=== PATIENT | male | born 1955 | race Caucasian/White ===

== ENCOUNTER → 2023-04-11 23:44 | Outpatient (CLI) | payer MEDICARE, SELFPAY ==
[2023-04-11 19:16] LABS: Basophils % 0.2 % (0.1-2.0); Eosinophils # 0.1 K/mm3 (0.0-0.4); Eosinophils % 1.1 % (0.1-12.0); Hematocrit 51.6 % (42.0-52.0); Hemoglobin 16.2 g/dL (14.1-18.0); Lymphocytes # 1.6 K/mm3 (0.7-4.5); Lymphocytes % 20.3 % (10-50); Mean Corpuscular HGB Conc 31.3 g/dL (31.8-35.4); Mean Corpuscular Hemoglobin 30.7 pg (27.0-31.2); Mean Corpuscular Volume 98.2 fl (80-94); Mean Platelet Volume 9.6 fl (7.4-10.4); Monocytes # 0.7 K/mm3 (0.1-1.0); Monocytes % 8.3 % (1.7-9.3); Neutrophils # 5.6 K/mm3 (1.8-7.8); Neutrophils % 70.1 % (37.0-80.0); Platelet Count 212 K/mm3 (142-424); Red Blood Count 5.26 M/mm3 (4.60-6.20); Red Cell Distribution Width 13.6 % (11.5-17.5)
[2023-04-11 19:34] LABS: Chloride 99 mmol/L (98-107); Potassium 3.9 mmoL/L (3.5-5.1); Sodium 139 mmol/L (136-145)
[2023-04-11 19:37] LABS: Alanine Aminotransferase 27 U/L (12-78); Albumin/Globulin Ratio 1.4 (1.1-1.8); Alkaline Phosphatase 104 U/L (38-126); Anion Gap 12.9 mEq/L (5-15); Aspartate Amino Transferase 35 U/L (17-59); Bilirubin,Total 0.8 mg/dl (0.2-1.3); Blood Urea Nitrogen 19 mg/dl (9-20); Calcium 8.6 mg/dl (8.4-10.2); Carbon Dioxide 31 mmol/L (22.0-30.0); Estimated Glomerular Filt Rate 75 ml/min (>60); GFR (African American) 90 ML/MIN (>60); Globulin 2.8 g/dL (1.3-3.2); Glucose 104 mg/dl (74-100); Total Protein,Serum 6.8 g/dl (6.3-8.2)
[2023-04-11 20:53] LABS: Hemoglobin A1C 5.7 % (4.0-6.0)
== END ==
PROVIDERS: PCP Nurse Practitioner; Visit Provider Nurse Practitioner
DX: L97.919 Non-pressure chronic ulcer of unspecified part of right lower leg with unspecified severity (principal); Z13.1 Encounter for screening for diabetes mellitus; Z79.899 Other long term (current) drug therapy
CPT/HCPCS: 80053; 83036; 85025; 87070; 87205

== ENCOUNTER 2023-09-05 19:24 | Outpatient (CLI) | payer MEDICARE, SELFPAY ==
[2023-09-05 18:59] LABS: Basophils % 0.2 % (0.1-2.0); Eosinophils # 0.1 K/mm3 (0.0-0.4); Eosinophils % 1.6 % (0.1-12.0); Hematocrit 46.5 % (42.0-52.0); Hemoglobin 14.9 g/dL (14.1-18.0); Lymphocytes # 1.6 K/mm3 (0.7-4.5); Lymphocytes % 20.3 % (10-50); Mean Corpuscular HGB Conc 32.1 g/dL (31.8-35.4); Mean Corpuscular Hemoglobin 32.6 pg (27.0-31.2); Mean Corpuscular Volume 101.6 fl (80-94); Mean Platelet Volume 9.2 fl (7.4-10.4); Monocytes # 0.6 K/mm3 (0.1-1.0); Monocytes % 7.3 % (1.7-9.3); Neutrophils # 5.4 K/mm3 (1.8-7.8); Neutrophils % 70.5 % (37.0-80.0); Platelet Count 182 K/mm3 (142-424); Red Blood Count 4.57 M/mm3 (4.60-6.20); Red Cell Distribution Width 13.5 % (11.5-17.5); White Blood Count 7.7 K/mm3 (4.8-10.8)
[2023-09-05 19:31] LABS: Alanine Aminotransferase 22 U/L (12-78); Albumin Level 3.6 g/dl (3.5-5.0); Albumin/Globulin Ratio 1.3 (1.1-1.8); Alkaline Phosphatase 111 U/L (38-126); Anion Gap 9.9 mEq/L (5-15); Aspartate Amino Transferase 31 U/L (17-59); Bilirubin,Total 0.9 mg/dl (0.2-1.3); Blood Urea Nitrogen 11 mg/dl (9-20); Calcium 8.8 mg/dl (8.4-10.2); Carbon Dioxide 30 mmol/L (22.0-30.0); Chloride 101 mmol/L (98-107); Estimated Glomerular Filt Rate 113 ml/min (>60); GFR (African American) 137 ML/MIN (>60); Globulin 2.7 g/dL (1.3-3.2); Glucose 106 mg/dl (74-100); Potassium 3.9 mmoL/L (3.5-5.1); Sodium 137 mmol/L (136-145); Total Protein,Serum 6.3 g/dl (6.3-8.2)
== END 2023-09-05 23:59 ==
LOC: LAB.DROPOF 19:24
PROVIDERS: PCP Family Medicine; Visit Provider Family Medicine
DX: R60.0 Localized edema (principal); L03.115 Cellulitis of right lower limb; Z79.899 Other long term (current) drug therapy
CPT/HCPCS: 80053; 85025

== ENCOUNTER 2024-09-12 13:00 | Outpatient (POV) | payer MEDICARE, SELFPAY ==
--- NOTE | 2024-09-12 13:13 | EXP.PAIN.OV ---
HPI Data of Consult Patient: new to practice Consult date: 09/12/24 Requesting Physician: Sharifa Wagoner APRN Primary Care Provider: Lorne Caruso MD Consult Narrative Reason for consult: Low back pain, bilateral leg pain History of present illness: Mr. Graham is a 68 year old male who presents today as a new patient. He is a referral from [facility]. Today he rates his pain a 7 out of 10. He denies any initial injury or trauma that started his pain. He states that he has had chronic low back pain for years that has progressively worsened over time. He states it goes into both of his bilateral lower extremities. He states it is a constant sensation that is stabbing and then does have numbness and tingling into his legs. Patient does also state that he has peripheral neuropathy on top of it. Patient states that in the past he has had previous cervical fusion and that did injections for years with pain management and that these really did help. He states he has not had any injections since February. Patient states at that time they had even discussed possible stimulator trial and that he never proceeded forward with this. He states that he has been back to begin orthopedics there in [place] who did his previous neck surgery and they were not recommending lumbar surgery that they wanted him to try more conservative treatment such as the [employer] stimulator. Patient states that he has tried oral medications, heat and ice, topicals, physical therapy in the past and continued at home stretching exercise for longer than 12 weeks. Patient does state he has had a right hip replaced and left knee replaced in the past. He states that the pain is interfering with every activity of life. He states he only gets 2 to 3 hours of sleep due to the pain. He states when he gets up and walks that he feels like his legs are getting give out. He states that he still tries to walk is much as possible and exercise but it is gotten very limited. Patient states that he has to rely on ambulatory devices such as a walking stick now continuously. Patient does also make mention that he has his legs wrapped due to a history of blisters on his legs and that they are doing artery surgery in about 2 weeks. He states that they were adding some balloon to his legs.Patient is currently managed with gabapentin 300 mg twice a day from an outside provider. Patient has been tried on pregabalin, oxycodone and Percocet in the past. Patient does have history of heart issues including A-fib and is on blood thinner. He does have a pacemaker in place. He states that the Percocet was discontinued after he went to [facility] from his pain management because they stated he violated this contract with going to a different provider for injections. His Chris has been reviewed. CC: Sharifa Wagoner, [facility] Disclaimer: The information contained in this section may have been updated after the patient was seen, as this information can be updated by other users. Medical History Situational depression Peripheral vascular disease Paroxysmal atrial fibrillation Cellulitis of leg, right Bilateral lower extremity edema Diabetes mellitus screening Nonhealing ulcer of right lower leg Afib Hypertension Arthritis Surgical History Status post total hip replacement, right Hx of eye surgery Hx of carpal tunnel repair Hx of shoulder surgery Hx of left knee surgery Hx of mitral valve repair Hx of heart bypass surgery Family History Father Cancer multiple myeloma Sister Cancer Social History (Updated 09/12/24 @ 13:35 by Sushma aZvala RN) Smoking Status: Current every day smoker alcohol intake: current alcohol intake frequency: holidays/special occasions only current occupational status: retired and disabled Travel in the last 8 weeks: None Review of Systems Review of Systems Review of systems:: pertinent systems reviewed and negative unless documented below Review of systems (narrative): Review of Systems: General: No recent weight changes, no fever, no sleep disturbances Respiratory: No cough, no shortness of air, no recurring pulmonary infections Cardiovascular/peripheral vascular: No chest pain, no palpitations, no edema, no shortness of breath Gastrointestinal: No new onset incontinence, normal bowel movements reported Genitourinary: No new onset incontinence Musculoskeletal: Low back pain, bilateral leg pain Psychiatric: [Normal mood/affect] Neurological: [Denies weakness in extremities], [denies balance issues] Meds Home Medications and Allergies Home Medications ?Medication ?Instructions ?Recorded ?Confirmed ?Type apixaban 5 mg tablet (Eliquis) 5 mg PO DIRECTED Blood Thinner 04/11/23 09/12/24 History atorvastatin 40 mg tablet 40 mg PO DAILY Cholesterol 04/11/23 09/12/24 History losartan 25 mg tablet 25 mg PO DIRECTED BLOOD PRESSURE 04/11/23 09/12/24 History metoprolol succinate 100 mg 100 mg PO DAILY BLOOD PRESSURE 04/11/23 09/12/24 History tablet,extended release 24 hr torsemide 20 mg tablet 20 mg PO BID edema #60 tabs 09/05/23 09/12/24 Rx silver sulfadiazine 1 % topical 1 applic topical DAILY cellulitis 10/20/23 09/12/24 Rx cream (Silvadene) #50 grams aspirin 81 mg tablet,delayed 81 mg PO DAILY 08/08/24 09/12/24 History release cephalexin 500 mg capsule 500 mg PO BID 10 days #20 caps 08/08/24 09/12/24 Rx gabapentin 300 mg capsule 300 mg PO DAILY 08/08/24 09/12/24 History mupirocin 2 % topical ointment 1 applic topical TID #15 grams 08/08/24 09/12/24 Rx New Prescriptions to Start Prescriptions: Allergies Allergy/AdvReac Type Severity Reaction Status Date / Time morphine AdvReac Mild Verified 08/20/24 12:05 Objective Narrative: Physical Exam: General: Alert and oriented x3, no acute distress, pleasant and cooperative Lungs: Respirations even and unlabored, symmetrical chest expansion Eyes: PERRL Musculoskeletal: Flexion and extension of lumbar [spine] somewhat guarded secondary to pain, [antalgic gait noted] Neurological: Speech clear, no gross sensory deficit Additional findings Additional findings: [facility] MRI lumbar with and without contrast 01/09/2023 findings: Progressive intervertebral space narrowing at the L2-L3 level. Severe decubitus space narrowing at L3-L4 and L4-L5 similar to prior examination. Vertebral body heights are maintained. There are Modic type I endplate signal alteration at the L2-L3 level, slightly increased from prior examination. Degenerative retrolisthesis of L1 on L2 measuring 2 mm and retrolisthesis of L2 on L3 measuring 4 mm. Anterolisthesis of L3 on L4 measuring 3 mm. Marrow signal: Modic type I and/or type II marrow signal change involves 1 or more levels between L3 and S1. See details above. Level by level analysis: L1-L2: Unchanged disc bulge with superimposed left sided radicular/foraminal disc protrusion contributing to mild left lateral recess crowding and mild inferior left foraminal narrowing. L2-L3: Progressive right subarticular disc extrusion with caudal migration of 5 mm superimposed upon disc bulge contributing to increased moderate to severe right-sided foraminal narrowing. Mild canal and mild foraminal left-sided narrowing prior to exam. L3-L4: Postoperative level with previous laminectomy. Unchanged disc bulge and osteophytic ridging contributing to mild inferior foraminal narrowing bilaterally. Mild right lateral recess crowding. Canal and right lateral recess are patent. There is bilateral facet arthropathy with superimposed enhancement of synovium in this distribution and indicative of synovitis. L4-L5: Asymmetric left disc bulge and osteophytic ridging with mild bilateral facet arthropathy, similar to prior exam contributing to the severe left and moderate right foraminal narrowing. L5-S1 unchanged disc bulge with advanced bilateral facet arthropathy contributing to moderate to severe bilateral foraminal narrowing Assessment and Plan *Assessment and plan (1) Chronic back pain: Status: Acute Category: Medical Code(s): M54.9 - Dorsalgia, unspecified; G89.29 - Other chronic pain (2) Degenerative disc disease: Status: Acute Category: Medical (3) Lumbar spinal stenosis: Status: Acute Category: Medical Code(s): M48.061 - Spinal stenosis, lumbar region without neurogenic claudication (4) Chronic pain syndrome: Status: Acute Category: Medical Code(s): G89.4 - Chronic pain syndrome (5) Lumbar radiculopathy: Status: Acute Category: Medical Code(s): M54.16 - Radiculopathy, lumbar region Plan Patient has been dealing with chronic to severe pain throughout his low back and bilateral lower extremities for years that is progressively worsened. I did review over the risk and benefits of the spinal cord stimulator trial and he would like to proceed forward with this plan of care. Patient has been seen by neurosurgery and was not being recommended for surgical intervention at this time. It was recommended for possible spinal cord stimulator trial. Patient has tried and failed conservative therapy including oral medication, heat and ice, topicals, physical therapy, at home stretching exercise for longer than 12 weeks including multiple injections including RFA's and prior back surgery. Patient will be submitted for psychological evaluation and if he is deemed an appropriate candidate we will proceed forward with a spinal cord stimulator trial in future. Patient will return to clinic in 1 month. Patient has been instructed to contact the clinic with any concerns before the next appointment. Dr. Mosqueda has reviewed this note and agrees with this plan of care. This note was dictated using voice recognition software and make contain errors or omissions. All injections are used with Lidocaine, Bupivacaine and Depo Medrol. Occasionally urine drug screen is needed to verify patient's compliance with our office pain contract. This is ordered based off specific treatments related to chronic pain with the potential to abuse certain medications.
[2024-09-12 13:34] VITALS: BP 130/64; PULSE 60; RESP 18; O2SAT 94; BMI 35.3
== END 2024-09-12 23:59 | disposition home or self-care (01) ==
PROVIDERS: PCP Family Medicine; Visit Provider Nurse Practitioner Family
DX: M54.9 Dorsalgia, unspecified (principal); M48.061 Spinal stenosis, lumbar region without neurogenic claudication; G89.4 Chronic pain syndrome; M51.16 Intervertebral disc disorders with radiculopathy, lumbar region; Z73.89 Other problems related to life management difficulty; Z96.641 Presence of right artificial hip joint; Z96.652 Presence of left artificial knee joint; F17.210 Nicotine dependence, cigarettes, uncomplicated
CPT/HCPCS: 99202; G0463

== ENCOUNTER 2024-10-18 14:08 | Outpatient (POV) | payer MEDICARE, SELFPAY ==
[2024-10-18 15:10] VITALS: BP 134/75; PULSE 61; RESP 14; O2SAT 95; BMI 35.9
--- NOTE | 2024-10-18 16:14 | A.OFFVIS_ITS ---
[facility] Disclaimer: The information contained in this section may have been updated after the patient was seen, as this information can be updated by other users. Medical History Situational depression Peripheral vascular disease Paroxysmal atrial fibrillation Cellulitis of leg, right Bilateral lower extremity edema Diabetes mellitus screening Nonhealing ulcer of right lower leg Afib Hypertension Arthritis Surgical History Status post total hip replacement, right Hx of eye surgery Hx of carpal tunnel repair Hx of shoulder surgery Hx of left knee surgery Hx of mitral valve repair Hx of heart bypass surgery Family History Father Cancer multiple myeloma Sister Cancer Social History Smoking Status: Current every day smoker alcohol intake: current alcohol intake frequency: holidays/special occasions only current occupational status: other Travel in the last 8 weeks: None PM Subjective & Objective Subjective Subjective:: Patient is a pleasant 68-year-old male who presents today for 1 month follow-up. Today he rates his pain a 7 out of 10. He states he still continues to have the chronic low back pain that does radiate into his bilateral lower extremities with numbness and tingling. Patient states it is interfering with his ability perform activities of daily living such as cooking and cleaning. He states he cannot do anything due to the worsening pain symptoms. He has tried multiple therapies in the past and ongoing including oral medications, heat and ice, topicals, physical therapy, continued at home stretching exercise for longer than 12 weeks that was physician guided. Patient does state that he has had a lot going on related to his legs. Patient states that they were checking his veins and everything for possible blockages and have done multiple interventions. Patient does have a longstanding history of heart related pr oblems including A-fib and is on blood thinners. Patient does see a natural resources technician there at [facility] and does state Dr. Chau and Dr. Monge Who covers his pace maker. Patient has also completed his psychological evaluation about 2 weeks ago and does state that he still would like to proceed forward with the spinal cord stimulator trial. His Chris has been reviewed and is appropriate. Review of Systems: General: No recent weight changes, no fever, no sleep disturbances Respiratory: No cough, no shortness of air, no recurring pulmonary infections Cardiovascular/peripheral vascular: No chest pain, no palpitations, no edema, no shortness of breath Gastrointestinal: No new onset incontinence, normal bowel movements reported Genitourinary: No new onset incontinence Musculoskeletal: Low back pain, bilateral leg pain Psychiatric: [Normal mood/affect] Neurological: [Denies weakness in extremities], [denies balance issues] Pain at rest (0-10 scale): 7 Objective Objective:: Physical Exam: General: Alert and oriented x3, no acute distress, pleasant and cooperative Lungs: Respirations even and unlabored, symmetrical chest expansion Eyes: PERRL Musculoskeletal: Flexion and extension of lumbar [spine] somewhat guarded secondary to pain, [antalgic gait noted] positive leg raise Neurological: Speech clear, no gross sensory deficit Has patient had previous pain injection?: No Conservative treatment options previously tried: Home exercise plan Length of treatment: Longer than 12 weeks Meds Home Medications and Allergies Home Medications ?Medication ?Instructions ?Recorded ?Confirmed ?Type apixaban 5 mg tablet (Eliquis) 5 mg PO DIRECTED Blood Thinner 04/11/23 10/18/24 History atorvastatin 40 mg tablet 40 mg PO DAILY Cholesterol 04/11/23 10/18/24 History losartan 25 mg tablet 25 mg PO DIRECTED BLOOD PRESSURE 04/11/23 10/18/24 History metoprolol succinate 100 mg 100 mg PO DAILY BLOOD PRESSURE 04/11/23 10/18/24 History tablet,extended release 24 hr torsemide 20 mg tablet 20 mg PO BID edema #60 tabs 09/05/23 10/18/24 Rx silver sulfadiazine 1 % topical 1 applic topical DAILY cellulitis 10/20/23 10/18/24 Rx cream (Silvadene) #50 grams aspirin 81 mg tablet,delayed 81 mg PO DAILY 08/08/24 10/18/24 History release cephalexin 500 mg capsule 500 mg PO BID 10 days #20 caps 08/08/24 10/18/24 Rx gabapentin 300 mg capsule 300 mg PO DAILY 08/08/24 10/18/24 History mupirocin 2 % topical ointment 1 applic topical TID #15 grams 08/08/24 10/18/24 Rx New Prescriptions to Start Prescriptions: Allergies Allergy/AdvReac Type Severity Reaction Status Date / Time codeine Allergy Other Verified 10/09/24 13:37 morphine AdvReac Mild Verified 10/09/24 13:37 Assessment and Plan *Assessment and plan (1) Lumbar radiculopathy: Status: Acute Category: Medical Code(s): M54.16 - Radiculopathy, lumbar region (2) Chronic pain syndrome: Status: Acute Category: Medical Code(s): G89.4 - Chronic pain syndrome (3) Lumbar spinal stenosis: Status: Acute Category: Medical Code(s): M48.061 - Spinal stenosis, lumbar region without neurogenic claudication (4) Degenerative disc disease: Status: Acute Category: Medical (5) Chronic back pain: Status: Acute Category: Medical Code(s): M54.9 - Dorsalgia, unspecified; G89.29 - Other chronic pain (6) Peripheral vascular disease: Status: Acute Category: Medical Code(s): I73.9 - Peripheral vascular disease, unspecified Plan I did review over with the patient that although he has completed his psychological evaluation it is not officially in the computer at this point. I did discuss with the patient that we can tentatively get him scheduled for the spinal cord stimulator trial as long as he is deemed an appropriate candidate. We will reach out to that office to confirm that the report is in place and appropriate. Patient agrees with this plan of care. We did review over the risk and benefits of this procedure. I did also discuss with the patient that I do believe he would benefit from a lumbar epidural steroid injection. Patient is experiencing worsening pain in his low back with numbness and tingling into her lower extremities. Patient did have limited range of motion of her lumbar spine with a positive leg raise. I did discuss with patient that I do believe they would benefit from a lumbar epidural steroid injection. Risk and benefits were discussed with patient and the patient would like to proceed forward with this plan of care. Patient is on blood thinners written by natural resources technician there at [facility]. We will reach out to that provider and confirm that he can stop this medication prior to proceeding forward. Patient has tried and failed conservative therapy including continued at home stretching exercise for longer than 12 weeks. He has had chronic back pain for years that is progressively worsened. Patient has had multiple epidurals in the past that state have given significant improvement of more than 50%. He does state it has been well over a year since he has had 1. Patient has not had any epidurals with our office.We will schedule the patient for an LESI L4-L5 under fluoroscopy. Patient has been instructed to contact the clinic with any concerns before the next appointment. Dr. Mosqueda has reviewed this note and agrees with this plan of care. This note was dictated using voice recognition software and make contain errors or omissions. All injections are used with Lidocaine, Bupivacaine and Depo Medrol. Occasionally urine drug screen is needed to verify patient's compliance with our office pain contract. This is ordered based off specific treatments related to chronic pain with the potential to abuse certain medications.
== END 2024-10-18 23:59 | disposition home or self-care (01) ==
PROVIDERS: PCP Family Medicine; Visit Provider Nurse Practitioner Family
DX: M54.16 Radiculopathy, lumbar region (principal); G89.4 Chronic pain syndrome; M48.061 Spinal stenosis, lumbar region without neurogenic claudication; M54.9 Dorsalgia, unspecified; I73.9 Peripheral vascular disease, unspecified; Z96.641 Presence of right artificial hip joint; F17.200 Nicotine dependence, unspecified, uncomplicated; Z73.89 Other problems related to life management difficulty; Z79.01 Long term (current) use of anticoagulants
CPT/HCPCS: 99212; G0463

== ENCOUNTER 2024-11-19 13:20 | Day surgery (SDC) | payer MEDICARE, SELFPAY ==
[2024-11-19 13:27] VITALS: BP 128/67; PULSE 66; RESP 16; TEMP 36.8; O2SAT 95; BMI 35.9
[2024-11-19] MEDS: DEXAMETHASONE 10MG/ML 1ML VIAL 10 MG (13:36)
[2024-11-19 13:38] VITALS: BP 128/67; PULSE 66; RESP 18; O2SAT 95
--- NOTE | 2024-11-19 13:38 | EXP.PAIN.PRO ---
Procedure Date: 11/19/24 Time: 13:20 Anesthesiologist:: Josep Baugh CRNA Complications:: None Pre-procedure Diagnosis:: Degenerative disc lumbar spine multilevels. Lumbar radiculopathy. Lumbar spondylosis. Multilevel lumbar facet arthropathy. Lumbar spine postlaminectomy syndrome. Post-procedure Diagnosis:: Same. Indications for Procedure:: Patient is a very pleasant 68-year-old male who is new to our clinic. He he is here for lumbar epidural steroid injection at the L4-5 level. Patient has lumbar back surgery in the past without hardware. He has had multiple lumbar injections of different variations. He reports low back pain as well as bilateral hip and leg radicular symptoms. He rates his pain 7/10. Procedure Details:: Procedure: Lumbar epidural steroid injection under fluoroscopy Informed consent was obtained and the risks and benefits of the procedure were explained to the patient. The patient was taken to the procedure room and noninvasive monitors placed, including noninvasive blood pressure cuff and pulse oximeter. The back was viewed using C-arm Fluoroscopy and prepped using Chloraprep as a cleansing solution and the L4-L5 interspace was palpated. Skin and subcutaneous tissues were anesthetized using lidocaine 1.5% and a 25-gauge needle. After this, an 18-gauge Touhy epidural needle was placed into the L4-L5 interspace and advanced using fluoroscopic guidance and loss of resistance to air until the epidural space was encountered. After confirmation of needle placement in the epidural space, with dye, a solution containing normal saline, 3 mL and Depo-Medrol 80 mg were incrementally injected into the lumbar epidural space. The patient tolerated the procedure well with no complications. The patient was observed in the Pain Clinic and then discharged home neurologically intact. Plan and Disposition:: Patient was discharged without incident.
[2024-11-19 13:39] VITALS: BP 128/67; PULSE 66; RESP 18; O2SAT 95
[2024-11-19 13:44] VITALS: BP 127/68; PULSE 71; RESP 16; O2SAT 92
== END 2024-11-19 13:44 | disposition home or self-care (01) ==
PROVIDERS: PCP Family Medicine; Visit Provider Nurse Anesthetist, Certified Registered
DX: M51.16 Intervertebral disc disorders with radiculopathy, lumbar region (principal); M47.26 Other spondylosis with radiculopathy, lumbar region; M96.1 Postlaminectomy syndrome, not elsewhere classified
CPT/HCPCS: 62323; J1100

== ENCOUNTER 2024-12-16 14:40 | Outpatient (POV) | payer MEDICARE, SELFPAY ==
--- OUTSIDE RECORDS SUMMARY | 2023-05-11 07:10 | XMS_ITS | Continuity of Care Document ---
Author Organization [facility] Address [address] [place] [address] Phone Care Team Providers Care Digital Sales Director Name Role Phone René Ram MD Unavailable Unavailable Allergies, Adverse Reactions, Alerts Substance Reaction Status Criticality No Known Allergies Active No Inform ation Medications Medication Instructions Dosage Effective Dates (start - stop) Status Comments acetaminophen 500 mg tablet take 1 tablet by oral route every 6 hours as needed - Active ibuprofen 400 mg tablet take 1-2 tablets by oral route every 6 hours as needed for pain - Active oxycodone 5 mg tablet take 1 - 2 tablets by ORAL route every 4 - 6 hours as needed for moderate to severe post op pain - Active cyclobenzaprine 5 mg tablet take 1 - 2 tablets by oral route every 8 hours as needed for muscle spasms and/or pain - Active Medrol (Lorenzo) 4 mg tablets in a dose pack take by Oral route take as directed Not Available - Active oxycodone 5 mg capsule take 1 - 2 capsule by oral route every 6 hours as needed for pain as needed for Pain,Severe 7-10 On Pain Scale 5 MG - Active M54.16 Percocet 5 mg-325 mg tablet take 1 - 2 Tablet by ORAL route every 4 - 6 hours as needed 1-2 Tablet - Active MAX 9 A DAY promethazine 25 mg tablet take 1 tablet by oral route every 4 - 6 hours as needed 25 MG - Active Procedures Procedure Date Office/outpatient visit,est, mod 2022 DRAIN/INJ JOINT/BURSA W/US Methylprednisolone 80 MG inj Office/outpatient visit,est, mod 2022 Office/outpatient visit,est, mod 2022 Office/outpatient visit,est, mod 2022 Wrist endoscopy/rel trans carp lig Office/outpatient visit,new, mod 2022 Office/outpatient visit,est, mod 2022 Postop followup visit Postop followup visit Postop followup visit Remove lumbar spine lamina, 1 seg Remove added spine lamina, 1 seg 2021 PA Remove Lumbar Spine Lamina, 1 Seg May PA Remove Added Spine Lamina, 1 Seg Office/outpatient visit,est, mod 2021 Inject foramin, lumb/sacral, single Dexamethasone sodium phos Office/outpatient visit,est, mod 2021 DESTROY LUMB/SAC FACET JNT DESTROY L/S FACET JNT ADDL Dexamethasone sodium phos INJ PARAVERT F JNT L/S 1 LEV INJ PARAVERT F JNT L/S 2 LEV INJ PARAVERT F JNT L/S 1 LEV INJ PARAVERT F JNT L/S 2 LEV Office/outpatient visit,est, mod 2021 Inject foramin, lumb/sacral, single Dexamethasone sodium phos Naropin Office/outpatient visit,est, mod 2021 Naropin Methylprednisolone 80 MG inj Njx interlaminar lmbr/sac Office/outpatient visit,est, mod 2021 Office/outpatient visit,est, mod 2017 X-ray exam of neck spine2-3 views X-ray exam lwr spine, min 4 views Postop followup visit Revision of ulnar nerve at elbow 2016 Office/outpatient visit,new, mod 2016 Postop followup visit Revision of ulnar nerve at elbow 2013 Wrist endoscopy/rel trans carp lig Office/outpatient visit,new, mod 2013 Office/outpatient visit,est, mod 2013 MUSC TEST DONE W/N TEST COMP NRV CNDJ TST 5-6 STUDIES Office/outpatient visit,est, mod 2013 Office consultation, moderate 4 X-ray exam of neck spine2-3 views Advance Directives Directive Yes / No Effective Date File Name No Information Encounters Encounter Description Practice Location Reason(s) For Visit Diagnoses Date Provider Providers Copied on Encounter Office/outpa tient visit,est, mod [facility], [facility] [place], [place], [facility], tel:[phone] [facility] Unilateral primary osteoarthriti s, right hip 3 Yo Merritt. [address] [place], [id number], [place]. tel:[phone] Referring Provider: Alvarez Story, [address] [place], [place], [facility]. tel:[phone] [facility], [address] [place], [place], [facility], [place] tel:[phone] [facility] Unilateral primary osteoarthriti s, right hip 3 Travis Pino. [address] [place], [place], [facility], [place]. tel:[phone] Referring Provider: Alvarez Story, [address] [place], [place], [facility]. tel:[phone] Office/outpa tient visit,est, mod [facility], [address] [facility], [place], [facility], [place] tel:[phone] [facility] Unilateral primary osteoarthriti s, right hip 3 Yo Merritt. [address], [place], [place], [id number], [place]. tel:[phone] Referring Provider: Alvarez Story, [address] [facility], [place], [place], [facility]. tel:[phone] Office/outpa tient visit,est, mod [facility], [address], [facility], [place] tel:[phone] [facility] Spinal stenosis, lumbar region without neurogenic moo 3 Theodore Pino. [address] [facility] [place], [place], [place], [facility], [place]. tel:[phone] Referring Provider: Alvarez Story, [address] [facility], [place], [facility]. tel:[phone] Office/outpa tient visit,est, mod [facility], [facility] [place], [facility], [place] tel:[phone] [facility] Radiculopathy , lumbar region 3 Vicenta Rodriguez. [address] [place] [address], [address], . tel:[phone] Referring Provider: Michael Yadav, [address] [place] [address], [address]. tel:[phone] [facility], [address] [place], [place], [facility], [place] tel:[phone] [facility] Other low back pain 3 Vicenta Rodriguez. [address] [place] [address], [address], . tel:[phone] Referring Provider: Alvarez Story, [address] [facility], [place], [facility]. tel:[phone] [facility], [facility] [place], [facility], [place] tel:[phone] [facility] No Information Oct- 3 Janak Higigns. [address] [facility], [place], [place], [id number], [place]. tel:[phone] Referring Provider: Ronaldo Briceno, [address] [place] [address], [place], [address]. tel:[phone] [facility], [facility] [place], [facility], [place] tel:[phone] [facility] No Information 3 Janak Higgins. [address] [facility], [place] [address], [place], [place], [id number], [place]. tel:[phone] Referring Provider: Alvarez Story, [address] [place] [address], [facility]. tel:[phone] Office/outpa tient visit,new, mod [facility], [address] [place] [address], [facility], [place] tel:[phone] [facility] Carpal tunnel syndrome, left upper limb Apr-0 3 Janak Ronaldo. [address] [facility], [place] [address], [place], [place], [id number], [place]. tel:[phone] Specialist: Alvarez Alejo MD, [facility] [place], [address]. tel:[phone] ring Provider: Alvarez Story, [facility] [address] [place], [facility]. tel:[phone] Office/outpa tient visit,est, mod [facility], [facility] [place], [facility], [place] tel:[phone] [facility] Spinal stenosis, lumbar region without neurogenic moo Mar-2 3 Theodore Pino. [facility] [address] [place], [facility], . tel:[phone] Specialist: Alvarez Alejo MD, [facility] [place], [address]. tel:[phone] [place] [address] Provider: Michael Yadav, [address] [place] [address], [address]. tel:[phone] [facility], [facility] [place], [facility], tel:[phone] [facility] Spinal stenosis, lumbar region without neurogenic moo Suhail-3 0- 3 Theodore Pino. [address] [place] [address], [facility], . tel:[phone] Specialist: Alvarez Alejo MD, [facility] [place], [address]. tel:[phone] ring Provider: Michael Yadav, [address] [place] [address], [address]. tel:[phone] [facility], [facility] [place], [facility], [place] tel:[phone] [facility] Spinal stenosis, lumbar region without neurogenic claudRadiculo magen, lumbar regionSpondyl osis w/o myelopathy or radiculopathy , lumbar region Dec- 2 Coffaro Phu. [facility] [place], [facility], . tel:[phone] Specialist: Scottie Reid, [facility] [place] [facility] [address], [address]. tel:[phone] ring Provider: Michael Yadav, [address] [place], [address]. tel:[phone] [facility], [facility] [place], [facility], [place] tel:[phone] [facility] Spinal stenosis, lumbar region without neurogenic claudRadiculo magen, lumbar region Nov- 2 Coffaro Phu. [address] [place], [place], [facility], . tel:[phone] Referring Provider: Michael Yadav, [address] [place] [address], [address]. tel:[phone] [facility], [facility] [place], [facility], tel:[phone] [facility] No Information 2 Theodore Pino. [address] [place], [facility], . tel:[phone] Referring Provider: Michael Yadav, [address] [place] [address], [address]. tel:[phone] [facility], [facility] [place], [facility], tel:[phone] [facility] No Information 2 Arabella Bay. [address] [place], [place], [facility], . tel:[phone] Referring Provider: Michael Yadav, [address] [place] [address], [address]. tel:[phone] [facility], [facility] [place], [facility], tel:[phone] [facility] No Information 2 Theodore Pino. [address] [place], [facility], . tel:[phone] Referring Provider: Michael Yadav, [address] [place] [address], [address]. tel:[phone] Office/outpa tient visit,est, mod [facility], [facility] [place], [facility], tel:[phone] [facility] Spinal stenosis, lumbar region without neurogenic moo Sep- 2 Theodore Pino. [address] [place], [facility], . tel:[phone] Specialist: Scottie Reid, [address] [facility] [address], [address]. tel:[phone] ring Provider: Michael Yadav, [address] [place] [address], Count includes the [facility]. tel:[phone] [facility], [facility] [place], [facility], tel:[phone] [facility] Radiculopathy , lumbar region 2 Vicenta Rodriguez. [address] [place] [address], Count includes the [facility], . tel:[phone] Referring Provider: Michael Yadav, [address] [place] [address], Count includes the [facility]. tel:[phone] Office/outpa tient visit,est, mod [facility] [address], [facility], tel:[phone] [facility] Spondylosis w/o myelopathy or radiculopathy , lumbar regionRadicul opathy, lumbar regionSpinal stenosis, lumbar region with neurogenic claudication 2 Prasanna Jacque. [address] [place] [address], Count includes the [facility], . tel:[phone] Referring Provider: Michael Yadav, [address] [place] [address], Count includes the [facility]. tel:[phone] [facility] [address], [facility], [place] tel:[phone] [facility] Spondylosis w/o myelopathy or radiculopathy , lumbar region 2 Dheeraj Dejon. [address] [place] [address], [id number], [place]. tel:[phone] Referring Provider: Michael Yadav, [address] [place] [address], Count includes the [facility]. tel:[phone] [facility] [address], [facility], [place] tel:[phone] [facility] Spondylosis w/o myelopathy or radiculopathy , lumbar region 2 Dheeraj Dejon. [address] [place] [address], [id number], . tel:[phone] Referring Provider: Michael Yadav, [address] [place] [address], [address]. tel:[phone] [facility] [address], [facility], [place] tel:[phone] [facility] Spondylosis w/o myelopathy or radiculopathy , lumbar region 2 Dheeraj Dejon. [address] [place], [place], [id number], [place]. tel:[phone] Referring Provider: Michael Yadav, [address] [place] [address], Count includes the [facility]. tel:[phone] Office/outpa tient visit,est, mod [facility], [address] [place] [address], [facility], [place] tel:[phone] [facility] Radiculopathy , lumbar regionInterve rtebral disc disorders w radiculopathy , lumbar regionSpinal stenosis, lumbar region with neurogenic claudicationS pondylosis w/o myelopathy or radiculopathy , lumbar region 2 Prasanna Jacque. [address] [place] [address], [address], [place]. tel:[phone] Referring Provider: Michael Yadav, [address] [place] [address], [address]. tel:[phone] [facility] [address], [facility], tel:[phone] [facility] Spinal stenosis, lumbar region with neurogenic claudication 2 Vicenta Rodriguez. [address] [place] [address], [address], [place]. tel:[phone] Referring Provider: Michael Yadav, [address] [place] [address], Count includes the [facility]. tel:[phone] [facility], [address] [place] [address], [address], tel:[phone] [facility] Radiculopathy , lumbar region May- 0202 2 Vicenta Rodriguez. [address] [place] [address], . tel:[phone] Referring Provider: Michael Yadav, [address] [place] [address]. tel:[phone] Office/outpa tient visit,est, mod [facility], [address] [place] [address], [facility], tel:[phone] [facility] Radiculopathy , lumbar region 2 2 Vicenta Rodriguez. [address] [place] [address], Count includes the [facility], . tel:[phone] Referring Provider: Michael Yadav, [address] [place] [address]. tel:[phone] [facility], [address] [place] [address], [address], [place] tel:[phone] [facility] Intervertebra l disc disorders w radiculopathy , lumbar region Apr-2 8 2 Vicenta Rodriguez. [address] [place] [address], Count includes the [facility], . tel:[phone] Referring Provider: Michael Yadav, [address] [place] [address]. tel:[phone] Office/outpa tient visit,est, mod [facility] [address], [address], tel:[phone] [facility] Spinal stenosis, lumbar region with neurogenic claudication Apr-2 1202 2 Vicenta Rodriguez. [address] [place] [address], Count includes the [facility], [place]. tel:[phone] Referring Provider: Michael Yadav, [address] [place] [address], [address]. tel:[phone] [facility], [address] [place] [address], [facility], tel:[phone] [facility] Radiculopathy , lumbar region Sep- 2 Vicenta Rodriguez. [address] [place] [address], [address], [place]. tel:[phone] Referring Provider: Michael Yadav, [address] [place] [address], [address]. tel:[phone] Office/outpa tient visit,est, mod [facility], [address] [place] [address], [facility], [place] tel:[phone] [facility] No Information 0 8 Theodore Pino. [address] [place] [address], [facility], [place]. tel:[phone] [facility], [address] [place] [address], [facility], [place] tel:[phone] [facility] No Information Jun-2 7 Janak Ronaldo. [address] [facility], [place] [address], [place], [place], [id number], [place]. tel:[phone] [facility] [address], [facility], [place] tel:[phone] [facility] No Information Jun- 7 Janak Ronaldo. [address] [facility], [address], [place], [place], [id number], [place]. tel:[phone] [facility] [address], [facility], [place] tel:[phone] [facility] No Information Dec- 7 Janak Ronaldo. [address] [facility], [address], [place], [place], [id number], [place]. tel:[phone] Office/outpa tient visit,new, mod [facility], [facility] [place], [facility], tel:[phone] [facility] Lesion of ulnar nerve, right upper limb Jun- 7 Janak Ronaldo. [address] [facility], [address], [address] [place] [address], . tel:[phone] [facility], [facility] [place], [facility], tel:[phone] [facility] No Information Mar-0 3 4 Janak Ronaldo. [address] [facility], [place] [address], [place], [address] [place] [address], [place]. tel:[phone] [facility], [address] [place] [address], [facility], tel:[phone] [facility] No Information 2 4 Janak Ronaldo. [address] [facility], [address], [address] [place] [address], [place]. tel:[phone] Office/outpa tient visit,new, mod [facility], [address] [place] [address], [facility], tel:[phone] [facility] hand (chief complaint) No Information 4 Janak Ronaldo. [address], [address] [place] [address], [place]. tel:[phone] Referring Provider: Alvarez Story, [address] [place], [place], [facility]. tel:[phone] Office/outpa tient visit,est, mod [facility], [address] [place] [address], [facility], tel:[phone] [facility] No Information Feb-0 4 Theodore Pino. [facility] [place], [facility], [place]. tel:[phone] [facility], [address] [place], [place], [facility], tel:[phone] [facility] No Information 4 Mel López. [address], [address], [place], [place], [id number], [place]. tel:[phone] Referring Provider: Alvarez Story, [address] [place], [facility]. tel:[phone] Office/outpa tient visit,est, mod [facility], [facility] [place], [facility], tel:[phone] [facility] No Information 4 Theodore Pino. [address] [place], [facility], [place]. tel:[phone] Office consultation , moderate [facility], [facility] [place], [facility], tel:[phone] [facility] No Information 4 Theodore Pino. [address] [place], [facility], . tel:[phone] Referring Provider: Scottie Barton, [address] [place] [address] [facility] [address], [address]. tel:[phone] Family History Family Member Type Diagnosis Age At Onset Mother Problem (finding) Family history of Osteo arthritis Father Problem (finding) Hypertension Payers Payer name Insurance type Covered constitution party ID Authorbrijesha soila(s) Dawna Medicare - [id number] Social History Type Description Quantity Date Captured Comments Sex Male Smoking Status No Information Chief Complaint And Reason For Visit No Information Reason For Referral Reason For Referral No Information Plan Of Treatment Date Type Action Status Future Order: Radiology Order MR I Lumbar Spine W/WO Contrast ([id number]), Ordered on: Ordered Future Order: Radiology Order MR I Lumbar Spine WO Contrast ([id number]), Ordered on: Ordered History Of Present Illness Encounter Date Complaint History Of Prese nt Illness hip hand Location: right hand. Functional Status Date Functional Assessmen t No Information Instructions Date Instruction Additional Infor mation No Information Assessments Type Assessment Date No Information Patient Care Teams Name Effective Dates (start - stop) Status Members No Information
--- OUTSIDE RECORDS SUMMARY | 2024-11-07 14:00 | XMS_ITS | Encounter Summary ---
Author Organization [place] [address] Care Team Providers Care Egg Breaker Name Role Phone Rene Caruso MD Primary Care Provider [phone] Reason for Visit * Reason Comments ICD Check Amos Graham is here for LUMBER MARKER visit. MDT S ICD 10/21/19 TC Encounter Details Date Type Department Care Team (Latest Contact Info) Description 11/07/2024 2:00 PM EDT Office Visit [facility] [address] [facility] [address] [place] [address] Dejon Mcqueen MA Ischemic cardiomyopathy (Primary Dx); Implantable defibrillator reprogramming/check; ICD (implantable cardioverter-defibrilla tor), single, in situ Social History Tobacco Use Types Packs/Day Years Used Date Smoking Tobacco: Former Cigarettes 1.5 15 0 07/10/1984 - 07/10/1999 Smokeless Tobacco: Never Alcohol Use Standard Drinks/Week Comments Yes 12 (1 standard drink = 0.6 oz pu re alcohol) couple beers daily [facility] Utilities Answer Date Recorded In the past 12 months has [employer], gas, oil, or water [employer] threatened to shut off services in your home? No 10/01/2023 Overall Financial Resource Strain (CARDIA) Answe r Date Recorded How hard is it for you to pa y for the very basics like food, housing, medical care, and heating? Not hard at all 10/01/2023 PHQ-2 Answer Date Recorded PHQ-2 Total Score 0 10/01/2023 [facility] Occupat [facility] - Occupational Stress Questionnaire Answer Date Recorded Do you feel stress - tense, restless, nervous, or anxious, or unable to sleep at night because your mind is troubled all the time - these days? Not at all 10/01/2023 Exercise Vital Sign Answer Date Recorde d On average, how many days pe r week do you engage in moderate to strenuous exercise (like a brisk walk)? 0 days 10/01/2023 On average, how many minutes do you engage in exercise at this level? 0 min 10/01/2023 Hunger Vital Sign Answer Date Recorded Within the past 12 months, y ou worried that your food would run out before you got the money to buy more. Never true 10/01/19 24 Within the past 12 months, t he food you bought just didn't last and you didn't have money to get more. Never true 10/01/2023 PRAPARE - Transportation Answer Date Re corded Lack of Transportation (Medical) No 10/31/2019 Lack of Transportation (Non-Medical) No 10/31/2019 [facility] IP Transportation Answer D ate Recorded In the past 12 months, has l ack of reliable transportation kept you from medical appointments, meetings, work or from getting things needed for daily living? No 10/01/2023 Sexually Active Control Partners Comments Never Sex and Gender Information Value Date Recorded Sex Assigned at Not on file Legal Sex Male 11:59 AM EDT Gender Identity Not on file Sexual Orientation Not on file documented as of this encounter Functional Status * Is the person deaf or does he/she have serious difficulty hearing? Answer Date of Assessment Author No 08/11/2020 1:05 PM Penny Youngblood MA * Is the person blind or does he/she have serious difficulty seeing even when wearing glasses? Answer Date of Assessment Author No 08/11/2020 1:05 PM Penny Youngblood MA * Does this person have serious difficulty walking or climbing stairs? Answer Date of Assessment Author No 08/11/2020 1:05 PM Penny Youngblood MA * Does this person have difficulty dressing or bathing? Answer Date of Assessment Author No 08/11/2020 1:05 PM Penny Youngblood MA * Because of a physical, mental or emotional condition, does this person have difficulty doing errands alone such as visiting a doctor's office or shopping? Answer Date of Assessment Author No 08/11/2020 1:05 PM Penny Youngblood MA documented as of this encounter Mental Status * Because of a physical, mental or emotional condition, does this person have serious difficulty concentrating, remembering or making decisions? Answer Entry Date Author No 08/11/2020 1:05 PM Penny Youngblood MA documented in this encounter Progress Notes * Dejon Mcqueen MA - 11/07/2024 2:00 PM EDT Amos Porsha Graham is here for LUMBER MARKER visit. MDT S ICD 10/21/19 TC. See MD note and PDF for device report and parameters. documented in this encounter Plan of Treatment Upcoming Encounters Date Type Department Care Team (Late st Contact Info) Description 06/19/2025 1:45 PM EST Office Visit [facility] [address] [address] Jona Chau MD [address] [place] [address] 11/07/2025 1:30 PM EDT Office Visit [facility] [address] [place] [phone] 11/07/2025 2:00 PM EDT Office Visit [facility] [address] [place] [phone] Funmi Aldrich, LUMBER MARKER [address] [place] [address] Scheduled Orders Name Type Priority Associated Diagnoses Orde r Schedule MT PRGRMNG DEV EVAL IMPLANTABLE IN PERSN 1 LD DFB MT Charge Routine Ischemic cardiomyopathy Implantable defibrillator reprogramming/check ICD (implantable cardioverter-defibrillat or), single, in situ Ordered: 11/07/2024 MT INTERROG DEV EVAL ICPMS PHYS/QHP IN PERSON MT Charge Routine Ischemic cardiomyopathy Implantable defibrillator reprogramming/check ICD (implantable cardioverter-defibrillat or), single, in situ Ordered: 11/07/2024 documented as of this encounter Goals Goal Patient Goal Type Associated Problems Recent Progress Patient-Stated? Author Blood Pressure < 140/90 Blood Pressure 130/68(11/07 2:25 PM EDT) Temi Cardenas APRN Maintain a healthy diet, exercise regularly and maintain an ideal body weight General No Temi Isabel APRN Wound Healing General Not on track(2023 4:43 PM EDT) No Clari Quinn, RN Note: Wound Care Goals RIGHT LOWER LEG Patient is an active participant in their wound care plan. Patient is attending wound care visits regularly as recommended by physician. Patient is following instructions on treatment plan including follow up appointments, dressing change recommendations, pressure relief if applicable, smoking cessation if applicable, wearing compression therapy (wraps, stockings, etc.) as directed by physician. Patient notifies wound care staff of any problems. Patient will maintain optimal edema control. Wound volume reduction goals 30% by week 4 50% by week 8 80% by week 12 100% by week 14 Nursing Diagnosis: Impairment of skin integrity as evidence by open wound. Risk for infection related to open wound. Nursing Interventions to assist with healing venous wounds: Assess pain status. Assess wound size, tahira wound, drainage and odor. Educate patient and caregivers on signs and symptoms of infection, wound care, compression therapy and importance of prompt treatment. Assess for peripheral edema. If present , measure ankle, calf and foot circumference on initial visit and as indicated. Palpate pedal pulses. Use doppler if unable to palpate dorsalis pedal or posterior tibial pulses. Assess pedal pulses on each visit. Use doppler if unable to palpate dorsalis pedal or posterior tibial pulses. Obtain initial physician orders for Venous Wounds to include prealbumin, venous studies, ankle-brachial index and appropriate dressing to maintain microenvironment conducive to healing. Refer to PCP and/or Vascular Specialist as indicated. Monitor patient compliance with wound care and edema management. Monitor for complications associated with compression therapy. Stay Tobacco Free Lifestyle No Temi Isabel APRN documented as of this encounter Procedures Procedure Name Priority Date/Time Associated Diagnosis Comments PACEART REPORT Routine 11/07/2024 5:12 PM EDT documented in this encounter Results * PACEART REPORT (11/07/2024 5:12 PM EDT) 11/07/2024 5:12 PM EDT Narrative [facility] - 11/07/2024 2:21 PM EDT Amos Graham is here for LUMBER MARKER visit. MDT S ICD 10/21/19 TC. See MD note and PDF for device report and parameters. us Jorden Cotton MD [facility] CARDIAC CATH ORDERAB LES Final Result [facility] [address] [place] [address] documented in this encounter Visit Diagnoses Diagnosis Ischemic cardiomyopathy- Primary Other specified forms of chronic ischemic heart disease Implantable defibrillator reprogramming/check Fitting and adjustment of automatic implantable cardiac defibrillator ICD (implantable cardioverter-defibrillator), single, in situ documented in this encounter Additional Health Concerns Assessment Noted Time A fall risk assessment has been complete d for the patient 11/30/2023 2:14 PM EDT documented as of this encounter Care Teams Egg Breaker Relationship Specialty Start Date End Date Rene Caruso MD [facility] [address] [place] [address] PCP - General Family Medicine 10/05/23 documented as of this encounter
--- OUTSIDE RECORDS SUMMARY | 2024-11-07 14:30 | XMS_ITS | Encounter Summary ---
Author Organization [place] [address] Care Team Providers Care Wire Rigger Name Role Phone Rene Caruso MD Primary Care Provider [phone] Reason for Referral * Echo (Routine) - Closed Specialty Diagnoses / Procedures Referred By Sharri landrum Referred To Contact Radiology Diagnoses VT (ventricular tachycardia) (HCC) Healthcare maintenance Shortness of breath Procedures EC ECHOCARDIOGRAM COMPLETE W DOPPLER AND COLOR FLOW MAPPING Funmi Aldrich APRN [address] [place] [address] Phone: tel: fax: Referral ID Status Reason Start Date Expiration Date Visits Re quested Visits Authorized [id number] Closed 11/07/2024 11/07/2026 1 1 Reason for Visit * Reason Comments Follow-up 6 month f/u MDT S IC D.meds per pt report Encounter Details Date Type Department Care Team (Late st Contact Info) Description 11/07/2024 2:30 PM EDT Office Visit [facility] [address] [facility] [address] [place] [address] Funmi Aldrich APRN [address] [place] [address] Healthcare maintenance (Primary Dx); VT (ventricular tachycardia) (HCC); Shortness of breath Social History Tobacco Use Types Packs/Day Years Used Date Smoking Tobacco: Former Cigarettes 1.5 15 0 07/10/1984 - 07/10/1999 Smokeless Tobacco: Never Alcohol Use Standard Drinks/Week Comments Yes 12 (1 standard drink = 0.6 oz pu re alcohol) couple beers daily [facility] Utilities Answer Date Recorded In the past 12 months has th e electric, gas, oil, or water company threatened to shut off services in your home? No 10/01/2023 Overall Financial Resource Strain (CARDIA) Answe r Date Recorded How hard is it for you to pa y for the very basics like food, housing, medical care, and heating? Not hard at all 10/01/2023 PHQ-2 Answer Date Recorded PHQ-2 Total Score 0 10/01/2023 [facility] - Occupational Stress [...] 10/31/2019 Lack of Transportation (Non-Medical) No 10/31/2019 [facility] IP Transportation Answer D ate Recorded [...] on file documented as of this encounter Last Filed Vital Signs Vital Sign Reading Time Taken Comments Blood Pressure 130/68 11/07/2024 2:25 PM EDT Pulse 80 11/07/2024 2:25 PM EDT Temperature - - Respiratory Rate - - Oxygen Saturation 92% 11/07/2024 2:25 PM EDT Inhaled Oxygen Concentration - - Weight 119.7 kg (264 lb) 11/07/2024 2:25 PM EDT Height - - Body Mass Index 35.8 06/27/2024 8:55 AM EST documented in this encounter Functional Status * Is the person deaf or does he/she have serious difficulty hearing? Answer Date of Assessment Author No 08/11/2020 1:05 PM EST Penny Stearns MA * Is the person blind or [...] of Assessment Author No 08/11/2020 1:05 PM EST Penny Stearns MA * Because of a physical, mental [...] Penny Youngblood MA documented in this encounter Ordered Prescriptions Prescription Sig Dispense Quantity Refills Last Filled Start Date End Date amiodarone (PACERONE) 200 mg Oral TabletIndications:V T (ventricular tachycardia) (HCC),Healthcare maintenance,Shortne ss of breath Take 1 Tablet by mouth daily. 11/07/2024 documented in this encounter Progress Notes * Funmi Aldrich APRN - 11/07/2024 2:30 PM EDT Cardiac Electrophysiology Progress Note Device Clinic Follow-Up Subjective: Patient ID: Amos Graham is a 68 y.o. male. Chief Complaint Patient presents with Follow-up 6 month f/u MDT S ICD .meds per pt report Amos Graham 68 y.o. male who presents today for a follow-up and device interrogation. No CP, pressure No palpitations, fluttering No dizziness, presyncope, syncope No orthopnea, PND (+) peripheral edema - saw Dr. Capone, spider veins also - Sees wound care Shortness of breath. - Patient had adjustment to his device so that his device is now rate responsive (VVIR). Device repwalked him around office and patient already feels better. No signs of bleeding Discussed potential watchman. Patient is paying $300 for his [employer] Matrix. Will forward to [place] to reach out and discuss further with patient. Chief Complaint Patient presents with Follow-up 6 month f/u MDT S ICD .meds per pt report Doing well. No pain at implant location. Since last visit no issues with pacemaker. No presyncope or syncope. Follow-up Chronicity: PAF,ICM,chf,s/p icd. Pertinent negatives include no arthralgias, coughing, diaphoresis,fatigue, headaches, myalgias, rash, urinary symptoms, vertigo or weakness. Their chronic cardiac conditions are: Problem List Cardiology Problems HTN (hypertension) Mitral valve disease Paroxysmal atrial fibrillation (HCC) Cardiac arrest with ventricular fibrillation (HCC) NSTEMI (non-ST elevated myocardial infarction) (HCC) Coronary artery disease involving [place] coronary artery of [place] heart with angina pectoris Cardiogenic shock (HCC) ICD (implantable cardioverter-defibrillator), single, in situ Hx of mitral valve replacement S/P CABG x 2 Chronic systolic heart failure (HCC) PAD (peripheral artery disease) Acute on chronic HFrEF (heart failure with reduced ejection fraction) ([facility]) Varicose veins of leg with edema, right Edema of both lower legs due to peripheral venous insufficiency Ischemic cardiomyopathy Social History Tobacco Use Smoking Status Former Current packs/day: 0.00 Average packs/day: 1.5 packs/day for 15.0 years (22.5 ttl pk-yrs) Types: Cigarettes Start date: 07/10/1984 Quit date: 07/10/1999 Years since quittin.3 Smokeless Tobacco Never Current Outpatient Medications Medication Sig Dispense Refill amiodarone (PACERONE) 200 mg Oral Tablet Take 1 Tablet by mouth daily. aspirin 81 mg Oral Tablet, Chewable Take 1 Tablet by mouth daily. 30 Tablet 11 atorvastatin (LIPITOR) 40 mg Oral Tablet TAKE 1 TABLET BY MOUTH EVERY DAY AT NIGHT 100 Tablet 2 ELIQUIS 5 mg Oral Tablet TAKE 1 TABLET ORALLY TWICE DAILY 180 Tablet 1 gabapentin (NEURONTIN) 300 mg Oral Capsule Take 1 Capsule by mouth 2 times daily. 60 Capsule 4 glucosamine-chondroitin 500-400 mg Oral Tablet Take 1 Tablet by mouth 2 times daily. losartan (COZAAR) 50 mg Oral Tablet TAKE 1 AND 1/2 TABLETS DAILY BY MOUTH 150 Tablet 2 metoprolol succinate ER (TOPROL-XL) 100 mg Oral Tablet Sustained Release 24 hr Take 1.5 Tablets by mouth 2 times daily. 270 Tablet 3 torsemide (DEMADEX) 20 mg Oral Tablet TAKE 1 TABLET BY MOUTH EVERY DAY 100 Tablet 2 No current facility-administered medications for this visit. Patients past medical, family and social histories were reviewed and updated. There were no changesexcept as noted Review of Systems Constitutional: Negative for diaphoresis, fatigue, malaise/fatigue, weight gain and weight loss. HENT: Negative for nosebleeds. Cardiovascular: Positive for dyspnea on exertion and leg swelling. Negative for palpitations and syncope. Respiratory: Negative for cough and shortness of breath. Skin: Negative for flushing and rash. Musculoskeletal: Positive for back pain (suppose to get a stimulator - having ins issues). Negativefor arthralgias, falls and myalgias. Uses a cane Gastrointestinal: Negative for heartburn and melena. Neurological: Negative for dizziness, headaches, vertigo and weakness. Psychiatric/Behavioral: Negative for depression. The patient does not have insomnia. Allergic/Immunologic: Negative for hives and persistent infections. Objective: Patient Vitals for the past 24 hrs: Pulse BP 11/07/24 1425 80 130/68 Body mass index is 35.8 kg/m??. General: No apparent distress. Alert and oriented. Neck:Trachea is midline. Neck veins are flat. Respiratory: Clear to auscultation bilaterally Cardiovascular: Rhythm is regular. S1 and S2 normal. Incision is well healed Abdomen: Abdomen is soft and non tender. Extremeties: 2+ Edema. PVD changes BLE. Clubbing is absent. Cyanosis is absent. Wraps on BLE. Skin: Warm and dry. Neurological: Cranial nerves are grossly intact. Speech is normal. S Chamber ICD Box Spring Frame Builder: CORA RV: 11.9mV, 1.0@0.4ms, 456ohms INSTRUMENT MECHANIC: 86.1% Atrial Arrhythmia [place]: 2.2% - decreased from 23% 04/17/24 Pacing Mode/LRL/URL: VVIR 60/120 Arrhythmias: 2 NSVT 06/05/24 longest 3 sec VR 194-273, 304 AF, last 10/26/24, longest 48 min, VR 77-115 [id number] Stroke Risk Points: 4 Values used to calculate this score: Points Metrics 1 Has Congestive Heart Failure: Yes 1 Has Hypertension: Yes 1 Age: 68 0 Has Diabetes: No 0 Had Stroke: No Had TIA: No Had Thromboembolism: No 1 Has Vascular Disease: Yes 0 Clinically Relevant Sex: Male Assessment and Plan: MDT S Chamber ICD Normal device function NOT dependent Stable battery and lead parameters 4.2 years left on battery until MIKI OptiVol WNL, histograms flat, trends stable, rate response turned on SCD VF - MDT S ICD 10/21/2019 - BB - Amio 200 mg PO QD > started 04/12/24 - ALT/AST (12/25/23) - TSH 0.864 (02/09/24) - CXR 09/30/23 - No ILD - CXR, CMP and TSH ordered 11/07/24 Atrial fibrillation - Persistent - Rate controlled Toprol 150 mg BID - Continue eliquis 5 mg bid HFrEF - LVEF 45% (06/12/24) - Mixed etiology; ischemic and non ischemic - Euvolemic on exam - Optivol within normal limits - Keep f/u with Dr. Chau - GDMT, per Cards - Echo ordered - INSTRUMENT MECHANIC 86.1%, increasing CAD/NSTEMI - S/p CABG x 2 10/17/2019- VG LAD, VG ramus - C 10/03/23 - patent VG to LAD and ramus, stable coronary arteries. Prox LAD > Mid LAD 60% stenosis Mitral Valve Disease - Hx of bioprosthetic mitral valve 10/17/2019 Patient doing well. Will get repeat echo to assess EF as he is INSTRUMENT MECHANIC 86.1%. He will get TSH, CMP and CXR as he is on Amio. Patient will continue his medication regimen. He will follow-up in 1 yr or sooner if any changes or abnormalities with testing. Funmi Aldrich APRN Cardiac Electrophysiology documented in this encounter Miscellaneous Notes * Patient Instructions - Dolores Trinh RMA - 11/07/2024 2:30 PM EDT You may be contacted by mail or e-mail to participate in a patient satisfaction survey regarding your office visit today. We value your opinion and depend on your feedback to make improvements and provide you with the best possible experience while receiving high quality medical treatment. Your time in completing this survey is greatly appreciated. documented in this encounter Plan of Treatment Upcoming Encounters Date Type Department Care Team (Late st Contact Info) Description 06/19/2025 1:45 PM EST Office Visit [facility] [address] [address] Jona Chau MD [address] [place] [address] 11/07/2025 1:30 PM EDT Office Visit [facility] [address] [place] [phone] 11/07/2025 2:00 PM EDT Office Visit [facility] [address] [place] [phone] Funmi Aldrich APRN [address] [place] [address] Scheduled Orders Name Type Priority Associated Diagnoses Orde r Schedule TSH REFLEX TO FT4 Lab Routine VT (ventricular tachycardia) ([facility]) Healthcare maintenance Shortness of breath 1 Occurrences starting 11/07/2024 until 11/07/2025 COMPREHENSIVE METABOLIC PANEL Lab Routine VT (ventricular tachycardia) ([facility]) Healthcare maintenance Shortness of breath 1 Occurrences starting 11/07/2024 until 11/07/2025 XR CHEST PA AND LATERAL Imaging Routine VT (ventricular tachycardia) ([facility]) Healthcare maintenance Shortness of breath 1 Occurrences starting 11/07/2024 until 11/07/2025 documented as of this encounter Goals Goal Patient Goal Type Associated Problems Recent Progress Patient-Stated? Author Blood Pressure < 140/90 Blood Pressure 130/68(11/07 2:25 PM EDT) No Temi Isabel APRN Maintain a healthy diet, exercise regularly [...] Isabel APRN documented as of this encounter Results * EC ECHOCARDIOGRAM COMPLETE W DOPPLER AND COLOR FLOW MAPPING (12/03/2024 2:12 PM EDT) AORTIC STENOSIS no PYRAMIS Ejection Fraction 45-50% PYRAMIS LV DIASTOLIC PLAX 5.53 cm PYRAMIS Anatomical Region Laterality Modality Electrocardiogra phy 12/03/2024 1:16 PM EDT Impressions 12/04/2024 3:06 PM EDT Conclusions * Left ventricular chamber dimension is normal. * Left ventricular segmental wall motion is abnormal. * The left ventricular diastolic function is indeterminate. * Left ventricular function is mildly reduced with an estimated ejection fraction of 45-50%. * Global hypokinesis of the left ventricle with marked hypokinesis of the lateral wall. * Right ventricular chamber dimension is enlarged. * Right ventricular systolic function is reduced. * Estimated pulmonary artery systolic pressure is 34 mmHg. * There is a 29mm bioprosthetic valve present in the mitral position. * The mean gradient across the prosthetic mitral valve is 6 mmHg, which is within normal limits. * There is trace transvalvular regurgitation of the prosthetic mitral valve. Narrative Procedure Note Jona Chau MD - 12/04/2024 IMPRESSION Conclusions * Left ventricular chamber dimension is normal. * Left ventricular segmental wall motion is abnormal. * The left ventricular diastolic function is indeterminate. * Left ventricular function is mildly reduced with an estimatedejection fraction of 45-50%. * Global hypokinesis of the left ventricle with marked hypokinesis ofthe lateral wall. * Right ventricular chamber dimension is enlarged. * Right ventricular systolic function is reduced. * Estimated pulmonary artery systolic pressure is 34 mmHg. * There is a 29mm bioprosthetic valve present in the mitral position. * The mean gradient across the prosthetic mitral valve is 6 mmHg, whichis within normal limits. * There is trace transvalvular regurgitation of the prosthetic mitralvalve. us Funmi Aldrich APRN IMG ECHO ORDERABLES Final Res ult documented in this encounter Visit Diagnoses Diagnosis Healthcare maintenance- Primary Routine general medical examination at a health care facility VT (ventricular tachycardia) (HCC) Paroxysmal ventricular tachycardia Shortness of breath VT (ventricular tachycardia) (HCC) Paroxysmal ventricular tachycardia Healthcare maintenance Routine general medical examination at a health care facility Shortness of breath documented in this encounter Discontinued Medications Medication Sig Discontinue Reason Start Date End Da te amiodarone (PACERONE) 200 mg Oral TabletIndications:VT (ventricular tachycardia) (HCC) Take 400 mg by mouth twice a day for 7 days, then 200 mg by mouth twice a day for 7 days and then 200 mg by mouth daily Reorder 04/12/2024 11/07/2024 documented as of this encounter Additional Health Concerns Assessment Noted Time A fall risk assessment has been complete d for the patient 11/30/2023 2:14 PM EDT documented as of this encounter Care Teams Wire Rigger Relationship Specialty Start Date End Date Rene Caruso MD [address] [place] [address] [address] [place] [address] PCP - General Family Medicine 10/05/23 documented as of this encounter
--- OUTSIDE RECORDS SUMMARY | 2024-11-14 13:15 | XMS_ITS | Encounter Summary ---
Author Organization [facility] Address [address] [place] [address] Care Team Providers Care Webmethods Consultant Name Role Phone Rene Caruso MD Primary Care Provider [phone] [phone] Reason for Referral * Nuclear Medicine (Routine) - Authorized Specialty Diagnoses / Procedures Referred By Sharri ladnrum Referred To Contact Orthopedic Surgery Diagnoses Status post total hip replacement, right Procedures NM BONE SCAN WHOLE BODY René Nicholas PA-C [address] [place] [phone] Phone: tel: fax: [place] [address] Phone: tel: fax: Referral ID Status Reason Start Date Expiration Date V isits Requested Visits Authorized [id number] Authorized 11/14/2024 11/14/2026 5 5 Reason for Visit * Reason Comments Follow-up Encounter Details Date Type Department Care Team (Late st Contact Info) Description 11/14/2024 1:15 [place] [address] René Nicholas PA-C [address] [place] [phone] Status post total hip replacement, right (Primary Dx) Social History Tobacco Use Types Packs/Day Years Used Date Smoking Tobacco: Former Cigarettes 1.5 15 0 07/10/1984 - 07/10/1999 Smokeless Tobacco: Never Alcohol Use Standard Drinks/Week Comments Yes 12 (1 standard drink = 0.6 oz pu re alcohol) couple beers daily [facility] Utilities Answer Date Recorded In the [...] Date Recorded PHQ-2 Total Score 0 10/01/2023 [facility] [place] of Occupat ional Health - Occupational Stress [...] 10/31/2019 Lack of Transportation (Non-Medical) No 10/31/2019 [facility] IP Transportation Answer D ate Recorded [...] documented in this encounter Progress Notes * René Nicholas PA-C - 11/14/2024 1:15 PM EDT Images from the original note were not included. Name: Amos Graham Age: 68 y.o. Sex : male : 1955 René Nicholas PA-C Date of Visit: 11/14/24 CHIEF COMPLAINT: Chief Complaint Patient presents with ??? Right Hip - Follow-up Amos Graham is a 68 y.o. male who comes in today for lateral right hip pain. He had a SHRADDHA done 10 months ago. He states that he began with the pain after surgery once his oxycodone prescription ran out and he was kicked out of his chronic pain program. He states that he has been using Asprin and motrin with no relief. He is unable to walk long distances or sleep without pain. He describes the pain as an ache located near the end of where his implant is in the femur. He notes he has bilateral sciatic pain that appeared after surgery. He notes he is seeing a doctor in [place] for a possible nerve stimulator. PHYSICAL EXAMINATION: General: Well-appearing, pleasant, appropriate affect, no distress, alert and oriented x3. Neuro: Normal neurosensory response to touch. Cardiovascular: No signs of edema. Lymphatic: No signs of lymphangitis. Skin: Intact, warm and dry. Gait: Walks with a nonantalgic gait. Musculoskeletal: Right Hip Examination: Inspection: There is a well-healed surgical incision without signs of infection. Leg length is appropriate. Palpation: Nontender to palpation Range of Motion: Full active and passive range of motion of the hip without reproducible pain in the groin or lateral hip. Strength:Strength with flexion and abduction is 5/5. Special Tests: Negative straight leg raise against resistance. Skin: There are no rashes, ulcerations or lesions. Gait: Normal gait pattern with the use of a cane. Impression: Encounter Diagnosis Name Primary? Status post total hip replacement, right Yes Plan: Will order a bone scan to evaluate loosening of the prosthetic. Radiology: X-rays obtained and reviewed in office: Views 2 views including AP pelvis and lateral Location Right hip Impression there is excellent alignment of the prosthesis with no evidence of any periprosthetic fractures or loosening. No polyethylene wear. documented in this encounter Plan of Treatment Upcoming Encounters Date Type Department Care Team (Late st Contact Info) Description 06/19/2025 1:45 PM EST Office Visit [facility] [address] Jona Chau MD [address] [place] [address] 11/07/2025 1:30 PM EDT Office Visit [facility] [address] [place] [phone] 11/07/2025 2:00 PM EDT Office Visit [facility] [address] [place] [phone] Funmi Aldrich APRN [address] [place] [address] documented as of this encounter Goals Goal [...] documented as of this encounter Results * NM BONE SCAN WHOLE BODY (12/03/2024 12:45 PM EDT) Anatomical Region Laterality Modality Nuclear Medicine 12/03/2024 12:4 5 PM EDT Impressions 12/03/2024 1:58 PM EDT No scintigraphic findings characteristic of right hip prosthetic loosening or stress reaction. Please see above detailed report. - Note: Radiology results need to be interpreted within a comprehensive clinical context. If you have questions about the radiology report, please contact the office of the ordering clinician. Narrative 12/03/2024 1:58 PM EDT WHOLE BODY BONE SCAN, 12/03/2024 12:45 PM CLINICAL HISTORY: Z96.641-Presence of right artificial hip [id number]-[id number]-31-CM. COMPARISON: No comparison bone scan imaging studies. PROCEDURE COMMENTS: 28.3 mCi of [id number]. Whole body bone scanning per protocol. FINDINGS: Prior right shoulder arthroplasty. Degenerative degenerative uptake visualized involving both shoulders, sternoclavicular joints and wrists. Prior left knee arthroplasty. No scintigraphic evidence of prosthetic loosening or stress reaction. Prior total right hip arthroplasty. No scintigraphic evidence of prosthetic loosening or stress reaction. Degenerative uptake of the right knee, left midfoot and right great toe. Multilevel degenerative discogenic activity of the entire thoracic and lumbar spine region. Moderate left mid lumbar vertebral activity. If the patient has intractable lumbar pain or radicular symptoms, consider follow-up MR imaging. Procedure Note Vinnie Gandhi DO - 12/03/2024 WHOLE BODY BONE SCAN, 12/03/2024 12:45 PM CLINICAL HISTORY: Z96.641-Presence of right artificial [id number]-40-CM. COMPARISON: No comparison bone scan imaging studies. PROCEDURE COMMENTS: 28.3 mCi of [id number]. Whole body bone scanningper protocol. FINDINGS: Prior right shoulder arthroplasty. Degenerative degenerative uptakevisualized involving both shoulders, sternoclavicular joints and wrists. Prior leftknee arthroplasty. No scintigraphic evidence of prosthetic loosening orstress reaction. Prior total right hip arthroplasty. No scintigraphic evidenceof prosthetic loosening or stress reaction. Degenerative uptake of the rightknee, left midfoot and right great toe. Multilevel degenerative discogenic activity of the entire thoracic andlumbar spine region. Moderate left mid lumbar vertebral activity. If the patienthas intractable lumbar pain or radicular symptoms, consider follow-up MRimaging. IMPRESSION: No scintigraphic findings characteristic of right hip prosthetic loosening or stress reaction. Please see above detailed report. - Note: Radiology results need to be interpreted within a comprehensiveclinical context. If you have questions about the radiology report, please contactthe office of the ordering clinician. us René KUHN NM ORDERABLES Final Res ult * XR HIP RIGHT AP LATERAL W AP PELVIS (11/14/2024 1:11 PM EDT) Narrative Vik Palomares - 11/14/2024 1:11 PM EDT Please see physician's note from office encounter for x-ray imaging result us René KUHN [facility]NO[facility] ORDE RABLES Final Result documented in this encounter Visit Diagnoses Diagnosis Status post total hip replacement, right- Primary Status post total hip replacement, right Status post total hip replacement, right documented in this encounter Additional Health Concerns Assessment Noted Time A fall risk assessment has been complete d for the patient 11/30/2023 2:14 PM EDT documented as of this encounter Care Teams Webmethods Consultant Relationship Specialty Start Date End Date Rene Caruso MD [facility] [address] [place] [phone] PCP - General Family Medicine 10/05/23 documented as of this encounter
--- OUTSIDE RECORDS SUMMARY | 2024-11-14 13:30 | XMS_ITS | Encounter Summary ---
Author Organization [facility] Address [address] [place] [address] Care Team Providers Care Advertising Writer Name Role Phone Rene Caruso MD Primary Care Provider [phone] [phone] Encounter Details Date Type Department Care Team (Latest Contact Info) Description 11/14/2024 1:30 PM [place] [address] René Nicholas PA-C [address] [place], [place] [phone] Status post total hip replacement, right Social History Tobacco Use Types Packs/Day Years Used Date Smoking Tobacco: Former Cigarettes 1.5 15 0 07/10/1984 - 07/10/1999 Smokeless Tobacco: Never Alcohol Use Standard Drinks/Week Comments Yes 12 (1 standard drink = 0.6 oz pu re alcohol) couple beers daily [facility] Utilities Answer Date Recorded In the past 12 months has [employer], gas, oil, or water [employer] threatened to shut off services in your home? No 10/01/2023 Overall Financial Resource Strain (CARDIA) Answe r Date Recorded How hard is it for you to pa y for the very basics like food, housing, medical care, and heating? Not hard at all 10/01/2023 PHQ-2 Answer Date Recorded PHQ-2 Total Score 0 10/01/2023 [facility] [place] of Occupat ional Health - Occupational Stress [...] 10/31/2019 Lack of Transportation (Non-Medical) No 10/31/2019 [facility] IP Transportation Answer D ate Recorded In [...] Entry Date Author No 08/11/2020 1:05 PM EST Jinny Penny LINDEN farnsworth documented in this encounter Plan of Treatment Upcoming Encounters Date Type Department Care Team (Late st Contact Info) Description 06/19/2025 1:45 PM EST Office Visit [facility] [address] [address] Jona Chau MD [address] [place] [address] 11/07/2025 1:30 PM EDT Office Visit [facility] [address] [place] [phone] 11/07/2025 2:00 PM EDT Office Visit [facility] [address] [place] [phone] Funmi Aldrich APRN [address] [place] [address] [phone] documented as of this encounter Goals Goal [...] Procedure Name Priority Date/Time Associated Diagnosis Comments XR HIP RIGHT AP LATERAL W AP PELVIS Routine 11/14/2024 1:11 PM EDT Status post total hip replacement, right documented in this encounter Results * XR HIP RIGHT AP LATERAL W AP PELVIS (11/14/2024 1:11 PM EDT) Narrative [facility] - 11/14/2024 1:11 PM EDT Please see physician's note from office encounter for x-ray imaging result us René Nicholas PA-C [facility] YEYO ENNIS Final Result documented in this encounter Visit Diagnoses Diagnosis Status post total hip replacement, right documented in this encounter Additional Health Concerns Assessment Noted Time A fall risk assessment has been complete d for the patient 11/30/2023 2:14 PM EDT documented as of this encounter Care Teams Advertising Writer Relationship Specialty Start Date End Date Rene Caruso MD [facility] [address] [place] [phone] PCP - General Family Medicine 10/05/23 documented as of this encounter
--- OUTSIDE RECORDS SUMMARY | 2024-12-03 09:15 | XMS_ITS | Encounter Summary ---
Author Organization [place] [address] Care Team Providers Care Real Estate Director Name Role Phone Rene Caruso MD Primary Care Provider +1 [phone] Reason for Referral * Nuclear Medicine (Routine) - Authorized Specialty Diagnoses / Procedures Referred By Contac t Referred To Contact Orthopedic Surgery Diagnoses Status post total hip replacement, right Procedures NM BONE SCAN WHOLE BODY René Nicholas PA-C [address] [place] [phone] Phone: tel: fax: [place] [address] Phone: tel: fax: Referral ID Status Reason Start Date Expiration Date V isits Requested Visits Authorized [id number] Authorized 11/14/2024 11/14/2026 5 5 Reason for Visit * Nuclear Medicine (Routine) - Authorized Specialty Diagnoses / Procedures Referred By Contac t Referred To Contact Orthopedic Surgery Diagnoses Status post total hip replacement, right Procedures NM BONE SCAN WHOLE BODY René Nicholas PA-C [address] [place] [phone] Phone: tel: fax: [address] [address] Phone: tel: fax: Referral ID Status Reason Start Date Expiration Date V isits Requested Visits Authorized [id number] Authorized 11/14/2024 11/14/2026 5 5 Encounter Details Date Type Department Care Team (Latest Contact Info) Description 12/03/2024 9:15 AM EDT - 12/03/2024 11:59 PM EDT Hospital Encounter [facility] NUC MED [address] [place] [address] René Nicholas PA-C [address] [place] [phone] Status post total hip replacement, right Discharge Disposition: Home or Self Care Social History Tobacco Use Types Packs/Day Years Used Date Smoking Tobacco: Former Cigarettes 1.5 15 0 07/10/1984 - 07/10/1999 Smokeless Tobacco: Never Alcohol Use Standard Drinks/Week Comments Yes 12 (1 standard drink = 0.6 oz pu re alcohol) couple beers daily [facility] Utilities Answer Date Recorded In the past 12 months has e [employer], gas, oil, or water [employer] threatened to shut off services in your home? No 10/01/2023 Overall Financial Resource Strain (CARDIA) Answe r Date Recorded How hard is it for you to pa y for the very basics like food, housing, medical care, and heating? Not hard at all 10/01/2023 PHQ-2 Answer Date Recorded PHQ-2 Total Score 0 10/01/2023 [facility] of Occupat ional Health - Occupational Stress [...] 10/31/2019 Lack of Transportation (Non-Medical) No 10/31/[address] [facility] IP Transportation Answer D ate Recorded In [...] PM EST Office Visit [facility] [address] [place] [address] Jona Chau MD [address] [place] [address] [place] [address] 11/07/2025 1:30 PM EDT Office Visit [facility] [address] [place] [phone] 11/07/2025 2:00 PM EDT Office Visit [facility] [address] [place] [phone] Funmi Aldrich APRN [address] [place] [address] documented as of this encounter [...] CLINICAL HISTORY: Z96.641-Presence of right artificial hip ermnr-BDS-74-CM. COMPARISON: No comparison bone scan imaging studies. PROCEDURE COMMENTS: 28.3 mCi of [id number]. Whole body bone scanning per protocol. FINDINGS: [...] PM CLINICAL HISTORY: Z96.641-Presence of right artificial qvknpiiu-YIC-60-CM. COMPARISON: No comparison bone scan imaging studies. PROCEDURE COMMENTS: 28.3 mCi of [id number]. Whole body bone scanningper protocol. FINDINGS: Prior [...] documented as of this encounter Care Teams Real Estate Director Relationship Specialty Start Date End Date Rene Caruso MD [facility] [address] [place] [address] PCP - General Family Medicine 10/05/23 documented as of this encounter
--- OUTSIDE RECORDS SUMMARY | 2024-12-03 09:15 | XMS_ITS | Encounter Summary ---
Author Organization [place] [address] Care Team Providers Care Job Cost Estimator Name Role Phone Rene Caruso MD Primary Care Provider [phone] Reason for Visit * Nuclear Medicine (Routine) - Authorized Specialty Diagnoses / Procedures Referred By Sharri landrum Referred To Contact Orthopedic Surgery Diagnoses Status post total hip replacement, right Procedures NM BONE SCAN WHOLE BODY René Nicholas PA-C [address] [place] [phone] Phone: tel: fax: [address] [address] Phone: tel: fax: Referral ID Status Reason Start Date Expiration Date V isits Requested Visits Authorized [id number] Authorized 11/14/2024 11/14/2026 5 5 Encounter Details Date Type Department Care Team (Latest Contact Info) Description 12/03/2024 9:15 AM EDT - 12/03/2024 11:59 PM EDT Hospital Encounter [facility] [address] [facility] [facility] [place] [address] René Nicholas PA-C [address] [place] [phone] Discharge Disposition: Home or Self Care Social History Tobacco Use Types Packs/Day Years Used Date Smoking Tobacco: Former Cigarettes 1.5 15 0 07/10/1984 - 07/10/1999 Smokeless Tobacco: Never Alcohol Use Standard Drinks/Week Comments Yes 12 (1 standard drink = 0.6 oz pu re alcohol) couple beers daily [facility] Utilities Answer Date Recorded In the past [...] Date Recorded PHQ-2 Total Score 0 10/01/2023 [facility] [place] of Occupat ional Health - Occupational Stress [...] of Transportation (Non-Medical) No [facility]/31/2019 [facility] IP Transportation Answer D ate Recorded [...] 1:45 PM EST Office Visit [facility] [address] [address] Jona Chau MD [address] [place] [address] 11/07/2025 1:30 PM EDT Office Visit [facility] [address] [place] [phone] 11/07/2025 2:00 PM EDT Office Visit [facility] [address] [place] [phone] Funmi Aldrich APRN [address] [place] [address] [phone] documented as of this encounter Goals Goal [...] documented as of this encounter Care Teams Job Cost Estimator Relationship Specialty Start Date End Date Rene Caruso MD [address] [place] [address] [address] [facility] [place] [address] PCP - General Family Medicine 10/05/23 documented as of this encounter
--- OUTSIDE RECORDS SUMMARY | 2024-12-03 09:15 | XMS_ITS | Encounter Summary ---
Author Organization [place] [address] Care Team Providers Care Assistant Housekeeping Manager Name Role Phone Rene Caruso MD Primary Care Provider [phone] Reason for Referral * Echo (Routine) - Closed Specialty Diagnoses / Procedures Referred By Sharri landrum Referred To Contact Radiology Diagnoses [place] (ventricular tachycardia) (HCC) Healthcare maintenance Shortness of breath Procedures EC ECHOCARDIOGRAM COMPLETE W DOPPLER AND COLOR FLOW MAPPING Funmi Aldrich APRN [address] [place] [address] Phone: tel: fax: Referral ID Status Reason Start Date Expiration Date Visits Re quested Visits Authorized [id number] Closed 11/07/2024 11/07/2026 1 1 Reason for Visit * Echo (Routine) - Closed Specialty Diagnoses / Procedures Referred By Sharri landrum Referred To Contact Radiology Diagnoses [place] (ventricular tachycardia) (HCC) Healthcare maintenance Shortness of breath Procedures EC ECHOCARDIOGRAM COMPLETE W DOPPLER AND COLOR FLOW MAPPING Funmi Aldrich APRN [address] [place] [address] Phone: tel: fax: Referral ID Status Reason Start Date Expiration Date Visits Re quested Visits Authorized [id number] Closed 11/07/2024 11/07/2026 1 1 Encounter Details Date Type Department Care Team (Latest Contact Info) Description 12/03/2024 9:15 AM EDT - 12/03/2024 11:59 PM EDT Hospital Encounter [facility] ECHO [address] [place] [address] Funmi Aldrich, MARCELO [address] [place] [address] [place] (ventricular tachycardia) (HCC); Healthcare maintenance; Shortness of breath Discharge Disposition: Home or Self Care Social History Tobacco Use Types Packs/Day Years Used Date Smoking Tobacco: Former Cigarettes 1.5 15 0 07/10/1984 - 07/10/1999 Smokeless Tobacco: Never Alcohol Use Standard Drinks/Week Comments Yes 12 (1 standard drink = 0.6 oz pu re alcohol) couple beers daily [facility] Utilities Answer Date Recorded In the past 12 months has [employer], gas, oil, or water [employer] threatened to shut off services in your home? No 10/01/2023 Overall Financial Resource Strain (CARDIA) Answe r Date Recorded How hard is it for you to pa y for the very basics like food, housing, medical care, and heating? Not hard at all 10/01/2023 PHQ-2 Answer Date Recorded PHQ-2 Total Score 0 10/01/2023 [facility] [place] of Occupat ional Health - Occupational Stress [...] Lack of Transportation (Non-Medical) No 10/31/2019 [facility] IP Transportation Answer D ate Recorded [...] 1:45 PM EST Office Visit [facility] [address] [address] Jona Chau MD [address] [place] [address] 11/07/2025 1:30 PM EDT Office Visit [facility] [address] [place] [phone] 11/07/2025 2:00 PM EDT Office Visit [facility] [address] [place] [phone] Funmi Aldrich APRN [address] [place] [address] [phone] documented as of this encounter Goals Goal [...] documented as of this encounter Care Teams Assistant Housekeeping Manager Relationship Specialty Start Date End Date Rene Caruso MD [address] [facility] [address] [place] [phone] PCP - General Family Medicine 10/05/23 documented as of this encounter
--- OUTSIDE RECORDS SUMMARY | 2024-12-05 14:00 | XMS_ITS | Encounter Summary ---
Author Organization [facility] Address [address] [place] [address] Care Team Providers Care Gang Tailer Name Role Phone Rene Caruso MD Primary Care Provider [phone] Reason for Visit * Reason Comments Follow-up Encounter Details Date Type Department Care Team (Late st Contact Info) Description 12/05/2024 2:00 PM EDT Office Visit [place] [phone] René Brown MD [address] [place] [phone] Status post total hip replacement, right (Primary Dx) Social History Tobacco Use Types Packs/Day Years Used Date Smoking Tobacco: Former Cigarettes 1.5 15 0 07/10/1984 - 07/10/1999 Smokeless Tobacco: Never Alcohol Use Standard Drinks/Week Comments Yes 12 (1 standard drink = 0.6 oz pu re alcohol) couple beers daily [facility] Utilities Answer Date Recorded In the past 12 months has [employer], gas, oil, or water [employer] threatened to shut off services in your home? No 10/01/2023 Overall Financial Resource Strain (CARDIA) Answe r Date Recorded How hard is it for you to pa y for the very basics like food, housing, medical care, and heating? Not hard at all 10/01/2023 PHQ-2 Answer Date Recorded PHQ-2 Total Score 0 10/01/2023 [facility] [place] of Occupat ional Health - Occupational Stress [...] Transportation (Non-Medical) No 10/31/2019 [facility] IP Transportation Answer D ate [...] 1:45 PM EST Office Visit [facility] [address] Jona Chau MD [address] [place] [address] 11/07/2025 1:30 PM EDT Office Visit [facility] [address] [place] [address] [place] [phone] 11/07/2025 2:00 PM EDT Office Visit [facility] [address] [place] [phone] Funmi Aldrich APRN [address] [place] [address] documented as of this encounter Goals Goal [...] documented as of this encounter Care Teams Gang Tailer Relationship Specialty Start Date End Date Rene Caruso MD [address] [place] [address] [address] [place] [phone] PCP - General Family Medicine 10/05/23 documented as of this encounter
--- OUTSIDE RECORDS SUMMARY | 2024-12-16 14:52 | XMS_ITS | Encounter Summary ---
Author Organization [facility] [place] [address] Care Team Providers Care Treating Plant Pumper Name Role Phone Rene Caruso MD Primary Care Provider [phone] Encounter Details Date Type Department Care Team (Latest Contact Info) Description 12/05/2024 Results Follow-Up [facility] [address] [facility] [address] [place] [address] Funmi Aldrich APRN [address] [place], [place] [phone] EC ECHOCARDIOGRAM COMPLETE W DOPPLER AND COLOR FLOW MAPPING Social History Tobacco Use Types Packs/Day Years Used Date Smoking Tobacco: Former Cigarettes 1.5 15 0 07/10/1984 - 07/10/1999 Smokeless Tobacco: Never Alcohol Use Standard Drinks/Week Comments Yes 12 (1 standard drink = 0.6 oz pu re alcohol) couple beers daily [facility] Utilities Answer Date Recorded In the past 12 months has [employer], gas, oil, or water [employer] threatened to shut off services in your home? No 10/01/2023 Overall Financial Resource Strain (CARDIA) Answe r Date Recorded How hard is it for you to pa y for the very basics like food, housing, medical care, and heating? Not hard at all 10/01/2023 PHQ-2 Answer Date Recorded PHQ-2 Total Score 0 10/01/2023 [facility] [place] of Occupat ional Health - Occupational Stress [...] 10/31/2019 Lack of Transportation (Non-Medical) No 10/31/2019 [facility] IP Transportation Answer D ate Recorded In [...] Penny Youngblood MA documented in this encounter Plan of Treatment Upcoming Encounters Date Type Department Care Team (Late st Contact Info) Description 06/19/2025 1:45 PM EST Office Visit [facility] [address] [address] Jona Chau MD [address] [place] [address] 11/07/2025 1:30 PM EDT Office Visit [facility] [address] [place] [phone] 11/07/2025 2:00 PM EDT Office Visit [facility] [address] [place] [phone] Funmi Aldrich APRN [address] [place] [phone] documented as of this encounter Goals Goal [...] documented as of this encounter Visit Diagnoses Not on filedocumented in this encounter Additional Health Concerns Assessment Noted Time A fall risk assessment has been complete d for the patient 11/30/2023 2:14 PM EDT documented as of this encounter Care Teams Treating Plant Pumper Relationship Specialty Start Date End Date Rene Caruso MD [facility] [address] [place] [address] PCP - General Family Medicine 10/05/23 documented as of this encounter
--- OUTSIDE RECORDS SUMMARY | 2024-12-16 14:52 | XMS_ITS | Clinical Summary ---
Author Organization [facility] Address [facility] [place] [address] Care Team Providers Care Machinery Engineer Name Role Phone Pcp, Leeann Primary Care Provider [phone] Source Comments This information has been disclosed to you from confidential records protectedfrom disclosure by state law. You shall make no further disclosure of thisinformation without the specific, written, and informed release of theindividual to whom it pertains, or as otherwise permitted by law. A generalauthorization for the release of medical or other information is not sufficientfor the purposes of therelease of HIV test results or diagnoses. [id number] Allergies Active Allergy Reactions Criticality Noted Date Comments Codeine Other (See Comments) Low 06/15/2015 Other reaction(s): Other (See Comments) Patient states that the medication causes him to become constipated Patient states that the medication causes him to become constipated Milk Nausea Only Low 10/15/2019 Medications glucosamine-cho ndroitin 500-400 mg tablet Take 1 tablet by mouth 3 times a day. Active multivitamin tablet Take 1 tablet by mouth daily. Active oxyCODONE-aceta minophen (PERCOCET) 7.5-325 mg per tablet Take 1 tablet by mouth every 6 hours as needed for Pain. Active pregabalin (LYRICA) 50 MG capsule Take 1 capsule (50 mg total) by mouth 2 times a day. Active torsemide (DEMADEX) 20 MG tablet Take 1 tablet (20 mg total) by mouth daily. Active atorvastatin (LIPITOR) 40 MG tablet Take 1 tablet (40 mg total) by mouth daily. Active aspirin 81 MG EC tablet Take 1 tablet (81 mg total) by mouth daily. Active metoprolol tartrate (LOPRESSOR) 100 MG tablet Take 1 tablet (100 mg total) by mouth 2 times a day. Active apixaban (ELIQUIS) 5 mg Tab Take 1 tablet (5 mg total) by mouth 2 times a day. Active losartan (COZAAR) 25 MG tablet Take 1 tablet (25 mg total) by mouth daily. Active Active Problems Problem Noted Date Diagnosed Date PVD (peripheral vascular disease) 06/20/2023 Social History Tobacco Use Types Packs/Day Years Used Date Smoking Tobacco: Former Cigarettes Smokeless Tobacco: Never Alcohol Use Standard Drinks/Week Comments Yes 0 (1 standard drink = 0.6 oz pur e alcohol) Sex and Gender Information Value Date Recorded Sex Assigned at Not on file Legal Sex Male 7:10 PM EST Gender Identity Not on file Sexual Orientation Not on file Last Filed Vital Signs Vital Sign Reading Time Taken Comments Blood Pressure 140/84 06/20/2023 1:18 PM EST Pulse - - Temperature - - Respiratory Rate - - Oxygen Saturation - - Inhaled Oxygen Concentration - - Weight 120 kg (264 lb 8 oz) 06/20/2023 1:[address] Height 185.4 cm (6' 1 ) 06/20/2023 1:18 PM EST Body Mass Index 34.9 06/20/2023 1:18 PM EST Plan of Treatment Health Maintenance Due Date Last Done Comments Abnormal Colonoscopy Follow Up 1955 Diabetes Screening 1955 Hepatitis C Screening (MyChart) 1955 Alcohol Misuse Screening 1974 Depression Screening 1974 Immunization: DTaP/Tdap/Td (1 - Tdap) 12/08/1975 Cologuard (FIT-DNA) 2001 Colonoscopy 2001 Colorectal Cancer Screening (MyChart) 2001 Stool Testing (gFOBT) 2001 Immunization: Pneumococcal ( 1 of 1 - PCV) 2006 Lung Cancer Screening 2006 Abdominal Aortic Aneurysm (A AA) Screening 2021 Immunization: COVID-19 ( season) 2024 06/15/2021, 11/04/2020, 10/14/2020 Immunization: Influenza (MyC mckeon) (Season Ended) 2025 10/15/2019, 07/07/2015 Immunization: RSV (Adult) (1 - 1-dose 75+ series) 12/08/2031 Immunization: Zoster Completed 09/24/2020, 07/24/19 21 Insurance [employer] MED[employer]ARE ADVANTAGE Care Teams Machinery Engineer Relationship Specialty Start Date End Date Pcp, [address] [place], [place] [phone] PCP - General 12/25/23
--- OUTSIDE RECORDS SUMMARY | 2024-12-16 14:52 | XMS_ITS | Encounter Summary ---
Author Organization [place] [address] Care Team Providers Care Oenologist Name Role Phone Jeanette Sushil Mick Primary Care Provider [phone] Temi Isabel APRN Primary Care Provider [phone] Reena Benson RN Unavailable Unavailable Helder Yung MD Primary Care Provider [phone] Temi Isabel APRN Primary Care Provider [phone] Gaye Stern MD Primary Care Provi sonal Unavailable Rene Caruso MD Primary Care Provider [phone] Encounter Details Date Type Department Care Team (Late st Contact Info) Description 11/06/2008 Orders Only [facility] [place] [address] [place] [address] Perico Sequeira MD [address] [place] [phone] Social History Tobacco Use Types Packs/Day Years Used Date Smoking Tobacco: Never Assessed Sex and Gender Information Value Date Recorded Sex Assigned at Not on file Legal Sex Male 11:59 AM EDT Gender Identity Not on file Sexual Orientation Not on file documented as of this encounter Plan of Treatment Upcoming Encounters Date Type Department Care Team (Late st Contact Info) Description 06/19/2025 1:45 PM EST Office Visit [facility] [place] [address] [place] [address] Jona Chau MD [address] [facility] [place] [address] 11/07/2025 1:30 PM EDT Office Visit [facility] [address] [facility] [address] [place] [address] 11/07/2025 2:00 PM EDT Office Visit [facility] [address] [facility] [address] [place] [address] Funmi Aldrich, MARCELO [address] [place], [place] [phone] documented as of this encounter Procedures Procedure Name Priority Date/Time Associated Diagnosis Comments ECHO - HISTORICAL Routine 11/06/2008 12: 00 AM EDT documented in this encounter Results * ECHO - HISTORICAL (11/06/2008 12:00 AM EDT) Anatomical Region Laterality Modality Other 11/06/2008 Narrative 07/12/2011 3:42 AM EST NOTICE: This report was electronically copied on 08/24/2011 from historical data generated by a practice prior to that practice using [facility] for Medical Records. Performing Provider: Perico Sequeira M.D., F.A.C.C. Perico Sequeira MD IMG ECHO ORDERABLES Final Re sult documented in this encounter Visit Diagnoses Not on filedocumented in this encounter Additional Health Concerns Infection Onset Date Last Indicated Resolved Time R/O COVID-19 10/12/2019 10/12/2019 10/14/2019 10:0 1 PM EDT R/O Influenza 10/12/2019 10/12/2019 10/12/2019 3:5 2 PM EDT documented as of this encounter Care Teams Oenologist Relationship Specialty Start Date End Date Sushil Reid [address] [facility] [address] [place] [address] PCP - General 05/05/10 02/26/17 Temi Isabel APRN [address] [facility] [place] [phone] PCP - General Nurse Practitioner-Family 02/27/1707/10 Helder Yung MD [address] [place] [address] [place] [address] PCP - General Family Medicine 07/23/20 08/10/20 Temi Isabel APRN [address] [place] [address] [place] [phone] PCP - General Nurse Practitioner-[facility] 08/11/2002/07 aGye Stern MD [address] [place] [address] [place] [address] PCP - General Family Medicine 04/26/22 10/03/23 Rene Caruso MD [facility] [address] [place] [phone] PCP - General Family Medicine 10/05/23 Reena Benson, RN Portfolio Specialist Registered Nurse 10/31/19 12/31/19 documented as of this encounter
--- OUTSIDE RECORDS SUMMARY | 2024-12-16 14:52 | XMS_ITS | Clinical Summary ---
Author Organization [facility] Address [address] [place] [address] Care Team Providers Care Loft Worker Head Name Role Phone Scottie Reid MD Primary Care Provider [phone] Immunizations Immunization Administration Dates Next Due Influenza, injectable, quadrivalent, preservativ e free 07/07/2015 Family History Medical History Relation Name Comments Arthritis Mother Cardiac disorder Mother Relation Name Status Comments Mother Social History Tobacco Use Types Packs/Day Years Used Date Smoking Tobacco: Never Sex and Gender Information Value Date Recorded Sex Assigned at Not on file Legal Sex Male 7:09 PM EDT Gender Identity Not on file Sexual Orientation Not on file Last Filed Vital Signs Vital Sign Reading Time Taken Comments Blood Pressure 131/73 02/05/2019 1:48 PM EDT Pulse 82 02/05/2019 1:48 PM EDT Temperature 36.8 C (98.2 F) 02/05/2019 1:48 PM EDT Respiratory Rate 20 02/05/2019 1:48 PM EDT Oxygen Saturation - - Inhaled Oxygen Concentration - - Weight 126 kg (278 lb) 02/05/2019 1:48 PM EDT Height 182.9 cm (6') 02/05/2019 1:48 PM EDT Body Mass Index 37.7 02/05/2019 1:48 PM EDT Plan of Treatment Health Maintenance Due Date Last Done Comments [facility]-Depression Screening 1955 [facility]-Infant/Child/Adol SDOH Screenings 1955 [facility]- SDOH Screenings 1974 [facility]-Adult SDOH Screenings 1974 [facility]-DTaP,Tdap,and Td Vaccine s (1 - Tdap) 12/08/1975 CT Colonography 2001 Colonoscopy 2001 FIT-DNA 2001 FIT 2001 FOBT 2001 Sigmoidoscopy 2001 [facility]-Colorectal Cancer Screening 2001 [facility]-Pneumococcal Vaccine: 50 + Years (1 of 1 - PCV) 2006 [facility]-Zoster Vaccines (1 of 2) 2006 [id number] Vaccine (1 - 20 24-25 season) 2024 [facility]-Influenza Vaccine (Seaso n Ended) 2025 07/07/2015 [facility]-RSV Vaccine: 60+ Years o r (1 - 1-dose 75+ series) 12/08/2031 HPV Vaccines Aged Out No longer eligi ble based on patient's age to complete this topic [facility]-HIB Vaccines Aged Out No longer e ligible based on patient's age to complete this topic [facility]-Hepatitis A Vaccines Aged Out No longer eligible based on patient's age to complete this topic [facility]-IPV Vaccines Aged Out No longer e ligible based on patient's age to complete this topic [facility]-Rotavirus Vaccines Aged Out No lo nger eligible based on patient's age to complete this topic Care Teams Loft Worker Head Relationship Specialty Start Date End Date Scottie Reid MD [address] [place] [address] PCP - General 11/20/20
--- OUTSIDE RECORDS SUMMARY | 2024-12-16 14:52 | XMS_ITS | Encounter Summary ---
Author Organization [place] [address] Care Team Providers Care Monument Installer Name Role Phone Rene Caruso MD Primary Care Provider [phone] Reason for Visit * Reason Onset Date Comments Other 11/11/2024 Encounter Details Date Type Department Care Team (Late st Contact Info) Description 11/11/2024 Telephone Structural Hrt/Valve [address] [facility] [address] [place] [id number] Jacque Ahn RN Other Social History Tobacco Use Types Packs/Day Years Used Date Smoking Tobacco: Former Cigarettes 1.5 15 0 07/10/1984 - 07/10/1999 Smokeless Tobacco: Never Alcohol Use Standard Drinks/Week Comments Yes 12 (1 standard drink = 0.6 oz pu re alcohol) couple beers daily [facility] Utilities Answer Date Recorded In the past 12 months has [employer], gas, oil, or water company threatened to shut off services in your home? No 10/01/2023 Overall Financial Resource Strain (CARDIA) Answe r Date Recorded How hard is it for you to pa y for the very basics like food, housing, medical care, and heating? Not hard at all 10/01/2023 PHQ-2 Answer Date Recorded PHQ-2 Total Score 0 10/01/2023 [facility] [place] of Occupat ional Health - Occupational Stress [...] 10/31/2019 Lack of Transportation (Non-Medical) No 10/31/2019 [facility] IP Transportation Answer D ate Recorded In [...] Date Author No 08/11/2020 1:05 PM EST Penny Stearns MA documented in this encounter Miscellaneous Notes * Telephone Encounter - Jacque Ahn RN - 11/11/2024 10:11 AM EDT Summary: Bob Pt saw Funmi MARIN. He has an upcoming appt for a back nerve stimulator. He wants to have that worked up prior to proceeding with Watchman consult. Will need to see Dr. Cotton. Pt said he will call when ready. [id number] Stroke Risk Points: 4 Values used to calculate this score: Points Metrics 1 Has Congestive Heart Failure: Yes 1 Has Hypertension: Yes 1 Age: 68 0 Has Diabetes: No 0 Had Stroke: No Had TIA: No Had Thromboembolism: No 1 Has Vascular Disease: Yes 0 Clinically Relevant Sex: Male HAS-BLED Bleed Risk Score: 3 Hypertension: No Abnormal renal function: No Abnormal liver function: No Stroke history: No Prior major bleeding or predisposition to bleeding: No Labile INR: No Age >65: Yes Medication usage predisposing to bleeding: Yes Alcohol Use: Yes Feeding 10-independent 10 Bathing 5-independent 5 Grooming 5-independent 5 Dressing 10-independent 10 Bowels 10-continent 10 Bladder 10-continent 10 Toilet Use 10-independent 10 Transfer 15-independent 15 Mobility 15-independent 15 Stairs 10-independent 10 CAROLINA INDEX 100 Modified Calhoun Score Modified Calhoun Score : 0 - No symptoms. documented in this encounter Plan of Treatment Upcoming Encounters Date Type Department Care Team (Late st Contact Info) Description 06/19/2025 1:45 PM EST Office Visit [facility] [address] [place] [address] Jona Chau MD [address] [place] [address] [place] [id number] 11/07/2025 1:30 PM EDT Office Visit [facility] [address] [place] [address] [address] [place] [id number] 11/07/2025 2:00 PM EDT Office Visit [facility] [address] [facility] [address] [place] [address] Funmi Aldrich APRN [address] [place], [place] [id number] documented as of this encounter Goals Goal [...] documented as of this encounter Care Teams Monument Installer Relationship Specialty Start Date End Date Rene Caruso MD [facility] [address] [place] [address] PCP - General Family Medicine 10/05/23 documented as of this encounter
--- OUTSIDE RECORDS SUMMARY | 2024-12-16 14:52 | XMS_ITS | Encounter Summary ---
Author Organization [place] [address] Care Team Providers Care Instructor Private Name Role Phone Rene Caruso MD Primary Care Provider [phone] Encounter Details Date Type Department Care Team (Late st Contact Info) Description 11/07/2024 Orders Only [facility] [address] [facility] [address] [place] [address] Jorden Cotton MD [address] [place], [place] [phone] Vector Remote Device Social History Tobacco Use Types Packs/Day Years Used Date Smoking Tobacco: Former Cigarettes 1.5 15 0 07/10/1984 - 07/10/1999 Smokeless Tobacco: Never Alcohol Use Standard Drinks/Week Comments Yes 12 (1 standard drink = 0.6 oz pu re alcohol) couple beers daily [facility] Utilities Answer Date Recorded In the past 12 months has [employer], gas, oil, or water [employer] threatened to shut off services in your home? No 10/01/2023 Overall Financial Resource Strain (CARDIA) Answe r Date Recorded How hard is it for you to pa y for the very basics like food, housing, medical care, and heating? Not hard at all 10/01/2023 PHQ-2 Answer Date Recorded PHQ-2 Total Score 0 10/01/2023 [facility] of Occupat ional Health - Occupational Stress [...] 10/31/2019 Lack of Transportation (Non-Medical) No 10/31/2019 [facility] IP Transportation Answer D ate Recorded In [...] Penny Stearns MA documented in this encounter Plan of Treatment Upcoming Encounters Date Type Department Care Team (Late st Contact Info) Description 06/19/2025 1:45 PM EST Office Visit [facility] [address] [address] Jona Chau MD [address] [place] [address] 11/07/2025 1:30 PM EDT Office Visit [facility] [address] [place] [address] 11/07/2025 2:00 PM EDT Office Visit [facility] [address] [place] [address] Funmi Aldrich APRN [address] [place] [id number] documented as of this encounter Goals Goal [...] Procedure Name Priority Date/Time Associated Diagnosis Comments NC REM INTERROG ICPMS <30 D PHYS/QHP Routine 11/07/2024 12:00 AM EDT Vector Remote Device documented in this encounter Results * VECTOR REMOTE HEART FAILURE DEVICE (11/07/2024 12:00 AM EDT) 11/07/2024 Narrative [facility] - 11/07/2024 12:00 AM EDT Stable trend. us Jorden Cotton MD [facility] CARDIAC CATH ORDERAB LES Final Result Performing Organization Address City/State/[facility] Co de Phone Number [facility] [address] [place] [address] documented in this encounter Visit Diagnoses Diagnosis Vector Remote Device documented in this encounter Additional Health Concerns Assessment Noted Time A fall risk assessment has been complete d for the patient 11/30/2023 2:14 PM EDT documented as of this encounter Care Teams Instructor Private Relationship Specialty Start Date End Date Rene Caruso MD [address] [place] [address] [address] [place] [address] PCP - General Family Medicine 10/05/23 documented as of this encounter
--- OUTSIDE RECORDS SUMMARY | 2024-12-16 14:52 | XMS_ITS | Encounter Summary ---
Author Organization [place] [address] Care Team Providers Care Industrial Sales Engineer Name Role Phone Rene Caruso MD Primary Care Provider [phone] Encounter Details Date Type Department Care Team (Late st Contact Info) Description 12/10/2024 Orders Only [facility] [address] [facility] [address] [place] [address] Jorden Cotton MD [address] [place], [place] [phone] Vector Remote Device Social History Tobacco Use Types Packs/Day Years Used Date Smoking Tobacco: Former Cigarettes 1.5 15 0 07/10/1984 - 07/10/1999 Smokeless Tobacco: Never Alcohol Use Standard Drinks/Week Comments Yes 12 (1 standard drink = 0.6 oz pu re alcohol) couple beers daily [facility] Utilities Answer Date Recorded In the past 12 months has [employer], gas, oil, or water [employer] threatened to shut off services in your home? No 10/01/2023 Overall Financial Resource Strain (CARDIA) Answe r Date Recorded How hard is it for you to pa y for the very basics like food, housing, medical care, and heating? Not hard at all 10/01/2023 PHQ-2 Answer Date Recorded PHQ-2 Total Score 0 10/01/2023 [facility] of Occupat ional Health - Occupational Stress [...] 10/31/2019 Lack of Transportation (Non-Medical) No 10/31/2019 [facility] IP Transportation Answer D ate Recorded In [...] 1:45 PM EST Office Visit [facility] [address] [address] Jona Chau MD [address] [place] [address] 11/07/2025 1:30 PM EDT Office Visit [facility] [address] [place] [address] 11/07/2025 2:00 PM EDT Office Visit [facility] [address] [place] [address] Funmi Aldrich APRN [address] [place] [id number] documented as of this encounter Goals Goal [...] Procedure Name Priority Date/Time Associated Diagnosis Comments ND REM INTERROG ICPMS <30 D PHYS/QHP Routine 12/10/2024 12:00 AM EDT Vector Remote Device documented in this encounter Results * VECTOR REMOTE HEART FAILURE DEVICE (12/10/2024 12:00 AM EDT) 12/10/[address] [facility] - 12/10/2024 12:00 AM EDT Stable trend. us Jorden Cotton MD [facility] CARDIAC CATH ORDERAB LES Final Result Performing Organization Address City/State/[facility] Co de Phone Number [facility] [address] [place] [address] documented in this encounter Visit Diagnoses Diagnosis Vector Remote Device documented in this encounter Additional Health Concerns Assessment Noted Time A fall risk assessment has been complete d for the patient 11/30/2023 2:14 PM EDT documented as of this encounter Care Teams Industrial Sales Engineer Relationship Specialty Start Date End Date Rene Caruso MD [address] [place] [address] [address] [facility] [place] [address] PCP - General Family Medicine 10/05/23 documented as of this encounter
--- OUTSIDE RECORDS SUMMARY | 2024-12-16 14:52 | XMS_ITS | Encounter Summary ---
Author Organization [place] [address] Care Team Providers Care Straightedge Machine Operator Helper Name Role Phone Sushil Reid Mick Primary Care Provider [phone] Temi Isabel APRN Primary Care Provider [phone] Reena Benson RN Unavailable Unavailable Helder Yung MD Primary Care Provider [phone] Temi Isabel APRN Primary Care Provider [phone] Gaye Stern MD Primary Care Provi sonal Unavailable Rene Caruso MD Primary Care Provider [phone] Encounter Details Date Type Department Care Team (Late st Contact Info) Description 10/27/2009 Orders Only [facility] [address] [place] [address] Scottie Elkins MD Social History Tobacco Use Types Packs/Day Years [...] 1:45 PM EST Office [place] [address] Jona Chau MD [address] [place] [address] 11/07/2025 1:30 PM EDT Office Visit [facility] [address] [facility] [address] [place] [address] 11/07/2025 2:00 PM EDT Office Visit [facility] [address] [facility] [address] [place] [address] Funmi Aldrich APRN [address] [place] [address] documented as of this encounter Procedures Procedure Name Priority Date/Time Associated Diagnosis Comments ECHO - HISTORICAL Routine 10/27/2009 12: 00 AM EDT documented in this encounter Results * ECHO - HISTORICAL (10/27/2009 12:00 AM EDT) Anatomical Region Laterality Modality Other 10/27/2009 Narrative 07/12/2011 3:44 AM EST NOTICE: This report was electronically copied on 08/24/2011 from historical data generated by a practice prior to that practice using [facility] Home[employer] for Medical Records. Performing Provider: Scottie Elkins M.D. Scottie Elkins MD IMG ECHO ORDERABLES Final Re sult documented in this encounter Visit Diagnoses Not on filedocumented in this encounter Additional Health Concerns Infection Onset Date Last Indicated Resolved Time R/O COVID-19 10/12/2019 10/12/2019 10/14/2019 10:0 1 PM EDT R/O Influenza 10/12/2019 10/12/2019 10/12/2019 3:5 2 PM EDT documented as of this encounter Care Teams Straightedge Machine Operator Helper Relationship Specialty Start Date End Date Sushil Reid [address] [facility] [address] [place] [address] PCP - General 05/05/10 02/26/17 Temi Isabel APRN [employer] [place] [address] PCP - General Nurse Practitioner-Family 02/27/1707/10 Helder Yung MD [address] [place] [address] [place] [address] PCP - General Family Medicine 07/23/20 08/10/20 Temi Isabel APRN [address] [place] [address] [place] [address] PCP - General Nurse Practitioner-Family 08/11/2002/07 Gaye Stern MD [address] [place] [address] [place] [address] PCP - General Family Medicine 04/26/22 10/03/23 Rene Caruso MD [facility] [address] [place] [address] [place] [address] PCP - General Family Medicine 10/05/23 Reena Benson, SHA Residence Leasing Agent Registered Nurse 10/31/19 12/31/19 documented as of this encounter
--- OUTSIDE RECORDS SUMMARY | 2024-12-16 14:53 | XMS_ITS | Encounter Summary ---
Author Organization [place] [address] Care Team Providers Care Braille Typist Name Role Phone Rene Caruso MD Primary Care Provider [phone] Reason for Visit * Reason Onset Date Comments Medication Refill 11/25/2024 metoprolol suc cinate ER (TOPROL-XL) 100 mg Oral Tablet Sustained Release 24 hr Encounter Details Date Type Department Care Team (Late st Contact Info) Description 11/25/2024 Telephone [facility] [address] [facility] [address] [place] [address] Jorden Cotton MD [address] [place], [place] [phone] Medication Refill (metoprolol succinate ER (TOPROL-XL) 100 mg Oral Tablet Sustained Release 24 hr) Social History Tobacco Use Types Packs/Day Years Used Date Smoking Tobacco: Former Cigarettes 1.5 15 0 07/10/1984 - 07/10/1999 Smokeless Tobacco: Never Alcohol Use Standard Drinks/Week Comments Yes 12 (1 standard drink = 0.6 oz pu re alcohol) couple beers daily [facility] Utilities Answer Date Recorded In the past 12 months has [employer], gas, oil, or water company threatened to shut off services in your home? No 10/01/2023 Overall Financial Resource Strain (CARDIA) Answe r Date Recorded How hard is it for you to pa y for the very basics like food, housing, medical care, and heating? Not hard at all 10/01/2023 PHQ-2 Answer Date Recorded PHQ-2 Total Score 0 10/01/2023 [facility] [place] of Occupat ional Health - Occupational Stress [...] 10/31/2019 Lack of Transportation (Non-Medical) No 10/31/2019 [facility] IP Transportation Answer D ate Recorded [...] Assessment Author No 08/11/2020 1:05 PM EST Jinny, A javad, MA * Because of a physical, mental [...] Refills Last Filled Start Date End Date metoprolol succinate ER (TOPROL-XL) 100 mg Oral Tablet Sustained Release 24 hrIndications:NSVT (nonsustained ventricular tachycardia) (HCC) Take 1.5 Tablets by mouth 2 times daily. 270 Tablet 3 11/25/2024 documented in this encounter Miscellaneous Notes * Telephone Encounter - Jazmine Manjarrez RMA - 11/25/2024 1:11 PM EDT Rx sent. * Telephone Encounter - Theodora Stewart, Clerical Staff - 11/25/2024 12:05 PM EDT Received a refill request via fax from [facility] pharmacy for: metoprolol succinate ER (TOPROL-XL) 100 mg Oral Tablet Sustained Release 24 hr 3 ordered Take 1.5 Tablets by mouth 2 times daily. Qty 270 Thank you documented in this encounter Plan of Treatment Upcoming Encounters Date Type Department Care Team (Late st Contact Info) Description 06/19/2025 1:45 PM EST [place] [address] Jona Chau MD [address] [place] [address] 11/07/2025 1:30 PM EDT Office Visit [facility] [address] [place] [address] [address] [place] [address] 11/07/2025 2:00 PM EDT Office Visit [facility] [address] [facility] [address] [place] [address] Funmi Aldrich APRN [address] [place] [address] documented as of this encounter [...] as of this encounter Visit Diagnoses Diagnosis NSVT (nonsustained ventricular tachycardia) (HCC) Paroxysmal ventricular tachycardia documented in this encounter Discontinued Medications Medication Sig Discontinue Reason Start Date End Da te metoprolol succinate ER (TOPROL-XL) 100 mg Oral Tablet Sustained Release 24 hrIndications:NSVT (nonsustained ventricular tachycardia) (HCC) Take 1.5 Tablets by mouth 2 times daily. Reorder 11/30/2023 11/25/2024 documented as of this encounter Additional Health Concerns Assessment Noted Time A fall risk assessment has been complete d for the patient 11/30/2023 2:14 PM EDT documented as of this encounter Care Teams Braille Typist Relationship Specialty Start Date End Date Rene Caruso MD [address] [place] [address] [address] [place] [address] PCP - General Family Medicine 10/05/23 documented as of this encounter
--- OUTSIDE RECORDS SUMMARY | 2024-12-16 14:53 | XMS_ITS | Clinical Summary ---
Author Organization [facility] Address [address] [place] [address] Care Team Providers Care Hook And Eye Machine Operator Name Role Phone Alvarez Jaimes MD Unavailable [phone] Scottie Reid MD Primary Care Provider [phone] Allergies Active Allergy Reactions Criticality Noted Date Comments Brenda Reaves 06/15/2015 Other reaction(s): Other (See Comments) Patient states that the medication causes him to become constipated Medications aspirin 325 mg PO tablet Take 325 mg by mouth daily. Active M-VIT PO Take 1 Tablet by mouth daily. Active atorvastatin (LIPITOR) 40 mg Tablet Take 40 mg by mouth every evening. Active torsemide (DEMADEX) 20 mg tablet Take 20 mg by mouth daily. Active losartan (COZAAR) 25 mg Tablet Take 25 mg by mouth 2 times daily. Active metoprolol (TOPROL) 100 mg XL tablet Take 100 mg by mouth 2 times daily. Active apixaban (ELIQUIS) 5 mg Tablet Take 5 mg by mouth 2 times daily. Active naproxen sodium 220 mg Capsule Take 220 mg by mouth daily. Active cyclobenzaprine (FLEXERIL) 5 mg tabletIndications :Spinal stenosis, lumbar region, with neurogenic claudication,Radi culopathy, lumbar region,Lumbar radiculopathy,Spi nal stenosis of lumbar region with neurogenic claudication Take 1-2 Tablets (5-10 mg) by mouth every 8 hours as needed for muscle spasm (Muscle pain). 120 Tablet 1 2 Active Active Problems Problem Noted Date Diagnosed Date Lumbar radiculopathy 05/20/2022 Lumbar stenosis 05/20/2022 Family History Medical History Relation Name Comments Heart Problems Maternal Grandmother Anesthesia Complications Mother carmenza sea/vomiting Heart Problems Mother cabg Relation Name Status Comments Maternal Grandmother Mother Social History Tobacco Use Types Packs/Day Years Used Date Smoking Tobacco: Former Cigarettes Q uit: 1991 Smokeless Tobacco: Never Alcohol Use Standard Drinks/Week Comments Yes 0 (1 standard drink = 0.6 oz pur e alcohol) on occasion Sex and Gender Information Value Date Recorded Sex Assigned at Not on file Legal Sex Male 5:13 PM EST Gender Identity Not on file Sexual Orientation Not on file Last Filed Vital Signs Vital Sign Reading Time Taken Comments Blood Pressure 119/89 05/21/2022 3:59 PM EST Pulse 78 05/21/2022 3:59 PM EST Temperature 36.7 C (98 F) 05/21/2022 3:59 PM EST Respiratory Rate 16 05/21/2022 3:59 PM EST Oxygen Saturation 96% 05/21/2022 3:59 PM EST Inhaled Oxygen Concentration - - Weight 116 kg (255 lb 11.7 oz) 05/20/2022 8:57 A M EST Height 182.9 cm (6') 05/20/2022 8:57 AM EST Body Mass Index 34.68 05/20/2022 8:57 AM EST Plan of Treatment Health Maintenance Due Date Last Done Comments Cologuard 1956 Colonoscopy 1956 Colorectal Cancer Screening 1956 FIT 1956 Lipid Monitoring 1973 Tetanus Vaccination (Every 10 Years) 1974 Hepatitis C Virus (HCV) Screening 1977 Pneumococcal Vaccine: 50+ Years (1 of 1 - PCV) 007 Zoster-RZV(Shingrix) (1 of 2) 2006 Fall Risk Assessment 2021 COVID-19 Vaccine ( - 2023- season) 2024 Advance Care Planning 07/10/2024 Depression Screening 07/10/2024 Influenza Vaccination (Season Ended) 03/10/202506/10 RSV Vaccines (1 - 1-dose 75+ series) 12/08/2031 Medical Devices Implanted Type Area Electronic Semiconductor Processor Device Identifier Shelf Expiration Date Model / Serial / Lot Cervical Tissue 4.75 X 6.22mm Implanted:Qty : 1 on 01/24/2008 at [facility] Spine Cervical * [id number] [id number] / [id number] Cervical Tissue 4.75 X 6.22mm Implanted:Qty : 1 on 01/24/2008 at [facility] Spine Cervical * [facility] [id number] / [id number] Cervical Tissue 4.75 X 6.22mm Implanted:Qty : 1 on 01/24/2008 at [facility] Spine Cervical * [id number] [id number] / -[id number] Plate 48mm Implanted:Qty : 1 on 01/24/2008 at [facility] Spine Cervical * [employer] [id number] / / Screw 14mm Implanted:Qty : 8 on 01/24/2008 at [facility] Spine Lumbar * [employer] [id number] / / Bluff+ Acp, 3 Level, 48mm - S1 Implanted:Qty : 1 on 08/06/2009 at [facility] N/A: Spine Cervical * USE JJ DEPU [id number] / / Screw Oversize 14mm - S1 Implanted:Qty : 8 on 08/06/2009 at [facility] N/A: Spine Cervical * USE JJ DEPU [id number] / / Insurance [employer] MEDICARE Advance Directives For more information, please contact: [phone] * Full Code (Latest Code Status on File) Date Activated Date Inactivated Comments 05/20/2022 2:32 PM Care Teams Hook And Eye Machine Operator Relationship Specialty Start Date End Date Scottie Reid MD [address] [place] [id number] PCP - General Family Medicine 05/13/22 Alvarez Jaimes MD [address] [place] [address] Orthopedic Surgery 05/10/22
--- OUTSIDE RECORDS SUMMARY | 2024-12-16 14:53 | XMS_ITS | Encounter Summary ---
Author Organization [place] [address] Care Team Providers Care Auto Job Estimator Name Role Phone Rene Caruso MD Primary Care Provider [phone] [phone] Reason for Visit * Reason Onset Date Comments Cardiology Clearance 10/23/2024 Encounter Details Date Type Department Care Team (Late st Contact Info) Description 10/23/2024 Telephone [facility] [place] [address] [place], [place] [id number] Jona Chau MD [address] [place] [address] Cardiology Clearance Social History Tobacco Use Types Packs/Day Years Used Date Smoking Tobacco: Former Cigarettes 1.5 15 0 07/10/1984 - 07/10/1999 Smokeless Tobacco: Never Alcohol Use Standard Drinks/Week Comments Yes 12 (1 standard drink = 0.6 oz pu re alcohol) couple beers daily [facility] Utilities Answer Date Recorded In the past 12 months has [employer], gas, oil, or water [employer] threatened to shut off services in your home? No 10/01/2023 Overall Financial Resource Strain (CARDIA) Answe r Date Recorded How hard is it for you to pa y for the very basics like food, housing, medical care, and heating? Not hard at all 10/01/2023 PHQ-2 Answer Date Recorded PHQ-2 Total Score 0 10/01/2023 [facility] [place] of Occupat ional Health - Occupational Stress [...] 10/31/2019 Lack of Transportation (Non-Medical) No 10/31/2019 [facility] IP Transportation Answer D ate Recorded [...] Penny Youngblood MA documented in this encounter Miscellaneous Notes * Telephone Encounter - Madhu Leonardo LPN - 10/23/2024 2:56 PM EDT The assessment below is only valid for 30 days from signature and is subject to change based upon the patient's clinical condition. Cardiac Clearance Patient: Amos Graham : 1955 Procedure: Epidural injections Surgery date: Surgeon: [facility] outpatient services pain managment Anesthesia: Not specified Patient takes: [] ASA [] Plavix [] Brilinta [] Effient [x] Eliquis [] Xarelto [] Pradaxa [] Warfarin [] Pletal Surgery office requesting to hold a/c for 4 days prior to surgery. Please advise. documented in this encounter Plan of Treatment Upcoming Encounters Date Type Department Care Team (Late st Contact Info) Description 06/19/2025 1:45 PM EST Office Visit [facility] [address] [address] Jona Chau MD [address] [place] [address] 11/07/2025 1:30 PM EDT Office Visit [facility] [address] [place] [address] [place] [address] 11/07/2025 2:00 PM EDT Office Visit [facility] [address] [place] [address] Funmi Aldrich APRN [address] [place] [address] documented as of this encounter Goals Goal Patient Goal Type Associated Problems Recent Progress Patient-Stated? Author Blood Pressure < 140/90 Blood Pressure 130/68(11/07 2:25 PM EDT) Temi Cardenas APRN Maintain a healthy diet, exercise regularly and maintain an ideal body weight General No Temi Isabel APRN Wound Healing General Not on track(2023 4:43 PM EDT) Clari Brumfield RN Note: Wound Care Goals RIGHT LOWER [...] Cardenas APRN documented as of this encounter Visit Diagnoses Not on filedocumented in this encounter Additional Health Concerns Assessment Noted Time A fall risk assessment has been complete d for the patient 11/30/2023 2:14 PM EDT documented as of this encounter Care Teams Auto Job Estimator Relationship Specialty Start Date End Date Rene Caruso MD [address] [facility] [address] [place] [address] PCP - General Family Medicine 10/05/23 documented as of this encounter
--- OUTSIDE RECORDS SUMMARY | 2024-12-16 14:53 | XMS_ITS | Encounter Summary ---
Author Organization [place] [address] Care Team Providers Care Chief Engineering Division Name Role Phone Temi Isabel MARCELO Primary Care Provider [phone] [phone] Gaye Stern MD Primary Care Provi Rene Sage MD Primary Care Provider [phone] [phone] Encounter Details Date Type Department Care Team (Late st Contact Info) Description 02/08/2021 Orders Only [facility] [address] [facility] [address] [place] [address] Jorden Cotton MD [address] [place], [place] [id number] Social History Tobacco Use Types Packs/Day Years Used Date Smoking Tobacco: Former Cigarettes 1.5 15 0 07/10/1984 - 07/10/1999 Smokeless Tobacco: Never Alcohol Use Standard Drinks/Week Comments Yes 25 (1 standard drink = 0.6 oz pu re alcohol) couple beers daily Overall Financial Resource Strain (CARDIA) Answe r Date Recorded Difficulty of Paying Living Expenses Not hard at all 10/31/2019 PHQ-2 Answer Date Recorded PHQ-2 Total Score 0 08/11/2020 Hunger Vital Sign Answer Date Recorded Worried About Running Out of Food in the Last Ye ar Never true 10/31/2019 Ran Out of Food in the Last Year Never true 10/31/2019 PRAPARE - Transportation Answer Date Re corded Lack of Transportation (Medical) No 10/31/2019 Lack of Transportation (Non-Medical) No 10/31/2019 Sex and Gender Information Value Date Recorded Sex Assigned at Not on file Legal Sex Male 11:59 AM EDT Gender Identity Not on file Sexual Orientation Not on file COVID-19 Exposure Response Date Recorded In the last month, have you been in contact with someone who was confirmed or suspected to have Coronavirus / COVID-19? No / Unsure 02/05/2021 1:53 PM EDT documented as of this encounter Functional Status [...] Assessment Author No 08/11/2020 1:05 PM Penny Yonugblood MA documented as of this encounter Mental [...] 1:45 PM EST Office Visit [facility] [address] [place] [address] Jona Chau MD [address] [place] [address] 11/07/2025 1:30 PM EDT Office Visit [facility] [address] [facility] [address] [place] [address] 11/07/2025 2:00 PM EDT Office Visit [facility] [address] [facility] [address] [place] [address] Funmi Aldrich APRN [address] [place] [address] documented as of this encounter Goals Goal Patient Goal Type Associated Problems Recent Progress Patient-Stated? Author Blood Pressure < 140/90 Blood Pressure 130/68(2024 2:25 PM EDT) No Temi Isabel APRN Maintain a healthy diet, exercise regularly and maintain an ideal body weight General No Temi Isabel APRN Stay Tobacco Free Lifestyle No Temi Isabel APRN documented as of this encounter Procedures Procedure Name Priority Date/Time Associated Diagnosis Comments PACEART REPORT Routine 02/08/2021 4:00 AM EDT documented in this encounter Results * PACEART REPORT (02/08/2021 4:00 AM EDT) 02/08/2021 4:00 AM EDT Narrative [facility] - 02/08/2021 12:30 PM EDT - Medtronic SR ICD remote for Avg. Ventricular Rate >= 100 bpm during AF (>= 6 hr) for 1 days CareAlert. - Pt was seen on 02/05/[address] Cotton. Order for Coreg to be increased to 12.5mg at that time. - (4) NS-VT episodes since 02/05/21. All on 02/06/21 between 18:07 - 21:58. All 1 sec duration. None since. - (3) AT/AF events. Known h/o AF and on ELIQUIS. AF burden = 97.3%. - Battery, charge time and lead/shock measurements = stable/WNL. Sensing integrity counters = (0). - Presenting rhythm EGM = Irregular and rapid Vs'ing rhythm and rate in 130- 160's. - Discussed events and heart rate from midnight. Pt denies any symptoms and was getting up to go to his bed @ midnight d/t falling asleep in his recliner. He denies taking COREG @ 12.5mg BID as directed on Monday02/05/[address] Cotton OV. He will start taking (2) tabs of 6.25mg COREG BID and will get his refill this week as he will run out. Informed him the fast HR's likely d/t not taking med as directed and I will send in the new prescription for COREG 12.5mg BID and he will only need to take (1) tab when he gets the new refill. He v/uMark Mobley RN/CDS. us Jorden Cotton MD [facility] CARDIAC CATH ORDERAB LES Final Result [facility] [address] [place] [address] documented in this encounter Visit Diagnoses Not on filedocumented in this encounter Care Teams Chief Engineering Division Relationship Specialty Start Date End Date Temi Isabel APRN [address] [facility] [place] [phone] PCP - General Nurse Practitioner-Family 08/11/2002/07 Gaye Stern MD [address] [place] [address] PCP - General Family Medicine 04/26/22 10/03/23 Rene Caruso MD [facility] [address] [place] [phone] PCP - General Family Medicine 10/05/23 documented as of this encounter
--- OUTSIDE RECORDS SUMMARY | 2024-12-16 14:53 | XMS_ITS | Encounter Summary ---
Author Organization [place] [address] Care Team Providers Care Medical Education Manager Name Role Phone Gaye Stern MD Primary Care Provi Rene Sage MD Primary Care Provider [phone] [phone] Encounter Details Date Type Department Care Team (Late st Contact Info) Description 07/20/2021 Orders Only [facility] [address] [facility] [address] [place] [address] Jorden Cotton MD [address] [place] [address] Social History Tobacco Use Types Packs/Day Years [...] have Coronavirus / COVID-19? No / Unsure 07/12/2021 2:44 PM EST documented as of this encounter Functional Status * Is the person deaf or does he/she have serious difficulty hearing? Answer Date of Assessment Author No 08/11/2020 1:05 PM EST Penny Stearns MA * Is the person blind or does he/she have serious difficulty seeing even when wearing glasses? Answer Date of Assessment Author No 08/11/2020 1:05 PM EST Penny Stearns MA * Does this person have serious difficulty walking or climbing stairs? Answer Date of Assessment Author No 08/11/2020 1:05 PM EST Penny Stearns MA * Does this person have difficulty dressing or bathing? Answer Date of Assessment Author No 08/11/2020 1:05 PM EST Penny Stearns MA * Because of a physical, mental or emotional condition, does this person have difficulty doing errands alone such as visiting a doctor's office or shopping? Answer Date of Assessment Author No 08/11/2020 1:05 PM EST Penny Stearns MA documented as of this encounter Mental [...] 1:45 PM EST Office Visit [facility] [address] [address] Jona Chau MD [address] [place] [address] 11/07/2025 1:30 PM EDT Office Visit [facility] [address] [place] [address] [address] [place] [address] 11/07/2025 2:00 PM EDT Office Visit [facility] [address] [place] [address] [address] [place] [address] Funmi Aldrich APRN [address] [place] [address] documented as of this encounter Goals Goal [...] Date/Time Associated Diagnosis Comments PACEART REPORT Routine 07/20/2021 9:26 PM EST documented in this encounter Results * PACEART REPORT (07/20/2021 9:26 PM EST) 07/20/2021 9:26 PM EST Narrative [facility] - 07/23/2021 3:49 PM EST Per Vector: CLINIC REQUESTED: No significant episodes. NSVT: 4.AT/AF [place]: 68.9%. Known AF, patient on AC. NUT PACKER: 16.4%. Normal device function. 10.2 battery.- No sure who requested- no notes in Epic/paceart/ER or scheduled appointments. Alexandra Xiong RN us Jorden Cotton MD [facility] CARDIAC CATH ORDERAB LES Final Result [facility] 1 [place], [place] [id number] documented in this encounter Visit Diagnoses Not on filedocumented in this encounter Care Teams Medical Education Manager Relationship Specialty Start Date End Date Gaye Stern MD PCP - General Family Medicine 04/26/22 10/03/23 Rene Caruso MD [address] [facility] [address] [facility] [place] [address] PCP - General Family Medicine 10/05/23 documented as of this encounter
--- OUTSIDE RECORDS SUMMARY | 2024-12-16 14:53 | XMS_ITS | Encounter Summary ---
Author Organization [facility] Address [address] [place] [address] Care Team Providers Care Shredding Floor Equipment Operator Name Role Phone Rene Caruso MD Primary Care Provider [phone] [phone] Reason for Visit * Reason Onset Date Comments Other 11/25/2024 RF Gabapentin Encounter Details Date Type Department Care Team (Late st Contact Info) Description 11/25/2024 [place] [address] Jose Solorio MD [address] [place] [address] Other (RF Gabapentin) Social History Tobacco Use Types Packs/Day Years Used Date Smoking Tobacco: Former Cigarettes 1.5 15 0 07/10/1984 - 07/10/1999 Smokeless Tobacco: Never Alcohol Use Standard Drinks/Week Comments Yes 12 (1 standard drink = 0.6 oz pu re alcohol) couple beers daily [facility] Utilities Answer Date Recorded In the past 12 months has [employer], gas, oil, or water [employer] threatened to shut off services in your home? No 10/01/2023 Overall Financial Resource Strain (CARDIA) Answe r Date Recorded How hard is it for you to pa y for the very basics like food, housing, medical care, and heating? Not hard at all 10/01/2023 PHQ-2 Answer Date Recorded PHQ-2 Total Score 0 10/01/2023 [facility] [place] of Occupat ional Health - Occupational Stress [...] 10/31/2019 Lack of Transportation (Non-Medical) No 10/31/2019 [facility] IP Transportation Answer D ate Recorded In [...] encounter Miscellaneous Notes * Telephone Encounter - Ceci Simms MA - 11/25/2024 1:04 PM EDT Returned patient's call about the Gabapentin. Advised that since we are not currently seeing him that unfortunately we will not be refilling his mediation. If he would like he can call his primary care provider to see if they will send a prescription in for him. He stated he figured we would tell him that and that we can cut him off all we want because he's going to cut us off and hung up the phone. * Telephone Encounter - Etta Govea, Clerical Staff - 11/25/2024 12:52 PM EDTSummary: RF Request I called patient to schedule a f/p with Dr. Brown today. Upon talking with him, he asked me to send a message to the [employer] to request a refill of his Gabapentin. Please send to [facility] in [place]. If you need to contact patient to discuss, call him at his mobile number. documented in this encounter Plan of Treatment Upcoming Encounters Date Type Department Care Team (Late st Contact Info) Description 06/19/2025 1:45 PM EST Office Visit [facility] [address] [address] Jona Chau MD [address] [place] [address] [place] [address] 11/07/2025 1:30 PM EDT Office Visit [facility] [address] [place] [address] [address] [place] [address] 11/07/2025 2:00 PM EDT Office Visit [facility] [address] [facility] [address] [place] [address] Funmi Aldrich APRN [address] [place], [place] [phone] documented as of this encounter Goals Goal [...] documented as of this encounter Care Teams Shredding Floor Equipment Operator Relationship Specialty Start Date End Date Rene Caruso MD [facility] [address] [place] [address] PCP - General Family Medicine 10/05/23 documented as of this encounter
--- OUTSIDE RECORDS SUMMARY | 2024-12-16 14:53 | XMS_ITS | Encounter Summary ---
Author Organization [place] [address] Care Team Providers Care Wall To Wall Carpet Installer Name Role Phone Rene Caruso MD Primary Care Provider [phone] [phone] Reason for Visit * Reason Onset Date Comments Reschedule 10/18/2024 Encounter Details Date Type Department Care Team (Late st Contact Info) Description 10/18/2024 Telephone [facility] [address] [facility] [place] [facility] [address] [place] [address] Funmi Aldrich, MARCELO [address] [place], [place] [phone] Reschedule Social History Tobacco Use Types Packs/Day Years Used Date Smoking Tobacco: Former Cigarettes 1.5 15 0 07/10/1984 - 07/10/1999 Smokeless Tobacco: Never Alcohol Use Standard Drinks/Week Comments Yes 12 (1 standard drink = 0.6 oz pu re alcohol) couple beers daily [facility] Utilities Answer Date Recorded In the past 12 months has [employer], gas, oil, or water [employer] threatened to shut off services in your home? No 10/01/2023 Overall Financial Resource Strain (CARDIA) Answe r Date Recorded How hard is it for you to pa y for the very basics like food, housing, medical care, and heating? Not hard at all 10/01/2023 PHQ-2 Answer Date Recorded PHQ-2 Total Score 0 10/01/2023 [facility] [place] of Occupat ional Health - Occupational Stress [...] 10/31/2019 Lack of Transportation (Non-Medical) No 10/31/2019 [facility] Transportation Answer [...] of Assessment Author No 08/11/2020 1:05 PM Penyn Youngblood MA * Is the person blind [...] encounter Miscellaneous Notes * Telephone Encounter - Indra Soto MA - 10/18/2024 10:25 AM EDT Spoke with patient to reschedule their appointment scheduled on 10/24 to 11/07. documented in this encounter Plan of Treatment Upcoming Encounters Date Type Department Care Team (Late st Contact Info) Description 06/19/2025 1:45 PM EST Office Visit [facility] [address] [address] Jona Chau MD [address] [place] [address] 11/07/2025 1:30 PM EDT Office Visit [facility] [address] [place] [address] 11/07/2025 2:00 PM EDT Office Visit [facility] [address] [place] [address] Funmi Aldrich APRN [address] [place] [phone] documented as of this encounter Goals Goal [...] documented as of this encounter Care Teams Wall To Wall Carpet Installer Relationship Specialty Start Date End Date Rene Caruso MD [facility] [place] [address] [place] [address] PCP - General Family Medicine 10/05/23 documented as of this encounter
--- OUTSIDE RECORDS SUMMARY | 2024-12-16 14:53 | XMS_ITS | Encounter Summary ---
Author Organization [place] [address] Care Team Providers Care High [employer] Library Media Specialist Name Role Phone Rene Caruso MD Primary Care Provider [phone] [phone] Encounter Details Date Type Department Care Team (Late st Contact Info) Description 11/21/2024 Orders Only [facility] [address] [facility] [address] [place] [address] Jorden Cotton MD [address] [place], [place] [phone] Vector Remote Device Social History Tobacco Use Types Packs/Day Years Used Date Smoking Tobacco: Former Cigarettes 1.5 15 0 07/10/1984 - 07/10/1999 Smokeless Tobacco: Never Alcohol Use Standard Drinks/Week Comments Yes 12 (1 standard drink = 0.6 oz pu re alcohol) couple beers daily [facility] Utilities Answer Date Recorded In the past 12 months has [employer], gas, oil, or water [employer] threatened to shut off services in your home? No 10/01/2023 Overall Financial Resource Strain (CARDIA) Answe r Date Recorded How hard is it for you to pa y for the very basics like food, housing, medical care, and heating? Not hard at all 10/01/2023 PHQ-2 Answer Date Recorded PHQ-2 Total Score 0 10/01/2023 [facility] of Occupat ional Health - Occupational Stress [...] Lack of Transportation (Non-Medical) No 10/31/2019 [facility] IP Transportation Answer D ate Recorded [...] 1:45 PM EST Office Visit [facility] [address] [address] Jona Chau MD [address] [place] [address] 11/07/2025 1:30 PM EDT Office Visit [facility] [address] [place] [address] 11/07/2025 2:00 PM EDT Office Visit [facility] [address] [place] [address] Funmi Aldrich APRN [address] [place] [phone] documented as of this encounter Goals Goal [...] Procedure Name Priority Date/Time Associated Diagnosis Comments VECTOR REMOTE DEVICE Routine 11/21/2024 12:00 AM EDT Vector Remote Device documented in this encounter Results * VECTOR REMOTE DEVICE (11/21/2024 12:00 AM EDT) 11/21/2024 Narrative [facility] - 11/21/2024 12:00 AM EDT Clinic Requested to assess histograms. No episodes. Patient on AC. Mode: VVIR. FREEZER OPERATOR: 99.3%. Normal device function. Device Advisory. Addendum: Histogram has improved greatly since programming changes /BE us Jorden Cotton MD [facility] CARDIAC CATH ORDERAB LES Final Result [facility] [address] [place] [address] documented in this encounter Visit Diagnoses Diagnosis Vector Remote Device documented in this encounter Additional Health Concerns Assessment Noted Time A fall risk assessment has been complete d for the patient 11/30/2023 2:14 PM EDT documented as of this encounter Care Teams [employer] Library Media Specialist Relationship Specialty Start Date End Date Rene Caruso MD [address] [place] [phone] PCP - General Family Medicine 10/05/23 documented as of this encounter
--- OUTSIDE RECORDS SUMMARY | 2024-12-16 14:53 | XMS_ITS | Encounter Summary ---
Author Organization [place] [address] Care Team Providers Care Ip Paralegal Name Role Phone Temi Isabel APRN Primary Care Provider [phone] Reena Benson RN Unavailable Unavailable Helder Yung MD Primary Care Provider [phone] Temi Isabel APRN Primary Care Provider + [phone] Gaye Stern MD Primary Care Provi sonal Unavailable Rene Caruso MD Primary Care Provider [phone] [phone] Encounter Details Date Type Department Care Team (Late st Contact Info) Description 10/22/2019 Orders Only [facility] [address] [facility] [address] [place] [address] Jorden Cotton MD [address] [place], [place] [id number] Social History Tobacco Use Types Packs/Day Years Used Date Smoking Tobacco: Former Cigarettes 1.5 15 0 07/10/1984 - 07/10/1999 Smokeless Tobacco: Never Alcohol Use Standard Drinks/Week Comments Yes 25 (1 standard drink = 0.6 oz pu re alcohol) couple beers daily PHQ-2 Answer Date Recorded PHQ-2 Score 0 04/09/2019 Sex and Gender Information Value Date Recorded Sex Assigned at Not on file Legal Sex Male 11:59 AM EDT Gender Identity Not on file Sexual Orientation Not on file COVID-19 Exposure Response Date Recorded In the last month, have you been in contact with someone who was confirmed or suspected to have Coronavirus / COVID-19? No / Unsure 10/22/2019 1:37 PM EDT documented as of this encounter Functional Status * Is the person deaf or does he/she have serious difficulty hearing? Answer Date of Assessment Author No 04/09/2019 1:19 PM EDT Madyson Seema Rust STEPH * Is the person blind or does he/she have serious difficulty seeing even when wearing glasses? Answer Date of Assessment Author No 04/09/2019 1:19 PM EDT Seema Coughlin STEPH * Does this person have serious difficulty walking or climbing stairs? Answer Date of Assessment Author No 04/09/2019 1:19 PM EDT Seema Coughlin RMPenny * Does this person have difficulty dressing or bathing? Answer Date of Assessment Author No 04/09/2019 1:19 PM EDT Seema Coughlin STEPH * Because of a physical, mental or emotional condition, does this person have difficulty doing errands alone such as visiting a doctor's office or shopping? Answer Date of Assessment Author No 04/09/2019 1:19 PM EDT Madyson Seema Rust STEPH documented as of this encounter Mental Status * Because of a physical, mental or emotional condition, does this person have serious difficulty concentrating, remembering or making decisions? Answer Entry Date Author No 04/09/2019 1:19 PM EDT Seema Coughlin STEPH documented in this encounter Plan of Treatment Upcoming Encounters Date Type Department Care Team (Late st Contact Info) Description 06/19/2025 1:45 PM EST Office Visit [facility] [address] Jona Chau MD [address] [place] [address] 11/07/2025 1:30 PM EDT Office Visit [facility] [address] [place] [address] 11/07/2025 2:00 PM EDT Office Visit [facility] [address] [place] [phone] Funmi Aldrich APRN [address] [place], [place] [id number] documented as of this encounter Goals Goal [...] Date/Time Associated Diagnosis Comments PACEART REPORT Routine 10/22/2019 12:15 PM EDT documented in this encounter Results * PACEART REPORT (10/22/2019 12:15 PM EDT) 10/22/2019 12:[address] [facility] - 10/22/2019 9:54 AM EDT [facility] transmission for POD #1 check. Karly Barrera, RN, BSN us Jorden Cotton MD [facility] CARDIAC CATH ORDERAB LES Final Result [facility] [address] [place] [address] documented in this encounter Visit Diagnoses Not on filedocumented in this encounter Care Teams Ip Paralegal Relationship Specialty Start Date End Date Temi Isabel APRN [address] [place] [address] [place] [phone] PCP - General Nurse Practitioner-Family 02/27/1707/10 Helder Yung MD [address] [place] [address] [place] [address] PCP - General Family Medicine 07/23/20 08/10/20 Temi Isabel APRN [address] [place] [address] [place] [address] PCP - General Nurse Practitioner-Family 08/11/2002/07 Gaye Stern MD [address] [place] [address] [place] [address] PCP - General Family Medicine 04/26/22 10/03/23 Rene Caruso MD [address] [place] [phone] PCP - General Family Medicine 10/05/23 Reena Benson, RN [employer] Shop Supervisor Registered Nurse 10/31/19 12/31/19 documented as of this encounter
--- OUTSIDE RECORDS SUMMARY | 2024-12-16 14:53 | XMS_ITS | Encounter Summary ---
Author Organization [place] [address] Care Team Providers Care Online Content Developer Name Role Phone Temi sIabel APRN Primary Care Provider [phone] Reena Benson RN Unavailable Unavailable Helder Yung MD Primary Care Provider [phone] Temi Isabel APRN Primary Care Provider [phone] Gaye Stern MD Primary Care Provi sonal Unavailable Rene Caruso MD Primary Care Provider [phone] [phone] Encounter Details Date Type Department Care Team (Late st Contact Info) Description 10/27/2019 Orders Only [facility] [address] [facility] [address] [place] [address] Jorden Cotton MD [address] [place] [address] Social History Tobacco Use Types Packs/Day Years [...] all 10/31/2019 PHQ-2 Answer Date Recorded PHQ-2 Score 0 04/09/2019 Hunger Vital Sign Answer Date Recorded Worried [...] No 04/09/2019 1:19 PM EDT Seema Coughlin RMA * Is the person blind or does he/she have serious difficulty seeing even when wearing glasses? Answer Date of Assessment Author No 04/09/2019 1:19 PM EDT Seema Coughlin RMA * Does this person have serious difficulty walking or climbing stairs? Answer Date of Assessment Author No 04/09/2019 1:19 PM EDT Seema Coughlin RMA * Does this person have difficulty dressing or bathing? Answer Date of Assessment Author No 04/09/2019 1:19 PM EDT Seema Coughlin RMA * Because of a physical, mental or emotional condition, does this person have difficulty doing errands alone such as visiting a doctor's office or shopping? Answer Date of Assessment Author No 04/09/2019 1:19 PM EDT Seema Coughlin RMA documented as of this encounter Mental Status * Because of a physical, mental or emotional condition, does this person have serious difficulty concentrating, remembering or making decisions? Answer Entry Date Author No 04/09/2019 1:19 PM EDSeema Kendall RMA documented in this encounter Plan of Treatment Upcoming Encounters Date Type Department Care Team (Late st Contact Info) Description 06/19/2025 1:45 PM EST Office [place] [address] Jona Chau MD [address] [place] [address] 11/07/2025 1:30 PM EDT Office Visit [facility] [address] [facility] [address] [place] [address] 11/07/2025 2:00 PM EDT Office Visit [facility] [address] [facility] [address] [place] [address] Funmi Aldrich APRN [address] [place] [address] documented as of this encounter [...] Date/Time Associated Diagnosis Comments PACEART REPORT Routine 10/27/2019 1:33 PM EDT documented in this encounter Results * PACEART REPORT (10/27/2019 1:33 PM EDT) 10/27/2019 1:33 PM EDT Narrative [facility] - 10/28/2019 8:46 AM EDT [facility] notes Normal Device function, battery , leads function WNL, 1 AT/AF events 6 min. Alexandra Xiong RN us Jorden Cotton MD [facility] CARDIAC CATH ORDERAB LES Final Result [facility] [address] [place] [address] documented in this encounter Visit Diagnoses Not on filedocumented in this encounter Care Teams Online Content Developer Relationship Specialty Start Date End Date Temi Isabel APRN [address] [place] [phone] PCP - General Nurse Practitioner-Family 02/27/1707/10 Helder Yung MD [address] [place] [address] [place] [address] PCP - General Family Medicine 07/23/20 08/10/20 Temi Isabel APRN [address] [place] [address] [place] [address] PCP - General Nurse Practitioner-Family 08/11/2002/07 Gaye Stern MD [address] [place] [address] [place] [address] PCP - General Family Medicine 04/26/22 10/03/23 Rene Caruso MD [facility] [address] [place] [address] PCP - General Family Medicine 10/05/23 Reena Benson, SHA [employer] Operator Registered Nurse 10/31/19 12/31/19 documented as of this encounter
--- OUTSIDE RECORDS SUMMARY | 2024-12-16 14:53 | XMS_ITS | Encounter Summary ---
Author Organization [facility] Address [address] [place] [address] Care Team Providers Care Operations Manager Assistant Name Role Phone Rene Caruso MD Primary Care Provider [phone] Reason for Visit * Reason Onset Date Comments Other 11/25/2024 schedule f/p Encounter Details Date Type Department Care Team (Late st Contact Info) Description 11/25/2024 Telephone [facility] [place] [phone] [place] [phone] René Brown MD [address] [place] [address] Other (schedule f/p) Social History Tobacco Use Types Packs/Day Years Used Date Smoking Tobacco: Former Cigarettes 1.5 15 0 07/10/1984 - 07/10/1999 Smokeless Tobacco: Never Alcohol Use Standard Drinks/Week Comments Yes 12 (1 standard drink = 0.6 oz pu re alcohol) couple beers daily [facility] Utilities Answer Date Recorded In the past 12 months has [employer], gas, oil, or water [employer] threatened to shut off services in your home? No 10/01/2023 Overall Financial Resource Strain (CARDIA) Answe r Date Recorded How hard is it for you to pa y for the very basics like food, housing, medical care, and heating? Not hard at all 10/01/2023 PHQ-2 Answer Date Recorded PHQ-2 Total Score 0 10/01/2023 [facility] [place] of Occupat ional Health - Occupational Stress [...] 10/31/2019 Lack of Transportation (Non-Medical) No 10/31/2019 [facility] IP Transportation Answer D ate Recorded [...] encounter Miscellaneous Notes * Telephone Encounter - Etta Govea, Clerical Staff - 11/26/2024 3:18 PM EDT patient called me back on 11/25 and is scheduled on 12/05 for test result appt with Dr. Brown * Telephone Encounter - Etta Govea, Clerical Staff - 11/25/2024 12:34 PM EDTSummary: Message I called patient today at 12:33 pm and for return call. I would like to get him scheduled for his f/p appt after his [place] bonescan on 12/03/24. documented in this encounter Plan of Treatment Upcoming Encounters Date Type Department Care Team (Late st Contact Info) Description 06/19/2025 1:45 PM EST Office Visit [facility] [address] [address] Jona Chau MD [address] [place] [address] 11/07/2025 1:30 PM EDT Office Visit [facility] [address] [place] [address] 11/07/2025 2:00 PM EDT Office Visit [facility] [address] [place] [address] Funmi Aldrich APRN [address] [place] [phone] documented as of this encounter Goals Goal [...] documented as of this encounter Care Teams Operations Manager Assistant Relationship Specialty Start Date End Date Rene Caruso MD [address] [facility] [address] [place] [address] PCP - General Family Medicine 10/05/23 documented as of this encounter
--- OUTSIDE RECORDS SUMMARY | 2024-12-16 14:53 | XMS_ITS | Encounter Summary ---
Author Organization [place] [address] Care Team Providers Care Armor Reconnaissance Specialist Name Role Phone Rene Caruso MD Primary Care Provider [phone] Reason for Visit * Reason Onset Date Comments Cardiology Clearance 10/23/2024 ([facility] Pain M anagment) Encounter Details Date Type Department Care Team (Late Contact Info) Description 10/23/2024 Telephone [facility] [place] [address] [place] [address] Jona Chau MD [address] [place] [address] Cardiology Clearance (([facility])) Social History Tobacco Use Types Packs/Day Years Used Date Smoking Tobacco: Former Cigarettes 1.5 15 0 07/10/1984 - 07/10/1999 Smokeless Tobacco: Never Alcohol Use Standard Drinks/Week Comments Yes 12 (1 standard drink = 0.6 oz pu re alcohol) couple beers daily [facility] Utilities Answer Date Recorded In the past 12 months has [employer], gas, oil, or water [employer] threatened to shut off services in your home? No 10/01/2023 Overall Financial Resource Strain (CARDIA) Answe r Date Recorded How hard is it for you to pa y for the very basics like food, housing, medical care, and heating? Not hard at all 10/01/2023 PHQ-2 Answer Date Recorded PHQ-2 Total Score 0 10/01/2023 [facility] [place] of Occupat ional Health - Occupational Stress [...] Transportation (Non-Medical) No 10/31/2019 [facility] IP Transportation Answer D ate Recorded In [...] encounter Miscellaneous Notes * Telephone Encounter - Navjot Doll MA - 10/24/2024 4:42 PM EDT Faxed * Telephone Encounter - Jona Chau MD - 10/24/2024 4:21 PM EDT Will recommend only hold Eliquis for 72hrs and then restart Can proceed * Telephone Encounter - Navjot Doll MA - 10/23/2024 3:09 PM EDT The assessment below is only valid for 30 days from signature and is subject to change based upon the patient's clinical condition. Cardiac Clearance Patient: Amos Graham : 1955 Procedure: Epidural injections Surgery date: 11/19/24 Surgeon: Dr. Ritesh Mosqueda Fax: [phone] Anesthesia: No Patient takes: [x] ASA [] Plavix [] Brilinta [] Effient [x] Eliquis [] Xarelto [] Pradaxa [] Warfarin [] Pletal Surgery office did not specify how long to hold anticoagulant(s). Please advise. * Telephone Encounter - Nancy Hdz - 10/23/2024 2:44 PM EDT Please see attached documentation, Originals placed in MAs Bin. Cberry Injection is scheduled for 11/19/24 documented in this encounter Plan of Treatment Upcoming Encounters Date Type Department Care Team (Late st Contact Info) Description 06/19/2025 1:45 PM EST Office Visit [facility] [place] [address] [place] [address] Jona Chau MD [address] [place] [phone] 11/07/2025 1:30 PM EDT Office Visit [facility] [address] [place] [address] [place] [phone] 11/07/2025 2:00 PM EDT Office Visit [facility] [address] [place] [phone] Funmi Aldrich APRN [address] [place] [address] documented as of this encounter Goals [...] documented as of this encounter Care Teams Armor Reconnaissance Specialist Relationship Specialty Start Date End Date Rene Caruso MD [facility] [place] [address] [place] [address] PCP - General Family Medicine 10/05/23 documented as of this encounter
--- OUTSIDE RECORDS SUMMARY | 2024-12-16 14:54 | XMS_ITS | Continuity of Care Document ---
Author Organization [facility] BUSINESS OFFICE Address [facility] [address] [place] [address] Care Team Providers Care Security Risk Analyst Name Role Phone Yuli Caruso MD Primary Care Provider [phone] Encounters Date Type Department Care Team Description 12/10/2024 Orders Only [facility] [address] [facility] [address] [place] [address] Radha Cotton MD Vector Remote Device 12/05/2024 Results Follow-Up [facility] [address] [facility] [address] [place] [address] Funmi Aldrich APRN EC ECHOCARDIOGRAM COMPLETE W DOPPLER AND COLOR FLOW MAPPING 12/05/2024 2:00 PM EDT Office Visit [address] [phone] René Brown MD Status post total hip replacement, right (Primary Dx) 12/03/2024 9:15 AM EDT - 12/03/2024 11:59 PM EDT Hospital Encounter [facility] [address] [place] [address] René Nicholas PA-C Status post total hip replacement, right Discharge Disposition: Home or Self Care 12/03/2024 9:15 AM EDT - 12/03/2024 11:59 PM EDT Hospital Encounter [facility] [address] [place] [address] René Nicholas PA-C Discharge Disposition: Home or Self Care 12/03/2024 9:15 AM EDT - 12/03/2024 11:59 PM EDT Hospital Encounter [facility] ECHO [address] [place] [place] [address] Funmi Aldrich APRN [place] (ventricular tachycardia) (HCC); Healthcare maintenance; Shortness of breath Discharge Disposition: Home or Self Care 11/25/2024 [facility]phone [facility] [address] [place] [address] Jose Solorio MD Other (RF Gabapentin) 11/25/2024 Telephone [facility] [address] [address] René Brown MD Other (schedule f/p) 11/25/2024 Telephone [facility] [address] [place] [phone] Radha Cotton MD Medication Refill (metoprolol succinate ER (TOPROL-XL) 100 mg Oral Tablet Sustained Release 24 hr) 11/21/2024 Orders Only [facility] [address] [place] [address] [place] [phone] Radha Cotton MD Vector Remote Device 11/14/2024 1:30 PM EDT Ancillary Procedure [place] [id number] René Nicholas PA-C Status post total hip replacement, right 11/14/2024 1:15 PM EDT Office Visit [place] [phone] René Nicholas PAFelixC Status post total hip replacement, right (Primary Dx) 11/11/2024 Telephone Structural Hrt/Valve [address] [place] [address] [place] [address] Jacque Ahn, SHA Other 11/07/2024 Orders Only [facility] [address] [place] [phone] Radha Cotton MD Vector Remote Device 11/07/2024 2:30 PM EDT Office Visit [facility] [address] [facility] [address] [place] [address] Funmi Aldrich APRN Healthcare maintenance (Primary Dx); VT (ventricular tachycardia) (HCC); Shortness of breath 11/07/2024 2:00 PM EDT Office Visit [facility] [address] [place] [address] [place] [phone] Dejon Mcqueen MA Ischemic cardiomyopathy (Primary Dx); Implantable defibrillator reprogramming/check; ICD (implantable cardioverter-defibril lator), single, in situ 10/23/2024 Telephone [facility] [address] [address] Jona Chau MD Cardiology Clearance 10/23/2024 Telephone [facility] [address] [phone] Jona Chau MD Cardiology Clearance (([facility] Pain Managment)) 10/18/2024 Telephone [facility] [address] [place] [phone] Funmi Aldrich APRN Reschedule 10/07/2024 Orders Only [facility] [address] [place] [phone] Radha Cotton MD Vector Remote Device 10/06/2024 Orders Only [facility] [address] [place] [phone] Radha Cotton MD Vector Remote Device 10/02/2024 Refill [facility] [address] [phone] Jona Chau MD Medication Refill 09/24/2024 Telephone [facility] [address] [place] [address] Michela Castañeda, Follow-up 09/23/2024 Travel 09/23/2024 12:00 PM EDT Anesthesia Event [facility] [address] [place] [address] Jose Amador, Howard Nichole DO 09/23/2024 11:30 AM EDT - 09/23/2024 11:59 PM EDT Hospital Encounter [facility]TT IR [address] [place] [address] Dejon Capone MD Costantini, Oren M, Margarita Hyatt, DAMIAN Non-pressure chronic ulcer of right lower leg, unspecified ulcer stage (HCC); Coronary artery disease due to calcified coronary lesion Discharge Disposition: Home or Self Care 09/19/2024 12:20 PM EDT - 09/19/2024 11:59 PM EDT Hospital Encounter [facility] LAB[facility]AT[facility] [place] [address] PAD (peripheral artery disease); Coronary artery disease due to calcified coronary lesion Discharge Disposition: Home or Self Care 09/19/2024 11:15 AM EDT Office Visit [facility] [place] [address] [place] [address] Jyothi Decker PA-C PAD (peripheral artery disease) (Primary Dx) 09/11/2024 Orders Only [facility] [place] [address] [place] [address] Michela Castañeda RT PAD (peripheral artery disease) (Primary Dx); Coronary artery disease due to calcified coronary lesion 09/10/2024 Telephone [place] [address] Jona Chau MD Cardiology Clearance 09/05/2024 Orders Only [facility] [address] [facility] [address] [place] [address] Radha Cotton MD Vector Remote Device 08/23/2024 Telephone [facility] [place] [address] [place] [address] Michela Castañeda, RT Confirmation 08/18/2024 Refill [facility] [address] [phone] Jona Chau MD Medication Refill 08/07/2024 Telephone [facility] [place] [address] [place] [address] Michela Castañeda, RT Schedule Appointment 08/05/2024 Orders Only [facility] [address] [facility] [address] [place] [address] Radha Cotton MD Vector Remote Device 08/01/2024 2:15 PM EST [facility] [address] [place] [address] Alvarez Alejo MD Lumbar spondylosis (Primary Dx) 07/22/2024 Telephone [facility] [place] [address] [place] [address] Michela Castañeda, RT Schedule Appointment 07/19/2024 10:30 AM EST - 07/19/2024 11:59 PM EST Hospital Encounter [facility] [place] [address] Jose Solorio MD Lumbar foraminal stenosis; Lumbar spondylosis; Degeneration of intervertebral disc of lumbar region with discogenic back pain; Lumbar pain; Myofascial pain; SI (sacroiliac) joint dysfunction Discharge Disposition: Home or Self Care 07/18/2024 Orders [facility] [place] [address] [place] [phone] Na Mathis, [facility] 07/17/2024 11:00 AM EST Office Visit [facility] [address] [facility] [address] [place] [address] Alvarez Alejo MD Lumbar spondylosis (Primary Dx) 07/16/2024 Orders Only [facility] [place] [address] [place] [address] Michela Castañeda, RT Non-pressure chronic ulcer of right lower leg, unspecified ulcer stage (HCC) (Primary Dx) 07/09/2024 2:30 PM EST Ancillary Procedure [facility] [address] [place] [address] René Nicholas, PA-C Status post total hip replacement, right 07/09/2024 2:15 PM EST Office Visit [facility] [address] [place] [address] René Nicholas PA-C Status post total hip replacement, right (Primary Dx) 07/06/2024 Refill [facility] [place] [address] [place] [address] Vernell Bejarano APRN Medication Refill 07/05/2024 Orders Only [facility] [address] [place] [address] [place] [phone] Radha Cotton MD Vector Remote Device 07/05/2024 Telephone [facility] [address] [place] [address] [place] [phone] Temi Timmons MA Results 07/04/2024 Orders Only [facility] [address] [place] [address] [place] [phone] Radha Cotton MD Vector Remote Device 07/02/2024 Refill [facility] [place] [address] [place] [address] [phone] Jona Chau MD Medication Refill 06/27/2024 8:45 AM EST Office Visit [facility] [address] [place], [place] [phone] Alavrez Alejo MD Lumbar spondylosis (Primary Dx); Lumbar foraminal stenosis; Degeneration of intervertebral disc of lumbar region with discogenic back pain 06/26/2024 Orders Only [facility] [address] [address] Ceci Simms MA Lumbar foraminal stenosis (Primary Dx); Lumbar spondylosis; Degeneration of intervertebral disc of lumbar region with discogenic back pain; Lumbar pain; Myofascial pain; SI (sacroiliac) joint dysfunction 06/26/2024 6:44 PM EST - 06/26/2024 11:59 PM EST Hospital Encounter [facility] [address] [place] [address] Dejon Capone MD Non-pressure chronic ulcer of right lower leg, unspecified ulcer stage (HCC) Discharge Disposition: Home or Self Care 06/25/2024 Telephone [facility] [place] [facility] [place] [phone] [facility] [address] [place] [address] Theresa Goff Load Builder New Patient 06/25/2024 Orders Only [facility] [address] [facility] [address] [place] [address] Ceci Simms MA Lumbar foraminal stenosis (Primary Dx); Lumbar spondylosis; Degeneration of intervertebral disc of lumbar region with discogenic back pain; Lumbar pain; Myofascial pain 06/25/2024 Telephone [facility] [address] [place] [address] Jose Solorio MD 06/13/2024 Travel 06/13/2024 2:15 PM EST Office Visit [facility] [address] [address] Jona Chau MD ASHD (arteriosclerotic heart disease) (Primary Dx) 06/12/2024 Telephone [facility] [place] [address] [place] [address] Michela Castañeda, RT Follow-up 06/12/2024 10:48 AM EST - 06/12/2024 11:59 PM EST Hospital Encounter [facility] ECHO [address] [place] [address] Vernell Bejarano APRN Paroxysmal atrial fibrillation (HCC); Chronic systolic heart failure (HCC); 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; Primary hypertension; Mitral valve disease; Hx of mitral valve replacement; PAD (peripheral artery disease); S/P CABG x 2; single chamber ICD Discharge Disposition: Home or Self Care 06/11/2024 Orders Only [facility] [place] [address] [place] [address] Michela Castañeda, RT Non-pressure chronic ulcer of right lower leg, unspecified ulcer stage (HCC) (Primary Dx) 06/11/2024 3:00 PM EST Office Visit [facility] [place] [address] [place] [address] Dejon Capone MD Leg swelling (Primary Dx) 06/11/2024 2:00 PM EST Clinical Support [facility] [place] [address] [place] [address] Varicose veins of leg with edema, right (Primary Dx) 06/03/2024 Orders Only [facility] [address] [place] [phone] Radha Cotton MD Vector Remote Device 05/24/2024 Refill [facility] [address] [address] Ceci Simms MA Medication Refill 05/24/2024 10:30 AM EST Office Visit [facility] [address] [address] Jose Solorio MD Lumbar foraminal stenosis (Primary Dx); Lumbar spondylosis; Degeneration of intervertebral disc of lumbar region with discogenic back pain; Lumbar pain; Myofascial pain; SI (sacroiliac) joint dysfunction; Pain in other specified joint; Low back pain, unspecified back pain laterality, unspecified chronicity, unspecified whether sciatica present; Postlaminectomy syndrome 05/03/2024 Orders Only [facility] [address] [place] [phone] Radha Cotton MD Vector Remote Device 04/26/2024 Telephone [facility] [place] [address] [facility] [place] [address] Arsen Kerr MD Missed Appointment (pt thought this appt was cancelled, he declined a r/s appt) 04/25/2024 Telephone [facility] [address] [place] [address] [place] [phone] Nicole Jacobsen (T ICD. Carelink monitor. ) 04/25/2024 9:30 AM EDT Office Visit [facility] [address] [place] [address] René Perea MD SI (sacroiliac) joint dysfunction (Primary Dx) 04/22/2024 Telephone [facility] [place] [address] [place] [address] Sofia Maciel MA Follow-up 04/19/2024 Telephone [facility] [address] [phone] Jona Chau MD Medication Refill 04/17/2024 1:30 PM EDT Office Visit [facility] [address] [place] [address] [place] [phone] Theodora Barrera RN Ischemic cardiomyopathy (Primary Dx); Chronic systolic heart failure (HCC); Cardiac arrest with ventricular fibrillation (HCC); ICD (implantable cardioverter-defibril lator), single, in situ; Paroxysmal atrial fibrillation (HCC); Implantable defibrillator reprogramming/check 04/17/2024 2:00 PM EDT Office Visit [facility] [address] [place] [address] [place] [phone] Radha Cotton MD Paroxysmal atrial fibrillation (HCC) (Primary Dx); ICD (implantable cardioverter-defibril lator), single, in situ 04/16/2024 1:30 PM EDT Office Visit [facility] [place] [address] [place] [address] Dejon Capone MD Varicose veins of leg with edema, right (Primary Dx); Non-pressure chronic ulcer of right lower leg, unspecified ulcer stage (HCC); Varicose veins of leg with pain, right 04/12/2024 Telephone [facility] [address] [place] [phone] Evangelina Xiong RN Results (Carelink alert for shock delivered for VF @ 300 bpm) 04/11/2024 Orders Only [facility] [address] [place] [address] [place] [phone] Radha Cotton MD Vector Remote Device 04/05/2024 1:00 PM EDT Office Visit [facility] [address] [facility] [address] [place] [address] Theresa Corona PA SI (sacroiliac) joint dysfunction (Primary Dx); Sacroiliac joint pain; Sacroiliitis, not elsewhere classified; Chronic low back pain, unspecified back pain laterality, unspecified whether sciatica present 04/04/2024 Refill [facility] H&[facility] [place] [phone] Jona Chau MD Medication Refill 04/02/2024 2:50 PM EDT Ancillary Procedure [facility] [address] [place] [address] René Brown MD Status post hip replacement, right 04/02/2024 2:30 [place] [address] René Brown MD Status post hip replacement, right (Primary Dx); Chronic low back pain, unspecified back pain laterality, unspecified whether sciatica present 03/29/2024 1:54 PM EDT - 03/29/2024 11:59 PM EDT Hospital Encounter [facility] [place] [address] 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 [address] Devaughn Paris MD Missed Appointment (Got caught in traffic. Rescheduled for 03/29) 03/21/2024 10:15 AM EDT Office Visit [facility] [address] [place] [address] René Perea MD DDD (degenerative disc disease), lumbar (Primary Dx); Sacroiliitis, not elsewhere classified 03/14/2024 2:15 [place] [address] Theresa Corona PA DDD (degenerative disc disease), lumbar 03/14/2024 2:00 PM EDT Office Visit [address] [address] Theresa Corona PA DDD (degenerative disc disease), lumbar (Primary Dx); Sacroiliac joint pain; SI (sacroiliac) joint dysfunction; Chronic low back pain, unspecified back pain laterality, unspecified whether sciatica present; Lumbar degenerative disc disease; Lumbar foraminal stenosis; Lumbar spondylosis; Lumbar radiculopathy; Lumbar pain; Myofascial pain 03/08/2024 3:13 PM EDT - 03/08/2024 11:59 PM EDT Hospital Encounter [facility] [address] [place] [address] Devaughn Paris MD Edema of both lower legs due to peripheral venous insufficiency (Primary Dx); Venous stasis ulcer of left lower leg with edema of left lower leg (HCC); Non-pressure chronic ulcer of right lower leg with fat layer exposed (HCC); Non-pressure chronic ulcer of left lower leg, with fat layer exposed (HCC) Discharge Disposition: Home or Self Care 03/01/2024 Telephone [facility] [address] [place] [address] Devaughn Paris MD Follow-up (Left VM asked pt to schedule apt with WC) 02/29/[address] [address] René Nicholas PA-C 02/23/2024 2:45 [place] [address] René Nicholas PA-C DDD (degenerative disc disease), lumbar (Primary Dx); Status post hip replacement, right; Chronic left SI joint pain 02/16/2024 3:35 PM EDT - 02/16/2024 11:59 PM EDT Hospital Encounter [facility] [place] [address] 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 [facility] [address] Dejon Capone MD Bilateral leg edema Discharge Disposition: Home or Self Care 02/09/2024 3:25 PM EDT - 02/09/2024 3:28 PM EDT Hospital Encounter [facility]TT [place] [address] [address] [facility] [place] [address] Paroxysmal atrial fibrillation (HCC); Chronic systolic heart failure (HCC); 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; Primary hypertension; Mitral valve disease; Hx of mitral valve replacement; PAD (peripheral artery disease); S/P CABG x 2; single chamber ICD; Bilateral leg edema Discharge Disposition: Home or Self Care 02/09/2024 3:29 PM EDT - 02/09/2024 11:59 PM EDT Hospital Encounter [facility] [place] [address] [place] [address] Dejon Capone MD Non-pressure chronic ulcer of right lower leg with fat layer exposed (HCC) (Primary Dx); Non-pressure chronic ulcer of other part of left lower leg with fat layer exposed (HCC); Edema of both lower legs due to peripheral venous insufficiency; Venous insufficiency Discharge Disposition: Home or Self Care 02/08/2024 3:20 PM EDT Ancillary Procedure [address] [address] René Nicholas PA-C Status post hip replacement, right 02/08/2024 4:00 PM EDT Office Visit [facility] [address] [place] [address] René Nicholas PA-C Status post hip replacement, right (Primary Dx) 02/02/2024 2:00 PM EDT - 02/02/2024 11:59 PM EDT Hospital Encounter [facility] [place] [address] [place] [address] Devaughn Paris MD Non-pressure chronic ulcer of right lower leg with fat layer exposed (HCC) (Primary Dx); Non-pressure chronic ulcer of other part of left lower leg with fat layer exposed (HCC); Edema of both lower legs due to peripheral venous insufficiency Discharge Disposition: Home or Self Care 01/30/2024 Orders Only [facility] [place] [address] [place] [address] Michela Castañeda, RT Bilateral leg edema (Primary Dx) 01/30/2024 Telephone [facility] [place] [address] [place] [address] Michela Castañeda, RT Confirmation; Follow-up 01/29/2024 2:00 PM EDT Office Visit [facility] [address] Vernell Bejarano APRN Paroxysmal atrial fibrillation (HCC) (Primary Dx); Chronic systolic heart failure (HCC); 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; Primary hypertension; Mitral valve disease; Hx of mitral valve replacement; PAD (peripheral artery disease); S/P CABG x 2; single chamber ICD 01/28/2024 Travel 01/26/2024 3:30 PM EDT - 01/26/2024 11:59 PM EDT Hospital Encounter [facility] [address] [place] [address] Devaughn Paris MD Non-pressure chronic ulcer of right lower leg with fat layer exposed (HCC) (Primary Dx); Non-pressure chronic ulcer of other part of left lower leg with fat layer exposed (HCC) Discharge Disposition: Home or Self Care 01/23/2024 Telephone [facility] [place] [address] [place] [address] Michela Castañeda, RT Schedule Appointment 01/23/2024 11:00 AM EDT Office Visit [facility] [place] [address] [place] [address] Dejon Capone MD Symptom of leg swelling (Primary Dx) 01/23/2024 9:00 AM EDT Office Visit [facility] [place] [address] [place], [place] [phone] Edema of both lower legs due to peripheral venous insufficiency (Primary Dx) 01/19/2024 2:00 PM EDT - 01/19/2024 11:59 PM EDT Hospital Encounter [facility] [place] [address] [address] [facility] [place] [address] Devaughn Paris MD Non-pressure chronic ulcer of right lower leg with fat layer exposed (HCC) (Primary Dx); Edema of both lower legs due to peripheral venous insufficiency; Non-pressure chronic ulcer of other part of left lower leg with fat layer exposed (HCC) Discharge Disposition: Home or Self Care 01/16/2024 Orders Only [facility] [place] [address] [place] [address] Michela Castañeda, RT Bilateral leg edema (Primary Dx) 01/09/2024 Refill [facility] [place] [address] [address] René [place] MD Medication Refill 01/09/2024 2:15 PM EDT Ancillary Procedure [facility] [place] [address] [place] [address] René Nicholas, PA-C Status post hip replacement, right 01/09/2024 2:00 PM EDT Office Visit [facility] [place] [address] [place] [phone] René Nicholas PA-C Status post hip replacement, right (Primary Dx) 01/07/2024 Travel 12/29/2023 Telephone [facility] [place] [address] [place] [address] Ame Chirinos RN Cancelled Appointment 12/27/2023 Orders Only [facility] [address] [facility] [address] [place] [address] Radha Cotton MD Vector Remote Device 12/27/2023 Travel 12/27/2023 12:30 PM EDT - 12/27/2023 2:50 PM EDT Surgery [facility] [address] [place] [address] René [place] MD TOTAL HIP ARTHROPLASTY/REPLACEM ENT-ANTERIOR OR REVISION ANTERIOR (CHELLY/KAUSHIK) 12/27/2023 12:16 PM EDT Anesthesia Event [facility] [address] [place] [address] Howard Acuña R, DO Record, Lanie [place]uga, SKY LINE YARDER 12/27/2023 10:44 AM EDT - 12/27/2023 7:04 PM EDT Hospital Encounter [facility] [address] [place] [phone] René Brown MD Discharge Disposition: Home or Self Care 12/26/2023 Orders Only [facility] [address] [facility] [address] [place] [address] Radha Cotton MD Vector Remote Device 12/25/2023 Travel 12/25/2023 2:45 PM EDT - 12/25/2023 11:59 PM EDT Hospital Encounter [facility] PRE-ADMIT TESTING [facility] [place] [address] 3, Edg Pat Nurse Preop testing (Primary Dx); Anticoagulation adequate Discharge Disposition: Home or Self Care 12/22/2023 Orders Only [facility] [place] [address] [place] [address] René [place] MD Osteoarthritis of one hip, right (Primary Dx) 12/22/2023 Telephone [facility] [address] [place] [address] René [place] MD Surgery Scheduling 12/22/2023 2:57 PM EDT - 12/22/2023 11:59 PM EDT Hospital Encounter [facility] [place] [address] [place] [address] Devaughn Paris MD Edema of both lower legs due to peripheral venous insufficiency (Primary Dx) Discharge Disposition: Home or Self Care 12/21/2023 Telephone [facility] [address] [place] [address] René Brown MD Other 12/20/2023 2:00 PM EDT Office Visit [facility] [address] [place] [address] Gabrielle Alexander, DPM Ingrowing nail (Primary Dx); Pyogenic granuloma of skin; Pain in toe of right foot 12/19/2023 Telephone [facility] [address] [place] [address] René Brown MD Other 12/15/2023 3:00 PM EDT - 12/15/2023 11:59 PM EDT Hospital Encounter [facility] W[facility] [place] [address] [place] [address] Dejon Capone MD Venous insufficiency (Primary Dx) Discharge Disposition: Home or Self Care 12/08/2023 2:30 PM EDT - 12/08/2023 11:59 PM EDT Hospital Encounter [facility] [place] [address] 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 [phone] Kayleen Turcios Follow-up 12/03/2023 [place] [address] Jona Chau MD Medication Refill 12/01/2023 Orders Only [facility] [address] [place], [place] [phone] Radha Cotton MD Vector Remote Device 12/01/2023 Telephone [facility] [address] [place] [address] René Brown MD Other 11/30/2023 [place] [address] Jona Chau MD Medication Refill 11/30/2023 2:30 PM EDT Office Visit [facility] [address] [place], [place] [phone] Funmi Aldrich APRN Paroxysmal atrial fibrillation (HCC) (Primary Dx); NSTEMI (non-ST elevated myocardial infarction) (HCC); 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; Ventricular fibrillation (HCC); single chamber ICD; Acute on chronic HFrEF (heart failure with reduced ejection fraction) (HCC); Hx of mitral valve replacement; NSVT (nonsustained ventricular tachycardia) (HCC) 11/30/2023 2:00 PM EDT Office Visit [facility] [address] [place] [phone] Evangelina Xiong, RN Presence of automatic cardioverter/defibril lator (AICD) (Primary Dx); Implantable defibrillator reprogramming/check; Paroxysmal atrial fibrillation (HCC); Cardiogenic shock (HCC); Ventricular fibrillation (HCC); Chronic systolic heart failure (HCC) 11/28/2023 11:59 PM EDT Anesthesia Event [facility] SURG[facility] [place] [phone] Mackenzie Irwin APRN 11/28/2023 1:00 PM EDT Office Visit [facility] [address] [place] [address] [place] [phone] Dejon Capone MD Bilateral leg edema (Primary Dx) 11/27/2023 Travel 11/24/2023 Orders Only [facility] [address] [place] [phone] René Brown MD Osteoarthritis of one hip, right (Primary Dx) 11/23/2023 Telephone [place] [address] Jona Chau MD Cardiology Clearance 11/23/2023 2:25 [place] [address] René Brown MD Osteoarthritis of one hip, right 11/23/2023 2:00 [place] [address] René Brown MD Osteoarthritis of one hip, right (Primary Dx) 11/21/2023 10:01 AM EDT - 11/21/2023 11:59 PM EDT Hospital Encounter [facility] [address] [place] [address] Alireza Clifton PA-C Venous stasis ulcer of right lower leg with edema of right lower leg (HCC) (Primary Dx); Venous insufficiency Discharge Disposition: Home or Self Care 11/14/2023 10:04 AM EDT - 11/14/2023 11:59 PM EDT Hospital Encounter [facility] [address] [place] [address] Alireza Clifton PA-C Venous stasis ulcer of right lower leg with edema of right lower leg (HCC) (Primary Dx); Venous insufficiency; Venous ulcer with fat layer exposed (HCC); Venous stasis ulcer of other part of right lower leg limited to breakdown of skin, unspecified whether varicose veins present (HCC); Contusion of lesser toe of left foot without damage to nail, initial encounter Discharge Disposition: Home or Self Care 11/07/2023 Telephone [facility] [place] [address] [place] [address] [place] [address] Harsha Hayward, Follow-up 11/07/2023 10:10 AM EDT - 11/07/2023 11:59 PM EDT Hospital Encounter [facility] [address] [place] [address] Alireza Clifton PA-C Venous stasis ulcer of other part of right lower leg limited to breakdown of skin, unspecified whether varicose veins present (HCC) (Primary Dx); Venous stasis ulcer of right lower leg with edema of right lower leg (HCC); Venous insufficiency; Venous ulcer with fat layer exposed (HCC) Discharge Disposition: Home or Self Care 11/01/2023 [place] [address] René Brown MD Other 10/31/2023 10:00 AM EDT - 10/31/2023 11:59 PM EDT Hospital Encounter [facility] [place] [address] [place] [address] Alireza Clifton PA-C Venous stasis ulcer of right lower leg with edema of right lower leg (HCC) (Primary Dx); Chronic venous hypertension (idiopathic) with ulcer and inflammation of right lower extremity (HCC); Venous insufficiency Discharge Disposition: Home or Self Care 10/23/2023 12:17 PM EDT - 10/23/2023 11:59 PM EDT Hospital Encounter [facility] [place] [address] [place] [address] Alireza Clifton PA-C Chronic venous hypertension (idiopathic) with ulcer and inflammation of right lower extremity (HCC) (Primary Dx); Venous stasis ulcer of right lower leg with edema of right lower leg (HCC); Venous ulcer with fat layer exposed (HCC); Chronic systolic heart failure (HCC); Paroxysmal atrial fibrillation (HCC) Discharge Disposition: Home or Self Care 10/19/2023 Refill [facility] [place] [phone] Jona Chau MD Medication Refill 10/17/2023 Telephone [facility] [address] [phone] Jona Chau MD Medication Question 10/17/2023 [place] [address] René Brown MD Other (cancel surgery) 10/17/2023 11:15 [place] [address] René Brown MD Open wound of right lower leg, initial encounter (Primary Dx); Osteoarthritis of one hip, right 10/12/2023 Telephone [facility] PRE-ADMIT TESTING [facility] [place] [address] Chanell Kothari, watch case polisher Clearance 10/11/2023 [place] [address] René Brown MD Other 10/11/2023 Travel 10/11/2023 Tele[place] [address] Jona Chau MD Cardiology Clearance 10/11/2023 12:45 PM EDT - 10/11/2023 11:59 PM EDT Hospital Encounter [facility] PRE-ADMIT TESTING [facility] 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 [address] Margarita Díaz, SHA Follow-up (HF) 10/04/2023 Tele[place] [address] Michelle De La O, RN Hospital Follow Up 10/04/2023 Patient Outreach [facility] [address] [place] [address] Latesha Friedman RN Hospital Follow Up; Care Transition 10/04/2023 11:59 PM EDT Anesthesia Event [facility] SURGERY [facility] [place] [address] Mackenzie Irwin, SKY LINE YARDER 10/03/2023 12:00 PM EDT - 10/03/2023 1:00 PM EDT Surgery [facility] PU[employer]ING 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 [address] Vinnie Crowell MD CORONARY ANGIOGRAM WITH GRAFTS / CARDIAC CATHETERIZATION 09/30/2023 2:09 PM EDT - 10/03/2023 6:27 PM EDT Hospital Encounter [place] [address] Amber Fuller MD Elliott, MD Juanita Degroot Deepthi, MD Chest pain, unspecified type (Primary Dx); Shortness of breath; Lower extremity edema Discharge Disposition: Home or Self Care 09/30/2023 Travel 09/25/2023 Orders Only [facility] [address] [place] [address] [address] [place] [phone] Radha Cotton MD Vector Remote Device 08/10/2023 Orders Only [facility] [address] [place] [phone] René Brown MD Osteoarthritis of one hip, right (Primary Dx) 08/10/2023 1:45 PM EST Office Visit [facility] [address] [place] [phone] René Brown MD Osteoarthritis of one hip, right (Primary Dx) 08/08/2023 Tele[place] [address] Jona Chau MD Medication Refill 07/31/2023 Orders Only [facility] [address] [address] Clara Barrett CMA 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 (Primary Dx); ASHD (arteriosclerotic heart disease); SOB (shortness of breath) 07/27/2023 1:02 PM EST - 07/27/2023 11:59 PM EST Hospital Encounter [facility] [address] [place] [address] [address] [place] [address] Jona Chau MD ASHD (arteriosclerotic heart disease); SOB (shortness of breath) Discharge Disposition: Home or Self Care 07/18/2023 Patient Outreach [facility] [address] [place] [phone] Gaye Stern MD Central Order Completion Outreach (Colon) 07/06/2023 2:15 PM EST Office Visit [facility] [place] [phone] Jona Chau MD ASHD (arteriosclerotic heart disease) (Primary Dx); SOB (shortness of breath) 06/26/2023 Orders Only [facility] [address] [place] [address] [address] [place] [address] Radha Cotton MD Vector Remote Device 06/26/2023 Telephone [facility] [address] [place] [address] [address] [place] [address] Evangelina Xiong, RN Results (Carelink results) 06/07/2023 Telephone [facility] [address] [address] Jona Chau MD Medication Refill (Transfer to [facility] patient Losartan) 05/31/2023 3:00 PM EST - 05/31/2023 11:59 PM EST Hospital Encounter [facility] [address] [address] Andreina Stephens APRN PAD (peripheral artery disease); Ulcer of right lower leg, with unspecified severity (HCC) Discharge Disposition: Home or Self Care 05/31/2023 2:00 PM EST - 05/31/2023 2:59 PM EST Hospital Encounter [facility] [address] [place] [address] Angelo Andreinapenny Meléndez APRN Non-pressure chronic ulcer of right lower leg, unspecified ulcer stage (HCC); Edema, unspecified type Discharge Disposition: Home or Self Care 05/18/2023 Orders Only [facility] [address] [place], [place] [phone] Gaye Stern MD Screening for cancer of the rectum; Screen for colon cancer 03/31/2023 Telephone [facility] [address] [place] [address] Gaye Stern MD Paperwork/forms (copies of xray and MRI ) 03/27/2023 Telephone [facility] [address] [facility] [address] [place] [phone] Chu Sr RN ICD Check (Remote results) 03/26/2023 Orders Only [facility] [address] [place] [address] [address] [place] [address] Radha Cotton MD Vector Remote Device 03/18/2023 Refill [facility] [place] [address] [place] [address] Jona Chau MD Medication Refill 02/20/2023 Orders Only [facility] [address] [place] [address] [place] [phone] Radha Cotton MD Vector Remote Device 02/20/2023 Telephone [facility] [address] [place] [address] [address] [place] [address] Chu Sr RN ICD Check (Remote results) 02/14/2023 Travel 02/14/2023 3:00 PM EDT - 02/14/2023 11:59 PM EDT Hospital Encounter [facility] [address] [place], [place] [phone] Right hip pain Discharge Disposition: Home or Self Care 01/19/2023 Orders Only [facility] [address] [facility] [address] [place] [phone] Radha Cotton MD Vector Remote Device 01/19/2023 Telephone [facility] [address] [place] [address] [place] [phone] Evangelina Xiong, RN Results 01/09/2023 1:45 PM EDT - 01/09/2023 11:59 PM EDT Hospital Encounter [facility] [address] [facility] [place] [phone] Louis Yadav MD Radiculopathy, unspecified spinal region (Primary Dx) Discharge Disposition: Home or Self Care 01/09/2023 Travel 01/09/2023 12:29 PM EDT - 01/09/2023 1:44 PM EDT Hospital Encounter [facility] [address] [place] [address] Louis Yadav MD Radiculopathy, lumbar region Discharge Disposition: Home or Self Care 12/26/2022 Telephone [facility] [address] [place] [phone] Evangelina Xiong, RN Results (Carelink results-) 12/25/2022 Orders Only [facility] [address] [place] [phone] Radha Cotton MD Vector Remote Device 12/19/2022 Telephone [facility] [address] [place] [phone] Radha Cotton MD Other (Medication refill- Metoprolol ER 100 mg ) 11/23/2022 3:00 PM EDT Office Visit [facility] [address] [place] [phone] Michela Abarca APRN Chronic systolic heart failure (HCC) (Primary Dx); Class 1 obesity due to excess calories without serious comorbidity with body mass index (BMI) of 33.0 to 33.9 in adult; Mitral valve disease; Paroxysmal atrial fibrillation (HCC); ICD (implantable cardioverter-defibril lator), single, in situ 11/23/2022 2:30 PM EDT Office Visit [facility] [phone] Chu Sr RN Implantable defibrillator reprogramming/check (Primary Dx); Ventricular fibrillation (HCC); Paroxysmal atrial fibrillation (HCC); Chronic systolic heart failure (HCC); ICD (implantable cardioverter-defibril lator), single, in situ 11/18/2022 Orders Only [facility] [address] [phone] Radha Cotton MD Vector Remote Device 11/18/2022 Telephone [facility] [address] [phone] Radha Cotton MD Other (MDT ICD beeping); Results (Device alert is not set to go off at 4 AM- only at 8 AM) 11/17/2022 Refill [facility] [address] [address] Jona Chau MD Medication Refill 11/15/2022 Orders Only [facility] [address] [phone] Radha Cotton MD Vector Remote Device 11/14/2022 Telephone [facility] [address] [phone] Nicole Jacobsen Other (Carelink monitor reset) 11/01/2022 Refill [facility] [address] [address] Jona Chau MD Medication Refill 10/27/2022 1:45 PM EDT Office Visit [facility] [address] [address] Jona Chau MD ASHD (arteriosclerotic heart disease) (Primary Dx) 10/25/2022 Orders Only [facility] [address] [facility] [address] [place] [address] Radha Cotton MD Vector Remote Device 10/25/2022 Telephone [facility] [address] [facility] [address] [place] [address] Radha Cotton MD Other 10/24/2022 Refill [facility] [place] [address] [place] [address] Jona Chau MD Medication Refill 09/26/2022 Telephone [facility] [address] [place] [address] [address] [place] [address] Nicole Jacobsen Other (Carelink report) 09/25/2022 Orders Only [facility] [address] [facility] [address] [place] [address] Radha Cotton MD Vector Remote Device 09/08/2022 Travel 09/08/2022 2:56 PM EST - 09/08/2022 11:59 PM EST Hospital Encounter [facility] [address] [place], [place] [phone] Dale Perry [facility] Carpal tunnel syndrome of left wrist (Primary Dx); Cervical radiculopathy Discharge Disposition: Home or Self Care 09/07/2022 Orders Only [facility] [address] [facility] [address] [place] [address] Alvarez Jaimes MD Cervical radiculopathy (Primary Dx) 07/20/2022 Patient Outreach [facility] [address] [place] [address] Gaye Stern MD Central Order Completion Outreach (Colon) 06/26/2022 Orders Only [facility] [address] [facility] [address] [place] [address] Radha Cotton MD Vector Remote Device 06/17/2022 Refill [facility] [place] [address] [place] [address] Jona Chau MD Medication Refill 05/18/2022 Telephone [facility] [address] [address] Jona Chau MD Follow-up 05/16/2022 Orders Only [facility] [address] [place] [address] Gaye Stern MD Screening for cancer of the rectum; Screen for colon cancer 05/13/2022 Refill [facility] [address] [place] [address] [address] [place] [address] Michela Abarca APRN Medication Refill 04/28/2022 1:45 PM EDT Office Visit [facility] [address] [address] Jona Chau MD ASHD (arteriosclerotic heart disease) (Primary Dx) 04/26/2022 Telephone [facility] [address] [place] [address] Gaye Stern MD Medication Management (pt requesting meds removed from med list) 04/26/2022 1:20 PM EDT Office Visit [place] [address] [place] [address] Helder Yung MD Pre-op examination (Primary Dx); Chronic systolic heart failure (HCC); PAD (peripheral artery disease); 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; Atypical nevus; Paroxysmal atrial fibrillation (HCC) 04/22/2022 Refill [facility] [address] [address] Jona Chau MD Medication Refill 04/20/2022 Telephone [facility] [address] [address] Jona Chau MD Cardiology Clearance (error) 03/25/2022 Orders Only [facility] [address] [place] [address] [address] [place] [address] Radha Cotton MD Vector Remote Device 03/04/2022 Travel 03/04/2022 2:50 PM EDT - 03/04/2022 11:59 PM EDT Hospital Encounter [facility] [address] [place] [address] Lumbar radiculopathy; Spinal stenosis, unspecified spinal region Discharge Disposition: Home or Self Care 02/08/2022 1:00 PM EDT Office Visit [facility] [address] [place] [address] [place] [phone] Chu Sr RN Encounter for implantable defibrillator reprogramming or check (Primary Dx); Cardiogenic shock (HCC); Ventricular fibrillation (HCC); Permanent atrial fibrillation (HCC); ICD (implantable cardioverter-defibril lator), single, in situ 02/08/2022 1:30 PM EDT Office Visit [facility] [address] [place] [address] [place] [phone] Radha Cotton MD ICD (implantable cardioverter-defibril lator), single, in situ (Primary Dx) 01/20/2022 Refill [facility] [address] [address] Jona Chau MD Medication Refill 12/23/2021 Orders Only [facility] [address] [place] [address] [place] [address] Radha Cotton MD Vector Remote Device 12/10/[address] [facility] [place] [address] [place] [address] Jona Chau MD Medication Refill 11/09/2021 Refill [facility] [address] [place] [address] [place] [phone] Michela Abarca APRN Medication Refill 10/27/2021 2:30 PM EDT Office Visit [facility] [address] [address] Jona Chau MD ASHD (arteriosclerotic heart disease) (Primary Dx) 10/26/2021 Travel 10/26/2021 12:03 PM EDT - 10/26/2021 11:59 PM EDT Hospital Encounter [facility] [address] [facility] [address] [place] [phone] Jona Chau MD S/P CABG x 2; SOB (shortness of breath) Discharge Disposition: Home or Self Care 10/15/2021 Travel 10/15/2021 12:23 PM EDT - 10/15/2021 11:59 PM EDT Hospital Encounter [facility] [address] [facility] [place] [address] Louis Yadav MD Radiculopathy, lumbar region Discharge Disposition: Home or Self Care 09/23/2021 9:00 AM EDT Clinical Support [facility] [address] [place] [address] [address] [place] [address] Nicole Jacobsen ICD (implantable cardioverter-defibril lator), single, in situ (Primary Dx); Ventricular fibrillation (HCC); NSVT (nonsustained ventricular tachycardia) (HCC) 08/20/2021 Travel 08/20/2021 10:15 AM EST Office Visit [facility] [place] [address] [place], [place] [phone] Jona Chau MD S/P CABG x 2 (Primary Dx); SOB (shortness of breath) 08/14/2021 Refill [facility] [address] [place] [address] [address] [place] [address] Michela Abarca APRN Medication Refill 07/20/2021 Orders Only [facility] [address] [place] [address] [address] [place] [address] Radha Cotton MD 07/14/2021 Orders Only [facility] [address] [place] [phone] Yasmeen Acosta, Penny Chronic pain of left knee (Primary Dx) 07/12/2021 Travel 07/12/2021 2:45 PM EST - 07/12/2021 11:59 PM EST Hospital Encounter [facility] [address], [place] [address] Gaye Stern MD Chronic pain of left knee; History of knee joint replacement Discharge Disposition: Home or Self Care 07/09/2021 Travel 07/09/2021 11:10 AM EST Office Visit [facility] [place] [address] [place] [phone] Gaye Stern MD Chronic pain of left knee (Primary Dx); History of knee joint replacement 07/06/2021 Refill [facility] [place] [address] Jona Chau MD Medication Refill 06/24/2021 Refill [facility] [address] [address] Luciano Chou MD Medication Refill 06/14/2021 Telephone [facility] [address] [place] [address] [place] [phone] Chu Sr RN ICD Check (remote results) 06/14/2021 Travel 06/14/2021 4:00 PM EST Clinical Support [facility] [address] [place] [address] [place] [phone] Chu Sr RN NSTEMI (non-ST elevated myocardial infarction) (HCC) (Primary Dx); Ventricular fibrillation (HCC); ICD (implantable cardioverter-defibril lator), single, in situ 06/10/2021 Travel 06/10/2021 2:20 PM EST Office Visit [facility] [address] [address] Luciano Chou MD Permanent atrial fibrillation (HCC) (Primary Dx); S/P CABG x 2; Dyslipidemia 05/14/2021 Refill [facility] [address] [place] [address] [place] [phone] Radha Cotton MD Medication Refill 05/14/2021 Refill [facility] [place] [address] [place] [address] Anders New MD Medication Refill; Medication Refill 02/24/2021 Travel 02/24/2021 1:30 PM EDT Office Visit [facility] [address] [place] [address] Althea Cole APRN Essential hypertension (Primary Dx); Chronic atrial fibrillation (HCC); Ischemic cardiomyopathy; S/P CABG x 2; Hx of mitral valve replacement 02/08/2021 Orders Only [facility] [address] [facility] [address] [place] [phone] Radha Cotton MD 02/08/2021 Telephone [facility] [address] [facility] [address] [place] [address] Chu Sr RN Other (remote alert) 02/05/2021 Travel 02/05/2021 2:00 PM EDT Office Visit [facility] [address] [facility] [address] [place] [phone] Radha Cotton MD ICD (implantable cardioverter-defibril lator) in place (Primary Dx); Encounter for implantable defibrillator reprogramming or check 01/28/2021 Telephone [facility] [address] [place] [address] Anders New MD Results 01/19/2021 Travel 01/19/2021 1:00 PM EDT - 01/19/2021 11:59 PM EDT Hospital Encounter [facility] [address] [place] [address] Anders New MD Hx of mitral valve replacement; Ischemic cardiomyopathy Discharge Disposition: Home or Self Care 12/11/2020 Refill [facility] [address] [place] [address] Anders New MD Medication Refill 11/27/2020 11:30 AM EDT Office Visit [place] [facility] Pod[facility]ry [place] [address] [facility] [address] [place] [address] Odilia Dumont, DPM Pain in toes of both feet (Primary Dx); Ingrown left big toenail; Abrasion of lesser toe of left foot, subsequent encounter 11/26/2020 Travel 11/26/2020 2:00 PM EDT Office Visit [facility] H&V [facility] [place] [address] [place] [address] Anders New MD Chronic atrial fibrillation (HCC) (Primary Dx); Hx of mitral valve replacement; Ischemic cardiomyopathy 11/09/2020 Telephone [facility] [address] [place] [phone] Evangelina Xiong RN Other (carelink results) 11/09/2020 9:00 AM EDT Clinical Support [facility] [address] [place] [phone] Evangelina Xiong, RN Ventricular fibrillation (HCC) (Primary Dx); ICD (implantable cardioverter-defibril lator) in place; Cardiogenic shock (HCC) 11/09/2020 Travel 11/06/2020 Travel 11/06/2020 2:30 PM EDT Office Visit [facility] Podiatry [address] [place] [address] Odilia Dumont, DPM Abrasion of lesser toe of left foot, initial encounter (Primary Dx); Pain in toes of both feet; Ingrown left big toenail 10/16/[address] [facility] [place] [address] [place] [address] Anders New MD Medication Refill 10/09/2020 Travel 10/09/2020 2:30 PM EDT Office Visit [facility] Podiatry [place] [address] [facility] [address] [place] [address] Odilia Dumont, DPM Abscess of second toenail of left foot (Primary Dx); Ingrowing toenail with infection; Pain in toes of both feet; Onychauxis; Abscess of second toenail of right foot; Ingrown left big toenail 09/25/2020 Travel 09/25/2020 Abstract [facility] H&V [facility] [place] [address] [place] [address] Anders New MD 09/25/2020 11:30 AM EDT Office Visit [facility] Podiatry [place] [address] [address] Odilia Dumont, DPM Pain in toes of both feet (Primary Dx); Ingrown left big toenail; Ingrowing toenail with infection; Abscess of second toenail of right foot; Abscess of second toenail of left foot; Onychauxis 09/18/2020 Travel 09/18/2020 3:00 PM EST Office Visit [facility] Podiatry [place] [address] [address] Odilia Dumont, DPM Pain in toes of both feet (Primary Dx); Ingrown left big toenail; Ingrowing toenail with infection; Abscess of second toenail of right foot; Abscess of second toenail of left foot; Onychauxis 09/11/2020 Travel 09/11/2020 2:00 PM EST Office Visit [facility] Podiatry [place] [address] [address] Odilia Dumont, DPM Ingrown left big toenail (Primary Dx); Ingrowing toenail with infection; Pain in toes of both feet; Abscess of second toenail of left foot; Abscess of second toenail of right foot 09/04/2020 Travel 09/04/2020 8:57 AM EST - 09/04/2020 11:59 PM EST Hospital Encounter [facility] [place] [address] Helder Yung MD PAD (peripheral artery disease); Open wound of left great toe, initial encounter Discharge Disposition: Home or Self Care 09/01/2020 Travel 09/01/2020 1:40 PM EST Office Visit [facility] [place] [address] [place] [address] Helder Yung MD PAD (peripheral artery disease) (Primary Dx); Open wound of left great toe, initial encounter; Ingrown toenail of left foot 08/31/2020 Travel 08/12/2020 Orders Only [facility] [place] [address] [place] [address] Helder Yung MD Hyperkalemia (Primary Dx) 08/11/2020 Travel 08/11/2020 1:20 PM EST Office Visit [facility] [place] [address] [place] [address] Helder Yung MD Encounter for Medicare annual wellness exam (Primary Dx); 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; Essential hypertension; Permanent atrial fibrillation (HCC); Screening for thyroid disorder; Encounter for screening for lipid disorder; Screening for metabolic disorder; Screening for iron deficiency anemia 08/10/2020 Telephone [facility] [address] [facility] [address] [place] [address] Evangelina Xiong RN Other (carelink results) 08/10/2020 Travel 08/08/2020 9:00 AM EST Clinical Support [facility] [address] [facility] [address] [place] [address] Evangelina Xiong RN Ventricular fibrillation (HCC) (Primary Dx); ICD (implantable cardioverter-defibril lator) in place 07/30/2020 Telephone [facility] [place] [address] [place] [address] Anders New MD Other 07/23/2020 Orders Only [place] [place] [address] [place] [address] Temi Isabel APRN Need for vaccination (Primary Dx) 07/23/2020 1:20 PM EST Clinical Support [facility] [place] [facility] [address] [place], [place] [address] Theodora Elizalde Essential hypertension; Ischemic cardiomyopathy 07/20/2020 Travel 07/20/2020 Telephone [facility] [place] [facility] [address] [place], [place] [address] Temi Isabel APRN Appointment Needed (Lab & Shingles Vaccine) 06/26/2020 Refill SEP H&V [facility] [address] [place] [address] Anders New MD Medication Refill 05/28/2020 Travel 05/28/2020 2:20 PM EST Office Visit [facility] H&V [facility] [address] [place] [address] Anders New MD Chronic atrial fibrillation (HCC) (Primary Dx); Essential hypertension; Ischemic cardiomyopathy 05/11/2020 Orders Only [facility]P H&V [facility] [address] [place] [address] Anders New MD PAF (paroxysmal atrial fibrillation) (HCC) (Primary Dx) 05/08/2020 Telephone [facility] [address] [facility] [address] [place] [address] Evangelina Xiong RN Other (carelink results) 05/08/2020 9:00 AM EDT Clinical Support [facility] [address] [facility] [address] [place] [address] Evangelina Xiong RN Ventricular fibrillation (HCC) (Primary Dx); ICD (implantable cardioverter-defibril lator) in place; Cardiogenic shock (HCC) 05/08/2020 Travel 04/22/2020 Travel 04/22/2020 1:20 PM EDT Clinical Support [place] [address] [place] [address] Theodora Elizalde Essential hypertension; Chronic atrial fibrillation (HCC); Hx of mitral valve replacement 04/20/2020 Travel 04/20/2020 Telephone [facility] [place] [address] Temi Isabel APRN Appointment Needed (lab) 03/09/2020 Refill SEP &V [address] [address] Andres New MD Medication Refill 02/07/2020 Travel 02/07/2020 1:00 PM EDT Office Visit [facility] [address] [place] [address] [address] [place] [address] Radha Cotton MD ICD (implantable cardioverter-defibril lator) in place (Primary Dx); Encounter for implantable defibrillator reprogramming or check 01/30/2020 Travel 01/30/2020 11:00 AM EDT Office [facility] [address] [address] Anders New MD Chronic atrial fibrillation (HCC) (Primary Dx); Hx of mitral valve replacement; Essential hypertension; S/P CABG x 2 01/07/2020 Telephone [facility] [place] [address] [place] [address] Temi Isabel APRN Medicare Annual Wellness 01/01/2020 Patient Outreach [facility] [address] [place] [address] Reena Benson RN Care Management - Chart Review 12/12/2019 Travel 12/12/2019 Telephone [facility] H&V [address] [address] Anders New MD Appointment Needed 12/05/2019 Travel 12/05/2019 9:40 AM EDT Office Visit [facility] [place] [address] [place] [address] [address] [place] [address] Helder Ariza MD S/P CABG x 2 (Primary Dx); Hx of mitral valve replacement 12/03/2019 Telephone [facility] [address] [place] [address] [address] [place] [address] Evangelina Xiong, RN Other (carelink results 6 wk check post op) 12/03/2019 2:30 PM EDT Clinical Support [facility] [address] [facility] [address] [place] [address] Evangelina Xiong RN Ventricular fibrillation (HCC) (Primary Dx); Cardiogenic shock (HCC) 12/03/2019 Travel 11/29/2019 Telephone [facility] [place] [facility] [address] [place] [address] [address] [place] [address] Alethea Garcia, Clerical Staff Cardiac Rehab (Referral) 11/29/2019 Travel 11/29/2019 10:00 AM EDT - 11/29/2019 11:59 PM EDT Hospital Encounter [facility] E[facility] [place], [place] [id number] Helder Ariza MD SOB (shortness of breath) Discharge Disposition: Home or Self Care 11/27/2019 Travel 11/23/2019 Refill [facility] H[facility] [place] [address] [place] [address] Aga Stanley APRN Medication Refill 11/14/2019 Travel 11/14/2019 Orders Only [facility] Cardiac Surgeons [address] [place] [address] Helder Ariza MD SOB (shortness of breath) (Primary Dx) 11/14/2019 10:40 AM EDT Office Visit [facility] Card[facility] Surgeons [address] [place] [address] Helder Ariza MD S/P CABG x 2 (Primary Dx); Hx of mitral valve replacement 11/13/2019 Patient Outreach [facility] [address] [place] [address] Reena Benson RN Cm- Transitional Care Continued 11/13/2019 Telephone [facility] Card[facility] Surgeons [address] [place] [address] Helder Ariza MD Other (pre registeration ) 11/08/2019 Travel 11/07/2019 Travel 11/07/2019 8:40 AM EDT Telemedicine [facility] Surgeons [address] [place] [address] Helder Ariza MD Hx of mitral valve replacement; S/P CABG x 2 11/06/2019 Lab Requisition [facility] [place], [place] [phone] Dejon Yung MD Atherosclerotic heart disease of [place] coronary artery with unspecified angina pectoris 11/05/2019 Telephone [facility] [place] [facility] [address] [place] [address] [address] [place], [place] [phone] Alethea Garcia, Clerical Staff Cardiac Rehab (Referral) 11/05/2019 Orders Only [facility] [place] [facility] [address] [place] [address] [address] [place], [place] [id number] Alethea Garcia, Clerical Staff S/P CABG (coronary artery bypass graft) (Primary Dx) 11/01/2019 Telephone [facility] [address] [place] [address] Temi Isabel APRN Orders 10/31/2019 Telephone [facility] [address] [place] [address] [address] [place] [address] Chu Sr, RN Other (post op incision check) 10/31/2019 Travel 10/31/2019 Patient Outreach [facility] [address] [place] [address] Reena Benson, SHA Hospital Follow Up; Cm- Transitional Care Initiation; CM- Telephonic Outreach; CM-Medication Assistance; CM-Resource Coordination 10/30/2019 Orders Only [facility] Surgeons [address] [place] [address] Helder Ariza MD S/P CABG (coronary artery bypass graft) (Primary Dx) 10/15/2019 2:55 PM EDT - 10/30/2019 12:50 PM EDT Hospital Encounter [facility] [place] [address] Anders New MD Kmety, Jamie, MD Locher, James P, MD Chest pain; Chest pain, unspecified type; ST elevation myocardial infarction (STEMI), unspecified artery (HCC); Coronary artery disease involving [place] heart with angina pectoris, unspecified vessel or lesion type; Cardiac arrhythmia; Cardiac arrhythmia, unspecified cardiac arrhythmia type Discharge Disposition: Home or Self Care 10/27/2019 Orders Only [facility] [address] [facility] [address] [place] [address] Radha Cotton MD 10/22/2019 Travel 10/22/2019 Orders Only [facility] [address] [facility] [address] [place] [address] Radha Cotton MD 10/21/2019 Travel 10/21/2019 11:54 AM EDT Anesthesia Event [facility] [employer] [place] [address] Garfield [place] MD Powell, Jeanne, APRN 10/21/2019 11:45 AM EDT - 10/21/2019 1:15 PM EDT Surgery [facility] [facility] [facility] [place] [address] Radha Cotton MD INTERNAL CARDIOVERTER DEFIBRILLATOR (ICD) IMPLANT 10/17/2019 10:31 AM EDT Anesthesia Event [facility] PERIOP [facility] [place] [address] Nandini Amador MD Zimmermann, Anthony G, MD 10/17/2019 11:15 AM EDT - 10/17/2019 6:05 PM EDT Surgery [facility] [place] [address] Helder Ariza MD CORONARY ARTERY BYPASS GRAFT 10/17/2019 7:46 AM EDT - 10/17/2019 8:46 AM EDT Surgery [facility] 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 [address] Anders New MD EMERGENT CORONARY ANGIOGRAM 10/15/2019 Travel 10/15/2019 3:00 PM EDT - 10/15/2019 4:00 PM EDT Surgery [facility] 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 [address] Anders eNw MD LEFT HEART CATHETERIZATION 10/12/2019 2:19 PM EDT - 10/15/2019 2:24 PM EDT Hospital Encounter [facility] [address] [place] [address] Louis Cassidy MD Renard, Cruff, MD Right-sided chest pain (Primary Dx); Elevated troponin; Shortness of breath; Suspected COVID-19 virus infection; Atrial fibrillation, unspecified type (HCC) Discharge Disposition: Discharge/Readmit 10/14/2019 Travel 10/12/2019 Travel 10/12/2019 Telephone [facility] H&V [place] [address] [facility] [address] [place] [address] Vee Cervantes APRN Shortness of Breath 09/09/2019 Travel 09/09/2019 9:20 AM EST Office Visit [facility] H&V [address] [address] Anders New MD Chronic atrial fibrillation (HCC) (Primary Dx); Essential hypertension 08/12/2019 Refill SEP &V [address] [address] Anders New MD Medication Refill 07/19/2019 Telephone [facility] H&V [address] [address] Anders New MD Reschedule 04/09/2019 1:20 PM EDT Office Visit [facility] [address] [place] [address] Temi Isabel APRN Annual physical exam (Primary Dx); Paroxysmal atrial fibrillation (HCC); Class 1 obesity due to excess calories without serious comorbidity with body mass index (BMI) of 33.0 to 33.9 in adult; DDD (degenerative disc disease), cervical; Essential hypertension; Low testosterone; Mitral valve disease; Screening for thyroid disorder; Screening for deficiency anemia; Screening for hyperlipidemia; Positive colorectal cancer screening using Cologuard test; Chronic pain of left knee; History of left knee replacement 04/01/2019 Telephone [facility] [address] [place] [address] Dior Ceron RN Results (Cologuard Results. ) 03/28/2019 Patient Outreach PSYCHIATRIC [address] [place] [address] Temi Isabel APRN Medicare Annual Wellness (Annual Wellness Questionnaire) 02/20/[address] [place] [address] Temi Isabel APRN Visit Follow Up 02/11/2019 Telephone [facility] H&[facility] [address] [place] [address] Anders New MD Appointment Needed 02/06/2019 Refill [facility]&[address] [address] Aga Stanley APRN Medication Refill 11/08/[address] [facility] [address] [facility] [place] [place] [address] Temi Isabel APRN Screening for colon cancer; Screening for cancer of the rectum 05/21/2018 8:00 AM EST Clinical Support [facility] [address] [place] [address] Theodora Elizalde Hyperglycemia (Primary Dx); Annual physical exam; Screening for prostate cancer; Screening for deficiency anemia; Screening for diabetes mellitus; Screening for thyroid disorder; Low testosterone 05/08/2018 2:20 PM EDT Clinical Support [facility] [place] [address] [place] [address] Theodora Elizalde Low testosterone (Primary Dx) 05/07/[address] [place] [address] Temi Isabel APRN Medication Refill 04/06/2018 1:20 PM EDT Clinical Support [facility] [address] [place] [address] Theodora Elizalde Low testosterone 04/02/[address] [place] [address] Temi Isabel APRN Medication Refill 03/08/2018 1:20 PM EDT Clinical Support [address] [place] [address] Theodora Elizalde Low testosterone (Primary Dx) 02/27/2018 10:00 AM EDT Office Visit [address] [place] [address] Temi Isabel APRN Annual physical exam (Primary Dx); Ulnar neuropathy at elbow, right; Essential hypertension; DDD (degenerative disc disease), cervical; Paroxysmal atrial fibrillation (HCC); Screening for colon cancer; Screening for thyroid disorder; Screening for diabetes mellitus; Screening for hyperlipidemia; Chronic bilateral low back pain without sciatica; Screening for deficiency anemia; Screening for prostate cancer; Low testosterone 02/07/2018 9:30 AM EDT Office Visit [address] [address] Aga Stanley APRN Essential hypertension (Primary Dx); Chronic atrial fibrillation (HCC); Class 1 obesity due to excess calories without serious comorbidity with body mass index (BMI) of 33.0 to 33.9 in adult 02/05/2018 1:20 PM EDT Clinical Support [address] [place] [address] Theodora Elizalde Low testosterone (Primary Dx) 02/02/[address] [place] [address] Temi Isabel APRN Medication Management 02/02/[address] [place] [address] Temi Isabel APRN Medication Refill 01/22/[address] [address] Anders New MD Appointment Needed 01/18/2018 Refill [facility] H&V [address] [address] Anders New MD Medication Refill 01/18/2018 Refill [facility]&[address] [place] [address] Anders New MD Medication Refill 01/05/2018 1:40 PM EDT Clinical Support [address] [place] [address] Theodora Elizalde Low testosterone (Primary Dx) 01/02/[address] [place] [address] Temi Isabel APRN Medication Management 12/19/2017 Refill [facility]&[address] [address] Anders New MD Medication Refill 2017 2:40 PM EDT Clinical Support [address] [place] [address] Theodora Elizalde Low testosterone (Primary Dx) 11/28/2017 11:00 AM EDT Office Visit [address] [place] [address] Temi Isabel APRN Low testosterone (Primary Dx); Chronic atrial fibrillation (HCC); DDD (degenerative disc disease), lumbar; DDD (degenerative disc disease), cervical; Essential hypertension 11/20/2017 Patient Outreach [address] [place] [address] Lela Torres, GENERAL OFFICE DISPATCHER Follow-Up Call; Care Transition; Care Management - Chart Review 11/17/2017 8:28 PM EDT - 11/17/2017 11:05 PM EDT Emergency [address] [facility] [place] [address] Radha Fitzpatrick MD Laceration of left lower extremity, initial encounter (Primary Dx) Discharge Disposition: Home or Self Care 09/25/2017 2:15 PM EDT - 09/25/2017 11:59 PM EDT Hospital Encounter [facility] [address] [place] [address] Phu Schroeder MD Lumbago-sciatica due to displacement of lumbar intervertebral disc Discharge Disposition: Home or Self Care 08/02/2017 8:30 AM EST Clinical Support [facility] [address] [place] [address] Trinity Irwin CCMA Male hypogonadism (Primary Dx) 06/23/2017 Refill [facility] H&V [facility] [place] [address] [facility] [place] [address] Anders New MD Medication Refill 06/22/2017 Telephone [facility] H[facility] [place] [address] [facility] [place] [address] Anders New MD Cardiology Clearance 06/22/2017 Telephone [facility] [address] [place], [place] [address] Temi Isabel APRN Other 06/21/2017 Orders Only [facility] [address] [place], [place] [address] Temi Isabel APRN Chronic atrial fibrillation (HCC) (Primary Dx) 06/21/2017 11:00 AM EST - 06/21/2017 11:59 PM EST Hospital Encounter [facility] E[facility] [address] [place] [phone] Chronic atrial fibrillation (HCC); Mitral valve disease; Pre-op examination Discharge Disposition: Home or Self Care 06/21/2017 8:00 AM EST Office Visit [facility] [address] [place] [address] Temi Isabel APRN Pre-op examination (Primary Dx); Essential hypertension; Chronic atrial fibrillation (HCC); Mitral valve disease; Ulnar neuropathy at elbow, right 05/11/2017 2:30 PM EDT Office Visit [facility] Urgent [facility] [address] [place] [phone] Shannan Guevara APRN Wrist sprain, left, initial encounter (Primary Dx); Injury of left hand, initial encounter; Fall, initial encounter 04/25/2017 11:13 AM EDT - 04/25/2017 11:59 PM EDT Hospital Encounter [facility] LAB[facility] [place] [address] Essential hypertension; Screening for deficiency anemia Discharge Disposition: Home or Self Care 04/25/2017 10:15 AM EDT - 04/25/2017 11:12 AM EDT [facility] 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); Carpal tunnel syndrome of left wrist; Cervical radiculopathy Discharge Disposition: Home or Self Care 04/24/2017 Telephone SEP H&V [facility] Vw [address] [place] [address] Anders New MD Medication Refill 03/24/2017 Refill SEP &V [facility] Vw [address] [place] [address] Anders New MD Medication Refill 02/27/2017 1:00 PM EDT Office Visit [facility] [place] [address] [place] [phone] Temi Isabel APRN Well adult exam (Primary Dx); DDD (degenerative disc disease), cervical; DDD (degenerative disc disease), lumbar; Mitral valve disease; Essential hypertension; Paroxysmal atrial fibrillation (HCC); Screening for hyperlipidemia; Screening for deficiency anemia; Encounter for screening for nutritional disorder; Screening for colon cancer 01/23/2017 Refill [facility] [address] [place] [phone] Anders New MD Medication Refill 01/16/2017 11:21 AM EDT - 01/16/2017 11:59 PM EDT Hospital Encounter [facility] ECHO [address] [place] [address] Anders New MD Chronic atrial fibrillation (HCC); Mitral valve disease Discharge Disposition: Home or Self Care 11/30/2016 1:30 PM EDT Office Visit [facility] H&V [facility] [address] [place] [address] Anders New MD Chronic atrial fibrillation (HCC) (Primary Dx); Essential hypertension; Mitral valve disease 11/28/2016 Refill [facility] H&V [facility] [address] [place] [address] Anders New MD Medication Refill 08/25/2016 Refill [facility] H&V [facility] [address] [place] [phone] Anders New MD Medication Refill 01/25/2016 Refill [facility] H&[facility] [address] [place] [address] Anders New MD Medication Refill 12/18/2015 Telephone [facility] H&V [facility] [address] [place] [address] Anders New MD Cardiology Clearance (Left Total Knee Replacement) 11/12/2015 2:20 PM EDT Office Visit SEP H&V NPTFTT [address] [place] [address] Anders New MD Chronic atrial fibrillation (HCC) (Primary Dx); Essential hypertension 11/03/2015 Telephone [facility] H&V [facility] [address] [place] [address] Anders New MD Note 10/28/2015 Refill [facility] H&V [facility] [address] [place] [address] Anders New MD Medication Refill 06/19/2015 Refill [facility] [place] [address] [place] [address] Anders New MD Medication Refill 06/15/2015 2:00 PM EST Office Visit [facility] [address] [place] [address] Halley Mitchell APRN Chronic atrial fibrillation (HCC) (Primary Dx); Essential hypertension 06/10/2015 Telephone [facility] [place] [address] [place] [address] Anders New MD Other 05/19/2015 Refill [facility] [phone] Anders New MD Medication Refill 12/29/2014 Telephone [facility] [phone] Anders New MD Visit Follow Up 12/22/2014 1:30 PM EDT Office Visit [facility] [address] [phone] Anders New MD Chronic atrial fibrillation (HCC) (Primary Dx); Essential hypertension; Mitral valve disease 12/11/2014 Refill [facility] [phone] Anders New MD Medication Refill 11/14/2014 Refill [facility] [phone] Anders New MD Medication Refill 11/14/2014 Refill [facility] [phone] Anders New MD Medication Refill 07/08/2014 Refill [facility] [phone] Anders New MD Medication Refill 06/18/2014 Telephone [facility] [place] [address] [facility] [place] [address] Anders New MD Appointment Needed 06/04/2014 Refill [facility] [address] [facility] [place] [address] Anders New MD Medication Refill 05/30/2014 Telephone [facility] [place] [address] [facility] [place] [address] Anders New MD Cardiology Clearance 04/15/[address] [facility] [address] [facility] [place] [address] Anders New MD Medication Refill 02/26/2014 Telephone [facility] [address] [facility] [place] [address] Anders New MD Cardiology Clearance 02/26/2014 2:15 PM EDT - 02/26/2014 3:30 PM EDT Surgery [facility] PERIOP [address] [place] [address] Ronaldo Briceno MD CARPAL TUNNEL RELEASE ENDOSCOPIC 02/26/2014 12:32 PM EDT - 02/26/2014 4:13 PM EDT Hospital Encounter [facility] SAME DAY SURGERY [address] [place] [address] Ronaldo Briceno MD Discharge Disposition: Home or Self Care 02/25/2014 10:30 AM EDT - 02/25/2014 11:59 PM EDT Hospital Encounter [facility] PRE-ADMIT TESTING [address] [place] [address] Pat, Ftt Preoperative examination, unspecified (Primary Dx); Cubital tunnel syndrome on right Discharge Disposition: Home or Self Care 02/03/2014 12:57 PM EDT - 02/03/2014 11:59 PM EDT Hospital Encounter [facility] [address] [place] [address] Alvarez Jaimes MD Shoulder pain Discharge Disposition: Home or Self Care 01/27/2014 Refill [facility] [address] [place] [address] Anders New MD Medication Refill 01/13/2014 3:19 PM EDT - 01/13/2014 11:59 PM EDT Hospital Encounter [facility] MRI [address] [place] [address] Alvarez Jaimes MD Brachial neuritis or radiculitis NOS Discharge Disposition: Home or Self Care 12/10/2013 2:41 PM EDT - 12/10/2013 11:59 PM EDT Hospital Encounter [facility] [address] [place] [address] Anders New MD Atrial fibrillation (HCC) Discharge Disposition: Home or Self Care 11/21/2013 4:00 PM EDT [facility] [address] [place] [address] Anders New MD Atrial fibrillation (HCC) (Primary Dx); HTN (hypertension); Mitral valve disease 11/15/2013 Refill [facility] [address] [place] [address] Anders New MD Medication Refill 09/16/2013 Refill [facility] [address] [place] [address] Anders New MD Medication Refill 05/14/2013 Refill [facility] [address] [place] [address] Anders New MD Medication Refill 04/22/2013 Telephone [facility] [address] [place] [address] Anders New MD Appointment Needed 04/11/[address] [place] [address] Anders New MD Medication Refill 08/30/[address] [place] [address] Anders New MD Medication Refill 08/17/[address] [phone] Anders New MD Medication Refill 07/04/2012 12:03 PM EST - 07/04/2012 11:59 PM EST Hospital [place] [address] Anders New MD A-fib ([facility]); HTN (hypertension) Discharge Disposition: Home or Self Care 07/04/2012 1:00 PM [place] [address] Anders New MD Atrial fibrillation ([facility]) (Primary Dx); HTN (hypertension); Mitral valve disease 06/28/[address] [place] [address] Anders New MD 05/21/2012 Orders Only [address] [phone] Anders New MD A-fib ([facility]); HTN (hypertension) 04/16/2012 Orders Only [address] [address] Estrella Fernandes RMA A-fib ([facility]); HTN (hypertension) 04/16/[address] [phone] Anders New MD Medication Refill 09/02/2011 12:00 PM EST - 09/02/2011 12:42 PM EST Surgery [facility] [address] [place] [address] Yuli Fermin MD KNEE ARTHROSCOPY MENISCECTOMY/REPAIR (ALSO COVERS ARTHROSCOPIC INCISION AND DRAINAGE/DEBRIDEMENT) 09/02/2011 10:59 AM EST - 09/02/2011 4:07 PM EST Hospital Encounter [facility] [address] [place] [address] Yuli Fermin MD Discharge Disposition: Home or Self Care 08/31/2011 3:30 PM EST - 08/31/2011 11:59 PM EST Hospital Encounter [facility] LABORATORY [address] [place] [place] [address] Pre-operative cardiovascular examination, high risk surgery Discharge Disposition: Home or Self Care 08/31/2011 3:15 PM EST - 08/31/2011 3:29 PM EST Hospital Encounter [facility] EKG [address] [place] [address] IUD check up Discharge Disposition: Home or Self Care 08/15/2011 Refill [facility] [place] [facility] [address] [place] [address] Anders New MD Medication Refill 08/10/2011 4:35 PM EST - 08/10/2011 11:59 PM EST Hospital Encounter ED[facility] LAB BALA PROCESSING [facility] [place] [address] Joint pain Discharge Disposition: Home or Self Care 04/18/2011 3:00 PM EDT - 04/18/2011 11:59 PM EDT Hospital Encounter [facility] MRI [address] [place] [address] Yuli Vogel MD Lumbago Discharge Disposition: Home or Self Care 11/06/2010 11:04 PM EDT - 11/10/2010 4:30 PM EDT Hospital Encounter [facility] 7D ORTHO [facility] [place] [address] Veronique Rehman MD Larkin, John J, MD Closed fracture of olecranon process of ulna; Closed fracture of multiple ribs, unspecified; Open wound of elbow, complicated Discharge Disposition: Home Health Care [facility] 11/07/2010 1:00 PM EDT - 11/07/2010 3:00 PM EDT Surgery EDG PERIOP [facility] [place] [address] Yuli Fermin MD ELBOW ARTHROTOMY 07/19/2010 1:02 PM EST - 07/19/2010 11:59 PM EST Hospital Encounter [facility] VASCULAR LAB [facility] [place] [address] Sushil Reid Leg pain Discharge Disposition: Home or Self Care 05/05/2010 3:30 PM EDT - 05/05/2010 11:59 PM EDT Hospital Encounter ED[facility] D-WING XRAY [facility] [place] [address] Fall Discharge Disposition: Home or Self Care 10/27/2009 Orders Only [facility] [facility] [address] [place] [address] Scottie Elkins MD 10/19/2009 3:12 PM EDT - 10/19/2009 3:58 PM EDT Emergency HST EPIC CON UNK COV [facility], [facility] Emergency Josep Krueger MD 05/22/2009 12:01 AM EST - 05/22/2009 11:59 PM EST Hospital Encounter HST EPIC CON UNK EDG Alvarez Jaimes MD 01/19/2009 11:21 AM EDT - 01/19/2009 11:59 PM EDT Hospital Encounter HST IMAGING DREW EDG Alvarez Jaimes MD 11/06/2008 Orders Only [facility] [address] [place] [address] Arnulfo Sequeira MD 12/23/2007 12:46 AM EDT - 12/23/2007 3:44 AM EDT Emergency HST ER THANIA Generic, Historical Provider 12/12/2007 12:01 AM EDT - 12/12/2007 11:59 PM EDT Hospital Encounter HST EMG EDG Cezar Silva MD 01/31/2007 12:04 PM EDT - 01/31/2007 1:15 PM EDT Hospital Encounter HST CCR Anders New MD 06/09/2006 12:01 AM EST - 07/09/2006 11:59 PM EST Hospital Encounter HST LAB EDG Anders New MD 05/23/2006 4:28 PM EST - 06/08/2006 11:59 PM EST Hospital Encounter HST LAB EDG Anders New MD 05/19/2006 Hospital Encounter HST MEDICINE [facility] Generic, Historical Provider 05/11/2006 4:01 PM EST - 05/11/2006 11:59 PM EST Hospital Encounter HST LAB EDG Tim Mitchell MD 03/30/2006 Hospital Encounter HST PHYS MED & SAV[facility]NA[facility] FTT Generic, Historical Provider 01/16/2003 6:45 AM EDT - 01/16/2003 11:59 PM EDT Hospital Encounter HST EMG EDG Yuli Vogel MD 08/22/2002 Hospital Encounter HST MEDICINE [facility]TT Generic, Historical Provider 05/31/2002 11:37 AM EST - 05/31/2002 2:00 PM EST Emergency HST EPIC CON UNK COV Yevtte Piña MD 11/21/2000 3:32 AM EDT - 11/21/2000 2:55 PM EDT Hospital Encounter HST ESDS FTT Generic, Historical Provider 11/02/1999 11:06 AM EDT - 11/03/1999 5:47 PM EDT Hospital Encounter HST TCU Spring Varma MD Service, 01/10/1999 6:37 PM EDT - 01/10/1999 7:48 PM EDT Emergency HST MINOR ER EDG Odilia Allred DO 04/21/1997 10:14 PM EDT - 04/21/1997 11:59 PM EDT Emergency HST EPIC CON UNK COV Lavon Anaya MD 11/03/1995 9:59 AM EDT - 11/03/1995 11:59 PM EDT Hospital Encounter HST EPIC CON UNK EDG Yuli Quiroz MD 12/11/1993 1:31 AM EDT - 12/11/1993 11:59 PM EDT Emergency HST EPIC CON UNK COV Louie Abad MD 09/01/1993 1:25 AM EST - 09/02/1993 7:38 PM EST Hospital Encounter HST 2C Maxwell Cisneros MD 08/27/1993 8:24 AM EST - 08/27/1993 11:59 PM EST Hospital Encounter HST EPIC CON UNK EDG Maxwell Cisneros MD 04/05/1993 6:23 AM EDT - 04/05/1993 11:59 PM EDT Hospital Encounter HST EPIC CON UNK EDG Ralph Reyna 03/29/1993 6:04 AM EDT - 03/29/1993 11:59 PM EDT Hospital Encounter HST EPIC CON UNK EDG Ralph Reyna 03/26/1993 9:30 AM EDT - 03/26/1993 10:10 AM EDT Hospital Encounter HST 4CS Ralph Reyna 03/14/1992 9:44 AM EDT - 03/14/1992 11:59 PM EDT Emergency HST EPIC CON UNK COV Fredy Ceron MD Allergies Active Allergy Reactions Criticality Noted Date Comments Codeine Other (See Comments) Low 06/15/2015 Patient states that the medication causes him to become constipated Milk Nausea Only Low 10/15/2019 Medications aspirin 81 mg Oral Tablet, Chewable Take 1 Tablet by mouth daily. 30 Tablet 11 4 Active glucosamine-chondro itin 500-400 mg Oral Tablet Take 1 Tablet by mouth 2 times daily. Active ELIQUIS 5 mg Oral Tablet TAKE 1 TABLET ORALLY TWICE DAILY 180 Tablet 1 4 Active gabapentin (NEURONTIN) 300 mg Oral CapsuleIndications: Lumbar foraminal stenosis,Lumbar spondylosis,Degener ation of intervertebral disc of lumbar region with discogenic back pain,Lumbar pain,Myofascial pain Take 1 Capsule by mouth 2 times daily. 60 Capsule 4 4 Active torsemide (DEMADEX) 20 mg Oral TabletIndications:A SHD (arteriosclerotic heart disease),SOB (shortness of breath) TAKE 1 TABLET BY MOUTH EVERY DAY 100 Tablet 2 4 Active losartan (COZAAR) 50 mg Oral Tablet TAKE 1 AND 1/2 TABLETS DAILY BY MOUTH 150 Tablet 2 4 Active atorvastatin (LIPITOR) 40 mg Oral TabletIndications:A SHD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 5:37 AM EDT ECG AND WAVEFORMS - TELEMETRY Routine 10/13/2019 7:29 PM EDT HEPARIN ANTI-XA, UNF Timed 10/13/2019 4:31 PM EDT IP CONSULT TO CARDIOLOGY STAT 10/13/2019 9:56 AM EDT Procedure Note - Delicia Ramesh MD - 10/13/2019 10:29 AM EDTThis note is in progress. 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 New Reason for consult: elevated troponin's History provided by: RN, chart review History limited by: pt currently r/o for COVID-19 HPI: 63 yo male, former smoker, w hx of: Afib HTN Chronic pain syndrome Pt presented to the ED with complaints of chest pain. Per chart review ptreported chest pain that began yesterday he described as right sidedtightness radiating into his right arm. Spoke w nursing this am shereports pt continuing to have chest pain worse with breathing andreproducible on exam. Heparin gtt started. Pain is not relieved w nitro.Pt was febrile on arrival to the ED. Currently on 2L NC. Past Medical History Past Medical History: Diagnosis Date Arthritis all over, hands, neck, spine, knee Atrial fibrillation (HCC) Echo 12/10/2013: LVEF 55-60%. Mild CLVH. Mod right ventricular dilatation.Right ventricular hypokinesis. Mod right and left atrial dilatation. Traceto mild MR. Mod TR. RVSP estimated at 30 mmHg. Aortic root is dilated at4.4 cm Cardiac dysrhythmia, unspecified A fib comes and goes Cervical neck pain with evidence of disc disease DDD (degenerative disc disease), lumbar Hypertension Neuromuscular disorder (HCC) nerve damage form back injury Other and unspecified angina pectoris 08/27/11 takes cardizem for angina Spinal headache 07/10/1993 ct scan with dye and had bad headache Medication aspirin 325 mg Oral Daily bisoprolol 10 mg Oral Daily dilTIAZem 120 mg Oral Daily flu vac qv 2018(18yr up)rc(PF) 0.5 mL Intramuscular ONCE nitroGLYCERIN 1 Inch Topical 4 times per day heparin (porcine) 1,500 Units/hr (10/13/19 1021) acetaminophen OR acetaminophen, cyclobenzaprine, oxyCODONE, sodiumchloride 0.9%, sodium chloride 0.9% Past Surgical History Past Surgical History: Procedure Laterality Date CARPAL TUNNEL RELEASE Right 2014 CERVICAL SPINE SURGERY 1993, 2007, 2009 fused c3,4,5, ELBOW SURGERY 11/07/2010 reattached ligaments and removed gravel from left elbow [place]BOW SURGERY [place] EYE SURGERY 1980's right eye socket surgery KNEE ARTHROSCOPY 09/02/2011 LEFT KNEE ARTHROSCOPY DEBRIDEMENT MEDIAL MENISCUS MENISCECTOMYCHONDROPLASTY OSTEOCHONDRAL AUTOGRAFT TRANSPORT SYSTEM PROCEDURE.;Surgeon: Yuli Fermin MD; Location: [facility]; Service:Orthopedics KNEE ARTHROSCOPY Left 12/28/2015 ORTHOPEDIC SURGERY Allergy Allergies Allergen Reactions Codeine Constipation Milk Nausea Only Family History Family History Problem Relation Age of Onset Alcohol Abuse Sister Social History Social History Tobacco Use Smoking status: Former Smoker Packs/day: 1.50 Years: 15.00 Pack years: 22.50 Types: Cigarettes Last attempt to quit: 07/10/1999 Years since quittin.2 Smokeless tobacco: Never Used Substance Use Topics Alcohol use: Yes Alcohol/week: 15.0 oz Types: 25 Cans of beer per week Comment: couple beers daily Review of Systems LETTY Objective: Telemetry: Afib 10/13/2019 Last BP: BP: 129/78 Last pulse: Pulse: 95 Last resp: Resp: 18 Last temp: Temp: 98.6 F (37 C) Last SpO2: SpO2: 95 % Exam: Did not physically see pt w current COVID-19 precautions/rule out Diagnostic tests Pertinent laboratory test have been reviewed The most recent cardiovascular imaging studies availabe in [employer] EMR werereviewed at time of consultation Assessment & Plan There are no active hospital problems to display for this patient. Elevated troponin/Chest pain -per nursing reproducible on exam, pleuritic components -hs trop 1667, 1645, 1959 -EKG appears stable from prior-Afib -heparin gtt Afib -permanent -bisoprolol, diltiazem -pt refuses OAC per outpt cardiology note -325mg asa HTN -controlled -BB, CCB, lisinopril Chronic pain syndrome/DDD Plan: Elevated troponin's w associated chest pain-possibly pleuritic? Will r/oacute PE. Can consider further ischemic testing if negative. Cont current cardiac home meds Case discussed w Dr. Ramesh Thank you for the consult. We will follow with you. Amber Valverde APRN I have reviewed all the pertinent history, laboratory and radiologystudies. I have reviewed the history, and plan as outlined above. Patient was not personally examined given critical shortage of PPE andlimiting providers in the room Mr ceron presenting with 2 days hx of chest pain, SOB, cough, fever From notes has some pleuritic pain Has been out but no known exposure to covid positive people Test pending On heparin drip Hx of chronic Afib refuses AC before ECG chronic afib no acute changes PE not done being ruled out for COVID 19, to preserve PPE A/p - NSTEMI vs type II [place] /myocarditis Covid 19 pending Heparin drip Beta blockers Statins once covid ruled out Hemodynamically stable No need for urgent cath If covid 19 negative, then will transfer to EDG for cath I will check a CT PE protocol given pleuritic nature of pain Delicia Ramesh MD Interventional cardiology [facility] ECG AND WAVEFORMS - TELEMETRY Routine 10/13/2019 7:32 AM EDT HEPARIN ANTI-XA, UNF Timed 10/13/2019 7:07 AM EDT EK EKG 12 LEAD Routine 10/13/2019 12:05 AM EDT TROPONIN-T HIGH SENSITIVITY BASELINE W/ REFLEX STAT 10/12/2019 10:43 PM EDT HEPARIN ANTI-XA, UNF Timed 10/12/2019 9:51 PM EDT IP CONSULT TO PULMONOLOGY Routine 10/12/2019 9:40 PM EDT Procedure Note - Asher Clark MD - 10/13/2019 9:59 AM EDTThis note is in progress. Images from the original note were not included. INITIAL CONSULT 10/13/2019 Asher Burton MD HISTORY OF PRESENT ILLNESS REASON FOR CONSULT COVID-19 PUI HPI 63 yo M with h/o HTN, CAD, Afib that presented to the ED complaining of 2day h/o chest pain, reported as different as previous [place] and more likepleurisy. 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 Currently feeling better, chest pain has improved. Former smoker, 1.5 ppd since age 16, quit 20 years ago. Past Medical History: Diagnosis Date Arthritis all over, hands, neck, spine, knee Atrial fibrillation (HCC) Echo 12/10/2013: LVEF 55-60%. Mild CLVH. Mod right ventricular dilatation.Right ventricular hypokinesis. Mod right and left atrial dilatation. Traceto mild MR. Mod TR. RVSP estimated at 30 mmHg. Aortic root is dilated at4.4 cm Cardiac dysrhythmia, unspecified A fib comes and goes Cervical neck pain with evidence of disc disease DDD (degenerative disc disease), lumbar Hypertension Neuromuscular disorder (HCC) nerve damage form back injury Other and unspecified angina pectoris 08/27/11 takes cardizem for angina Spinal headache 07/10/1993 ct scan with dye and had bad headache Past Surgical History: Procedure Laterality Date CARPAL TUNNEL RELEASE Right 2014 CERVICAL SPINE SURGERY 1993, 2007, 2009 fused c3,4,5, ELBOW SURGERY 11/07/2010 reattached ligaments and removed gravel from left elbow [place]BOW SURGERY [place] EYE SURGERY right eye socket surgery KNEE ARTHROSCOPY 09/02/2011 LEFT KNEE ARTHROSCOPY DEBRIDEMENT MEDIAL MENISCUS MENISCECTOMYCHONDROPLASTY OSTEOCHONDRAL AUTOGRAFT TRANSPORT SYSTEM PROCEDURE.;Surgeon: Yuli Fermin MD; Location: [facility]; Service:Orthopedics KNEE ARTHROSCOPY Left 12/28/2015 ORTHOPEDIC SURGERY Allergies Allergen Reactions Codeine Constipation Milk Nausea Only CURRENT MEDS aspirin 325 mg Oral Daily bisoprolol 10 mg Oral Daily dilTIAZem 120 mg Oral Daily flu vac qv 2018(18yr up)rc(PF) 0.5 mL Intramuscular ONCE heparin (porcine) 3,500 Units Intravenous Once nitroGLYCERIN 1 Inch Topical 4 times per day FAMILY HISTORY Family History Problem Relation Age of Onset Alcohol Abuse Sister SOCIAL HISTORY Odilia reports that he quit smoking about 20 years ago. His smoking useincluded cigarettes. He has a 22.50 pack-year smoking history. He hasnever used smokeless tobacco. He reports current alcohol use of about 15.0oz of alcohol per week. He reports previous drug use. Drug: Marijuana. REVIEW OF SYSTEMS Review of systems including general/constitutional, visual, auditory,cardiovascular, respiratory, endocrine, hematologic, GI, , neurological,musculoskeletal and psychiatric was negative with the exception of thepositives mentioned in the HPI EXAMINATION VS BP: 132/86 Temp: 98.6 F (37 C) SpO2: 95 % HR: 92 Resp: 18 O2 Device: Nasal cannula O2 Flow Rate (L/min): 2 lpm Weight at Admission: 10/12/2019 261 lb (118.4 kg) Wt Readings from Last 2 Encounters: 10/12/19 261 lb (118.4 kg) 09/09/19 263 lb (119.3 kg) I/Os Intake/Output Summary (Last 24 hours) at 10/13/2019 1000 Last data filed at 10/13/2019 0615 Gross per 24 hour Intake 660 ml Output 0 ml Net 660 ml General appearance: Obese in no acute distress, while on [id number]. Head: normocephalic and atraumatic Eyes: pupils equal round and reactive to light and sclera anicteric ENT: mucous membranes moist, oral hygiene is good Neck/Lymphatic: supple, no adenopathy and no thyromegaly Respiratory System: Auscultation was not performed due to use of full PPEwith PAPR, No visible accessory muscle use noted Cardiovascular: Auscultation was not performed due to use of full PPE withPAPR, palpable peripheral pulses. Gastrointestinal: soft, nontender, nondistended, no mass and no rigidityor gross organomegaly Musculoskeletal: no cyanosis or edema Neurological: no focal neurologic deficits following commands. Dermatological: Normal DATA REVIEWED I have personally reviewed the following data: Lab Results Component Value Date/Time GLU 126 (H) 10/12/2019 02:56 PM BUN 7 (L) 10/12/2019 02:56 PM CREATININE 0.61 (L) 10/12/2019 02:56 PM NA 128 (L) 10/12/2019 02:56 PM K 4.1 10/12/2019 02:56 PM CL 90 (L) 10/12/2019 02:56 PM CO2 26 10/12/2019 02:56 PM CALCIUM 9.7 10/12/2019 02:56 PM GFRAFRAM 124 10/12/2019 02:56 PM Results for orders placed or performed during the hospital encounter of10/12/19 (from the past 336 hour(s)) BLOOD CULTURE (NO STAIN) Collection Time: 10/12/19 2:56 PM Specimen: Blood, Venous Result Value Ref Range Culture Result Blood culture received for processing in the laboratory. Positives willbe reported immediately. BLOOD CULTURE (NO STAIN) Collection Time: 10/12/19 2:56 PM Specimen: Blood, Venous Result Value Ref Range Culture Result Blood culture received for processing in the laboratory. Positives willbe reported immediately. INFLUENZA A/B ANTIGENS Collection Time: 10/12/19 3:22 PM Specimen: Nasopharynx; Swab Result Value Ref Range Influ A Ag Not Detected Not Detected Influ B Ag Not Detected Not Detected No results found for: RIOS Recent Labs 10/12/19 1456 10/12/19 1456 WBC -- 14.8* PROCLCTNIN 0.06 -- Recent Labs 10/12/19 1456 ALT 71* AST 240* Imaging/EKG in the past 24h: Ct Chest W Contrast Result Date: 10/12/2019 CT CHEST WITH CONTRAST, 10/12/2019 4:33 PM CLINICAL HISTORY: -CP, SOB,abnormal x-ray COMPARISON: Chest x-ray from today PROCEDURE COMMENTS:Multi detector volumetric CT scanning of the chest. Multiplanarreconstructions per protocol. 75 mL Isovue 370 given. Automated exposurecontrol for dose reduction was used. CTDIvol: 13.7 mGy. DLP: 475 mGy-cm.FINDINGS: There is elevation of the right hemidiaphragm which results insome atelectasis of the right lower lung which likely explains the chestx-ray finding. There are no groundglass opacities or other characteristicfindings of viral pneumonia. No pleural or pericardial fluid. Noadenopathy. Tracheobronchial tree is patent. Note made of fatty liver. No CT features to suggest pneumonia. (Note: CT may be negative in theearly stages of COVID-19.) Right hemidiaphragm elevation and resultingright basal atelectasis likely explains chest x-ray findings. - Xr Chest Ap Portable Result Date: 10/12/2019 XR CHEST AP PORTABLE, 10/12/2019 2:51 PM CLINICAL HISTORY: -CHEST PAINCOMPARISON: 11/06/2010 PROCEDURE COMMENTS: AP portable technique.FINDINGS: The cardiac silhouette is enlarged, but stable from previousexamination. There is a focal consolidation in the medial right lung base.This has a nodular/masslike appearance. No pleural effusion orpneumothorax. Focal consolidation in the medial right lung base has a nodularconfiguration. Recommend chest CT for further evaluation. Contrastenhanced examination would be preferred. - Ek Ekg 12 Lead Result Date: 10/12/2019 NOTICE: Preliminary tracing available for review; Final Interpretation byphysician to follow. [facility] Date:2019-10-12 Pat Name: ODILIA CERON Department: DEPIDPatient ID: [id number] Room: [facility] Gender:Male Superintendent Stevedoring: : [id number] By: LOUIS Lopez Order Number: [id number] MD: Amrit Rust, [facility] CENTEReasurements Intervals [place] Rate:78 P: [place]: 0QRS: 114 QRSD: 98 T:45 QT: 396 QTc:453Interpretive Statements ATRIAL FIBRILLATION POSSIBLE RIGHT VENTRICULARHYPERTROPHY NONSPECIFIC ST & T-WAVE ABNORMALITY no change Follow uptracing suggested Electronically Signed On 10-12-2019 19:13:30 EDT by MD Alicia MEDICAL DECISION MAKING ASSESSMENT: Acute hypoxic respiratory failure; O2 requirements stable at 2LPM COVID-19 PUI , sent on 10/11 Bilateral pneumonia Former smoker, estimated 30 py, quit 20 years ago. PLAN: Provide O2 supplementation to keep SpO2 88-92% Closely monitor O2 requirements, please let pulmonary know ifrequirements increase abruptly to higher than 6-8LPM Monitor LFTs, CK, Ferritin, Fibrinogen, Qtc Keep negative balance Continue airborne and contact isolation Avoid NSAIDs and systemic steroids unless otherwise indicated forprevious conditions Continue Heparin gtt, trend troponins, cardiology consult. Follow COVID-19 tests Thank you for the opportunity to participate in the care of yourpatient. Asher Burton MD Pulmonary and Critical Care Medicine Disclaimer- This note was completed using voice recognition software.Despite my review, it may still contain unintended errors, typos etc.Please do not hesitate to contact me through hospital paging service withquestions. ECG AND WAVEFORMS - TELEMETRY Routine 10/12/2019 9:27 PM EDT ADMIT STAT 10/12/2019 5:04 PM EDT REPEAT LACTIC ACID STAT 10/12/2019 4:34 PM EDT TROPONIN-T HIGH SENSITIVITY 2HR Timed 10/12/2019 4:[address] CHEST W CONTRAST STAT 10/12/2019 4:33 PM EDT IP CONSULT TO PHARMACY Routine 10/12/2019 3:42 PM EDT CORONAVIRUS 2019 (COVID-19) - REF LAB Timed 10/12/2019 3:22 PM EDT INFLUENZA A/B ANTIGENS STAT 10/12/2019 3:22 PM EDT LACTIC ACID STAT 10/12/2019 2:56 PM EDT CBC WITH DIFF STAT 10/12/2019 2:56 PM EDT TROPONIN-T HIGH SENSITIVITY BASELINE W/ REFLEX STAT 10/12/2019 2:56 PM EDT PROCALCITONIN STAT 10/12/2019 2:56 PM EDT COMPREHENSIVE METABOLIC PANEL STAT 10/12/2019 2:56 PM EDT BLOOD CULTURE (NO STAIN) STAT 10/12/2019 2:56 PM EDT BLOOD CULTURE (NO STAIN) STAT 10/12/2019 2:56 PM EDT DIFFERENTIAL Routine 10/12/2019 2:56 PM EDT XR CHEST AP PORTABLE WOJCIECH 10/12/2019 2:51 PM EDT EK EKG 12 LEAD STAT 10/12/2019 2:21 PM EDT COLOGUARD Routine 03/27/2019 10:00 AM EDT TESTOSTERONE LEVEL TOTAL Routine 05/21/2018 8:10 AM EST Low testosterone THYROID STIMULATING HORMONE Routine 05/21/2018 8:10 AM EST Annual physical exam Screening for thyroid disorder COMPREHENSIVE METABOLIC PANEL Routine 05/21/2018 8:10 AM EST Annual physical exam Screening for diabetes mellitus CBC Routine 05/21/2018 8:10 AM EST Annual physical exam Screening for deficiency anemia PROSTATE SPECIFIC ANTIGEN (SCREENING) Routine 05/21/2018 8:10 AM EST Annual physical exam Screening for prostate cancer CBC WITH DIFF STAT 11/17/2017 9:28 PM EDT XR TIBIA FIBULA LEFT AP AND LATERAL WOJCIECH 11/17/2017 9:14 PM EDT MRI LUMBAR SPINE WO CONTRAST Routine 09/25/2017 3:14 PM EDT Lumbago-sciatica due to displacement of lumbar intervertebral disc TESTOSTERONE LEVEL TOTAL Routine 08/02/2017 8:33 AM EST Male hypogonadism EK EKG 12 LEAD Routine 06/21/2017 11:23 AM EST Chronic atrial fibrillation (HCC) Mitral valve disease Pre-op examination BASIC METABOLIC PANEL Routine 06/21/2017 9:50 AM EST Essential hypertension Chronic atrial fibrillation (HCC) Pre-op examination CBC WITH DIFF Routine 06/21/2017 9:50 AM EST Essential hypertension Chronic atrial fibrillation (HCC) Pre-op examination XR HAND LEFT PA LATERAL AND OBLIQUE STAT 05/11/2017 2:56 PM EDT Injury of left hand, initial encounter XR WRIST LEFT PA LATERAL AND OBLIQUE STAT 05/11/2017 2:56 PM EDT Injury of left hand, initial encounter COMPREHENSIVE METABOLIC PANEL Routine 04/25/2017 11:16 AM EDT Essential hypertension THYROID STIMULATING HORMONE Routine 04/25/2017 11:16 AM EDT Essential hypertension CBC WITH DIFF Routine 04/25/2017 11:16 AM EDT Screening for deficiency anemia MRI CERVICAL SPINE WO CONTRAST Routine 04/25/2017 11:07 AM EDT Cervical stenosis of spine Hardware failure of anterior column of spine EC ECHOCARDIOGRAM COMPLETE W DOPPLER AND COLOR FLOW MAPPING Routine 01/16/2017 4:04 PM EDT Chronic atrial fibrillation (HCC) Mitral valve disease SCANNED PRE/POST PROCEDURES 02/28/2014 1:47 PM EDT SCANNED ANESTHESIA FORMS 02/28/2014 1:47 PM EDT SCANNED EKG 02/28/2014 1:47 PM EDT SCANNED RHYTHM STRIPS 02/28/2014 1:47 PM EDT CUBITAL TUNNEL RELEASE / NERVE TRANSPOSITION / DECOMPRESSION 02/26/2014 1:35 PM EDT Lesion of ulnar nerve, right Carpal tunnel syndrome, right Special Needs FAX REQUEST CPT [id number] CARPAL TUNNEL RELEASE ENDOSCOPIC 02/26/2014 1:35 PM EDT Lesion of ulnar nerve, right Carpal tunnel syndrome, right Special Needs FAX REQUEST CPT [id number] DIFFERENTIAL Routine 02/25/2014 11:45 AM EDT BASIC METABOLIC PANEL Routine 02/25/2014 11:45 AM EDT Preoperative examination, unspecified Cubital tunnel syndrome on right CBC WITH DIFF Routine 02/25/2014 11:45 AM EDT Preoperative examination, unspecified Cubital tunnel syndrome on right EK EKG 12 LEAD Routine 02/25/2014 11:18 AM EDT Preoperative examination, unspecified Cubital tunnel syndrome on right MRI SHOULDER RIGHT WO CONTRAST Routine 02/03/2014 1:38 PM EDT Shoulder pain MRI CERVICAL SPINE WO CONTRAST Routine 01/13/2014 4:17 PM EDT Brachial neuritis or radiculitis NOS EC ECHOCARDIOGRAM COMPLETE W DOPPLER AND COLOR FLOW MAPPING Routine 12/10/2013 4:02 PM EDT Atrial fibrillation (HCC) EC ECHOCARDIOGRAM COMPLETE W DOPPLER AND COLOR FLOW MAPPING Routine 07/04/2012 1:34 PM EST A-fib (HCC) HTN (hypertension) SCANNED EKG 07/04/2012 12:00 AM EST SCANNED RADIOLOGY REPORT 07/04/2012 12:00 AM EST SCANNED ANESTHESIA FORMS 09/06/2011 10:17 AM EST SCANNED OR REPORT 09/02/2011 6:04 PM EST KNEE ARTHROSCOPY MENISCECTOMY/REPAIR (ALSO COVERS ARTHROSCOPIC INCISION AND DRAINAGE/DEBRIDEMEN T) 09/02/2011 1:48 PM EST same as preop Special Needs CARMINE CPT 77019 [id number] BASIC METABOLIC PANEL Routine 08/31/2011 3:44 PM EST Pre-operative cardiovascular examination, high risk surgery EK EKG 12 LEAD Routine 08/31/2011 3:42 PM EST IUD check up JOINT FLUID CRYSTALS Routine 08/10/2011 3:45 PM EST Joint pain JOINT FLUID CELL COUNT Routine 08/10/2011 3:45 PM EST Joint pain BODY FLUID CULTURE (STAIN INCLUDED) Routine 08/10/2011 3:45 PM EST Joint pain ANAEROBIC CULTURE (NO STAIN) Routine 08/10/2011 3:45 PM EST Joint pain MRI LUMBAR SPINE WO CONTRAST Routine 04/18/2011 4:07 PM EDT Lumbago SCANNED PRE/POST PROCEDURES 11/12/2010 12:00 AM EDT SCANNED ANESTHESIA FORMS 11/12/2010 12:00 AM EDT XR WRIST LEFT PA AND LATERAL Today 11/10/2010 8:29 AM EDT BASIC METABOLIC PANEL Routine 11/10/2010 4:53 AM EDT CBC Routine 11/10/2010 4:53 AM EDT IP CONSULT TO SOCIAL WORK Routine 11/09/2010 9:18 PM EDT EC ECHOCARDIOGRAM COMPLETE W DOPPLER AND COLOR FLOW MAPPING Routine 11/08/2010 4:15 PM EDT HEPATIC FUNCTION PANEL Routine 11/08/2010 12:15 PM EDT ACUTE HEPATITIS PANEL Routine 11/08/2010 12:15 PM EDT HIV AG/AB Routine 11/08/2010 12:15 PM EDT TROPONIN-I STAT 11/08/2010 12:15 PM EDT EK EKG 12 LEAD STAT 11/08/2010 10:17 AM EDT DIFFERENTIAL Routine 11/08/2010 5:44 AM EDT BASIC METABOLIC PANEL Routine 11/08/2010 5:44 AM EDT CBC WITH DIFF Routine 11/08/2010 5:44 AM EDT SCANNED OR REPORT 11/08/2010 12:00 AM EDT DIFFERENTIAL STAT 11/07/2010 8:05 PM EDT BASIC METABOLIC PANEL STAT 11/07/2010 8:05 PM EDT CBC WITH DIFF STAT 11/07/2010 8:05 PM EDT XR CERVICAL SPINE AP AND LATERAL WOJCIECH 11/07/2010 6:33 PM EDT XR PELVIS WOJCIECH 11/07/2010 6:33 PM EDT XR THORACIC SPINE AP LATERAL AND SWIMMERS WOJCIECH 11/07/2010 6:33 PM EDT XR LUMBAR SPINE AP AND LATERAL WOJCIECH 11/07/2010 6:33 PM EDT ELBOW ARTHROTOMY 11/07/2010 1:04 PM EDT elbow laceration left elbow EK EKG 12 LEAD STAT 11/07/2010 11:[address] ABDOMEN PELVIS W CONTRAST STAT 11/07/2010 12:41 AM EDT XR CHEST PA AND LATERAL WOJCIECH 11/06/2010 11:29 PM EDT XR ELBOW LEFT AP LATERAL AND OBLIQUES WOJCIECH 11/06/2010 11:29 PM EDT VA US LOWER EXTREMITY VENOUS RIGHT Routine 07/19/2010 1:35 PM EST Leg pain SCANNED RADIOLOGY REPORT 05/11/2010 12:00 AM EDT SCANNED RADIOLOGY REPORT 05/11/2010 12:00 AM EDT SCANNED EKG 05/10/2010 12:00 AM EDT XR RIBS RIGHT 2 VW Routine 05/05/2010 3:41 PM EDT Fall ECHO - HISTORICAL Routine 10/27/2009 12:00 AM EDT XX CHEST PA & LATERAL Routine 10/19/2009 3:34 PM EDT EK EKG REG Routine 10/19/2009 3:[address] CERVICAL SPINE W/O CONT Routine 05/22/2009 1:59 PM EST KA MRI CERVICAL W/O Routine 01/19/2009 11:23 AM EDT ECHO - HISTORICAL Routine 11/06/2008 12:00 AM EDT DIAG CHEST PA OR AP Routine 12/23/2007 12:00 AM EDT EK EKG REG Routine 01/31/2007 12:34 PM EDT DIAG CHEST PA & LAT Routine 05/19/2006 12:00 AM EST Results * VECTOR REMOTE HEART FAILURE DEVICE (12/10/2024 12:00 AM EDT) Only the most recent of8 resultswithin the time period is included. 12/10/2024 Narrative [facility] - 12/10/2024 12:00 AM EDT Stable trend. us Radha Cotton MD [facility] CARDIAC CATH ORDERAB LES Final Result [facility] [address] [place] [id number] * EC ECHOCARDIOGRAM COMPLETE W DOPPLER AND COLOR FLOW MAPPING (12/03/2024 2:12 PM EDT) Only the most recent of12 resultswithin the time period is included. AORTIC STENOSIS no PYRAMIS Ejection Fraction 45-50% [...] APRN IMG ECHO ORDERABLES Final Res ult * NM BONE SCAN WHOLE BODY (12/03/2024 [...] CLINICAL HISTORY: Z96.641-Presence of right artificial hip [id number]-CM. COMPARISON: No comparison bone scan imaging studies. PROCEDURE COMMENTS: 28.3 mCi of [id number]. Whole body bone scanning per protocol. FINDINGS: [...] PM CLINICAL HISTORY: Z96.641-Presence of right artificial [id number]-97-CM. COMPARISON: No comparison bone scan imaging studies. PROCEDURE COMMENTS: 28.3 mCi of [id number]. Whole body bone scanningper protocol. FINDINGS: Prior [...] please contactthe office of the ordering clinician. René KUHN NM ORDERABLES Final Res ult * VECTOR REMOTE DEVICE (11/21/2024 12:00 AM EDT) Only the most recent of21 resultswithin the time period is included. 11/21/2024 Narrative [facility] - 11/21/2024 12:00 AM EDT Clinic Requested to assess histograms. No episodes. Patient on AC. Mode: VVIR. OBJECTS CONSERVATOR: 99.3%. Normal device function. Device Advisory. Addendum: Histogram has improved greatly since programming changes /BE Radha Cotton MD [facility] CATH ORDERAB LES Final Result [facility] [address] [place] [address] * XR HIP RIGHT AP LATERAL W AP PELVIS (11/14/2024 1:11 PM EDT) Only the most recent of6 resultswithin the time period is included. Narrative [facility] Paloma[facility] - 11/14/2024 1:11 PM EDT Please see physician's note from office encounter for x-ray imaging result us René Nicholas PA-C [facility] ORDE RABLES Final Result * [facility] REPORT (11/07/2024 5:12 PM EDT) Only the most recent of17 resultswithin the time period is included. 11/07/2024 5:12 PM EDT Narrative [facility] - 11/07/2024 2:21 PM EDT Odilia Ceron is here for [employer] visit. MDT S ICD 10/21/19 TC. See MD note and PDF for device report and parameters. us Radha Cotton MD [facility] CATH ORDERAB LES Final Result [facility] [address] [place] [address] * IR ULTRASOUND GUIDED VASCULAR ACCESS (09/23/2024 1:08 PM EDT) Only the most recent of2 resultswithin the time period is included. Anatomical Region Laterality Modality Interventional R adiology 09/23/2024 1:08 PM EDT Impressions 09/23/2024 4:31 PM EDT 1. 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 2. No significant aortoiliac inflow or femoropopliteal outflow stenosis. 3. No significant tibioperoneal runoff stenosis. Narrative 09/23/2024 4:31 PM EDT IR ABDOMINAL AORTOGRAM SERIALOGRAM, IR ULTRASOUND GUIDED VASCULAR ACCESS, IR ANGIOGRAM EXTREMITY BILATERAL 09/23/2024 1:08 PM HISTORY: L97.915-[id number] chronic ulcer of unspecified part of right lower leg with unspecified severity (HCC)-ICD-10-CM. Recurring right pretibial ulcerating blisters. 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 PROCEDURE: Informed consent obtained. Procedure performed by Dr. Dejon Capone. MAC anesthesia per department of anesthesiology. Fluoroscopy time 7.0 minutes, 263 mGy. 40 mm Isovue-370 tractor contrast used. Estimated blood loss less than 10 mL. Left groin prepped and draped usual to manner. Local anesthesia 1% lidocaine. Left common femoral artery demonstrated patent with permanent image obtained by ultrasound. Left common femoral artery accessed 4 [place] micropuncture set with ultrasound guidance. 5 [place] sheath placed over wire. Omni Flush catheter placed to the upper abdominal aorta. Abdominal aortogram performed with power injection and DSA. Flush catheter pulldown above bifurcation for continuation bilateral lower extremity runoff arteriography with power injection and DSA. Glidewire introduced up and over bifurcation. NTA catheter then advanced to the right above-knee popliteal artery for selective hand-injection right lower extremity arteriography of the tibial peroneal runoff. FINDINGS: 1. Mild tortuosity multifocal calcified atherosclerotic plaque abdominal aorta with no evidence of significant stenosis, aneurysm or dissection. Single renal artery bilaterally smooth and widely patent. Visualized celiac and the SMA patent without stenoses. 2. Multifocal mild atherosclerotic calcified plaque bilateral common iliac, external iliac and internal iliac arteries without significant inflow stenosis. 3. Asymmetric early right femoral arterial and venous filling compared to left consistent with AV fistula. Diffuse mild calcified atherosclerotic plaque bilateral common femoral, profunda femoral, superficial femoral and popliteal arteries without significant outflow stenosis noted. 4. Three-vessel infrageniculate trifurcation appears preserved. Multifocal mild atherosclerotic irregularity right tibial peroneal runoff without significant stenosis. Three-vessel runoff across the ankle preserved with anterior tibial continuing as dorsalis pedis and posterior tibial continuing as plantar arch. 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 Limited left iliofemoral arteriogram ipsilateral projection confirmed left common femoral arteriotomy suitable for closure device use. Hemostasis achieved left common femoral arteriotomy with Mynx deployment. Procedure Note Dejon Capone MD - 09/23/2024 IR ABDOMINAL AORTOGRAM SERIALOGRAM, IR ULTRASOUND GUIDED VASCULAR ACCESS,IR ANGIOGRAM EXTREMITY BILATERAL 09/23/2024 1:08 PM HISTORY: L97.777-[id number] chronic ulcer of unspecified part of rightlower leg with unspecified severity (HCC)-ICD-10-CM. Recurring right pretibial ulcerating blisters. Abnormal duplex and CTA suggesting righttibioperoneal occlusive disease. PROCEDURE: Informed consent obtained. Procedure performed by Dr. Dejon Capone. MAC anesthesia per department of anesthesiology. Fluoroscopy time 7.0 minutes,263 mGy. 40 mm Isovue-370 tractor contrast used. Estimated blood loss lessthan 10 mL. Left groin prepped and draped usual to manner. Local anesthesia 1%lidocaine. Left common femoral artery demonstrated patent with permanent imageobtained by ultrasound. Left common femoral artery accessed 4 [place] micropuncture setwith ultrasound guidance. 5 [place] sheath placed over wire. Omni Flushcatheter placed to the upper abdominal aorta. Abdominal aortogram performed withpower injection and DSA. Flush catheter pulldown above bifurcation forcontinuation bilateral lower extremity runoff arteriography with power injection andDSA. Glidewire introduced up and over bifurcation. NTA catheter then advancedto the right above-knee popliteal artery for selective hand-injection rightlower extremity arteriography of the tibial peroneal runoff. FINDINGS: 1. Mild tortuosity multifocal calcified atherosclerotic plaque abdominalaorta with no evidence of significant stenosis, aneurysm or dissection. Singlerenal artery bilaterally smooth and widely patent. Visualized celiac and theSMA patent without stenoses. 2. Multifocal mild atherosclerotic calcified plaque bilateral commoniliac, external iliac and internal iliac arteries without significant inflowstenosis. 3. Asymmetric early right femoral arterial and venous filling compared toleft consistent with AV fistula. Diffuse mild calcified atheroscleroticplaque bilateral common femoral, profunda femoral, superficial femoral andpopliteal arteries without significant outflow stenosis noted. 4. Three-vessel infrageniculate trifurcation appears preserved. Multifocalmild atherosclerotic irregularity right tibial peroneal runoff withoutsignificant stenosis. Three-vessel runoff across the ankle preserved with anteriortibial continuing as dorsalis pedis and posterior tibial continuing as plantararch. Complex AV malformation in the proximal to mid calf region notedinvolving multiple tortuous and tiny vessels off the tibial peroneal trunk,proximal posterior tibial and proximal peroneal artery mostly with rapid filling ofthe right below-knee popliteal vein. Limited left iliofemoral arteriogram ipsilateral projection confirmedleft common femoral arteriotomy suitable for closure device use. Hemostasisachieved left common femoral arteriotomy with Mynx deployment. IMPRESSION: 1. 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 2. No significant aortoiliac inflow or femoropopliteal outflowstenosis. 3. No significant tibioperoneal runoff stenosis. Dejon Capone MD IMG IR ORDERABLES Final Result * IR ANGIOGRAM EXTREMITY BILATERAL (09/23/2024 1:08 PM EDT) Anatomical Region Laterality Modality Interventional R adiology 09/23/2024 1:08 PM EDT Impressions 09/23/2024 4:31 PM EDT 1. 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 2. No significant aortoiliac inflow or femoropopliteal outflow stenosis. 3. No significant tibioperoneal runoff stenosis. Narrative 09/23/2024 4:31 PM EDT IR ABDOMINAL AORTOGRAM SERIALOGRAM, IR ULTRASOUND GUIDED VASCULAR ACCESS, IR ANGIOGRAM EXTREMITY BILATERAL 09/23/2024 1:08 PM HISTORY: L97.143-[id number] chronic ulcer of unspecified part of right lower leg with unspecified severity (HCC)-ICD-10-CM. Recurring right pretibial ulcerating blisters. 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 PROCEDURE: Informed consent obtained. Procedure performed by Dr. Dejon Capone. MAC anesthesia per department of anesthesiology. Fluoroscopy time 7.0 minutes, 263 mGy. 40 mm Isovue-370 tractor contrast used. Estimated blood loss less than 10 mL. Left groin prepped and draped usual to manner. Local anesthesia 1% lidocaine. Left common femoral artery demonstrated patent with permanent image obtained by ultrasound. Left common femoral artery accessed 4 [place] micropuncture set with ultrasound guidance. 5 [place] sheath placed over wire. Omni Flush catheter placed to the upper abdominal aorta. Abdominal aortogram performed with power injection and DSA. Flush catheter pulldown above bifurcation for continuation bilateral lower extremity runoff arteriography with power injection and DSA. Glidewire introduced up and over bifurcation. NTA catheter then advanced to the right above-knee popliteal artery for selective hand-injection right lower extremity arteriography of the tibial peroneal runoff. FINDINGS: 1. Mild tortuosity multifocal calcified atherosclerotic plaque abdominal aorta with no evidence of significant stenosis, aneurysm or dissection. Single renal artery bilaterally smooth and widely patent. Visualized celiac and the SMA patent without stenoses. 2. Multifocal mild atherosclerotic calcified plaque bilateral common iliac, external iliac and internal iliac arteries without significant inflow stenosis. 3. Asymmetric early right femoral arterial and venous filling compared to left consistent with AV fistula. Diffuse mild calcified atherosclerotic plaque bilateral common femoral, profunda femoral, superficial femoral and popliteal arteries without significant outflow stenosis noted. 4. Three-vessel infrageniculate trifurcation appears preserved. Multifocal mild atherosclerotic irregularity right tibial peroneal runoff without significant stenosis. Three-vessel runoff across the ankle preserved with anterior tibial continuing as dorsalis pedis and posterior tibial continuing as plantar arch. 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 Limited left iliofemoral arteriogram ipsilateral projection confirmed left common femoral arteriotomy suitable for closure device use. Hemostasis achieved left common femoral arteriotomy with Mynx deployment. Procedure Note Dejon Capone MD - 09/23/2024 IR ABDOMINAL AORTOGRAM SERIALOGRAM, IR ULTRASOUND GUIDED VASCULAR ACCESS,IR ANGIOGRAM EXTREMITY BILATERAL 09/23/2024 1:08 PM HISTORY: L97.249-[id number] chronic ulcer of unspecified part of rightlower leg with unspecified severity (HCC)-ICD-10-CM. Recurring right pretibial ulcerating blisters. Abnormal duplex and CTA suggesting righttibioperoneal occlusive disease. PROCEDURE: Informed consent obtained. Procedure performed by Dr. Dejon Capone. MAC anesthesia per department of anesthesiology. Fluoroscopy time 7.0 minutes,263 mGy. 40 mm Isovue-370 tractor contrast used. Estimated blood loss lessthan 10 mL. Left groin prepped and draped usual to manner. Local anesthesia 1%lidocaine. Left common femoral artery demonstrated patent with permanent imageobtained by ultrasound. Left common femoral artery accessed 4 [place] micropuncture setwith ultrasound guidance. 5 [place] sheath placed over wire. Omni Flushcatheter placed to the upper abdominal aorta. Abdominal aortogram performed withpower injection and DSA. Flush catheter pulldown above bifurcation forcontinuation bilateral lower extremity runoff arteriography with power injection andDSA. Glidewire introduced up and over bifurcation. NTA catheter then advancedto the right above-knee popliteal artery for selective hand-injection rightlower extremity arteriography of the tibial peroneal runoff. FINDINGS: 1. Mild tortuosity multifocal calcified atherosclerotic plaque abdominalaorta with no evidence of significant stenosis, aneurysm or dissection. Singlerenal artery bilaterally smooth and widely patent. Visualized celiac and theSMA patent without stenoses. 2. Multifocal mild atherosclerotic calcified plaque bilateral commoniliac, external iliac and internal iliac arteries without significant inflowstenosis. 3. Asymmetric early right femoral arterial and venous filling compared toleft consistent with AV fistula. Diffuse mild calcified atheroscleroticplaque bilateral common femoral, profunda femoral, superficial femoral andpopliteal arteries without significant outflow stenosis noted. 4. Three-vessel infrageniculate trifurcation appears preserved. Multifocalmild atherosclerotic irregularity right tibial peroneal runoff withoutsignificant stenosis. Three-vessel runoff across the ankle preserved with anteriortibial continuing as dorsalis pedis and posterior tibial continuing as plantararch. Complex AV malformation in the proximal to mid calf region notedinvolving multiple tortuous and tiny vessels off the tibial peroneal trunk,proximal posterior tibial and proximal peroneal artery mostly with rapid filling ofthe right below-knee popliteal vein. Limited left iliofemoral arteriogram ipsilateral projection confirmedleft common femoral arteriotomy suitable for closure device use. Hemostasisachieved left common femoral arteriotomy with Mynx deployment. IMPRESSION: 1. 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 2. No significant aortoiliac inflow or femoropopliteal outflowstenosis. 3. No significant tibioperoneal runoff stenosis. us Dejon Capone MD IMG IR ORDERABLES Final Result * IR ABDOMINAL AORTOGRAM SERIALOGRAM (09/23/2024 1:08 PM EDT) Anatomical Region Laterality Modality Interventional R adiology 09/23/2024 1:08 PM EDT Impressions 09/23/2024 4:31 PM EDT 1. 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 2. No significant aortoiliac inflow or femoropopliteal outflow stenosis. 3. No significant tibioperoneal runoff stenosis. Narrative 09/23/2024 4:31 PM EDT IR ABDOMINAL AORTOGRAM SERIALOGRAM, IR ULTRASOUND GUIDED VASCULAR ACCESS, IR ANGIOGRAM EXTREMITY BILATERAL 09/23/2024 1:08 PM HISTORY: L97.373-Seg-qukpevtp chronic ulcer of unspecified part of right lower leg with unspecified severity (HCC)-ICD-10-CM. Recurring right pretibial ulcerating blisters. 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 PROCEDURE: Informed consent obtained. Procedure performed by Dr. Dejon Capone. MAC anesthesia per department of anesthesiology. Fluoroscopy time 7.0 minutes, 263 mGy. 40 mm Isovue-370 tractor contrast used. Estimated blood loss less than 10 mL. Left groin prepped and draped usual to manner. Local anesthesia 1% lidocaine. Left common femoral artery demonstrated patent with permanent image obtained by ultrasound. Left common femoral artery accessed 4 [place] micropuncture set with ultrasound guidance. 5 [place] sheath placed over wire. Omni Flush catheter placed to the upper abdominal aorta. Abdominal aortogram performed with power injection and DSA. Flush catheter pulldown above bifurcation for continuation bilateral lower extremity runoff arteriography with power injection and DSA. Glidewire introduced up and over bifurcation. NTA catheter then advanced to the right above-knee popliteal artery for selective hand-injection right lower extremity arteriography of the tibial peroneal runoff. FINDINGS: 1. Mild tortuosity multifocal calcified atherosclerotic plaque abdominal aorta with no evidence of significant stenosis, aneurysm or dissection. Single renal artery bilaterally smooth and widely patent. Visualized celiac and the SMA patent without stenoses. 2. Multifocal mild atherosclerotic calcified plaque bilateral common iliac, external iliac and internal iliac arteries without significant inflow stenosis. 3. Asymmetric early right femoral arterial and venous filling compared to left consistent with AV fistula. Diffuse mild calcified atherosclerotic plaque bilateral common femoral, profunda femoral, superficial femoral and popliteal arteries without significant outflow stenosis noted. 4. Three-vessel infrageniculate trifurcation appears preserved. Multifocal mild atherosclerotic irregularity right tibial peroneal runoff without significant stenosis. Three-vessel runoff across the ankle preserved with anterior tibial continuing as dorsalis pedis and posterior tibial continuing as plantar arch. 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 Limited left iliofemoral arteriogram ipsilateral projection confirmed left common femoral arteriotomy suitable for closure device use. Hemostasis achieved left common femoral arteriotomy with Mynx deployment. Procedure Note Dejon Capone MD - 09/23/2024 IR ABDOMINAL AORTOGRAM SERIALOGRAM, IR ULTRASOUND GUIDED VASCULAR ACCESS,IR ANGIOGRAM EXTREMITY BILATERAL 09/23/2024 1:08 PM HISTORY: L97.133-Bew-dskqbife chronic ulcer of unspecified part of rightlower leg with unspecified severity (HCC)-ICD-10-CM. Recurring right pretibial ulcerating blisters. Abnormal duplex and CTA suggesting righttibioperoneal occlusive disease. PROCEDURE: Informed consent obtained. Procedure performed by Dr. Dejon Capone. MAC anesthesia per department of anesthesiology. Fluoroscopy time 7.0 minutes,263 mGy. 40 mm Isovue-370 tractor contrast used. Estimated blood loss lessthan 10 mL. Left groin prepped and draped usual to manner. Local anesthesia 1%lidocaine. Left common femoral artery demonstrated patent with permanent imageobtained by ultrasound. Left common femoral artery accessed 4 [place] micropuncture setwith ultrasound guidance. 5 [place] sheath placed over wire. Omni Flushcatheter placed to the upper abdominal aorta. Abdominal aortogram performed withpower injection and DSA. Flush catheter pulldown above bifurcation forcontinuation bilateral lower extremity runoff arteriography with power injection andDSA. Glidewire introduced up and over bifurcation. NTA catheter then advancedto the right above-knee popliteal artery for selective hand-injection rightlower extremity arteriography of the tibial peroneal runoff. FINDINGS: 1. Mild tortuosity multifocal calcified atherosclerotic plaque abdominalaorta with no evidence of significant stenosis, aneurysm or dissection. Singlerenal artery bilaterally smooth and widely patent. Visualized celiac and theSMA patent without stenoses. 2. Multifocal mild atherosclerotic calcified plaque bilateral commoniliac, external iliac and internal iliac arteries without significant inflowstenosis. 3. Asymmetric early right femoral arterial and venous filling compared toleft consistent with AV fistula. Diffuse mild calcified atheroscleroticplaque bilateral common femoral, profunda femoral, superficial femoral andpopliteal arteries without significant outflow stenosis noted. 4. Three-vessel infrageniculate trifurcation appears preserved. Multifocalmild atherosclerotic irregularity right tibial peroneal runoff withoutsignificant stenosis. Three-vessel runoff across the ankle preserved with anteriortibial continuing as dorsalis pedis and posterior tibial continuing as plantararch. Complex AV malformation in the proximal to mid calf region notedinvolving multiple tortuous and tiny vessels off the tibial peroneal trunk,proximal posterior tibial and proximal peroneal artery mostly with rapid filling ofthe right below-knee popliteal vein. Limited left iliofemoral arteriogram ipsilateral projection confirmedleft common femoral arteriotomy suitable for closure device use. Hemostasisachieved left common femoral arteriotomy with Mynx deployment. IMPRESSION: 1. 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 2. No significant aortoiliac inflow or femoropopliteal outflowstenosis. 3. No significant tibioperoneal runoff stenosis. Dejon Capone MD IMG IR ORDERABLES Final Result * INTRAOP AIRWAY PLACEMENT (09/23/2024 12:05 PM EDT) Narrative [facility] - 09/23/2024 12:05 PM EDT Margarita Hector CRNA 09/23/2024 12:24 PM Intraop Airway Placement: Date/Time: 09/23/2024 12:05 PM Airway type: Non-rebreather Jose Amador DO [place] ANESTHESIA Final Resul t [facility] [address] [place] [address] * (ABNORMAL) CBC WITH DIFF (09/23/2024 10:11 AM EDT) Only the most recent of21 resultswithin the time period is included. WBC 9.3 3.7 - 10.3 x10(3)/mcL 09/23/2024 10:20 AM EDT [facility] RBC 4.40(L) 4.60 - 6.10 x10(6)/mcL 09/23/2024 10:20 AM EDT [facility] Hgb 14.0 13.7 - 17.5 g/dL 09/23/2024 10:20 AM EDT [facility] Hct 42.6 40.0 - 51.0 % 09/23/2024 10:20 AM EDT [facility] MCV 96.8 80.0 - 100.0 fL 09/23/2024 10:20 AM EDT [facility] MCH 31.8 26.0 - 34.0 pg 09/23/2024 10:20 AM EDT [facility] MCHC 32.9 30.7 - 35.5 g/dL 09/23/2024 10:20 AM EDT [facility] RDW 13.2 <=14.9 % 09/23/2024 10:20 AM EDT [facility] Platelet 205 155 - 369 x10(3)/mcL 09/23/2024 10:20 AM EDT [facility] MPV 9.8 8.8 - 12.5 fL 09/23/2024 10:20 AM EDT [facility] Neut Percent 76.2 % 09/23/2024 10:20 AM EDT [facility] Comment:Neutrophils equals s egs plus bands Imm Gran% 0.4 % 09/23/2024 10:20 AM EDT [facility] Comment:Automated count of m etamyelocytes, myelocytes and promyelocytes. Lymph Percent 11.9 % 09/23/2024 10:20 AM EDT [facility] [place] Percent 9.3 % 09/23/2024 10:20 AM EDT [facility] Eos Percent 2.0 % 09/23/2024 10:20 AM EDT [facility] Baso Percent 0.2 % 09/23/2024 10:20 AM EDT [facility] Neut # 7.1(H) 1.6 - 6.1 x10(3)/[facility] 09/23/2024 10:20 AM EDT [facility] Comment:Neutrophils equals s egs plus bands IMMGRAN# 0.0 0.0 - 0.1 x10(3)/[facility] 09/23/2024 10:20 AM EDT [facility] Comment:Automated count of m etamyelocytes, myelocytes and promyelocytes. An absolute IG <0.1 is reported as 0.0. Lymph # 1.1(L) 1.2 - 3.9 x10(3)/[facility] 09/23/2024 10:20 AM EDT [facility] [place] # 0.9 0.3 - 0.9 x10(3)/[facility] 09/23/2024 10:20 AM EDT [facility] Eos# 0.2 0.0 - 0.5 x10(3)/[facility] 09/23/2024 10:20 AM EDT [facility] Baso # 0.0 0.0 - 0.1 x10(3)/[facility] 09/23/2024 10:20 AM EDT [facility] Blood VENOUS BLOOD / Unknown Venipuncture / Unknown 09/23/2024 10:11 AM EDT 09/23/2024 10:14 AM EDT us Dejon Capone MD HEMATOLOGY ORDERABLES Final Re sult [facility] [address] [facility] [place] [address] * PT / INR (09/23/2024 10:10 AM EDT) Only the most recent of6 resultswithin the time period is included. PT 12.7 10.5 - 13.6 second(s) 09/23/2024 10:27 AM EDT [facility] INR 1.08 0.89 - 1.16 (ratio) 09/23/2024 10:27 AM EDT [facility] Comment: Level of Therapy Indications Target INR Range Standard Dose Treatment and prophylaxis of venous 2.0 - 3.0 thrombosis, pulmonary embolism High Dose High risk patients with mechanical 2.5 - 3.5 heart valves Blood VENOUS BLOOD / Unknown Venipuncture / Unknown 09/23/2024 10:10 AM EDT 09/23/2024 10:15 AM EDT us Dejon Capone MD HEMATOLOGY ORDERABLES Final Re sult [facility] [address] [facility] [place] [address] * (ABNORMAL) BASIC METABOLIC PANEL (09/19/2024 12:40 PM EDT) Only the most recent of31 resultswithin the time period is included. Sodium 137 136 - 145 mmol/L 09/19/2024 1:14 PM EDT [facility] Potassium 4.5 3.5 - 5.0 mmol/L 09/19/2024 1:14 PM EDT [facility] Chloride 97(L) 98 - 107 mmol/L 09/19/2024 1:14 PM EDT [facility] Total CO2 29 22 - 29 mmol/L 09/19/2024 1:14 PM EDT [facility] Anion Gap 11 7 - 16 mmol/L 09/19/2024 1:14 PM EDT [facility] Calcium 8.8 8.8 - 10.4 mg/dL 09/19/2024 1:14 PM EDT [facility] Glucose Lvl 97 70 - 99 mg/dL 09/19/2024 1:14 PM EDT [facility] BUN 12 8 - 23 mg/dL 09/19/2024 1:14 PM EDT [facility] Creatinine 1.03 0.67 - 1.30 mg/dL 09/19/2024 1:14 PM EDT [facility] eGFR (CKD-EPIcr 2020) 80 >=60 mL/min/1.7 3 m2 09/19/2024 1:14 PM EDT [facility] Comment:Estimated GFR was ca lculated using the CKD-EPIcr (2020) equation refit without race. The equation is recommended by the [employer] - [place] [employer] Task Force. Blood VENOUS BLOOD / Unknown Venipuncture / Unknown 09/19/2024 12:40 PM EDT 09/19/2024 12:42 PM EDT us Dejon Cpaone MD CHEMISTRY ORDERABLES Final Res ult [facility] [address] [facility] , [address] [place] [id number] * MRI THORACIC SPINE WO CONTRAST (07/19/2024 11:28 AM EST) Anatomical Region Laterality Modality T-spine Magnetic Resonan ce 07/19/2024 11:2 8 AM EST Impressions 07/19/2024 1:24 PM EST Junctional degenerative changes at C7-T1 with questionable spinal cord edema/myelomalacia at this level. Consider MRI of the cervical spine. Thoracic spine degenerative changes with high-grade neuroforaminal narrowing on the right at T1-T2. - Note: Radiology results need to be interpreted within a comprehensive clinical context. If you have questions about the radiology report, please contact the office of the ordering clinician. 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 COMPARISON: CT chest 10/12/2019. PROCEDURE COMMENTS: Multiplanar multiecho MR imaging of the thoracic spine. Sagittal imaging of the entire thoracic spine with selected axial imaging. FINDINGS: Counting reference: The first rib bearing vertebra is labeled as T1. Questionable cord T2 hyperintensity at the cervicothoracic junction at C7-T1. Vertebroplasty. Fluid around the right greater than left hip joints. Partially visualized hydrocele. Partially visualized anterior cervical spine fusion with mild anterolisthesis at C7-T1. Exaggerated thoracic kyphosis with mild stepwise anterolisthesis at T3-T6. Maintained vertebral body heights. T6 intraosseous hemangioma. Multilevel disc space narrowing throughout the thoracic spine which is most apparent and moderate at T8-T10. Multilevel endplate Schmorl's nodes as well as disc bulges and disc protrusions. Multilevel facet arthropathy. Neuroforaminal narrowing is severe on the right at T1 and T2. No high-grade canal narrowing. Procedure Note Alexandr Reyes MD - 07/19/2024 MRI THORACIC SPINE WITHOUT CONTRAST, 07/19/2024 11:28 AM CLINICAL HISTORY: M48.061-Spinal stenosis, lumbar region withoutneurogenic pglivxfucxvs-RET-93-CM M47.816-Spondylosis without myelopathy or radiculopathy, xxgtbafdcmod-QZX-16-CM M51.360-Other intervertebral disc degeneration, lumbar region withdiscogenic back pain mjof-CLG-82-CM M54.50-Low back pain, ppcbaawondc-MWP-11-CM M79.18-Myalgia, other vvnj-ZMP-18-CM M53.3-Sacrococcygeal disorders, not elsewhere classified. COMPARISON: CT chest 10/12/2019. PROCEDURE COMMENTS: Multiplanar multiecho MR imaging of the thoracicspine. Sagittal imaging of the entire thoracic spine with selected axial imaging. FINDINGS: Counting reference: The first rib bearing vertebra is labeled as T1. Questionable cord T2 hyperintensity at the cervicothoracic junction atC7-T1. Vertebroplasty. Fluid around the right greater than left hip joints.Partially visualized hydrocele. Partially visualized anterior cervical spine fusion with mildanterolisthesis at C7-T1. Exaggerated thoracic kyphosis with mild stepwise anterolisthesisat T3-T6. Maintained vertebral body heights. T6 intraosseous hemangioma. Multilevel disc space narrowing throughout the thoracic spine which ismost apparent and moderate at T8-T10. Multilevel endplate Schmorl's nodes aswell as disc bulges and disc protrusions. Multilevel facet arthropathy.Neuroforaminal narrowing is severe on the right at T1 and T2. No high-grade canalnarrowing. IMPRESSION: Junctional degenerative changes at C7-T1 with questionable spinal cord edema/myelomalacia at this level. Consider MRI of the cervical spine. Thoracic spine degenerative changes with high-grade neuroforaminalnarrowing on the right at T1-T2. - Note: Radiology results need to be interpreted within a comprehensiveclinical context. If you have questions about the radiology report, please contactthe office of the ordering clinician. us Jose Solorio MD IMG MRI ORDERABLES Final Result * CT ANGIOGRAM LOWER EXTREMITY RIGHT W CONTRAST (06/26/2024 7:21 PM EST) Anatomical Region Laterality Modality Leg Computed Tomogra phy 06/26/2024 7:21 PM EST Impressions 06/27/2024 10:23 AM EST 1. Severe RIGHT lower extremity below knee peripheral vascular disease with three-vessel occlusion. Narrative 06/27/2024 10:[address] ANGIOGRAM LOWER EXTREMITY RIGHT W CONTRAST 06/26/2024 7:21 PM HISTORY: L97.015-Poi-twgtwsut chronic ulcer of unspecified part of right lower leg with unspecified severity (HCC)-ICD-10-CM PROCEDURE: CT angiography of the RIGHT lower extremity with 3-D reconstructions. 3-D and MPR images seen and reviewed. FINDINGS: Imaging was obtained from the level just above the knee to the foot. Above-knee popliteal artery is widely patent. 95 % stenosis of the popliteal artery is present just proximal to the origin of the anterior tibial artery. Diffuse atherosclerotic calcification of the distal popliteal artery, tibial peroneal trunk, and origins of the anterior tibial artery and posterior tibial artery are present. Anterior tibial artery is occluded just beyond the origin. There is reconstitution of the dorsalis pedis at the foot. Posterior tibial artery is diffusely diseased and occluded in the distal third without evidence of significant reconstitution. Peroneal artery is diffusely diseased with multiple tandem 75-95% focal stenoses. No definite arterial venous fistula was present. Procedure Note Devaughn Paris MD - 06/27/2024 CT ANGIOGRAM LOWER EXTREMITY RIGHT W CONTRAST 06/26/2024 7:21 PM HISTORY: L97.334-Ngh-ttykholj chronic ulcer of unspecified part of rightlower leg with unspecified severity (HCC)-ICD-10-CM PROCEDURE: CT angiography of the RIGHT lower extremity with 3-D reconstructions. 3-Dand MPR images seen and reviewed. FINDINGS: Imaging was obtained from the level just above the knee to the foot. Above-knee popliteal artery is widely patent. 95 % stenosis of thepopliteal artery is present just proximal to the origin of the anterior tibialartery. Diffuse atherosclerotic calcification of the distal popliteal artery,tibial peroneal trunk, and origins of the anterior tibial artery and posteriortibial artery are present. Anterior tibial artery is occluded just beyond theorigin. There is reconstitution of the dorsalis pedis at the foot. Posteriortibial artery is diffusely diseased and occluded in the distal third withoutevidence of significant reconstitution. Peroneal artery is diffusely diseasedwith multiple tandem 75-95% focal stenoses. No definite arterial venousfistula was present. IMPRESSION: 1. Severe RIGHT lower extremity below knee peripheral vascular diseasewith three-vessel occlusion. Dejon Capone MD IMG CT ORDERABLES Final Result * CREATININE ISTAT (06/26/2024 7:00 PM EST) Creatinine-iST AT 1.2 0.6 - 1.3 mg/dL 06/26/2024 7:20 PM EST [facility] Blood BLOOD SPECIMEN / Unknown 06/26/2024 7:00 PM EST 06/26/2024 7:20 PM EST Dejon Capone MD POINT OF CARE TEST ORDERABLES Final Result [facility] [address] [place] [id number] * XR LUMBAR SPINE AP LATERAL FLEXION AND EXTENSION (03/14/2024 2:33 PM EDT) Only the most recent of2 resultswithin the time period is included. Narrative Genericuser, Audit - 03/14/2024 2:33 PM EDT Please see physician's note from office encounter for x-ray imaging result Theresa KNUTSON IMG DIAGNOSTIC IMAGING ORDERABL ES Final Result * IR VENOGRAM BILATERAL WITH IVUS (02/12/2024 10:32 AM EDT) Anatomical Region Laterality Modality Interventional R adiology 02/12/2024 10:3 2 AM EDT Impressions 02/12/2024 3:32 PM EDT Mild narrowing left iliofemoral venous junction. No significant venous stenosis or occlusion demonstrated. Narrative 02/12/2024 3:32 PM EDT IR VENOGRAM BILATERAL WITH IVUS, IR VENOGRAM INFERIOR VENA CAVA, IR ULTRASOUND GUIDED VASCULAR ACCESS 02/12/2024 10:32 AM HISTORY: R60.0-Localized ftomu-OTA-97-CM left worse than right lower extremity chronic edema with history of weeping blisters and venous ulceration right lower limb. PROCEDURE: Informed consent obtained. Procedure performed by Dr. Dejon Capone.. Moderate sedation with Versed and fentanyl administered by the interventional radiology nurse. Both pre- and postprocedure patient evaluation and cardiorespiratory monitoring performed. Physician intra-service time 40 minutes. Fluoroscopy time 2.9 minutes, 2 exposures acquired. 14 mm Isovue 370 intravenous contrast utilized. Estimated blood loss less than 10 mL. Right neck prepped and draped usual sterile manner. Local anesthesia 1% lidocaine. Right internal jugular vein demonstrated patent with permanent image obtained by ultrasound. Internal jugular vein accessed 4 [place] micropuncture set with ultrasound guidance. 10 [place] sheath placed over wire to right atrium fluoroscopically. Direct transduced right atrial pressure elevated at 24/12 (18) mmHg. Sheath advanced to the IVC. Coaxial REGGIE 1 catheter advanced to the left common femoral vein fluoroscopically. Power injection left ilio caval pelvic arteriogram performed with DSA. Left pelvic arteriogram: 1. Left common femoral vein, left external iliac vein, left common iliac vein patent without obvious stenosis or filling defects. 2. IVC patent with unopacified inflow from the right noted. Over the wire IVUS performed with cinegraphic capture from IVC to left common femoral vein: 1. IVC patent with cross-sectional area 289 sq mm. 2. Left common iliac vein widely patent with minimum cross-sectional area 171 sq mm. 3. Left external iliac vein patent with cross-sectional area 144 sq mm. Mild narrowing of the left iliofemoral venous junction noted with cross-sectional area 105 sq mm. 4. Left common femoral vein patent with cross-sectional area 164 mm prior. REGGIE 1 catheter then utilized to select the right common femoral vein. Power injection right ilio caval pelvic arteriogram performed DSA. Right pulmonary arteriogram: 1. Right common femoral vein, right external iliac vein, right common iliac vein patent without obvious stenosis or filling defects. 2. IVC patent with unopacified inflow from the left noted. Over the wire IVUS performed with cinegraphic capture from IVC to right common femoral vein: 1. Right common iliac vein patent with cross-sectional area 169 sq mm. 2. Right external iliac vein patent with minimum cross-sectional area 120 sq mm. 3. Right common femoral vein patent with cross-sectional area 187 mm. Hemostasis achieved right internal jugular venotomy with manual compression. Procedure Note Dejon Capone MD - 02/12/2024 IR VENOGRAM BILATERAL WITH IVUS, IR VENOGRAM INFERIOR VENA CAVA, IRULTRASOUND GUIDED VASCULAR ACCESS 02/12/2024 10:32 AM HISTORY: R60.0-Localized [id number]-CM left worse than right lowerextremity chronic edema with history of weeping blisters and venous ulceration rightlower limb. PROCEDURE: Informed consent obtained. Procedure performed by Dr. Dejon Capone..Moderate sedation with Versed and fentanyl administered by the interventionalradiology nurse. Both pre- and postprocedure patient evaluation andcardiorespiratory monitoring performed. Physician intra-service time 40 minutes. Fluoroscopytime 2.9 minutes, 2 exposures acquired. 14 mm Isovue 370 intravenous contrast utilized. Estimated blood loss less than 10 mL. Right neck prepped and draped usual sterile manner. Local anesthesia 1% lidocaine. Right internal jugular vein demonstrated patent with permanentimage obtained by ultrasound. Internal jugular vein accessed 4 Frenchmicropuncture set with ultrasound guidance. 10 [place] sheath placed over wire to rightatrium fluoroscopically. Direct transduced right atrial pressure elevated at24/12 (18) mmHg. Sheath advanced to the IVC. Coaxial REGGIE 1 catheter advanced to the leftcommon femoral vein fluoroscopically. Power injection left ilio caval pelvic arteriogram performed with DSA. Left pelvic arteriogram: 1. Left common femoral vein, left external iliac vein, left common iliacvein patent without obvious stenosis or filling defects. 2. IVC patent with unopacified inflow from the right noted. Over the wire IVUS performed with cinegraphic capture from IVC to leftcommon femoral vein: 1. IVC patent with cross-sectional area 289 sq mm. 2. Left common iliac vein widely patent with minimum cross-sectional [id number] sq mm. 3. Left external iliac vein patent with cross-sectional area 144 sq mm.Mild narrowing of the left iliofemoral venous junction noted withcross-sectional area 105 sq mm. 4. Left common femoral vein patent with cross-sectional area 164 mmprior. REGGIE 1 catheter then utilized to select the right common femoral vein.Power injection right ilio caval pelvic arteriogram performed DSA. Right pulmonary arteriogram: 1. Right common femoral vein, right external iliac vein, right commoniliac vein patent without obvious stenosis or filling defects. 2. IVC patent with unopacified inflow from the left noted. Over the wire IVUS performed with cinegraphic capture from IVC to rightcommon femoral vein: 1. Right common iliac vein patent with cross-sectional area 169 sq mm. 2. Right external iliac vein patent with minimum cross-sectional area 120sq mm. 3. Right common femoral vein patent with cross-sectional area 187 mm. Hemostasis achieved right internal jugular venotomy with manualcompression. IMPRESSION: Mild narrowing left iliofemoral venous junction. No significant venousstenosis or occlusion demonstrated. Dejon Capone MD IMG IR ORDERABLES Final Result * IR VENOGRAM INFERIOR VENA CAVA (02/12/2024 10:32 AM EDT) Anatomical Region Laterality Modality Interventional R adiology 02/12/2024 10:3 2 AM EDT Impressions 02/12/2024 3:32 PM EDT Mild narrowing left iliofemoral venous junction. No significant venous stenosis or occlusion demonstrated. Narrative 02/12/2024 3:32 PM EDT IR VENOGRAM BILATERAL WITH IVUS, IR VENOGRAM INFERIOR VENA CAVA, IR ULTRASOUND GUIDED VASCULAR ACCESS 02/12/2024 10:32 AM HISTORY: R60.0-Localized [id number]-CM left worse than right lower extremity chronic edema with history of weeping blisters and venous ulceration right lower limb. PROCEDURE: Informed consent obtained. Procedure performed by Dr. Dejon Capone.. Moderate sedation with Versed and fentanyl administered by the interventional radiology nurse. Both pre- and postprocedure patient evaluation and cardiorespiratory monitoring performed. Physician intra-service time 40 minutes. Fluoroscopy time 2.9 minutes, 2 exposures acquired. 14 mm Isovue 370 intravenous contrast utilized. Estimated blood loss less than 10 mL. Right neck prepped and draped usual sterile manner. Local anesthesia 1% lidocaine. Right internal jugular vein demonstrated patent with permanent image obtained by ultrasound. Internal jugular vein accessed 4 [place] micropuncture set with ultrasound guidance. 10 [place] sheath placed over wire to right atrium fluoroscopically. Direct transduced right atrial pressure elevated at 24/12 (18) mmHg. Sheath advanced to the IVC. Coaxial REGGIE 1 catheter advanced to the left common femoral vein fluoroscopically. Power injection left ilio caval pelvic arteriogram performed with DSA. Left pelvic arteriogram: 1. Left common femoral vein, left external iliac vein, left common iliac vein patent without obvious stenosis or filling defects. 2. IVC patent with unopacified inflow from the right noted. Over the wire IVUS performed with cinegraphic capture from IVC to left common femoral vein: 1. IVC patent with cross-sectional area 289 sq mm. 2. Left common iliac vein widely patent with minimum cross-sectional area 171 sq mm. 3. Left external iliac vein patent with cross-sectional area 144 sq mm. Mild narrowing of the left iliofemoral venous junction noted with cross-sectional area 105 sq mm. 4. Left common femoral vein patent with cross-sectional area 164 mm prior. REGGIE 1 catheter then utilized to select the right common femoral vein. Power injection right ilio caval pelvic arteriogram performed DSA. Right pulmonary arteriogram: 1. Right common femoral vein, right external iliac vein, right common iliac vein patent without obvious stenosis or filling defects. 2. IVC patent with unopacified inflow from the left noted. Over the wire IVUS performed with cinegraphic capture from IVC to right common femoral vein: 1. Right common iliac vein patent with cross-sectional area 169 sq mm. 2. Right external iliac vein patent with minimum cross-sectional area 120 sq mm. 3. Right common femoral vein patent with cross-sectional area 187 mm. Hemostasis achieved right internal jugular venotomy with manual compression. Procedure Note Dejon Capone MD - 02/12/2024 IR VENOGRAM BILATERAL WITH IVUS, IR VENOGRAM INFERIOR VENA CAVA, IRULTRASOUND GUIDED VASCULAR ACCESS 02/12/2024 10:32 AM HISTORY: R60.0-Localized [id number]-CM left worse than right lowerextremity chronic edema with history of weeping blisters and venous ulceration rightlower limb. PROCEDURE: Informed consent obtained. Procedure performed by Dr. Dejon Capone..Moderate sedation with Versed and fentanyl administered by the interventionalradiology nurse. Both pre- and postprocedure patient evaluation andcardiorespiratory monitoring performed. Physician intra-service time 40 minutes. Fluoroscopytime 2.9 minutes, 2 exposures acquired. 14 mm Isovue 370 intravenous contrast utilized. Estimated blood loss less than 10 mL. Right neck prepped and draped usual sterile manner. Local anesthesia 1% lidocaine. Right internal jugular vein demonstrated patent with permanentimage obtained by ultrasound. Internal jugular vein accessed 4 Frenchmicropuncture set with ultrasound guidance. 10 [place] sheath placed over wire to rightatrium fluoroscopically. Direct transduced right atrial pressure elevated at24/12 (18) mmHg. Sheath advanced to the IVC. Coaxial REGGIE 1 catheter advanced to the leftcommon femoral vein fluoroscopically. Power injection left ilio caval pelvic arteriogram performed with DSA. Left pelvic arteriogram: 1. Left common femoral vein, left external iliac vein, left common iliacvein patent without obvious stenosis or filling defects. 2. IVC patent with unopacified inflow from the right noted. Over the wire IVUS performed with cinegraphic capture from IVC to leftcommon femoral vein: 1. IVC patent with cross-sectional area 289 sq mm. 2. Left common iliac vein widely patent with minimum cross-sectional [id number] sq mm. 3. Left external iliac vein patent with cross-sectional area 144 sq mm.Mild narrowing of the left iliofemoral venous junction noted withcross-sectional area 105 sq mm. 4. Left common femoral vein patent with cross-sectional area 164 mmprior. REGGIE 1 catheter then utilized to select the right common femoral vein.Power injection right ilio caval pelvic arteriogram performed DSA. Right pulmonary arteriogram: 1. Right common femoral vein, right external iliac vein, right commoniliac vein patent without obvious stenosis or filling defects. 2. IVC patent with unopacified inflow from the left noted. Over the wire IVUS performed with cinegraphic capture from IVC to rightcommon femoral vein: 1. Right common iliac vein patent with cross-sectional area 169 sq mm. 2. Right external iliac vein patent with minimum cross-sectional area 120sq mm. 3. Right common femoral vein patent with cross-sectional area 187 mm. Hemostasis achieved right internal jugular venotomy with manualcompression. IMPRESSION: Mild narrowing left iliofemoral venous junction. No significant venousstenosis or occlusion demonstrated. Dejon Capone MD IMG IR ORDERABLES Final Result * TSH REFLEX (02/09/2024 4:23 PM EDT) Only the most recent of3 resultswithin the time period is included. Pathologist [facility] [place] TSH Reflex 0.864 0.270 - 4.200 mcIU/mL 02/10/2024 1:41 AM EDT [employer] Blood VENOUS BLOOD / Unknown Venipuncture / Unknown 02/09/2024 4:23 PM EDT 02/09/2024 4:24 PM EDT Narrative [facility] - 02/10/2024 1:41 AM EDT Ingestion of daljit doses of biotin (>5 mg/day) taken within 8 hours of drawing blood sample can interfere with this immunoassay test. Vernell Bejarano APRN CHEMISTRY ORDERABLES Final Result [employer] [address] [facility] [address] [place] [id number] * LIPID SCREEN (02/09/2024 4:23 PM EDT) Only the most recent of3 resultswithin the time period is included. Pathologist [facility] [place] Cholesterol 109 <200 mg/dL 02/10/2024 1:41 AM EDT [employer] Comment: < 200 Desirable 200 - 239 Borderline High >= 240 High Triglyceride 82 <150 mg/dL 02/10/2024 1:41 AM EDT [employer] Comment: < 150 Normal 150 - 199 Borderline High 200 - 499 High >= 500 Very High HDL 42 >=40 mg/dL 02/10/2024 1:41 AM EDT [employer] Comment: > 60 Optimal 40 - 60 Acceptable < 40 Low LDL Calculated 51 <100 mg/dL 02/10/2024 1:41 AM EDT [employer] Comment: < 100 Optimal 100 - 129 Near or above optimal 130 - 159 Borderline High 160 - 189 High >= 190 Very High Non-HDL-C Calculated 67 <=129 mg/dL 02/10/2024 1:41 AM EDT [employer] Comment: <130 Desirable 130-159 Above Desirable 160-189 Borderline High 190-219 High >= 220 Very High Fasting Specimen? No None 024 1:41 AM EDT [facility] Blood VENOUS BLOOD / Unknown Venipuncture / Unknown 02/09/2024 4:23 PM EDT 02/09/2024 4:24 PM EDT Vernell Bejarano APRN CHEMISTRY ORDERABLES Final Result Performing Organization Address City/[facility]/ZIP Co de Phone Number [facility] [address] [facility], [place] [address] [facility] [address] [place] [phone] * (ABNORMAL) POCT EKG (01/29/2024 2:14 PM EDT) Only the most recent of2 resultswithin the time period is included. 01/29/2024 2:14 PM EDT Impressions [facility] - 01/29/2024 2:14 PM EDT Suspect underlying AF, demand V pacing, similar to previous ECGs Vernell Bejarano APRN POINT OF CARE CARDIOLOGY Fi nal Result Performing Organization Address City/[facility]/ZIP Co de Phone Number [facility] * SCANNED RHYTHM STRIPS (12/28/2023 9:02 PM EDT) Only the most recent of8 resultswithin the time period is included. Anatomical Region Laterality Modality Other 12/28/2023 9:02 PM EDT us Unknown Provider IMG ECG ORDERABLES Final Result * CARDIAC INTERROGATION DEVICE (12/27/2023 5:21 PM EDT) Only the most recent of5 resultswithin the time period is included. Anatomical Region Laterality Modality Other 12/27/2023 5:21 PM EDT us Unknown Provider IMG ECG ORDERABLES Final Result * FL < 1 HOUR (12/27/2023 2:06 PM EDT) Narrative PACS - 12/27/2023 2:07 PM EDT Fluoroscopy was performed. The radiologist was not in attendance. Images might be present or might not for this order. This dictation is being made for record keeping purposes. us René Brwon MD IMG FLUOROSCOPY ORDERAB LES Final Result PACS * XR HIP INTRAOPERATIVE RIGHT 2 VIEW (12/27/2023 2:06 PM EDT) Anatomical Region Laterality Modality Hip Radio Fluoroscop y 12/27/2023 2:06 PM EDT Impressions 12/27/2023 2:11 PM EDT Satisfactory intraoperative imaging. - Note: Radiology results need to be interpreted within a comprehensive clinical context. If you have questions about the radiology report, please contact the office of the ordering clinician. Narrative 12/27/2023 2:11 PM EDT XR HIP INTRAOPERATIVE RIGHT 2 VIEW, 12/27/2023 2:06 PM CLINICAL HISTORY: -hip replacement COMPARISON: 02/14/2023 PROCEDURE COMMENTS: 3 views of the hip obtained intraoperatively with portable equipment. FINDINGS: Intraoperative imaging shows satisfactory hardware positioning. No unexpected finding. Procedure Note Gayle Powers MD - 12/27/2023 XR HIP INTRAOPERATIVE RIGHT 2 VIEW, 12/27/2023 2:06 PM CLINICAL HISTORY: -hip replacement COMPARISON: 02/14/2023 PROCEDURE COMMENTS: 3 views of the hip obtained intraoperatively withportable equipment. FINDINGS: Intraoperative imaging shows satisfactory hardware positioning.No unexpected finding. IMPRESSION: Satisfactory intraoperative imaging. - Note: Radiology results need to be interpreted within a comprehensiveclinical context. If you have questions about the radiology report, please contactthe office of the ordering clinician. us René Brown MD IMG DIAGNOSTIC IMAGING ORDERABLES Final Result * INTRAOP AIRWAY PLACEMENT (12/27/2023 12:22 PM EDT) Narrative [facility] - 12/27/2023 12:22 PM EDT Evens Moe POLICE SPECIALIST 12/27/2023 12:38 PM Intraop Airway Placement: Date/Time: 12/27/2023 12:22 PM Induction type: IV Mask size: Standard adult Pre-Oxygenation: Standard Mask ventilation: Not attempted Technique: Video laryngoscope Laryngoscope blade: Smart Blade size: 4 Grade view: I Airway type: ETT- cuffed Intubation assist devices: Stylet 14fr Airway location: Oral Device size: 7.5mm Secured at: 24 cm Secured by: Tape Measured from: Lips Placement verified: Auscultation and End tidal CO2 Condition: Atraumatic and Unchanged Insertion attempts: 1 : Waits. Title: POLICE SPECIALIST Ventilation: BMV lidocaine 4 % ([id number]) laryngotracheal solution - Laryngotracheal 4 mL - 12/27/2023 12:22:00 PM: Howard MORALES ANESTHESIA Final Result [facility] [address] [place] [phone] * (ABNORMAL) COMPREHENSIVE METABOLIC PANEL (12/25/2023 3:57 PM EDT) Only the most recent of8 resultswithin the time period is included. Sodium 140 136 - 145 mmol/L 12/25/2023 5:07 PM EDT [facility] Potassium 3.9 3.5 - 5.0 mmol/L 12/25/2023 5:07 PM EDT [facility] Chloride 98 98 - 107 mmol/L 12/25/2023 5:07 PM EDT [facility] Total CO2 28 22 - 29 mmol/L 12/25/2023 5:07 PM EDT [facility] Anion Gap 14 7 - 16 mmol/L 12/25/2023 5:07 PM EDT [facility] Calcium 9.6 8.8 - 10.4 mg/dL 12/25/2023 5:07 PM EDT [facility] Glucose Lvl 113(H) 70 - 99 mg/dL 12/25/2023 5:07 PM EDT [facility] BUN 11 8 - 23 mg/dL 12/25/2023 5:07 PM EDT [facility] Creatinine 0.91 0.67 - 1.30 mg/dL 12/25/2023 5:07 PM EDT [facility] Albumin 4.3 3.2 - 4.6 gm/dL 12/25/2023 5:07 PM EDT [facility] Total Protein 7.5 6.4 - 8.3 gm/dL 12/25/2023 5:07 PM EDT [facility] Bili Total 1.2 0.2 - 1.4 mg/dL 12/25/2023 5:07 PM EDT [facility] ALT 17 <=41 U/L 12/25/2023 5:07 PM EDT [facility] AST 23 <=40 U/L 12/25/2023 5:07 PM EDT [facility] Alk Phos 114 40 - 129 U/L 12/25/2023 5:07 PM EDT [facility] eGFR (CKD-EPIcr 2020) 92 >=60 mL/min/1.7 3 m2 12/25/2023 5:07 PM EDT [facility] Comment:Estimated GFR was ca lculated using the CKD-EPIcr (2020) equation refit without race. The equation is recommended by the [employer] - [place] [employer]ph[employer] Task Force. Blood VENOUS BLOOD / Unknown Venipuncture / Unknown 12/25/2023 3:57 PM EDT 12/25/2023 4:01 PM EDT us René Brown MD CHEMISTRY ORDERABLES Fi nal Result [facility] [address] [facility], [place] [address] [facility] [address] [place] [address] * XR HIP RIGHT 4 VIEW (11/23/2023 2:31 PM EDT) Narrative [facility], [facility] - 11/23/2023 2:34 PM EDT Please see physician's note from office encounter for x-ray imaging result us René Brown MD IMG DIAGNOSTIC IMAGING ORDERABLES Final Result * SCANNED EKG (10/04/2023 12:29 PM EDT) Only the most recent of6 resultswithin the time period is included. Anatomical Region Laterality Modality Other 10/04/2023 12:2 9 PM EDT us Unknown Provider IMG ECG ORDERABLES Final Result * CORONARY ANGIOGRAM WITH GRAFTS, LEFT HEART CATH (10/03/2023 12:47 PM EDT) Only the most recent of3 resultswithin the time period is included. Addenda Addendum by Vinnie Crowell MD on 10/03/2023 3:00 PM EDT Ramus lesion is 100% stenosed. Prox LAD to Mid LAD lesion is 60% stenosed. 1. Stable coronary artery disease. - Patent vein graft to LAD - Patent vein graft to ramus 2. LVEDP was normal at 11 mmHg. - False positive stress test - Medical management of chronic coronary artery disease - Patient is okay to proceed with hip surgery without any additional testing -Patient is okay to be discharged today Socrates Procedure Details Procedural indication: abnormal nuke Procedural consent: Risks and benefits reviewed directly with patient prior to the procedure Procedural details: Patient was prepped and draped in normal sterile fashion the right radial site was anesthetized using lidocaine. The right radial artery was accessed using Seldinger technique and a 6 [place]se glide sheath was advanced into the radial artery without any complications. The JR catheter was advanced over the wire and placed into the LV cavity. Initial pressure measurements were obtained. A hand-injection LV gram was performed. The catheter was then withdrawn across the aortic valve. The right coronary artery was selectively engaged. Multiple angiographic views obtained. We then engaged the vein graft to the ramus. Multiple angiographic views obtained. We then engage the vein graft to the LAD with multiple angiographic views obtained. This catheter was then exchanged for a JL 3.5 catheter. The left main was selectively engaged. Multiple angiographic views obtained. Catheter was disengaged and withdrawn from the body. A TR band was placed and appropriate hemostasis was achieved after sheath removal. Complications: None Blood loss: 10 mL Coronary Findings Diagnostic Dominance: Right Left Main: The vessel exhibits minimal luminal irregularities. Left Anterior Descending: Prox LAD to Mid LAD lesion is 60% stenosed. Ramus Intermedius: Ramus lesion is 100% stenosed. Left Circumflex: The vessel exhibits minimal luminal irregularities. Right Coronary Artery: The vessel exhibits minimal luminal irregularities. Right Posterior Descending Artery: The vessel exhibits minimal luminal irregularities. WILD Graft To Mid LAD Graft To Ramus Intervention No interventions have been documented. Left Heart Pressures LVDP / pre a : 11 mmHg Amy Martinez APRN CARDIAC CATH ORDERABLES Edited Result - Final Performing Organization Address [facility] Co de Phone Number [facility] CARDIOLOGY * PUMPING STATION SUPERVISOR HEMODYNAMIC WAVEFORMS (10/03/2023 12:09 PM EDT) Only the most recent of3 resultswithin the time period is included. 10/03/2023 12:0 9 PM EDT us Vinnie Crowell MD CARDIAC CATH ORDERABLES E dited Result - Final Performing Organization Address City/[facility] Co de Phone Number [facility] [address] [place] [phone] * ECG AND WAVEFORMS - TELEMETRY (10/03/2023 7:05 AM EDT) Only the most recent of36 resultswithin the time period is included. ECG INTERPRET Ventricular Paced [facility] 10/03/2023 7:05 AM EDT Narrative [facility] - 10/03/2023 8:15 AM EDT /AB/HICUITY/ROUTINE QRS 0.20 QT 0.48 See Clinical Report link for waveform capture us Unknown Provider POINT OF CARE CARDIOLOGY Final Result [facility] [address] [place] [phone] * NM MYOCARDIAL PERFUSION SPECT STRESS AND REST (10/02/2023 11:24 AM EDT) Anatomical Region Laterality Modality Nuclear Medicine 10/02/2023 9:46 AM EDT Impressions 10/02/2023 4:59 PM EDT Conclusions * Left ventricular perfusion is abnormal. * Large size, intermediate to severe intensity perfusion defect at stress and rest in the lateral and inferior myocardium. There is partial reversibility in the basal to mid inferolateral consistent with mixed ischemia and infarct. There is no reversibility in the basal to mid anterolateral, apical lateral, mid to apical inferior and apical myocardium consistent with infarct. * Overall left ventricular systolic function was mildly reduced at 43% with hypokinesis of the inferior and anterolateral myocardium. * Scan indicates high risk for cardiac events. Narrative Procedure Note Colton Varner MD - 10/02/2023 IMPRESSION Conclusions * Left ventricular perfusion is abnormal. * Large size, intermediate to severe intensity perfusion defect atstress and rest in the lateral and inferior myocardium. There is partial reversibility in the basal to mid inferolateral consistent with mixedischemia and infarct. There is no reversibility in the basal to midanterolateral, apical lateral, mid to apical inferior and apical myocardium consistentwith infarct. * Overall left ventricular systolic function was mildly reduced at 43%with hypokinesis of the inferior and anterolateral myocardium. * Scan indicates high risk for cardiac events. us Amy Martinez APRN IMG NM CARDIAC ORDERABLES Coco l Result * ST STRESS TEST LEXISCAN (10/02/2023 10:51 AM EDT) Anatomical Region Laterality Modality Cardiac Stress T esting 10/02/2023 10:2 6 AM EDT Impressions 10/02/2023 3:[address] 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 Lexiscan 0.4 mg was given IV push at 30 seconds into protocol. 2. Lexiscan injection was done without low level exercise. (PHYSICALLY UNABLE TO WALK ON TREADMILL). 3. Was the test changed from Exercise to Lexiscan? no 4. Termination of test due to protocol completion. 5. Symptoms: STATED HE HAS FEET NUMBNESS INTERMITTENTLY ALL THE TIME : RESOLVED IN RECOVERY. SOB & SWEATY : RESOLVED IN RECOVERY. 6. NO Aminophylline given. 7. Nuclear Imaging reported separately. SEE WORKSHEET FOR CORRECTED BLOOD PRESSURES, WORKSHEET IS SCANNED IN The Online 401 UNDER THE CARDIOLOGY TAB AND MEDIA TAB AND IS LABELED GXT. Physician Interpretation Resting ECG: Atrial fibrillation with PVCs Possible anteroseptal infarct Inferior STT-wave abnormality Arrhythmias: Baseline atrial fibrillation with PVCs Conclusion: Non-diagnostic for ischemia due to baseline STT abnormalities and Lexiscan stress Electronically Signed On 10-02-2023 15:12:59 EDT by Colton Varner Narrative Procedure Note Colton Varner MD - 10/02/[address] 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 Lexiscan 0.4 mg was given IV push at 30 seconds into protocol. 2. Lexiscan injection was done without low level exercise. (PHYSICALLY UNABLE TO WALK ON TREADMILL). 3. Was the test changed from Exercise to Lexiscan? no 4. Termination of test due to protocol completion. 5. Symptoms: STATED HE HAS FEET NUMBNESS INTERMITTENTLY ALL THE TIME : RESOLVED IN RECOVERY. SOB & SWEATY : RESOLVED IN RECOVERY. 6. NO Aminophylline given. 7. Nuclear Imaging reported separately. SEE WORKSHEET FOR CORRECTED BLOOD PRESSURES, WORKSHEET IS SCANNED INEPIC UNDER THE CARDIOLOGY TAB AND MEDIA TAB AND IS LABELED GXT. PhysicianInterpretation Resting ECG: Atrial fibrillation with PVCs Possible anteroseptal infarct Inferior STT-wave abnormality Arrhythmias: Baseline atrial fibrillation with PVCs Conclusion: Non-diagnostic for ischemia due to baseline STT abnormalities andLexiscan stress Electronically Signed On 10-02-2023 15:12:59 EDT by Colton Varner Amy Martinez APRN IMG STRESS ORDERABLES Final Re sult * [facility] LOWER EXTREMITY ARTERIAL DUPLEX COMPLETE (10/01/2023 4:27 PM EDT) Only the most recent of2 resultswithin the time period is included. Anatomical Region Laterality Modality Vascular, Leg Vascular Imaging 10/01/2023 3:43 PM EDT Impressions 10/02/2023 8:12 AM EDT Conclusions * Triphasic Doppler flow pattern is noted in the bilateral common femoral arteries. * The bilateral great digit PPG waveforms are severely dampened, and the pressures are above the healing index. * Right: * There is a right mid superficial femoral artery lesion with 20-49% stenosis. * There is a right distal popliteal artery lesion with 50-99% stenosis. * Right ISABEL (0.90) is in the mild claudication range. * Left: * There is a left mid posterior tibial artery lesion with 50-99% stenosis. * Left ISABEL (0.92) is in the mild claudication range. Narrative Procedure Note Dejon Capone MD - 10/02/2023 IMPRESSION Conclusions * Triphasic Doppler flow pattern is noted in the bilateral commonfemoral arteries. * The bilateral great digit PPG waveforms are severely dampened, andthe pressures are above the healing index. * Right: * There is a right mid superficial femoral artery lesion with 20-49% stenosis. * There is a right distal popliteal artery lesion with 50-99%stenosis. * Right ISABEL (0.90) is in the mild claudication range. * Left: * There is a left mid posterior tibial artery lesion with 50-99%stenosis. * Left ISABEL (0.92) is in the mild claudication range. Evangelina Yanes Ren ROBERTSON IM VASCULAR ORDERABLES Fi nal Result * (ABNORMAL) CBC (10/01/2023 7:26 AM EDT) Only the most recent of12 resultswithin the time period is included. WBC 8.9 3.7 - 10.3 x10(3)/mcL 10/01/2023 7:51 AM EDT [facility] RBC 4.56(L) 4.60 - 6.10 x10(6)/mcL 10/01/2023 7:51 AM EDT [facility] Hgb 14.6 13.7 - 17.5 g/dL 10/01/2023 7:51 AM EDT [facility] Hct 43.4 40.0 - 51.0 % 10/01/2023 7:51 AM EDT [facility] MCV 95.2 80.0 - 100.0 fL 10/01/2023 7:51 AM EDT [facility] MCH 32.0 26.0 - 34.0 pg 10/01/2023 7:51 AM EDT [facility] MCHC 33.6 30.7 - 35.5 g/dL 10/01/2023 7:51 AM EDT [facility] RDW 13.3 <=14.9 % 10/01/2023 7:51 AM EDT [facility] [employer], Dovo Platelet 203 155 - 369 x10(3)/mcL 10/01/2023 7:51 AM EDT [facility] [employer], [facility] MPV 10.0 8.8 - 12.5 fL 10/01/2023 7:51 AM EDT [facility] [employer] [facility] Blood VENOUS BLOOD / Unknown Venipuncture / Unknown 10/01/2023 7:26 AM EDT 10/01/2023 7:42 AM EDT Mayank Romero MD HEMATOLOGY ORDERABLES Final R esult Performing Organization Address City/[facility]/ZIP Co de Phone Number [facility] [employer] [address] , [place] [address] * MAGNESIUM LEVEL (10/01/2023 7:26 AM EDT) Only the most recent of4 resultswithin the time period is included. Pathologist [facility] [place] Magnesium 2.2 1.6 - 2.4 mg/dL 10/01/2023 8:17 AM EDT [facility] [employer], [facility] Blood VENOUS BLOOD / Unknown Venipuncture / Unknown 10/01/2023 7:26 AM EDT 10/01/2023 7:42 AM EDT Mayank Romero MD CHEMISTRY ORDERABLES Final Re sult Performing Organization Address City/[facility]/ZIP Co de Phone Number [facility] , [place] [address] * TROPONIN-T HIGH SENSITIVITY 2HR (09/30/2023 5:08 PM EDT) Only the most recent of2 resultswithin the time period is included. yb-yTrhzmhcs-R 2HR 12 <22 ng/L 09/30/2023 5:28 PM EDT [facility] Comment:See the website sandyo w for rule out [place] care pathway, conditions other than AMI that can cause elevated hs cTnT, and comparison of values from the 4th and 5th generation David tests. https://[email or web address]/topic/clinical-answers/gnt-54961536/cpm-203 39689 hs-cTnT 2Hr Delta from Baseline 0 <4 ng/L 09/30/2023 5:28 PM EDT [facility] Blood VENOUS BLOOD / Unknown Venipuncture / Unknown 09/30/2023 5:08 PM EDT 09/30/2023 5:10 PM EDT Narrative [facility] - 09/30/2023 5:28 PM EDT Ingestion of daljit doses of biotin (>5 mg/day) taken within 8 hours of drawing blood sample can interfere with this immunoassay test. [employer] CHEMISTRY ORDERABLES Final Result Performing Organization Address [facility] Co de Phone Number [facility] [address] [place] [address] * TROPONIN-T HIGH SENSITIVITY BASELINE W/ REFLEX (09/30/2023 3:28 PM EDT) Only the most recent of5 resultswithin the time period is included. ym-yTfnlilum-G 12 <22 ng/L 09/30/2023 3:48 PM EDT [facility] Comment:See the website tequila torres for rule out [place] care pathway, conditions other than AMI that can cause elevated hs cTnT, and comparison of values from the 4th and 5th generation David tests. https://[email or web address]/topic/clinical-answers/gnt-90189877/cpm-203 04998 Blood VENOUS BLOOD / Unknown Venipuncture / Unknown 09/30/2023 3:28 PM EDT 09/30/2023 3:30 PM EDT Narrative [facility] - 09/30/2023 3:48 PM EDT Ingestion of daljit doses of biotin (>5 mg/day) taken within 8 hours of drawing blood sample can interfere with this immunoassay test. [employer] CHEMISTRY ORDERABLES Final Result Performing Organization Address City/[facility]/ZIP Co de Phone Number [facility] [address] [place] [address] * POTASSIUM REPEAT (09/30/2023 3:28 PM EDT) Potassium 4.9 3.5 - 5.0 mmol/L 09/30/2023 3:43 PM EDT [facility] Blood VENOUS BLOOD / Unknown Venipuncture / Unknown 09/30/2023 3:28 PM EDT 09/30/2023 3:30 PM EDT us Andrae Hennessyradha [employer] CHEMISTRY ORDERABLES Final Result [facility] [address] [place] [address] * XR CHEST AP PORTABLE (09/30/2023 3:24 PM EDT) Only the most recent of14 resultswithin the time period is included. Anatomical Region Laterality Modality Chest Radiographic Crystal ging 09/30/2023 3:24 PM EDT Impressions 09/30/2023 3:32 PM EDT There is bibasilar subsegmental atelectasis. - Note: Radiology results need to be interpreted within a comprehensive clinical context. If you have questions about the radiology report, please contact the office of the ordering clinician. Narrative 09/30/2023 3:32 PM EDT XR CHEST AP PORTABLE, 09/30/2023 3:24 PM CLINICAL HISTORY: -Chest Pain COMPARISON: 10/28/2019. PROCEDURE COMMENTS: AP portable technique. FINDINGS: Support devices: The left pacemaker/AICD and leads are unchanged in position. There is stable elevation of the right hemidiaphragm. There is mild subsegmental atelectasis at both lung bases. There is no pneumothorax. The heart and mediastinal contours are unchanged. There has been a prior sternotomy and valve replacement. Procedure Note Debra Rodriguez MD - 09/30/2023 XR CHEST AP PORTABLE, 09/30/2023 3:24 PM CLINICAL HISTORY: -Chest Pain COMPARISON: 10/28/2019. PROCEDURE COMMENTS: AP portable technique. FINDINGS: Support devices: The left pacemaker/AICD and leads are unchanged inposition. There is stable elevation of the right hemidiaphragm. There is mildsubsegmental atelectasis at both lung bases. There is no pneumothorax. The heart and mediastinal contours are unchanged. There has been a prior sternotomy andvalve replacement. IMPRESSION: There is bibasilar subsegmental atelectasis. - Note: Radiology results need to be interpreted within a comprehensiveclinical context. If you have questions about the radiology report, please contactthe office of the ordering clinician. Andrae Tejada APRN IMG DIAGNOSTIC IMAGING ORDE RABLES Final Result * (ABNORMAL) BLOOD GAS, VENOUS (09/30/2023 2:53 PM EDT) pH Venous 7.41 7.32 - 7.42 pH 09/30/2023 3:02 PM EDT [facility] pCO2 Venous 47 41 - 51 mmHg 09/30/2023 3:02 PM EDT [facility] pO2 Venous 57(H) 25 - 40 mmHg 09/30/2023 3:02 PM EDT [facility] Comment:Interpret with cauti on. Not recommended to evaluate patient's oxygenation status. Base Excess Wil 3.9 mmol/L 3:02 PM EDT [facility] Hco3 Venous 28.9(H) 24.0 - 28.0 mmol/L 09/30/2023 3:02 PM EDT [facility] CO2 Total Wil 25 25 - 29 mmol/L 09/30/2023 3:02 PM EDT [facility] O2 Sat. Venous 87.7(H) 40.0 - 70.0 % 09/30/2023 3:02 PM EDT [facility] Inspired O2 RA 09/30/2023 3:02 PM EDT [facility] Blood VENOUS BLOOD / Unknown Venipuncture / Unknown 09/30/2023 2:53 PM EDT 09/30/2023 2:58 PM EDT Andrae Tejada [employer] CHEMISTRY ORDERABLES Final Result [facility] [address] [facility], [address] [place], [place] [id number] * (ABNORMAL) NT PROBNP (09/30/2023 2:53 PM EDT) Only the most recent of3 resultswithin the time period is included. NT Pro-BNP 701(H) <=229 pg/mL 09/30/2023 3:14 PM EDT [facility] Blood VENOUS BLOOD / Unknown Venipuncture / Unknown 09/30/2023 2:53 PM EDT 09/30/2023 2:54 PM EDT Narrative [facility] - 09/30/2023 3:14 PM EDT An NT pro-BNP level less than 300 pg/mL in any patient, regardless of age, effectively rules out acute CHF with a 99% negative predictive value. Ingestion of daljit doses of biotin (>5 mg/day) taken within 8 hours of drawing blood sample can interfere with this immunoassay test. Andrae Tejada APRN CHEMISTRY ORDERABLES Final Result [facility] [address] [place] [address] * EK EKG 12 LEAD (09/30/2023 1:57 PM EDT) Only the most recent of12 resultswithin the time period is included. Anatomical Region Laterality Modality Electrocardiogra phy 09/30/2023 2:04 PM EDT Impressions 09/30/2023 5:[address] [facility] Test Date: 2023-09-30 Pat Name: ODILIA CERON Department: DEPID Room: Gender: Male Superintendent Stevedoring: Rt : 1955 Requested By: [facility] Order Number: [id number] Reading MD: Mike Mullen MD Measurements Intervals [place] Rate: 72 P: TX: QRS: 51 QRSD: 100 T: 29 QT: 360 QTc: 394 Interpretive Statements Probable underlying atrial fibrillatrion Demand [employer]LECTRONIC VENTRICULAR PACEMAKER Nonspecific ST abnormalites. Electronically Signed On 09-30-2023 17:48:29 EDT by Mike Mullen MD Narrative Procedure Note Blake Mullen MD - 09/30/[address] 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 Electronically Signed On 09-30-2023 17:48:29 EDT by Mike Mullen MD Amber Fuller MD IMG ECG ORDERABLES Final Re sult * ND US LOWER EXTREMITY ARTERIAL PHYSIOLOGICAL (05/31/2023 3:00 PM EST) Only the most recent of2 resultswithin the time period is included. Anatomical Region Laterality Modality Vascular, Leg Vascular Imaging 05/31/2023 2:13 PM EST Impressions 05/31/2023 5:56 PM EST Conclusions * Pressure gradients at the ankles indicate bilateral dpvg-dq-vwdzgiyf tibial disease. Mildly dampened PVRs at calf level indicate mild popliteal and/or tibioperoneal trunk disease, bilaterally. * Rt ISABEL's: 1.08 PT (normal range), 0.65 DP (low end of moderate claudication range). * Lt ISABEL's: 0.84 PT (mild claudication range), 0.65 DP (low end of moderate claudication range). * The right first digit pressure is above the healing index. The left first digit pressure is just below the healing index. PPG waveforms are severely dampened in the bilateral first digits. Narrative Procedure Note Cuca Jones MD - 05/31/2023 IMPRESSION Conclusions * Pressure gradients at the ankles indicate bilateral kazo-xh-spmtpbuu tibial disease. Mildly dampened PVRs at calf level indicate mildpopliteal and/or tibioperoneal trunk disease, bilaterally. * Rt ISABEL's: 1.08 PT (normal range), 0.65 DP (low end of moderate claudication range). * Lt ISABEL's: 0.84 PT (mild claudication range), 0.65 DP (low end ofmoderate claudication range). * The right first digit pressure is above the healing index. The leftfirst digit pressure is just below the healing index. PPG waveforms areseverely dampened in the bilateral first digits. Andreina Stephens [employer] IMG VASCULAR ORDERABLES Final Result * CREATININE (01/09/2023 1:55 PM EDT) Creatinine 0.81 0.67 - 1.30 mg/dL 01/09/2023 2:22 PM EDT [facility] eGFR (CKD-EPIcr 2020) 97 >=60 mL/min/1.7 3 m2 01/09/2023 2:22 PM EDT [facility] Comment:Estimated GFR was ca lculated using the CKD-EPIcr (2020) equation refit without race. The equation is recommended by the [employer] - [place] [employer]ph[employer] Task Force. Blood VENOUS BLOOD / Unknown Venipuncture / Unknown 01/09/2023 1:55 PM EDT 01/09/2023 1:55 PM EDT Louis Yadav MD CHEMISTRY ORDERABLES Final Resu lt [facility] [address] [place] [address] * MRI LUMBAR SPINE W WO CONTRAST (01/09/2023 12:59 PM EDT) Anatomical Region Laterality Modality Spine, L-spine Magnetic Resonan ce 01/09/2023 12:5 9 PM EDT Impressions 01/09/2023 3:39 PM EDT 1. Progressive degenerative disc disease at the L2-L3 level with increased moderate to severe right-sided foraminal narrowing encroaching upon the exiting right L2 nerve root. 2. Bilateral facet joint synovial enhancement at the L2-L3 level indicative of degenerative synovitis. 3. Remaining findings are otherwise similar to the previous examination as detailed above. - Note: Radiology results need to be interpreted within a comprehensive clinical context. If you have questions about the radiology report, please contact the office of the ordering clinician. Narrative 01/09/2023 3:39 PM EDT MRI LUMBAR SPINE WITH AND WITHOUT CONTRAST, 01/09/2023 12:59 PM CLINICAL HISTORY: M54.16-Radiculopathy, lumbar [id number]. COMPARISON: 09/25/2017, 10/15/2021 PROCEDURE COMMENTS: Multiplanar multiecho MR imaging of the lumbar spine with and without gadolinium. Gadolinium contrast given as recorded in Epic. FINDINGS: Progressive intervertebral space narrowing at the L2-L3 level. Severe decubitus space narrowing at L3-L4 and L4-L5 similar to prior examination. Vertebral body heights are maintained. There is Modic type I endplate signal alteration at the L2-L3 level, slightly increased from prior examination. Degenerative retrolisthesis of L1 on L2 measuring 2 mm and retrolisthesis of L2 on L3 measuring 4 mm. Anterolisthesis of L3 on L4 measuring 3 mm. Marrow signal: Modic type-1 and/or type-2 marrow signal change involves one or more levels between L3 and S1. See details above. Level by level analysis: L1-L2: Unchanged disc bulge with superimposed left-sided radicular/foraminal disc protrusion contributing to mild left lateral recess crowding and mild inferior left foraminal narrowing. L2-L3: Progressive right subarticular disc extrusion with caudal migration of 5 mm superimposed upon a disc bulge contributing to increased moderate to severe right-sided foraminal narrowing. Mild canal and mild left foraminal narrowing similar to prior examination. L3-L4: Postoperative level with previous laminectomy. Unchanged disc bulge and osteophytic ridging contributing to mild inferior foraminal narrowing bilaterally. Mild right lateral recess crowding. Canal and right lateral recess are patent. There is bilateral facet arthropathy with superimposed enhancement of the synovium in this distribution indicative of synovitis. L4-L5: Asymmetric left disc bulge and osteophytic ridging with mild bilateral facet arthropathy, similar to prior examination contributing to severe left and moderate right foraminal narrowing. L5-S1: Unchanged disc bulge with advanced bilateral facet arthropathy contributing to moderate to severe bilateral foraminal narrowing. Procedure Note Julienne Land MD - 01/09/2023 MRI LUMBAR SPINE WITH AND WITHOUT CONTRAST, 01/09/2023 12:59 PM CLINICAL HISTORY: M54.16-Radiculopathy, lumbar [id number]. COMPARISON: 09/25/2017, 10/15/2021 PROCEDURE COMMENTS: Multiplanar multiecho MR imaging of the lumbar spinewith and without gadolinium. Gadolinium contrast given as recorded in Epic. FINDINGS: Progressive intervertebral space narrowing at the L2-L3 level. Severedecubitus space narrowing at L3-L4 and L4-L5 similar to prior examination. Vertebralbody heights are maintained. There is Modic type I endplate signal alterationat the L2-L3 level, slightly increased from prior examination. Degenerative retrolisthesis of L1 on L2 measuring 2 mm and retrolisthesis of L2 on L3 measuring 4 mm. Anterolisthesis of L3 on L4 measuring 3 mm. Marrow signal: Modic type-1 and/or type-2 marrow signal change involvesone or more levels between L3 and S1. See details above. Level by level analysis: L1-L2: Unchanged disc bulge with superimposed left-sidedradicular/foraminal disc protrusion contributing to mild left lateral recess crowding andmild inferior left foraminal narrowing. L2-L3: Progressive right subarticular disc extrusion with caudal migrationof 5 mm superimposed upon a disc bulge contributing to increased moderate tosevere right-sided foraminal narrowing. Mild canal and mild left foraminalnarrowing similar to prior examination. L3-L4: Postoperative level with previous laminectomy. Unchanged disc bulgeand osteophytic ridging contributing to mild inferior foraminal narrowing bilaterally. Mild right lateral recess crowding. Canal and right lateralrecess are patent. There is bilateral facet arthropathy with superimposedenhancement of the synovium in this distribution indicative of synovitis. L4-L5: Asymmetric left disc bulge and osteophytic ridging with mildbilateral facet arthropathy, similar to prior examination contributing to severeleft and moderate right foraminal narrowing. L5-S1: Unchanged disc bulge with advanced bilateral facet arthropathy contributing to moderate to severe bilateral foraminal narrowing. IMPRESSION: 1. Progressive degenerative disc disease at the L2-L3 level withincreased moderate to severe right-sided foraminal narrowing encroaching upon theexiting right L2 nerve root. 2. Bilateral facet joint synovial enhancement at the L2-L3 levelindicative of degenerative synovitis. 3. Remaining findings are otherwise similar to the previous examinationas detailed above. - Note: Radiology results need to be interpreted within a comprehensiveclinical context. If you have questions about the radiology report, please contactthe office of the ordering clinician. us Louis Yadav MD IMG MRI ORDERABLES Final Result * SCANNED RADIOLOGY REPORT (01/04/2023 10:56 AM EDT) Only the most recent of5 resultswithin the time period is included. Anatomical Region Laterality Modality Magnetic Resonan ce 01/04/2023 10:5 6 AM EDT us Unknown Provider IMG DIAGNOSTIC IMAGING ORDERABL ES Final Result * (ABNORMAL) EMG (09/08/2022) Impressions SEP OFFICE - 09/08/2022 This is an abnormal study. 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 There is no evidence of a left cervical radiculopathy on this study. Yung Hunter M.D. Diplomate, [place] [employer] Narrative SEP OFFICE - 09/08/2022 NCS Summary: Absent left median and median palmar sensory responses. Normal left dorsal ulnar cutaneous, ulnar, radial, and ulnar palmar sensory responses. Prolonged and reduced left median motor response. Normal left ulnar motor response EMG Summary: Normal needle electrode examination of the left upper extremity and cervical paraspinal muscles (patient states he has not taken Eliquis in 2 weeks so paraspinal muscles performed). us Alvarez Jaimes MD NEUROLOGY ORDERABLES Edit ed Result - Final SEP OFFICE * MRI LUMBAR SPINE WO CONTRAST (10/15/2021 3:01 PM EDT) Only the most recent of3 resultswithin the time period is included. Anatomical Region Laterality Modality Spine, L-spine Magnetic Resonan ce 10/15/2021 3:01 PM EDT Impressions 10/15/2021 3:56 PM EDT Multilevel discogenic disease with foraminal narrowing as described. L4-L5 level combination of factors producing moderate to severe central stenosis. L2-L3 level mild central stenosis. Renal narrowing at multiple levels representing potential mechanisms of nerve root impingement. Please note above discussion. - Note: Radiology results need to be interpreted within a comprehensive clinical context. If you have questions about the radiology report, please contact the office of the ordering clinician. Narrative 10/15/2021 3:56 PM EDT MRI LUMBAR SPINE WITHOUT CONTRAST, 10/15/2021 3:01 PM CLINICAL HISTORY: M54.16-Radiculopathy, lumbar [id number]. COMPARISON: 09/25/2017 MR lumbar spine PROCEDURE COMMENTS: Multiplanar multiecho MR imaging of the lumbar spine without contrast. FINDINGS: No acute spine fracture. Normal conus position and signal. No concerning marrow replacement. Large hemangioma involving much of the L3 vertebral body again noted. Signal alteration seen in the discs at all levels visualized, consistent with degenerative disc disease. There is narrowing of the disc interspaces from L3 1 through L5. Slight retrolisthesis of L1 on L2 and L2 on L3 felt to be degenerative. Level by level analysis: L1-L2: Broad-based discogenic disease/pseudodisc bulging with mild ventral flattening the thecal sac. Moderate narrowing of left L1 neural foramen representing potential mechanism of nerve root impingement. L2-L3: Broad-based discogenic disease/pseudodisc bulging with ventral flattening of the thecal sac. Mild facet arthropathy and ligamentum flavum hypertrophy. Mild to moderate narrowing of both L2 neural foramina. Mild to moderate narrowing of the nerve root recesses. Epidural fat noted. Combination of these factors producing mild central stenosis. L3-L4: Broad-based discogenic disease with associated spurring and ventral flattening of the thecal sac. Epidural fat appears generous. Mild to moderate facet arthropathy and ligamentum flavum hypertrophy. Combination these factors producing moderate to marked central stenosis, best seen on sagittal views. Moderate narrowing of right L3 neural foramen representing potential mechanism of nerve root impingement. Mild to moderate narrowing of left L3 neural foramen. L4-L5: Broad-based discogenic disease with associated this margin spurring and ventral flattening of the thecal sac. Mild to moderate facet arthropathy and ligamentum flavum hypertrophy. Moderate to severe narrowing of left L4 neural foramen and moderate narrowing of right L4 neural foramen representing potential mechanisms of nerve root impingement. Mild to moderate narrowing of nerve root recesses. L5-S1: Broad-based discogenic disease with mild indentation of the thecal sac. Mild to moderate facet arthropathy. Moderate right and moderate to marked left L5 foraminal narrowing representing potential mechanisms of nerve root impingement. Procedure Note Alireza Valencia MD - 10/15/2021 MRI LUMBAR SPINE WITHOUT CONTRAST, 10/15/2021 3:01 PM CLINICAL HISTORY: M54.16-Radiculopathy, lumbar [id number]-CM. COMPARISON: 09/25/2017 MR lumbar spine PROCEDURE COMMENTS: Multiplanar multiecho MR imaging of the lumbar spinewithout contrast. FINDINGS: No acute spine fracture. Normal conus position and signal. No concerningmarrow replacement. Large hemangioma involving much of the L3 vertebral body again noted. Signal alteration seen in the discs at all levels visualized, consistentwith degenerative disc disease. There is narrowing of the disc interspaces from L3 1 through L5. Slight retrolisthesis of L1 on L2 and L2 on L3 felt to be degenerative. Level by level analysis: L1-L2: Broad-based discogenic disease/pseudodisc bulging with mildventral flattening the thecal sac. Moderate narrowing of left L1 neural foramen representing potential mechanism of nerve root impingement. L2-L3: Broad-based discogenic disease/pseudodisc bulging with ventralflattening of the thecal sac. Mild facet arthropathy and ligamentum flavumhypertrophy. Mild to moderate narrowing of both L2 neural foramina. Mild to moderate narrowing of the nerve root recesses. Epidural fat noted. Combination ofthese factors producing mild central stenosis. L3-L4: Broad-based discogenic disease with associated spurring andventral flattening of the thecal sac. Epidural fat appears generous. Mild tomoderate facet arthropathy and ligamentum flavum hypertrophy. Combination thesefactors producing moderate to marked central stenosis, best seen on sagittalviews. Moderate narrowing of right L3 neural foramen representing potentialmechanism of nerve root impingement. Mild to moderate narrowing of left L3 neuralforamen. L4-L5: Broad-based discogenic disease with associated this margin spurringand ventral flattening of the thecal sac. Mild to moderate facet arthropathyand ligamentum flavum hypertrophy. Moderate to severe narrowing of left Z6zjihch foramen and moderate narrowing of right L4 neural foramen representingpotential mechanisms of nerve root impingement. Mild to moderate narrowing of nerveroot recesses. L5-S1: Broad-based discogenic disease with mild indentation of the thecalsac. Mild to moderate facet arthropathy. Moderate right and moderate to markedleft L5 foraminal narrowing representing potential mechanisms of nerve root impingement. IMPRESSION: Multilevel discogenic disease with foraminal narrowing as described. L4-L5 level combination of factors producing moderate to severe central stenosis. L2-L3 level mild central stenosis. Renal narrowing at multiple levels representing potential mechanisms ofnerve root impingement. Please note above discussion. - Note: Radiology results need to be interpreted within a comprehensiveclinical context. If you have questions about the radiology report, please contactthe office of the ordering clinician. us Louis Yadav MD IMG MRI ORDERABLES Final Result * XR KNEE LEFT AP LATERAL AND AXIAL (07/12/2021 2:56 PM EST) Anatomical Region Laterality Modality Knee Radiographic Crystal ging 07/12/2021 2:56 PM EST Impressions 07/12/2021 3:45 PM EST No acute abnormality of the knee. - Note: Radiology results need to be interpreted within a comprehensive clinical context. If you have questions about the radiology report, please contact the office of the ordering clinician. Narrative 07/12/2021 3:45 PM EST XR KNEE LEFT AP LATERAL AND AXIAL, 07/12/2021 2:56 PM CLINICAL HISTORY: M25.562-Pain in left [id number]-EWA-18-CM G89.29-Other chronic nbbj-DEJ-36-CM Z96.659-Presence of unspecified artificial knee [id number]-CUG-24-CM COMPARISON: None. PROCEDURE COMMENTS: XR KNEE LEFT AP LATERAL AND AXIAL FINDINGS: No evidence of knee fracture or malalignment. No significant effusion. Status post knee replacement with intact prosthesis. Procedure Note Chilo Evans MD - 07/12/2021 XR KNEE LEFT AP LATERAL AND AXIAL, 07/12/2021 2:56 PM CLINICAL HISTORY: M25.562-Pain in left fvvz-GZR-44-CM G89.29-Other chronic bmhj-XWG-61-CM Z96.659-Presence of unspecified artificial knee kwsse-JPK-60-CM COMPARISON: None. PROCEDURE COMMENTS: XR KNEE LEFT AP LATERAL AND AXIAL FINDINGS: No evidence of knee fracture or malalignment. No significanteffusion. Status post knee replacement with intact prosthesis. IMPRESSION: No acute abnormality of the knee. - Note: Radiology results need to be interpreted within a comprehensiveclinical context. If you have questions about the radiology report, please contactthe office of the ordering clinician. us Gaye Marie MD IMG DIAGNOSTIC IMAG ING ORDERABLES Final Result * (ABNORMAL) HEMOGLOBIN A1C (08/11/2020 1:43 PM EST) Hgb A1C 5.7(H) 4.2 - 5.6 % 08/11/2020 10:46 PM EST [employer] [employer] Est. Avg Glucose 117 mg/dL 08/11/2020 10:46 PM EST [employer] Blood VENOUS BLOOD / Unknown Venipuncture / Unknown 08/11/2020 1:43 PM EST 08/11/2020 1:46 PM EST Narrative [facility] - 08/11/2020 10:46 PM EST REFERENCE RANGE: Normal: 4.0-5.6% Pre-diabetes: 5.7-6.4% Provisional diagnosis of diabetes: >6.4% Hgb F>10% and anything which shortens red cell survival, such as hemolytic anemia, or unstable hemoglobin variants such as HbSS, HbSC, or HbCC, will lower the HbA1c value associated with a given level of glycemic control. us Helder Yung MD CHEMISTRY ORDERABLES Final Res ult [facility] [address] [facility] , [place] [id number] * XR CHEST PA AND LATERAL (10/28/2019 7:24 AM EDT) Only the most recent of2 resultswithin the time period is included. Anatomical Region Laterality Modality Chest Radio Fluoroscop y 10/28/2019 7:24 AM EDT Impressions 10/28/2019 7:29 AM EDT Uncomplicated postoperative chest. Suggestion of small bilateral pleural effusions. Narrative 10/28/2019 7:29 AM EDT PA AND LATERAL CHEST X-RAY, 10/28/2019 7:24 AM CLINICAL HISTORY: -s/p cabg COMPARISON: Multiple priors, most recent 10/26/2019. Chronic elevation right hemidiaphragm with patchy atelectasis at the right lung base and tiny right pleural effusion. Questionable small left pleural effusion is additional patchy atelectasis in the left lung base. Lung apices are clear. Cardiomegaly is stable. Transvenous pacemaker, unchanged. Prior CABG as well as valve surgery. Procedure Note Louis José MD - 10/28/2019 PA AND LATERAL CHEST X-RAY, 10/28/2019 7:24 AM CLINICAL HISTORY: -s/p cabg COMPARISON: Multiple priors, most recent 10/26/2019. Chronic elevation right hemidiaphragm with patchy atelectasis at the rightlung base and tiny right pleural effusion. Questionable small left pleuraleffusion is additional patchy atelectasis in the left lung base. Lung apices areclear. Cardiomegaly is stable. Transvenous pacemaker, unchanged. Prior CABG aswell as valve surgery. IMPRESSION: Uncomplicated postoperative chest. Suggestion of small bilateral pleural effusions. Alexandre Artis DO IMG DIAGNOSTIC IMAGING O RDERABLES Final Result * (ABNORMAL) URINALYSIS (10/23/2019 8:36 AM EDT) Only the most recent of3 resultswithin the time period is included. UA Color Sharifa 10/23/2019 9:01 AM EDT [facility] Appear Turbid(A) Clear 10/23/2019 9:01 AM EDT [facility] [employer] UA Glucose Negative Negative mg/dL 10/23/2019 9:01 AM EDT [facility] UA Ketones Trace (5 mg/dL)(A) Negative mg/dL 10/23/2019 9:01 AM EDT [facility] UA Blood Large(A) Negative 10/23/2019 9:01 AM EDT [facility] UA pH 6.0 5.0 - 8.0 pH 10/23/2019 9:01 AM EDT [facility] UA Protein 100(A) Negative mg/dL 10/23/2019 9:01 AM EDT [facility] UA Urobilinogen 2.0(A) <=1 mg/dL 0 9:01 AM EDT [facility] Bili Negative Negative 10/23/2019 9:01 AM EDT [facility]A Nitrite Negative Negative 10/23/2019 9:01 AM EDT [facility] Leuk Est Negative Negative 10/23/2019 9:01 AM EDT [facility] Spec Grav 1.025 1.001 - 1.035 no units 10/23/2019 9:01 AM EDT [facility] Comment:Reference range elvin d for random specimens only. UA WBC 3 0 - 4 /HPF 10/23/2019 9:01 AM EDT [facility]A RBC >182(H) 0 - 3 /HPF 10/23/2019 9:01 AM EDT [facility] UA Squam Epi 1+ /LPF 10/23/2019 9:01 AM EDT [facility]A Mucus Trace /LPF 10/23/2019 9:01 AM EDT [facility]A Amorph Trace /LPF 10/23/2019 9:01 AM EDT [facility] UA Bacteria 3+(A) Negative /HPF 10/23/2019 9:01 AM EDT [facility] UA Gran Cast 3(H) <=0 /LPF 10/23/2019 9:01 AM EDT [facility] UA Trans Epi <1(H) <=0 /HPF 10/23/2019 9:01 AM EDT [facility] Urine URINE SPECIMEN OBTAINED VIA INDWELLING URINARY CATHETER / Unknown 10/23/2019 8:36 AM EDT 10/23/2019 8:44 AM EDT Helder Ariza MD URINE ORDERABLES Final Result Performing Organization Address City/[facility]/ZIP Co de Phone Number [facility] [address] [facility] , [place] [address] * POTASSIUM WHOLE BLOOD (10/22/2019 11:57 PM EDT) Only the most recent of16 resultswithin the time period is included. Pathologist [facility] [place] K-WB 3.9 3.5 - 5.0 mEq/L 10/23/2019 12:10 AM EDT [employer] Blood BLOOD SAMPLE TAKEN FROM CENTRAL LINE / Unknown Venipuncture / Unknown 10/22/2019 11:57 PM EDT 10/23/2019 12:08 AM EDT Helder Ariza MD CHEMISTRY ORDERABLES Final Res ult Performing Organization Address [facility] Co de Phone Number [facility] [address] [facility] [facility] , [place] [phone] * (ABNORMAL) POC OPEN HEART PROFILE (10/21/2019 1:36 PM EDT) Only the most recent of20 resultswithin the time period is included. Pathologist [facility] pH 7.37 7.37 - 7.44 pH 10/21/2019 1:38 PM EDT [facility] pCO2 45 32 - 45 mmHg 10/21/2019 1:38 PM EDT [facility] pO2 78(L) 80 - 100 mmHg 10/21/2019 1:38 PM EDT [facility] HCO3 25.0 20.0 - 29.0 mmol/L 10/21/2019 1:38 PM EDT [facility] TCO2 27 21 - 30 mmol/L 10/21/2019 1:38 PM EDT [facility] Base Excess -0.3 -2.8 - 2.3 mmol/L 10/21/2019 1:38 PM EDT [facility] O2 Sat 94.0(L) 95.0 - 97.0 % 10/21/2019 1:38 PM EDT [facility] Sodium 138 135 - 148 mmol/L 10/21/2019 1:38 PM EDT [facility] K-WB 4.1 3.5 - 5.3 mEq/L 10/21/2019 1:38 PM EDT [facility] Calcium Ionized 1.11(L) 1.12 - 1.32 mmol/L 10/21/2019 1:38 PM EDT [facility] Chloride 103 98 - 108 mmol/L 10/21/2019 1:38 PM EDT [facility] Glucose WB 187(H) 72 - 112 mg/dL 10/21/2019 1:38 PM EDT [facility] Lactic Acid 1.9(H) 1.0 - 1.7 mmol/L 10/21/2019 1:38 PM EDT [facility] Hgb 10.5(L) 13.5 - 17.1 g/dL 10/21/2019 1:38 PM EDT [facility] Hct 31.0(L) 39.0 - 52.0 % 10/21/2019 1:38 PM EDT [facility] Blood ARTERIAL BLOOD / Unknown 10/21/2019 1:36 PM EDT 10/21/2019 1:38 PM EDT us Helder Ariza MD POINT OF CARE TEST ORDERABLES Final Result Performing Organization Address City/[facility]/ZIP Co de Phone Number [facility] [address] [place] [address] * INTERNAL CARDIOVERTER DEFIBRILLATOR (ICD) IMPLANT (10/21/2019 1:18 PM EDT) Narrative [facility] - 10/28/2019 9:16 AM EDT Successful single chamber ICD DFT testing at 15 J us Radha Cotton MD ELECTROPHYSIOLOGY ORDERA BLES Final Result [facility] * INTRAOP AIRWAY PLACEMENT (10/21/2019 12:21 PM EDT) Narrative [facility] - 10/21/2019 12:21 PM EDT Valeria Beltrán CRNA 10/21/2019 12:21 PM Intraop Airway Placement: Airway type: Non-rebreather us Garfield Wilhelm MD [place] ANESTHESIA Final Re sult Performing Organization Address City/[facility]/ZIP Co de Phone Number [facility] [address] [place] [phone] * (ABNORMAL) GLUCOSE METER POC (10/21/2019 8:06 AM EDT) Only the most recent of24 resultswithin the time period is included. [facility] Glucose Meter POC 125(H) 70 - 100 mg/dL 10/21/2019 8:06 AM EDT [facility] Sample Type Capillary 10/21/2019 8:06 AM EDT [facility] Patient Status Non-Critical Patient 10/21/2019 8:06 AM EDT [facility] Blood BLOOD SPECIMEN / Unknown 10/21/2019 8:06 AM EDT 10/21/2019 8:06 AM EDT us Helder Ariza MD POINT OF CARE TEST ORDERABLES Final Result Performing Organization Address [facility] Co de Phone Number [facility] [address] [place] [phone] * XR ABDOMEN AP (10/21/2019 8:01 AM EDT) Anatomical Region Laterality Modality Abdomen Radiographic Crystal ging 10/21/2019 8:01 AM EDT Impressions 10/21/2019 8:25 AM EDT Nonspecific bowel gas pattern demonstrating generalized mild small and large bowel gaseous distention. The findings may reflect ileus in the correct clinical setting. - Narrative 10/21/2019 8:25 AM EDT CR, ABDOMEN AP, 10/21/2019 8:01 AM CLINICAL HISTORY: -post code; abdominal pain COMPARISON: CT from 11/07/2010; referral also made to portable chest from today PROCEDURE COMMENTS: Supine AP view(s) of the abdomen per protocol. FINDINGS: There is artifact from multiple overlying lines and tubes. Line overlying the lower pelvis most likely represents a Leblanc catheter. Multiple mildly distended gas-filled loops of small bowel and colon are identified. Evaluation for free air or air-fluid levels is limited given supine positioning. No suspicious soft tissue calcifications are appreciated. Procedure Note Matthew Garcia MD - 10/21/2019 CR, ABDOMEN AP, 10/21/2019 8:01 AM CLINICAL HISTORY: -post code; abdominal pain COMPARISON: CT from 11/07/2010; referral also made to portable chest fromtoday PROCEDURE COMMENTS: Supine AP view(s) of the abdomen per protocol. FINDINGS: There is artifact from multiple overlying lines and tubes. Line overlyingthe lower pelvis most likely represents a Leblanc catheter. Multiple mildlydistended gas-filled loops of small bowel and colon are identified. Evaluation forfree air or air-fluid levels is limited given supine positioning. No suspicioussoft tissue calcifications are appreciated. IMPRESSION: Nonspecific bowel gas pattern demonstrating generalized mild small and large bowel gaseous distention. The findings may reflect ileus inthe correct clinical setting. - us Helder Ariza MD IMG DIAGNOSTIC IMAGING ORDERAB LES Final Result * (ABNORMAL) LACTIC ACID (10/21/2019 6:18 AM EDT) Only the most recent of2 resultswithin the time period is included. Pathologist [facility] [place] Lactic Acid 4.1(H) 0.5 - 1.9 mmol/L 10/21/2019 6:48 AM EDT [employer] Blood VENOUS BLOOD / Unknown Venipuncture / Unknown 10/21/2019 6:18 AM EDT 10/21/2019 6:31 AM EDT us Michael Malloy MD (Ronny) CHEMISTRY ORDER PARISH Final Result [facility] [address] [place] [address] , [address] [place] [phone] * (ABNORMAL) PARTIAL THROMBOPLASTIN TIME (10/21/2019 6:18 AM EDT) Only the most recent of2 resultswithin the time period is included. Pathologist [facility] PTT 23.5(L) 26.0 - 36.4 second(s) 10/21/2019 6:47 AM EDT [employer] Comment: Therapeutic range for unfractionated heparin: 53.0 - 94.4 seconds Therapeutic range for direct thrombin inhibitors: Argatroban is 1.5 to 3 times the aPTT baseline. Lepirudin is 1.5 to 2 times the aPTT baseline. The aPTT should not exceed 100 seconds. The dosage of Argatroban should be decreased in patients with hepatic impairment. The dosage of Lepirudin should be decreased in renal insufficiency. Blood VENOUS BLOOD / Unknown Venipuncture / Unknown 10/21/2019 6:18 AM EDT 10/21/2019 6:31 AM EDT Michael Malloy MD (Ronny) HEMATOLOGY ORDE RABLES Final Result Performing Organization Address [facility] Co de Phone Number [employer] [address] , [place] [address] * PHOSPHORUS LEVEL (10/21/2019 6:18 AM EDT) Phosphorus 4.0 2.5 - 4.5 mg/dL 10/21/2019 7:03 AM EDT [facility] Blood VENOUS BLOOD / Unknown Venipuncture / Unknown 10/21/2019 6:18 AM EDT 10/21/2019 6:31 AM EDT Michael Malloy MD (Ronny) CHEMISTRY ORDER PARISH Final Result Performing Organization Address [facility] Co de Phone Number [employer] [address] , [address] [place] [phone] * (ABNORMAL) DIFFERENTIAL (10/20/2019 4:08 AM EDT) Only the most recent of5 resultswithin the time period is included. Segs Percent 80 % 10/20/2019 5:06 AM EDT [facility] [employer] [employer] Lymph Percent 9 % 10/20/2019 5:06 AM EDT [facility] [employer] [employer] [place] Percent 11 % 10/20/2019 5:06 AM EDT [facility] [employer] Neut # 13.6(H) 1.8 - 7.7 x10(3)/mcL 10/20/2019 5:06 AM EDT [facility] [employer] [employer] Lymph # 1.5 0.6 - 4.8 x10(3)/mcL 10/20/2019 5:06 AM EDT [facility] [place] # 1.9(H) 0.0 - 1.3 x10(3)/mcL 10/20/2019 5:06 AM EDT [facility] Blood VENOUS BLOOD / Unknown Venipuncture / Unknown 10/20/2019 4:08 AM EDT 10/20/2019 4:15 AM EDT Helder Ariza MD HEMATOLOGY ORDERABLES Final Re sult Performing Organization Address City/[facility] de Phone Number [facility] [employer] [address] , [place] [address] * O2 SAT - MIXED VENOUS (10/19/2019 11:54 PM EDT) Only the most recent of4 resultswithin the time period is included. O2 Sat Mixed Venous 48.3 40.0 - 70.0 % 10/20/2019 12:07 AM EDT [facility] Blood VENOUS BLOOD / Unknown Venipuncture / Unknown 10/19/2019 11:54 PM EDT 10/20/2019 12:03 AM EDT us Helder Ariza MD CHEMISTRY ORDERABLES Final Res ult Performing Organization Address [facility] de Phone Number [facility] [employer] [address] , [place] [address] * (ABNORMAL) POC OPEN HEART WHOLE BLOOD GLUCOSE (10/19/2019 12:48 PM EDT) Only the most recent of2 resultswithin the time period is included. Glucose WB 132(H) 72 - 112 mg/dL 10/19/2019 12:50 PM EDT [facility] Blood BLOOD SPECIMEN / Unknown 10/19/2019 12:48 PM EDT 10/19/2019 12:50 PM EDT us Helder Ariza MD POINT OF CARE TEST ORDERABLES Final Result Performing Organization Address City/[facility] de Phone Number [facility] [address] [place] [address] * CORTISOL (10/19/2019 5:18 AM EDT) Cortisol 8.56 mcg/dL 10/19/2019 6:2 2 AM EDT [facility] Blood ARTERIAL BLOOD / Unknown Venipuncture / Unknown 10/19/2019 5:18 AM EDT 10/19/2019 5:36 AM EDT Narrative [employer] [facility] - 10/19/2019 6:22 AM EDT AM: 4.82 - 19.5 mcg/dL This reference interval was verified on healthy individuals between the hours of 6:00 am -10:00 am. This interval may not be appropriate outside of that time range. PM: 2.47 - 11.9 mcg/dL This reference interval was verified on healthy individuals between the hours of 4:00 pm -8:00 pm. This interval may not be appropriate outside of that time range. Ingestion of daljit doses of biotin (>5 mg/day) taken within 8 hours of drawing blood sample can interfere with this immunoassay test. Dejon Osorio [employer] CHEMISTRY ORDERABL ES Final Result [employer] [address], [place] [address] * PLATELETS REQUEST (10/18/2019 2:35 AM EDT) Product Code [id number] [facility] Unit Number [id number] [facility] Dispense Status TRANSFUSED [facility] Blood Expiration Date [facility] ISBT 128 Type [address] [facility] BA CODING SYSTEM [id number] [facility] Blood Type (Unit) A POS [facility] Product Code [id number] [facility] Unit Number [id number] [facility] Dispense Status TRANSFUSED [facility] Blood Expiration Date [facility] ISBT 128 Type [address] [facility] BA CODING SYSTEM [id number] [facility] Blood Type (Unit) A POS [facility] Blood 10/18/2019 2:35 AM EDT Helder Ariza MD BLOOD PRODUCT ORDERS Final Res ult Performing Organization Address City/[facility] Co de Phone Number [facility] [place] [address] * FFP/PLASMA REQUEST (10/18/2019 2:35 AM EDT) Only the most recent of2 resultswithin the time period is included. Product Code [id number] [facility] Unit Number [id number] [facility] Dispense Status TRANSFUSED [facility] BLOOD [facility] Blood Expiration Date [facility] ISBT 128 Type [address] [facility] BA CODING SYSTEM [id number] [facility] Blood Type (Unit) A POS [facility] Product Code [id number] [facility] Unit Number [id number] [facility] Dispense Status TRANSFUSED [facility] Blood Expiration Date [facility] ISBT 128 Type [address] [facility] BA CODING SYSTEM [id number] [facility] Blood Type (Unit) A POS [facility] Blood 10/18/2019 2:35 AM EDT us Helder Ariza MD BLOOD PRODUCT ORDERS Final Res ult Performing Organization Address City/[facility]/ZIP Co de Phone Number [facility] [place] [place] [address] * CRYOPRECIPITATE REQUEST (10/18/2019 2:35 AM EDT) Only the most recent of3 resultswithin the time period is included. Product Code [id number] [facility] BANK Unit Number [id number] [facility] BLOOD BANK Dispense Status TRANSFUSED [facility] BLOOD BANK Blood Expiration Date [facility] BLOOD BANK ISBT 128 Type [address] [facility] BLOOD BANK BA CODING SYSTEM [id number] [facility] BLOOD BANK Blood Type (Unit) A POS [facility] BLOOD BANK Product Code [id number] [facility] BLOOD BANK Unit Number [id number] [facility] BLOOD BANK Dispense Status TRANSFUSED [facility] BLOOD BANK Blood Expiration Date [facility] BLOOD BANK ISBT 128 Type [address] [facility] BLOOD BANK BA CODING SYSTEM [id number] [facility] BLOOD BANK Blood Type (Unit) A POS [facility] BLOOD BANK 10/18/2019 2:35 AM EDT us Helder Ariza MD BLOOD PRODUCT ORDERS Final Res ult Performing Organization Address [facility] Co de Phone Number [facility] BLOOD [place] [phone] * (ABNORMAL) HEMOGLOBIN AND HEMATOCRIT (10/17/2019 8:04 PM EDT) Hgb 10.1(L) 13.7 - 17.5 g/dL 10/17/2019 8:24 PM EDT [facility]REF[facility]ED [facility] Hct 29.1(L) 40.0 - 51.0 % 10/17/2019 8:24 PM EDT [facility] Blood ARTERIAL BLOOD / Unknown Venipuncture / Unknown 10/17/2019 8:04 PM EDT 10/17/2019 8:19 PM EDT Helder Ariza MD HEMATOLOGY ORDERABLES Final Re sult Performing Organization Address City/[facility]/ZIP Co de Phone Number [employer] [address] [place] [address], [place] [address] * PLATELET COUNT (10/17/2019 8:04 PM EDT) Only the most recent of2 resultswithin the time period is included. Platelet 182 155 - 369 x10(3)/mcL 10/17/2019 8:24 PM EDT [facility] MPV 10.3 8.8 - 12.5 fL 10/17/2019 8:24 PM EDT [facility] [employer], [facility] Blood ARTERIAL BLOOD / Unknown Venipuncture / Unknown 10/17/2019 8:04 PM EDT 10/17/2019 8:19 PM EDT Helder Ariza MD HEMATOLOGY ORDERABLES Final Re sult Performing Organization Address [facility] de Phone Number [address] , [place] [address] * (ABNORMAL) FIBRINOGEN (10/17/2019 5:07 PM EDT) [facility] Fibrinogen 595(H) 196 - 447 mg/dL 10/17/2019 5:24 PM EDT [facility] Blood VENOUS BLOOD / Unknown Venipuncture / Unknown 10/17/2019 5:07 PM EDT 10/17/2019 5:10 PM EDT Helder Ariza MD HEMATOLOGY ORDERABLES Final Re sult Performing Organization Address [facility] Phone Number [address] , [place] [address] * STAPHYLOCOCCUS AUREUS SCREEN (10/17/2019 4:15 PM EDT) [facility] Staph aureus PCR Not Detected Not Detected 10/17/2019 7:04 PM EDT [facility] [employer], [facility] MRSA PCR Not Detected Not Detected 10/17/2019 7:04 PM EDT [facility] [employer], [facility] Swab BOTH ANTERIOR NARES / Unknown 10/17/2019 4:15 PM EDT 10/17/2019 5:14 PM EDT Narrative [facility] [employer], [facility] - 10/17/2019 7:04 PM EDT Staphylococcus aureus target DNA sequence is not detected. This qualitative assay is intended for the detection of Staphylococcus aureus proprietary sequences for the staphylococcal protein A (spa) gene, the gene for methicillin resistance (mecA), and the staphylococcal cassette chromosome mec (SCCmec) inserted into the SA chromosomal attB site. This assay utilizes real time PCR on the Stripe GeneXpert Infinity, and its performance has been verified by the [facility]. A negative result does not rule out the presence of the Staphylococcus aureus or Methicillin resistant Staphylococcus aureus in concentrations below the limit of detection for the assay. This assay is FDA cleared to test on nares swabs collected on patients >21 years of age. Testing on patients < 21 years of age and on umbilicus sources is not FDA approved by this methodology, but has been developed and validated by the [facility] laboratory. Detailed methodology is available upon request. Helder Ariza MD MICROBIOLOGY - GENERAL ORDERAB LES Final Result [facility] [address] [place] [address], [address] [place] [id number] * TRANSFUSE CRYOPRECIPITATE (10/17/2019 3:59 PM EDT) Only the most recent of4 resultswithin the time period is included. Helder Ariza MD NURSING TREATMENT ORDERABLES - BLOOD ADMIN Final Result * TRANSFUSE PLATELETS (10/17/2019 3:58 PM EDT) Only the most recent of2 resultswithin the time period is included. Helder Ariza MD NURSING TREATMENT ORDERABLES - BLOOD ADMIN Final Result * TRANSFUSE FRESH FROZEN PLASMA (10/17/2019 3:49 PM EDT) Only the most recent of4 resultswithin the time period is included. Helder Ariza MD NURSING TREATMENT ORDERABLES - BLOOD ADMIN Final Result * ACTIVATED CLOTTING TIME + POC (10/17/2019 3:41 PM EDT) Only the most recent of10 resultswithin the time period is included. [facility] Signature ACT+ 132 89 - 169 second(s) 10/17/2019 3:58 PM EDT [facility] Blood BLOOD SPECIMEN / Unknown 10/17/2019 3:41 PM EDT 10/17/2019 3:58 PM EDT Christ Soto MD POINT OF CARE TEST ORDERABLES Fi nal Result Performing Organization Address 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 10/21/2019 10:36 AM EDT [facility] at 1036 EDT GROSS DESCRIPTION Received in formalin, in a container labeled with the patient's name as Odilia Ceron, hospital number, and mitral valve papillary muscle are two govea-white to govea-purple valvular tissue fragments, 2.0 x 0.6 x 0.3 cm and 2.8 x 1.2 x 0.8 cm. The larger fragment is sectioned to show govea to govea-purple and hemorrhagic cut surfaces. No distinct calcifications are identified. [employer] sections are submitted in A1. /MK 10/21/2019 10:36 AM EDT [facility] MICROSCOPIC DESCRIPTION Microscopic examination is performed and the findings corroborate the diagnosis. 10/21/2019 10:36 AM EDT [facility] EMBEDDED IMAGES 10/21/2019 10:36 AM EDT [facility] Tissue MITRAL VALVE STRUCTURE / Unknown 10/17/2019 2:37 PM EDT 10/18/2019 10:14 AM EDT us Helder Ariza MD PATHOLOGY ORDERABLES Final Res ult [facility] [address] [place] [address] [facility] [address] [place], [place] [id number] * DOMINICK (10/17/2019 12:01 PM EDT) Narrative [facility] - 10/17/2019 12:01 PM EDT Maggie Watt MD 10/17/2019 12:12 PM DOMINICK by Anesthesia Procedure Date/Time: 10/17/2019 12:02 PM Location: OR Physician Requesting Echo: Helder Ariza MD Examiner: Maggie Watt MD Indication: Shock Intubated: YES Sedated: YES Insertion: Easy Probe type: Multiplane Modalities: CFM, CWD, PWD, 2D and 3D Echocardiographic and Doppler Measurements Aorta Size Diam (cm) Dissection Plaque thick (mm) Plaque mobile Ascending AO AO Arch Descending AR Valves Annulus Stenosis Area/ Gradient Regurg Leaflet Morphology Leaflet Motion Aortic Valve normal no 0 nl nl Mitral Valve Prolapsed posterior leaflet. Ruptured chordae. 4+ flail Tricuspid normal no 1+ nl nl Atria Size SEC (smoke) Thrombus Tumor Device Right Atrium dilated No No No Left Atrium dilated No No No Ventricles Cavity Size Cavity Dimension Hypertrophy Thrombus Global FXN EF RV dilated No No severely decreased LV dilated No No severely decreased 20% Pericardium: Moderate Effusion Post Intervention Follow-up Study Complications: None us Maggie Watt MD ANESTHESIA ORDERABLES Final Resu lt Performing Organization Address [facility] Co de Phone Number [facility] [address] [place] [address] * ANE SWAN JOSÉ MIGUEL PLACEMENT (10/17/2019 11:59 AM EDT) Narrative [facility] - 10/17/2019 11:59 AM EDT Maggie Watt MD 10/17/2019 12:12 PM PA Catheter Placement Procedure Date/Time: 10/17/2019 10:43 AM Anesthesiologist: Maggie Watt MD Other staff: Shania Castañeda RNLocation: OR Patient sedated: Yes Immediate pre anesthetic assessment completed:Yes PA catheter type: Oximetric Catheter size: 7.5 Fr Laterality: Right Site: Internal jugular Placement verification: Pressure tracing changes PA catheter depth: 58 Events: Patient tolerated welll with no complications us Maggie Watt MD ANESTHESIA ORDERABLES Final Resu lt Performing Organization Address [facility] Co de Phone Number [facility] [address] [place] [address] * ANE INTRODUCER PLACEMENT (10/17/2019 11:55 AM EDT) Narrative [facility] - 10/17/2019 11:55 AM EDT Maggie Watt MD 10/17/2019 12:12 PM Central Line / Introducer Placement Procedure Date/Time: 10/17/2019 10:39 AM Patient Location: OR Indication: Central Venous Access Ultrasound-Guided: Ultrasound guided Anesthesiologist: Maggie Watt MD Other Staff: Shania Castañeda RN Placed By: Anesthesiologist Sterility prep: Provider hand hygiene prior to procedure, Provider used sterile gloves, gown, hat, mask and Sterile full body drape was used Prep: Chloraprep Patient position: Trendelenburg Local Anesthetic: Injectable Laterality: Right Site: Internal jugular Catheter size: 8.5 Catheter Length: 10 cm Catheter Type: Introducer Seldinger Technique: Yes Intravenous Verification: Ultrasound Insertion attempts: 1 Post Insertion: All ports aspirated, Guidewire was removed intact, Line was sutured in place, All ports flushed easily, Biopatch was applied and Sterile dressing applied Events: Patient tolerated well with no complications us Maggie Watt MD ANESTHESIA ORDERABLES Final Resu lt Performing Organization Address [facility] de Phone Number [facility] [address] [place] [address] * INTRAOP AIRWAY PLACEMENT (10/17/2019 11:50 AM EDT) Narrative [facility] - 10/17/2019 11:50 AM EDT Maggie Watt MD 10/17/2019 12:12 PM Intraop Airway Placement: Date/Time: 10/17/2019 11:00 AM Induction type: Rapid sequence Mask size: Standard adult Pre-Oxygenation: Reverse trendelenberg and BMI guided pre-O2 Mask ventilation: Not attempted Technique: Direct laryngoscope Laryngoscope blade: Smart Blade size: 4 Grade view: I Airway type: ETT- cuffed Topical Anesthetic/Lubricant: Lubricant jelly Airway location: Oral Device size: 8mm Secured at: 24 cm Secured by: Tape Measured from: Lips Placement verified: Auscultation and End tidal CO2 Condition: Atraumatic Insertion attempts: 1 Title: Anesthesiologist Maggie Watt MD [place] ANESTHESIA Final Result Performing Organization Address [facility]/ZIP Co de Phone Number [facility] [address] [place] [address] * BB HISTORY CHECK (10/17/2019 10:15 AM EDT) Pathologist [facility] BB HISTORY CHECK (1) No Previous History 10/17/2019 10:32 AM EDT [facility] BLOOD BANK Blood ARTERIAL BLOOD / Unknown 10/17/2019 10:15 AM EDT Anders New MD BLOOD BANK ORDERABLES Final Result Performing Organization Address [facility] Co de Phone Number [facility] BLOOD BANK [address] [place] [address] * ABORH (10/17/2019 10:15 AM EDT) Pathologist [facility] ABORH Int A POS 10/17/2019 10:57 AM EDT [facility] BLOOD [facility] Blood ARTERIAL BLOOD / Unknown 10/17/2019 10:15 AM EDT Anders New MD BLOOD BANK ORDERABLES Final Result Performing Organization Address [facility] de Phone Number [facility] BLOOD [facility] [address] [place] [address] * RED BLOOD CELLS REQUEST (10/17/2019 10:15 AM EDT) Only the most recent of2 resultswithin the time period is included. Product Code [id number] [facility] BLOOD BANK Unit Number [id number] [facility] BLOOD [facility] Crossmatch Interp Compatible [facility] BLOOD BANK Dispense Status RETURNED [facility] BLOOD [facility] Blood Expiration Date [facility] BLOOD BANK ISBT 128 Type [address] [facility] BLOOD [facility] BA CODING SYSTEM [id number] [facility] BLOOD [facility] Blood Type (Unit) A POS [facility] BLOOD BANK Product Code [id number] [facility] BLOOD BANK Unit Number [id number] [facility] BLOOD BANK Crossmatch Interp Compatible [facility] BLOOD BANK Dispense Status RETURNED [facility] BLOOD [facility] Blood Expiration Date [id number] [facility] BLOOD BANK ISBT 128 Type [address] [facility] BLOOD BANK BA CODING SYSTEM [id number] [facility] BLOOD BANK Blood Type (Unit) A POS [facility] BLOOD BANK Blood 10/17/2019 10:1 5 AM EDT 10/17/2019 10:19 AM EDT us Helder Ariza MD BLOOD PRODUCT ORDERS Final Res ult Performing Organization Address City/[facility]/ZIP Co de Phone Number [facility] BLOOD BANK [address] [place] [address] * ANTIBODY SCREEN IGG (10/17/2019 10:15 AM EDT) ABSC IgG Int Negative 10/17/2019 11:07 AM EDT [facility] BLOOD [facility] Blood ARTERIAL BLOOD / Unknown 10/17/2019 10:15 AM EDT us Anders New MD BLOOD BANK ORDERABLES Final Result Performing Organization Address [facility] de Phone Number [facility] [place] [place] [address] * (ABNORMAL) ACTIVATED CLOTTING TIME LR POC (10/17/2019 10:10 AM EDT) Only the most recent of4 resultswithin the time period is included. ACT-LR 354(H) 89 - 169 second(s) 10/17/2019 10:20 AM EDT [facility] Blood BLOOD SPECIMEN / Unknown 10/17/2019 10:10 AM EDT 10/17/2019 10:20 AM EDT us Christ Soto MD POINT OF CARE TEST ORDERABLES Fi nal Result Performing Organization Address [facility] Co de Phone Number [facility] [address] [place] [address] * HEPARIN ANTI-XA, UNF (10/15/2019 9:39 AM EDT) Only the most recent of8 resultswithin the time period is included. Heparin Level UNF 0.36 0.30 - 0.70 IU/mL 10/15/2019 9:55 AM EDT [facility] Comment:The therapeutic rang e for heparinized patients monitored by the Heparin Lvl UF is 0.30-0.70 IU/mL. Blood VENOUS BLOOD / Unknown Venipuncture / Unknown 10/15/2019 9:39 AM EDT 10/15/2019 9:43 AM EDT Delicia Ramesh MD HEMATOLOGY ORDERABLES Coco l Result Performing Organization Address [facility] de Phone Number [address] [address] * EXTRA LAVENDER (10/14/2019 6:09 PM EDT) Blood VENOUS BLOOD / Unknown Venipuncture / Unknown 10/14/2019 6:09 PM EDT 10/14/2019 6:27 PM EDT Helene Covington MD HEMATOLOGY ORDERABLES Final Resu lt Performing Organization Address [facility] de Phone Number [address] [address] * EXTRA TAFOYA URINE CX (10/14/2019 5:47 AM EDT) Urine URINE SPECIMEN COLLECTION, CLEAN CATCH / Unknown 10/14/2019 5:47 AM EDT 10/14/2019 6:02 AM EDT Louis Cassidy MD MICROBIOLOGY - GENERAL ORDERABL ES Final Result Performing Organization Address [facility] de Phone Number [address] [address] * REPEAT LACTIC ACID (10/12/2019 4:34 PM EDT) Lactic Acid 1.6 0.5 - 1.9 mmol/L 10/12/2019 5:02 PM EDT [facility] Blood VENOUS BLOOD / Unknown Venipuncture / Unknown 10/12/2019 4:34 PM EDT 10/12/2019 4:47 PM EDT us Louis Cassidy MD CHEMISTRY ORDERABLES Final Resu lt [facility] [address] [facility] [place] [address] * CT CHEST W CONTRAST (10/12/2019 4:33 PM EDT) Anatomical Region Laterality Modality Chest Computed Tomogra phy 10/12/2019 4:33 PM EDT Impressions 10/12/2019 4:[address] features to suggest pneumonia. (Note: CT may be negative in the early stages of COVID-19.) Right hemidiaphragm elevation and resulting right basal atelectasis likely explains chest x-ray findings. - Narrative 10/12/2019 4:[address] CHEST WITH CONTRAST, 10/12/2019 4:33 PM CLINICAL HISTORY: -CP, SOB, abnormal x-ray COMPARISON: Chest x-ray from today PROCEDURE COMMENTS: Multi detector volumetric CT scanning of the chest. Multiplanar reconstructions per protocol. 75 mL Isovue 370 given. Automated exposure control for dose reduction was used. CTDIvol: 13.7 mGy. DLP: 475 mGy-cm. FINDINGS: There is elevation of the right hemidiaphragm which results in some atelectasis of the right lower lung which likely explains the chest x-ray finding. There are no groundglass opacities or other characteristic findings of viral pneumonia. No pleural or pericardial fluid. No adenopathy. Tracheobronchial tree is patent. Note made of fatty liver. Procedure Note Chilo Evans MD - 10/12/2019 CT CHEST WITH CONTRAST, 10/12/2019 4:33 PM CLINICAL HISTORY: -CP, SOB, abnormal x-ray COMPARISON: Chest x-ray from today PROCEDURE COMMENTS: Multi detector volumetric CT scanning of the chest. Multiplanar reconstructions per protocol. 75 mL Isovue 370 given.Automated exposure control for dose reduction was used. CTDIvol: 13.7 mGy. DLP:475 mGy-cm. FINDINGS: There is elevation of the right hemidiaphragm which results insome atelectasis of the right lower lung which likely explains the chestx-ray finding. There are no groundglass opacities or other characteristicfindings of viral pneumonia. No pleural or pericardial fluid. No adenopathy. Tracheobronchial tree is patent. Note made of fatty liver. IMPRESSION: No CT features to suggest pneumonia. (Note: CT may be negative in the early stages of COVID-19.) Right hemidiaphragm elevation and resultingright basal atelectasis likely explains chest x-ray findings. - Louis Cassidy MD IMG CT ORDERABLES Final Result * CORONAVIRUS 2019 (COVID-19) - REF LAB (10/12/2019 3:22 PM EDT) [facility] CORONAVIRUS [id number] Negative Not Detected 10/14/2019 10:01 PM EDT EXTERNAL LAB Swab NASOPHARYNGEAL STRUCTURE / Unknown 10/12/2019 3:22 PM EDT 10/12/2019 3:31 PM EDT Narrative EXTERNAL LAB - 10/14/2019 10:01 PM EDT Test performed by reference lab: [place]. See scanned report. Caution should be exercised when interpreting negative results. A negative result does not rule out COVID-19 and cannot be used as sole basis for treatment or patient management decisions. If COVID-19 is still suspected following a negative result, re-testing should be considered. Louis Cassidy MD LAB SEND OUT ORDERABLES Final R esult EXTERNAL LAB See Scanned Report * INFLUENZA A/B ANTIGENS (10/12/2019 3:22 PM EDT) [facility] Influ A Ag Not Detected Not Detected 10/12/2019 3:52 PM EDT [facility] Influ B Ag Not Detected Not Detected 10/12/2019 3:52 PM EDT [facility] Swab NASOPHARYNGEAL STRUCTURE / Unknown 10/12/2019 3:22 PM EDT 10/12/2019 3:39 PM EDT Narrative [facility] - 10/12/2019 3:52 PM EDT Negative or Invalid results in patients with high clinical suspicion should be verified with RT-PCR, available as Respiratory Viral Mini Panel ([id number]) in [facility]. The WHO recommends molecular testing (Respiratory Viral DNA Test) during periods of low influenza activity instead of rapid tests. Should rapid tests be used, then both positive and negative test results should be confirmed by a molecular method. The WHO also recommends confirmatory testing by a molecular method (Respiratory Viral DNA Test) for all negative rapid test results during seasonal occurrence of influenza. us Louis Cassidy MD MICROBIOLOGY - GENERAL ORDERABL ES Final Result [facility] [address] [facility] [address] * PROCALCITONIN (10/12/2019 2:56 PM EDT) Procalcitonin 0.06 <=0.49 ng/mL 10/12/2019 3:38 PM EDT [facility] Blood VENOUS BLOOD / Unknown Venipuncture / Unknown 10/12/2019 2:56 PM EDT 10/12/2019 3:04 PM EDT Narrative [facility] - 10/12/2019 3:38 PM EDT Procalcitonin <0.50 ng/mL: Procalcitonin levels below 0.50 ng/mL on the first day of ICU admission represent a low risk for progression to severe sepsis and/or septic shock Procalcitonin >=0.50 ng/mL and <=2.00 ng/mL: If the procalcitonin measurement is performed shortly after the systemic infection process has started (usually less than 6 hours), this value may still be low. As various non-infectious conditions are known to induce procalcitonin as well, procalcitonin levels between 0.50 ng/mL and 2.00 ng/mL should be reviewed carefully to take into account the specific clinical background and condition(s) of the patient. Procalcitonin >2.00 ng/mL: Procalcitonin levels above 2.00 ng/mL on the first day of ICU admission represent a high risk for progression to severe sepsis and/or septic shock. Louis Cassidy MD CHEMISTRY ORDERABLES Final Resu lt Performing Organization Address City/[facility]/ZIP Co de Phone Number [facility] [address] [place] [address] * BLOOD CULTURE (NO STAIN) (10/12/2019 2:56 PM EDT) Only the most recent of2 resultswithin the time period is included. Culture Result No Growth at 120 hours. BLOOD CULTURE (NO STAIN) 10/18/2019 6:01 AM EDT [employer] Blood VENOUS BLOOD / Unknown Venipuncture / Unknown 10/12/2019 2:56 PM EDT 10/12/2019 3:04 PM EDT Louis Cassidy MD MICROBIOLOGY - GENERAL ORDERABL ES Final Result Performing Organization Address City/[facility] Co de Phone Number [employer] [address] [facility], [place] [address] * (ABNORMAL) COLOGUARD (03/27/2019 10:00 AM EDT) COLOGUARD CLINICAL REPORT Positive (A) Not Applicable [facility] Comment: It is recommended that a positive Cologuard screen be clinically correlated and followed-up with a structural examination of the colon such as diagnostic colonoscopy. Colonoscopies performed for a positive Cologuard may find as the most clinically significant lesion: colorectal cancer [4.0%], advanced adenoma (including sessile serrated polyps greater than or equal to 1cm diameter) [20%] or non- advanced adenoma [31%]; or no colorectal neoplasia [45%]. These estimates are derived from a prospective cross-sectional screening study of 10,000 individuals at average risk for colorectal cancer who were screened with both Cologuard and colonoscopy. (Table 3, Maren Story. asad al, N Engl J Med 2014;370(14):9832-4100.) Test Type: Composite algorithmic analysis of stool DNA-biomarkers with hemoglobin immunoassay. Quantitative values of individual biomarkers are not reportable and are not associated with individual biomarker result reference ranges. Precautions and Limitations: Cologuard is intended for colorectal cancer screening of adults of either sex, 50 years or older, who are at typical average-risk for colorectal cancer. A negative Cologuard test result does not guarantee the absence of colorectal cancer or advanced adenoma (pre-cancer). Patients with a negative Cologuard test result should be advised to continue participating in a colorectal cancer screening program. Cologuard may produce a positive result, even though a colonoscopy may not find colorectal cancer or precancerous polyps. The performance of Cologuard has been established in a cross sectional study (i.e., single point in time). Performance has not been evaluated in adults who have been previously tested with Cologuard or in patients less than 50 years of age. Cologuard has been approved for use by the [place] FDA. Cologuard performance data in a 10,000 patient pivotal study using colonoscopy as the reference method can be accessed at the following location: www.[employer]/results. Additional description of the Cologuard test process, warnings and precautions can be found at www.cologuardtest.com. Rx Only. Stool specimen (specimen) 03/27/2019 10:00 AM EDT 03/28/2019 7:12 PM EDT Temi Isabel APRN [employer] - ORDERABLE S Final Result Data [facility] [place] [address], [facility] [place] [address] * PROSTATE SPECIFIC ANTIGEN (SCREENING) (05/21/2018 8:10 AM EST) Total Psa 2.82 <=4.00 ng/mL 05/21/2018 4:20 PM EST [facility] Blood Venipuncture / Unknown 05/21/2018 8:10 AM EST 05/21/2018 8:10 AM EST Narrative [facility] - 05/21/2018 4:20 PM EST Prostate cancer screening with the PSA test is controversial and varying recommendation exists among several Urologic, Governmental, and Oncologic organizations. The decision to test the prostate for cancer should be based on a discussion between the patient and the physician. Given that the PSA value varies with age, prostate size, prostate activity, and between blood tests, consideration should be given to prostatic hypertrophy, prostate inflammation, perineal activity (including bicycle riding and digital rectal exam), and prior PSA levels. Lastly, higher risk prostate cancers can occur in certain ethnic groups and low PSA states, consideration of history and physical findings should guide screening decision making. Ingestion of daljit doses of biotin (>5 mg/day) taken within 8 hours of drawing blood sample can interfere with this immunoassay test. Temi Isabel [employer]ER CHEMISTRY ORDERABLES Coco l Result Performing Organization Address [facility] Co de Phone Number [employer] [address] [place] [address] , [place] [address] * THYROID STIMULATING HORMONE (05/21/2018 8:10 AM EST) Only the most recent of2 resultswithin the time period is included. TSH 2.300 0.270 - 4.200 mcIU/mL 05/21/2018 4:49 PM EST [employer] Blood Venipuncture / Unknown 05/21/2018 8:10 AM EST 05/21/2018 8:10 AM EST [employer] - 05/21/2018 4:49 PM EST Ingestion of daljit doses of biotin (>5 mg/day) taken within 8 hours of drawing blood sample can interfere with this immunoassay test. Temiyaneli Isabel SK[employer]ARDER CHEMISTRY ORDERABLES Coco l Result Performing Organization Address [facility] Co de Phone Number [employer] [address] [place] [address] , [place] [address] * TESTOSTERONE LEVEL TOTAL (05/21/2018 8:10 AM EST) Only the most recent of2 resultswithin the time period is included. Testosterone Lvl 630 300 - 720 ng/dL 05/21/2018 4:49 PM EST [employer] Blood VENOUS BLOOD / Unknown Venipuncture / Unknown 05/21/2018 8:10 AM EST 05/21/2018 8:10 AM EST Narrative [facility] - 05/21/2018 4:49 PM EST Values less than 12 ng/dL are not reliable as the intermediate precision coefficient of variation is > 20%. Ingestion of daljit doses of biotin (>5 mg/day) taken within 8 hours of drawing blood sample can interfere with this immunoassay test. Temi Isabel SK[employer] YARDER CHEMISTRY ORDERABLES Coco l Result [facility] [address] , [place] [id number] * XR TIBIA FIBULA LEFT AP AND LATERAL (11/17/2017 9:14 PM EDT) Anatomical Region Laterality Modality Leg Radiographic Crystal ging 11/17/2017 9:14 PM EDT Impressions 11/17/2017 9:35 PM EDT No osseous or joint abnormality in this patient with LEFT knee arthroplasty. Narrative 11/17/2017 9:35 PM EDT XR TIBIA FIBULA LEFT AP AND LATERAL, 11/17/2017 9:14 PM Clinical History: 61 years Male -LEG INJURY Procedure Comments: Orthogonal views of the tibia and fibula, 2 Views Procedure Note Yuli Hansen MD - 11/17/2017 XR TIBIA FIBULA LEFT AP AND LATERAL, 11/17/2017 9:14 PM Clinical History: 61 years Male -LEG INJURY Procedure Comments: Orthogonal views of the tibia and fibula, 2 Views IMPRESSION: No osseous or joint abnormality in this patient with LEFT knee arthroplasty. Radha Fitzpatrick MD IMG DIAGNOSTIC IMAGING OR DERABLES Final Result * XR HAND LEFT PA LATERAL AND OBLIQUE (05/11/2017 2:56 PM EDT) Anatomical Region Laterality Modality Hand Radiographic Crystal ging 05/11/2017 2:56 PM EDT Impressions 05/11/2017 3:32 PM EDT No acute bony findings left hand or fingers. Severe degenerative change in the carpus. Tiny metallic foreign bodies in the thumb and little finger. Narrative 05/11/2017 3:32 PM EDT LEFT HAND AND FINGERS THREE VIEWS, 05/11/2017 2:56 PM INDICATIONS: Trauma, pain. Three views left hand and fingers show no fracture, dislocation, or osseous abnormality. There is severe degenerative change in the carpus. Small metallic foreign bodies are seen in the thumb and little finger area Procedure Note Gayle Powers MD - 05/11/2017 LEFT HAND AND FINGERS THREE VIEWS, 05/11/2017 2:56 PM INDICATIONS: Trauma, pain. Three views left hand and fingers show no fracture, dislocation, orosseous abnormality. There is severe degenerative change in the carpus. Smallmetallic foreign bodies are seen in the thumb and little finger area IMPRESSION: No acute bony findings left hand or fingers. Severe degenerative change in the carpus. Tiny metallic foreign bodies in the thumb andlittle finger. Shannan Guevara [facility] DIAGNOSTIC IMAGING ORD ERABLES Final Result * XR WRIST LEFT PA LATERAL AND OBLIQUE (05/11/2017 2:56 PM EDT) Anatomical Region Laterality Modality Wrist Radiographic Crystal ging 05/11/2017 2:56 PM EDT Impressions 05/11/2017 3:33 PM EDT No acute bony findings. Severe degenerative change. Narrative 05/11/2017 3:33 PM EDT LEFT WRIST, 4 VIEWS, 05/11/2017 2:56 PM INDICATIONS: Trauma, pain FINDINGS: 4 views of the left wrist show no fracture, dislocation, or osseous abnormality. There is severe degenerative change in the carpus. Procedure Note Gayle Powers MD - 05/11/2017 LEFT WRIST, 4 VIEWS, 05/11/2017 2:56 PM INDICATIONS: Trauma, pain FINDINGS: 4 views of the left wrist show no fracture, dislocation, orosseous abnormality. There is severe degenerative change in the carpus. IMPRESSION: No acute bony findings. Severe degenerative change. Shannan Guevara APRN [facility] DIAGNOSTIC IMAGING ORD ERABLES Final Result * MRI CERVICAL SPINE WO CONTRAST (04/25/2017 11:07 AM EDT) Only the most recent of2 resultswithin the time period is included. Anatomical Region Laterality Modality C-spine Magnetic Resonan ce 04/25/2017 11:0 7 AM EDT Impressions 04/25/2017 4:06 PM EDT 1. ACDF C4-C7 with new 4 to 5 mm anterolisthesis of C7 with respect to T1. Associated moderate pseudo-disc bulge and moderate ligamentum flavum hypertrophy contribute to mild to moderate central canal stenosis. Mild diffuse disc bulge at C3-C4. 2. Significant left C5-C6 neural foraminal stenosis. Moderate to advanced bilateral C3-C4, right C6-C7 and right C7-T1 neural foraminal stenosis. At least moderate stenosis right C4-C5, left C6-C7 and left C7-T1. Narrative 04/25/2017 4:06 PM EDT MRI CERVICAL SPINE WITHOUT CONTRAST: 04/25/2017 COMPARISON: 01/13/2014. INDICATION: 61-year-old with history of cervical stenosis and spine surgery. Right arm and hand numbness and tingling since November 26, 2016. M48.02-Spinal stenosis, cervical [id number] T84.216A-Breakdown (mechanical) of internal fixation device of vertebrae, initial [id number]. TECHNICAL FACTORS: Sagittal and axial T1 and T2 weighted sequences obtained on 3.0 Winifred magnet. Sagittal STIR sequence also obtained. Sagittal STIR sequence performed twice. FINDINGS: There is anterior C4-C7 fusion with hardware similar to prior exam. Spine is straight. There is 2 mm stable anterolisthesis of L2 with respect to L3. Posterior margin of inferior posterior C7 is partially obscured from postsurgical change and susceptibility artifact. There does appear to be at least 4 mm anterolisthesis C7 with respect to T1 posteriorly and potentially up to 5 mm subluxation anteriorly. This subluxation and interval poorly defined margins of superior C7-T1 disc space are new changes from 2013. Also new is greater ligamentum flavum hypertrophy at C7-T1. Mild inferior C3 sub endplate degenerative marrow change at mild to moderate C3-C4 disc space narrowing is similar to prior exam. Craniocervical junction is normal. No gross cord signal alteration. C2-C3 has mild pseudo-disc bulge from spondylolisthesis. There is mild ligamentum flavum hypertrophy but no significant central canal compromise. Neural foramen are patent. Mild bilateral facet hypertrophy with left side dominance. C3-C4 has mild hypertrophic discogenic change. Slight central canal narrowing. There is bilateral right greater than left uncovertebral hypertrophy with moderate to advanced bilateral neural foraminal stenosis. There is asymmetric left facet hypertrophy. Posterior disc margins at C4-C5 and C5-C6 are unremarkable. Right C4-C5 neural foramen is moderately narrowed. Left C5-C6 neural foramen appears significantly narrowed. No facet hypertrophy at either level. At C6-C7 posterior disc margin is normal. Neural foramen assessment is somewhat limited due to motion misregistration. Moderate to advanced right and at least moderate left neural foraminal stenosis. At C7-T1 there is moderate pseudo-disc bulge. Ligamentum flavum hypertrophy contributes to mild to moderate central canal stenosis. Cord is not compressed. Neural foramen diameter is are somewhat difficult to assess in this area. Moderate to advanced right and at least moderate left neural foraminal stenosis suggested. Both facet joints are hypertrophic. T1-T2 has minimal diffuse disc bulge. T2-T3 has mild diffuse disc bulge. Procedure Note Spring Márquez MD - 04/25/2017 MRI CERVICAL SPINE WITHOUT CONTRAST: 04/25/2017 COMPARISON: 01/13/2014. INDICATION: 61-year-old with history of cervical stenosis and spinesurgery. Right arm and hand numbness and tingling since November 26, 2016.M48.02-Spinal stenosis, cervical [id number] T84.216A-Breakdown (mechanical) of internal fixation device ofvertebrae, initial [id number]. TECHNICAL FACTORS: Sagittal and axial T1 and T2 weighted sequencesobtained on 3.0 Winifred magnet. Sagittal STIR sequence also obtained. Sagittal STIRsequence performed twice. FINDINGS: There is anterior C4-C7 fusion with hardware similar to prior exam. Spineis straight. There is 2 mm stable anterolisthesis of L2 with respect to L3. Posterior margin of inferior posterior C7 is partially obscured from postsurgical change and susceptibility artifact. There does appear to beat least 4 mm anterolisthesis C7 with respect to T1 posteriorly andpotentially up to 5 mm subluxation anteriorly. This subluxation and interval poorlydefined margins of superior C7-T1 disc space are new changes from 2014. Also newis greater ligamentum flavum hypertrophy at C7-T1. Mild inferior C3 sub endplate degenerative marrow change at mild tomoderate C3-C4 disc space narrowing is similar to prior exam. Craniocervicaljunction is normal. No gross cord signal alteration. C2-C3 has mild pseudo-disc bulge from spondylolisthesis. There is mild ligamentum flavum hypertrophy but no significant central canalcompromise. Neural foramen are patent. Mild bilateral facet hypertrophy with leftside dominance. C3-C4 has mild hypertrophic discogenic change. Slight central canalnarrowing. There is bilateral right greater than left uncovertebral hypertrophywith moderate to advanced bilateral neural foraminal stenosis. There isasymmetric left facet hypertrophy. Posterior disc margins at C4-C5 and C5-C6 are unremarkable. Right C4-U8yqyshn foramen is moderately narrowed. Left C5-C6 neural foramen appearssignificantly narrowed. No facet hypertrophy at either level. At C6-C7 posterior disc margin is normal. Neural foramen assessment issomewhat limited due to motion misregistration. Moderate to advanced right and atleast moderate left neural foraminal stenosis. At C7-T1 there is moderate pseudo-disc bulge. Ligamentum flavumhypertrophy contributes to mild to moderate central canal stenosis. Cord is notcompressed. Neural foramen diameter is are somewhat difficult to assess in thisarea. Moderate to advanced right and at least moderate left neural foraminalstenosis suggested. Both facet joints are hypertrophic. T1-T2 has minimal diffuse disc bulge. T2-T3 has mild diffuse disc bulge. IMPRESSION: 1. ACDF C4-C7 with new 4 to 5 mm anterolisthesis of C7 with respect toT1. Associated moderate pseudo-disc bulge and moderate ligamentum flavumhypertrophy contribute to mild to moderate central canal stenosis. Mild diffuse discbulge at C3-C4. 2. Significant left C5-C6 neural foraminal stenosis. Moderate toadvanced bilateral C3-C4, right C6-C7 and right C7-T1 neural foraminal stenosis. Atleast moderate stenosis right C4-C5, left C6-C7 and left C7-T1. us Itz Mai MD IMG MRI ORDERABLES Final Resul t * SCANNED PRE/POST PROCEDURES (02/28/2014 1:47 PM EDT) Narrative Procedure Note Unknown, Unknown - 02/28/2014 1:47 PM EDT us Unknown Unknown PROCEDURE/MINOR SURGICAL ORDERAB LES Final Result * SCANNED ANESTHESIA FORMS (02/28/2014 1:47 PM EDT) Narrative Procedure Note Unknown, Unknown - 02/28/2014 1:47 PM EDT us Unknown Unknown PROCEDURE/MINOR SURGICAL ORDERAB LES Final Result * MRI SHOULDER RIGHT WO CONTRAST (02/03/2014 1:38 PM EDT) Anatomical Region Laterality Modality Shoulder Magnetic Resonan ce 02/03/2014 12:5 7 PM EDT Impressions 02/03/2014 3:13 PM EDT IMPRESSION: AC joint arthropathy. Severe glenohumeral joint osteoarthritis. High-grade partial-thickness undersurface tears supraspinatus and infraspinatus tendons. Narrative 02/03/2014 3:13 PM EDT MRI SHOULDER RIGHT WO CONTRAST Feb 03, 2014 01:38:14 PM Clinical: Neck and right shoulder pain. Routine imaging was done with a 1.5 Winifred magnet. Moderate tendinosis changes involve the supraspinatus and infraspinatus tendons. There are are fairly large partial width partial-thickness undersurface tears of the infraspinatus and supraspinatus tendons involving 50% or more the thickness of those tendons. No displaced or full-thickness supraspinatus room for spinatus tendon tear. Tendinosis changes present in the subscapularis without evidence of tear. The teres minor is intact. Muscle bulk of the rotator cuff is intact. There is severe loss of cartilage of the humeral head and glenoid. Spotty marrow edema is present in the humeral head and greater tuberosity without a discrete fracture. The biceps tendon is normally seated. Severe tendinosis changes are present in its intra-articular portion. There is continuity to the biceps labral anchor. The labrum is diffusely thinned and increased in signal with multiple para labral cysts. Severe hypertrophic AC joint changes are present with fluid in the AC joint. Procedure Note Amrit Gonzalez MD - 02/03/2014 MRI SHOULDER RIGHT WO CONTRAST Feb 03, 2014 01:38:14 PM Clinical: Neck and right shoulder pain. Routine imaging was done with a 1.5 Winifred magnet. Moderate tendinosis changes involve the supraspinatus and infraspinatustendons. There are are fairly large partial width partial-thickness undersurface tears of theinfraspinatus and supraspinatus tendons involving 50% or more the thickness of thosetendons. No displaced or full-thickness supraspinatus room for spinatus tendon tear. Tendinosischanges present in the subscapularis without evidence of tear. The teres minor is intact. Musclebulk of the rotator cuff is intact. There is severe loss of cartilage of the humeral head and glenoid. Spottymarrow edema is present in the humeral head and greater tuberosity without a discretefracture. The biceps tendon is normally seated. Severe tendinosis changes are present in itsintra-articular portion. There is continuity to the biceps labral anchor. The labrum isdiffusely thinned and increased in signal with multiple para labral cysts. Severe hypertrophicAC joint changes are present with fluid in the AC joint. IMPRESSION: AC joint arthropathy. Severe glenohumeral jointosteoarthritis. High- grade partial-thickness undersurface tears supraspinatus and infraspinatustendons. us Alvarez Jaimes MD IM MRI ORDERABLES Final Result * SCANNED ANESTHESIA FORMS (09/06/2011 10:17 AM EST) Narrative Transcriptions Unknown, Unknown - 09/06/2011 10:16 AM EST us Unknown Unknown PROCEDURE/MINOR SURGICAL ORDERAB LES Final Result * SCANNED OR REPORT (09/02/2011 6:04 PM EST) Narrative Transcriptions Unknown, Unknown - 09/02/2011 6:04 PM EST us Unknown Unknown PROCEDURE/MINOR SURGICAL ORDERAB LES Final Result * BODY FLUID CULTURE (08/10/2011 3:45 PM EST) Final No growth at 3 days. [facility] GS Few WBC's Moderate RBC's No organisms seen [facility] Joint fluid specimen (specimen) STRUCTURE OF LEFT KNEE REGION / Unknown 08/10/2011 3:45 PM EST 08/10/2011 4:50 PM EST Narrative [facility] - 08/14/2011 7:55 AM EST Left knee us Yuli Fermin MD MICROBIOLOGY - GENERAL ORDERABL ES Final Result Performing Organization Address [facility] Co de Phone Number [facility] [address] [place] [address] * ANAEROBIC CULTURE (08/10/2011 3:45 PM EST) Final No anaerobic growth at 5 days [facility] Joint fluid specimen (specimen) STRUCTURE OF LEFT KNEE REGION / Unknown 08/10/2011 3:45 PM EST 08/10/2011 4:50 PM EST Narrative [facility] - 08/16/2011 5:01 PM EST Left knee us Yuli Fermin MD MICROBIOLOGY - GENERAL ORDERABL ES Final Result Performing Organization Address [facility] de Phone Number [facility] [address] [place] [address] * JOINT FLUID CRYSTALS (08/10/2011 3:45 PM EST) Crystal JF None Seen [facility] Joint fluid specimen (specimen) 08/10/2011 3:45 PM EST 08/10/2011 4:44 PM EST Narrative [facility] - 08/10/2011 8:32 PM EST Left knee Yuli Fermin MD BODY FLUIDS AND STOOLS ORDERABL ES Final Result Performing Organization Address [facility] Co de Phone Number [facility] [address] [place] [address] * JOINT FLUID CELL COUNT (08/10/2011 3:45 PM EST) Source JF Left Knee [facility] Color JF Red [facility] Appear JF Turbid [facility] RBC JF 667 /mcL [facility] WBC JF 6389 /mcL [facility] Segs JF 31 % [facility] Lymphs JF 28 % [facility] Macrophages JF 39 % [facility] Other JF 2 % [facility] Comment:eosinophl Joint fluid specimen (specimen) 08/10/2011 3:45 PM EST 08/10/2011 4:44 PM EST Narrative [facility] - 08/10/2011 6:10 PM EST Left knee us Ylui Fermin MD BODY FLUIDS AND STOOLS ORDERABL ES Final Result [facility] [address] [place] [address] * SCANNED PRE/POST PROCEDURES (11/12/2010 12:00 AM EDT) Narrative 11/12/2010 1:34 PM EDT Ordered by an unspecified provider. Transcriptions Unknown, Unknown - 11/12/2010 1:26 PM EDT us Unknown Unknown PROCEDURE/MINOR SURGICAL ORDERAB LES Final Result * SCANNED ANESTHESIA FORMS (11/12/2010 12:00 AM EDT) Narrative 11/12/2010 1:34 PM EDT Ordered by an unspecified provider. Transcriptions Unknown, Unknown - 11/12/2010 1:26 PM EDT us Unknown Unknown PROCEDURE/MINOR SURGICAL ORDERAB LES Final Result * XR WRIST LEFT PA AND LATERAL (11/10/2010 8:29 AM EDT) Anatomical Region Laterality Modality Wrist Radiographic Crystal ging 11/10/2010 8:07 AM EDT Impressions 11/10/2010 9:57 AM EDT IMPRESSION: 1. 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 This could be confirmed with CT if clinically indicated. There appears to be osteonecrosis of the proximal pole and secondary degenerative disease between the radiocarpal joint space. 2. Concern for triquetral fracture, also chronic. 3. CMC (carpometacarpal) disease. Narrative 11/10/2010 9:57 AM EDT LEFT WRIST INDICATION: Pain status post trauma. HISTORY: Pain status post trauma. Two views of the left wrist demonstrate evidence of old, chronic, scaphoid fracture with collapse and osteonecrosis proximally. Secondary degenerative changes are seen at the radiocarpal joint space. There is joint space narrowing, osteophyte formation and sclerosis. There is evidence of a triquetral fracture as well. This too may be chronic. Given this patient's baseline disease, CT evaluation is recommended for acuity. In addition to the degenerative disease at the radiocarpal joint space, there is degenerative disease along the first CMC. Procedure Note Raffy Hernandez MD - 11/10/2010 LEFT WRIST INDICATION: Pain status post trauma. HISTORY: Pain status post trauma. Two views of the left wrist demonstrate evidence of old, chronic, scaphoidfracture with collapse and osteonecrosis proximally. Secondary degenerative changes areseen at the radiocarpal joint space. There is joint space narrowing, osteophyteformation and sclerosis. There is evidence of a triquetral fracture as well. This too may bechronic. Given this patient's baseline disease, CT evaluation is recommended for acuity. Inaddition to the degenerative disease at the radiocarpal joint space, there is degenerativedisease along the first CMC. IMPRESSION: 1. 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 Thiscould be confirmed with CT if clinically indicated. There appears to be osteonecrosis of theproximal pole and secondary degenerative disease between the radiocarpal joint space. 2. Concern for triquetral fracture, also chronic. 3. CMC (carpometacarpal) disease. us Yuli Fermin MD IMG DIAGNOSTIC IMAGING ORDERABL ES Final Result * HIV AG/AB (11/08/2010 12:15 PM EDT) HIV Ag/AB Non-Reactiv e [facility] Blood specimen (specimen) 11/08/2010 12:15 PM EDT 11/08/2010 12:26 PM EDT us Spring Varma MD IMMUNOLOGY ORDERABLES Final R esult [facility] [address] [place] [address] * TROPONIN-I (11/08/2010 12:15 PM EDT) [facility] Troponin-I 0.02 <=0.06 ng/mL [facility] Comment: Troponin Level Significance < 0.01 ng/mL Negative 0.01 - 0.06 ng/mL Detectable troponin of unknown significance >= 0.07 Possible myocardial injury Note: A variety of mechanisms may cause myocardial injury. The diagnosis of myocardial infarction depends both on elevated levels of troponin and on clinical data that support ischemia as a cause. It is not possible to reliably discriminate ischemic from nonischemic causes by a single cutoff level. However, a rising or falling pattern of troponin values is helpful in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 screening for nutritional disorder Screening for other and unspecified endocrine, nutritional, metabolic, and immunity disorders 02/27/2017 Screening for colon cancer Special screening for malignant neoplasms, colon 02/27/2017 Well adult exam Routine general medical examination at a health care facility 02/27/2017 Essential hypertension Unspecified essential hypertension 04/25/2017 Screening for deficiency anemia Screening for other and unspecified deficiency anemia 04/25/2017 Cervical stenosis of spine Spinal stenosis in cervical region 04/25/2017 Hardware failure of anterior column of spine 04/25/2017 Ulnar neuropathy of both upper extremities Lesion of ulnar nerve 04/25/2017 Carpal tunnel syndrome of left wrist Carpal tunnel syndrome 04/25/2017 Cervical radiculopathy Brachial neuritis or radiculitis nos 04/25/2017 Wrist sprain, left, initial encounter 05/11/2017 Injury of left hand, initial encounter 05/11/2017 Fall, initial encounter 05/11/2017 Chronic atrial fibrillation (HCC) Atrial fibrillation 06/21/2017 Chronic atrial fibrillation (HCC) Atrial fibrillation 06/21/2017 Mitral valve disease Other and unspecified mitral valve diseases 06/21/2017 Pre-op examination Preoperative examination, unspecified 06/21/2017 Essential hypertension Unspecified essential hypertension 06/21/2017 Chronic atrial fibrillation (HCC) Atrial fibrillation 06/21/2017 Mitral valve disease Other and unspecified mitral valve diseases 06/21/2017 Ulnar neuropathy at elbow, right 06/21/2017 Pre-op examination Preoperative examination, unspecified 06/21/2017 Male hypogonadism Other testicular hypofunction 08/02/2017 Lumbago-sciatica due to displacement of lumbar intervertebral disc Displacement of lumbar intervertebral disc without myelopathy 09/25/2017 Laceration of left lower extremity, initial encounter 11/17/2017 Chronic atrial fibrillation (HCC) Atrial fibrillation 11/28/2017 Low testosterone Other testicular hypofunction 11/28/2017 DDD (degenerative disc disease), lumbar Degeneration of lumbar or lumbosacral intervertebral disc 11/28/2017 DDD (degenerative disc disease), cervical Degeneration of cervical intervertebral disc 11/28/2017 Essential hypertension Unspecified essential hypertension 11/28/2017 Low testosterone Other testicular hypofunction 2017 Chronic atrial fibrillation (HCC) Atrial fibrillation 12/19/2017 Low testosterone Other testicular hypofunction 01/02/2018 Low testosterone Other testicular hypofunction 01/05/2018 Low testosterone Other testicular hypofunction 02/02/2018 Low testosterone Other testicular hypofunction 02/05/2018 Chronic atrial fibrillation (HCC) Atrial fibrillation 02/07/2018 Essential hypertension Unspecified essential hypertension 02/07/2018 Class 1 obesity due to excess calories without serious comorbidity with body mass index (BMI) of 33.0 to 33.9 in adult 02/07/2018 Ulnar neuropathy at elbow, right 02/27/2018 Essential hypertension Unspecified essential hypertension 02/27/2018 DDD (degenerative disc disease), cervical Degeneration of cervical intervertebral disc 02/27/2018 Paroxysmal atrial fibrillation (HCC) Atrial fibrillation 02/27/2018 Annual physical exam Routine general medical examination at a health care facility 02/27/2018 Screening for colon cancer Special screening for malignant neoplasms, colon 02/27/2018 Screening for thyroid disorder 02/27/2018 Screening for diabetes mellitus 02/27/2018 Screening for hyperlipidemia Screening for lipoid disorders 02/27/2018 Chronic bilateral low back pain without sciatica 02/27/2018 Screening for deficiency anemia Screening for other and unspecified deficiency anemia 02/27/2018 Screening for prostate cancer Special screening for malignant neoplasm of prostate 02/27/2018 Low testosterone Other testicular hypofunction 02/27/2018 Low testosterone Other testicular hypofunction 03/08/2018 Low testosterone Other testicular hypofunction 04/06/2018 Low testosterone Other testicular hypofunction 05/08/2018 Annual physical exam Routine general medical examination at a health care facility 05/21/2018 Screening for prostate cancer Special screening for malignant neoplasm of prostate 05/21/2018 Screening for deficiency anemia Screening for other and unspecified deficiency anemia 05/21/2018 Screening for diabetes mellitus 05/21/2018 Screening for thyroid disorder 05/21/2018 Low testosterone Other testicular hypofunction 05/21/2018 Hyperglycemia Other abnormal glucose 05/21/2018 Screening for colon cancer Special screening for malignant neoplasms, colon 11/08/2018 Screening for cancer of the rectum Screening for malignant neoplasm of the rectum 11/08/2018 Chronic atrial fibrillation (HCC) Atrial fibrillation 02/11/2019 Positive colorectal cancer screening using Cologuard test 04/01/2019 Paroxysmal atrial fibrillation (HCC) Atrial fibrillation 04/09/2019 Annual physical exam Routine general medical examination at a health care facility 04/09/2019 Class 1 obesity due to excess calories without serious comorbidity with body mass index (BMI) of 33.0 to 33.9 in adult 04/09/2019 DDD (degenerative disc disease), cervical Degeneration of cervical intervertebral disc 04/09/2019 Essential hypertension Unspecified essential hypertension 04/09/2019 Low testosterone Other testicular hypofunction 04/09/2019 Mitral valve disease Other and unspecified mitral valve diseases 04/09/2019 Screening for thyroid disorder 04/09/2019 Screening for deficiency anemia Screening for other and unspecified deficiency anemia 04/09/2019 Screening for hyperlipidemia Screening for lipoid disorders 04/09/2019 Positive colorectal cancer screening using Cologuard test 04/09/2019 Chronic pain of left knee Pain in joint, lower leg 04/09/2019 History of left knee replacement 04/09/2019 Chronic atrial fibrillation (HCC) Atrial fibrillation 08/12/2019 Chronic atrial fibrillation (HCC) Atrial fibrillation 09/09/2019 Essential hypertension Unspecified essential hypertension 09/09/2019 NSTEMI (non-ST elevated myocardial infarction) (HCC) Acute myocardial infarction, subendocardial infarction, episode of care unspecified 10/15/2019 Right-sided chest pain 10/12/2019 Elevated troponin Other abnormal blood chemistry 10/12/2019 Shortness of breath 10/12/2019 Suspected COVID-19 virus infection 10/12/2019 Atrial fibrillation, unspecified type (HCC) 10/12/2019 Coronary artery disease involving [place] heart with angina pectoris, unspecified vessel or lesion type 10/17/2019 Acute ischemic heart disease (HCC) Acute myocardial infarction, unspecified site, episode of care unspecified 10/17/2019 Cardiogenic shock (HCC) Cardiogenic shock 10/17/2019 Cardiac arrhythmia, unspecified cardiac arrhythmia type 10/21/2019 S/P CABG (coronary artery bypass graft) Postsurgical aortocoronary bypass status 10/30/2019 Chest pain, unspecified type 10/15/2019 ST elevation myocardial infarction (STEMI), unspecified artery (HCC) 10/15/2019 Coronary artery disease involving [place] heart with angina pectoris, unspecified vessel or lesion type 10/15/2019 Cardiac arrhythmia, unspecified cardiac arrhythmia type 10/15/2019 S/P CABG (coronary artery bypass graft) Postsurgical aortocoronary bypass status 11/05/2019 Atherosclerotic heart disease of [place] coronary artery with unspecified angina pectoris 11/06/2019 Hx of mitral valve replacement Heart valve replaced by other means 11/07/2019 S/P CABG x 2 Postsurgical aortocoronary bypass status 11/07/2019 SOB (shortness of breath) Shortness of breath 11/14/2019 S/P CABG x 2 Postsurgical aortocoronary bypass status 11/14/2019 Hx of mitral valve replacement Heart valve replaced by other means 11/14/2019 Chronic atrial fibrillation (HCC) Atrial fibrillation 11/23/2019 SOB (shortness of breath) Shortness of breath 11/29/2019 Ventricular fibrillation (HCC) Ventricular fibrillation 12/03/2019 Cardiogenic shock (HCC) Cardiogenic shock 12/03/2019 S/P CABG x 2 Postsurgical aortocoronary bypass status 12/05/2019 Hx of mitral valve replacement Heart valve replaced by other means 12/05/2019 Chronic atrial fibrillation (HCC) Atrial fibrillation 01/30/2020 Hx of mitral valve replacement Heart valve replaced by other means 01/30/2020 Essential hypertension Unspecified essential hypertension 01/30/2020 S/P CABG x 2 Postsurgical aortocoronary bypass status 01/30/2020 ICD (implantable cardioverter-defibrillator) in place 02/07/2020 Encounter for implantable defibrillator reprogramming or check Fitting and adjustment of automatic implantable cardiac defibrillator 02/07/2020 Essential hypertension Unspecified essential hypertension 04/22/2020 Chronic atrial fibrillation (HCC) Atrial fibrillation 04/22/2020 Hx of mitral valve replacement Heart valve replaced by other means 04/22/2020 Ventricular fibrillation (HCC) Ventricular fibrillation 05/08/2020 ICD (implantable cardioverter-defibrillator) in place 05/08/2020 Cardiogenic shock (HCC) Cardiogenic shock 05/08/2020 PAF (paroxysmal atrial fibrillation) (HCC) Atrial fibrillation 05/11/2020 Chronic atrial fibrillation (HCC) Atrial fibrillation 05/28/2020 Essential hypertension Unspecified essential hypertension 05/28/2020 Ischemic cardiomyopathy Other specified forms of chronic ischemic heart disease 05/28/2020 Need for vaccination Need for prophylactic vaccination and inoculation against unspecified single disease 07/23/2020 Essential hypertension Unspecified essential hypertension 07/23/2020 Ischemic cardiomyopathy Other specified forms of chronic ischemic heart disease 07/23/2020 Ventricular fibrillation (HCC) Ventricular fibrillation 08/08/2020 ICD (implantable cardioverter-defibrillator) in place 08/08/2020 Encounter for Medicare annual wellness exam Routine general medical examination at a [facility] facility 08/11/2020 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 08/11/2020 Essential hypertension Unspecified essential hypertension 08/11/2020 Permanent atrial fibrillation (HCC) Atrial fibrillation 08/11/2020 Screening for thyroid disorder 08/11/2020 Encounter for screening for lipid disorder 08/11/2020 Screening for metabolic disorder 08/11/2020 Screening for iron deficiency anemia 08/11/2020 Hyperkalemia Hyperpotassemia 08/12/2020 PAD (peripheral artery disease) Unspecified disorders of arteries and arterioles 09/01/2020 Open wound of left great toe, initial encounter 09/01/2020 Ingrown toenail of left foot 09/01/2020 PAD (peripheral artery disease) Unspecified disorders of arteries and arterioles 09/04/2020 Open wound of left great toe, initial encounter 09/04/2020 Ingrown left big toenail Ingrowing nail 09/11/2020 Ingrowing toenail with infection Ingrowing nail 09/11/2020 Pain in toes of both feet 09/11/2020 Abscess of second toenail of left foot Onychia and paronychia of toe 09/11/2020 Abscess of second toenail of right foot Onychia and paronychia of toe 09/11/2020 Ingrown left big toenail Ingrowing nail 09/18/2020 Ingrowing toenail with infection Ingrowing nail 09/18/2020 Pain in toes of both feet 09/18/2020 Abscess of second toenail of right foot Onychia and paronychia of toe 09/18/2020 Abscess of second toenail of left foot Onychia and paronychia of toe 09/18/2020 Onychauxis Other specified disease of nail 09/18/2020 Ingrown left big toenail Ingrowing nail 09/25/2020 Ingrowing toenail with infection Ingrowing nail 09/25/2020 Pain in toes of both feet 09/25/2020 Abscess of second toenail of right foot Onychia and paronychia of toe 09/25/2020 Abscess of second toenail of left foot Onychia and paronychia of toe 09/25/2020 Onychauxis Other specified disease of nail 09/25/2020 Ingrowing toenail with infection Ingrowing nail 10/09/2020 Pain in toes of both feet 10/09/2020 Onychauxis Other specified disease of nail 10/09/2020 Abscess of second toenail of left foot Onychia and paronychia of toe 10/09/2020 Abscess of second toenail of right foot Onychia and paronychia of toe 10/09/2020 Ingrown left big toenail Ingrowing nail 10/09/2020 Pain in toes of both feet 11/06/2020 Ingrown left big toenail Ingrowing nail 11/06/2020 Abrasion of lesser toe of left foot, initial encounter 11/06/2020 Ventricular fibrillation (HCC) Ventricular fibrillation 11/09/2020 ICD (implantable cardioverter-defibrillator) in place 11/09/2020 Cardiogenic shock (HCC) Cardiogenic shock 11/09/2020 Chronic atrial fibrillation (HCC) Atrial fibrillation 11/26/2020 Hx of mitral valve replacement Heart valve replaced by other means 11/26/2020 Ischemic cardiomyopathy Other specified forms of chronic ischemic heart disease 11/26/2020 Pain in toes of both feet 11/27/2020 Ingrown left big toenail Ingrowing nail 11/27/2020 Abrasion of lesser toe of left foot, subsequent encounter 11/27/2020 Hx of mitral valve replacement Heart valve replaced by other means 01/19/2021 Ischemic cardiomyopathy Other specified forms of chronic ischemic heart disease 01/19/2021 ICD (implantable cardioverter-defibrillator) in place 02/05/2021 Encounter for implantable defibrillator reprogramming or check Fitting and adjustment of automatic implantable cardiac defibrillator 02/05/2021 Essential hypertension Unspecified essential hypertension 02/24/2021 Chronic atrial fibrillation (HCC) Atrial fibrillation 02/24/2021 Ischemic cardiomyopathy Other specified forms of chronic ischemic heart disease 02/24/2021 S/P CABG x 2 Postsurgical aortocoronary bypass status 02/24/2021 Hx of mitral valve replacement Heart valve replaced by other means 02/24/2021 Permanent atrial fibrillation (HCC) Atrial fibrillation 06/10/2021 S/P CABG x 2 Postsurgical aortocoronary bypass status 06/10/2021 Dyslipidemia Other and unspecified hyperlipidemia 06/10/2021 NSVT (nonsustained ventricular tachycardia) (HCC) Paroxysmal ventricular tachycardia 06/14/2021 NSTEMI (non-ST elevated myocardial infarction) (HCC) Acute myocardial infarction, subendocardial infarction, episode of care unspecified 06/14/2021 Ventricular fibrillation (HCC) Ventricular fibrillation 06/14/2021 ICD (implantable cardioverter-defibrillator), single, in situ 06/14/2021 Chronic pain of left knee Pain in joint, lower leg 07/09/2021 History of knee joint replacement 07/09/2021 Chronic pain of left knee Pain in joint, lower leg 07/12/2021 History of knee joint replacement 07/12/2021 Chronic pain of left knee Pain in joint, lower leg 07/14/2021 NSVT (nonsustained ventricular tachycardia) (HCC) Paroxysmal ventricular tachycardia 08/14/2021 S/P CABG x 2 Postsurgical aortocoronary bypass status 08/20/2021 SOB (shortness of breath) Shortness of breath 08/20/2021 ICD (implantable cardioverter-defibrillator), single, in situ 09/23/2021 Ventricular fibrillation (HCC) Ventricular fibrillation 09/23/2021 NSVT (nonsustained ventricular tachycardia) (HCC) Paroxysmal ventricular tachycardia 09/23/2021 Radiculopathy, lumbar region Thoracic or lumbosacral neuritis or radiculitis, unspecified 10/15/2021 S/P CABG x 2 Postsurgical aortocoronary bypass status 10/26/2021 SOB (shortness of breath) Shortness of breath 10/26/2021 ASHD (arteriosclerotic heart disease) Coronary atherosclerosis of unspecified type of vessel, [place] or graft 10/27/2021 NSVT (nonsustained ventricular tachycardia) (HCC) Paroxysmal ventricular tachycardia 11/09/2021 Vector Remote Device 12/23/2021 Encounter for implantable defibrillator reprogramming or check Fitting and adjustment of automatic implantable cardiac defibrillator 02/08/2022 Cardiogenic shock (HCC) Cardiogenic shock 02/08/2022 Ventricular fibrillation (HCC) Ventricular fibrillation 02/08/2022 Permanent atrial fibrillation (HCC) Atrial fibrillation 02/08/2022 ICD (implantable cardioverter-defibrillator), single, in situ 02/08/2022 ICD (implantable cardioverter-defibrillator), single, in situ 02/08/2022 Lumbar radiculopathy Thoracic or lumbosacral neuritis or radiculitis, unspecified 03/04/2022 Spinal stenosis, unspecified spinal region 03/04/2022 Vector Remote Device 03/25/2022 Pre-op examination Preoperative examination, unspecified 04/26/2022 Chronic systolic heart failure (HCC) Chronic systolic heart failure 04/26/2022 PAD (peripheral artery disease) Unspecified disorders of arteries and arterioles 04/26/2022 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 04/26/2022 Atypical nevus Benign neoplasm of skin, site unspecified 04/26/2022 Paroxysmal atrial fibrillation (HCC) Atrial fibrillation 04/26/2022 ASHD (arteriosclerotic heart disease) Coronary atherosclerosis of unspecified type of vessel, [place] or graft 04/28/2022 NSVT (nonsustained ventricular tachycardia) (HCC) Paroxysmal ventricular tachycardia 05/13/2022 Screening for cancer of the rectum Screening for malignant neoplasm of the rectum 05/16/2022 Screen for colon cancer Special screening for malignant neoplasms, colon 05/16/2022 Vector Remote Device 06/26/2022 Cervical radiculopathy Brachial neuritis or radiculitis nos 09/07/2022 Cervical radiculopathy Brachial neuritis or radiculitis nos 09/08/2022 Carpal tunnel syndrome of left wrist Carpal tunnel syndrome 09/08/2022 Vector Remote Device 09/25/2022 Vector Remote Device 10/25/2022 ASHD (arteriosclerotic heart disease) Coronary atherosclerosis of unspecified type of vessel, [place] or graft 10/27/2022 Vector Remote Device 11/15/2022 Vector Remote Device 11/18/2022 Chronic systolic heart failure (HCC) Chronic systolic heart failure 11/23/2022 Class 1 obesity due to excess calories without serious comorbidity with body mass index (BMI) of 33.0 to 33.9 in adult 11/23/2022 Mitral valve disease Other and unspecified mitral valve diseases 11/23/2022 Paroxysmal atrial fibrillation (HCC) Atrial fibrillation 11/23/2022 ICD (implantable cardioverter-defibrillator), single, in situ 11/23/2022 Implantable defibrillator reprogramming/check Fitting and adjustment of automatic implantable cardiac defibrillator 11/23/2022 Ventricular fibrillation (HCC) Ventricular fibrillation 11/23/2022 Paroxysmal atrial fibrillation (HCC) Atrial fibrillation 11/23/2022 Chronic systolic heart failure (HCC) Chronic systolic heart failure 11/23/2022 ICD (implantable cardioverter-defibrillator), single, in situ 11/23/2022 NSVT (nonsustained ventricular tachycardia) (HCC) Paroxysmal ventricular tachycardia 12/19/2022 Vector Remote Device 12/25/2022 Radiculopathy, unspecified spinal region 01/09/2023 Radiculopathy, lumbar region Thoracic or lumbosacral neuritis or radiculitis, unspecified 01/09/2023 Vector Remote Device 01/19/2023 Right hip pain Pain in joint, pelvic region and thigh 02/14/2023 Vector Remote Device 02/20/2023 NSVT (nonsustained ventricular tachycardia) (HCC) Paroxysmal ventricular tachycardia 02/20/2023 Vector Remote Device 03/26/2023 Screening for cancer of the rectum Screening for malignant neoplasm of the rectum 05/18/2023 Screen for colon cancer Special screening for malignant neoplasms, colon 05/18/2023 PAD (peripheral artery disease) Unspecified disorders of arteries and arterioles 05/31/2023 Ulcer of right lower leg, with unspecified severity (HCC) 05/31/2023 Non-pressure chronic ulcer of right lower leg, unspecified ulcer stage (HCC) 05/31/2023 Edema, unspecified type 05/31/2023 Primary hypertension Unspecified essential hypertension 06/07/2023 Vector Remote Device 06/26/2023 ASHD (arteriosclerotic heart disease) Coronary atherosclerosis of unspecified type of vessel, [place] or graft 07/06/2023 SOB (shortness of breath) Shortness of breath 07/06/2023 ASHD (arteriosclerotic heart disease) Coronary atherosclerosis of unspecified type of vessel, [place] or graft 07/27/2023 SOB (shortness of breath) Shortness of breath 07/27/2023 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 07/31/2023 ASHD (arteriosclerotic heart disease) Coronary atherosclerosis of unspecified type of vessel, [place] or graft 07/31/2023 SOB (shortness of breath) Shortness of breath 07/31/2023 ASHD (arteriosclerotic heart disease) Coronary atherosclerosis of unspecified type of vessel, [place] or graft 08/08/2023 SOB (shortness of breath) Shortness of breath 08/08/2023 Osteoarthritis of one hip, right 08/10/2023 Osteoarthritis of one hip, right 08/10/2023 Vector Remote Device 09/25/2023 Abnormal nuclear stress test Other nonspecific abnormal cardiovascular system function study 10/03/2023 Chest pain, unspecified type 10/03/2023 Chest pain, unspecified type 09/30/2023 Shortness of breath 09/30/2023 Lower extremity edema Edema 09/30/2023 Paroxysmal atrial fibrillation (HCC) Atrial fibrillation 10/11/2023 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 10/11/2023 NSTEMI (non-ST elevated myocardial infarction) (HCC) Acute myocardial infarction, subendocardial infarction, episode of care unspecified 10/11/2023 Chronic systolic heart failure (HCC) Chronic systolic heart failure 10/11/2023 Hx of mitral valve replacement Heart valve replaced by other means 10/11/2023 S/P CABG x 2 Postsurgical aortocoronary bypass status 10/11/2023 Primary hypertension Unspecified essential hypertension 10/11/2023 Osteoarthritis of one hip, right 10/17/2023 Open wound of right lower leg, initial encounter 10/17/2023 Chronic venous hypertension (idiopathic) with ulcer and inflammation of right lower extremity (HCC) 10/23/2023 Venous stasis ulcer of right lower leg with edema of right lower leg (HCC) 10/23/2023 Venous ulcer with fat layer exposed (HCC) 10/23/2023 Chronic systolic heart failure (HCC) Chronic systolic heart failure 10/23/2023 Paroxysmal atrial fibrillation (HCC) Atrial fibrillation 10/23/2023 Venous stasis ulcer of right lower leg with edema of right lower leg (HCC) 10/31/2023 Chronic venous hypertension (idiopathic) with ulcer and inflammation of right lower extremity (HCC) 10/31/2023 Venous insufficiency Unspecified venous (peripheral) insufficiency 10/31/2023 Venous stasis ulcer of right lower leg with edema of right lower leg ([facility]) 11/07/2023 Venous insufficiency Unspecified venous (peripheral) insufficiency 11/07/2023 Venous ulcer with fat layer exposed (HCC) 11/07/2023 Venous stasis ulcer of other part of right lower leg limited to breakdown of skin, unspecified whether varicose veins present ([facility]) 11/07/2023 Venous stasis ulcer of right lower leg with edema of right lower leg (HCC) 11/14/2023 Venous insufficiency Unspecified venous (peripheral) insufficiency 11/14/2023 Venous ulcer with fat layer exposed (HCC) 11/14/2023 Venous stasis ulcer of other part of right lower leg limited to breakdown of skin, unspecified whether varicose veins present ([facility]) 11/14/2023 Contusion of lesser toe of left foot without damage to nail, initial encounter 11/14/2023 Venous stasis ulcer of right lower leg with edema of right lower leg ([facility]) 11/21/2023 Venous insufficiency Unspecified venous (peripheral) insufficiency 11/21/2023 Osteoarthritis of one hip, right 11/23/2023 Osteoarthritis of one hip, right 11/23/2023 Osteoarthritis of one hip, right 11/24/2023 Bilateral leg edema Edema 11/28/2023 Primary hypertension Unspecified essential hypertension 11/30/2023 Paroxysmal atrial fibrillation (HCC) Atrial fibrillation 11/30/2023 NSTEMI (non-ST elevated myocardial infarction) ([facility]) Acute myocardial infarction, subendocardial infarction, episode of care unspecified 11/30/2023 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 11/30/2023 Ventricular fibrillation (HCC) Ventricular fibrillation 11/30/2023 single chamber ICD 11/30/2023 Acute on chronic HFrEF (heart failure with reduced ejection fraction) (HCC) 11/30/2023 Hx of mitral valve replacement Heart valve replaced by other means 11/30/2023 NSVT (nonsustained ventricular tachycardia) (HCC) Paroxysmal ventricular tachycardia 11/30/2023 Presence of automatic cardioverter/defibrillator (AICD) Automatic implantable cardiac defibrillator in situ 11/30/2023 Implantable defibrillator reprogramming/check Fitting and adjustment of automatic implantable cardiac defibrillator 11/30/2023 Paroxysmal atrial fibrillation (HCC) Atrial fibrillation 11/30/2023 Cardiogenic shock (HCC) Cardiogenic shock 11/30/2023 Ventricular fibrillation (HCC) Ventricular fibrillation 11/30/2023 Chronic systolic heart failure (HCC) Chronic systolic heart failure 11/30/2023 Vector Remote Device 12/01/2023 Non-pressure chronic ulcer of right lower leg with fat layer exposed (HCC) Ulcer of lower limb, unspecified 12/08/2023 Edema of both lower legs due to peripheral venous insufficiency 12/08/2023 Venous insufficiency Unspecified venous (peripheral) insufficiency 12/15/2023 Ingrowing nail 12/20/2023 Pyogenic granuloma of skin Pyogenic granuloma of skin and subcutaneous tissue 12/20/2023 Pain in toe of right foot Pain in limb 12/20/2023 Osteoarthritis of one hip, right 12/22/2023 Edema of both lower legs due to peripheral venous insufficiency 12/22/2023 Preop testing Preoperative examination, unspecified 12/25/2023 Anticoagulation adequate Encounter for long-term (current) use of anticoagulants 12/25/2023 Vector Remote Device 12/26/2023 Vector Remote Device 12/27/2023 Osteoarthritis of one hip, right 12/27/2023 Status post hip replacement, right 01/09/2024 Status post hip replacement, right 01/09/2024 Status post hip replacement, right 01/09/2024 Bilateral leg edema Edema 01/16/2024 Non-pressure chronic ulcer of right lower leg with fat layer exposed (HCC) Ulcer of lower limb, unspecified 01/19/2024 Edema of both lower legs due to peripheral venous insufficiency 01/19/2024 Non-pressure chronic ulcer of other part of left lower leg with fat layer exposed (HCC) 01/19/2024 Symptom of leg swelling 01/23/2024 Edema of both lower legs due to peripheral venous insufficiency 01/23/2024 Non-pressure chronic ulcer of right lower leg with fat layer exposed (HCC) Ulcer of lower limb, unspecified 01/26/2024 Non-pressure chronic ulcer of other part of left lower leg with fat layer exposed (HCC) 01/26/2024 Paroxysmal atrial fibrillation (HCC) Atrial fibrillation 01/29/2024 Chronic systolic heart failure (HCC) Chronic systolic heart failure 01/29/2024 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 01/29/2024 Primary hypertension Unspecified essential hypertension 01/29/2024 Mitral valve disease Other and unspecified mitral valve diseases 01/29/2024 Hx of mitral valve replacement Heart valve replaced by other means 01/29/2024 PAD (peripheral artery disease) Unspecified disorders of arteries and arterioles 01/29/2024 S/P CABG x 2 Postsurgical aortocoronary bypass status 01/29/2024 single chamber ICD 01/29/2024 Bilateral leg edema Edema 01/30/2024 Non-pressure chronic ulcer of right lower leg with fat layer exposed (HCC) Ulcer of lower limb, unspecified 02/02/2024 Non-pressure chronic ulcer of other part of left lower leg with fat layer exposed (HCC) 02/02/2024 Edema of both lower legs due to peripheral venous insufficiency 02/02/2024 Status post hip replacement, right 02/08/2024 Status post hip replacement, right 02/08/2024 Paroxysmal atrial fibrillation (HCC) Atrial fibrillation 02/09/2024 Chronic systolic heart failure (HCC) Chronic systolic heart failure 02/09/2024 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 02/09/2024 Primary hypertension Unspecified essential hypertension 02/09/2024 Mitral valve disease Other and unspecified mitral valve diseases 02/09/2024 Hx of mitral valve replacement Heart valve replaced by other means 02/09/2024 PAD (peripheral artery disease) Unspecified disorders of arteries and arterioles 02/09/2024 S/P CABG x 2 Postsurgical aortocoronary bypass status 02/09/2024 single chamber ICD 02/09/2024 Bilateral leg edema Edema 02/09/2024 Non-pressure chronic ulcer of right lower leg with fat layer exposed (HCC) Ulcer of lower limb, unspecified 02/09/2024 Non-pressure chronic ulcer of other part of left lower leg with fat layer exposed (HCC) 02/09/2024 Edema of both lower legs due to peripheral venous insufficiency 02/09/2024 Venous insufficiency Unspecified venous (peripheral) insufficiency 02/09/2024 Bilateral leg edema Edema 02/12/2024 Non-pressure chronic ulcer of right lower leg with fat layer exposed (HCC) Ulcer of lower limb, unspecified 02/16/2024 Non-pressure chronic ulcer of other part of left lower leg with fat layer exposed (HCC) 02/16/2024 DDD (degenerative disc disease), lumbar Degeneration of lumbar or lumbosacral intervertebral disc 02/23/2024 Status post hip replacement, right 02/23/2024 Chronic left SI joint pain Disorders of sacrum 02/23/2024 Edema of both lower legs due to peripheral venous insufficiency 03/08/2024 Venous stasis ulcer of left lower leg with edema of left lower leg (HCC) 03/08/2024 Non-pressure chronic ulcer of right lower leg with fat layer exposed (HCC) Ulcer of lower limb, unspecified 03/08/2024 Non-pressure chronic ulcer of left lower leg, with fat layer exposed (HCC) 03/08/2024 DDD (degenerative disc disease), lumbar Degeneration of lumbar or lumbosacral intervertebral disc 03/14/2024 DDD (degenerative disc disease), lumbar Degeneration of lumbar or lumbosacral intervertebral disc 03/14/2024 Sacroiliac joint pain Disorders of sacrum 03/14/2024 SI (sacroiliac) joint dysfunction Disorders of sacrum 03/14/2024 Chronic low back pain, unspecified back pain laterality, unspecified whether sciatica present 03/14/2024 Lumbar degenerative disc disease Degeneration of lumbar or lumbosacral intervertebral disc 03/14/2024 Lumbar foraminal stenosis Spinal stenosis, lumbar region, without neurogenic claudication 03/14/2024 Lumbar spondylosis Lumbosacral spondylosis without myelopathy 03/14/2024 Lumbar radiculopathy Thoracic or lumbosacral neuritis or radiculitis, unspecified 03/14/2024 Lumbar pain Lumbago 03/14/2024 Myofascial pain Mylagia and myositis, unspecified 03/14/2024 DDD (degenerative disc disease), lumbar Degeneration of lumbar or lumbosacral intervertebral disc 03/21/2024 Sacroiliitis, not elsewhere classified 03/21/2024 Vector Remote Device 03/26/2024 Non-pressure chronic ulcer of right lower leg with fat layer exposed (HCC) Ulcer of lower limb, unspecified 03/29/2024 Edema of both lower legs due to peripheral venous insufficiency 03/29/2024 Venous stasis ulcer of right lower leg with edema of right lower leg (HCC) 03/29/2024 Chronic venous htn w ulcer and inflammation of r low extrem (HCC) 03/29/2024 Status post hip replacement, right 04/02/2024 Status post hip replacement, right 04/02/2024 Chronic low back pain, unspecified back pain laterality, unspecified whether sciatica present 04/02/2024 ASHD (arteriosclerotic heart disease) Coronary atherosclerosis of unspecified type of vessel, [place] or graft 04/04/2024 SOB (shortness of breath) Shortness of breath 04/04/2024 SI (sacroiliac) joint dysfunction Disorders of sacrum 04/05/2024 Sacroiliac joint pain Disorders of sacrum 04/05/2024 Sacroiliitis, not elsewhere classified 04/05/2024 Chronic low back pain, unspecified back pain laterality, unspecified whether sciatica present 04/05/2024 Vector Remote Device 04/11/2024 VT (ventricular tachycardia) (HCC) Paroxysmal ventricular tachycardia 04/12/2024 Non-pressure chronic ulcer of right lower leg, unspecified ulcer stage ([facility]) 04/16/2024 Varicose veins of leg with pain, right 04/16/2024 Varicose veins of leg with edema, right 04/16/2024 Ischemic cardiomyopathy Other specified forms of chronic ischemic heart disease 04/17/2024 Chronic systolic heart failure (HCC) Chronic systolic heart failure 04/17/2024 Cardiac arrest with ventricular fibrillation (HCC) 04/17/2024 ICD (implantable cardioverter-defibrillator), single, in situ 04/17/2024 Paroxysmal atrial fibrillation (HCC) Atrial fibrillation 04/17/2024 Implantable defibrillator reprogramming/check Fitting and adjustment of automatic implantable cardiac defibrillator 04/17/2024 Paroxysmal atrial fibrillation (HCC) Atrial fibrillation 04/17/2024 ICD (implantable cardioverter-defibrillator), single, in situ 04/17/2024 ASHD (arteriosclerotic heart disease) Coronary atherosclerosis of unspecified type of vessel, [place] or graft 04/19/2024 SI (sacroiliac) joint dysfunction Disorders of sacrum 04/25/2024 Vector Remote Device 05/03/2024 Lumbar foraminal stenosis Spinal stenosis, lumbar region, without neurogenic claudication 05/24/2024 Lumbar spondylosis Lumbosacral spondylosis without myelopathy 05/24/2024 Degeneration of intervertebral disc of lumbar region with discogenic back pain 05/24/2024 Lumbar pain Lumbago 05/24/2024 Myofascial pain Mylagia and myositis, unspecified 05/24/2024 Lumbar foraminal stenosis Spinal stenosis, lumbar region, without neurogenic claudication 05/24/2024 Lumbar spondylosis Lumbosacral spondylosis without myelopathy 05/24/2024 Degeneration of intervertebral disc of lumbar region with discogenic back pain 05/24/2024 Low back pain, unspecified back pain laterality, unspecified chronicity, unspecified whether sciatica present 05/24/2024 Myofascial pain Mylagia and myositis, unspecified 05/24/2024 SI (sacroiliac) joint dysfunction Disorders of sacrum 05/24/2024 Pain in other specified joint 05/24/2024 Postlaminectomy syndrome Postlaminectomy syndrome, unspecified region 05/24/2024 Vector Remote Device 06/03/2024 Non-pressure chronic ulcer of right lower leg, unspecified ulcer stage (HCC) 06/11/2024 Leg swelling Swelling of limb 06/11/2024 Varicose veins of leg with edema, right 06/11/2024 Paroxysmal atrial fibrillation (HCC) Atrial fibrillation 06/12/2024 Chronic systolic heart failure (HCC) Chronic systolic heart failure 06/12/2024 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 06/12/2024 Primary hypertension Unspecified essential hypertension 06/12/2024 Mitral valve disease Other and unspecified mitral valve diseases 06/12/2024 Hx of mitral valve replacement Heart valve replaced by other means 06/12/2024 PAD (peripheral artery disease) Unspecified disorders of arteries and arterioles 06/12/2024 S/P CABG x 2 Postsurgical aortocoronary bypass status 06/12/2024 single chamber ICD 06/12/2024 ASHD (arteriosclerotic heart disease) Coronary atherosclerosis of unspecified type of vessel, [place] or graft 06/13/2024 Lumbar foraminal stenosis Spinal stenosis, lumbar region, without neurogenic claudication 06/25/2024 Lumbar spondylosis Lumbosacral spondylosis without myelopathy 06/25/2024 Degeneration of intervertebral disc of lumbar region with discogenic back pain 06/25/2024 Lumbar pain Lumbago 06/25/2024 Myofascial pain Mylagia and myositis, unspecified 06/25/2024 Lumbar foraminal stenosis Spinal stenosis, lumbar region, without neurogenic claudication 06/26/2024 Lumbar spondylosis Lumbosacral spondylosis without myelopathy 06/26/2024 Degeneration of intervertebral disc of lumbar region with discogenic back pain 06/26/2024 Lumbar pain Lumbago 06/26/2024 Myofascial pain Mylagia and myositis, unspecified 06/26/2024 SI (sacroiliac) joint dysfunction Disorders of sacrum 06/26/2024 Non-pressure chronic ulcer of right lower leg, unspecified ulcer stage (HCC) 06/26/2024 Lumbar spondylosis Lumbosacral spondylosis without myelopathy 06/27/2024 Lumbar foraminal stenosis Spinal stenosis, lumbar region, without neurogenic claudication 06/27/2024 Degeneration of intervertebral disc of lumbar region with discogenic back pain 06/27/2024 ASHD (arteriosclerotic heart disease) Coronary atherosclerosis of unspecified type of vessel, [place] or graft 07/02/2024 SOB (shortness of breath) Shortness of breath 07/02/2024 Vector Remote Device 07/04/2024 Vector Remote Device 07/05/2024 Status post total hip replacement, right 07/09/2024 Status post total hip replacement, right 07/09/2024 Non-pressure chronic ulcer of right lower leg, unspecified ulcer stage (HCC) 07/16/2024 Lumbar spondylosis Lumbosacral spondylosis without myelopathy 07/17/2024 Lumbar foraminal stenosis Spinal stenosis, lumbar region, without neurogenic claudication 07/19/2024 Lumbar spondylosis Lumbosacral spondylosis without myelopathy 07/19/2024 Degeneration of intervertebral disc of lumbar region with discogenic back pain 07/19/2024 Lumbar pain Lumbago 07/19/2024 Myofascial pain Mylagia and myositis, unspecified 07/19/2024 SI (sacroiliac) joint dysfunction Disorders of sacrum 07/19/2024 Lumbar spondylosis Lumbosacral spondylosis without myelopathy 08/01/2024 Vector Remote Device 08/05/2024 ASHD (arteriosclerotic heart disease) Coronary atherosclerosis of unspecified type of vessel, [place] or graft 08/18/2024 Vector Remote Device 09/05/2024 PAD (peripheral artery disease) Unspecified disorders of arteries and arterioles 09/11/2024 Coronary artery disease due to calcified coronary lesion 09/11/2024 PAD (peripheral artery disease) Unspecified disorders of arteries and arterioles 09/19/2024 Coronary artery disease due to calcified coronary lesion 09/19/2024 PAD (peripheral artery disease) Unspecified disorders of arteries and arterioles 09/19/2024 Non-pressure chronic ulcer of right lower leg, unspecified ulcer stage (HCC) 09/23/2024 Coronary artery disease due to calcified coronary lesion 09/23/2024 ASHD (arteriosclerotic heart disease) Coronary atherosclerosis of unspecified type of vessel, [place] or graft 10/02/2024 Vector Remote Device 10/06/2024 Vector Remote Device 10/07/2024 Vector Remote Device 11/07/2024 VT (ventricular tachycardia) (HCC) Paroxysmal ventricular tachycardia 11/07/2024 Healthcare maintenance Routine general medical examination at a health care facility 11/07/2024 Shortness of breath 11/07/2024 Ischemic cardiomyopathy Other specified forms of chronic ischemic heart disease 11/07/2024 Implantable defibrillator reprogramming/check Fitting and adjustment of automatic implantable cardiac defibrillator 11/07/2024 ICD (implantable cardioverter-defibrillator), single, in situ 11/07/2024 Status post total hip replacement, right 11/14/2024 Status post total hip replacement, right 11/14/2024 Vector Remote Device 11/21/2024 NSVT (nonsustained ventricular tachycardia) (HCC) Paroxysmal ventricular tachycardia 11/25/2024 Status post total hip replacement, right 12/03/2024 VT (ventricular tachycardia) (HCC) Paroxysmal ventricular tachycardia 12/03/2024 Healthcare maintenance Routine general medical examination at a health care facility 12/03/2024 Shortness of breath 12/03/2024 Status post total hip replacement, right 12/05/2024 Vector Remote Device 12/10/2024 Atrial fibrillation (HCC) Atrial fibrillation 10/12/2019 HTN (hypertension) Unspecified essential hypertension 10/12/2019 DDD (degenerative disc disease), cervical Degeneration of cervical intervertebral disc 10/12/2019 Acute febrile illness Fever, unspecified 10/12/2019 Elevated troponin Other abnormal blood chemistry 10/12/2019 NSTEMI (non-ST elevated myocardial infarction) (HCC) Acute myocardial infarction, subendocardial infarction, episode of care unspecified 10/12/2019 Chest pain Chest pain, unspecified 10/15/2019 NSTEMI (non-ST elevated myocardial infarction) ([facility]) Acute myocardial infarction, subendocardial infarction, episode of care unspecified 10/15/2019 Mitral valve disease Other and unspecified mitral valve diseases 10/15/2019 HTN (hypertension) Unspecified essential hypertension 10/15/2019 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 10/15/2019 Class 1 obesity due to excess calories without serious comorbidity with body mass index (BMI) of 33.0 to 33.9 in adult 10/15/2019 Atrial fibrillation (HCC) Atrial fibrillation 10/15/2019 Acute febrile illness Fever, unspecified 10/15/2019 Cardiogenic shock (HCC) Cardiogenic shock 10/15/2019 Ventricular fibrillation (HCC) Ventricular fibrillation 10/15/2019 Chest pain, unspecified type 09/30/2023 Chronic systolic heart failure (HCC) Chronic systolic heart failure 09/30/2023 HTN (hypertension) Unspecified essential hypertension 09/30/2023 Hx of mitral valve replacement Heart valve replaced by other means 09/30/2023 PAD (peripheral artery disease) Unspecified disorders of arteries and arterioles 09/30/2023 Paroxysmal atrial fibrillation (HCC) Atrial fibrillation 09/30/2023 S/P CABG x 2 Postsurgical aortocoronary bypass status 09/30/2023 single chamber ICD 09/30/2023 Chronic ulcer of leg, limited to breakdown of skin (HCC) 09/30/2023 Class 1 obesity due to excess calories without serious comorbidity with body mass index (BMI) of 33.0 to 33.9 in adult 09/30/2023 Leg edema Edema 09/30/2023 Scrotal edema Edema of male genital organs 09/30/2023 Acute on chronic HFrEF (heart failure with reduced ejection fraction) ([facility]) 09/30/2023 Osteoarthritis of one hip, right 12/27/2023 Goals Goal Patient Goal Type Associated Problems [...] Tobacco Free Lifestyle No Temi Isabel APRN Care Teams Security Risk Analyst Relationship Specialty Start Date End Date Yuli Caruso [facility] [address] [facility] [address] [place] [id number] PCP - General Family Medicine 10/05/23
--- OUTSIDE RECORDS SUMMARY | 2024-12-16 14:55 | XMS_ITS | Encounter Summary ---
Author Organization [place] [address] Care Team Providers Care Web Solutions Architect Name Role Phone Temi Isabel APRN Primary Care Provider [phone] Reena Benson RN Unavailable Unavailable Helder Yung MD Primary Care Provider [phone] Temi Isabel APRN Primary Care Provider [phone] Gaye Stern MD Primary Care Provi sonal Unavailable Rene Caruso MD Primary Care Provider [phone] Encounter Details Date Type Department Care Team (Latest Contact Info) Description 11/06/2019 Lab Requisition [facility] [place] [address] [place] [phone] Atherosclerotic heart disease of [place] coronary artery with unspecified angina pectoris Social History Tobacco Use Types Packs/Day Years [...] or suspected to have Coronavirus / COVID-19? Unable to assess 11/08/2019 9:38 AM EDT documented as of this encounter Functional Status * Is the person deaf or does he/she have serious difficulty hearing? Answer Date of Assessment Author No 04/09/2019 1:19 PM Seema Arellano RMA * Is the person blind or does he/she have serious difficulty seeing even when wearing glasses? Answer Date of Assessment Author No 04/09/2019 1:19 PM Seema Arellano RMA * Does this person have serious difficulty walking or climbing stairs? Answer Date of Assessment Author No 04/09/2019 1:19 PM Seema Arellano RMA * Does this person have difficulty dressing or bathing? Answer Date of Assessment Author No 04/09/2019 1:19 PM Seema Arellano RMA * Because of a physical, mental or emotional condition, does this person have difficulty doing errands alone such as visiting a doctor's office or shopping? Answer Date of Assessment Author No 04/09/2019 1:19 PM Seema Arellano RMA documented as of this encounter Mental Status * Because of a physical, mental or emotional condition, does this person have serious difficulty concentrating, remembering or making decisions? Answer Entry Date Author No 04/09/2019 1:19 PM Seema Arellano RMA documented in this encounter Plan of Treatment Upcoming Encounters Date Type Department Care Team (Late st Contact Info) Description 06/19/2025 1:45 PM EST Office [place] [address] Jona Chau MD [address] [facility] [place] [address] 11/07/2025 1:30 PM EDT Office Visit [facility] [address] [place] [address] [address] [place] [address] 11/07/2025 2:00 PM EDT Office Visit [facility] [address] [place] [address] [address] [place] [address] Funmi Aldrich APRN [address] [place] [id number] documented as of this encounter Goals [...] Procedure Name Priority Date/Time Associated Diagnosis Comments BASIC METABOLIC PANEL Routine 11/06/2019 1:30 PM EDT Atherosclerotic heart disease of [place] coronary artery with unspecified angina pectoris (HCC) documented in this encounter Results * (ABNORMAL) BASIC METABOLIC PANEL (11/06/2019 1:30 PM EDT) Sodium 136 136 - 145 mmol/L 11/06/2019 5:44 PM EDT [facility] Potassium 4.6 3.5 - 5.0 mmol/L 11/06/2019 5:44 PM EDT [facility] Chloride 95(L) 98 - 107 mmol/L 11/06/2019 5:44 PM EDT [facility] Total CO2 25 22 - 29 mmol/L 11/06/2019 5:44 PM EDT [facility] Anion Gap 16 7 - 16 mmol/L 11/06/2019 5:44 PM EDT [facility] Calcium 9.3 8.8 - 10.4 mg/dL 11/06/2019 5:44 PM EDT [facility] Glucose Lvl 95 82 - 100 mg/dL 11/06/2019 5:44 PM EDT [facility], [facility] BUN 14 8 - 23 mg/dL 11/06/2019 5:44 PM EDT [facility], [facility] Creatinine 1.14 0.67 - 1.30 mg/dL 11/06/2019 5:[address] [facility], [facility] GFR Afr Am 79 >=60 mL/min/1.7 3 m2 11/06/2019 5:44 PM EDT [facility] GFR Non Afr Am 69 >=60 mL/min/1.7 3 m2 11/06/2019 5:44 PM EDT [facility] Comment: This estimated GFR was calculated using CKD-EPI equation which is modified based on ethnicity for Non Americans and Americans. Both results are reported since it is not always possible to determine the patient's ethnicity. This equation should only be used for individuals 18 and older. It has not been validated for use with the elderly (>70 years), women, or in some racial or ethnic subgroups, such as Hispanics. The equation will be less accurate in people with differences in nutritional status or muscle mass. Blood VENOUS BLOOD / Unknown 11/06/2019 1:30 PM EDT 11/06/2019 4:45 PM EDT us Dejon Yung MD CHEMISTRY ORDERABLES Final Res ult [facility], [facility] [address] [facility], [place] [address] [address] documented in this encounter Visit Diagnoses Diagnosis Atherosclerotic heart disease of [place] coronary artery with unspecified angina pectoris documented in this encounter Care Teams Web Solutions Architect Relationship Specialty Start Date End Date Temi Isabel APRN [address] [place] [address] [place] [phone] PCP - General Nurse Practitioner-Family 02/27/1707/10 Helder Yung MD [address] [place] [address] [place] [id number] PCP - General Family Medicine 07/23/20 08/10/20 Temi Isabel APRN [address] [place] [address] [address] [place] [phone] PCP - General Nurse Practitioner-Family 08/11/2002/07 Gaye Stern MD [address] [place] [address] [place] [phone] PCP - General Family Medicine 04/26/22 10/03/23 Rene Caruso MD [facility] [address] [place] [address] PCP - General Family Medicine 10/05/23 Reena Benson, SHA [employer] Registered Nurse 10/31/19 12/31/19 documented as of this encounter
[2024-12-16 15:22] VITALS: BP 112/66; PULSE 62; RESP 14; O2SAT 92; BMI 35.2
--- NOTE | 2024-12-16 15:56 | EXP.PAIN.SOA ---
[facility] Disclaimer: The information contained in this section may have been updated after the patient was seen, as this information can be updated by other users. Medical History Situational depression Amos Graham is a 68-year-old male who is seen today for an evaluation for a spinal stimulator trial for chronic back pain. Notes: Mr. Graham indicates that he has difficulty sleeping, he is unable to enjoy activities that he used to enjoy, and he is unable to do work around his home that he used to be able to do and this has caused increased irritability, frustration, and anxiety. He states that he did not previously have depression or anxiety in any sort of chronic way, but his chronic pain has caused him to feel depressed and experience anxiety. His suicide risk assessment score is 0, there are no concerns at this time. He is very adamant that he has never had suicidal ideation. There is no noted family psychiatric history that he is aware of. He currently does drink a few beers, but nothing excessive. He states as a young man he did experiment with cocaine, stimulants, alcohol, and marijuana. He said has been years since he is partook in any of that except he will occasionally use marijuana to help with his pain and anxiety. Assessments completed by patient/scores: Clinical interview-mental health intake form completed by the patient. Pain inventory-the responses are consistent with pain explained during our session. Pain has caused a significant interference in this patient's life and he is unable to do things that he used to enjoy as well as accomplish tasks that he once did. Pain anxiety symptom scale-scored 28-this is consistent with mild pain anxiety. Depression scale-score is 13 which is consistent with mild mood disturbance. The patient indicated that this is directly related to his chronic pain. Health locus of control-score is 16-he has positive internal focus of control, making sound decision making, and he is able to manage his emotions appropriately. Based off the following information from the patient and the completed self inventories, patient is mentally stable to have an implantable neurostimulator implant based off of his responses from the self inventory. Peripheral vascular disease Paroxysmal atrial fibrillation Cellulitis of leg, right Bilateral lower extremity edema Diabetes mellitus screening Nonhealing ulcer of right lower leg Afib Hypertension Arthritis Surgical History Status post total hip replacement, right Hx of eye surgery Hx of carpal tunnel repair Hx of shoulder surgery Hx of left knee surgery Hx of mitral valve repair Hx of heart bypass surgery Family History Father Cancer multiple myeloma Sister Cancer Social History Smoking Status: Former smoker years smoked: 15 smoking status stop date: Quit 1991 second hand exposure: No alcohol intake: current alcohol intake frequency: holidays/special occasions only current occupational status: other Travel in the last 8 weeks?: None PM Subjective & Objective Subjective Subjective:: Patient is a pleasant 69-year-old male who presents today for follow-up of his lumbar epidural steroid injection L4-L5 on 11/19/2024. He does state that the injection did provide 75 to 80% relief and really did help his leg symptoms. He felt like this has been the best epidural he has had in a very long time. Patient does state overall he felt improvement while he was numb and that pretty much every day seem to do better and better. Patient does state however that he is having increased pain along his hips and feels like that pain is interfering with his ability perform activities of daily living such as cooking and cleaning. Patient does state that it is more severe when he is trying to lay on his sides or with palpation. Patient does state he would like to see something done for this pain. His Chris has been reviewed and is appropriate. Review of Systems: General: No recent weight changes, no fever, no sleep disturbances Respiratory: No cough, no shortness of air, no recurring pulmonary infections Cardiovascular/peripheral vascular: No chest pain, no palpitations, no edema, no shortness of breath Gastrointestinal: No new onset incontinence, normal bowel movements reported Genitourinary: No new onset incontinence Musculoskeletal: Bilateral hip pain Psychiatric: [Normal mood/affect] Neurological: [Denies weakness in extremities], [denies balance issues] Pain at rest (0-10 scale): 5 Objective Objective:: Physical Exam: General: Alert and oriented x3, no acute distress, pleasant and cooperative Lungs: Respirations even and unlabored, symmetrical chest expansion Eyes: PERRL Musculoskeletal: Flexion and extension of lumbar [spine] somewhat guarded secondary to pain, [antalgic gait noted] point tenderness along bilateral greater trochanteric bursa's Neurological: Speech clear, no gross sensory deficit Has patient had previous pain injection?: Yes Percent improvement in pain since last injection: 75 to 80% Conservative treatment options previously tried: Home exercise plan Length of treatment: Longer than 12 weeks Meds Home Medications and Allergies Home Medications ?Medication ?Instructions ?Recorded ?Confirmed ?Type apixaban 5 mg tablet (Eliquis) 5 mg PO DIRECTED Blood Thinner 04/11/23 12/16/24 History atorvastatin 40 mg tablet 40 mg PO DAILY Cholesterol 04/11/23 12/16/24 History losartan 25 mg tablet 25 mg PO DIRECTED BLOOD PRESSURE 04/11/23 12/16/24 History metoprolol succinate 100 mg 100 mg PO DAILY BLOOD PRESSURE 04/11/23 12/16/24 History tablet,extended release 24 hr torsemide 20 mg tablet 20 mg PO BID edema #60 tabs 09/05/23 12/16/24 Rx aspirin 81 mg tablet,delayed 81 mg PO DAILY 08/08/24 12/16/24 History release gabapentin 300 mg capsule 300 mg PO DAILY #30 caps 11/28/24 12/16/24 Rx mupirocin 2 % topical ointment 1 applic topical TID #15 grams 11/28/24 12/16/24 Rx silver sulfadiazine 1 % topical 1 applic topical DAILY cellulitis 11/28/24 12/16/24 Rx cream (Silvadene) #50 grams New Prescriptions to Start Prescriptions: Allergies Allergy/AdvReac Type Severity Reaction Status Date / Time codeine Allergy Other Verified 11/28/24 13:31 morphine AdvReac Mild Verified 11/28/24 13:31 Assessment and Plan *Assessment and plan (1) Greater trochanteric bursitis of both hips: Status: Acute Category: Medical Code(s): M70.61 - Trochanteric bursitis, right hip; M70.62 - Trochanteric bursitis, left hip Plan Patient has had significant improvement following his lumbar epidural and does not require any additional injection therapy at this location. Patient did however have very extreme point tenderness more prominent along the right greater trochanteric bursa as well as the left. I did discuss with the patient that I do believe he would benefit from bilateral greater trochanteric bursa injections. We, heat and ice, topicals, physical therapy and at home stretching and exercise for longer than 12 weeks that was physician guided. Patient has had chronic longstanding hip and low back pain for longer than 6 months. Patient will be scheduled for bilateral greater trochanteric bursa injections under fluoroscopy. Patient has been instructed to contact the clinic with any concerns before the next appointment. Dr. Mosqueda has reviewed this note and agrees with this plan of care. This note was dictated using voice recognition software and make contain errors or omissions. All injections are used with Lidocaine, Bupivacaine and dexamethasone. Occasionally urine drug screen is needed to verify patient's compliance with our office pain contract. This is ordered based off specific treatments related to chronic pain with the potential to abuse certain medications.
== END 2024-12-16 23:59 | disposition home or self-care (01) ==
LOC: SC.PAIN 14:43
PROVIDERS: PCP Family Medicine; Visit Provider Nurse Practitioner Family
DX: M70.61 Trochanteric bursitis, right hip (principal); M70.62 Trochanteric bursitis, left hip; Z98.890 Other specified postprocedural states; Z96.641 Presence of right artificial hip joint
CPT/HCPCS: 99212; G0463

== ENCOUNTER 2024-12-31 13:17 | Day surgery (SDC) | payer MEDICARE, SELFPAY ==
[2024-12-31 13:29] VITALS: BP 119/73; PULSE 63; RESP 18; O2SAT 94; BMI 36.9
[2024-12-31 13:51] VITALS: BP 142/78; PULSE 84; RESP 18; O2SAT 98
[2024-12-31] MEDS: DEXAMETHASONE 10MG/ML 1ML VIAL 10 MG (13:51)
[2024-12-31] MEDS: LIDOCAINE 1% 5ML PF VIAL 5 ML (13:51)
[2024-12-31] MEDS: BUPIVACAINE 0.25% 10ML INJ 25 MG IJ (13:51)
[2024-12-31 13:53] VITALS: BP 142/78; PULSE 84; RESP 18; O2SAT 98
[2024-12-31 14:00] VITALS: BP 134/73; PULSE 79; RESP 18; O2SAT 94
--- NOTE | 2024-12-31 14:09 | P.PCN_ITS ---
Procedure Date: 12/31/24 Time: 13:45 Anesthesiologist:: Josep Baugh CRNA Complications:: None Pre-procedure Diagnosis:: Bilateral trochanteric bursitis Post-procedure Diagnosis:: Same. Indications for Procedure:: Patient is a very pleasant 69-year-old male who comes our clinic today for b ilateral trochanteric bursa injections of cortisone local anesthetic. Patient describes bilateral lateral hip pain as constant, dull, aching. Right greater than left. He reports having difficulty lying on either side due to the pain. Difficulty with ambulation. He rates his pain 7/10. Procedure Details:: Procedure: Bilateral trochanteric bursa joint injections under fluoroscopy Informed consent was obtained and the risks and benefits of the procedure were explained to the patient.~ The patient was taken to the procedure room and noninvasive monitors were placed including a noninvasive blood pressure cuff and pulse oximeter.~ The patient was placed prone on the procedure table. Both hips were cleansed using Betadine as a cleansing solution. C-arm fluoroscopy was used to view the right trochanteric bursa joint.~ The skin and subcutaneous tissues were anesthetized using lidocaine 1.5% and a 25-gauge needle.~ After this, a 22- gauge spinal needle was inserted under fluoroscopic guidance into the inferior aspect of the right trochanteric bursa.~ Omnipaque dye was injected and good spread was seen throughout the joint.~ After this, approximately 5 mL of bupivacaine, 0.25% and dexamethasone 5 mg was incrementally injected into the right sacroiliac joint. We then moved to the left trochanteric bursa joint.~ The skin and subcutaneous tissues were anesthetized using lidocaine 1.5% and a 25-gauge needle.~ After this, a 22-gauge spinal needle was inserted under fluoroscopic guidance into the inferior aspect of the left trochanteric bursa joint.~ Omnipaque dye was injected and good spread was seen throughout the joint. After this, approximately 5 mL of bupivacaine, 0.25% and dexamethasone 5 mg was incrementally injected into the left sacroiliac joint.~ The patient tolerated the procedure well with no complications. The patient was observed in the Pain Clinic and then was discharged home neurologically intact. Plan and Disposition:: Patient was discharged without incident.
== END 2024-12-31 14:00 | disposition home or self-care (01) ==
PROVIDERS: PCP Family Medicine; Visit Provider Nurse Anesthetist, Certified Registered
DX: M70.62 Trochanteric bursitis, left hip (principal); M70.61 Trochanteric bursitis, right hip; N40.0 Benign prostatic hyperplasia without lower urinary tract symptoms; I10 Essential (primary) hypertension; I48.0 Paroxysmal atrial fibrillation; I73.9 Peripheral vascular disease, unspecified; Z87.891 Personal history of nicotine dependence; Z88.5 Allergy status to narcotic agent; Z79.82 Long term (current) use of aspirin; Z79.899 Other long term (current) drug therapy
CPT/HCPCS: 20610; 77002; J0665; J1100; J2003

== ENCOUNTER 2025-01-22 13:32 | Outpatient (POV) | payer MEDICARE, SELFPAY ==
--- OUTSIDE RECORDS SUMMARY | 2024-12-03 09:15 | XMS_ITS | Encounter Summary ---
Author Organization [place] [address] Care Team Providers Care Roadability Machine Operator Name Role Phone Rene Caruso MD Primary Care Provider [phone] [phone] Reason for Referral * Nuclear Medicine (Routine) - Authorized Specialty Diagnoses / Procedures Referred By Contac t Referred To Contact Orthopedic Surgery Diagnoses Status post total hip replacement, right Procedures NM BONE SCAN WHOLE BODY René Nicholas PA-C [address] [place] [phone] Phone: tel: fax: [place] [address] Phone: tel: fax: Referral ID Status Reason Start Date Expiration Date V isits Requested Visits Authorized [id number] Authorized 11/14/2024 11/14/2026 5 5 Reason for Visit * Nuclear Medicine (Routine) - Authorized Specialty Diagnoses / Procedures Referred By Contac t Referred To Contact Orthopedic Surgery Diagnoses Status post total hip replacement, right Procedures NM BONE SCAN WHOLE BODY René Nicholas PA-C [address] [place] [phone] Phone: tel: fax: [address] [address] Phone: tel: fax: Referral ID Status Reason Start Date Expiration Date V isits Requested Visits Authorized [id number] Authorized 11/14/2024 11/14/2026 5 5 Encounter Details Date Type Department Care Team (Latest Contact Info) Description 12/03/2024 9:15 AM EDT - 12/03/2024 11:59 PM EDT Hospital Encounter [facility] [address] [place] [address] René Nicholas PA-C [address] [place] [phone] Status post total hip replacement, right Discharge Disposition: Home or Self Care Social History Tobacco Use Types Packs/Day Years Used Date Smoking Tobacco: Former Cigarettes 1.5 15 0 07/10/1984 - 07/10/1999 Smokeless Tobacco: Never Alcohol Use Standard Drinks/Week Comments Yes 12 (1 standard drink = 0.6 oz pu re alcohol) couple beers daily [facility] Utilities Answer Date Recorded In the past 12 months has e [employer], gas, oil, or water [employer] threatened to shut off services in your home? No 10/01/2023 Overall Financial Resource Strain (CARDIA) Answe r Date Recorded How hard is it for you to pa y for the very basics like food, housing, medical care, and heating? Not hard at all 10/01/2023 PHQ-2 Answer Date Recorded PHQ-2 Total Score 0 10/01/2023 [facility] [place] of Occupat ional Health - Occupational Stress [...] 10/31/2019 Lack of Transportation (Non-Medical) No 10/31/2019 [facility] IP Transportation Answer D ate Recorded In [...] Penny Youngblood MA documented in this encounter Medications at Time of Discharge amiodarone (PACERONE) 200 mg Oral TabletIndications:VT (ventricular tachycardia) (HCC),Healthcare maintenance,Shortnes s of breath Take 1 Tablet by mouth daily. 11/07/2024 aspirin 81 mg Oral Tablet, Chewable Take 1 Tablet by mouth daily. 30 Tablet 11 10/04/2023 atorvastatin (LIPITOR) 40 mg Oral TabletIndications: HD (arteriosclerotic heart disease) TAKE 1 TABLET BY MOUTH EVERY DAY AT NIGHT 100 Tablet 2 10/03/2024 ELIQUIS 5 mg Oral Tablet TAKE 1 TABLET ORALLY TWICE DAILY 180 Tablet 1 12/05/2023 gabapentin (NEURONTIN) 300 mg Oral CapsuleIndications:L umbar foraminal stenosis,Lumbar spondylosis,Degenera tion of intervertebral disc of lumbar region with discogenic back pain,Lumbar pain,Myofascial pain Take 1 Capsule by mouth 2 times daily. 60 Capsule 4 05/24/2024 glucosamine-chondroi tin 500-400 mg Oral Tablet Take 1 Tablet by mouth 2 times daily. losartan (COZAAR) 50 mg Oral Tablet TAKE 1 AND 1/2 TABLETS DAILY BY MOUTH 150 Tablet 2 07/09/2024 metoprolol succinate ER (TOPROL-XL) 100 mg Oral Tablet Sustained Release 24 hrIndications:NSVT (nonsustained ventricular tachycardia) (HCC) Take 1.5 Tablets by mouth 2 times daily. 270 Tablet 3 11/25/2024 torsemide (DEMADEX) 20 mg Oral TabletIndications: HD (arteriosclerotic heart disease),SOB (shortness of breath) TAKE 1 TABLET BY MOUTH EVERY DAY 100 Tablet 2 07/05/2024 documented as of this encounter Discharge Disposition Disposition Code Departure Means Destination Home or Self Care documented in this encounter Plan of Treatment Upcoming Encounters Date Type Department Care Team (Late st Contact Info) Description 06/19/2025 1:45 PM EST Office Visit [facility] [address] [place] [address] Jona Chau MD [address] [place] [address] [place] [address] 11/07/2025 1:30 PM EDT Office Visit [facility] [address] [place] [phone] 11/07/2025 2:00 PM EDT Office Visit [facility] [address] [place] [phone] Funmi Aldrich APRN [address] [place] [address] documented as of this encounter Goals Goal [...] Procedure Name Priority Date/Time Associated Diagnosis Comments NM BONE SCAN WHOLE BODY Routine 12/03/2024 12:45 PM EDT Status post total hip replacement, right documented in this encounter Results * NM BONE SCAN [...] CLINICAL HISTORY: Z96.641-Presence of right artificial hip [id number]-CM. COMPARISON: No comparison bone scan imaging studies. PROCEDURE COMMENTS: 28.3 mCi of [id number]. Whole body bone scanning per protocol. FINDINGS: [...] PM CLINICAL HISTORY: Z96.641-Presence of right artificial lrimtlnl-YXA-09-CM. COMPARISON: No comparison bone scan imaging studies. PROCEDURE COMMENTS: 28.3 mCi of [id number]. Whole body bone scanningper protocol. FINDINGS: Prior [...] office of the ordering clinician. us René Nicholas PA-C [facility] NM ORDERABLES Final Res ult documented in this encounter Visit Diagnoses Diagnosis Status post total hip replacement, right documented in this encounter Additional Health Concerns Assessment Noted Time A fall risk assessment has been complete d for the patient 11/30/2023 2:14 PM EDT documented as of this encounter Care Teams Roadability Machine Operator Relationship Specialty Start Date End Date Rene Caruso MD [facility] [address] [place] [phone] PCP - General Family Medicine 10/05/23 documented as of this encounter
--- OUTSIDE RECORDS SUMMARY | 2024-12-03 09:15 | XMS_ITS | Encounter Summary ---
Author Organization [place] [address] Care Team Providers Care Janitorial Assistant Name Role Phone Rene Caruso MD Primary Care Provider [phone] Reason for Referral * Echo (Routine) - Closed Specialty Diagnoses / Procedures Referred By Sharri landrum Referred To Contact Radiology Diagnoses VT (ventricular tachycardia) (HCC) Healthcare maintenance Shortness of breath Procedures EC ECHOCARDIOGRAM COMPLETE W DOPPLER AND COLOR FLOW MAPPING Funmi Aldrich APRN [address] [place] [address] Phone: tel: fax: Referral ID Status Reason Start Date Expiration Date Visits Re quested Visits Authorized [id number] Closed 11/07/2024 11/07/2026 1 1 Reason for Visit * Echo (Routine) - Closed Specialty Diagnoses / Procedures Referred By Sharri landrum Referred To Contact Radiology Diagnoses VT (ventricular tachycardia) (HCC) Healthcare maintenance Shortness of breath Procedures EC ECHOCARDIOGRAM COMPLETE W DOPPLER AND COLOR FLOW MAPPING Funmi Aldrich APRN [address] [place] [address] Phone: tel: fax: Referral ID Status Reason Start Date Expiration Date Visits Re quested Visits Authorized [id number] Closed 11/07/2024 11/07/2026 1 1 Encounter Details Date Type Department Care Team (Latest Contact Info) Description 12/03/2024 9:15 AM EDT - 12/03/2024 11:59 PM EDT Hospital Encounter [facility] E[facility] [address] [place] [address] Funmi Aldrich, MARCELO [address] [place] [address] [place] (ventricular tachycardia) (HCC); Healthcare maintenance; Shortness of breath Discharge Disposition: Home or Self Care Social History Tobacco Use Types Packs/Day Years Used Date Smoking Tobacco: Former Cigarettes 1.5 15 0 07/10/1984 - 07/10/1999 Smokeless Tobacco: Never Alcohol Use Standard Drinks/Week Comments Yes 12 (1 standard drink = 0.6 oz pu re alcohol) couple beers daily [facility] Utilities Answer Date Recorded In the past 12 months has [employer], gas, oil, or water [employer] threatened to shut off services in your home? No 10/01/2023 Overall Financial Resource Strain (CARDIA) Answe r Date Recorded How hard is it for you to pa y for the very basics like food, housing, medical care, and heating? Not hard at all 10/01/2023 PHQ-2 Answer Date Recorded PHQ-2 Total Score 0 10/01/2023 [employer] [place] of Occupat ional Health - Occupational Stress [...] 10/31/2019 Lack of Transportation (Non-Medical) No 10/31/2019 [facility] IP Transportation Answer D ate Recorded [...] 1:45 PM EST Office Visit [facility] [address] [address] Jona Chau MD [address] [place] [address] 11/07/2025 1:30 PM EDT Office Visit [facility] [address] [place] [phone] 11/07/2025 2:00 PM EDT Office Visit [facility] [address] [place] [phone] Funmi Aldrich APRN [address] [place] [address] [phone] documented as of this encounter Goals Goal [...] Procedure Name Priority Date/Time Associated Diagnosis Comments EC ECHOCARDIOGRAM COMPLETE W DOPPLER AND COLOR FLOW MAPPING Routine 12/03/2024 2:12 PM EDT [place] (ventricular tachycardia) (HCC) Healthcare maintenance Shortness of breath documented in this encounter Results * EC ECHOCARDIOGRAM COMPLETE [...] documented in this encounter Visit Diagnoses Diagnosis VT (ventricular tachycardia) (HCC) Paroxysmal ventricular tachycardia Healthcare maintenance Routine general medical examination at a health care facility Shortness of breath documented in this encounter Additional Health Concerns Assessment Noted Time A fall risk assessment has been complete d for the patient 11/30/2023 2:14 PM EDT documented as of this encounter Care Teams Janitorial Assistant Relationship Specialty Start Date End Date Rene Caruso MD [address] [facility] [address] [place] [phone] PCP - General Family Medicine 10/05/23 documented as of this encounter
--- OUTSIDE RECORDS SUMMARY | 2024-12-03 09:15 | XMS_ITS | Encounter Summary ---
Author Organization [place] [address] Care Team Providers Care Foster Parent Name Role Phone Rene Caruso MD Primary Care Provider [phone] [phone] Reason for Visit * Nuclear Medicine (Routine) - Authorized Specialty Diagnoses / Procedures Referred By Sharri landrum Referred To Contact Orthopedic Surgery Diagnoses Status post total hip replacement, right Procedures NM BONE SCAN WHOLE BODY René Nicholas PA-C [address] [place] [phone] Phone: tel: fax: [address] [address] Phone: tel: fax: Referral ID Status Reason Start Date Expiration Date V isits Requested Visits Authorized [id number] Authorized 11/14/2024 11/14/2026 5 5 Encounter Details Date Type Department Care Team (Latest Contact Info) Description 12/03/2024 9:15 AM EDT - 12/03/2024 11:59 PM EDT Hospital Encounter [facility] [address] [facility] [place] [address] René Nicholas PA-C [address] [place] [phone] Discharge Disposition: Home or Self Care Social History Tobacco Use Types Packs/Day Years Used Date Smoking Tobacco: Former Cigarettes 1.5 15 0 07/10/1984 - 07/10/1999 Smokeless Tobacco: Never Alcohol Use Standard Drinks/Week Comments Yes 12 (1 standard drink = 0.6 oz pu re alcohol) couple beers daily [facility] Utilities Answer Date Recorded In the past [...] Date Recorded PHQ-2 Total Score 0 10/01/2023 [facility] [place] of Occupat ional Health - Occupational Stress [...] 10/31/2019 Lack of Transportation (Non-Medical) No 10/31/2019 [facility] IP Transportation Answer D ate Recorded In [...] 1:45 PM EST Office Visit [facility] [address] [address] Jona Chau MD [address] [place] [address] 11/07/2025 1:30 PM EDT Office Visit [facility] [address] [place] [phone] 11/07/2025 2:00 PM EDT Office Visit [facility] [address] [place] [phone] Funmi Aldrich APRN [address] [place] [address] [phone] documented as of this encounter Goals Goal [...] with compression therapy. Stay Tobacco Free Lifestyle Temi Cardenas APRN documented as of this encounter Procedures Procedure Name Priority Date/Time Associated Diagnosis Comments NM BONE SCAN WHOLE BODY Routine 12/03/2024 12:45 PM EDT Status post total hip replacement, right documented in this encounter Visit Diagnoses Not on filedocumented in this encounter Administered Medications Inactive Administered Medications - up to 1 most recent administrations Medication Order MAR Action Action Date Dose Rate Site Tc-99m medronate sodium (MDP) injection 28.3 millicurie 28.3 millicurie, Intravenous, ONCE PRN, 1 dose, Starting on Mon12/03/24 at 0932, Until Mon12/03/24 at 0932, Radiography/Imaging, Radiology Procedure, Administration dose must be within 10% of the ordered dose for radiopharmaceutical medications., Radiology Given 12/03/2024 9:32 AM EDT 28.3 millicuries Right Hand documented in this encounter Orders Medications Ordered That Dayne ht Not Have Been Administered Count Last Ordered Date First Ordered Date Tc-99m medronate sodium (MDP ) injection 28.3 millicurie 1 12/03/2024 documented in this encounter Additional Health Concerns Assessment Noted Time A fall risk assessment has been complete d for the patient 11/30/2023 2:14 PM EDT documented as of this encounter Care Teams Foster Parent Relationship Specialty Start Date End Date Rene Caruso MD [address] [place] [address] [address] [facility] [phone] PCP - General Family Medicine 10/05/23 documented as of this encounter
--- OUTSIDE RECORDS SUMMARY | 2024-12-05 14:00 | XMS_ITS | Encounter Summary ---
Author Organization [facility] Address [address] [place] [address] Care Team Providers Care Counseling Case Manager Name Role Phone Rene Caruso MD Primary Care Provider [phone] [phone] Reason for Visit * Reason Comments Follow-up Encounter Details Date Type Department Care Team (Late st Contact Info) Description 12/05/2024 2:00 PM EDT Office Visit [place] [phone] René Brown MD [address] [place] [phone] Status post total hip replacement, right (Primary Dx) Social History Tobacco Use Types Packs/Day Years Used Date Smoking Tobacco: Former Cigarettes 1.5 15 0 07/10/1984 - 07/10/1999 Smokeless Tobacco: Never Alcohol Use Standard Drinks/Week Comments Yes 12 (1 standard drink = 0.6 oz pu re alcohol) couple beers daily [facility] Utilities Answer Date Recorded In the past 12 months has [employer], gas, oil, or water [employer] threatened to shut off services in your home? No 10/01/2023 Overall Financial Resource Strain (CARDIA) Answe r Date Recorded How hard is it for you to pa y for the very basics like food, housing, medical care, and heating? Not hard at all 10/01/2023 PHQ-2 Answer Date Recorded PHQ-2 Total Score 0 10/01/2023 [facility] [place] of Occupat ional Health - Occupational Stress [...] Lack of Transportation (Non-Medical) No 10/31/2019 [facility] IP Transportation Answer D ate Recorded [...] in this encounter Progress Notes * René Brown MD - 12/05/2024 2:00 PM EDT Images from the original note were not included. Name: Amos Graham Age: 68 y.o. Sex : male : 1955 René Brown MD Date of Visit: 12/05/24 HISTORY: Amos Graham is a 68 y.o. male who presents with for a recheck of 1. Status post total hip replacement, right . He currently reports feeling worse. So far he has undergone treatment modalities of RICE, PT, NSAIDs, Surgery, and uses a cane for ambulation assistance. Patient is 11 months out from a total hip replacement. He states pain returned after surgery once his oxycodone prescription ran out and he was discharged from his chronic pain management program. Current treatment methods are insufficient andhe still experiences issues in the same area. Symptoms have not been alleviated to their liking andthey want to investigate other options when it comes to diagnosing their current condition. PHYSICAL EXAMINATION: General: Well-appearing, pleasant, appropriate affect, no distress, alert and oriented x3. Neuro: Normal neurosensory response to touch. Cardiovascular: No signs of edema. Lymphatic: No signs of lymphangitis. Skin: Intact, warm and dry. Musculoskeletal: Right Hip: Inspection: There is a well-healed surgical incision [...] pattern with the use of a cane. IMPRESSION: 1. Status post total hip replacement, right PLAN: Diagnoses and all orders for this visit: Status post total hip replacement, right Bone scan negative Discussed giving new referral to pain management - patient declined Discussed with patient that there are no good surgical treatment options at this time Patient is wanting to seek a second opinion at [facility] Follow up - As needed. Conservative Care/Observation X-RAYS: No Xrays done at this visit BONE SCAN: FINDINGS: Prior right shoulder arthroplasty. Degenerative degenerative [...] or radicular symptoms, consider follow-up MR imaging. IMPRESSION: No scintigraphic findings characteristic of right hip prosthetic loosening or stress reaction. Please see above detailed report. 12/05/24 documented in this encounter Plan of Treatment Upcoming Encounters Date Type Department Care Team (Late st Contact Info) Description 06/19/2025 1:45 PM EST Office Visit [facility] [address] Jona Chau MD [address] [place] [address] 11/07/2025 1:30 PM EDT Office Visit [facility] [address] [place] [address] [place] [phone] 11/07/2025 2:00 PM EDT Office Visit [facility] [address] [place] [phone] Funmi Aldrich APRN [address] [place] [address] documented as of this encounter Goals Goal Patient Goal Type Associated Problems Recent Progress Patient-Stated? Author Blood Pressure < 140/90 Blood Pressure 130/68(11/07 2:25 PM EDT) No Temi Isabel APRN Maintain a healthy diet, exercise regularly and maintain an ideal body weight General Temi Cardenas APRN Wound Healing General Not on track(2023 4:43 PM EDT) Clari Brumfield, RN Note: Wound Care Goals RIGHT LOWER [...] Isabel APRN documented as of this encounter Visit Diagnoses Diagnosis Status post total hip replacement, right- Primary documented in this encounter Additional Health Concerns Assessment Noted Time A fall risk assessment has been complete d for the patient 11/30/2023 2:14 PM EDT documented as of this encounter Care Teams Counseling Case Manager Relationship Specialty Start Date End Date Rene Caruso MD [address] [place] [address] [address] [place] [phone] PCP - General Family Medicine 10/05/23 documented as of this encounter
--- OUTSIDE RECORDS SUMMARY | 2025-01-22 13:36 | XMS_ITS | Encounter Summary ---
Author [place] [address] Care Team Providers Care Setup Operator Name Role Phone Rene Caruso MD Primary Care Provider [phone] Encounter Details Date Type Department Care Team (Latest Contact Info) Description 12/05/2024 Results Follow-Up [facility] [address] [place] [address] Funmi Aldrich APRN [address] [place], [place] [id number] EC ECHOCARDIOGRAM COMPLETE W DOPPLER AND COLOR FLOW MAPPING Social History Tobacco Use Types Packs/Day Years Used Date Smoking Tobacco: Former Cigarettes 1.5 15 0 07/10/1984 - 07/10/1999 Smokeless Tobacco: Never Alcohol Use Standard Drinks/Week Comments Yes 12 (1 standard drink = 0.6 oz pu re alcohol) couple beers daily [facility] Utilities Answer Date Recorded In the past 12 months has [employer], gas, oil, or water [employer] threatened to shut off services in your home? No 10/01/2023 Overall Financial Resource Strain (CARDIA) Answe r Date Recorded How hard is it for you to pa y for the very basics like food, housing, medical care, and heating? Not hard at all 10/01/2023 PHQ-2 Answer Date Recorded PHQ-2 Total Score 0 10/01/2023 [facility] of Occupat ional Health - Occupational Stress [...] 10/31/2019 Lack of Transportation (Non-Medical) No 10/31/2019 [facility] IP Transportation Answer D [...] PM EST Office Visit [facility] [address] [address] Jona Chau MD [address] [place] [address] 11/07/2025 1:30 PM EDT Office Visit [facility] [address] [place] [phone] 11/07/2025 2:00 PM EDT Office Visit [facility] [address] [place] [address] Funmi Aldrich APRN [address] [place] [address] [id number] documented as of this encounter Goals Goal [...] documented as of this encounter Care Teams Setup Operator Relationship Specialty Start Date End Date Rene Caruso MD [facility] [address] [place] [address] PCP - General Family Medicine 10/05/23 documented as of this encounter
--- OUTSIDE RECORDS SUMMARY | 2025-01-22 13:36 | XMS_ITS | Encounter Summary ---
Author Organization [place] [address] Care Team Providers Care Plisse Machine Operator Helper Name Role Phone Sushil Reid Mick Primary Care Provider [phone] Temi Isabel APRN Primary Care Provider [phone] Reena Benson RN Unavailable Unavailable Helder Yung MD Primary Care Provider [phone] Temi Isabel APRN Primary Care Provider [phone] Gaye Stern MD Primary Care Provi sonal Unavailable Rene Caruso MD Primary Care Provider [phone] Encounter Details Date Type Department Care Team (Late st Contact Info) Description 10/27/2009 Orders Only [facility] [place] [address] [place] [address] Scottie Elkins MD Social History [...] 1:45 PM EST [place] [address] Jona Chau MD [address] [place] [address] 11/07/2025 1:30 PM EDT Office Visit [facility] [address] [facility] [address] [place] [address] 11/07/2025 2:00 PM EDT Office Visit [facility] [address] [facility] [address] [place] [address] Funmi Aldrich APRN [address] [place] [address] documented as of this encounter [...] a practice prior to that practice using [facility] [employer] for Medical Records. Performing Provider: Scottie Elkins [...] documented as of this encounter Care Teams Plisse Machine Operator Helper Relationship Specialty Start Date End Date Sushil Reid [address] [facility] [address] [place] [id number] PCP - General 05/05/10 02/26/17 Temi Isabel APRN [employer] [place] [phone] PCP - General Nurse Practitioner-Family 02/27/1707/10 Helder Yung MD [address] [place] [address] [place] [id number] PCP - General Family Medicine 07/23/20 08/10/20 Temi Isabel APRN [address] [place] [address] [place] [id number] PCP - General Nurse Practitioner-Family 08/11/2002/07 Gaye Stern MD [address] [place] [address] [place] [id number] PCP - General Family Medicine 04/26/22 10/03/23 Rene Caruso MD [facility] [address] [place] [address] [place] [id number] PCP - General Family Medicine 10/05/23 Reena Benson, SHA Crucible Packer Registered Nurse 10/31/19 12/31/19 documented as of this encounter
--- OUTSIDE RECORDS SUMMARY | 2025-01-22 13:36 | XMS_ITS | Clinical Summary ---
Author Organization Healthcare Address [address] [place] [address] Care Team Providers Care Industrial Technician Name Role Phone Scottie Reid MD Primary Care Provider [phone] Immunizations Immunization Administration Dates Next Due Influenza, [...] Date Last Done Comments [facility]-Depression Screening 1956 [facility]-/Child/Adol SDOH Screenings 1956 [facility]- SDOH Screenings 1974 [facility]-Adult SDOH Screenings 1974 [facility]-DTaP,Tdap,and Td Vaccine s (1 - Tdap) 12/08/1975 CT Colonography 2001 Colonoscopy 2001 FIT-DNA 2001 FIT 2001 FOBT 2001 Sigmoidoscopy 2001 [facility]-Colorectal Cancer Screening 2001 [facility]-Pneumococcal Vaccine: 50 + Years (1 of 1 - PCV) 2006 [facility]-Zoster Vaccines (1 of 2) 2006 DSZ-[id number] Vaccine (1 - 20 24-25 season) 2024 [facility]-Influenza Vaccine (#1) 2025 07/07/2015 [facility]-RSV Vaccine: 60+ Years o [...] age to complete this topic Care Teams Industrial Technician Relationship Specialty Start Date End Date Scottie Reid MD [address] [place] [id number] PCP - General 11/20/20
--- OUTSIDE RECORDS SUMMARY | 2025-01-22 13:36 | XMS_ITS | Encounter Summary ---
Author Organization [place] [address] Care Team Providers Care Release Engineer Name Role Phone Temi Isabel APRN Primary Care Provider [phone] Reena Benson RN Unavailable Unavailable Helder Yung MD Primary Care Provider [phone] Temi Isabel APRN Primary Care Provider [phone] Gaye Stern MD Primary Care Provi sonal Unavailable Rene Caruso MD Primary Care Provider [phone] Encounter Details Date Type Department Care Team (Late st Contact Info) Description 10/22/2019 Orders Only [facility] [address] [facility] [address] [place] [address] Jorden Cotton MD [address] [place], [place] [id number] Social History Tobacco Use Types Packs/Day Years [...] 1:45 PM EST Office Visit [facility] [address] [address] Jona Chau MD [address] [place] [address] 11/07/2025 1:30 PM EDT Office Visit [facility] [address] [place] [phone] 11/07/2025 2:00 PM EDT Office Visit [facility] [address] [place] [phone] Funmi Aldrich APRN [address] [place], [place] [phone] documented as of this encounter Goals Goal [...] EDT) 10/22/2019 12:1 5 PM EDT Narrative [facility] - 10/22/2019 9:54 AM EDT [facility] [employer] transmission for POD #1 check. Karly Barrera, RN, BSN us Jorden Cotton MD [facility] CARDIAC CATH ORDERAB LES Final Result [facility] [address] [place] [address] documented in this encounter Visit Diagnoses Not on filedocumented in this encounter Care Teams Release Engineer Relationship Specialty Start Date End Date Temi Isabel APRN [address] [place] [address] [place] [phone] PCP - General Nurse Practitioner-Family 02/27/1707/10 Helder Yung MD [address] [place] [address] [place] [id number] PCP - General Family Medicine 07/23/20 08/10/20 Temi Isabel APRN [address] [place] [address] [place] [phone] PCP - General Nurse Practitioner-Family 08/11/2002/07 Gaye Stern MD [address] [place] [address] [place] [id number] PCP - General Family Medicine 04/26/22 10/03/23 Rene Caruso MD [address] [place] [phone] PCP - General Family Medicine 10/05/23 Reena Benson, RN Social Work Case Manager Registered Nurse 10/31/19 12/31/19 documented as of this encounter
--- OUTSIDE RECORDS SUMMARY | 2025-01-22 13:36 | XMS_ITS | Encounter Summary ---
Author Organization [place] [address] Care Team Providers Care Booking Officer Name Role Phone Rene Caruso MD Primary Care Provider [phone] Encounter Details Date Type Department Care Team (Late st Contact Info) Description 11/21/2024 Orders Only [facility] [address] [facility] [address] [place] [address] Jorden Cotton MD [address] [place], [place] [phone] Vector Remote Device Social History Tobacco Use Types Packs/Day Years Used Date Smoking Tobacco: Former Cigarettes 1.5 15 0 07/10/1984 - 07/10/1999 Smokeless Tobacco: Never Alcohol Use Standard Drinks/Week Comments Yes 12 (1 standard drink = 0.6 oz pu re alcohol) couple beers daily [facility] Utilities Answer Date Recorded In the past 12 months has [employer], gas, oil, or water [employer] threatened to shut off services in your home? No 10/01/2023 Overall Financial Resource Strain (CARDIA) Answe r Date Recorded How hard is it for you to pa y for the very basics like food, housing, medical care, and heating? Not hard at all 10/01/2023 PHQ-2 Answer Date Recorded PHQ-2 Total Score 0 10/01/2023 [facility] [place] of Occupat ional Health - Occupational Stress [...] 10/31/2019 Lack of Transportation (Non-Medical) No 10/31/2019 [facility] IP Transportation Answer D ate Recorded [...] 1:45 PM EST Office Visit [facility] [address] [address] Jona Chau MD [address] [place] [address] 11/07/2025 1:30 PM EDT Office Visit [facility] [address] [place] [phone] 11/07/2025 2:00 PM EDT Office Visit [facility] [address] [place] [address] Funmi Aldrich APRN [address] [place] [phone] documented as of this encounter Goals Goal [...] DEVICE (11/21/2024 12:00 AM EDT) 11/21/2024 Narrative [facility] - 11/21/2024 12:00 AM EDT Clinic Requested to assess histograms. No episodes. Patient on AC. Mode: VVIR. BROKE HANDLER: 99.3%. Normal device function. Device Advisory. Addendum: Histogram has improved greatly since programming changes /BE us Jorden Cotton MD [facility] CARDIAC CATH ORDERAB LES Final Result [facility] [address] [place] [address] documented in this encounter Visit Diagnoses Diagnosis Vector Remote Device documented in this encounter Additional Health Concerns Assessment Noted Time A fall risk assessment has been complete d for the patient 11/30/2023 2:14 PM EDT documented as of this encounter Care Teams Booking Officer Relationship Specialty Start Date End Date Rene Caruso MD [address] [place] [address] [place] [phone] PCP - General Family Medicine 10/05/23 documented as of this encounter
--- OUTSIDE RECORDS SUMMARY | 2025-01-22 13:36 | XMS_ITS | Encounter Summary ---
Author Organization [place] [address] Care Team Providers Care Vine Fruit Farming Supervisor Name Role Phone Jeanette Sushil Mick Primary Care Provider [phone] Temi Isabel APRN Primary Care Provider + [phone] Reena Benson RN Unavailable Unavailable Helder Yung MD Primary Care Provider [phone] Temi Isabel APRN Primary Care Provider + [phone] Gaye Stern MD Primary Care Provi sonal Unavailable Rene Caruso MD Primary Care Provider [phone] Encounter Details Date Type Department Care Team (Late st Contact Info) Description 11/06/2008 Orders Only [facility] [place] [address] [place] [address] Perico Sequeira MD [address] [place] [phone] Social History Tobacco Use Types Packs/Day [...] 1:45 PM EST Office Visit [facility] [place] [address] [place] [address] Jona Chau MD [address] [place] [address] 11/07/2025 1:30 PM EDT Office Visit [facility] [address] [facility] [address] [place] [address] 11/07/2025 2:00 PM EDT Office Visit [facility] [address] [facility] [address] [place] [address] Funmi Aldrich, MARCELO [address] [place], [place] [phone] documented as of this encounter Procedures Procedure [...] a practice prior to that practice using [facility] for Medical Records. Performing Provider: Perico [...] documented as of this encounter Care Teams Vine Fruit Farming Supervisor Relationship Specialty Start Date End Date Sushil Reid [address] [facility] [address] [place] [id number] PCP - General 05/05/10 02/26/17 Temi Isabel APRN [address] [facility] [place] [phone] PCP - General Nurse Practitioner-Family 02/27/1707/10 Helder Yung MD [address] [place] [address] [place] [id number] PCP - General Family Medicine 07/23/20 08/10/20 Temi Isabel APRN [address] [place] [address] [place] [phone] PCP - General Nurse Practitioner-[facility] 08/11/2002/07 Gaye Stern MD [address] [place] [address] [place] [id number] PCP - General Family Medicine 04/26/22 10/03/23 Rene Caruso MD [facility] [address] [place] [phone] PCP - General Family Medicine 10/05/23 Reena Benson, RN Manager Reporting Registered Nurse 10/31/19 12/31/19 documented as of this encounter
--- OUTSIDE RECORDS SUMMARY | 2025-01-22 13:36 | XMS_ITS | Clinical Summary ---
Author Organization [facility] Address [facility] [place] [address] Care Team Providers Care Centrifuge Operator Name Role Phone Pcp, Leeann Primary Care Provider [phone] Source Comments This information has been disclosed [...] therelease of HIV test results or diagnoses. [id number] Allergies Active Allergy Reactions Criticality Noted Date [...] 06/15/2021, 11/04/2020, 10/14/2020 Immunization: Influenza (MyC mckeon) (#1) 2025 10/15/2019, 07/07/2015 Immunization: RSV (Adult) (1 - 1-dose 75+ series) 12/08/2031 Immunization: Zoster Completed 09/24/2020, 07/24/19 21 Insurance BLUE MEDICARE ADVANTAGE Care Teams Centrifuge Operator Relationship Specialty Start Date End Date Pcp, No [address] [place], [place] [id number] PCP - General 12/25/23
--- OUTSIDE RECORDS SUMMARY | 2025-01-22 13:36 | XMS_ITS | Encounter Summary ---
Author Organization [place] [address] Care Team Providers Care Passenger Service Representative Name Role Phone Temi Isabel APRN Primary Care Provider [phone] [phone] Reena Benson RN Unavailable Unavailable Helder Yung MD Primary Care Provider [phone] Temi Isabel APRN Primary Care Provider [phone] [phone] Gaye Stern MD Primary Care Provi sonal Unavailable Rene Caruso MD Primary Care Provider +1 [phone] Encounter Details Date Type Department Care Team (Late st Contact Info) Description 10/27/2019 Orders Only [facility] [address] [facility] [address] [place] [address] Jorden Cotton MD [address] [place] [address] Social History Tobacco Use Types Packs/Day Years [...] 1:45 PM EST Office Visit [place] [address] Jona Chau MD [address] [place] [address] 11/07/2025 1:30 PM EDT Office Visit [facility] [address] [facility] [address] [place] [address] 11/07/2025 2:00 PM EDT Office Visit [facility] [address] [facility] [address] [place] [address] Funmi Aldrich APRN [address] [place] [address] documented as of this encounter [...] PM EDT) 10/27/2019 1:33 PM EDT Narrative [facility] - 10/28/2019 8:46 AM EDT [facility] notes Normal Device function, battery , leads function WNL, 1 AT/AF events 6 min. Alexandra Xiong RN us Jorden Cotton MD [facility] CARDI[facility] CATH ORDERAB LES Final Result [facility] 1 [place] [address] documented in this encounter Visit Diagnoses Not on filedocumented in this encounter Care Teams Passenger Service Representative Relationship Specialty Start Date End Date Temi Isabel APRN [address] [place] [address] PCP - General Nurse Practitioner-Family 02/27/1707/10 Helder Yung MD [address] [place] [address] [place] [address] PCP - General Family Medicine 07/23/20 08/10/20 Temi Isabel APRN [address] [place] [address] [place] [address] PCP - General Nurse Practitioner-Family 08/11/2002/07 Gaye Stern MD [address] [place] [address] [place] [address] PCP - General Family Medicine 04/26/22 10/03/23 Rene Caruso MD [facility] [address] [place] [address] PCP - General Family Medicine 10/05/23 Reena Benson, SHA Delivery Driver Registered Nurse 10/31/19 12/31/19 documented as of this encounter
--- OUTSIDE RECORDS SUMMARY | 2025-01-22 13:36 | XMS_ITS | Encounter Summary ---
Author Organization [place] [address] Care Team Providers Care Phone Triage Specialist Name Role Phone Rene Caruso MD Primary Care Provider [phone] [phone] Encounter Details Date Type Department Care Team (Late st Contact Info) Description 12/10/2024 Orders Only [facility] [address] [facility] [address] [place] [address] Jorden Cotton MD [address] [place], [place] [phone] Vector Remote Device Social History Tobacco Use Types Packs/Day Years Used Date Smoking Tobacco: Former Cigarettes 1.5 15 0 07/10/1984 - 07/10/1999 Smokeless Tobacco: Never Alcohol Use Standard Drinks/Week Comments Yes 12 (1 standard drink = 0.6 oz pu re alcohol) couple beers daily [facility] Utilities Answer Date Recorded In the past 12 months has [employer], gas, oil, or water [employer] threatened to shut off services in your home? No 10/01/2023 Overall Financial Resource Strain (CARDIA) Answe r Date Recorded How hard is it for you to pa y for the very basics like food, housing, medical care, and heating? Not hard at all 10/01/2023 PHQ-2 Answer Date Recorded PHQ-2 Total Score 0 10/01/2023 [facility] [place] of Occupat ional Health - Occupational Stress [...] 10/31/2019 Lack of Transportation (Non-Medical) No 10/31/2019 [facility] IP Transportation Answer D ate Recorded In [...] 1:45 PM EST Office Visit [facility] H[facility] [address] [address] Jona Chau MD [address] [place] [address] 11/07/2025 1:30 PM EDT Office Visit [facility] [address] [place] [address] 11/07/2025 2:00 PM EDT Office Visit [facility] [address] [place] [address] Funmi Aldrich APRN [address] [place] [phone] documented as of this encounter Goals Goal [...] Procedure Name Priority Date/Time Associated Diagnosis Comments UT REM INTERROG ICPMS <30 D PHYS/QHP Routine 12/10/2024 12:00 AM EDT Vector Remote Device documented in this encounter Results * VECTOR REMOTE HEART FAILURE DEVICE (12/10/2024 12:00 AM EDT) 12/10/2024 Narrative [facility] - 12/10/2024 12:00 AM EDT Stable trend. us Jorden Cotton MD [facility] CARDIAC CATH ORDERAB LES Final Result Performing Organization Address City/State[facility] Co de Phone Number [facility] 1 [place] [address] documented in this encounter Visit Diagnoses Diagnosis Vector Remote Device documented in this encounter Additional Health Concerns Assessment Noted Time A fall risk assessment has been complete d for the patient 11/30/2023 2:14 PM EDT documented as of this encounter Care Teams Phone Triage Specialist Relationship Specialty Start Date End Date Rene Caruso MD [address] [place] [address] [address] [facility] [place] [address] PCP - General Family Medicine 10/05/23 documented as of this encounter
--- OUTSIDE RECORDS SUMMARY | 2025-01-22 13:36 | XMS_ITS | Encounter Summary ---
Author Organization [facility] Address [address] [place] [address] Care Team Providers Care Paint Brush Maker Name Role Phone Rene Caruso MD Primary Care Provider [phone] [phone] Reason for Visit * Reason Onset Date Comments Other 11/25/2024 RF Gabapentin Encounter Details Date Type Department Care Team (Late st Contact Info) Description 11/25/2024 [place] [address] Jose Solorio MD [address] [place] [address] Other (RF Gabapentin) Social History Tobacco Use Types Packs/Day Years Used Date Smoking Tobacco: Former Cigarettes 1.5 15 0 07/10/1984 - 07/10/1999 Smokeless Tobacco: Never Alcohol Use Standard Drinks/Week Comments Yes 12 (1 standard drink = 0.6 oz pu re alcohol) couple beers daily [facility] Utilities Answer Date Recorded In the past 12 months has [employer], gas, oil, or water [employer] threatened to shut off services in your home? No 10/01/2023 Overall Financial Resource Strain (CARDIA) Answe r Date Recorded How hard is it for you to pa y for the very basics like food, housing, medical care, and heating? Not hard at all 10/01/2023 PHQ-2 Answer Date Recorded PHQ-2 Total Score 0 10/01/2023 [facility] [place] of Occupat ional Health - Occupational Stress [...] 10/31/2019 Lack of Transportation (Non-Medical) No 10/31/2019 [facility] IP Transportation Answer D ate Recorded In [...] the phone. * Telephone Encounter - Etta oGvea, Clerical Staff - 11/25/2024 12:52 PM EDTSummary: RF Request I called patient to schedule a f/p with Dr. Brown today. Upon talking with him, he asked me to send a message to the [employer] to request a refill of his Gabapentin. Please send to [facility] in [place]. If you need to contact patient to discuss, call him at his mobile number. documented in this encounter Plan of Treatment Upcoming Encounters Date Type Department Care Team (Late st Contact Info) Description 06/19/2025 1:45 PM EST Office Visit [facility] [address] [address] Jona Chau MD [address] [place] [address] [place] [address] 11/07/2025 1:30 PM EDT Office Visit [facility] [address] [place] [address] [address] [place] [address] 11/07/2025 2:00 PM EDT Office Visit [facility] [address] [facility] [address] [place] [address] Funmi Aldrich APRN [address] [place], [place] [phone] documented as of this encounter Goals Goal [...] documented as of this encounter Care Teams Paint Brush Maker Relationship Specialty Start Date End Date Rene Caruso MD [facility] [address] [place] [address] PCP - General Family Medicine 10/05/23 documented as of this encounter
--- OUTSIDE RECORDS SUMMARY | 2025-01-22 13:36 | XMS_ITS | Encounter Summary ---
Author Organization [place] [address] Care Team Providers Care Silk Screen Printing Racker Name Role Phone Rene Caruso MD Primary Care Provider [phone] [phone] Encounter Details Date Type Department Care Team (Late st Contact Info) Description 01/09/2025 Orders Only [facility] [address] [facility] [address] [place] [address] Jorden Cotton MD [address] [place], [place] [phone] Vector Remote Device Social History Tobacco Use Types Packs/Day Years Used Date Smoking Tobacco: Former Cigarettes 1.5 15 0 07/10/1984 - 07/10/1999 Smokeless Tobacco: Never Alcohol Use Standard Drinks/Week Comments Yes 12 (1 standard drink = 0.6 oz pu re alcohol) couple beers daily [facility] Utilities Answer Date Recorded In the past 12 months has [employer], gas, oil, or water [employer] threatened to shut off services in your home? No 10/01/2023 Overall Financial Resource Strain (CARDIA) Answe r Date Recorded How hard is it for you to pa y for the very basics like food, housing, medical care, and heating? Not hard at all 10/01/2023 PHQ-2 Answer Date Recorded PHQ-2 Total Score 0 10/01/2023 [facility] of Occupat ional Health - Occupational Stress [...] No 10/31/2019 [facility] IP Transportation Answer D ate Recorded [...] 1:45 PM EST Office Visit [facility] H&V [address] [address] Jona Chau MD [address] [place] [address] 11/07/2025 1:30 PM EDT Office Visit [facility] [address] [place] [address] 11/07/2025 2:00 PM EDT Office Visit [facility] [address] [place] [address] Funmi Aldrich APRN [address] [place] [phone] documented as of this encounter Goals Goal Patient Goal Type Associated Problems Recent Progress Patient-Stated? Author Blood Pressure < 140/90 Blood Pressure 130/68(11/07 2:25 PM EDT) No Temi Isabel APRN Maintain a healthy diet, exercise regularly and maintain an ideal body weight General No Tmei Isabel APRN Wound Healing General Not on [...] Procedure Name Priority Date/Time Associated Diagnosis Comments GA INTERROGATION EVAL REMOTE </90 D 07/11/OUTSIDE MACHINIST APPRENTICE LD DFB Routine 01/09/2025 12:00 AM EDT Vector Remote Device documented in this encounter Results * VECTOR REMOTE DEVICE (01/09/2025 12:00 AM EDT) 01/09/2025 Narrative [facility] - 01/09/2025 12:00 AM EDT No significant episodes. Atrial Episodes: 2. Longest atrial episode: . Patient on AC. Mode: VVIR. DEPUTY CHIEF MAGISTRATE: 98%. Normal device function. Device Advisory. us Jorden Cotton MD [facility] CARDI[facility] CATH ORDERAB LES Final Result [facility] 1 [place] [address] documented in this encounter Visit Diagnoses Diagnosis Vector Remote Device documented in this encounter Additional Health Concerns Assessment Noted Time A fall risk assessment has been complete d for the patient 11/30/2023 2:14 PM EDT documented as of this encounter Care Teams Silk Screen Printing Racker Relationship Specialty Start Date End Date Rene Caruso MD [address] [place] [address] [address] [place] [address] PCP - General Family Medicine 10/05/23 documented as of this encounter
--- OUTSIDE RECORDS SUMMARY | 2025-01-22 13:36 | XMS_ITS | Encounter Summary ---
Author Organization [place] [address] Care Team Providers Care Bus Company Manager Name Role Phone Gaye Stern MD Primary Care Provi Rene Sage MD Primary Care Provider [phone] [phone] Encounter Details Date Type Department Care Team (Late st Contact Info) Description 07/20/2021 Orders Only [facility]g [address] [facility] [address] [place] [address] Jorden Cotton MD [address] [place] [address] Social History Tobacco Use Types Packs/Day Years [...] 1:45 PM EST Office Visit SEP H&V [address] [address] Jona Chau MD [address] [place] [address] 11/07/2025 1:30 PM EDT Office Visit [facility] [address] [place] [address] [address] [place] [address] 11/07/2025 2:00 PM EDT Office Visit [facility] [address] [place] [address] [address] [place] [address] Funmi Aldrich APRN [address] [place] [address] documented as of this encounter Goals Goal [...] PM EST) 07/20/2021 9:26 PM EST Narrative [facility] - 07/23/2021 3:49 PM EST Per Vector: CLINIC REQUESTED: No significant episodes. NSVT: 4.AT/AF [place]: 68.9%. Known AF, patient on AC. SLIDE MAKER: 16.4%. Normal device function. 10.2 battery.- No sure who requested- no notes in Epic/paceart/ER or scheduled appointments. Alexandra Xiong RN us Jorden Cotton MD [facility] CARDIAC CATH ORDERAB LES Final Result [facility] 1 [place], [place] [address] documented in this encounter Visit Diagnoses Not on filedocumented in this encounter Care Teams Bus Company Manager Relationship Specialty Start Date End Date Gaye Stern MD PCP - General Family Medicine 04/26/22 10/03/23 Rene Caruso MD [address] [facility] [address] [facility] [place] [address] PCP - General Family Medicine 10/05/23 documented as of this encounter
--- OUTSIDE RECORDS SUMMARY | 2025-01-22 13:36 | XMS_ITS | Encounter Summary ---
Author Organization [facility] Address [address] [place] [address] Care Team Providers Care Sandblast Carver Name Role Phone Rene Caruso MD Primary Care Provider [phone] [phone] Reason for Visit * Reason Onset Date Comments Other 11/25/2024 schedule f/p Encounter Details Date Type Department Care Team (Late st Contact Info) Description 11/25/2024 Telephone [facility] [place] [phone] [place] [phone] René Brown MD [address] [place] [address] Other (schedule f/p) Social History Tobacco Use Types Packs/Day Years Used Date Smoking Tobacco: Former Cigarettes 1.5 15 0 07/10/1984 - 07/10/1999 Smokeless Tobacco: Never Alcohol Use Standard Drinks/Week Comments Yes 12 (1 standard drink = 0.6 oz pu re alcohol) couple beers daily [facility] Utilities Answer Date Recorded In the past 12 months has [employer], gas, oil, or water [employer] threatened to shut off services in your home? No 10/01/2023 Overall Financial Resource Strain (CARDIA) Answe r Date Recorded How hard is it for you to pa y for the very basics like food, housing, medical care, and heating? Not hard at all 10/01/2023 PHQ-2 Answer Date Recorded PHQ-2 Total Score 0 10/01/2023 [facility] [place] of Occupat ional Health - Occupational Stress [...] 10/31/2019 Lack of Transportation (Non-Medical) No 10/31/2019 [facility] IP Transportation Answer D ate Recorded [...] 1:45 PM EST Office Visit SEP H[facility]V [address] [address] Jona Chau MD [address] [place] [address] 11/07/2025 1:30 PM EDT Office Visit [facility] [address] [place] [address] 11/07/2025 2:00 PM EDT Office Visit [facility] [address] [place] [address] Funmi Aldrich APRN [address] [place] [phone] documented as of this encounter Goals Goal [...] documented as of this encounter Care Teams Sandblast Carver Relationship Specialty Start Date End Date Rene Caruso MD 12[address] [facility] [address] [place] [address] PCP - General Family Medicine 10/05/23 documented as of this encounter
--- OUTSIDE RECORDS SUMMARY | 2025-01-22 13:36 | XMS_ITS | Encounter Summary ---
Author Organization [place] [address] Care Team Providers Care Collar Shaper Operator Name Role Phone Rene Caruso MD Primary Care Provider +1 [phone] Encounter Details Date Type Department Care Team (Late st Contact Info) Description 01/10/2025 Orders Only [facility] Ar[facility]tr Edg [address] [facility] [address] [place] [address] Jorden Cotton MD [address] [place], [place] [phone] Vector Remote Device Social History Tobacco Use Types Packs/Day Years Used Date Smoking Tobacco: Former Cigarettes 1.5 15 0 07/10/1984 - 07/10/1999 Smokeless Tobacco: Never Alcohol Use Standard Drinks/Week Comments Yes 12 (1 standard drink = 0.6 oz pu re alcohol) couple beers daily [facility] Utilities Answer Date Recorded In the past 12 months has [employer], gas, oil, or water [employer] threatened to shut off services in your home? No 10/01/2023 Overall Financial Resource Strain (CARDIA) Answe r Date Recorded How hard is it for you to pa y for the very basics like food, housing, medical care, and heating? Not hard at all 10/01/2023 PHQ-2 Answer Date Recorded PHQ-2 Total Score 0 10/01/2023 [facility] [place] of Occupat ional Health - Occupational Stress [...] 10/31/2019 Lack of Transportation (Non-Medical) No 10/31/2019 [facility] IP Transportation Answer D ate Recorded [...] 1:45 PM EST Office Visit SEP H&V [address] [address] Jona Chau MD [address] [place] [address] 11/07/2025 1:30 PM EDT Office Visit [facility] [address] [place] [address] 11/07/2025 2:00 PM EDT Office Visit [facility] [address] [place] [address] Funmi Aldrich APRN [address] [place] [phone] documented as of this encounter Goals Goal [...] Procedure Name Priority Date/Time Associated Diagnosis Comments HI REM INTERROG ICPMS <30 D PHYS/QHP Routine 01/10/2025 12:00 AM EDT Vector Remote Device documented in this encounter Results * VECTOR REMOTE HEART FAILURE DEVICE (01/10/2025 12:00 AM EDT) 01/10/[address] [facility] - 01/10/2025 12:00 AM EDT Stable trend. us Jorden Cotton MD [facility] CARDIAC CATH ORDERAB LES Final Result Performing Organization Address City/State/[facility] Co de Phone Number [facility] 1 [place] [address] documented in this encounter Visit Diagnoses Diagnosis Vector Remote Device documented in this encounter Additional Health Concerns Assessment Noted Time A fall risk assessment has been complete d for the patient 11/30/2023 2:14 PM EDT documented as of this encounter Care Teams Collar Shaper Operator Relationship Specialty Start Date End Date Rene Caruso MD [address] [place] [address] [address] [place] [address] PCP - General Family Medicine 10/05/23 documented as of this encounter
--- OUTSIDE RECORDS SUMMARY | 2025-01-22 13:36 | XMS_ITS | Encounter Summary ---
Author Organization [place] [address] Care Team Providers Care Fire Management Officer Name Role Phone Temi Isabel MARCELO Primary Care Provider [phone] [phone] Gaye Stern MD Primary Care Provi Rene Sage MD Primary Care Provider [phone] -[phone] Encounter Details Date Type Department Care Team (Late st Contact Info) Description 02/08/2021 Orders Only [facility] Edg [address] [facility] [address] [place] [address] Jorden Cotton MD [address] [place], [place] [phone] Social History Tobacco Use Types Packs/Day Years [...] 1:45 PM EST Office Visit [facility] [place] [address] [place] [address] Jona Chau MD [address] [place] [address] 11/07/2025 1:30 PM EDT Office Visit [facility] [address] [facility] [address] [place] [address] 11/07/2025 2:00 PM EDT Office Visit [facility] [address] [facility] [address] [place] [address] Funmi Aldrich APRN [address] [place] [address] documented as of this encounter [...] v/uMark Mobley RN/CDS. us Jorden Cotton MD [facility] CARDIAC CATH ORDERAB LES Final Result [facility] 1 [place] [address] documented in this encounter Visit Diagnoses Not on filedocumented in this encounter Care Teams Fire Management Officer Relationship Specialty Start Date End Date Temi Isabel APRN [address] [facility] [place] [phone] PCP - General Nurse Practitioner-Family 08/11/2002/07 Gaye Stern MD [address] [place] [address] PCP - General Family Medicine 04/26/22 10/03/23 Rene Caruso MD [facility]ending [facility] to [facility] [address] [place] [phone] PCP - General Family Medicine 10/05/23 documented as of this encounter
--- OUTSIDE RECORDS SUMMARY | 2025-01-22 13:36 | XMS_ITS | Encounter Summary ---
Author Organization [place] [address] Care Team Providers Care Farmworker Poultry Name Role Phone Rene Caruso MD Primary Care Provider [phone] Reason for Visit * Reason Onset Date Comments Medication Refill 11/25/2024 metoprolol suc cinate ER (TOPROL-XL) 100 mg Oral Tablet Sustained Release 24 hr Encounter Details Date Type Department Care Team (Late st Contact Info) Description 11/25/2024 Telephone [facility] [address] [facility] [address] [place] [address] Jorden Cotton MD [address] [place], [place] [id number] Medication Refill (metoprolol succinate ER (TOPROL-XL) 100 mg Oral Tablet Sustained Release 24 hr) Social History Tobacco Use Types Packs/Day Years Used Date Smoking Tobacco: Former Cigarettes 1.5 15 0 07/10/1984 - 07/10/1999 Smokeless Tobacco: Never Alcohol Use Standard Drinks/Week Comments Yes 12 (1 standard drink = 0.6 oz pu re alcohol) couple beers daily [facility] Utilities Answer Date Recorded In the past 12 months has [employer] electric, gas, oil, or water company threatened to shut off services in your home? No 10/01/2023 Overall Financial Resource Strain (CARDIA) Answe r Date Recorded How hard is it for you to pa y for the very basics like food, housing, medical care, and heating? Not hard at all 10/01/2023 PHQ-2 Answer Date Recorded PHQ-2 Total Score 0 10/01/2023 [facility] [place] [facility] - Occupational Stress [...] Lack of Transportation (Non-Medical) No 10/31/2019 [facility] IP Transportation Answer D ate [...] Received a refill request via fax from [facility] pharmacy for: metoprolol succinate ER (TOPROL-XL) 100 mg Oral Tablet Sustained Release 24 hr 3 ordered Take 1.5 Tablets by mouth 2 times daily. Qty 270 Thank you documented in this encounter Plan of Treatment Upcoming Encounters Date Type Department Care Team (Late st Contact Info) Description 06/19/2025 1:45 PM EST Office [place] [address] Jona Chau MD [address] [place] [address] 11/07/2025 1:30 PM EDT Office Visit [facility] [address] [place] [address] [address] [place] [address] 11/07/2025 2:00 PM EDT Office Visit [facility] [address] [facility] [address] [place] [address] Funmi Aldrich APRN [address] [place] [address] documented as of this encounter [...] documented as of this encounter Care Teams Farmworker Poultry Relationship Specialty Start Date End Date Rene Caruso MD [address] [place] [address] [address] [place] [address] PCP - General Family Medicine 10/05/23 documented as of this encounter
--- OUTSIDE RECORDS SUMMARY | 2025-01-22 13:37 | XMS_ITS | Clinical Summary ---
Author Organization [facility] Address [address] [place] [address] Care Team Providers Care Vocational Examiner Name Role Phone Alvarez Jaimes MD Unavailable [phone] Scottie Reid MD Primary Care Provider [phone] Allergies Active Allergy Reactions Criticality Noted Date [...] 2006 Fall Risk Assessment 2021 COVID-19 Vaccine (1 - 2023- season) 2024 Advance Care Planning 07/10/2024 Depression Screening 07/10/2024 Influenza Vaccination (#1) 2025 07/07/2015 RSV Vaccines (1 - 1-dose 75+ series) 12/08/2031 Medical Devices Implanted Type Area Mill Machinist Device Identifier Shelf Expiration Date Model / Serial / Lot Cervical Tissue 4.75 X 6.22mm Implanted:Qty : 1 on 01/24/2008 at [facility] Spine Cervical * [facility] [facility] [id number] / -[id number] Cervical Tissue 4.75 X 6.22mm Implanted:Qty : 1 on 01/24/2008 at [facility] Spine Cervical * [facility] [id number] / -[id number] Cervical Tissue 4.75 X 6.22mm Implanted:Qty : 1 on 01/24/2008 at [facility] Spine Cervical * [facility] [id number] / -[id number] Plate 48mm Implanted:Qty : 1 on 01/24/2008 at [facility] Spine Cervical * [employer] [id number] / / Screw 14mm Implanted:Qty : 8 on 01/24/2008 at [facility] Spine Lumbar * [employer] [id number] / / [place]+ Acp, 3 Level, 48mm - S1 Implanted:Qty : 1 on 08/06/2009 at [facility] N/A: Spine Cervical * USE JJ [employer] [id number] / / Screw Oversize 14mm - S1 Implanted:Qty : 8 on 08/06/2009 at [facility] N/A: Spine Cervical * USE J DEPU [id number] / / Insurance [employer] MEDICARE Advance Directives For more information, please contact: [phone] * Full Code (Latest Code Status on File) Date Activated Date Inactivated Comments 05/20/2022 2:32 PM Care Teams Vocational Examiner Relationship Specialty Start Date End Date Scottie Reid MD [address] [place] [id number] PCP - General Family Medicine 05/13/22 Alvarez Jaimes MD [address] [place] [address] Orthopedic Surgery 05/10/22
--- OUTSIDE RECORDS SUMMARY | 2025-01-22 13:38 | XMS_ITS | Clinical Summary ---
Author Organization [facility] (Former[facility] Address [address] [place] [address] Phone Care Team Providers Care Vehicle Assembler Name Role Phone Ya Peralta MD [phone] Conditions or Problems Problem Name Problem Code Onset Date Status Entry Date Provider Comment Standard Description Annotate SPONDYLOSIS, LUMBAR 650339520 (SNOMED CT) 03/08 Active 03/08 Ya Peralta MD Lumbosacral spondylosis LUMBAR RADICULOPATHY 444229116 (SNOMED CT) 03/03 Active 03/03 Teri Brito MA Lumbar radiculopathy SPINAL STENOSIS 65620319 (SNOMED CT) 03/03 Active 03/03 Teri Brito MA Spinal stenosis Medications Medication Instructions Start Date Stop Date Generic Name [facility] Provider ELIQUIS 5 MG TABS apixaban 02139337916 L joan Brito MA METOPROLOL SUCCINATE ER 100 MG [id number] metoprolol succinate 59410484238 Teri Brito MA LOSARTAN POTASSIUM 25 MG TABS losartan 64717381569 Teri Brito MA OXYCODONE HCL 5 MG TABS oxycodone 56548701479 Teri Brito MA TORSEMIDE 20 MG TABS torsemide 58661978550 Teri Brito MA METHOCARBAMOL 500 MG TABS methocarbamol 65843752967 Teri Brito MA ATORVASTATIN CALCIUM 40 MG TABS atorvastatin 66490128103 Teri Brito MA Medications Administered No information available. Allergies, Adverse Reactions, Alerts Allergy Name Reaction Description Start Date Severity Statu s Provider CODINE Critical Teri cedeno MA Results No information available. Plan of Care Type Date Detail Pending order X-Ray Lumbar Fle xion/Extension Procedures No information available. Vital Signs Date Name Value Unit Description BMI (Body Mass Index) 36.26 kg/m2 Bod y Mass Index (Ratio) Height 71 [in_us] height E&M Weight Measured 260 [lb_av] weight E& M Weight Measured 260 [lb_av] weight E& M Immunizations No information available. Advance Directives No information available.
--- OUTSIDE RECORDS SUMMARY | 2025-01-22 13:39 | XMS_ITS | Encounter Summary ---
Author Organization [place] [address] Care Team Providers Care Staffing Consultant Name Role Phone Temi Isabel APRN Primary Care Provider [phone] Reena Benson RN Unavailable Unavailable Helder Yung MD Primary Care Provider [phone] Temi Isabel APRN Primary Care Provider [phone] Gaye Stern MD Primary Care Provi sonal Unavailable Rene Caruso MD Primary Care Provider [phone] Encounter Details Date Type Department Care Team (Latest Contact Info) Description 11/06/2019 Lab Requisition [facility] [place] [address] [place] [phone] Atherosclerotic heart disease of [place] coronary artery with unspecified angina pectoris Social [...] 1:45 PM EST [place] [address] Jona Chau MD [address] [facility] [place] [address] 11/07/2025 1:30 PM EDT Office Visit [facility] [address] [place] [address] [address] [place] [address] 11/07/2025 2:00 PM EDT Office Visit [facility] [address] [place] [address] [address] [place] [address] Funmi Aldrich APRN [address] [place] [address] documented as of this encounter Goals [...] 1:30 PM EDT 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) [...] mg/dL 11/06/2019 5:44 PM EDT [facility], [facility] Glucose Lvl 95 82 - 100 mg/dL 11/06/2019 5:44 PM EDT [facility], [facility] BUN 14 8 - 23 mg/dL 11/06/2019 5:44 PM EDT [facility], [facility] Creatinine 1.14 0.67 - 1.30 mg/dL 11/06/2019 5:44 PM EDT [facility], [facility] GFR Afr Am 79 >=60 mL/min/1.7 3 m2 11/06/2019 5:44 PM EDT [facility] GFR Non Afr Am 69 >=60 mL/min/1.7 3 m2 11/06/2019 5:44 PM EDT [facility] Comment: This estimated GFR was calculated [...] CHEMISTRY ORDERABLES Final Res ult [facility], [facility] [address] [facility], [place] [address] [place] [address] [address] documented in this encounter Visit Diagnoses Diagnosis Atherosclerotic heart disease of [place] coronary artery with unspecified angina pectoris documented in this encounter Care Teams Staffing Consultant Relationship Specialty Start Date End Date Temi Isabel APRN [address] [place] [address] [place] [phone] PCP - General Nurse Practitioner-Family 02/27/1707/10 Helder Yung MD [address] [place] [address] [place] [address] PCP - General Family Medicine 07/23/20 08/10/20 Temi Isabel APRN [address] [place] [address] [address] [place] [phone] PCP - General Nurse Practitioner-Family 08/11/2002/07 Gaye Stern MD [address] [place] [address] [place] [address] PCP - General Family Medicine 04/26/22 10/03/23 Rene Caruso MD [facility] [address] [place] [address] PCP - General Family Medicine 10/05/23 Reena Benson, SHA Cell Room Supervisor Registered Nurse 10/31/19 12/31/19 documented as of this encounter
--- OUTSIDE RECORDS SUMMARY | 2025-01-22 13:39 | XMS_ITS | Continuity of Care Document ---
Author Organization [facility] BUSINESS OFFICE Address [facility]0 [facility] [address] [place] [address] Care Team Providers Care Fighter Pilot Name Role Phone Yuli Caruso MD Primary Care Provider [phone] Encounters Date Type Department Care Team Description 01/10/2025 Orders Only [facility] [address] [place] [address] [place] [phone] Radha Cotton MD Vector Remote Device 01/09/2025 Orders Only [facility] [address] [place] [address] [place] [phone] Radha Cotton MD Vector Remote Device 12/10/2024 Orders Only [facility] [address] [place] [address] [place] [phone] Radha Cotton MD Vector Remote Device 12/05/2024 Results Follow-Up [facility] [address] [facility] [address] [place] [phone] Funmi Aldrich APRN EC ECHOCARDIOGRAM COMPLETE W DOPPLER AND COLOR FLOW MAPPING 12/05/2024 2:00 PM EDT Office Visit [facility] [address] [place] [phone] René Brown MD Status post total hip replacement, right (Primary Dx) 12/03/2024 9:15 AM EDT - 12/03/2024 11:59 PM EDT Hospital Encounter [facility] [address] [place] [address] René Nicholas PA-C Status post total hip replacement, right Discharge Disposition: Home or Self Care 12/03/2024 9:15 AM EDT - 12/03/2024 11:59 PM EDT Hospital Encounter [facility] [address] [place] [address] René Nicholas PA-C Discharge Disposition: Home or Self Care 12/03/2024 9:15 AM EDT - 12/03/2024 11:59 PM EDT Hospital Encounter [facility] ECHO [address] [place] [address] Funmi Aldrich APRN [place] (ventricular tachycardia) ([facility]); Healthcare maintenance; Shortness of breath Discharge Disposition: Home or Self Care 11/25/2024 Telephone [facility] [address] [place] [address] Jose Solorio MD Other (RF Gabapentin) 11/25/2024 Telephone [email or web address] [address] [place] [address] René Brown MD Other (schedule f/p) 11/25/2024 Telephone [facility] [address] [place] [address] [address] [place] [address] Radha Cotton MD Medication Refill (metoprolol succinate ER (TOPROL-XL) 100 mg Oral Tablet Sustained Release 24 hr) 11/21/2024 Orders Only [facility] [address] [place] [address] [address] [place] [address] Radha Cotton MD Vector Remote Device 11/14/2024 1:30 PM EDT Ancillary Procedure [address] [address] René Nicholas PA-C Status post total hip replacement, right 11/14/2024 1:15 PM EDT Office Visit [address] [address] René Nicholas PA-C Status post total hip replacement, right (Primary Dx) 11/11/2024 Telephone Structural Hrt/Valve [address] [place] [address] [address] [place] [address] Jacque Ahn, SHA Other 11/07/2024 Orders Only [facility] [address] [place] [address] [address] [place] [phone] Radha Cotton MD Vector Remote Device 11/07/2024 2:30 PM EDT Office Visit [facility] [address] [place] [address] [address] [place] [phone] Funmi Aldrich APRN Healthcare maintenance (Primary Dx); VT (ventricular tachycardia) ([facility]); Shortness of breath 11/07/2024 2:00 PM EDT Office Visit [facility] [address] [place] [address] [address] [place] [phone] Dejon Mcqueen MA Ischemic cardiomyopathy (Primary Dx); Implantable defibrillator reprogramming/check; ICD (implantable cardioverter-defibril lator), single, in situ 10/23/2024 [place]phone [place] [address] Jona Chau MD Cardiology Clearance 10/23/2024 [place] [address] Jona hCau MD Cardiology Clearance (([facility] Pain Managment)) 10/18/2024 Telephone [facility] [address] [phone] Funmi Aldrich APRN Reschedule 10/07/2024 Orders Only [facility] [address] [place] [address] [place] [phone] Radha Cotton MD Vector Remote Device 10/06/2024 Orders Only [facility] [address] [place] [phone] Radha Cotton MD Vector Remote Device 10/02/2024 Refill [facility] [address] [phone] Jona Chau MD Medication Refill 09/24/2024 Telephone [facility] [place] [address] [place] [address] Michela Castañeda, RT Follow-up 09/23/2024 Travel 09/23/2024 12:00 PM EDT Anesthesia Event [facility] [address] [place] [phone] Jose Amador, Howard Nichole, 09/23/2024 11:30 AM EDT - 09/23/2024 11:59 PM EDT Hospital Encounter [facility] [address] [place] [id number] Dejon Capone MD Costantini, Oren M, Margarita Hyatt, DAMIAN Non-pressure chronic ulcer of right lower leg, unspecified ulcer stage (HCC); Coronary artery disease due to calcified coronary lesion Discharge Disposition: Home or Self Care 09/19/2024 12:20 PM EDT - 09/19/2024 11:59 PM EDT Hospital Encounter [facility] [place] [id number] PAD (peripheral artery disease); Coronary artery disease due to calcified coronary lesion Discharge Disposition: Home or Self Care 09/19/2024 11:15 AM EDT Office Visit [facility] [place] [address] [place] [address] Jyothi Decker PA-C PAD (peripheral artery disease) (Primary Dx) 09/11/2024 Orders Only [facility] [place] [address] [place] [address] Michela Castañeda, RT PAD (peripheral artery disease) (Primary Dx); Coronary artery disease due to calcified coronary lesion 09/10/2024 Telephone [facility] [place] [address] [place], [place] [phone] Jona Chau MD Cardiology Clearance 09/05/2024 Orders Only [facility] [address] [facility] [address] [place] [address] Radha Cotton MD Vector Remote Device 08/23/2024 Telephone [facility] [place] [address] [place] [address] Michela Castañeda, RT Confirmation 08/18/2024 Refill [facility] [place] [address] [place] [phone] Jona Chau MD Medication Refill 08/07/2024 Telephone [facility] [place] [address] [place] [address] Michela Castañeda, RT Schedule Appointment 08/05/2024 Orders Only [facility] [address] [facility] [address] [place] [address] Rahda Cotton MD Vector Remote Device 08/01/2024 2:15 PM EST Office Visit [facility] [address] [address] Alvarez Alejo MD Lumbar spondylosis (Primary Dx) 07/22/2024 Telephone [facility] [place] [address] [place] [address] Michela Castañeda, RT Schedule Appointment 07/19/2024 10:30 AM EST - 07/19/2024 11:59 PM EST Hospital Encounter [facility] [place] [address] Jose Solorio MD Lumbar foraminal stenosis; Lumbar spondylosis; Degeneration of intervertebral disc of lumbar region with discogenic back pain; Lumbar pain; Myofascial pain; SI (sacroiliac) joint dysfunction Discharge Disposition: Home or Self Care 07/18/2024 [facility] [address] [employer] [place] [phone] Na Mathis, [facility] 07/17/2024 11:00 AM EST [facility] [address] [facility] [address] [place] [address] Alvarez Alejo MD Lumbar spondylosis (Primary Dx) 07/16/2024 Orders Only [facility] [place] [address] [place] [address] Michela Castañeda, RT Non-pressure chronic ulcer of right lower leg, unspecified ulcer stage (HCC) (Primary Dx) 07/09/2024 2:30 PM EST Ancillary Procedure [facility] [address] [place] [address] René Nicholas, PA-C Status post total hip replacement, right 07/09/2024 2:15 PM EST Office Visit [facility] [address] [place] [address] René Nicholas, PA-C Status post total hip replacement, right (Primary Dx) 07/06/2024 Ref[place] [address] Vernell Bejarano APRN Medication Refill 07/05/2024 Orders Only [facility] [address] [place], [place] [phone] Radha Cotton MD Vector Remote Device 07/05/2024 Telephone [facility] [address] [place] [phone] Temi Timmons MA Results 07/04/2024 Orders Only [facility] [address] [place] [phone] Radha Cotton MD Vector Remote Device 07/02/2024 [place] [address] Jona Chau MD Medication Refill 06/27/2024 8:45 AM EST [facility] [address] [place] [address] Alvarez Alejo MD Lumbar spondylosis (Primary Dx); Lumbar foraminal stenosis; Degeneration of intervertebral disc of lumbar region with discogenic back pain 06/26/2024 Orders Only [facility] [address] [facility] [address] [place] [address] Ceci Simms MA Lumbar foraminal stenosis (Primary Dx); Lumbar spondylosis; Degeneration of intervertebral disc of lumbar region with discogenic back pain; Lumbar pain; Myofascial pain; SI (sacroiliac) joint dysfunction 06/26/2024 6:44 PM EST - 06/26/2024 11:59 PM EST Hospital Encounter [facility] [place] [facility] [address] [place] [address] Djeon Capone MD Non-pressure chronic ulcer of right lower leg, unspecified ulcer stage (HCC) Discharge Disposition: Home or Self Care 06/25/2024 Telephone [facility] [place] [address] [facility] [address] [place] [address] Theresa Goff, Visor Installer New Patient 06/25/2024 Orders Only [facility] [address] [facility] [address] [place] [address] Ceci Simms MA Lumbar foraminal stenosis (Primary Dx); Lumbar spondylosis; Degeneration of intervertebral disc of lumbar region with discogenic back pain; Lumbar pain; Myofascial pain 06/25/2024 Telephone [facility] [address] [phone] Jose Solorio MD 06/13/2024 Travel 06/13/2024 2:15 PM EST Office Visit [facility] [place] [address] Jona Chau MD ASHD (arteriosclerotic heart disease) (Primary Dx) 06/12/2024 Telephone [facility] [address] [place] [address] Michela Castañeda RT Follow-up 06/12/2024 10:48 AM EST - 06/12/2024 11:59 PM EST Hospital Encounter [facility] E[facility] [address] [place] [address] Vernell Bejarano APRN Paroxysmal atrial fibrillation (HCC); Chronic systolic heart failure (HCC); 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; Primary hypertension; Mitral valve disease; Hx of mitral valve replacement; PAD (peripheral artery disease); S/P CABG x 2; single chamber ICD Discharge Disposition: Home or Self Care 06/11/2024 Orders Only [facility] [place] [address] [place] [address] Michela Castañeda, RT Non-pressure chronic ulcer of right lower leg, unspecified ulcer stage (HCC) (Primary Dx) 06/11/2024 3:00 PM EST Office Visit [facility] [place] [address] [place] [address] Dejon Capone MD Leg swelling (Primary Dx) 06/11/2024 2:00 PM EST Clinical Support [facility] [place] [address] [place] [address] Varicose veins of leg with edema, right (Primary Dx) 06/03/2024 Orders Only [facility] [address] [phone] Radha Cotton MD Vector Remote Device 05/24/2024 Refill [facility] [address] [address] Ceci Simms MA Medication Refill 05/24/2024 10:30 AM EST Office Visit [facility] [address] [address] Jose Solorio MD Lumbar foraminal stenosis (Primary Dx); Lumbar spondylosis; Degeneration of intervertebral disc of lumbar region with discogenic back pain; Lumbar pain; Myofascial pain; SI (sacroiliac) joint dysfunction; Pain in other specified joint; Low back pain, unspecified back pain laterality, unspecified chronicity, unspecified whether sciatica present; Postlaminectomy syndrome 05/03/2024 Orders Only [facility] [address] [facility] [address] [place] [phone] Radha Cotton MD Vector Remote Device 04/26/2024 Telephone [facility] [address] [place] [address] Arsen Kerr MD Missed Appointment (pt thought this appt was cancelled, he declined a r/s appt) 04/25/2024 Telephone [facility] [address] [place] [address] [place] [phone] Nicole Jacobsen (MDT ICD. Carelink monitor. ) 04/25/2024 9:30 AM EDT [facility] [address] [facility] [address] [place], [place] [phone] René Perea MD SI (sacroiliac) joint dysfunction (Primary Dx) 04/22/2024 Telephone [facility] [place] [address] [place] [address] Sofia Maciel MA Follow-up 04/19/2024 Telephone [facility] [address] [phone] Jona Chau MD Medication Refill 04/17/2024 1:30 PM EDT Office Visit [facility] [address] [place] [address] [place] [phone] Theodora Barrera RN Ischemic cardiomyopathy (Primary Dx); Chronic systolic heart failure (HCC); Cardiac arrest with ventricular fibrillation (HCC); ICD (implantable cardioverter-defibril lator), single, in situ; Paroxysmal atrial fibrillation (HCC); Implantable defibrillator reprogramming/check 04/17/2024 2:00 PM EDT Office Visit [facility] [address] [place] [address] [place] [phone] Radha Cotton MD Paroxysmal atrial fibrillation (HCC) (Primary Dx); ICD (implantable cardioverter-defibril lator), single, in situ 04/16/2024 1:30 PM EDT Office Visit [facility] [place] [address] [place] [address] Dejon Capone MD Varicose veins of leg with edema, right (Primary Dx); Non-pressure chronic ulcer of right lower leg, unspecified ulcer stage (HCC); Varicose veins of leg with pain, right 04/12/2024 Telephone [facility] [address] [facility] [address] [place] [address] Evangelina Xiong RN Results (Carelink alert for shock delivered for VF @ 300 bpm) 04/11/2024 Orders Only [facility] [address] [facility] [address] [place] [address] Radha Cotton MD Vector Remote Device 04/05/2024 1:00 PM EDT Office Visit [facility] [address] [facility] [address] [place] [address] Theresa Corona PA SI (sacroiliac) joint dysfunction (Primary Dx); Sacroiliac joint pain; Sacroiliitis, not elsewhere classified; Chronic low back pain, unspecified back pain laterality, unspecified whether sciatica present 04/04/2024 Refill [facility] [place] [address] [place] [address] Jona Chau MD Medication Refill 04/02/2024 2:50 PM EDT Ancillary Procedure [facility] [address] [place] [address] René Brown MD Status post hip replacement, right 04/02/2024 2:30 PM EDT Office Visit [facility] [address] [place] [address] René Brown MD Status post hip replacement, right (Primary Dx); Chronic low back pain, unspecified back pain laterality, unspecified whether sciatica present 03/29/2024 1:54 PM EDT - 03/29/2024 11:59 PM EDT Hospital Encounter [facility] [place] [address] [place] [address] Arsen Kerr MD Non-pressure chronic [...] 03/26/2024 Orders Only [facility] [address] [place] [address] Radha Cotton MD Vector Remote Device 03/22/2024 Telephone [facility] [place] [address] [place] [address] Devaughn Paris MD Missed Appointment (Got caught in traffic. Rescheduled for 03/29) 03/21/2024 10:15 AM EDT Office Visit [facility] [address] [place] [address] René Perea MD DDD (degenerative disc disease), lumbar (Primary Dx); Sacroiliitis, not elsewhere classified 03/14/2024 2:15 PM EDT Ancillary Procedure [facility] [address] [address] Theresa Corona PA DDD (degenerative disc disease), lumbar 03/14/2024 2:00 PM EDT Office Visit [facility] [address] [address] Theresa Corona PA DDD (degenerative disc disease), lumbar (Primary Dx); Sacroiliac joint pain; SI (sacroiliac) joint dysfunction; Chronic low back pain, unspecified back pain laterality, unspecified whether sciatica present; Lumbar degenerative disc disease; Lumbar foraminal stenosis; Lumbar spondylosis; Lumbar radiculopathy; Lumbar pain; Myofascial pain 03/08/2024 3:13 PM EDT - 03/08/2024 11:59 PM EDT Hospital Encounter [facility] [place] [address] [place] [address] Devaughn Paris MD Edema of both lower legs due to peripheral venous insufficiency (Primary Dx); Venous stasis ulcer of left lower leg with edema of left lower leg (HCC); Non-pressure chronic ulcer of right lower leg with fat layer exposed (HCC); Non-pressure chronic ulcer of left lower leg, with fat layer exposed (HCC) Discharge Disposition: Home or Self Care 03/01/2024 Telephone [facility] [place] [address] [place] [address] Devaughn Paris MD Follow-up (Left VM asked pt to schedule apt with WC) 02/29/2024 [place] [address] René Nicholas PA-C 02/23/2024 2:45 [place] [address] René Nicholas PA-C DDD (degenerative disc disease), lumbar (Primary Dx); Status post hip replacement, right; Chronic left SI joint pain 02/16/2024 3:35 PM EDT - 02/16/2024 11:59 PM EDT Hospital Encounter [facility] [place] [address] [place] [address] Dejon Capone MD Non-pressure chronic ulcer of right lower leg with fat layer exposed (HCC) (Primary Dx); Non-pressure chronic ulcer of other part of left lower leg with fat layer exposed (HCC) Discharge Disposition: Home or Self Care 02/12/2024 7:59 AM EDT - 02/12/2024 11:59 PM EDT Hospital Encounter [facility] [place] [address] Dejon Capone MD Bilateral leg edema Discharge Disposition: Home or Self Care 02/09/2024 3:25 PM EDT - 02/09/2024 3:28 PM EDT Hospital Encounter [facility] [place] [address] [place] [address] Paroxysmal atrial fibrillation (HCC); Chronic systolic heart failure (HCC); 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; Primary hypertension; Mitral valve disease; Hx of mitral valve replacement; PAD (peripheral artery disease); S/P CABG x 2; single chamber ICD; Bilateral leg edema Discharge Disposition: Home or Self Care 02/09/2024 3:29 PM EDT - 02/09/2024 11:59 PM EDT Hospital Encounter [facility] [place] [address] [place] [address] Dejon Capone MD Non-pressure chronic ulcer of right lower leg with fat layer exposed (HCC) (Primary Dx); Non-pressure chronic ulcer of other part of left lower leg with fat layer exposed (HCC); Edema of both lower legs due to peripheral venous insufficiency; Venous insufficiency Discharge Disposition: Home or Self Care 02/08/2024 3:20 PM ED[place] [address] René Nicholas PA-C Status post hip replacement, right 02/08/2024 4:00 [place] [address] René Nicholas PA-C Status post hip replacement, right (Primary Dx) 02/02/2024 2:00 PM EDT - 02/02/2024 11:59 PM EDT Hospital Encounter [facility] [place] [address] [facility] [place] [address] Devaughn Paris MD Non-pressure chronic ulcer of right lower leg with fat layer exposed (HCC) (Primary Dx); Non-pressure chronic ulcer of other part of left lower leg with fat layer exposed (HCC); Edema of both lower legs due to peripheral venous insufficiency Discharge Disposition: Home or Self Care 01/30/2024 Orders Only [facility] [place] [address] [place] [address] Michela Castañeda RT Bilateral leg edema (Primary Dx) 01/30/2024 Telephone [facility] [place] [address] [place] [address] Michela Castañeda RT Confirmation; Follow-up 01/29/2024 2:00 PM EDT Office Visit [facility] [place] [address] Vernell Bejarano APRN Paroxysmal atrial fibrillation (HCC) (Primary Dx); Chronic systolic heart failure (HCC); 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; Primary hypertension; Mitral valve disease; Hx of mitral valve replacement; PAD (peripheral artery disease); S/P CABG x 2; single chamber ICD 01/28/2024 Travel 01/26/2024 3:30 PM EDT - 01/26/2024 11:59 PM EDT Hospital Encounter [facility] [place] [address] [place] [address] Devaughn Paris MD Non-pressure chronic ulcer of right lower leg with fat layer exposed (HCC) (Primary Dx); Non-pressure chronic ulcer of other part of left lower leg with fat layer exposed (HCC) Discharge Disposition: Home or Self Care 01/23/2024 Telephone [facility] [place] [address] [place] [address] Michela Castañeda, RT Schedule Appointment 01/23/2024 11:00 AM EDT Office Visit [facility] [place] [address] [place] [address] Dejon Capone MD Symptom of leg swelling (Primary Dx) 01/23/2024 9:00 AM EDT Office Visit [facility] [place] [address] [place] [address] Edema of both lower legs due to peripheral venous insufficiency (Primary Dx) 01/19/2024 2:00 PM EDT - 01/19/2024 11:59 PM EDT Hospital Encounter [facility] [address] [place] [address] Devaughn Paris MD Non-pressure chronic ulcer of right lower leg with fat layer exposed (HCC) (Primary Dx); Edema of both lower legs due to peripheral venous insufficiency; Non-pressure chronic ulcer of other part of left lower leg with fat layer exposed (HCC) Discharge Disposition: Home or Self Care 01/16/2024 Orders Only [facility] [place] [address] [place], [place] [phone] Michela Castañeda, RT Bilateral leg edema (Primary Dx) 01/09/2024 Refill [facility] [place] [address] [place] [address] René Brown MD Medication Refill 01/09/2024 2:15 PM EDT Ancillary Procedure [facility] [address] [place] [address] René Nicholas PA-C Status post hip replacement, right 01/09/2024 2:00 PM EDT Office Visit [facility] [address] [place] [address] René Nicholas PA-C Status post hip replacement, right (Primary Dx) 01/07/2024 Travel 12/29/2023 Telephone [facility] [place] [address] [facility] [place] [address] Ame Chirinos RN Cancelled Appointment 12/27/2023 Orders Only [facility] [address] [facility] [address] [place] [address] Radha Cotton MD Vector Remote Device 12/27/2023 Travel 12/27/2023 12:30 PM EDT - 12/27/2023 2:50 PM EDT Surgery [facility] [address] [place] [address] René Brown MD TOTAL HIP ARTHROPLASTY/REPLACEM ENT-ANTERIOR OR REVISION ANTERIOR (CHELLY/KAUSHIK) 12/27/2023 12:16 PM EDT Anesthesia Event [facility] [address] [place] [address] Howard Acuña, DO Record, Lanie Puga, DRY HEAT ROOM ATTENDANT 12/27/2023 10:44 AM EDT - 12/27/2023 7:04 PM EDT Hospital Encounter [facility] [address] [place] [phone] René Brown MD Discharge Disposition: Home or Self Care 12/26/2023 Orders Only [facility] [address] [facility] [address] [place] [address] Radha Cotton MD Vector Remote Device 12/25/2023 Travel 12/25/2023 2:45 PM EDT - 12/25/2023 11:59 PM EDT Hospital Encounter [facility] PRE-ADMIT TESTING [facility] [place] [address] Preop testing (Primary Dx); Anticoagulation adequate Discharge Disposition: Home or Self Care 12/22/2023 Orders Only [facility] [facility] [address] [place] [address] René Brown MD Osteoarthritis of one hip, right (Primary Dx) 12/22/2023 [place] [address] René Brown MD Surgery Scheduling 12/22/2023 2:57 PM EDT - 12/22/2023 11:59 PM EDT Hospital Encounter [facility] Wound Care [place] [address] [place] [address] Devaughn Paris MD Edema of both lower legs due to peripheral venous insufficiency (Primary Dx) Discharge Disposition: Home or Self Care 12/21/2023 Telephone [place] [phone] René Brown MD Other 12/20/2023 2:00 PM EDT Office Visit [facility] Podiatry [address] [place] [address] Gabrielle Alexander, DPM Ingrowing nail (Primary Dx); Pyogenic granuloma of skin; Pain in toe of right foot 12/19/2023 Telephone [place] [phone] René Brown MD Other 12/15/2023 3:00 PM EDT - 12/15/2023 11:59 PM EDT Hospital Encounter [facility] Wound Care Center [place] [address] [place] [address] Dejon Capone MD Venous insufficiency (Primary Dx) Discharge Disposition: Home or Self Care 12/08/2023 2:30 PM EDT - 12/08/2023 11:59 PM EDT Hospital Encounter [facility] Wound Care [place] [address] [place] [address] Dejon Capone MD Non-pressure chronic ulcer of right lower leg with fat layer exposed (HCC) (Primary Dx); Edema of both lower legs due to peripheral venous insufficiency Discharge Disposition: Home or Self Care 12/05/2023 Telephone [facility] [place] [address] Kayleen Turcios Follow-up 12/03/2023 [place] [address] Jona Chau MD Medication Refill 12/01/2023 Orders Only [facility] [address] [place] [phone] Radha Cotton MD Vector Remote Device 12/01/2023 Telephone [facility] [address] [place] [phone] René Brown MD Other 11/30/2023 Refill [facility] [place] [phone] Jona Chau MD Medication Refill 11/30/2023 2:30 PM EDT Office Visit [facility] [address] [place] [phone] Funmi Aldrich APRN Paroxysmal atrial fibrillation (HCC) (Primary Dx); NSTEMI (non-ST elevated myocardial infarction) (HCC); 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; Ventricular fibrillation (HCC); single chamber ICD; Acute on chronic HFrEF (heart failure with reduced ejection fraction) (HCC); Hx of mitral valve replacement; NSVT (nonsustained ventricular tachycardia) (HCC) 11/30/2023 2:00 PM EDT Office Visit [facility] [address] [place] [phone] Evangelina Xiong RN Presence of automatic cardioverter/defibril lator (AICD) (Primary Dx); Implantable defibrillator reprogramming/check; Paroxysmal atrial fibrillation (HCC); Cardiogenic shock (HCC); Ventricular fibrillation (HCC); Chronic systolic heart failure (HCC) 11/28/2023 11:59 PM EDT Anesthesia Event EDG SURGERY [facility] [place] [address] Mackenzie Irwin APRN 11/28/2023 1:00 PM EDT Office Visit [facility] [place] [address] [place] [address] Dejon Capone MD Bilateral leg edema (Primary Dx) 11/27/2023 Travel 11/24/2023 Orders Only [facility] [address] [place] [phone] René Brown MD Osteoarthritis of one hip, right (Primary Dx) 11/23/2023 Telephone [place] [address] Jona Chau MD Cardiology Clearance 11/23/2023 2:25 PM EDT [place] [address] René Brown MD Osteoarthritis of one hip, right 11/23/2023 2:00 [place] [address] René Brown MD Osteoarthritis of one hip, right (Primary Dx) 11/21/2023 10:01 AM EDT - 11/21/2023 11:59 PM EDT Hospital Encounter [facility] [place] [address] Alireza Clifton PA-C Venous stasis ulcer of right lower leg with edema of right lower leg (HCC) (Primary Dx); Venous insufficiency Discharge Disposition: Home or Self Care 11/14/2023 10:04 AM EDT - 11/14/2023 11:59 PM EDT Hospital Encounter [facility] [place] [address] Alireza Clifton PA-C Venous stasis ulcer of [...] or Self Care 11/07/2023 Telephone [facility] [place] [address] [place] [address] Harsha Hayward, RT Follow-up 11/07/2023 10:10 AM EDT - 11/07/2023 11:59 PM EDT Hospital Encounter [facility] [address] [place] [address] Alireza Clifton PA-C Venous stasis ulcer of other part of right lower leg limited to breakdown of skin, unspecified whether varicose veins present (HCC) (Primary Dx); Venous stasis ulcer of right lower leg with edema of right lower leg (HCC); Venous insufficiency; Venous ulcer with fat layer exposed (HCC) Discharge Disposition: Home or Self Care 11/01/2023 [place] [address] René Brown MD Other 10/31/2023 10:00 AM EDT - 10/31/2023 11:59 PM EDT Hospital Encounter [facility] [place] [address] [place] [address] Alireza Clifton PA-C Venous stasis ulcer of right lower leg with edema of right lower leg (HCC) (Primary Dx); Chronic venous hypertension (idiopathic) with ulcer and inflammation of right lower extremity (HCC); Venous insufficiency Discharge Disposition: Home or Self Care 10/23/2023 12:17 PM EDT - 10/23/2023 11:59 PM EDT Hospital Encounter [facility] [place] [address] [place] [address] Alireza Clifton PA-C Chronic venous hypertension (idiopathic) with ulcer and inflammation of right lower extremity (HCC) (Primary Dx); Venous stasis ulcer of right lower leg with edema of right lower leg (HCC); Venous ulcer with fat layer exposed (HCC); Chronic systolic heart failure (HCC); Paroxysmal atrial fibrillation (HCC) Discharge Disposition: Home or Self Care 10/19/2023 [place] [address] Jona Chau MD Medication Refill 10/17/2023 Telephone [facility] [place] [address] [place], [place] [phone] Jona Chau MD Medication Question 10/17/2023 [place] [address] René Brown MD Other (cancel surgery) 10/17/2023 11:15 [place] [address] René Brown MD Open wound of right lower leg, initial encounter (Primary Dx); Osteoarthritis of one hip, right 10/12/2023 Telephone EDG PRE-ADMIT TESTING [facility] [place] [address] Chanell Kothari RN Cardiology Clearance 10/11/2023 [place] [address] René Brown MD Other 10/11/2023 Travel 10/11/2023 Telephone [facility] [address] [address] Jona Chau MD Cardiology Clearance 10/11/2023 12:45 PM EDT - 10/11/2023 11:59 PM EDT Hospital Encounter [facility] PRE-ADMIT TESTING [facility] 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 [facility] [place] [address] Vinnie Crowell MD CORONARY ANGIOGRAM WITH GRAFTS / CARDIAC CATHETERIZATION 09/30/2023 2:09 PM EDT - 10/03/2023 6:27 PM EDT Hospital Encounter [facility] [place] [address] Amber Fuller MD Elliott, Andrew Wentworth, MD Jaligama, Deepthi, MD Chest pain, unspecified type (Primary Dx); Shortness of breath; Lower extremity edema Discharge Disposition: Home or Self Care 09/30/2023 Travel 09/25/2023 Orders Only [facility] [address] [facility] [address] [place] [address] Radha Cotton MD Vector Remote Device 08/10/2023 [facility] [address] [id number] René Brown MD Osteoarthritis of one hip, right (Primary Dx) 08/10/2023 1:45 PM EST Office Visit [facility] [address] [place] [address] René Brown MD Osteoarthritis of one hip, right (Primary Dx) 08/08/2023 Tele[place] [address] Jona Chau MD Medication Refill 07/31/2023 Orders [place] [address] Clara Barrett CMA 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 (Primary Dx); ASHD (arteriosclerotic heart disease); SOB (shortness of breath) 07/27/2023 1:02 PM EST - 07/27/2023 11:59 PM EST Hospital Encounter [facility] E[facility] [address] [place] [address] [address] [place] [address] Jona Chau MD ASHD (arteriosclerotic heart disease); SOB (shortness of breath) Discharge Disposition: Home or Self Care 07/18/2023 Patient Outreach [facility] [address] [place] [address] Gaye Stern MD Central Order Completion Outreach (Colon) 07/06/2023 2:15 PM EST Office [place] [address] Jona Chau MD ASHD (arteriosclerotic heart disease) (Primary Dx); SOB (shortness of breath) 06/26/2023 Orders Only [facility] [address] [place] [address] [address] [place] [address] Radha Cotton MD Vector Remote Device 06/26/2023 Telephone [facility] [address] [place] [address] [address] [place] [address] Evangelina Xiong, RN Results (Carelink results) 06/07/2023 Telephone [place] [address] Jona Chau MD Medication Refill (Transfer to [facility] Losartan) 05/31/2023 3:00 PM EST - 05/31/2023 11:59 PM EST Hospital Encounter [facility] [address] [place] [address] Andreina Stephens APRN PAD (peripheral artery disease); Ulcer of right lower leg, with unspecified severity (HCC) Discharge Disposition: Home or Self Care 05/31/2023 2:00 PM EST - 05/31/2023 2:59 PM EST Hospital Encounter [facility] [address] [place] [address] Andreina Stephens APRN Non-pressure chronic ulcer of right lower leg, unspecified ulcer stage (HCC); Edema, unspecified type Discharge Disposition: Home or Self Care 05/18/2023 Orders Only [facility] [address] [place] [address] Gaye Stern MD Screening for cancer of the rectum; Screen for colon cancer 03/31/2023 Telephone [facility] [address] [place] [phone] Gaye Stern MD Paperwork/forms (copies of xray and MRI ) 03/27/2023 Telephone [facility] [address] [place] [address] [place] [phone] Chu Sr RN ICD Check (Remote results) 03/26/2023 Orders Only [facility] [address] [place] [address] [place] [phone] Radha Cotton MD Vector Remote Device 03/18/2023 Ref[place] [address] Jona Chau MD Medication Refill 02/20/2023 Orders Only [facility] [address] [place] [address] [place] [phone] Radha Cotton MD Vector Remote Device 02/20/2023 Telephone [facility] [address] [place] [address] [address] [place] [address] Chu Sr, RN ICD Check (Remote results) 02/14/2023 Travel 02/14/2023 3:00 PM EDT - 02/14/2023 11:59 PM EDT Hospital Encounter [facility] [address] [place] [address] Right hip pain Discharge Disposition: Home or Self Care 01/19/2023 Orders Only [facility] [address] [facility] [address] [place] [address] Radha Cottno MD Vector Remote Device 01/19/2023 Telephone [facility] [address] [place] [address] [address] [place] [address] Evangelina Xiong RN Results 01/09/2023 1:45 PM EDT - 01/09/2023 11:59 PM EDT Hospital Encounter [facility] [address] [place] [address] Louis Yadav MD Radiculopathy, unspecified spinal region (Primary Dx) Discharge Disposition: Home or Self Care 01/09/2023 Travel 01/09/2023 12:29 PM EDT - 01/09/2023 1:44 PM EDT Hospital Encounter [facility] [address] [place] [address] Louis Yadav MD Radiculopathy, lumbar region Discharge Disposition: Home or Self Care 12/26/2022 Telephone [facility] [address] [place] [address] [place] [phone] Evangelina Xiong, RN Results (Carelink results-) 12/25/2022 Orders Only [facility] [address] [place] [address] [place] [phone] Radha Cotton MD Vector Remote Device 12/19/2022 Telephone [facility] [address] [place] [address] [place] [phone] Radha Cotton MD Other (Medication refill- Metoprolol ER 100 mg ) 11/23/2022 3:00 PM EDT Office Visit [facility] [address] [address] Michela Abarca APRN Chronic systolic heart failure (HCC) (Primary Dx); Class 1 obesity due to excess calories without serious comorbidity with body mass index (BMI) of 33.0 to 33.9 in adult; Mitral valve disease; Paroxysmal atrial fibrillation (HCC); ICD (implantable cardioverter-defibril lator), single, in situ 11/23/2022 2:30 PM EDT Office Visit [facility] [address] [address] Chu Sr RN Implantable defibrillator reprogramming/check (Primary Dx); Ventricular fibrillation (HCC); Paroxysmal atrial fibrillation (HCC); Chronic systolic heart failure (HCC); ICD (implantable cardioverter-defibril lator), single, in situ 11/18/2022 Orders Only [facility] [address] [address] Radha Cotton MD Vector Remote Device 11/18/2022 Telephone [facility] [address] [phone] Radha Cotton MD Other (MDT ICD beeping); Results (Device alert is not set to go off at 4 AM- only at 8 AM) 11/17/2022 Refill [facility] [place] [phone] Jona Chau MD Medication Refill 11/15/2022 Orders Only [facility] [address] [phone] Radha Cotton MD Vector Remote Device 11/14/2022 Telephone [facility] [address] [address] Nicole Jacobsen Other (Carelink monitor reset) 11/01/2022 Refill [facility] [address] [id number] Jona Chau MD Medication Refill 10/27/2022 1:45 PM EDT Office Visit [facility] [address] [place] [address] Jona Chau MD ASHD (arteriosclerotic heart disease) (Primary Dx) 10/25/2022 Orders Only [facility] [address] [facility] [address] [place] [address] Radha Cotton MD Vector Remote Device 10/25/2022 Telephone [facility] [address] [place] [address] [address] [place] [address] Radha Cotton MD Other 10/24/2022 Refill [facility] [address] [place] [address] [phone] Jona Chau MD Medication Refill 09/26/2022 Telephone [facility] [address] [place] [address] [place] [phone] Nicole Jacobsen Other (Carelink report) 09/25/2022 Orders Only [facility] [address] [place] [address] [place] [phone] Radha Cotton MD Vector Remote Device 09/08/2022 Travel 09/08/2022 2:56 PM EST - 09/08/2022 11:59 PM EST Hospital Encounter [facility] [address] [place] [address] [facility] Carpal tunnel syndrome of left wrist (Primary Dx); Cervical radiculopathy Discharge Disposition: Home or Self Care 09/07/2022 Orders Only [facility] [address] [facility] [address] [place] [address] Alvarez Jaimes MD Cervical radiculopathy (Primary Dx) 07/20/2022 Patient Outreach [facility] [address] [place] [address] Gaye Stern MD Central Order Completion Outreach (Colon) 06/26/2022 Orders Only [facility] [address] [place] [address] [address] [place] [address] Radha Cotton MD Vector Remote Device 06/17/2022 Refill [facility] [address] [address] Jona Chau MD Medication Refill 05/18/2022 Telephone [facility] [address] [address] Jona Chau MD Follow-up 05/16/2022 Orders Only [facility] [address] [place] [address] Gaye Stern MD Screening for cancer of the rectum; Screen for colon cancer 05/13/2022 Refill [facility] [address] [place] [address] [address] [place] [address] Michela Abarca APRN Medication Refill 04/28/2022 1:45 PM EDT Office Visit [facility]&[address] [address] Jona Chau MD ASHD (arteriosclerotic heart disease) (Primary Dx) 04/26/2022 Telephone [facility] [place] [address] [place] [address] Gaye Stern MD Medication Management (pt requesting meds removed from med list) 04/26/2022 1:20 PM EDT Office Visit [facility] [place] [address] 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; Atypical nevus; Paroxysmal atrial fibrillation (HCC) 04/22/2022 Refill [facility] [address] [address] Jona Chau MD Medication Refill 04/20/2022 Telephone [facility] [address] [address] Jona Chau MD Cardiology Clearance (error) 03/25/2022 Orders Only [facility] [address] [place] [phone] Radha Cotton MD Vector Remote Device 03/04/2022 Travel 03/04/2022 2:50 PM EDT - 03/04/2022 11:59 PM EDT Hospital Encounter [facility] [address] [place] [address] Lumbar radiculopathy; Spinal stenosis, unspecified spinal region Discharge Disposition: Home or Self Care 02/08/2022 1:00 PM EDT Office Visit [facility] [address] [phone] Chu Sr RN Encounter for implantable defibrillator reprogramming or check (Primary Dx); Cardiogenic shock (HCC); Ventricular fibrillation (HCC); Permanent atrial fibrillation (HCC); ICD (implantable cardioverter-defibril lator), single, in situ 02/08/2022 1:30 PM EDT Office Visit [facility] [address] Radha Cotton MD ICD (implantable cardioverter-defibril lator), single, in situ (Primary Dx) 01/20/2022 [place] [address] Jona Chau MD Medication Refill 12/23/2021 Orders Only [facility] [address] [place] [phone] Radha Cotton MD Vector Remote Device 12/10/2021 Refill [facility] [address] [address] Jona Chau MD Medication Refill 11/09/2021 Refill [facility] [address] [place] [phone] Michela Abarca APRN Medication Refill 10/27/2021 2:30 PM EDT Office [place] [address] Jona Chau MD ASHD (arteriosclerotic heart disease) (Primary Dx) 10/26/2021 Travel 10/26/2021 12:03 PM EDT - 10/26/2021 11:59 PM EDT Hospital Encounter [facility] [address] [place] [address] [address] [place] [address] Jona Chau MD S/P CABG x 2; SOB (shortness of breath) Discharge Disposition: Home or Self Care 10/15/2021 Travel 10/15/2021 12:23 PM EDT - 10/15/2021 11:59 PM EDT Hospital Encounter [facility] [place] [address] Louis Yadav MD Radiculopathy, lumbar region Discharge Disposition: Home or Self Care 09/23/2021 9:00 AM EDT Clinical Support [facility] [address] [place] [address] [address] [place] [address] Nicole Jacobsen ICD (implantable cardioverter-defibril lator), single, in situ (Primary Dx); Ventricular fibrillation (HCC); NSVT (nonsustained ventricular tachycardia) (HCC) 08/20/2021 Travel 08/20/2021 10:15 AM EST Office [place] [address] Jona Chau MD S/P CABG x 2 (Primary Dx); SOB (shortness of breath) 08/14/2021 Refill [facility] [address] [place] [address] 210 [place] [address] Michela Abarca APRN Medication Refill 07/20/2021 Orders Only [facility] [address] [place] [address] [address] [place] [address] Radha Cotton MD 07/14/2021 Orders Only [facility] [address] [place], [place] [address] Yasmeen Acosta, STEPH Chronic pain of left knee (Primary Dx) 07/12/2021 Travel 07/12/2021 2:45 PM EST - 07/12/2021 11:59 PM EST Hospital Encounter [facility] [address], [place] [address] Gaye Stern MD Chronic pain of left knee; History of knee joint replacement Discharge Disposition: Home or Self Care 07/09/2021 Travel 07/09/2021 11:10 AM EST Office Visit [facility] [address] [place], [place] [phone] Gaye Stern MD Chronic pain of left knee (Primary Dx); History of knee joint replacement 07/06/2021 Refill [facility] [address] [place] [address] Jona Chau MD Medication Refill 06/24/2021 Refill [facility] [address] [address] Luciano Chou MD Medication Refill 06/14/2021 Telephone [facility] [address] [place] [phone] Chu Sr RN ICD Check (remote results) 06/14/2021 Travel 06/14/2021 4:00 PM EST Clinical Support [facility] [address] [place] [address] [place] [phone] Chu Sr RN NSTEMI (non-ST elevated myocardial infarction) (HCC) (Primary Dx); Ventricular fibrillation (HCC); ICD (implantable cardioverter-defibril lator), single, in situ 06/10/2021 Travel 06/10/2021 2:20 PM EST Office Visit [facility] [address] [address] Luciano Chou MD Permanent atrial fibrillation (HCC) (Primary Dx); S/P CABG x 2; Dyslipidemia 05/14/2021 Refill [facility] [address] [place] [address] [address] [place] [address] Radha Cotton MD Medication Refill 05/14/2021 Refill [facility] [address] [place] [address] Anders New MD Medication Refill; Medication Refill 02/24/2021 Travel 02/24/2021 1:30 PM EDT Office Visit [facility] [address] [place] [address] Althea Cole APRN Essential hypertension (Primary Dx); Chronic atrial fibrillation (HCC); Ischemic cardiomyopathy; S/P CABG x 2; Hx of mitral valve replacement 02/08/2021 Orders Only [facility] [address] [place] [address] [address] [place] [address] Radha Cotton MD 02/08/2021 Telephone [facility] [address] [place] [address] [address] [place] [address] Chu Sr, SHA Other (remote alert) 02/05/2021 Travel 02/05/2021 2:00 PM EDT Office Visit [facility] [address] [place] [address] [address] [place] [address] Radha Cotton MD ICD (implantable cardioverter-defibril lator) in place (Primary Dx); Encounter for implantable defibrillator reprogramming or check 01/28/2021 Telephone [facility] [address] [place] [address] Anders New MD Results 01/19/2021 Travel 01/19/2021 1:00 PM EDT - 01/19/2021 11:59 PM EDT Hospital Encounter [facility] [address] [place] [address] Anders New MD Hx of mitral valve replacement; Ischemic cardiomyopathy Discharge Disposition: Home or Self Care 12/11/2020 Refill [facility] [address] [place] [address] Anders New MD Medication Refill 11/27/2020 11:30 AM EDT Office Visit [facility] Podiatry [place] [address] [facility] [address] [place] [address] Odilia Dumont DPEdd Pain in toes of both feet (Primary Dx); Ingrown left big toenail; Abrasion of lesser toe of left foot, subsequent encounter 11/26/2020 Travel 11/26/2020 2:00 PM EDT Office Visit [facility] [address] [place] [address] Anders New MD Chronic atrial fibrillation (HCC) (Primary Dx); Hx of mitral valve replacement; Ischemic cardiomyopathy 11/09/2020 Telephone [facility] Arrhythmia Ctr Edg [address] [place] [address] [place] [phone] Evangelina Xiong, RN Other (carelink results) 11/09/2020 9:00 AM EDT Clinical Support [facility] Arrhythmia Ctr Edg [address] [place] [address] [place] [phone] Evangelina Xiong, RN Ventricular fibrillation (HCC) (Primary Dx); ICD (implantable cardioverter-defibril lator) in place; Cardiogenic shock (HCC) 11/09/2020 Travel 11/06/2020 Travel 11/06/2020 2:30 PM EDT Office Visit [facility] Podiatry [place] [address] [facility] [address] [place] [address] Odilia Dumont DPM Abrasion of lesser toe of left foot, initial encounter (Primary Dx); Pain in toes of both feet; Ingrown left big toenail 10/16/2020 Refill [facility] H&V CV [facility] [address] [place] [address] Anders New MD Medication Refill 10/09/2020 Travel 10/09/2020 2:30 PM EDT Office Visit [facility] [address] [facility] [address] [place] [address] Odilia Dumont, DPM Abscess of second toenail of left foot (Primary Dx); Ingrowing toenail with infection; Pain in toes of both feet; Onychauxis; Abscess of second toenail of right foot; Ingrown left big toenail 09/25/2020 Travel 09/25/2020 Abstract [facility] H&V CV [facility] [address] [place] [address] Anders New MD 09/25/2020 11:30 AM EDT Office Visit [facility] [place] [address] [address] Odilia Dumont, DPM Pain in toes of both feet (Primary Dx); Ingrown left big toenail; Ingrowing toenail with infection; Abscess of second toenail of right foot; Abscess of second toenail of left foot; Onychauxis 09/18/2020 Travel 09/18/2020 3:00 PM EST Office Visit [facility] [place] [address] [address] Odilia Dumont, DPM Pain in toes of both feet (Primary Dx); Ingrown left big toenail; Ingrowing toenail with infection; Abscess of second toenail of right foot; Abscess of second toenail of left foot; Onychauxis 09/11/2020 Travel 09/11/2020 2:00 PM EST Office Visit [facility] [address] [facility] [address] [place] [address] Odilia Dumont, DPM Ingrown left big toenail (Primary Dx); Ingrowing toenail with infection; Pain in toes of both feet; Abscess of second toenail of left foot; Abscess of second toenail of right foot 09/04/2020 Travel 09/04/2020 8:57 AM EST - 09/04/2020 11:59 PM EST Hospital Encounter [facility] [address] [place] [id number] Helder Yung MD PAD (peripheral artery disease); Open wound of left great toe, initial encounter Discharge Disposition: Home or Self Care 09/01/2020 Travel 09/01/2020 1:40 PM EST Office Visit [facility] [address] [place] [address] Helder Yung MD PAD (peripheral artery disease) (Primary Dx); Open wound of left great toe, initial encounter; Ingrown toenail of left foot 08/31/2020 Travel 08/12/2020 Orders Only [facility] [place] [facility] [address] [place] [address] Helder Yung MD Hyperkalemia (Primary Dx) 08/11/2020 Travel 08/11/2020 1:20 PM EST Office Visit [facility] [facility] [address] [place] [address] Helder Yung MD Encounter for Medicare annual wellness exam (Primary Dx); 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; Essential hypertension; Permanent atrial fibrillation (HCC); Screening for thyroid disorder; Encounter for screening for lipid disorder; Screening for metabolic disorder; Screening for iron deficiency anemia 08/10/2020 Telephone [facility] [address] [facility] [address] [place] [address] Evangelina Xiong RN Other (carelink results) 08/10/2020 Travel 08/08/2020 9:00 AM EST Clinical Support [facility] [address] [facility] [address] [place] [address] Evangelina Xiong RN Ventricular fibrillation (HCC) (Primary Dx); ICD (implantable cardioverter-defibril lator) in place 07/30/2020 Telephone [facility] H&[facility] [address] [place] [address] Anders New MD Other 07/23/2020 Orders Only [place] [address] [place] [address] eTmi Isabel APRN Need for vaccination (Primary Dx) 07/23/2020 1:20 PM EST Clinical Support [place] [address] [place] [address] Theodora Elizalde Essential hypertension; Ischemic cardiomyopathy 07/20/2020 Travel 07/20/2020 Telephone [place] [address] [place] [address] Temi Isabel APRN Appointment Needed (Lab & Shingles Vaccine) 06/26/2020 Refill [facility] [address] [place] [address] Anders New MD Medication Refill 05/28/2020 Travel 05/28/2020 2:20 PM EST Office Visit [facility] [address] [place] [address] Anders New MD Chronic atrial fibrillation (HCC) (Primary Dx); Essential hypertension; Ischemic cardiomyopathy 05/11/2020 Orders Only [facility] [address] [place] [address] Anders New MD PAF (paroxysmal atrial fibrillation) (HCC) (Primary Dx) 05/08/2020 Telephone [facility] Arrhythmia Ctr Edg [address] [place] [address] [place] [phone] Evangelina Xiong RN Other (carelink results) 05/08/2020 9:00 AM EDT Clinical Support [facility] Ar[facility]hythmia [facility] [address] [place] [address] [address] [place] [address] Evangelina Xiong RN Ventricular fibrillation (HCC) (Primary Dx); ICD (implantable cardioverter-defibril lator) in place; Cardiogenic shock (HCC) 05/08/2020 Travel 04/22/2020 Travel 04/22/2020 1:20 PM EDT Clinical Support [facility] [address] [place] [address] Theodora Elizalde Essential hypertension; Chronic atrial fibrillation (HCC); Hx of mitral valve replacement 04/20/2020 Travel 04/20/2020 Telephone [facility] [place] [address] [place] [address] Temi Isabel APRN Appointment Needed (lab) 03/09/2020 Refill [facility] H[facility] [address] [place] [address] Anders New MD Medication Refill 02/07/2020 Travel 02/07/2020 1:00 PM EDT Office Visit [facility] Arrhythmia Ctr Edg [address] [place] [address] [address] [place] [address] Radha Cotton MD ICD (implantable cardioverter-defibril lator) in place (Primary Dx); Encounter for implantable defibrillator reprogramming or check 01/30/2020 Travel 01/30/2020 11:00 AM EDT Office Visit [facility] [address] [place] [address] Anders New MD Chronic atrial fibrillation (HCC) (Primary Dx); Hx of mitral valve replacement; Essential hypertension; S/P CABG x 2 01/07/2020 Telephone [facility] [address] [place] [address] Temi Isabel APRN Medicare Annual Wellness 01/01/2020 Patient Outreach [facility] Quality Transformation [address] [place] [address] Reena Benson RN Care Management - Chart Review 12/12/2019 Travel 12/12/2019 Telephone [facility] [address] [place] [address] Anders New MD Appointment Needed 12/05/2019 Travel 12/05/2019 9:40 AM EDT Office Visit [facility] [place] [address] [place] [address] [address] [place] [address] Helder Ariza MD S/P CABG x 2 (Primary Dx); Hx of mitral valve replacement 12/03/2019 Telephone [facility] [address] [place] [address] [address] [place] [address] Evangelina Xiong, RN Other (carelink results 6 wk check post op) 12/03/2019 2:30 PM EDT Clinical Support [facility] [address] [place] [address] [address] [place] [address] Evangelina Xiong, RN Ventricular fibrillation (HCC) (Primary Dx); Cardiogenic shock (HCC) 12/03/2019 Travel 11/29/2019 Telephone [facility] [address] [place] [address] [address] [place] [address] Alethea Garcia, Clerical Staff Cardiac Rehab (Referral) 11/29/2019 Travel 11/29/2019 10:00 AM EDT - 11/29/2019 11:59 PM EDT Hospital Encounter [facility] [place] [address] Helder Ariza MD SOB (shortness of breath) Discharge Disposition: Home or Self Care 11/27/2019 Travel 11/23/2019 Refill SE[facility] [address] [place] [address] Aga Stanley APRN Medication Refill 11/14/2019 Travel 11/14/2019 Orders Only [facility] Cardiac Surgeons [address] [place] [address] Helder Ariza MD SOB (shortness of breath) (Primary Dx) 11/14/2019 10:40 AM EDT Office Visit [facility] Card[facility] Surgeons [address] [place] [address] Helder Ariza MD S/P CABG x 2 (Primary Dx); Hx of mitral valve replacement 11/13/2019 Patient Outreach [facility] [address] [place] [address] Reena Benson RN Cm- Transitional Care Continued 11/13/2019 Telephone [facility] [address] [place] [address] Helder Ariza MD Other (pre registeration ) 11/08/2019 Travel 11/07/2019 Travel 11/07/2019 8:40 AM EDT Telemedicine [facility] [address] [place] [address] Helder Ariza MD Hx of mitral valve replacement; S/P CABG x 2 11/06/2019 Lab Requisition [facility] [place], [place] [id number] Dejon Yung MD 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 [address] Temi Isabel APRN Orders 10/31/2019 Telephone [facility] [address] [place] [address] [address] [place] [address] Chu Sr RN Other (post op incision check) 10/31/2019 Travel 10/31/2019 Patient Outreach [facility] [address] [place] [address] Reena Benson, RN Hospital Follow Up; Cm- Transitional Care Initiation; CM- Telephonic Outreach; CM-Medication Assistance; CM-Resource Coordination 10/30/2019 Orders Only [facility] [address] [place] [address] Helder Ariza MD S/P CABG (coronary artery bypass graft) (Primary Dx) 10/15/2019 2:55 PM EDT - 10/30/2019 12:50 PM EDT Hospital Encounter [facility] [employer] TRAINER [facility] 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 [address] Garfield [place] MD Powell, Jeanne, APRN 10/21/2019 11:45 AM EDT - 10/21/2019 1:15 PM EDT Surgery [facility] STERILE SUPPLY TECHNICIAN [facility] [place] [address] Radha Cotton MD INTERNAL CARDIOVERTER DEFIBRILLATOR (ICD) IMPLANT 10/17/2019 10:31 AM EDT [facility] [address] Nandini Amador MD Zimmermann, Anthony G, MD 10/17/2019 11:15 AM EDT - 10/17/2019 6:05 PM EDT Surgery EDG [facility] [place] [address] Helder Ariza MD CORONARY ARTERY BYPASS GRAFT 10/17/2019 7:46 AM EDT - 10/17/2019 8:46 AM EDT Surgery [facility] STERILE SUPPLY TECHNICIAN [facility] [place] [address] Anders New MD EMERGENT CORONARY ANGIOGRAM 10/15/2019 Travel 10/15/2019 3:00 PM EDT - 10/15/2019 4:00 PM EDT Surgery [facility] STERILE SUPPLY TECHNICIAN [facility] [place] [address] Anders New MD LEFT HEART CATHETERIZATION 10/12/2019 2:19 PM EDT - 10/15/2019 2:24 PM EDT Hospital Encounter [facility] [address] [address] [place] [address] Louis Cassidy MD Renard, Cruff, MD Right-sided chest pain (Primary Dx); Elevated troponin; Shortness of breath; Suspected COVID-19 virus infection; Atrial fibrillation, unspecified type (HCC) Discharge Disposition: Discharge/Readmit 10/14/2019 Travel 10/12/2019 Travel 10/12/2019 Telephone [facility] [place] [address] [facility] [address] [place] [address] Vee Cervantes APRN Shortness of Breath 09/09/2019 Travel 09/09/2019 9:20 AM EST Office Visit [facility] [address] [place] [address] Anders New MD Chronic atrial fibrillation (HCC) (Primary Dx); Essential hypertension 08/12/2019 Refill [facility] [address] [place] [address] Anders New MD Medication Refill 07/19/2019 Telephone [facility] [address] [address] Anders New MD Reschedule 04/09/2019 1:20 PM EDT Office Visit [facility] [address] [place] [address] Temi Isabel APRN Annual physical exam [...] Quality [facility]formation [address] [place] [address] Dior Ceron RN Results (Cologuard Results. ) 03/28/2019 Patient Outreach [facility] [address] [place], [place] [id number] Temi Isabel APRN Medicare Annual Wellness (Annual Wellness Questionnaire) 02/20/2019 Telephone [facility] [place] [address] [place] [address] Temi Isabel APRN Visit Follow Up 02/11/2019 Telephone [facility] H[facility] [address] [place] [address] Anders New MD Appointment Needed 02/06/2019 Refill [facility] [address] [place] [address] Aga Stanley APRN Medication Refill 11/08/2018 Orders Only [facility] [address] [place], [place] [address] Temi Isabel APRN Screening for colon cancer; Screening for cancer of the rectum 05/21/2018 8:00 AM EST Clinical Support [facility] [place] [facility] [address] [place] [address] Theodora Elizalde Hyperglycemia (Primary Dx); Annual physical exam; Screening for prostate cancer; Screening for deficiency anemia; Screening for diabetes mellitus; Screening for thyroid disorder; Low testosterone 05/08/2018 2:20 PM EDT Clinical Support [facility] [place] [address] [place] [address] Theodora Elizalde Low testosterone (Primary Dx) 05/07/2018 Refill [facility] [place] [address] [place] [address] Temi Isabel APRN Medication Refill 04/06/2018 1:20 PM EDT Clinical Support [address] [place] [address] Theodora Elizalde Low testosterone 04/02/[address] [place] [address] Temi Isabel APRN Medication Refill 03/08/2018 1:20 PM EDT Clinical Support [address] [place] [address] Theodora Elizalde Low testosterone (Primary Dx) 02/27/2018 10:00 AM EDT Office Visit [address] [place] [address] Temi Isabel, MARCELO Annual physical exam (Primary Dx); Ulnar neuropathy at elbow, right; Essential hypertension; DDD (degenerative disc disease), cervical; Paroxysmal atrial fibrillation (HCC); Screening for colon cancer; Screening for thyroid disorder; Screening for diabetes mellitus; Screening for hyperlipidemia; Chronic bilateral low back pain without sciatica; Screening for deficiency anemia; Screening for prostate cancer; Low testosterone 02/07/2018 9:30 AM EDT Office Visit [facility] H&V [place] [address] [address] Aga Stanley APRN Essential hypertension (Primary Dx); Chronic atrial fibrillation (HCC); Class 1 obesity due to excess calories without serious comorbidity with body mass index (BMI) of 33.0 to 33.9 in adult 02/05/2018 1:20 PM EDT Clinical Support [facility] [place] [address] [place] [address] Theodora Elizalde Low testosterone (Primary Dx) 02/02/[address] [place] [address] Temi Isabel APRN Medication Management 02/02/[address] [place] [address] Temi Isabel APRN Medication Refill 01/22/2018 Telephone [facility] H&V [address] [place] [address] Anders New MD Appointment Needed 01/18/2018 Refill [facility] H&V [address] [place] [address] Anders New MD Medication Refill 01/18/2018 Refill [facility] H&V [address] [place] [address] Anders New MD Medication Refill 01/05/2018 1:40 PM EDT Clinical Support [address] [place] [address] Theodora Elizalde Low testosterone (Primary Dx) 01/02/[address] [place] [address] Temi Isabel APRN Medication Management 12/19/2017 Refill [facility] H&V NPT[facility]TT [address] [place] [address] Anders New MD Medication Refill 2017 2:40 PM EDT Clinical Support [address] [place] [address] Theodora Elizalde Low testosterone (Primary Dx) 11/28/2017 11:00 AM EDT Office Visit [address] [place] [address] Temi Isabel APRN Low testosterone (Primary Dx); Chronic atrial fibrillation (HCC); DDD (degenerative disc disease), lumbar; DDD (degenerative disc disease), cervical; Essential hypertension 11/20/2017 Patient Outreach [address] [place] [address] Lela Torres RN ED Follow-Up Call; Care Transition; Care Management - Chart Review 11/17/2017 8:28 PM EDT - 11/17/2017 11:05 PM EDT Emergency [facility] [address] [place] [address] Radha Fitzpatrick MD Laceration of left lower extremity, initial encounter (Primary Dx) Discharge Disposition: Home or Self Care 09/25/2017 2:15 PM EDT - 09/25/2017 11:59 PM EDT Hospital Encounter [facility] MRI [address] [place], [place] [address] Phu Schroeder MD Lumbago-sciatica due to displacement of lumbar intervertebral disc Discharge Disposition: Home or Self Care 08/02/2017 8:30 AM EST Clinical Support [facility] [address] [place] [address] Trinity Irwin CCMA Male hypogonadism (Primary Dx) 06/23/2017 Refill [facility] [address] [place] [address] Anders New MD Medication Refill 06/22/2017 Telephone SEP [facility]&V [facility] [address] [address] Anders New MD Cardiology Clearance 06/22/2017 Telephone [facility] [place] [facility] [address] [place] [address] Temi Isabel APRN Other 06/21/2017 Orders Only [facility] [place] [facility] [address] [place] [address] Temi Isabel, MARCELO Chronic atrial fibrillation (HCC) (Primary Dx) 06/21/2017 11:00 AM EST - 06/21/2017 11:59 PM EST Hospital Encounter [facility] E[facility] [address] [place] [phone] Chronic atrial fibrillation (HCC); Mitral valve disease; Pre-op examination Discharge Disposition: Home or Self Care 06/21/2017 8:00 AM EST Office Visit [facility] [address] [place] [address] Temi Isabel APRN Pre-op examination (Primary Dx); Essential hypertension; Chronic atrial fibrillation (HCC); Mitral valve disease; Ulnar neuropathy at elbow, right 05/11/2017 2:30 PM EDT Office Visit [address] [phone] Shannan Guevara APRN Wrist sprain, left, initial encounter (Primary Dx); Injury of left hand, initial encounter; Fall, initial encounter 04/25/2017 11:13 AM EDT - 04/25/2017 11:59 PM EDT Hospital Encounter [facility] [place] [address] Essential hypertension; Screening for deficiency anemia Discharge Disposition: Home or Self Care 04/25/2017 10:15 AM EDT - 04/25/2017 11:12 AM EDT Hospital Encounter [facility] 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 [address] [address] Anders New MD Medication Refill 03/24/2017 Refill [facility] 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 Well adult exam (Primary Dx); DDD (degenerative disc disease), cervical; DDD (degenerative disc disease), lumbar; Mitral valve disease; Essential hypertension; Paroxysmal atrial fibrillation (HCC); Screening for hyperlipidemia; Screening for deficiency anemia; Encounter for screening for nutritional disorder; Screening for colon cancer 01/23/2017 Refill [facility] [address] [place] [address] Anders New MD Medication Refill 01/16/2017 11:21 AM EDT - 01/16/2017 11:59 PM EDT [place] [address] Anders New MD Chronic atrial fibrillation (HCC); Mitral valve disease Discharge Disposition: Home or Self Care 11/30/2016 1:30 PM EDT Office Visit [facility] H&[facility] [address] [place] [address] Anders New MD Chronic atrial fibrillation (HCC) (Primary Dx); Essential hypertension; Mitral valve disease 11/28/2016 Refill [facility] H&V NPT[facility]TT [address] [place] [address] Anders New MD Medication Refill 08/25/2016 Refill [facility] H&V [address] [address] Anders New MD Medication Refill 01/25/2016 Refill [facility] H&V [address] [address] Anders New MD Medication Refill 12/18/2015 Telephone [facility] H&V [address] [address] Anders New MD Cardiology Clearance (Left Total Knee Replacement) 11/12/2015 2:20 PM EDT Office Visit [facility] H[facility]V NPTFTT [address] [place] [address] Anders New MD Chronic atrial fibrillation (HCC) (Primary Dx); Essential hypertension 11/03/2015 Telephone SEP [facility] [address] [place] [address] Anders New MD Note 10/28/2015 Refill [facility] [address] [place] [address] Anders New MD Medication Refill 06/19/2015 Refill [facility] [address] [place] [address] Anders New MD Medication Refill 06/15/2015 2:00 PM EST Office Visit [facility] [address] [place] [address] Halley Mitchell APRN Chronic atrial fibrillation (HCC) (Primary Dx); Essential hypertension 06/10/[address] [facility] [address] [place] [address] Anders New MD Other 05/19/2015 Refill [facility] [place] [address] Anders New MD Medication Refill 12/29/2014 Telephone [facility] [address] [address] Anders New MD Visit Follow Up 12/22/2014 1:30 PM EDT Office Visit [facility] [address] [address] Anders New MD Chronic atrial fibrillation (HCC) (Primary Dx); Essential hypertension; Mitral valve disease 12/11/2014 Refill [facility] [place] [address] Anders New MD Medication Refill 11/14/2014 Refill [facility] [address] [address] Anders New MD Medication Refill 11/14/[address] [facility] [facility] [place] [address] Anders New MD Medication Refill 07/08/[address] [facility] [address] [facility] [place] [address] Anders New MD Medication Refill 06/18/[address] [facility] [place] [address] Anders New MD Appointment Needed 06/04/[address] [facility] [address] [address] Anders New MD Medication Refill 05/30/[address] [facility] [address] [address] Anders New MD Cardiology Clearance 04/15/[address] [facility] [address] [address] Anders New MD Medication Refill 02/26/[address] [facility] [address] [address] Anders New MD Cardiology Clearance 02/26/2014 2:15 PM EDT - 02/26/2014 3:30 PM EDT Surgery [facility]TT [place] [address] Ronaldo Briceno MD CARPAL TUNNEL RELEASE ENDOSCOPIC 02/26/2014 12:32 PM EDT - 02/26/2014 4:13 PM EDT Hospital Encounter [facility] SAME DAY SURGERY [address] [place] [address] Ronaldo Briceno MD Discharge Disposition: Home or Self Care 02/25/2014 10:30 AM EDT - 02/25/2014 11:59 PM EDT Hospital Encounter FTT PRE-ADMIT TESTING [place] [address] Pat, Ftt Preoperative examination, unspecified (Primary Dx); Cubital tunnel syndrome on right Discharge Disposition: Home or Self Care 02/03/2014 12:57 PM EDT - 02/03/2014 11:59 PM EDT Hospital Encounter [facility] [address], [place] [address] Alvarez Jaimes MD Shoulder pain Discharge Disposition: Home or Self Care 01/27/[address] [facility] [address] [facility] [place] [address] Anders New MD Medication Refill 01/13/2014 3:19 PM EDT - 01/13/2014 11:59 PM EDT Hospital Encounter [facility] [address] [place] [address] Alvarez Jaimes MD Brachial neuritis or radiculitis NOS Discharge Disposition: Home or Self Care 12/10/2013 2:41 PM EDT - 12/10/2013 11:59 PM EDT Hospital Encounter [facility] ECHO [address] [facility] [address] Anders New MD Atrial fibrillation (HCC) Discharge Disposition: Home or Self Care 11/21/2013 4:00 PM EDT Office Visit [facility] [address] [facility] [place] [address] Anders New MD Atrial fibrillation (HCC) (Primary Dx); HTN (hypertension); Mitral valve disease 11/15/[address] [facility] [address] [facility] [place] [address] Anders New MD Medication Refill 09/16/[address] [facility] [address] [facility] [place] [address] Anders New MD Medication Refill 05/14/[address] [facility] [address] [place] [address] Anders New MD Medication Refill 04/22/2013 [place] [address] Anders New MD Appointment Needed 04/11/[address] [address] Anders New MD Medication Refill 08/30/[address] [phone] Anders New MD Medication Refill 08/17/2012 [place] [address] Anders New MD Medication Refill 07/04/2012 12:03 PM EST - 07/04/2012 11:59 PM EST [place] [address] Anders New MD A-fib (HCC); HTN (hypertension) Discharge Disposition: Home or Self Care 07/04/2012 1:00 PM [place] [address] Anders New MD Atrial fibrillation (HCC) (Primary Dx); HTN (hypertension); Mitral valve disease 06/28/2012 [place] [address] Anders New MD 05/21/2012 Orders Only [address] [address] Anders New MD A-fib (HCC); HTN (hypertension) 04/16/2012 Orders Only [address] [phone] Estrella Fernandes, RMA A-fib (HCC); HTN (hypertension) 04/16/2012 Telephone [facility] [address] [facility] [place] [address] Anders New MD Medication Refill 09/02/2011 12:00 PM EST - 09/02/2011 12:42 PM EST Surgery [facility]G [address] [place] [address] Yuli Fermin MD KNEE ARTHROSCOPY MENISCECTOMY/REPAIR (ALSO COVERS ARTHROSCOPIC INCISION AND DRAINAGE/DEBRIDEMENT) 09/02/2011 10:59 AM EST - 09/02/2011 4:07 PM EST Hospital Encounter [facility] [address] [place] [address] Yuli Fermin MD Discharge Disposition: Home or Self Care 08/31/2011 3:30 PM EST - 08/31/2011 11:59 PM EST Hospital Encounter [facility] LABORATORY [address] [place] [address] Pre-operative cardiovascular examination, high risk surgery Discharge Disposition: Home or Self Care 08/31/2011 3:15 PM EST - 08/31/2011 3:29 PM EST Hospital Encounter [facility] EKG [address] [place] [address] IUD check up Discharge Disposition: Home or Self Care 08/15/2011 Refill [facility] [address] [facility] [place] [address] Anders New MD Medication Refill 08/10/2011 4:35 PM EST - 08/10/2011 11:59 PM EST Hospital Encounter [facility]G LAB BALA PROCESSING [facility] [place] [address] Joint pain Discharge Disposition: Home or Self Care 04/18/2011 3:00 PM EDT - 04/18/2011 11:59 PM EDT Hospital Encounter [facility] [address] [place] [address] Yuli Vogel MD Lumbago Discharge Disposition: Home or Self Care 11/06/2010 11:04 PM EDT - 11/10/2010 4:30 PM EDT Hospital Encounter EDG 7D ORTHO [facility] [place] [address] Veronique Rehman MD Larkin, John J, MD Closed fracture of olecranon process of ulna; Closed fracture of multiple ribs, unspecified; Open wound of elbow, complicated Discharge Disposition: Home Health Care Svc 11/07/2010 1:00 PM EDT - 11/07/2010 3:00 PM EDT Surgery EDG PERIOP [facility] [place] [address] Yuli Fermin MD ELBOW ARTHROTOMY 07/19/2010 1:02 PM EST - 07/19/2010 11:59 PM EST Hospital Encounter [facility] VASCULAR LAB [facility] [place] [address] Sushil Reid Leg pain Discharge Disposition: Home or Self Care 05/05/2010 3:30 PM EDT - 05/05/2010 11:59 PM EDT Hospital Encounter EDG D-WING XRAY [facility] [place] [address] Fall Discharge Disposition: Home or Self Care 10/27/2009 Orders Only [facility] [address] [facility] [address] Scottie Elkins MD 10/19/2009 3:12 PM EDT - 10/19/2009 3:58 PM EDT Emergency HST EPIC CON UNK COV Physicians, [facility] Emergency Josep Krueger MD 05/22/2009 12:01 AM EST - 05/22/2009 11:59 PM EST Hospital Encounter HST EPIC CON UNK EDG Alvarez Jaimes MD 01/19/2009 11:21 AM EDT - 01/19/2009 11:59 PM EDT Hospital Encounter HST IMAGING DREW EDG Alvarez Jaimes MD 11/06/2008 Orders Only [facility] [address] [facility] [address] Arnulfo Sequeira MD 12/23/2007 12:46 AM EDT [...] EST Emergency HST EPIC CON UNK COV Yvette Piña MD 11/21/2000 3:32 AM EDT - 11/21/2000 2:55 PM EDT Hospital Encounter HST ESDS FTT Generic, Historical Provider 11/02/1999 11:06 AM EDT - 11/03/1999 5:47 PM EDT Hospital Encounter HST TCU [place] Varma MD [facility], 01/10/1999 6:37 PM EDT - 01/10/1999 7:48 [...] HST EPIC CON UNK EDG Ralph Reyna Tracy 03/29/1993 6:04 AM EDT - 03/29/1993 11:59 PM EDT Hospital Encounter HST EPIC CON UNK EDG Jean Paul Reynadayo Molina 03/26/1993 9:30 AM EDT - 03/26/1993 10:10 AM EDT Hospital Encounter HST 4CS Ralph Reyna E 03/14/1992 9:44 AM EDT - 03/14/1992 11:59 [...] Dr. Cotton Coronary artery disease invo lving benton coronary artery of benton heart with angina pectoris 10/16/2019 Overview (10/16/2019): [...] 2016 DDD (degenerative disc disease), lumbar 02/28/20 Paroxysmal atrial fibrillation 07/04/2012 Overview (11/28/2017): Echo [...] (10/15/2019): Added automatically from request for surgery [id number] Acute febrile illness 10/13/20192023 Immunizations Immunization Administration Dates Next Due Influenza Virus Vaccine Quadrivalant, Flublok Zoster Recombinant 09/24/2020 04/21/2022 Family History Medical History Relation Name Comments Alcohol Abuse Sister 1 Anesth Problems Neg Hx Relation Name Status Comments Brother Alive Father Mother Sister 1 Sister 2 Alive Social History Smoking Status as of 01/22/2025 Tobacco Use Types Packs/Day Years Used Date Smoking Tobacco: Never Assessed [facility] Utilities Answer Date Recorded In [...] Date Recorded PHQ-2 Total Score 0 10/01/2023 [facility] - Occupational Stress [...] Lack of Transportation (Non-Medical) No 10/31/2019 [facility] IP Transportation [...] 1:45 PM EST Office [place] [address] Jona Chau MD [address] [place] [address] 11/07/2025 1:30 PM EDT Office Visit [facility] [address] [place] [address] 11/07/2025 2:00 PM EDT Office Visit [facility] [address] [place] [phone] Funmi Aldrich APRN [address] [place] [address] Medical Devices Implanted Type Area Digital Intern Device Identifier Shelf Expiration Date Model / Serial / Lot Visia Af Mri Vr Surescan - [id number] Implanted:Qty: 1 on 10/21/2019 by Radha Cotton MD at [facility] ICD MEDTRONIC:SHAWNA DRAKE [id number] / [id number] / Lead Pcng 62cm Rv Trplr Scr In Xtd-Retrac Hlx Eltrd Shahida Insl - [id number] Implanted:Qty: 1 on 10/21/2019 by Radha Cotton MD at [facility] Lead [employer]:SHAWNA Joseph SYS [id number] / [id number] / Valve Bioprosthesis Pericardial W/Termafix Process Mitral Perimount 29mm - [id number] Implanted:Qty: 1 on 10/17/2019 by Helder Ariza MD at [facility] N/A: Heart POLLACK LIFESCI 05/11/2023 [id number] / / [id number] Cup Actb Trident Ii Sz-F 56mm Clstr Scr 5hl Tritan Hap Prim - [id number] Implanted:Qty: 1 on 12/27/2023 by René Brown MD at [facility] Right: Hip CHELLY:ORTHOPE DICS [id number] 06/19/2028 702-04-56 F / / [id number] Insert O Degree Trident X 3 36mm Code F - [id number] Implanted:Qty: 1 on 12/27/2023 by René Brown MD at [facility] Right: Hip CHELLY:ORTHOPE DICS [id number] 07/13/2028 723-00-36 F / / [id number] Screw 6.5x25mm Trident Erick Ss Hex Thrd St Lpro Actb Hip - [id number] Implanted:Qty: 1 on 12/27/2023 by René Brown MD at [facility] Right: Hip CHELLY:ORTHOPE DICS [id number] 10/08/2028 6861-3460 / / [id number] Screw 6.5x25mm Trident Erick Ss Hex Thrd St Lpro Actb Hip - [id number] Implanted:Qty: 1 on 12/27/2023 by René Brown MD at [facility] Right: Hip CHELLY:ORTHOPE DICS [id number] 10/08/2028 7068-2893 / / [id number] Stem Sz7 50mm Ofst Accolade Ii Prim Recon Ti Plasm Lucas Ctd - [id number] Implanted:Qty: 1 on 12/27/2023 by René Brown MD at [facility] Right: Hip CHELLY:ORTHOPE DICS [id number] 07/31/2027 9164-0122 / / [id number] Head Fem V-40 36mm +2.5mm Nk Biolox Delta Cerm Tapr Prim Mod - [id number] Implanted:Qty: 1 on 12/27/2023 by René Brown MD at [facility] Right: Hip CHELLY:ORTHOPE DICS [id number] 07/15/2028 6570-0-53 6 / / [id number] Procedures Procedure Name Priority Date/Time Associated Diagnosis Comments GA REM INTERROG ICPMS <30 D PHYS/QHP Routine 01/10/2025 12:00 AM EDT Vector Remote Device GA INTERROGATION EVAL REMOTE </90 D 1/2/DIVISION MERCHANDISE MANAGER LD DFB Routine 01/09/2025 12:00 AM EDT Vector Remote Device GA REM INTERROG ICPMS <30 D PHYS/QHP Routine 12/10/2024 12:00 AM EDT Vector Remote Device EC ECHOCARDIOGRAM COMPLETE W DOPPLER AND COLOR FLOW MAPPING Routine 12/03/2024 2:12 PM EDT VT (ventricular tachycardia) (FORM[facility]LY [facility]) Healthcare maintenance Shortness of breath NM BONE SCAN WHOLE BODY Routine 12/03/2024 12:45 PM EDT Status post total hip replacement, right VECTOR REMOTE DEVICE Routine 11/21/2024 12:00 AM EDT Vector Remote Device XR HIP RIGHT AP LATERAL W AP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 ufku-FJQ-25-CM M54.50-Low back pain, ynlfwpixmth-XWQ-54-CM M79.18-Myalgia, other myhs-IPV-03-CM M53.3-Sacrococcygeal disorders, not elsewhere classified. COMPARISON: CT [...] the ordering clinician. us Jose Solorio MD IM MRI ORDERABLES Final Result * CT ANGIOGRAM LOWER EXTREMITY RIGHT W CONTRAST (06/26/2024 7:21 PM EST) Anatomical Region Laterality Modality Leg Computed Tomogra phy 06/26/2024 7:21 PM EST Impressions 06/27/2024 10:23 AM EST 1. Severe RIGHT lower extremity below knee peripheral vascular disease with three-vessel occlusion. Narrative 06/27/2024 10:[address] ANGIOGRAM LOWER EXTREMITY RIGHT W CONTRAST 06/26/2024 7:21 PM HISTORY: L97.575-Sei-vfpllciu chronic ulcer of unspecified part of right [...] RIGHT W CONTRAST 06/26/2024 7:21 PM HISTORY: L97.758-Nyz-ecmtjmtt chronic ulcer of unspecified part of rightlower [...] below knee peripheral vascular diseasewith three-vessel occlusion. us Dejon Capone MD [facility] CT ORDERABLES Final Result * CREATININE ISTAT (06/26/2024 7:00 PM EST) Creatinine-iST AT 1.2 0.6 - 1.3 mg/dL 06/26/2024 7:20 PM EST [facility] Blood BLOOD SPECIMEN / Unknown 06/26/2024 7:00 PM EST 06/26/2024 7:20 PM EST Dejon Capone MD POINT OF CARE TEST ORDERABLES Final Result [facility] [address] [place] [address] * XR LUMBAR SPINE AP LATERAL FLEXION AND EXTENSION (03/14/2024 2:33 PM EDT) Only the most recent of2 resultswithin the time period is included. Narrative [facility] - 03/14/2024 2:33 PM EDT Please see [...] VASCULAR ACCESS 02/12/2024 10:32 AM HISTORY: R60.0-Localized mwgvu-MHF-87-CM left worse than right lower extremity chronic [...] by ultrasound. Internal jugular vein accessed 4 Dominican micropuncture set with ultrasound guidance. 10 Dominican sheath placed over wire to right atrium [...] venotomy with manual compression. Procedure Note Dejon aCpone MD - 02/12/2024 IR VENOGRAM BILATERAL WITH IVUS, IR VENOGRAM INFERIOR VENA CAVA, IRULTRASOUND GUIDED VASCULAR ACCESS 02/12/2024 10:32 AM HISTORY: R60.0-Localized jyyrd-SES-98-CM left worse than right lowerextremity chronic edema [...] 4 Frenchmicropuncture set with ultrasound guidance. 10 Dominican sheath placed over wire to rightatrium fluoroscopically. [...] iliac vein widely patent with minimum cross-sectional [id number] sq mm. 3. Left external iliac vein [...] junction. No significant venousstenosis or occlusion demonstrated. us Dejon Capone MD IMG IR ORDERABLES [...] VASCULAR ACCESS 02/12/2024 10:32 AM HISTORY: R60.0-Localized pfpmf-ZTU-19-CM left worse than right lower extremity chronic [...] by ultrasound. Internal jugular vein accessed 4 Dominican micropuncture set with ultrasound guidance. 10 Dominican sheath placed over wire to right atrium [...] VASCULAR ACCESS 02/12/2024 10:32 AM HISTORY: R60.0-Localized drxbk-CXF-88-CM left worse than right lowerextremity chronic edema [...] 4 Frenchmicropuncture set with ultrasound guidance. 10 Dominican sheath placed over wire to rightatrium fluoroscopically. [...] iliac vein widely patent with minimum cross-sectional [id number] sq mm. 3. Left external iliac vein [...] venousstenosis or occlusion demonstrated. Dejon Capone MD IM IR ORDERABLES Final Result * TSH REFLEX (02/09/2024 4:23 PM EDT) Only the most recent of3 resultswithin the time period is included. TSH Reflex 0.864 0.270 - 4.200 mcIU/mL 02/10/2024 1:41 AM EDT [facility] Blood VENOUS BLOOD / Unknown Venipuncture / Unknown 02/09/2024 4:23 PM EDT 02/09/2024 4:24 PM EDT Narrative [facility] - 02/10/2024 1:41 AM EDT Ingestion of daljit doses of biotin (>5 mg/day) taken within 8 hours of drawing blood sample can interfere with this immunoassay test. October Edd Carlee THOMASN CHEMISTRY ORDERABLES Final Result [facility] [address] [place] [address] * LIPID SCREEN (02/09/2024 4:23 PM EDT) Only the most recent of3 resultswithin the time period is included. Cholesterol 109 <200 mg/dL 02/10/2024 1:41 AM EDT [facility] Comment: < 200 Desirable 200 - 239 Borderline High >= 240 High Triglyceride 82 <150 mg/dL 02/10/2024 1:41 AM EDT [facility] Comment: < 150 Normal 150 - 199 Borderline High 200 - 499 High >= 500 Very High HDL 42 >=40 mg/dL 02/10/2024 1:41 AM EDT [facility] Comment: > 60 Optimal 40 - 60 Acceptable < 40 Low LDL Calculated 51 <100 mg/dL 02/10/2024 1:41 AM EDT [facility] Comment: < 100 Optimal 100 - 129 Near or above optimal 130 - 159 Borderline High 160 - 189 High >= 190 Very High Non-HDL-C Calculated 67 <=129 mg/dL 02/10/2024 1:41 AM EDT [facility] Comment: <130 Desirable 130-159 Above Desirable 160-189 Borderline High 190-219 High >= 220 Very High Fasting Specimen? No None 024 1:41 AM EDT [facility] Blood VENOUS BLOOD / Unknown Venipuncture / Unknown 02/09/2024 4:23 PM EDT 02/09/2024 4:24 PM EDT October Edd Carlee ROBERTSON CHEMISTRY ORDERABLES Final Result [facility] [address] [place] [address] [facility] [address] [place] [address] * (ABNORMAL) POCT EKG (01/29/2024 2:14 PM EDT) Only the most recent of2 resultswithin the time period is included. 01/29/2024 2:14 PM EDT Impressions SEP OFFICE - 01/29/2024 2:14 PM EDT Suspect underlying AF, demand V pacing, similar to previous ECGs us Vernell Bejarano DRY HEAT ROOM ATTENDANT POINT OF CARE CARDIOLOGY Fi nal Result Performing Organization Address [facility] de Phone Number SEP OFFICE * [...] made for record keeping purposes. us René Brown MD IMG FLUOROSCOPY ORDERAB LES Final Result Performing Organization Address [facility] de Phone Number PACS * XR HIP INTRAOPERATIVE RIGHT 2 [...] AIRWAY PLACEMENT (12/27/2023 12:22 PM EDT) Narrative [facility] - 12/27/2023 12:22 PM EDT Evens Moe CRNA 12/27/2023 12:38 PM Intraop Airway Placement: Date/Time: [...] Unchanged Insertion attempts: 1 : Waits. Title: ICU CLERK Ventilation: BMV lidocaine 4 % ([id number]) laryngotracheal solution - Laryngotracheal 4 mL - 12/27/2023 12:22:00 PM: us Howard Acuña DO GA ANESTHESIA Final Result [facility] [address] [place] [address] * (ABNORMAL) COMPREHENSIVE METABOLIC PANEL (12/25/2023 3:57 [...] 5:07 PM EDT [facility] Anion Gap 14 7 - 16 mmol/L 12/25/2023 5:07 PM EDT [facility] Calcium 9.6 8.8 - 10.4 mg/dL 12/25/2023 5:07 PM EDT [facility] Glucose Lvl 113(H) 70 - 99 mg/dL 12/25/2023 5:07 PM EDT [facility] BUN 11 8 - 23 mg/dL 12/25/2023 5:07 PM EDT [facility] Creatinine 0.91 0.67 - 1.30 mg/dL 12/25/2023 5:07 PM EDT [facility] Albumin 4.3 3.2 - 4.6 gm/dL 12/25/2023 5:07 PM EDT [facility] Total Protein 7.5 6.4 - 8.3 gm/dL 12/25/2023 5:07 PM EDT [facility] Bili Total 1.2 0.2 - 1.4 mg/dL 12/25/2023 5:07 PM EDT [facility] ALT 17 <=41 U/L 12/25/2023 5:07 PM EDT [facility] AST 23 <=40 U/L 12/25/2023 5:07 PM EDT [facility] Alk Phos 114 40 - 129 U/L 12/25/2023 5:07 PM EDT [facility] eGFR (CKD-EPIcr 2020) 92 >=60 mL/min/1.7 3 m2 12/25/2023 5:07 PM EDT [facility] Comment:Estimated GFR was ca lculated using the CKD-EPIcr (2020) equation refit without race. The equation is recommended by the National Kidney Foundation - [place] [employer] of Nephrology Task Force. Blood VENOUS BLOOD / Unknown Venipuncture / Unknown 12/25/2023 3:57 PM EDT 12/25/2023 4:01 PM EDT René Brown MD CHEMISTRY ORDERABLES Fi nal Result [facility] [address] [facility] [address] [place] [address] [facility] [address] [place] [address] * XR HIP RIGHT 4 VIEW (11/23/2023 2:31 PM EDT) Narrative [facility] - 11/23/2023 2:34 PM EDT Please see physician's note from office encounter for x-ray imaging result René Brown MD IMG DIAGNOSTIC IMAGING ORDERABLES [...] -Patient is okay to be discharged today [facility] Procedure Details Procedural indication: abnormal nuke Procedural consent: Risks and benefits reviewed directly with patient prior to the procedure Procedural details: Patient was prepped and draped in normal sterile fashion the right radial site was anesthetized using lidocaine. The right radial artery was accessed using Seldinger technique and a 6 Dominican glide sheath was advanced into the radial [...] CARDIAC CATH ORDERABLES Edited Result - Final [facility] * STERILE SUPPLY TECHNICIAN HEMODYNAMIC WAVEFORMS (10/03/2023 12:09 PM EDT) Only the most recent of3 resultswithin the time period is included. 10/03/2023 12:0 9 PM EDT us Vinnie Crowell MD CARDIAC CATH ORDERABLES E dited Result - Final Performing Organization Address [facility] Hospital/ZIP Co de Phone Number [facility] [address] [place] [address] * ECG AND WAVEFORMS - TELEMETRY (10/03/2023 7:05 AM EDT) Only the most recent of36 resultswithin the time period is included. ECG INTERPRET Ventricular Paced [facility] 10/03/2023 7:05 AM EDT Narrative [facility] - 10/03/2023 8:15 AM EDT /AB/HICUITY/ROUTINE QRS 0.20 QT 0.48 See Clinical Report link for waveform capture us Unknown Provider POINT OF CARE CARDIOLOGY Final Result Performing Organization Address [facility] Co de Phone Number [facility] [address] [place] [address] * NM MYOCARDIAL PERFUSION SPECT STRESS AND [...] risk for cardiac events. us Amy Martinez DRY HEAT ROOM ATTENDANT IMG NM CARDIAC ORDERABLES Coco l Result * ST STRESS TEST LEXISCAN (10/02/2023 10:51 AM EDT) Anatomical Region Laterality Modality Cardiac Stress T esting 10/02/2023 10:2 6 AM EDT Impressions 10/02/2023 3: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 Evangelina Mcclure APRN [facility] VASCULAR ORDERABLES Fi nal Result * (ABNORMAL) CBC (10/01/2023 7:26 AM EDT) Only the most recent of12 resultswithin the time period is included. WBC 8.9 3.7 - 10.3 x10(3)/mcL 10/01/2023 7:51 AM EDT [facility] [employer] RBC 4.56(L) 4.60 - 6.10 x10(6)/mcL 10/01/2023 7:51 AM EDT [facility] [employer] Hgb 14.6 13.7 - 17.5 g/dL 10/01/2023 [...] 13.3 <=14.9 % 10/01/2023 7:51 AM EDT [facility] Platelet 203 155 - 369 x10(3)/mcL 10/01/2023 7:51 AM EDT [facility] MPV 10.0 8.8 - 12.5 fL 10/01/2023 7:51 AM EDT [facility] Blood VENOUS BLOOD / Unknown Venipuncture / Unknown 10/01/2023 7:26 AM EDT 10/01/2023 7:42 AM EDT us Mayank Romero MD HEMATOLOGY ORDERABLES Final R esult [facility] [address] [facility] , [place] [address] * MAGNESIUM LEVEL (10/01/2023 7:26 AM EDT) Only the most recent of4 resultswithin the time period is included. Magnesium 2.2 1.6 - 2.4 mg/dL 10/01/2023 8:17 AM EDT [facility] Blood VENOUS BLOOD / Unknown Venipuncture / Unknown 10/01/2023 7:26 AM EDT 10/01/2023 7:42 AM EDT us Mayank Romero MD CHEMISTRY ORDERABLES Final Re sult [facility] [address] [facility], [place] [address] * TROPONIN-T HIGH SENSITIVITY 2HR (09/30/2023 5:08 PM EDT) Only the most recent of2 resultswithin the time period is included. bs-dQyumfmzt-B 2HR 12 <22 ng/L 09/30/2023 5:28 PM EDT [facility] Comment:See the website [employer]ungolow for rule out [place] care pathway, conditions other than AMI that can cause elevated hs cTnT, and comparison of values from the 4th and 5th generation David tests. https://[employer]org/topic/clinical-answers/gnt-62071658/cpm-203 96502 hs-cTnT 2Hr Delta from Baseline 0 <4 ng/L 09/30/2023 5:28 PM EDT [facility] Blood VENOUS BLOOD / Unknown Venipuncture / Unknown 09/30/2023 5:08 PM EDT 09/30/2023 5:10 PM EDT Narrative [facility] - 09/30/2023 5:28 PM EDT Ingestion of daljit doses of biotin (>5 mg/day) taken within 8 hours of drawing blood sample can interfere with this immunoassay test. Andrae Tejada APRN CHEMISTRY ORDERABLES Final Result [facility] [address] [place] [address] * TROPONIN-T HIGH SENSITIVITY BASELINE W/ REFLEX (09/30/2023 3:28 PM EDT) Only the most recent of5 resultswithin the time period is included. xt-lOecatwkf-A 12 <22 ng/L 09/30/2023 3:48 PM EDT [facility] Comment:See the website [employer]ung[employer]ow for rule out [place] care pathway, conditions other than AMI that can cause elevated hs cTnT, and comparison of values from the 4th and 5th generation David tests. https://[facility].org/topic/clinical-answers/gnt-88146891/cpm-203 98218 Blood VENOUS BLOOD / Unknown Venipuncture / Unknown 09/30/2023 3:28 PM EDT 09/30/2023 3:30 PM EDT Narrative [facility] - 09/30/2023 3:48 PM EDT Ingestion of daljit doses of biotin (>5 mg/day) taken within 8 hours of drawing blood sample can interfere with this immunoassay test. [employer] DRY HEAT ROOM ATTENDANT CHEMISTRY ORDERABLES Final Result Performing Organization Address City/[facility]/ZIP Co de Phone Number [facility] [address] [place] [address] * POTASSIUM REPEAT (09/30/2023 3:28 PM EDT) Potassium 4.9 3.5 - 5.0 mmol/L 09/30/2023 3:43 PM EDT [facility] Blood VENOUS BLOOD / Unknown Venipuncture / Unknown 09/30/2023 3:28 PM EDT 09/30/2023 3:30 PM EDT [employer] DRY HEAT ROOM ATTENDANT CHEMISTRY ORDERABLES Final Result Performing Organization Address City/[facility]/ZIP Co de Phone Number [facility] [address] [place] [address] * XR CHEST AP PORTABLE (09/30/2023 3:24 [...] of the ordering clinician. Andrae Tejada APRN [facility] Final Result * (ABNORMAL) BLOOD GAS, VENOUS [...] mmol/L 09/30/2023 3:02 PM EDT [facility] O2 Sat. Venous 87.7(H) 40.0 - 70.0 % 09/30/2023 3:02 PM EDT [facility] [employer] Inspired O2 RA 09/30/2023 3:02 PM EDT [facility] Blood VENOUS BLOOD / Unknown Venipuncture / Unknown 09/30/2023 2:53 PM EDT 09/30/2023 2:58 PM EDT [facility] [employer] DRY HEAT ROOM ATTENDANT CHEMISTRY ORDERABLES Final Result Performing Organization Address City/[facility]/ZIP Co de Phone Number [facility] [address] [facility], [place] [address] * (ABNORMAL) NT PROBNP (09/30/2023 2:53 PM EDT) Only the most recent of3 resultswithin the time period is included. NT Pro-BNP 701(H) <=229 pg/mL 09/30/2023 3:14 PM EDT [facility] Blood VENOUS BLOOD / Unknown Venipuncture / Unknown 09/30/2023 2:53 PM EDT 09/30/2023 2:54 PM EDT Narrative [facility] - 09/30/2023 3:14 PM EDT An NT pro-BNP level less than 300 pg/mL in any patient, regardless of age, effectively rules out acute CHF with a 99% negative predictive value. Ingestion of daljit doses of biotin (>5 mg/day) taken within 8 hours of drawing blood sample can interfere with this immunoassay test. [employer] CHEMISTRY ORDERABLES Final Result Performing Organization Address [facility]/ZIP Co de Phone Number [facility] [address] [place] [address] * EK EKG 12 LEAD (09/30/2023 1:57 PM EDT) Only the most recent of12 resultswithin the time period is included. Anatomical Region Laterality Modality Electrocardiogra phy 09/30/2023 2:04 PM EDT Impressions 09/30/2023 5: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 Electronically Signed On 09-30-2023 17:48:29 EDT by Mike Mullen MD Narrative Procedure Note Blake Mullen MD - 09/30/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 Electronically Signed On 09-30-2023 17:48:29 EDT by Mike Mullen MD Amber Fuller MD IMG ECG ORDERABLES Final Re sult * [facility] LOWER EXTREMITY ARTERIAL PHYSIOLOGICAL (05/31/2023 3:00 PM EST) Only the most recent of2 resultswithin the time period is included. Anatomical Region Laterality Modality Vascular, Leg Vascular Imaging 05/31/2023 2:13 PM EST Impressions 05/31/2023 5:56 PM EST Conclusions * Pressure gradients at the ankles indicate bilateral fbyh-zu-wuqompwp tibial disease. Mildly dampened PVRs at calf [...] Pressure gradients at the ankles indicate bilateral rbqd-eo-cdnwxwqw tibial disease. Mildly dampened PVRs at calf [...] in the bilateral first digits. Andreina Stephens APRN [facility] VASCULAR ORDERABLES Final Result * CREATININE (01/09/2023 1:55 PM EDT) Creatinine 0.81 0.67 - 1.30 mg/dL 01/09/2023 2:22 PM EDT [facility] eGFR (CKD-EPIcr 2020) 97 >=60 mL/min/1.7 3 m2 01/09/2023 2:22 PM EDT [facility] Comment:Estimated GFR was ca lculated using the CKD-EPIcr (2020) equation refit without race. The equation is recommended by the National [employer] - [place] [employer] Neph[employer] Task Force. Blood VENOUS BLOOD / Unknown Venipuncture / Unknown 01/09/2023 1:55 PM EDT 01/09/2023 1:55 PM EDT Louis Yadav MD CHEMISTRY ORDERABLES Final Resu lt [facility] [address] [address] * MRI LUMBAR SPINE W [...] 01/09/2023 12:59 PM CLINICAL HISTORY: M54.16-Radiculopathy, lumbar wivbvy-LUP-08-CM. COMPARISON: 09/25/2017, 10/15/2021 PROCEDURE COMMENTS: Multiplanar multiecho [...] 01/09/2023 12:59 PM CLINICAL HISTORY: M54.16-Radiculopathy, lumbar typzvz-NZA-52-CM. COMPARISON: 09/25/2017, 10/15/2021 PROCEDURE COMMENTS: Multiplanar multiecho [...] on this study. Yung Hunter M.D. Diplomate, [place] [employer] Electrodiagnostic [employer] Narrative SEP OFFICE [...] 10/15/2021 3:01 PM CLINICAL HISTORY: M54.16-Radiculopathy, lumbar uvnyiv-XFN-69-CM. COMPARISON: 09/25/2017 MR lumbar spine PROCEDURE COMMENTS: [...] 10/15/2021 3:01 PM CLINICAL HISTORY: M54.16-Radiculopathy, lumbar nitvlx-OAA-74-CM. COMPARISON: 09/25/2017 MR lumbar spine PROCEDURE COMMENTS: [...] hypertrophy. Moderate to severe narrowing of left Y0ubfdmh foramen and moderate narrowing of right L4 [...] 2:56 PM CLINICAL HISTORY: M25.562-Pain in left xwmo-GQP-25-CM G89.29-Other chronic enks-QBX-31-CM Z96.659-Presence of unspecified artificial knee jrtcz-VFU-88-CM COMPARISON: None. PROCEDURE COMMENTS: XR KNEE LEFT AP LATERAL AND AXIAL FINDINGS: No evidence of knee fracture or malalignment. No significant effusion. Status post knee replacement with intact prosthesis. Procedure Note Chilo Evans MD - 07/12/2021 XR KNEE LEFT AP LATERAL AND AXIAL, 07/12/2021 2:56 PM CLINICAL HISTORY: M25.562-Pain in left lqqf-LYF-09-CM G89.29-Other chronic wjer-RSZ-92-CM Z96.659-Presence of unspecified artificial knee ufmcx-EQK-18-CM COMPARISON: None. PROCEDURE COMMENTS: XR KNEE LEFT AP LATERAL AND AXIAL FINDINGS: No evidence of knee fracture or malalignment. No significanteffusion. Status post knee replacement with intact prosthesis. IMPRESSION: No acute abnormality of the knee. - Note: Radiology results need to be interpreted within a comprehensiveclinical context. If you have questions about the radiology report, please contactthe office of the ordering clinician. Gaye Marie MD IMG DIAGNOSTIC IMAG ING ORDERABLES Final Result * (ABNORMAL) HEMOGLOBIN A1C (08/11/2020 1:43 PM EST) Hgb A1C 5.7(H) 4.2 - 5.6 % 08/11/2020 10:46 PM EST [facility] [employer] Est. Avg Glucose 117 mg/dL 08/11/2020 10:46 PM EST [facility] [employer] Blood VENOUS BLOOD / Unknown Venipuncture / Unknown 08/11/2020 1:43 PM EST 08/11/2020 1:46 PM EST Narrative [facility] [employer] - 08/11/2020 10:46 PM EST REFERENCE RANGE: Normal: 4.0-5.6% Pre-diabetes: 5.7-6.4% Provisional diagnosis of diabetes: >6.4% Hgb F>10% and anything which shortens red cell survival, such as hemolytic anemia, or unstable hemoglobin variants such as HbSS, HbSC, or HbCC, will lower the HbA1c value associated with a given level of glycemic control. us Helder Yung MD CHEMISTRY ORDERABLES Final Res ult [facility] [address] [place] [address] , [address] [place] [phone] * XR CHEST PA AND LATERAL (10/28/2019 [...] Sharifa 10/23/2019 9:01 AM EDT [facility] UA Appear Turbid(A) Clear 10/23/2019 9:01 AM EDT [facility] UA Glucose Negative Negative mg/dL 10/23/2019 9:01 AM EDT [facility] UA Ketones Trace (5 mg/dL)(A) Negative mg/dL 10/23/2019 9:01 AM EDT [facility] UA Blood Large(A) Negative 10/23/2019 9:01 AM EDT [facility] UA pH 6.0 5.0 - 8.0 pH 10/23/2019 9:01 AM EDT [facility] UA Protein 100(A) Negative mg/dL 10/23/2019 9:01 AM EDT [facility] UA Urobilinogen 2.0(A) <=1 mg/dL 0 9:01 [...] 9:01 AM EDT [facility] Comment:Reference range elvin d for random specimens [...] 10/23/2019 9:01 AM EDT [facility] UA Bacteria 3+(A) Negative /HPF 10/23/2019 9:01 AM EDT [facility] UA Gran Cast 3(H) <=0 /LPF 10/23/2019 9:01 AM EDT [facility] UA Trans Epi <1(H) <=0 /HPF 10/23/2019 9:01 AM EDT [facility] Urine URINE SPECIMEN OBTAINED VIA INDWELLING URINARY CATHETER / Unknown 10/23/2019 8:36 AM EDT 10/23/2019 8:44 AM EDT Helder Ariza MD URINE ORDERABLES Final Result Performing Organization Address [facility] de Phone Number [address] , [place] [address] * POTASSIUM WHOLE BLOOD (10/22/2019 11:57 PM EDT) Only the most recent of16 resultswithin the time period is included. K-WB 3.9 3.5 - 5.0 mEq/L 10/23/2019 12:10 AM EDT [facility] Blood BLOOD SAMPLE TAKEN FROM CENTRAL LINE / Unknown Venipuncture / Unknown 10/22/2019 11:57 PM EDT 10/23/2019 12:08 AM EDT Helder Ariza MD CHEMISTRY ORDERABLES Final Res ult Performing Organization Address [facility] de Phone Number [facility] , [place] [address] * (ABNORMAL) POC OPEN HEART PROFILE (10/21/2019 1:36 PM EDT) Only the most recent of20 resultswithin the time period is included. pH 7.37 7.37 - 7.44 pH 10/21/2019 1:38 PM EDT [facility] pCO2 45 32 - 45 mmHg 10/21/2019 1:38 PM EDT [facility] pO2 78(L) 80 - 100 mmHg 10/21/2019 1:38 PM EDT [facility] HCO3 25.0 20.0 - 29.0 mmol/L 10/21/2019 1:38 PM EDT [facility] TCO2 27 21 - 30 mmol/L 10/21/2019 1:38 PM EDT [facility] Base Excess -0.3 -2.8 - 2.3 mmol/L 10/21/2019 1:38 PM EDT [facility] O2 Sat 94.0(L) 95.0 - 97.0 % 10/21/2019 1:38 PM EDT [facility] Sodium 138 135 - 148 mmol/L 10/21/2019 1:38 PM EDT [facility] K-WB 4.1 3.5 - 5.3 mEq/L 10/21/2019 1:38 PM EDT [facility] Calcium Ionized 1.11(L) 1.12 - 1.32 mmol/L 10/21/2019 1:38 PM EDT [facility] Chloride 103 98 - 108 mmol/L 10/21/2019 1:38 PM EDT [facility] Glucose WB 187(H) 72 - 112 mg/dL 10/21/2019 1:38 PM EDT [facility] Lactic Acid 1.9(H) 1.0 - 1.7 mmol/L 10/21/2019 1:38 PM EDT [facility] Hgb 10.5(L) 13.5 - 17.1 g/dL 10/21/2019 1:38 PM EDT [facility] Hct 31.0(L) 39.0 - 52.0 % 10/21/2019 1:38 PM EDT [facility] Blood ARTERIAL BLOOD / Unknown 10/21/2019 1:36 PM EDT 10/21/2019 1:38 PM EDT us Helder Ariza MD POINT OF CARE TEST ORDERABLES Final Result [facility] [address] [place] [address] * INTERNAL CARDIOVERTER DEFIBRILLATOR (ICD) IMPLANT (10/21/2019 1:18 PM EDT) Narrative [facility] - 10/28/2019 9:16 AM EDT Successful single chamber ICD DFT testing at 15 J us Radha Cotton MD ELECTROPHYSIOLOGY ORDERA BLES Final Result Performing Organization Address [facility]/[employer] Co de Phone Number [facility] * INTRAOP AIRWAY PLACEMENT (10/21/2019 12:21 PM EDT) Narrative [facility] - 10/21/2019 12:21 PM EDT Valeria Beltrán, ICU CLERK 10/21/2019 12:21 PM Intraop Airway Placement: Airway type: Non-rebreather us Garfield Wilhelm MD [place] ANESTHESIA Final Re sult Performing Organization Address [facility] de Phone Number [facility] [address] [place] [id number] * (ABNORMAL) GLUCOSE METER POC (10/21/2019 8:06 AM EDT) Only the most recent of24 resultswithin the time period is included. [facility] Glucose Meter POC 125(H) 70 - 100 mg/dL 10/21/2019 8:06 AM EDT [facility] Sample Type Capillary 10/21/2019 8:06 AM EDT [facility] Patient Status Non-Critical Patient 10/21/2019 8:06 AM EDT [facility] Blood BLOOD SPECIMEN / Unknown 10/21/2019 8:06 AM EDT 10/21/2019 8:06 AM EDT us Helder Ariza MD POINT OF CARE TEST ORDERABLES Final Result Performing Organization Address [facility] de Phone Number [facility] [address] [place] [address] * XR ABDOMEN AP (10/21/2019 8:01 AM [...] of2 resultswithin the time period is included. Lactic Acid 4.1(H) 0.5 - 1.9 mmol/L 10/21/2019 6:48 AM EDT [facility] [employer] Blood VENOUS BLOOD / Unknown Venipuncture / Unknown 10/21/2019 6:18 AM EDT 10/21/2019 6:31 AM EDT us Michael Malloy MD (Ronny) CHEMISTRY ORDER PARISH Final Result Performing Organization Address [facility]/[employer] de Phone Number [employer] [address] [facility] , [place] [address] * (ABNORMAL) PARTIAL THROMBOPLASTIN TIME (10/21/2019 6:18 AM EDT) Only the most recent of2 resultswithin the time period is included. PTT 23.5(L) 26.0 - 36.4 second(s) 10/21/2019 6:47 AM EDT [employer] Comment: Therapeutic range for unfractionated heparin: 53.0 [...] AM EDT us Michael Malloy MD (Ronny) HEMATOLOGY ORDE RABLES Final Result Performing Organization Address [facility] de Phone Number [employer] [address] [facility] , [address] [place] [phone] * PHOSPHORUS LEVEL (10/21/2019 6:18 AM EDT) Pathologist [facility] Phosphorus 4.0 2.5 - 4.5 mg/dL 10/21/2019 7:03 AM EDT [employer] Blood VENOUS BLOOD / Unknown Venipuncture / Unknown 10/21/2019 6:18 AM EDT 10/21/2019 6:31 AM EDT Michael Malloy MD (Ronny) CHEMISTRY ORDER PARISH Final Result Performing Organization Address City/[facility]/[employer] [employer] de Phone Number [employer] [address] [facility] , [place] [address] * (ABNORMAL) DIFFERENTIAL (10/20/2019 4:08 AM EDT) Only the most recent of5 resultswithin the time period is included. Segs Percent 80 % 10/20/2019 5:06 AM EDT [facility] Lymph Percent 9 % 10/20/2019 5:06 AM EDT [facility] Clare Percent 11 % 10/20/2019 5:06 AM EDT [facility] Neut # 13.6(H) 1.8 - 7.7 x10(3)/mcL 10/20/2019 5:06 AM EDT [facility] Lymph # 1.5 0.6 - 4.8 x10(3)/mcL 10/20/2019 5:06 AM EDT [facility] Clare # 1.9(H) 0.0 - 1.3 x10(3)/mcL 10/20/2019 5:06 AM EDT [facility] Blood VENOUS BLOOD / Unknown Venipuncture / Unknown 10/20/2019 4:08 AM EDT 10/20/2019 4:15 AM EDT Helder Ariza MD HEMATOLOGY ORDERABLES Final Re sult Performing Organization Address [facility]/[employer] [employer] de Phone Number [facility] [employer] [employer] [address] [place] [address] , [place] [phone] * O2 SAT - MIXED VENOUS (10/19/2019 11:54 PM EDT) Only the most recent of4 resultswithin the time period is included. O2 Sat Mixed Venous 48.3 40.0 - 70.0 % 10/20/2019 12:07 AM EDT [facility] [employer] Blood VENOUS BLOOD / Unknown Venipuncture / Unknown 10/19/2019 11:54 PM EDT 10/20/2019 12:03 AM EDT Helder Ariza MD CHEMISTRY ORDERABLES Final Res ult Performing Organization Address [facility]/[employer] [employer] de Phone Number [facility] [employer] [employer] [address] [place] [address] , [place] [address] * (ABNORMAL) POC OPEN HEART WHOLE BLOOD GLUCOSE (10/19/2019 12:48 PM EDT) Only the most recent of2 resultswithin the time period is included. Glucose WB 132(H) 72 - 112 mg/dL 10/19/2019 12:50 PM EDT [facility] Blood BLOOD SPECIMEN / Unknown 10/19/2019 12:48 PM EDT 10/19/2019 12:50 PM EDT us Helder Ariza MD POINT OF CARE TEST [place] [address] * CORTISOL (10/19/2019 5:18 AM EDT) Cortisol 8.56 mcg/dL 10/19/2019 6:2 2 AM EDT [employer] Blood ARTERIAL BLOOD / Unknown Venipuncture / Unknown 10/19/2019 5:18 AM EDT 10/19/2019 5:36 AM EDT Narrative [employer] - 10/19/2019 6:22 AM EDT AM: 4.82 [...] sample can interfere with this immunoassay test. us Dejon Osorio DRY HEAT ROOM ATTENDANT CHEMISTRY ORDERABL ES Final Result [employer] [address] [place] [address] DR, [place] [address] * PLATELETS REQUEST (10/18/2019 2:35 AM EDT) Product Code [id number] PSYCHIATRIC BLOOD BANK Unit Number [id number] [facility] Dispense Status TRANSFUSED [facility] Blood Expiration Date [facility] ISBT 128 Type [address] [facility] B[facility]OD [facility] BA CODING SYSTEM [id number] [facility] Blood Type (Unit) A POS [facility] Product Code [id number] PSYCHIATRIC BLOOD BANK Unit Number [id number] [facility] Dispense Status TRANSFUSED [facility] Blood Expiration Date [facility] BLOOD BANK ISBT 128 Type [address] [facility] BLOOD BANK BA CODING SYSTEM [id number] [facility] BLOOD BANK Blood Type (Unit) A POS [facility] BLOOD [facility] Blood 10/18/2019 2:35 AM EDT Helder Ariza MD BLOOD PRODUCT ORDERS Final Res ult [facility] BLOOD BANK [address] [place] [address] * FFP/PLASMA REQUEST (10/18/2019 2:35 AM EDT) Only the most recent of2 resultswithin the time period is included. Product Code C1992L16 PSYCHIATRIC BLOOD BANK Unit Number [id number] [facility] BLOOD BANK Dispense Status TRANSFUSED [facility] BLOOD [facility] Blood Expiration Date [facility] BLOOD BANK ISBT 128 Type [address] [facility] BLOOD BANK BA CODING SYSTEM [id number] [facility] BLOOD BANK Blood Type (Unit) A POS [facility] BLOOD [facility] Product Code [id number] PSYCHIATRIC BLOOD BANK Unit Number [id number] [facility] BLOOD BANK Dispense Status TRANSFUSED [facility] BLOOD BANK Blood Expiration Date [facility] BLOOD BANK ISBT 128 Type [address] [facility] BLOOD BANK BA CODING SYSTEM [id number] [facility] BLOOD BANK Blood Type (Unit) A POS [facility] BLOOD BANK Blood 10/18/2019 2:35 AM EDT Helder Ariza MD BLOOD PRODUCT ORDERS Final Res ult Performing Organization Address [facility] de Phone Number [facility] BLOOD [address] [address] * CRYOPRECIPITATE REQUEST (10/18/2019 2:35 AM EDT) Only the most recent of3 resultswithin the time period is included. Product Code [id number] PSYCHIATRIC BLOOD BANK Unit Number [id number] [facility] BLOOD BANK Dispense Status TRANSFUSED [facility] BLOOD [facility] Blood Expiration Date [facility] BLOOD BANK ISBT 128 Type [address] [facility] BLOOD [facility] BA CODING SYSTEM [id number] [facility] BLOOD BANK Blood Type (Unit) A POS [facility] BLOOD BANK Product Code [id number] PSYCHIATRIC BLOOD BANK Unit Number [id number] [facility] BLOOD BANK Dispense Status TRANSFUSED [facility] BLOOD [facility] Blood Expiration Date [facility] BLOOD BANK ISBT 128 Type [address] [facility] BLOOD BANK BA CODING SYSTEM [id number] [facility] BLOOD BANK Blood Type (Unit) A POS [facility] BLOOD BANK 10/18/2019 2:35 AM EDT Helder Ariza MD BLOOD PRODUCT ORDERS Final Res ult Performing Organization Address City/[facility] de Phone Number [facility] BLOOD [address] [address] * (ABNORMAL) HEMOGLOBIN AND HEMATOCRIT (10/17/2019 8:04 PM EDT) Hgb 10.1(L) 13.7 - 17.5 g/dL 10/17/2019 8:24 PM EDT [facility] Hct 29.1(L) 40.0 - 51.0 % 10/17/2019 8:24 PM EDT [facility] Blood ARTERIAL BLOOD / Unknown Venipuncture / Unknown 10/17/2019 8:04 PM EDT 10/17/2019 8:19 PM EDT Helder Ariza MD HEMATOLOGY ORDERABLES Final Re sult Performing Organization Address [facility] de Phone Number [facility] [employer] [address] [facility] , [address] [place] [phone] * PLATELET COUNT (10/17/2019 8:04 PM EDT) Only the most recent of2 resultswithin the time period is included. Pathologist [facility] Platelet 182 155 - 369 x10(3)/mcL 10/17/2019 8:24 PM EDT [facility] MPV 10.3 8.8 - 12.5 fL 10/17/2019 8:24 PM EDT [facility] Blood ARTERIAL BLOOD / Unknown Venipuncture / Unknown 10/17/2019 8:04 PM EDT 10/17/2019 8:19 PM EDT Helder Ariza MD HEMATOLOGY ORDERABLES Final Re sult Performing Organization Address [facility] de Phone Number [facility] [address] [facility] , [place] [address] * (ABNORMAL) FIBRINOGEN (10/17/2019 5:07 PM EDT) Pathologist [facility] Fibrinogen 595(H) 196 - 447 mg/dL 10/17/2019 5:24 PM EDT [facility] Blood VENOUS BLOOD / Unknown Venipuncture / Unknown 10/17/2019 5:07 PM EDT 10/17/2019 5:10 PM EDT Helder Ariza MD HEMATOLOGY ORDERABLES Final Re sult Performing Organization Address [facility] de Phone Number [facility] [address] [facility] , [place] [address] * STAPHYLOCOCCUS AUREUS SCREEN (10/17/2019 4:15 PM EDT) Staph aureus PCR Not Detected Not Detected 10/17/2019 7:04 PM EDT [facility] [place], [facility] MRSA PCR Not Detected Not Detected 10/17/2019 7:04 PM EDT [facility] [place], [facility] Swab BOTH ANTERIOR NARES / Unknown 10/17/2019 4:15 PM EDT 10/17/2019 5:14 PM EDT Narrative PREFERRED [facility], [facility] - 10/17/2019 7:04 PM EDT Staphylococcus aureus target DNA sequence is not detected. This qualitative assay is intended for the detection of Staphylococcus aureus proprietary sequences for the staphylococcal protein A (spa) gene, the gene for methicillin resistance (mecA), and the staphylococcal cassette chromosome mec (SCCmec) inserted into the SA chromosomal attB site. This assay utilizes real time PCR on the [employer] NET GeneXpert Infinity, and its performance has been verified by the [facility]. A negative result does not [...] has been developed and validated by the [facility] laboratory. Detailed methodology is available upon request. Helder Ariza MD MICROBIOLOGY - GENERAL ORDERAB LES Final Result [facility] [place], [address] , [place] [address] * TRANSFUSE CRYOPRECIPITATE (10/17/2019 3:59 PM EDT) [...] of10 resultswithin the time period is included. ACT+ 132 89 - 169 second(s) 10/17/2019 3:58 PM EDT [facility] Blood BLOOD SPECIMEN / Unknown 10/17/2019 3:41 PM EDT 10/17/2019 3:58 PM EDT Christ Soto MD POINT OF CARE TEST ORDERABLES Fi nal Result [facility] [address] [place] [address] * PATHOLOGY TISSUE REQUEST (10/17/2019 2:37 PM EDT) CASE REPORT Surgical Pathology Case: [id number] Authorizing Provider: Helder Ariza MD Collected: 10/17/2019 1437 Ordering Location: [facility] Received: 10/18/2019 1014 Pathologist: Osei Tyler MD Specimen: Mitral, mitral valve papillary muscle 10/21/2019 10:36 AM EDT [facility] 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 10/21/2019 10:36 AM EDT [facility] at 1036 EDT GROSS DESCRIPTION Received in [...] cut surfaces. No distinct calcifications are identified. Counter Pocket Trimmer sections are submitted in A1. /MK 10/21/2019 10:36 AM EDT [facility] MICROSCOPIC DESCRIPTION Microscopic examination is performed and the findings corroborate the diagnosis. 10/21/2019 10:36 AM EDT [facility] EMBEDDED IMAGES 10/21/2019 10:36 AM EDT [facility] Tissue MITRAL VALVE STRUCTURE / Unknown 10/17/2019 2:37 PM EDT 10/18/2019 10:14 AM EDT us Helder Ariza MD PATHOLOGY ORDERABLES Final Res ult Performing Organization Address [facility] de Phone Number [facility] [address] [place] [address] [facility]ORY [address] [place] [address] * DOMINICK (10/17/2019 12:01 PM EDT) Narrative [facility] - 10/17/2019 12:01 PM EDT Maggie [...] ORDERABLES Final Resu lt Performing Organization Address [facility] de Phone Number [facility] [address] [place], [place] [id number] * ANE SWAN JOSÉ MIGUEL PLACEMENT (10/17/2019 11:59 AM EDT) Narrative [facility] - 10/17/2019 11:59 AM EDT Maggie [...] Events: Patient tolerated welll with no complications Maggie Watt MD ANESTHESIA ORDERABLES Final Resu lt Performing Organization Address [facility] de Phone Number [facility] [address] [place] [address] * ANE INTRODUCER PLACEMENT (10/17/2019 11:55 AM EDT) Narrative [facility] - 10/17/2019 11:55 AM EDT Maggie [...] Events: Patient tolerated well with no complications Maggie Watt MD ANESTHESIA ORDERABLES Final Resu lt Performing Organization Address [facility] de Phone Number [facility] [address] [place] [address] * INTRAOP AIRWAY PLACEMENT (10/17/2019 11:50 AM EDT) Narrative [facility] - 10/17/2019 11:50 AM EDT Maggie [...] Condition: Atraumatic Insertion attempts: 1 Title: Anesthesiologist us Maggie Watt MD GA ANESTHESIA Final Result Performing Organization Address [facility] de Phone Number [facility] [address] [place] [address] * BB HISTORY CHECK (10/17/2019 10:15 AM EDT) BB HISTORY CHECK (1) No Previous History 10/17/2019 10:32 AM EDT [facility] BLOOD BANK Blood ARTERIAL BLOOD / Unknown 10/17/2019 10:15 AM EDT Anders New MD BLOOD BANK ORDERABLES Final Result Performing Organization Address [facility] de Phone Number [facility] BLOOD BANK [address] [place] [address] * ABORH (10/17/2019 10:15 AM EDT) ABORH Int A POS 10/17/2019 10:57 AM EDT [facility] BLOOD BANK Blood ARTERIAL BLOOD / Unknown 10/17/2019 10:15 AM EDT us Anders New MD BLOOD BANK ORDERABLES Final Result Performing Organization Address [facility] de Phone Number [facility] BLOOD BANK [address] [place] [address] * RED BLOOD CELLS REQUEST (10/17/2019 10:15 AM EDT) Only the most recent of2 resultswithin the time period is included. [facility] Product Code [id number] PSYCHIATRIC BLOOD BANK Unit Number [id number] [facility] BLOOD BANK Crossmatch Interp Compatible [facility] BLOOD BANK Dispense Status RETURNED [facility] BLOOD [facility] Blood Expiration Date [facility] BLOOD BANK ISBT 128 Type [address] [facility] BLOOD BANK BA CODING SYSTEM [id number] [facility] BLOOD BANK Blood Type (Unit) A POS [facility] BLOOD BANK Product Code [id number] PSYCHIATRIC BLOOD BANK Unit Number [id number] [facility] BLOOD BANK Crossmatch Interp Compatible [facility] BLOOD BANK Dispense Status RETURNED [facility] BLOOD [facility] Blood Expiration Date [facility] BLOOD BANK ISBT 128 Type [address] [facility] BLOOD BANK BA CODING SYSTEM [id number] [facility] BLOOD BANK Blood Type (Unit) A POS [facility] BLOOD BANK Blood 10/17/2019 10:1 5 AM EDT 10/17/2019 10:19 AM EDT us Helder Ariza MD BLOOD PRODUCT [place] [address] * ANTIBODY SCREEN IGG (10/17/2019 10:15 AM EDT) [facility] ABSC IgG Int Negative 10/17/2019 11:07 AM EDT [facility] BLOOD [facility] Blood ARTERIAL BLOOD / Unknown 10/17/2019 10:15 AM EDT us Anders New MD BLOOD BANK ORDERABLES Final Result Performing Organization Address City/[facility]/ZIP Co de Phone Number [address] [address] * (ABNORMAL) ACTIVATED CLOTTING TIME LR POC (10/17/2019 10:10 AM EDT) Only the most recent of4 resultswithin the time period is included. [facility] ACT-LR 354(H) 89 - 169 second(s) 10/17/2019 10:20 AM EDT [facility] Blood BLOOD SPECIMEN / Unknown 10/17/2019 10:10 AM EDT 10/17/2019 10:20 AM EDT Christ Soto MD POINT OF CARE TEST ORDERABLES Fi nal Result Performing Organization Address [facility] Phone Number [facility] [address] [place] [phone] * HEPARIN ANTI-XA, UNF (10/15/2019 9:39 AM EDT) Only the most recent of8 resultswithin the time period is included. Pathologist [facility] Heparin Level UNF 0.36 0.30 - 0.70 IU/mL 10/15/2019 9:55 AM EDT [facility] Comment:The therapeutic rang e for heparinized patients monitored by the Heparin Lvl UF is 0.30-0.70 IU/mL. Blood VENOUS BLOOD / Unknown Venipuncture / Unknown 10/15/2019 9:39 AM EDT 10/15/2019 9:43 AM EDT Delicia Ramesh MD HEMATOLOGY ORDERABLES Coco l Result Performing Organization Address [facility] Phone Number [facility] [address] [place] [address] * EXTRA LAVENDER (10/14/2019 6:09 PM EDT) Blood VENOUS BLOOD / Unknown Venipuncture / Unknown 10/14/2019 6:09 PM EDT 10/14/2019 6:27 PM EDT Helene Covington MD HEMATOLOGY ORDERABLES Final Resu lt Performing Organization Address [facility] Phone Number [facility] [address] [place] [address] * EXTRA TAFOYA URINE CX (10/14/2019 5:47 AM EDT) Urine URINE SPECIMEN COLLECTION, CLEAN CATCH / Unknown 10/14/2019 5:47 AM EDT 10/14/2019 6:02 AM EDT us Louis Cassidy MD MICROBIOLOGY - GENERAL ORDERABL ES Final Result Performing Organization Address [facility] Phone Number [facility] [address] [place] [address] * REPEAT LACTIC ACID (10/12/2019 4:34 PM EDT) Lactic Acid 1.6 0.5 - 1.9 mmol/L 10/12/2019 5:02 PM EDT [facility] Blood VENOUS BLOOD / Unknown Venipuncture / Unknown 10/12/2019 4:34 PM EDT 10/12/2019 4:47 PM EDT us Louis Cassidy MD CHEMISTRY ORDERABLES Final Resu lt Performing Organization Address [facility] Phone Number [facility] [address] [place] [address] * CT CHEST W CONTRAST (10/12/2019 4:33 [...] chest x-ray findings. - Louis Cassidy MD IM CT ORDERABLES Final Result * CORONAVIRUS 2018 (COVID-19) - REF LAB (10/12/2019 3:22 PM EDT) Pathologist [facility] CORONAVIRUS [id number]-[id number]-2 Negative Not Detected 10/14/2019 10:01 PM EDT EXTERNAL LAB Swab NASOPHARYNGEAL STRUCTURE / Unknown 10/12/2019 3:22 PM EDT 10/12/2019 3:31 PM EDT Narrative EXTERNAL LAB - 10/14/2019 10:01 PM EDT Test performed by reference lab: [place]. See scanned report. Caution should be exercised when interpreting negative results. A negative result does not rule out COVID-19 and cannot be used as sole basis for treatment or patient management decisions. If COVID-19 is still suspected following a negative result, re-testing should be considered. Louis Cassidy MD LAB SEND OUT ORDERABLES Final R esult Performing Organization Address City/[facility] de Phone Number EXTERNAL LAB See Scanned Report * INFLUENZA A/B ANTIGENS (10/12/2019 3:22 PM EDT) Influ A Ag Not Detected Not Detected 10/12/2019 3:52 PM EDT [facility] Influ B Ag Not Detected Not Detected 10/12/2019 3:52 PM EDT [facility] Swab NASOPHARYNGEAL STRUCTURE / Unknown 10/12/2019 3:22 PM EDT 10/12/2019 3:39 PM EDT Narrative [facility] - 10/12/2019 3:52 PM EDT Negative or Invalid results in patients with high clinical suspicion should be verified with RT-PCR, available as Respiratory Viral Mini Panel ([id number]) in [facility]. The WHO recommends molecular testing (Respiratory [...] test results during seasonal occurrence of influenza. Louis Cassidy MD MICROBIOLOGY - GENERAL ORDERABL ES Final Result Performing Organization Address [facility] de Phone Number [facility] [address] [place] [address] * PROCALCITONIN (10/12/2019 2:56 PM EDT) Procalcitonin 0.06 <=0.49 ng/mL 10/12/2019 3:38 PM EDT [facility] Blood VENOUS BLOOD / Unknown Venipuncture / Unknown 10/12/2019 2:56 PM EDT 10/12/2019 3:04 PM EDT Narrative [facility] - 10/12/2019 3:38 PM EDT Procalcitonin [...] ORDERABLES Final Resu lt Performing Organization Address [facility] de Phone Number [address] [address] * BLOOD CULTURE (NO STAIN) (10/12/2019 2:56 PM EDT) Only the most recent of2 resultswithin the time period is included. Culture Result No Growth at 120 hours. BLOOD CULTURE (NO STAIN) 10/18/2019 6:01 AM EDT [facility] Blood VENOUS BLOOD / Unknown Venipuncture / Unknown 10/12/2019 2:56 PM EDT 10/12/2019 3:04 PM EDT Louis Cassidy MD MICROBIOLOGY - GENERAL ORDERABL ES Final Result Performing Organization Address [facility] de Phone Number [employer] [address] [place] [address] , [place] [address] * (ABNORMAL) COLOGUARD (03/27/2019 10:00 AM EDT) COLOGUARD CLINICAL REPORT Positive (A) Not Applicable [facility] Comment: It is recommended that a [...] both Cologuard and colonoscopy. (Table 3, Maren Tobin al, N Engl J Med 2014;370(14):0063-4369.) Test Type: Composite algorithmic analysis of stool [...] can be accessed at the following location: [email or web address]. Additional description of the Cologuard test process, warnings and precautions can be found at [email or web address]. Rx Only. Stool specimen (specimen) 03/27/2019 10:00 AM EDT 03/28/2019 7:12 PM EDT Temi Isabel DRY HEAT ROOM ATTENDANT EXACT SCIENCE - ORDERABLE S Final Result Performing Organization Address City/[facility]/ZIP Co de Phone Number [employer] [address] [place] [address], [facility] [employer] [address] [facility] [place] [address] * PROSTATE SPECIFIC ANTIGEN (SCREENING) (05/21/2018 8:10 AM EST) Total Psa 2.82 <=4.00 ng/mL 05/21/2018 4:20 PM EST [facility] Blood Venipuncture / Unknown 05/21/2018 8:10 AM EST 05/21/2018 8:10 AM EST Narrative [employer] - 05/21/2018 4:20 PM EST Prostate cancer [...] interfere with this immunoassay test. Temi Isabel DRY HEAT ROOM ATTENDANT CHEMISTRY ORDERABLES Coco l Result Performing Organization Address City/[facility]/ZIP Co de Phone Number [facility] [address] [facility] , [address] [place] [phone] * THYROID STIMULATING HORMONE (05/21/2018 8:10 AM EST) Only the most recent of2 resultswithin the time period is included. TSH 2.300 0.270 - 4.200 mcIU/mL 05/21/2018 4:49 PM EST [facility] Blood Venipuncture / Unknown 05/21/2018 8:10 AM EST 05/21/2018 8:10 AM EST Narrative [employer] - 05/21/2018 4:49 PM EST Ingestion of daljit doses of biotin (>5 mg/day) taken within 8 hours of drawing blood sample can interfere with this immunoassay test. Temi Isabel DRY HEAT ROOM ATTENDANT CHEMISTRY ORDERABLES Coco l Result Performing Organization Address [facility] de Phone Number [facility] ffk environment [facility] [address] [facility] , [address] [place] [phone] * TESTOSTERONE LEVEL TOTAL (05/21/2018 8:10 AM EST) Only the most recent of2 resultswithin the time period is included. Pathologist [facility] Testosterone Lvl 630 300 - 720 ng/dL 05/21/2018 4:49 PM EST [employer] Blood VENOUS BLOOD / Unknown Venipuncture / Unknown 05/21/2018 8:10 AM EST 05/21/2018 8:10 AM EST Narrative [facility] [employer] - 05/21/2018 4:49 PM EST Values less than 12 ng/dL are not reliable as the intermediate precision coefficient of variation is > 20%. Ingestion of daljit doses of biotin (>5 mg/day) taken within 8 hours of drawing blood sample can interfere with this immunoassay test. Temi Isabel APRN CHEMISTRY ORDERABLES Coco l Result Performing Organization Address [facility] de Phone Number [facility] [employer] [address] [facility] , [place] [address] * XR TIBIA FIBULA LEFT AP AND [...] in the thumb andlittle finger. Shannan Guevara APRN IMG DIAGNOSTIC IMAGING ORD ERABLES Final Result * [...] findings. Severe degenerative change. Shannan Guevara APRN IMG DIAGNOSTIC IMAGING ORD ERABLES Final Result * [...] since November 26, 2016. M48.02-Spinal stenosis, cervical npdfnq-IPP-13-CM T84.216A-Breakdown (mechanical) of internal fixation device of vertebrae, initial rzdfrnbok-SVN-46-CM. TECHNICAL FACTORS: Sagittal and axial T1 and [...] space are new changes from 2014. Also new is greater ligamentum flavum hypertrophy [...] tingling since November 26, 2016.M48.02-Spinal stenosis, cervical nvozoc-HQI-71-CM T84.216A-Breakdown (mechanical) of internal fixation device ofvertebratracy, initial pxdqqduai-SGB-39-CM. TECHNICAL FACTORS: Sagittal and axial T1 and [...] at C4-C5 and C5-C6 are unremarkable. Right C4-Y9uwehbo foramen is moderately narrowed. Left C5-C6 neural [...] supraspinatus and infraspinatustendons. us Alvarez Jaimes MD Jake MRI ORDERABLES Final Result * SCANNED ANESTHESIA [...] EST) Final No growth at 3 days. [facility] GS Few WBC's Moderate RBC's No organisms seen [facility] Joint fluid specimen (specimen) STRUCTURE OF LEFT KNEE REGION / Unknown 08/10/2011 3:45 PM EST 08/10/2011 4:50 PM EST Narrative [facility] - 08/14/2011 7:55 AM EST Left knee Result [facility] Yuli Fermin MD MICROBIOLOGY - GENERAL ORDERABL ES Final Result Performing Organization Address [facility] de Phone Number [facility] [address] [place] [address] * ANAEROBIC CULTURE (08/10/2011 3:45 PM EST) Final No anaerobic growth at 5 days [facility] Joint fluid specimen (specimen) STRUCTURE OF LEFT KNEE REGION / Unknown 08/10/2011 3:45 PM EST 08/10/2011 4:50 PM EST Narrative [facility] - 08/16/2011 5:01 PM EST Left knee Result [facility] Yuli Fermin MD MICROBIOLOGY - GENERAL ORDERABL ES Final Result Performing Organization Address [facility] de Phone Number [facility] [address] [place] [address] * JOINT FLUID CRYSTALS (08/10/2011 3:45 PM EST) Crystal JF None Seen [facility] Joint fluid specimen (specimen) 08/10/2011 3:45 PM EST 08/10/2011 4:44 PM EST Narrative [facility] - 08/10/2011 8:32 PM EST Left knee us Yuli Fermin MD BODY FLUIDS AND STOOLS ORDERABL ES Final Result Performing Organization Address [facility] de Phone Number [facility] [address] [place] [address] * JOINT FLUID CELL COUNT (08/10/2011 3:45 PM EST) Source JF Left Knee SE LAB Color JF Red SE LAB Appear JF Turbid SE LAB RBC JF 667 /mcL SE LAB WBC JF 6389 /mcL SE LAB Segs JF 31 % SE LAB Lymphs JF 28 % SE LAB Macrophages JF 39 % SE LAB Other JF 2 % SE LAB Comment:eosinophl Joint fluid specimen (specimen) 08/10/2011 3:45 PM EST 08/10/2011 4:44 PM EST Narrative [facility] [facility] - 08/10/2011 6:10 PM EST Left knee us Yuli Fermin MD BODY FLUIDS AND STOOLS ORDERABL ES Final Result Performing Organization Address [facility] de Phone Number [facility] [address] [place] [address] * SCANNED PRE/POST PROCEDURES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
--- NOTE | 2025-01-22 13:48 | A.OFFVIS_ITS ---
[facility] Disclaimer: The information contained in this section may have been updated after the patient was seen, as this information can be updated by other users. Medical History Situational depression Amos Graham is a 68-year-old male who is seen today for an evaluation for a spinal stimulator trial for chronic back pain. Notes: Mr. Graham indicates that he has difficulty sleeping, he is unable to enjoy activities that he used to enjoy, and he is unable to do work around his home that he used to be able to do and this has caused increased irritability, frustration, and anxiety. He states that he did not previously have depression or anxiety in any sort of chronic way, but his chronic pain has caused him to feel depressed and experience anxiety. His suicide risk assessment score is 0, there are no concerns at this time. He is very adamant that he has never had suicidal ideation. There is no noted family psychiatric history that he is aware of. He currently does drink a few beers, but nothing excessive. He states as a young man he did experiment with cocaine, stimulants, alcohol, and marijuana. He said has been years since he is partook in any of that except he will occasionally use marijuana to help with his pain and anxiety. Assessments completed by patient/scores: Clinical interview-mental health intake form completed by the patient. Pain inventory-the responses are consistent with pain explained during our session. Pain has caused a significant interference in this patient's life and he is unable to do things that he used to enjoy as well as accomplish tasks that he once did. Pain anxiety symptom scale-scored 28-this is consistent with mild pain anxiety. Depression scale-score is 13 which is consistent with mild mood disturbance. The patient indicated that this is directly related to his chronic pain. Health locus of control-score is 16-he has positive internal focus of control, making sound decision making, and he is able to manage his emotions appropriately. Based off the following information from the patient and the completed self inventories, patient is mentally stable to have an implantable neurostimulator implant based off of his responses from the self inventory. Peripheral vascular disease Paroxysmal atrial fibrillation Cellulitis of leg, right Bilateral lower extremity edema Diabetes mellitus screening Nonhealing ulcer of right lower leg Afib Hypertension Arthritis Surgical History Status post total hip replacement, right Hx of eye surgery Hx of carpal tunnel repair Hx of shoulder surgery Hx of left knee surgery Hx of mitral valve repair Hx of heart bypass surgery Family History Father Cancer multiple myeloma Sister Cancer Social History (Updated 01/17/25 @ 13:30 by Larissa Mathew MA) Smoking Status: Former smoker years smoked: 15 smoking status stop date: 1991 second hand exposure: No alcohol intake: current alcohol intake frequency: holidays/special occasions only current occupational status: other Travel in the last 8 weeks?: None Have you lived/traveled outside US in past 30 days?: No Contact w/someone who lives/traveled outside US past 30 days?: No Exposure to someone with infectious disease in past 14 days?: No Do you have a fever (greater than 100.4 F or 38 C)?: No Have you tested positive for COVID-19?: No Exposed to someone with COVID-19 in past 14 days?: No Do you have a sore throat?: No Do you have a cough?: No Do you have any weakness?: No Do you have any diarrhea?: No Are you experiencing any unusual bleeding?: No Do you have any muscle aches/pain?: No Do you have any abdominal pain?: No Are you experiencing loss of taste or smell?: No PM Subjective & Objective Subjective Subjective:: Patient is a pleasant 69-year-old male who presents today for follow-up of bilateral greater trochanteric bursa injections on 12/31/2024. Today he rates his pain a 3out of 10 in his hips. Patient denies any new falls or injuries. He states that he had about 80% relief on the right side and 60% on the left side. Patient is still having a lot of complaints related to leg pain due to edema. Patient states this is nothing new and has gone on for years. Patient did previously have a lumbar epidural of L4-L5 back in November that did provide 75 to 80% relief and significantly reduced his leg symptoms. Today he states the pain is returning back. Patient does still want a proceed forward with the spinal cord stimulator trial. Patient was tentatively scheduled for this past F riday however due to not having adequate transportation he had to postpone. Patient states that now he is outside the window that he had gotten the approval for his insurance but would like to really proceed forward with the trial. He states the pain is just constant and does interfere with his ability perform activities of daily living such as cooking and cleaning.Patient is prescribed gabapentin from an outside provider. His Chris has been reviewed and is appropriate. Review of Systems: General: No recent weight changes, no fever, no sleep disturbances Respiratory: No cough, no shortness of air, no recurring pulmonary infections Cardiovascular/peripheral vascular: No chest pain, no palpitations, no edema, no shortness of breath Gastrointestinal: No new onset incontinence, normal bowel movements reported Genitourinary: No new onset incontinence Musculoskeletal: Low back pain, leg pain Psychiatric: [Normal mood/affect] Neurological: [Denies weakness in extremities], [denies balance issues] Pain at rest (0-10 scale): 5 Objective Objective:: Physical Exam: General: Alert and oriented x3, no acute distress, pleasant and cooperative Lungs: Respirations even and unlabored, symmetrical chest expansion Eyes: PERRL Musculoskeletal: Flexion and extension of lumbar [spine] somewhat guarded secondary to pain, [antalgic gait noted] Neurological: Speech clear, no gross sensory deficit Has patient had previous pain injection?: Yes Percent improvement in pain since last injection: 60 to 80% Conservative treatment options previously tried: Home exercise plan Length of treatment: Longer than 12 weeks Meds Home Medications and Allergies Home Medications ?Medication ?Instructions ?Recorded ?Confirmed ?Type apixaban 5 mg tablet (Eliquis) 5 mg PO DIRECTED Blo od Thinner 04/11/23 01/17/25 History atorvastatin 40 mg tablet 40 mg PO DAILY Cholesterol 1 01/17/25 History metoprolol succinate 100 mg 100 mg PO DAILY BLOOD PRES SURE 04/11/23 01/17/25 History tablet,extended release 24 hr torsemide 20 mg tablet 20 mg PO BID edema #60 tabs 09/05/23 01/17/25 Rx aspirin 81 mg tablet,delayed 81 mg PO DAILY 08/08/24 0 01/17/25 History release mupirocin 2 % topical ointment 1 applic topical TID #1 5 grams 11/28/24 01/17/25 Rx silver sulfadiazine 1 % topical 1 applic topical DAILY cellulitis 11/28/2401/17 Rx cream (Silvadene) #50 grams losartan 50 mg tablet mg PO 01/17/25 01/17/25 Hist ory New Prescriptions to Start Prescriptions: Allergies Allergy/AdvReac Type Severity Reaction Status Date / Time codeine Allergy Other Verified 01/17/25 13:31 morphine AdvReac Mild Verified 01/17/25 13:31 Assessment and Plan *Assessment and plan (1) Lumbar spinal stenosis: Status: Acute Category: Medical Code(s): M48.061 - Spinal stenosis, lumbar region without neurogenic claudication (2) Chronic pain syndrome: Status: Acute Category: Medical Code(s): G89.4 - Chronic pain syndrome (3) Lumbar radiculopathy: Status: Acute Category: Medical Code(s): M54.16 - Radiculopathy, lumbar region (4) Peripheral vascular disease: Status: Acute Category: Medical Code(s): I73.9 - Peripheral vascular disease, unspecified (5) Chronic back pain: Status: Acute Category: Medical Code(s): M54.9 - Dorsalgia, unspecified; G89.29 - Other chronic pain (6) Degenerative disc disease: Status: Acute Category: Medical Plan I did discuss with the patient that I do believe he would still benefit from the spinal cord stimulator trial. We did review over the risk and benefits again today and he would like to proceed forward. Patient was counseled that we will plan on sending him to the [facility] patient is on blood thinners so we will have to reach out to his provider and confirm he can stop this medication prior to the trial date. Patient has tried and failed conservative therapy including oral medications, heat and ice, topicals, previous physical therapy and continued at home stretching exercise for longer than 12 weeks. Patient will be resubmitted for the spinal cord stimulator trial under fluoroscopy at our [place] location. Patient will follow-up in [place] after this procedure. Patient has been instructed to contact the clinic with any concerns before the next appointment. Dr. Mosqueda has reviewed this note and agrees with this plan of care. This note was dictated using voice recognition software and make contain errors or omissions. All injections are used with Lidocaine, Bupivacaine and dexamethasone. Occasionally urine drug screen is needed to verify patient's compliance with our office pain contract. This is ordered based off specific treatments related to chronic pain with the potential to abuse certain medications.
[2025-01-22 14:16] VITALS: BP 132/70; PULSE 64; RESP 14; O2SAT 95; BMI 33.3
== END 2025-01-22 23:59 | disposition home or self-care (01) ==
LOC: SC.PAIN 13:33
PROVIDERS: PCP Family Medicine; Visit Provider Nurse Practitioner Family
DX: M48.061 Spinal stenosis, lumbar region without neurogenic claudication (principal); M51.16 Intervertebral disc disorders with radiculopathy, lumbar region; G89.4 Chronic pain syndrome; I73.9 Peripheral vascular disease, unspecified; Z79.899 Other long term (current) drug therapy
CPT/HCPCS: 99212; G0463

== ENCOUNTER 2025-01-28 13:45 | Outpatient (CLI) | payer MEDICARE, SELFPAY ==
--- OUTSIDE RECORDS SUMMARY | 2023-05-11 07:10 | XMS_ITS | Continuity of Care Document ---
Author Organization [facility] Address [address] [place] [address] Phone Care Team Providers Care Weather Forcaster Name Role Phone René Ram MD Unavailable [...] Office/outpa tient visit,est, mod [facility], [facility] [place] [address] [place], [place], [facility], tel:[phone] [facility] Unilateral primary osteoarthriti s, right hip 3 Yo Merritt. [address] [place], [id number], [place]. tel:[phone] Referring Provider: Alvarez Story, [address] [place], [place], [facility]. tel:[phone] [facility], [address] [place], [place], [facility], [place] tel:[phone] [facility] Unilateral primary osteoarthriti s, right hip 3 Travis Pino. [address] [place], [place], [facility], [place]. tel:[phone] Referring Provider: Alvarez Story, [address] [place], [place], [facility]. tel:[phone] Office/outpa tient visit,est, mod [facility], [address] [facility], [place], [facility], [place] tel:[phone] [facility] Unilateral primary osteoarthriti s, right hip 3 Yo Merritt. [address], [place], [place], [id number], [place]. tel:[phone] Referring Provider: Alvarez Story, [address] [facility], [place], [place], [facility]. tel:[phone] Office/outpa tient visit,est, mod [facility], [address], [facility], [place] tel:[phone] [facility] Spinal stenosis, lumbar region without neurogenic moo 3 Theodore Pino. [address] [facility], [place], [facility], [place]. tel:[phone] Referring Provider: Alvarez Story, [address] [facility], [place], [facility]. tel:[phone] Office/outpa tient visit,est, mod [facility], [facility] [place], [facility], [place] tel:[phone] [facility] Radiculopathy , lumbar region 3 Vicenta Rodriguez. [address] [place] [address], [address], . tel:[phone] Referring Provider: Michael Yadav, [address] [place] [address], [address]. tel:[phone] [facility], [address] [place], [place], [facility], [place] tel:[phone] [facility] Other low back pain 3 Vicenta Rodriguez. [address] [place] [address], [address], . tel:[phone] Referring Provider: Alvarez Story, [address] [facility], [place], [facility]. tel:[phone] [facility], [facility] [place], [facility], [place] tel:[phone] [facility] No Information Oct- 3 Janak Higgins. [address] [facility], [facility], [place], [place], [id number], [place]. tel:[phone] Referring Provider: Ronaldo Briceno, [address] [place] [address], [place], [address]. tel:[phone] [facility], [facility] [place], [facility], [place] tel:[phone] [facility] No Information 3 Janak Higgins. [address] [facility], [place] [address], [place], [place], [id number], [place]. tel:[phone] Referring Provider: Alvarez Story, [address] [place] [address], [facility]. tel:[phone] Office/outpa tient visit,new, mod [facility], [address] [place] [address], [facility], [place] tel:[phone] [facility] Carpal tunnel syndrome, left upper limb Apr-0 3 Janak Ronaldo. [address] [facility], [place] [address], [place], [place], [id number], [place]. tel:[phone] Specialist: Alvarez Alejo MD, [facility] [place], [address]. tel:[phone] ring Provider: Alvarez Story, [facility] [place], [facility]. tel:[phone] Office/outpa tient visit,est, mod [facility], [facility] [place], [facility], [place] tel:[phone] [facility] Spinal stenosis, lumbar region without neurogenic moo Mar-2 3 Theodore Pino. [facility] [place], [facility], . tel:[phone] Specialist: Alvarez Alejo MD, [facility] [place], [address]. tel:[phone] [place] [address] Provider: Michael Yadav, [address] [place] [address], [address]. tel:[phone] [facility], [facility] [place], [facility], tel:[phone] [facility] Spinal stenosis, lumbar region without neurogenic moo Suhail-3 0- 3 Theodore Pino. [address] [place] [address], [facility], . tel:[phone] Specialist: Alvarez Alejo MD, [facility] [place], [address]. tel:[phone] ring Provider: Michael Yadav, [address] [place] [address], [address]. tel:[phone] [facility], [facility] [place], [facility], [place] tel:[phone] [facility] Spinal stenosis, lumbar region without neurogenic claudRadiculo magen, lumbar regionSpondyl osis w/o myelopathy or radiculopathy , lumbar region Dec- 2 Coffaro Phu. [facility] [place], [facility], . tel:[phone] Specialist: Scottie Reid, [facility] [place] [facility] [address], [address]. tel:[phone] ring Provider: Michael Yadav, [address] [place], [address]. tel:[phone] [facility], [facility] [place], [facility], [place] tel:[phone] [facility] Spinal stenosis, lumbar region without neurogenic claudRadiculo magen, lumbar region Nov- 2 Coffaro Phu. [address] [place], [place], [facility], . tel:[phone] Referring Provider: Michael Yadav, [address] [place] [address], [address]. tel:[phone] [facility], [facility] [place], [facility], tel:[phone] [facility] No Information 2 Theodore Pino. [address] [place], [facility], . tel:[phone] Referring Provider: Michael Yadav, [address] [place] [address], [address]. tel:[phone] [facility], [facility] [place], [facility], tel:[phone] [facility] No Information 2 Arabella Bay. [address] [place], [facility], . tel:[phone] Referring Provider: Michael Yadav, [address] [place] [address], [address]. tel:[phone] [facility], [facility] [place], [facility], tel:[phone] [facility] No Information 2 Theodore Pino. [address] [place], [facility], . tel:[phone] Referring Provider: Michael Yadav, [address] [place] [address], [address]. tel:[phone] Office/outpa tient visit,est, mod [facility], [facility] [place], [facility], tel:[phone] [facility] Spinal stenosis, lumbar region without neurogenic moo Sep- 2 hTeodore Pino. [address] [place], [facility], . tel:[phone] Specialist: Scottie Reid, [address] [facility] [address], [address]. tel:[phone] ring Provider: Michael Yadav, [address] [place] [address], [facility] tel:[phone] [facility], [facility] [place], [facility], tel:[phone] [facility] Radiculopathy , lumbar region 2 Vicenta Rodriguez. [address] [place] [address], [facility], . tel:[phone] Referring Provider: Michael Yadav, [address] [place] [address], [facility]. tel:[phone] Office/outpa tient visit,est, mod [facility] [address], [facility], tel:[phone] [facility] Spondylosis w/o myelopathy or radiculopathy , lumbar regionRadicul opathy, lumbar regionSpinal stenosis, lumbar region with neurogenic claudication 2 Prasanna Jacque. [address] [place] [address], [facility], . tel:[phone] Referring Provider: Michael Yadav, [address] [place] [address], [facility]. tel:[phone] [facility] [address], [facility], [place] tel:[phone] [facility] Spondylosis w/o myelopathy or radiculopathy , lumbar region 2 Dheeraj Dejon. [address] [place] [address], [id number], [place]. tel:[phone] Referring Provider: Michael Yadav, [address] [place] [address], [facility]. tel:[phone] [facility] [address], [facility], [place] tel:[phone] [facility] Spondylosis w/o myelopathy or radiculopathy , lumbar region 2 Dheeraj Dejon. [address] [place] [address], [id number], . tel:[phone] Referring Provider: Michael Yadav, [address] [place] [address], [address]. tel:[phone] [facility] [address], [facility], [place] tel:[phone] [facility] Spondylosis w/o myelopathy or radiculopathy , lumbar region 2 Dheeraj Dejon. [address] [place], [place], [id number], [place]. tel:[phone] Referring Provider: Michael Yadav, [address] [place] [address], [facility]. tel:[phone] Office/outpa tient visit,est, mod [facility], [address] [place] [address], [facility], [place] tel:[phone] [facility] Radiculopathy , lumbar regionInterve rtebral disc disorders w radiculopathy , lumbar regionSpinal stenosis, lumbar region with neurogenic claudicationS pondylosis w/o myelopathy or radiculopathy , lumbar region 2 Prasanna Jacque. [address] [place] [address], [address], [place]. tel:[phone] Referring Provider: Michael Yadav, [address] [place] [address], [address]. tel:[phone] [facility] [address], [facility], tel:[phone] [facility] Spinal stenosis, lumbar region with neurogenic claudication 2 Vicenta Rodriguez. [address] [place] [address], [address], [place]. tel:[phone] Referring Provider: Michael Yadav, [address] [place] [address], [facility]. tel:[phone] [facility], [address] [place] [address], [address], tel:[phone] [facility] Radiculopathy , lumbar region May- 0202 2 Vicenta Rodriguez. [address] [place] [address], . tel:[phone] Referring Provider: Michael Yadav, [address] [place] [address]. tel:[phone] Office/outpa tient visit,est, mod [facility], [address] [place] [address], [facility], tel:[phone] [facility] Radiculopathy , lumbar region 2 2 Vicenta Rodriguez. [address] [place] [address], [facility], . tel:[phone] Referring Provider: Michael Yadav, [address] [place] [address]. tel:[phone] [facility], [address] [place] [address], [address], [place] tel:[phone] [facility] Intervertebra l disc disorders w radiculopathy , lumbar region Apr-2 8 2 Vicenta Rodriguez. [address] [place] [address], [facility], . tel:[phone] Referring Provider: Michael Yadav, [address] [place] [address]. tel:[phone] Office/outpa tient visit,est, mod [facility] [address], [address], tel:[phone] [facility] Spinal stenosis, lumbar region with neurogenic claudication Apr-2 1202 2 Vicenta Rodriguez. [address] [place] [address], [facility], [place]. tel:[phone] Referring Provider: Michael Yadav, [address] [place] [address], [address]. tel:[phone] [facility], [address] [place] [address], [facility], tel:[phone] [facility] Radiculopathy , lumbar region Sep- 2 Vicenta Rodriguez. [address] [place] [address], [address], [place]. tel:[phone] Referring Provider: Michael Yadav, [address] [place] [address], [address]. tel:[phone] Office/outpa tient visit,est, mod [facility], [address] [place] [address], [facility], [place] tel:[phone] [facility] No Information 0 8 Theodore Pino. [address] [place] [address], [facility], [place]. tel:[phone] [facility], [address] [place] [address], [facility], [place] tel:[phone] [facility] No Information Jun-2 7 Janak Ronaldo. [address] [facility], [place] [address], [place], [place], [id number], [place]. tel:[phone] [facility] [address], [facility], [place] tel:[phone] [facility] No Information Jun- 7 Janak Ronaldo. [address] [facility], [address], [place], [place], [id number], [place]. tel:[phone] [facility] [address], [facility], [place] tel:[phone] [facility] No Information Dec- 7 Janak Ronaldo. [address] [facility], [address], [place], [place], [id number], [place]. tel:[phone] Office/outpa tient visit,new, mod [facility] [place], [facility] [place], [facility], tel:[phone] [facility] Lesion of ulnar nerve, right upper limb Jun- 7 Janak Ronaldo. [address] [facility], [address], [address] [place] [address], . tel:[phone] [facility] [place], [facility] [place], [facility], tel:[phone] [facility] No Information Mar-0 3 4 Janak Ronaldo. [address] [facility], [place] [address], [place], [address] [place] [address], [place]. tel:[phone] [facility], [address] [place] [address], [facility], tel:[phone] [facility] No Information 2 4 Janak Ronaldo. [address] [facility], [address], [address] [place] [address], [place]. tel:[phone] Office/outpa tient visit,new, mod [facility], [address] [place] [address], [facility], tel:[phone] [facility] hand (chief complaint) No Information 4 Janak Ronaldo. [address], [address] [place] [address], [place]. tel:[phone] Referring Provider: Alvarez Story, [address] [place], [facility]. tel:[phone] Office/outpa tient visit,est, mod [facility], [address] [place] [address], [facility], tel:[phone] [facility] No Information Feb-0 4 Theodore Pino. [facility] [place], [facility], [place]. tel:[phone] [facility], [address] [place], [facility], tel:[phone] [facility] No Information 4 Mel López. [address], [address], [place], [place], [id number], [place]. tel:[phone] Referring Provider: Alvarez Story, [address] [place], [facility]. tel:[phone] Office/outpa tient visit,est, mod [facility] [place], [facility] [place], [facility], tel:[phone] [facility] No Information 4 Theodore Pino. [address] [place], [facility], [place]. tel:[phone] Office consultation , moderate [facility], [facility] [place], [facility], tel:[phone] [facility] No Information 4 Theodore Pino. [address] [place], [facility], . tel:[phone] Referring Provider: Scottie Barton, [address] [place] [address] [facility] [address], [address]. tel:[phone] Family History Family Member Type Diagnosis Age At Onset Mother Problem (finding) Family history of Osteo arthritis Father Problem (finding) Hypertension Payers Payer name Insurance type Covered alliance party ID Authorbrijesha soila(s) Dawn[employer] Medicare - [id number] Social History Type Description Quantity Date Captured Comments Sex Male Smoking Status No Information Chief Complaint And Reason For Visit No Information Reason For Referral Reason For Referral No Information Plan Of Treatment Date Type Action Status Future Order: Radiology Order MR I Lumbar Spine W/WO Contrast (08177), Ordered on: Ordered Future Order: Radiology Order MR I Lumbar Spine WO Contrast ([id number]), Ordered on: Ordered History Of Present Illness Encounter Date Complaint History Of Prese nt Illness hip hand Location: right hand. Functional Status Date Functional Assessmen t No Information Instructions Date Instruction Additional Infor mation No Information Assessments Type Assessment Date No Information Patient Care Teams Name Effective Dates (start - stop) Status Members No Information
--- OUTSIDE RECORDS SUMMARY | 2024-12-03 09:15 | XMS_ITS | Encounter Summary ---
Author Organization [place] [address] Care Team Providers Care Research Project Manager Name Role Phone Rene Caruso MD Primary Care Provider [phone] Reason for Visit * Nuclear Medicine (Routine) - Authorized Specialty Diagnoses / Procedures Referred By Sharri landrum Referred To Contact Orthopedic Surgery Diagnoses Status post total hip replacement, right Procedures NM BONE SCAN WHOLE BODY René Nicholas PA-C [address] [place] [phone] Phone: tel: fax: [address] [address] Phone: tel: fax: Referral ID Status Reason Start Date Expiration Date V isits Requested Visits Authorized [id number] Authorized 11/14/2024 11/14/2026 5 5 Encounter Details Date Type Department Care Team (Latest Contact Info) Description 12/03/2024 9:15 AM EDT - 12/03/2024 11:59 PM EDT Hospital Encounter [facility] N[facility] [address] [place] [address] René Nicholas PA-C [address] [place] [phone] Discharge Disposition: Home or Self Care Social History Tobacco Use Types Packs/Day Years Used Date Smoking Tobacco: Former Cigarettes 1.5 15 0 07/10/1984 - 07/10/1999 Smokeless Tobacco: Never Alcohol Use Standard Drinks/Week Comments Yes 12 (1 standard drink = 0.6 oz pu re alcohol) couple beers daily [facility] Utilities Answer Date Recorded In the past [...] Date Recorded PHQ-2 Total Score 0 10/01/2023 [facility] [place] of Occupat ional Health - Occupational Stress [...] 10/31/2019 Lack of Transportation (Non-Medical) No 10/31/2019 [facility] Transportation Answer D ate Recorded [...] 1:45 PM EST Office Visit [facility] [address] [address] Jona Chau MD [address] [place] [address] 11/07/2025 1:30 PM EDT Office Visit [facility] [address] [place] [phone] 11/07/2025 2:00 PM EDT Office Visit [facility] [address] [place] [phone] Funmi Aldrich APRN [address] [place] [address] [phone] documented as of this encounter Goals Goal [...] documented as of this encounter Care Teams Research Project Manager Relationship Specialty Start Date End Date Rene Caruso MD [address] [place] [address] [address] [facility] [address] PCP - General Family Medicine 10/05/23 documented as of this encounter
--- OUTSIDE RECORDS SUMMARY | 2024-12-03 09:15 | XMS_ITS | Encounter Summary ---
Author Organization [place] [address] Care Team Providers Care Food And Beverage Analyst Name Role Phone Rene Caruso MD Primary Care Provider [phone] Reason for Referral * Echo (Routine) - Closed Specialty Diagnoses / Procedures Referred By Sharri landrum Referred To Contact Radiology Diagnoses [place] (ventricular tachycardia) (HCC) Healthcare maintenance Shortness of breath Procedures EC ECHOCARDIOGRAM COMPLETE W DOPPLER AND COLOR FLOW MAPPING Funmi Aldrich APRN [address] [place] [address] Phone: tel: fax: Referral ID Status Reason Start Date Expiration Date Visits Re quested Visits Authorized [id number] Closed 11/07/2024 11/07/2026 1 1 Reason for Visit * Echo (Routine) - Closed Specialty Diagnoses / Procedures Referred By Sharri landrum Referred To Contact Radiology Diagnoses [place] (ventricular tachycardia) (HCC) Healthcare maintenance Shortness of breath Procedures EC ECHOCARDIOGRAM COMPLETE W DOPPLER AND COLOR FLOW MAPPING Funmi Aldrich APRN [address] [place] [address] Phone: tel: fax: Referral ID Status Reason Start Date Expiration Date Visits Re quested Visits Authorized [id number] Closed 11/07/2024 11/07/2026 1 1 Encounter Details Date Type Department Care Team (Latest Contact Info) Description 12/03/2024 9:15 AM EDT - 12/03/2024 11:59 PM EDT Hospital Encounter [facility] ECHO [address] [place] [address] Funmi Aldrich, MARCELO [address] [place] [address] [place] (ventricular tachycardia) (HCC); Healthcare maintenance; Shortness of breath Discharge Disposition: Home or Self Care Social History Tobacco Use Types Packs/Day Years Used Date Smoking Tobacco: Former Cigarettes 1.5 15 0 07/10/1984 - 07/10/1999 Smokeless Tobacco: Never Alcohol Use Standard Drinks/Week Comments Yes 12 (1 standard drink = 0.6 oz pu re alcohol) couple beers daily [facility] Utilities Answer Date Recorded In the past 12 months has [employer], gas, oil, or water [employer] threatened to shut off services in your home? No 10/01/2023 Overall Financial Resource Strain (CARDIA) Answe r Date Recorded How hard is it for you to pa y for the very basics like food, housing, medical care, and heating? Not hard at all 10/01/2023 PHQ-2 Answer Date Recorded PHQ-2 Total Score 0 10/01/2023 [facility] [place] of Occupat ional Health - Occupational Stress [...] 10/31/2019 Lack of Transportation (Non-Medical) No 10/31/2019 [facility] IP Transportation Answer D ate Recorded In [...] 1:45 PM EST Office Visit [facility] [address] [address] Jona Chau MD [address] [place] [address] 11/07/2025 1:30 PM EDT Office Visit [facility] [address] [place] [phone] 11/07/2025 2:00 PM EDT Office Visit [facility] [address] [place] [phone] Funmi Aldrich APRN [address] [place] [address] [phone] documented as of this encounter Goals Goal [...] therapy. Stay Tobacco Free Lifestyle No Temi Isaebl APRN documented as of this encounter Procedures [...] documented as of this encounter Care Teams Food And Beverage Analyst Relationship Specialty Start Date End Date Rene Caruso MD [address] [facility] [address] [place] [address] PCP - General Family Medicine 10/05/23 documented as of this encounter
--- OUTSIDE RECORDS SUMMARY | 2024-12-03 09:15 | XMS_ITS | Encounter Summary ---
Author Organization [place] [address] Care Team Providers Care Sports Analyst Name Role Phone Rene Caruso MD Primary Care Provider [phone] [phone] Reason for Referral * Nuclear Medicine (Routine) - Authorized Specialty Diagnoses / Procedures Referred By Contac t Referred To Contact Orthopedic Surgery Diagnoses Status post total hip replacement, right Procedures NM BONE SCAN WHOLE BODY René Nicholas PA-C [address] [place] [phone] Phone: tel: fax: [place] [address] Phone: tel: fax: Referral ID Status Reason Start Date Expiration Date V isits Requested Visits Authorized [id number] Authorized 11/14/2024 11/14/2026 5 5 Reason for Visit * Nuclear Medicine (Routine) - Authorized Specialty Diagnoses / Procedures Referred By Contac t Referred To Contact Orthopedic Surgery Diagnoses Status post total hip replacement, right Procedures NM BONE SCAN WHOLE BODY René Nicholas PA-C [address] [place] [phone] Phone: tel: fax: [address] [address] Phone: tel: fax: Referral ID Status Reason Start Date Expiration Date V isits Requested Visits Authorized [id number] Authorized 11/14/2024 11/14/2026 5 5 Encounter Details Date Type Department Care Team (Latest Contact Info) Description 12/03/2024 9:15 AM EDT - 12/03/2024 11:59 PM EDT Hospital Encounter [facility]TT NUC MED [address] [place] [address] René Nicholas PA-C [address] [place] [phone] Status post total hip replacement, right Discharge Disposition: Home or Self Care Social History Tobacco Use Types Packs/Day Years Used Date Smoking Tobacco: Former Cigarettes 1.5 15 0 07/10/1984 - 07/10/1999 Smokeless Tobacco: Never Alcohol Use Standard Drinks/Week Comments Yes 12 (1 standard drink = 0.6 oz pu re alcohol) couple beers daily [facility] Utilities Answer Date Recorded In the past 12 months has e [employer], gas, oil, or water [employer] threatened to shut off services in your home? No 10/01/2023 Overall Financial Resource Strain (CARDIA) Answe r Date Recorded How hard is it for you to pa y for the very basics like food, housing, medical care, and heating? Not hard at all 10/01/2023 PHQ-2 Answer Date Recorded PHQ-2 Total Score 0 10/01/2023 [facility] [place] of Occupat ional Health - Occupational Stress [...] 10/31/2019 Lack of Transportation (Non-Medical) No 10/31/2019 [facility] IP Transportation Answer D [...] PM EST Office Visit [facility] [address] [place] [address] Jona Chau MD [address] [place] [address] [place] [address] 11/07/2025 1:30 PM EDT Office Visit [facility] [address] [place] [phone] 11/07/2025 2:00 PM EDT Office Visit [facility] [address] [place] [phone] Funmi Aldrich APRN [address] [place] [address] documented as of this encounter [...] CLINICAL HISTORY: Z96.641-Presence of right artificial hip kbgrw-BSS-60-CM. COMPARISON: No comparison bone scan imaging studies. PROCEDURE COMMENTS: 28.3 mCi of [id number]. Whole body bone scanning per protocol. FINDINGS: [...] PM CLINICAL HISTORY: Z96.641-Presence of right artificial ywabgmxt-DSM-98-CM. COMPARISON: No comparison bone scan imaging studies. PROCEDURE COMMENTS: 28.3 mCi of [id number]. Whole body bone scanningper protocol. FINDINGS: Prior [...] documented as of this encounter Care Teams Sports Analyst Relationship Specialty Start Date End Date Rene Caruso MD [facility] [address] [place] [phone] PCP - General Family Medicine 10/05/23 documented as of this encounter
--- OUTSIDE RECORDS SUMMARY | 2024-12-05 14:00 | XMS_ITS | Encounter Summary ---
Author Organization [facility] Address [address] [place] [address] Care Team Providers Care Egg Trayer Name Role Phone Rene Caruso MD Primary Care Provider [phone] Reason for Visit * Reason Comments Follow-up Encounter Details Date Type Department Care Team (Late st Contact Info) Description 12/05/2024 2:00 PM EDT Office Visit [place] [phone] René Brown MD [address] [place] [phone] Status post total hip replacement, right (Primary Dx) Social History Tobacco Use Types Packs/Day Years Used Date Smoking Tobacco: Former Cigarettes 1.5 15 0 07/10/1984 - 07/10/1999 Smokeless Tobacco: Never Alcohol Use Standard Drinks/Week Comments Yes 12 (1 standard drink = 0.6 oz pu re alcohol) couple beers daily [facility] Utilities Answer Date Recorded In the past 12 months has [employer], gas, oil, or water [employer] threatened to shut off services in your home? No 10/01/2023 Overall Financial Resource Strain (CARDIA) Answe r Date Recorded How hard is it for you to pa y for the very basics like food, housing, medical care, and heating? Not hard at all 10/01/2023 PHQ-2 Answer Date Recorded PHQ-2 Total Score 0 10/01/2023 [facility] [place] of Occupat ional Health - Occupational Stress [...] 10/31/2019 Lack of Transportation (Non-Medical) No 10/31/2019 [facility] IP Transportation Answer D ate Recorded In [...] 1:45 PM EST Office Visit [facility] [address] [address] Jona Chau MD [address] [place] [address] 11/07/2025 1:30 PM EDT Office Visit [facility] [address] [place] [address] [place] [phone] 11/07/2025 2:00 PM EDT Office Visit [facility] [address] [place] [phone] Funmi Aldrich APRN [address] [place] [address] documented as of this encounter Goals Goal [...] as of this encounter Care Teams Egg Trayer Relationship Specialty Start Date End Date Rene Caruso MD [address] [place] [address] [address] [place] [phone] PCP - General Family Medicine 10/05/23 documented as of this encounter
[2025-01-28 19:17] LABS: Hematocrit 43.6 % (42.0-52.0); Hemoglobin 14.6 g/dL (14.1-18.0); Immature Granulocytes % 0.4 %; Mean Corpuscular HGB Conc 33.5 g/dL (31.8-35.4); Mean Corpuscular Hemoglobin 32.3 pg (27.0-31.2); Mean Corpuscular Volume 96.5 fl (80-94); Nucleated Red Blood Cells % 0 %; Platelet Count 241 K/mm3 (142-424); Red Blood Count 4.52 M/mm3 (4.60-6.20); Red Cell Distribution Width-SD 47.4 fL; White Blood Count 7.5 K/mm3 (4.8-10.8)
[2025-01-28 19:44] LABS: Chloride 91 mmol/L (98-107); Potassium 4.9 mmoL/L (3.5-5.1); Sodium 130 mmol/L (136-145)
[2025-01-28 19:47] LABS: Anion Gap 8.9 mEq/L (5-15); Blood Urea Nitrogen 12 mg/dl (9-20); Carbon Dioxide 35 mmol/L (22.0-30.0); Creatinine,Serum 0.70 mg/dl (0.66-1.25); Estimated Glomerular Filt Rate 112 ml/min (>60); GFR (African American) 136 ML/MIN (>60)
[2025-01-28 19:48] LABS: Calcium 9.2 mg/dl (8.4-10.2); Glucose 99 mg/dl (74-100)
--- OUTSIDE RECORDS SUMMARY | 2025-01-29 11:37 | XMS_ITS | Encounter Summary ---
Author Organization [place] [address] Care Team Providers Care Ink Grinder Name Role Phone Rene Caruso MD Primary Care Provider [phone] Encounter Details Date Type Department Care Team (Late st Contact Info) Description 01/09/2025 Orders Only [facility] [address] [facility] [address] [place] [address] Jorden Cotton MD [address] [place], [place] [id number] Vector Remote Device Social History Tobacco Use Types Packs/Day Years Used Date Smoking Tobacco: Former Cigarettes 1.5 15 0 07/10/1984 - 07/10/1999 Smokeless Tobacco: Never Alcohol Use Standard Drinks/Week Comments Yes 12 (1 standard drink = 0.6 oz pu re alcohol) couple beers daily [facility] Utilities Answer Date Recorded In the past 12 months has [employer], gas, oil, or water [employer] threatened to shut off services in your home? No 10/01/2023 Overall Financial Resource Strain (CARDIA) Answe r Date Recorded How hard is it for you to pa y for the very basics like food, housing, medical care, and heating? Not hard at all 10/01/2023 PHQ-2 Answer Date Recorded PHQ-2 Total Score 0 10/01/2023 [facility] [place] of Occupat ional Health - Occupational Stress [...] Lack of Transportation (Non-Medical) No 10/31/2019 [facility] IP Transportation Answer [...] PM EST Office Visit [facility] [address] [address] Jona Chau MD [address] [place] [address] 11/07/2025 1:30 PM EDT Office Visit [facility] [address] [place] [address] 11/07/2025 2:00 PM EDT Office Visit [facility] [address] [place] [address] Funmi Aldrich APRN [address] [place] [address] [phone] documented as of this encounter Goals Goal [...] Procedure Name Priority Date/Time Associated Diagnosis Comments NE INTERROGATION EVAL REMOTE </90 D 07/11/FORM WORKER LD DFB Routine 01/09/2025 12:00 AM EDT Vector Remote Device documented in this encounter Results * VECTOR REMOTE DEVICE (01/09/2025 12:00 AM EDT) 01/09/2025 Narrative [facility] - 01/09/2025 12:00 AM EDT No significant episodes. Atrial Episodes: 2. Longest atrial episode: . Patient on AC. Mode: VVIR. SENIOR FORMULATION SCIENTIST: 98%. Normal device function. Device Advisory. us Jorden Cotton MD [facility] CARDIAC CATH ORDERAB LES Final Result [facility] [address] [place] [address] documented in this encounter Visit Diagnoses Diagnosis Vector Remote Device documented in this encounter Additional Health Concerns Assessment Noted Time A fall risk assessment has been complete d for the patient 11/30/2023 2:14 PM EDT documented as of this encounter Care Teams Ink Grinder Relationship Specialty Start Date End Date Rene Caruso MD [address] [address] [address] [place] [address] PCP - General Family Medicine 10/05/23 documented as of this encounter
--- OUTSIDE RECORDS SUMMARY | 2025-01-29 11:37 | XMS_ITS | Encounter Summary ---
Author Organization [place] [address] Care Team Providers Care Planning Supervisor Name Role Phone Rene Caruso MD Primary Care Provider [phone] Encounter Details Date Type Department Care Team (Late st Contact Info) Description 01/10/2025 Orders Only [facility] [address] [facility] [address] [place] [address] Jorden Cotton MD [address] [place], [place] [phone] Vector Remote Device Social History Tobacco Use Types Packs/Day Years Used Date Smoking Tobacco: Former Cigarettes 1.5 15 0 07/10/1984 - 07/10/1999 Smokeless Tobacco: Never Alcohol Use Standard Drinks/Week Comments Yes 12 (1 standard drink = 0.6 oz pu re alcohol) couple beers daily [facility] Utilities Answer Date Recorded In the past 12 months has [employer] gas, oil, or water [employer] threatened to shut off services in your home? No 10/01/2023 Overall Financial Resource Strain (CARDIA) Answe r Date Recorded How hard is it for you to pa y for the very basics like food, housing, medical care, and heating? Not hard at all 10/01/2023 PHQ-2 Answer Date Recorded PHQ-2 Total Score 0 10/01/2023 [facility] [place] of Occupat ional Health - Occupational Stress [...] 10/31/2019 Lack of Transportation (Non-Medical) No 10/31/2019 [facility] IP Transportation Answer D ate [...] 1:45 PM EST Office Visit [facility] [address] [address] Jona Chau MD [address] [place] [address] 11/07/2025 1:30 PM EDT Office Visit [facility] [address] [place] [address] 11/07/2025 2:00 PM EDT Office Visit [facility] [address] [place] [phone] Funmi Aldrich APRN [address] [place] [address] [phone] documented as of this encounter Goals Goal [...] Name Priority Date/Time Associated Diagnosis Comments NM REM INTERROG ICPMS <30 D PHYS/QHP Routine 01/10/2025 12:00 AM EDT Vector Remote Device documented in this encounter Results * VECTOR REMOTE HEART FAILURE DEVICE (01/10/2025 12:00 AM EDT) 01/10/2025 Narrative [facility] - 01/10/2025 12:00 AM EDT Stable trend. us Jorden Cotton MD [facility] CARDIAC CATH ORDERAB LES Final Result Performing Organization Address City/State/[facility] Co de Phone Number [facility] 1 [place] [address] documented in this encounter Visit Diagnoses Diagnosis Vector Remote Device documented in this encounter Additional Health Concerns Assessment Noted Time A fall risk assessment has been complete d for the patient 11/30/2023 2:14 PM EDT documented as of this encounter Care Teams Planning Supervisor Relationship Specialty Start Date End Date Rene Caruso MD [address] [place] [address] [address] [facility] [place] [address] PCP - General Family Medicine 10/05/23 documented as of this encounter
--- OUTSIDE RECORDS SUMMARY | 2025-01-29 11:37 | XMS_ITS | Encounter Summary ---
Author Organization [place] [address] Care Team Providers Care Turret Lathe Set Up Operator Name Role Phone Rene Caruso MD Primary Care Provider [phone] Encounter Details Date Type Department Care Team (Latest Contact Info) Description 12/05/2024 Results Follow-Up [facility] [address] [facility] [address] [place] [address] Funmi Aldrich APRN [address] [place], [place] [phone] EC ECHOCARDIOGRAM COMPLETE W DOPPLER AND COLOR FLOW MAPPING Social History Tobacco Use Types Packs/Day Years Used Date Smoking Tobacco: Former Cigarettes 1.5 15 0 07/10/1984 - 07/10/1999 Smokeless Tobacco: Never Alcohol Use Standard Drinks/Week Comments Yes 12 (1 standard drink = 0.6 oz pu re alcohol) couple beers daily [facility] Utilities Answer Date Recorded In the past 12 months has [employer], gas, oil, or water [employer] threatened to shut off services in your home? No 10/01/2023 Overall Financial Resource Strain (CARDIA) Answe r Date Recorded How hard is it for you to pa y for the very basics like food, housing, medical care, and heating? Not hard at all 10/01/2023 PHQ-2 Answer Date Recorded PHQ-2 Total Score 0 10/01/2023 [facility] [place] of Occupat ional Health - Occupational Stress [...] 10/31/2019 Lack of Transportation (Non-Medical) No 10/31/2019 [facility] IP Transportation Answer D ate Recorded [...] PM EST Office Visit [facility] [address] [address] Jona Chau MD [address] [place] [address] 11/07/2025 1:30 PM EDT Office Visit [facility] [address] [place] [phone] 11/07/2025 2:00 PM EDT Office Visit [facility] [address] [place] [phone] Funmi Aldrich APRN [address] [place] [address] [phone] documented as of this encounter Goals Goal [...] documented as of this encounter Care Teams Turret Lathe Set Up Operator Relationship Specialty Start Date End Date Rene Caruso MD [facility] [address] [place] [address] PCP - General Family Medicine 10/05/23 documented as of this encounter
--- OUTSIDE RECORDS SUMMARY | 2025-01-29 11:37 | XMS_ITS | Encounter Summary ---
Author Organization [place] [address] Care Team Providers Care Business Initiatives Manager Name Role Phone Rene Caruso MD Primary Care Provider [phone] Encounter Details Date Type Department Care Team (Late st Contact Info) Description 12/10/2024 Orders Only [facility] [address] [facility] [address] [place] [address] Jorden Cotton MD [address] [place], [place] [phone] Vector Remote Device Social History Tobacco Use Types Packs/Day Years Used Date Smoking Tobacco: Former Cigarettes 1.5 15 0 07/10/1984 - 07/10/1999 Smokeless Tobacco: Never Alcohol Use Standard Drinks/Week Comments Yes 12 (1 standard drink = 0.6 oz pu re alcohol) couple beers daily [facility] Utilities Answer Date Recorded In the past 12 months has [employer], gas, oil, or water [employer] threatened to shut off services in your home? No 10/01/2023 Overall Financial Resource Strain (CARDIA) Answe r Date Recorded How hard is it for you to pa y for the very basics like food, housing, medical care, and heating? Not hard at all 10/01/2023 PHQ-2 Answer Date Recorded PHQ-2 Total Score 0 10/01/2023 [facility] [place] of Occupat ional Health - Occupational [...] 10/31/2019 Lack of Transportation (Non-Medical) No 10/31/2019 [facility] IP Transportation Answer D ate [...] 1:45 PM EST Office Visit [facility] [address] [address] Jona Chau MD [address] [place] [address] 11/07/2025 1:30 PM EDT Office Visit [facility] [address] [place] [phone] 11/07/2025 2:00 PM EDT Office Visit [facility] [address] [place] [address] Funmi Aldrich APRN [address] [place] [address] [phone] documented as of this encounter Goals Goal [...] Procedure Name Priority Date/Time Associated Diagnosis Comments [place] REM INTERROG ICPMS <30 D PHYS/QHP Routine 12/10/2024 12:00 AM EDT Vector Remote Device documented in this encounter Results * VECTOR REMOTE HEART FAILURE DEVICE (12/10/2024 12:00 AM EDT) 12/10/2024 Narrative [facility] - 12/10/2024 12:00 AM EDT Stable trend. us Jorden Cotton MD [facility] CARDIAC CATH ORDERAB LES Final Result Performing Organization Address City/State/[facility] Co de Phone Number [facility] 1 [place] [address] documented in this encounter Visit Diagnoses Diagnosis Vector Remote Device documented in this encounter Additional Health Concerns Assessment Noted Time A fall risk assessment has been complete d for the patient 11/30/2023 2:14 PM EDT documented as of this encounter Care Teams Business Initiatives Manager Relationship Specialty Start Date End Date Rene Caruso MD [address] [place] [address] [address] [facility] [place] [address] PCP - General Family Medicine 10/05/23 documented as of this encounter
--- OUTSIDE RECORDS SUMMARY | 2025-01-29 11:37 | XMS_ITS | Encounter Summary ---
Author Organization [place] [address] Care Team Providers Care Hi Ranger Operator Name Role Phone Jeanette Sushil Mick Primary Care Provider [phone] Temi Isabel APRN Primary Care Provider [phone] Reena Benson RN Unavailable Unavailable Helder Yung MD Primary Care Provider [phone] Temi Isabel APRN Primary Care Provider [phone] Gaye Stern MD Primary Care Provi sonal Unavailable Rene Caruso MD Primary Care Provider [phone] Encounter Details Date Type Department Care Team (Late st Contact Info) Description 10/27/2009 Orders Only [facility] [address] [place] [address] Scottie Elkins MD Social History [...] 1:45 PM EST [place] [address] Jona Chau MD [address] [place] [address] 11/07/2025 1:30 PM EDT Office Visit [facility] [address] [facility] [address] [place] [address] 11/07/2025 2:00 PM EDT Office Visit [facility] [address] [facility] [address] [place] [address] Funmi Aldrich APRN [address] [place] [address] documented as of this encounter [...] a practice prior to that practice using [facility] BTR for Medical Records. Performing Provider: Scottie Elkins [...] documented as of this encounter Care Teams Hi Ranger Operator Relationship Specialty Start Date End Date Sushil Reid [address] [facility] [address] [place] [address] PCP - General 05/05/10 02/26/17 Temi Isabel APRN [employer] [place] [address] PCP - General Nurse Practitioner-Family 02/27/1707/10 Helder Yung MD [address] [place] [address] [place] [address] PCP - General Family Medicine 07/23/20 08/10/20 Temi Isabel APRN [address] [place] [address] [place] [address] PCP - General Nurse Practitioner-Family 08/11/2002/07 Gaye Stern MD [address] [place] [address] [place] [address] PCP - General Family Medicine 04/26/22 10/03/23 Rene Caruso MD [facility] [address] [place] [address] PCP - General Family Medicine 10/05/23 Reena Benson, SHA Authorization Rep Registered Nurse 10/31/19 12/31/19 documented as of this encounter
--- OUTSIDE RECORDS SUMMARY | 2025-01-29 11:37 | XMS_ITS | Encounter Summary ---
Author Organization [place] [address] Care Team Providers Care Sales Representative Printing Supplies Name Role Phone Jeanette Sushil Mick Primary Care Provider [phone] Temi Isabel APRN Primary Care Provider + [phone] Reena Benson RN Unavailable Unavailable Helder Yung MD Primary Care Provider [phone] Temi Isabel APRN Primary Care Provider + [phone] Gaye Stern MD Primary Care Provi sonal Unavailable Rene Caruso MD Primary Care Provider [phone] Encounter Details Date Type Department Care Team (Late st Contact Info) Description 11/06/2008 Orders Only [facility] [address] [place] [address] Perico Sequeira MD [address] [place] [address] Social History Tobacco Use Types Packs/Day [...] 1:45 PM EST Office Visit [facility] [address] [place] [address] Jona Chau MD [address] [place] [address] 11/07/2025 1:30 PM EDT Office Visit [facility] [address] [facility] [address] [place] [address] 11/07/2025 2:00 PM EDT Office Visit [facility] [address] [facility] [address] [place] [address] Funmi Aldrich, MARCELO [address] [place], [place] [id number] documented as of this encounter Procedures Procedure [...] a practice prior to that practice using [facility] for Medical Records. Performing Provider: Perico Sequeira [...] documented as of this encounter Care Teams Sales Representative Printing Supplies Relationship Specialty Start Date End Date Sushil Reid [address] [facility] [address] [place] [address] PCP - General 05/05/10 02/26/17 Temi Isabel APRN [address] [facility] [place] [phone] PCP - General Nurse Practitioner-Family 02/27/1707/10 Helder Yung MD [address] [place] [address] [place] [address] PCP - General Family Medicine 07/23/20 08/10/20 Temi Isabel APRN [address] [place] [address] [place] [address] PCP - General Nurse Practitioner-[facility] 08/11/2002/07 Gaye Stern MD [address] [place] [address] [place] [address] PCP - General Family Medicine 04/26/22 10/03/23 Rene Caruso MD [facility] [address] [place] [address] PCP - General Family Medicine 10/05/23 Reena Benson, RN Burner Machine Operator Registered Nurse 10/31/19 12/31/19 documented as of this encounter
--- OUTSIDE RECORDS SUMMARY | 2025-01-29 11:37 | XMS_ITS | Clinical Summary ---
Author Organization Healthcare Address [address] [place] [address] Care Team Providers Care Vehicle Glass Technician Name Role Phone Scottie Reid MD Primary Care Provider [phone] Immunizations Immunization Administration Dates Next Due Influenza, [...] 2006 UKY-Zoster Vaccines (1 of 2) 2006 [id number]-[id number] Vaccine (1 - 20 24-25 season) 2024 [...] age to complete this topic Care Teams Vehicle Glass Technician Relationship Specialty Start Date End Date Scottie Reid MD [address] [place] [address] PCP - General 11/20/20
--- OUTSIDE RECORDS SUMMARY | 2025-01-29 11:37 | XMS_ITS | Clinical Summary ---
Author Organization [facility] Address [facility] [place] [address] Care Team Providers Care Broth Setter Name Role Phone Pcp, Leeann Primary Care Provider [phone] Source Comments This information has been disclosed [...] therelease of HIV test results or diagnoses. [id number] Allergies Active Allergy Reactions Criticality Noted [...] 21 Insurance BLUE MEDICARE ADVANTAGE Care Teams Broth Setter Relationship Specialty Start Date End Date Pcp, No [address] [place], [place] [id number] PCP - General 12/25/23
--- OUTSIDE RECORDS SUMMARY | 2025-01-29 11:38 | XMS_ITS | Encounter Summary ---
Author Organization [place] [address] Care Team Providers Care Director Orange Name Role Phone Gaye Stern MD Primary Care Provi Rene Sage MD Primary Care Provider [phone] Encounter Details Date Type Department Care Team (Late st Contact Info) Description 07/20/2021 Orders Only [facility] [address] [facility] [address] [place] [address] Jorden Cotton MD [address] [place] [address] Social History Tobacco Use Types Packs/Day Years [...] 1:45 PM EST Office Visit SEP H&V [address] [address] Jona Chau MD [address] [place] [address] 11/07/2025 1:30 PM EDT Office Visit [facility] [address] [place] [address] [address] [place] [address] 11/07/2025 2:00 PM EDT Office Visit [facility] [address] [place] [address] [address] [place] [address] Funmi Aldrich APRN [address] [place] [address] documented as of this encounter Goals Goal [...] PM EST) 07/20/2021 9:26 PM EST Narrative [facility] - 07/23/2021 3:49 PM EST Per Vector: CLINIC REQUESTED: No significant episodes. NSVT: 4.AT/AF [place]: 68.9%. Known AF, patient on AC. CENTER MEDICAL DIRECTOR: 16.4%. Normal device function. 10.2 battery.- No sure who requested- no notes in Epic/paceart/ER or scheduled appointments. Alexandra Xiong RN us Jorden Cotton MD [facility] CARDIAC CATH ORDERAB LES Final Result [facility] 1 [place], [place] [id number] documented in this encounter Visit Diagnoses Not on filedocumented in this encounter Care Teams Director Orange Relationship Specialty Start Date End Date Gaye Stern MD PCP - General Family Medicine 04/26/22 10/03/23 Rene Caruso MD [address] [facility] [address] [facility] [address] PCP - General Family Medicine 10/05/23 documented as of this encounter
--- OUTSIDE RECORDS SUMMARY | 2025-01-29 11:38 | XMS_ITS | Clinical Summary ---
Author Organization [facility] Address [address] [place] [address] Phone Care Team Providers Care Molder Machine Name Role Phone Ya Peralta MD [phone] Conditions or Problems Problem Name Problem Code Onset Date Status Entry Date Provider Comment Standard Description Annotate SPONDYLOSIS, LUMBAR 969093965 (SNOMED CT) 03/08 Active 03/08 Ya Peralta MD Lumbosacral spondylosis LUMBAR RADICULOPATHY 643017141 (SNOMED CT) 03/03 Active 03/03 Teri Brito MA Lumbar radiculopathy SPINAL STENOSIS 13714305 (SNOMED CT) 03/03 Active 03/03 Teri Brito MA Spinal stenosis Medications Medication Instructions Start Date Stop Date Generic Name [facility] Provider ELIQUIS 5 MG TABS apixaban 01550936242 L joan Brito MA METOPROLOL SUCCINATE ER 100 MG [id number] metoprolol succinate 06503055818 Teri Brito MA LOSARTAN POTASSIUM 25 MG TABS losartan 95265782689 Teri Brito MA OXYCODONE HCL 5 MG TABS oxycodone 35173887211 Teri Brito MA TORSEMIDE 20 MG TABS torsemide 42095170701 Teri Brito MA METHOCARBAMOL 500 MG TABS methocarbamol 44975021903 Teri Brito MA ATORVASTATIN CALCIUM 40 MG TABS atorvastatin 96358361248 Teri Brito MA Medications Administered No information [...]
--- OUTSIDE RECORDS SUMMARY | 2025-01-29 11:38 | XMS_ITS | Encounter Summary ---
Author Organization [facility] [address] Care Team Providers Care Microphone Boom Operator Name Role Phone Temi Isabel MARCELO Primary Care Provider [phone] Gaye Stern MD Primary Care Provi Rene Sage MD Primary Care Provider [phone] Encounter Details Date Type Department Care Team (Late st Contact Info) Description 02/08/2021 Orders Only [facility] [address] [facility] [address] [place] [address] Jorden Cotton MD [address] [place], [place] [address] Social History Tobacco Use Types Packs/Day Years [...] 1:45 PM EST Office Visit [facility] [address] [place] [address] Jona Chau MD [address] [place] [address] 11/07/2025 1:30 PM EDT Office Visit [facility] [address] [facility] [address] [place] [address] 11/07/2025 2:00 PM EDT Office Visit [facility] [address] [facility] [address] [place] [address] Funmi Aldrich APRN [address] [place] [address] documented as of this encounter [...] v/uMark Mobley RN/CDS. us Jorden Cotton MD [facility] CARDIAC CATH ORDERAB LES Final Result [facility] 1 [place] [address] documented in this encounter Visit Diagnoses Not on filedocumented in this encounter Care Teams Microphone Boom Operator Relationship Specialty Start Date End Date Temi Isabel APRN [address] [facility] [place] [phone] PCP - General Nurse Practitioner-Family 08/11/2002/07 Gaye Stern MD [address] [place] [address] PCP - General Family Medicine 04/26/22 10/03/23 Rene Carsuo MD [facility] [address] [place] [phone] PCP - General Family Medicine 10/05/23 documented as of this encounter
--- OUTSIDE RECORDS SUMMARY | 2025-01-29 11:38 | XMS_ITS | Encounter Summary ---
Author Organization [place] [address] Care Team Providers Care Early Head Start Teacher Name Role Phone Temi Isabel APRN Primary Care Provider [phone] Reena Benson RN Unavailable Unavailable Helder Yung MD Primary Care Provider [phone] Temi Isabel APRN Primary Care Provider [phone] Gaye Stern MD Primary Care Provi sonal Unavailable Rene Caruso MD Primary Care Provider [phone] Encounter Details Date Type Department Care Team (Late st Contact Info) Description 10/27/2019 Orders Only [facility] [address] [facility] [address] [place] [address] Jorden Cotton MD [address] [place] [address] Social History Tobacco Use Types Packs/Day Years [...] 1:45 PM EST [place] [address] Jona Chau MD [address] [place] [address] 11/07/2025 1:30 PM EDT Office Visit [facility] [address] [facility] [address] [place] [address] 11/07/2025 2:00 PM EDT Office Visit [facility] [address] [facility] [address] [place] [address] Funmi Aldrich APRN [address] [place] [address] documented as of this encounter [...] PM EDT) 10/27/2019 1:33 PM EDT Narrative [facility] - 10/28/2019 8:46 AM EDT [facility] notes Normal Device function, battery , leads function WNL, 1 AT/AF events 6 min. Alexandra Xiong RN us Jorden Cotton MD [facility] CATH ORDERAB LES Final Result [facility] 1 [place] [address] documented in this encounter Visit Diagnoses Not on filedocumented in this encounter Care Teams Early Head Start Teacher Relationship Specialty Start Date End Date Temi Isabel APRN [address] [place] [address] PCP - General Nurse Practitioner-Family 02/27/1707/10 Helder Yung MD [address] [place] [address] [place] [address] PCP - General Family Medicine 07/23/20 08/10/20 Temi Isabel APRN [address] [place] [address] [place] [address] PCP - General Nurse Practitioner-Family 08/11/2002/07 Gaye Stern MD [address] [place] [address] [place] [address] PCP - General Family Medicine 04/26/22 10/03/23 Rene Caruso MD [facility] [address] [place] [address] PCP - General Family Medicine 10/05/23 Reena Benson, SHA Marketing Producer Registered Nurse 10/31/19 12/31/19 documented as of this encounter
--- OUTSIDE RECORDS SUMMARY | 2025-01-29 11:38 | XMS_ITS | Encounter Summary ---
Author Organization [place] [address] Care Team Providers Care Cable Tester Name Role Phone Temi Isabel APRN Primary Care Provider [phone] Reena Benson RN Unavailable Unavailable Helder Yung MD Primary Care Provider [phone] Temi Isabel APRN Primary Care Provider [phone] Gaye Stern MD Primary Care Provi sonal Unavailable Rene Caruso MD Primary Care Provider [phone] Encounter Details Date Type Department Care Team (Late st Contact Info) Description 10/22/2019 Orders Only [facility] [address] [facility] [address] [place] [address] Jorden Cotton MD [address] [place], [place] [address] Social History Tobacco Use Types Packs/Day Years [...] 1:45 PM EST Office Visit [facility] [address] [address] Jona Chau MD [address] [place] [address] 11/07/2025 1:30 PM EDT Office Visit [facility] [address] [place] [address] 11/07/2025 2:00 PM EDT Office Visit [facility] [address] [place] [address] Funmi Aldrich APRN [address] [place], [place] [phone] documented as of this encounter Goals Goal [...] EDT) 10/22/2019 12:1 5 PM EDT Narrative [facility] - 10/22/2019 9:54 AM EDT [facility] transmission for POD #1 check. Karly Barrera, RN, BSN us Jorden Cotton MD [facility] CARDIAC CATH ORDERAB LES Final Result [facility] 1 [place] [address] documented in this encounter Visit Diagnoses Not on filedocumented in this encounter Care Teams Cable Tester Relationship Specialty Start Date End Date Temi Isabel APRN [address] [place] [address] [place] [address] PCP - General Nurse Practitioner-Family 02/27/1707/10 Helder Yung MD [address] [place] [address] [place] [address] PCP - General Family Medicine 07/23/20 08/10/20 Temi Isabel APRN [address] [place] [address] [place] [address] PCP - General Nurse Practitioner-Family 08/11/2002/07 Gaye Stern MD [address] [place] [address] [place] [address] PCP - General Family Medicine 04/26/22 10/03/23 Rene Caruso MD [address] [place] [phone] PCP - General Family Medicine 10/05/23 Reena Benson, RN Door Liner Registered Nurse 10/31/19 12/31/19 documented as of this encounter
--- OUTSIDE RECORDS SUMMARY | 2025-01-29 11:38 | XMS_ITS | Clinical Summary ---
Author Organization [facility] Address [address] [place] [address] Care Team Providers Care Global Account Executive Name Role Phone Alvarez Jaimes MD Unavailable [phone] Scottie Reid MD Primary Care Provider [phone] Allergies Active Allergy Reactions Criticality Noted Date [...] series) 12/08/2031 Medical Devices Implanted Type Area Retail Merchandising Manager Device Identifier Shelf Expiration Date Model / Serial / Lot Cervical Tissue 4.75 X 6.22mm Implanted:Qty : 1 on 01/24/2008 at [facility] Spine Cervical * [facility] [id number] / -[id number] Cervical Tissue 4.75 X 6.22mm Implanted:Qty : 1 on 01/24/2008 at [facility] Spine Cervical * [facility] [id number] / -[id number] Cervical Tissue 4.75 X 6.22mm Implanted:Qty : 1 on 01/24/2008 at [facility] Spine Cervical * [facility] [id number] / -[id number] Plate 48mm Implanted:Qty : 1 on 01/24/2008 at [facility] Spine Cervical * xiao qu wu you [id number] / / Screw 14mm Implanted:Qty : 8 on 01/24/2008 at [facility] Spine Lumbar * xiao qu wu you [id number] / / [employer]+ Acp, 3 Level, 48mm - S1 Implanted:Qty : 1 on 08/06/2009 at [facility] N/A: Spine Cervical * USE JJ DEPU [id number] / / Screw Oversize 14mm - S1 Implanted:Qty : 8 on 08/06/2009 at [facility] N/A: Spine Cervical * USE J DEPU [id number] / / Insurance [employer] MEDICARE Advance Directives For more information, please contact: [phone] * Full Code (Latest Code Status on File) Date Activated Date Inactivated Comments 05/20/2022 2:32 PM Care Teams Global Account Executive Relationship Specialty Start Date End Date Scottie Reid MD [address] [place] [id number] PCP - General Family Medicine 05/13/22 Alvarez Jaimes MD [address] [place] [address] Orthopedic Surgery 05/10/22
--- OUTSIDE RECORDS SUMMARY | 2025-01-29 11:40 | XMS_ITS | Continuity of Care Document ---
Author Organization [facility] BUSINESS OFFICE Address [facility] [address] [place] [address] Care Team Providers Care Milk Runner Name Role Phone Yuli Caruso MD Primary Care Provider [phone] Encounters Date Type Department Care Team Description 01/10/2025 Orders Only [facility] [address] [place] [address] [place] [phone] Radha Cotton MD Vector Remote Device 01/09/2025 Orders Only [facility] [address] [place] [address] [place] [phone] Radha Cotton MD Vector Remote Device 12/10/2024 Orders Only [facility] [address] [place] [address] [place] [phone] Radha Cotton MD Vector Remote Device 12/05/2024 Results Follow-Up [facility] [address] [facility] [address] [place] [phone] Funmi Aldrich APRN EC ECHOCARDIOGRAM COMPLETE W DOPPLER AND COLOR FLOW MAPPING 12/05/2024 2:00 PM EDT Office Visit [facility] [address] [phone] René Brown MD Status post total hip replacement, right (Primary Dx) 12/03/2024 9:15 AM EDT - 12/03/2024 11:59 PM EDT Hospital Encounter [facility] [address] [place] [address] René Nicholas PA-C Status post total hip replacement, right Discharge Disposition: Home or Self Care 12/03/2024 9:15 AM EDT - 12/03/2024 11:59 PM EDT Hospital Encounter [facility] [address] [place] [address] René Nicholas PA-C Discharge Disposition: Home or Self Care 12/03/2024 9:15 AM EDT - 12/03/2024 11:59 PM EDT Hospital Encounter [facility] ECHO [address] [place] [address] Funmi Aldrich APRN [place] (ventricular tachycardia) ([facility]); Healthcare maintenance; Shortness of breath Discharge Disposition: Home or Self Care 11/25/2024 Telephone [employer] [address] [place] [address] Jose Solorio MD Other (RF Gabapentin) 11/25/2024 [facility]phone [facility] [address] [place] [address] René Brown MD Other (schedule f/p) 11/25/2024 Telephone [facility] [address] [place] [address] [address] [place] [address] Radha Cotton MD Medication Refill (metoprolol succinate ER (TOPROL-XL) 100 mg Oral Tablet Sustained Release 24 hr) 11/21/2024 Orders Only [facility] [address] [place] [address] [address] [place] [address] Radha Cotton MD Vector Remote Device 11/14/2024 1:30 PM EDT Ancillary Procedure [address] [address] René Nicholas PA-C Status post total hip replacement, right 11/14/2024 1:15 PM EDT Office Visit [address] [address] René Nicholas PA-C Status post total hip replacement, right (Primary Dx) 11/11/2024 Telephone Structural Hrt/Valve [address] [place] [address] [address] [place] [address] Jacque Ahn, SHA Other 11/07/2024 Orders Only [facility] [address] [place] [address] [address] [phone] Radha Cotton MD Vector Remote Device 11/07/2024 2:30 PM EDT Office Visit [facility] [address] [place] [address] [address] [place] [place] [phone] Funmi Aldrich APRN Healthcare maintenance (Primary Dx); VT (ventricular tachycardia) ([facility]); Shortness of breath 11/07/2024 2:00 PM EDT Office Visit [facility] [address] [place] [address] [address] [place] [phone] Dejon Mcqueen MA Ischemic cardiomyopathy (Primary Dx); Implantable defibrillator reprogramming/check; ICD (implantable cardioverter-defibril lator), single, in situ 10/23/2024 [place] [address] Jona Chau MD Cardiology Clearance 10/23/2024 [place] [address] Jona Chau MD Cardiology Clearance (([facility])) 10/18/2024 Telephone [facility] [address] [phone] Funmi Aldrich APRN Reschedule 10/07/2024 Orders Only [facility] [address] [place] [address] [place] [phone] Radha Cotton MD Vector Remote Device 10/06/2024 Orders Only [facility] [address] [place] [phone] Radha Cotton MD Vector Remote Device 10/02/2024 Refill [facility] [address] [address] Jona Chau MD Medication Refill 09/24/2024 Telephone [facility] [place] [address] [place] [address] Michela Castañeda, RT Follow-up 09/23/2024 Travel 09/23/2024 12:00 PM EDT Anesthesia Event [facility] [address] [place] [id number] Jose Amador, Howard Nichole, 09/23/2024 11:30 AM EDT - 09/23/2024 11:59 PM EDT Hospital Encounter [facility] [address] [place] [phone] Dejon Capone MD Costantini, Oren M, Margarita Hyatt, DAMIAN Non-pressure chronic ulcer of right lower leg, unspecified ulcer stage (HCC); Coronary artery disease due to calcified coronary lesion Discharge Disposition: Home or Self Care 09/19/2024 12:20 PM EDT - 09/19/2024 11:59 PM EDT Hospital Encounter [facility] [place] [id number] PAD (peripheral artery disease); Coronary artery disease due to calcified coronary lesion Discharge Disposition: Home or Self Care 09/19/2024 11:15 AM EDT Office Visit [facility] [place] [address] [place] [address] Jyothi Decker PA-C PAD (peripheral artery disease) (Primary Dx) 09/11/2024 Orders Only [facility] [place] [address] [place] [address] Michela Castañeda, RT PAD (peripheral artery disease) (Primary Dx); Coronary artery disease due to calcified coronary lesion 09/10/2024 Telephone [facility] [place] [address] [place], [place] [phone] Jona Chau MD Cardiology Clearance 09/05/2024 Orders Only [facility] [address] [facility] [address] [place] [address] Radha Cotton MD Vector Remote Device 08/23/2024 Telephone [facility] [place] [address] [place] [address] Michela Castañeda, RT Confirmation 08/18/2024 Refill [facility] [place] [address] [place] [phone] Jona Chau MD Medication Refill 08/07/2024 Telephone [facility] [place] [address] [place] [address] Michela Castañeda, RT Schedule Appointment 08/05/2024 Orders Only [facility] [address] [facility] [address] [place] [address] Radha Cotton MD Vector Remote Device 08/01/2024 2:15 PM EST Office Visit [facility] [address] [place] [address] Alvarez Alejo MD Lumbar spondylosis (Primary Dx) 07/22/2024 Telephone [facility] [place] [address] [place] [address] Michela Castañeda, RT Schedule Appointment 07/19/2024 10:30 AM EST - 07/19/2024 11:59 PM EST Hospital Encounter [facility] [place] [address] Jose Solorio MD Lumbar foraminal stenosis; Lumbar spondylosis; Degeneration of intervertebral disc of lumbar region with discogenic back pain; Lumbar pain; Myofascial pain; SI (sacroiliac) joint dysfunction Discharge Disposition: Home or Self Care 07/18/2024 [facility] [address] [employer] [place] [phone] Na Mathis, [facility] 07/17/2024 11:00 AM EST [facility] [address] [facility] [address] [place] [address] Alvarez Alejo MD Lumbar spondylosis (Primary Dx) 07/16/2024 Orders Only [facility] [place] [address] [place] [address] Michela Castañeda, RT Non-pressure chronic ulcer of right lower leg, unspecified ulcer stage (HCC) (Primary Dx) 07/09/2024 2:30 PM EST Ancillary Procedure [facility] [address] [place] [address] René Nicholas, PA-C Status post total hip replacement, right 07/09/2024 2:15 PM EST Office Visit [facility] [address] [place] [address] René Nicholas, PA-C Status post total hip replacement, right (Primary Dx) 07/06/2024 [place] [address] Vernell Bejarano APRN Medication Refill 07/05/2024 Orders Only [facility] [address] [place], [place] [phone] Radha Cotton MD Vector Remote Device 07/05/2024 Telephone [facility] [address] [place] [phone] Temi Timmons MA Results 07/04/2024 Orders Only [facility] [address] [place] [phone] Radha Cotton MD Vector Remote Device 07/02/2024 [place] [address] Jona Chau MD Medication Refill 06/27/2024 8:45 AM EST [facility] [address] [place] [address] Alvarez Alejo MD Lumbar spondylosis (Primary Dx); Lumbar foraminal stenosis; Degeneration of intervertebral disc of lumbar region with discogenic back pain 06/26/2024 Orders Only [facility] [address] [facility] [address] [place] [address] Ceci Simms MA Lumbar foraminal stenosis (Primary Dx); Lumbar spondylosis; Degeneration of intervertebral disc of lumbar region with discogenic back pain; Lumbar pain; Myofascial pain; SI (sacroiliac) joint dysfunction 06/26/2024 6:44 PM EST - 06/26/2024 11:59 PM EST Hospital Encounter [facility] [place] [facility] [address] [place] [address] Dejon Capone MD Non-pressure chronic ulcer of right lower leg, unspecified ulcer stage (HCC) Discharge Disposition: Home or Self Care 06/25/2024 Telephone [facility] [place] [address] [facility] [address] [place] [address] Theresa Goff, Supervisor Blueprinting And Photocopy New Patient 06/25/2024 Orders Only [facility] [address] [facility] [address] [place] [address] Ceci Simms MA Lumbar foraminal stenosis (Primary Dx); Lumbar spondylosis; Degeneration of intervertebral disc of lumbar region with discogenic back pain; Lumbar pain; Myofascial pain 06/25/2024 Telephone [facility] [address] [phone] Jose Solorio MD 06/13/2024 Travel 06/13/2024 2:15 PM EST Office Visit [facility] [place] [address] Jona Chau MD ASHD (arteriosclerotic heart disease) (Primary Dx) 06/12/2024 Telephone [facility] [address] [place] [address] Michela Castañeda RT Follow-up 06/12/2024 10:48 AM EST - 06/12/2024 11:59 PM EST Hospital Encounter [facility] E[facility] [address] [place] [address] Vernell Bejarano APRN Paroxysmal atrial fibrillation (HCC); Chronic systolic heart failure (HCC); Coronary artery disease involving [place]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; Primary hypertension; Mitral valve disease; Hx of mitral valve replacement; PAD (peripheral artery disease); S/P CABG x 2; single chamber ICD Discharge Disposition: Home or Self Care 06/11/2024 Orders Only [facility] [place] [address] [place] [address] Michela Castañeda, RT Non-pressure chronic ulcer of right lower leg, unspecified ulcer stage (HCC) (Primary Dx) 06/11/2024 3:00 PM EST Office Visit [facility] [place] [address] [place] [address] Dejon Capone MD Leg swelling (Primary Dx) 06/11/2024 2:00 PM EST Clinical Support [facility] [place] [address] [place] [address] Varicose veins of leg with edema, right (Primary Dx) 06/03/2024 Orders Only [facility] [address] [phone] Radha Cotton MD Vector Remote Device 05/24/2024 Refill [facility] [address] [address] Ceci Simms MA Medication Refill 05/24/2024 10:30 AM EST Office Visit [facility] [address] [address] Jose Solorio MD Lumbar foraminal stenosis (Primary Dx); Lumbar spondylosis; Degeneration of intervertebral disc of lumbar region with discogenic back pain; Lumbar pain; Myofascial pain; SI (sacroiliac) joint dysfunction; Pain in other specified joint; Low back pain, unspecified back pain laterality, unspecified chronicity, unspecified whether sciatica present; Postlaminectomy syndrome 05/03/2024 Orders Only [facility] [address] [facility] [address] [place] [phone] Radha Cotton MD Vector Remote Device 04/26/2024 Telephone [facility] [address] [place] [address] Arsen Kerr MD Missed Appointment (pt thought this appt was cancelled, he declined a r/s appt) 04/25/2024 Telephone [facility] [address] [place] [address] [place] [phone] Nicole Jacobsen (MDT ICD. Carelink monitor. ) 04/25/2024 9:30 AM EDT Office Visit [facility] [address] [facility] [address] [place], [place] [phone] René Perea MD SI (sacroiliac) joint dysfunction (Primary Dx) 04/22/2024 Telephone [facility] [place] [address] [place] [address] Sofia Maciel MA Follow-up 04/19/2024 Telephone [facility] [address] [phone] Jona Chau MD Medication Refill 04/17/2024 1:30 PM EDT Office Visit [facility] [address] [place] [address] [place] [phone] Theodora Barrera RN Ischemic cardiomyopathy (Primary Dx); Chronic systolic heart failure (HCC); Cardiac arrest with ventricular fibrillation (HCC); ICD (implantable cardioverter-defibril lator), single, in situ; Paroxysmal atrial fibrillation (HCC); Implantable defibrillator reprogramming/check 04/17/2024 2:00 PM EDT Office Visit [facility] [address] [place] [address] [place] [phone] Radha Cotton MD Paroxysmal atrial fibrillation (HCC) (Primary Dx); ICD (implantable cardioverter-defibril lator), single, in situ 04/16/2024 1:30 PM EDT Office Visit [facility] [place] [address] [place] [address] Dejon Capone MD Varicose veins of leg with edema, right (Primary Dx); Non-pressure chronic ulcer of right lower leg, unspecified ulcer stage (HCC); Varicose veins of leg with pain, right 04/12/2024 Telephone [facility] [address] [facility] [address] [place] [address] Evangelina Xiong RN Results (Carelink alert for shock delivered for VF @ 300 bpm) 04/11/2024 Orders Only [facility] 7[address] [facility] [address] [place] [address] Radha Cotton MD Vector Remote Device 04/05/2024 1:00 PM EDT Office Visit [facility] [address] [facility] [address] [place] [address] Theresa Corona PA SI (sacroiliac) joint dysfunction (Primary Dx); Sacroiliac joint pain; Sacroiliitis, not elsewhere classified; Chronic low back pain, unspecified back pain laterality, unspecified whether sciatica present 04/04/2024 Refill [facility] [place] [address] [place] [address] Jona Chau MD Medication Refill 04/02/2024 2:50 PM EDT Ancillary Procedure [facility] [address] [place] [address] René Brown MD Status post hip replacement, right 04/02/2024 2:30 PM EDT Office Visit [facility] [address] [place] [address] René Brown MD Status post hip replacement, right (Primary Dx); Chronic low back pain, unspecified back pain laterality, unspecified whether sciatica present 03/29/2024 1:54 PM EDT - 03/29/2024 11:59 PM EDT Hospital Encounter [facility] [place] [address] [place] [address] Arsen Kerr MD Non-pressure chronic [...] Orders Only [facility] [address] [facility] [address] [place] [address] Radha Cotton MD Vector Remote Device 03/22/2024 Telephone [facility] [place] [address] [place] [address] Devaughn Paris MD Missed Appointment (Got caught in traffic. Rescheduled for 03/29) 03/21/2024 10:15 AM EDT Office Visit [facility] [address] [place] [address] René Perea MD DDD (degenerative disc disease), lumbar (Primary Dx); Sacroiliitis, not elsewhere classified 03/14/2024 2:15 PM EDT Ancillary Procedure [facility] [address] [address] Theresa Corona PA DDD (degenerative disc disease), lumbar 03/14/2024 2:00 PM EDT Office Visit [facility] [address] [address] Theresa Corona PA DDD (degenerative disc disease), lumbar (Primary Dx); Sacroiliac joint pain; SI (sacroiliac) joint dysfunction; Chronic low back pain, unspecified back pain laterality, unspecified whether sciatica present; Lumbar degenerative disc disease; Lumbar foraminal stenosis; Lumbar spondylosis; Lumbar radiculopathy; Lumbar pain; Myofascial pain 03/08/2024 3:13 PM EDT - 03/08/2024 11:59 PM EDT Hospital Encounter [facility] [place] [address] [place] [address] Devaughn Paris MD Edema of both lower legs due to peripheral venous insufficiency (Primary Dx); Venous stasis ulcer of left lower leg with edema of left lower leg (HCC); Non-pressure chronic ulcer of right lower leg with fat layer exposed (HCC); Non-pressure chronic ulcer of left lower leg, with fat layer exposed (HCC) Discharge Disposition: Home or Self Care 03/01/2024 Telephone [facility] [place] [address] [place] [address] Devaughn Paris MD Follow-up (Left VM asked pt to schedule apt with WC) 02/29/2024 [place] [address] René Nicholas PA-C 02/23/2024 2:45 [place] [address] René Nicholas PA-C DDD (degenerative disc disease), lumbar (Primary Dx); Status post hip replacement, right; Chronic left SI joint pain 02/16/2024 3:35 PM EDT - 02/16/2024 11:59 PM EDT Hospital Encounter [facility] Wound Care [place] [address] 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 [address] Dejon Capone MD Bilateral leg edema Discharge Disposition: Home or Self Care 02/09/2024 3:25 PM EDT - 02/09/2024 3:28 PM EDT Hospital Encounter [facility] [place] [address] [place] [address] Paroxysmal atrial fibrillation (HCC); Chronic systolic heart failure (HCC); Coronary artery disease involving [place]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; Primary hypertension; Mitral valve disease; Hx of mitral valve replacement; PAD (peripheral artery disease); S/P CABG x 2; single chamber ICD; Bilateral leg edema Discharge Disposition: Home or Self Care 02/09/2024 3:29 PM EDT - 02/09/2024 11:59 PM EDT Hospital Encounter [facility] Wound Care [place] [address] [place] [address] Dejon Capone MD Non-pressure chronic ulcer of right lower leg with fat layer exposed (HCC) (Primary Dx); Non-pressure chronic ulcer of other part of left lower leg with fat layer exposed (HCC); Edema of both lower legs due to peripheral venous insufficiency; Venous insufficiency Discharge Disposition: Home or Self Care 02/08/2024 3:20 PM [place] [address] René Nicholas PA-C Status post hip replacement, right 02/08/2024 4:00 [place] [address] René Nicholas PA-C Status post hip replacement, right (Primary Dx) 02/02/2024 2:00 PM EDT - 02/02/2024 11:59 PM EDT Hospital Encounter [facility] [place] [address] [address] [facility] [place] [address] Devaughn Paris MD Non-pressure chronic ulcer of right lower leg with fat layer exposed (HCC) (Primary Dx); Non-pressure chronic ulcer of other part of left lower leg with fat layer exposed (HCC); Edema of both lower legs due to peripheral venous insufficiency Discharge Disposition: Home or Self Care 01/30/2024 Orders Only [facility] [place] [address] [place] [address] Michela Castañeda RT Bilateral leg edema (Primary Dx) 01/30/2024 Telephone [facility] [place] [address] [place] [address] Michela Castañeda RT Confirmation; Follow-up 01/29/2024 2:00 PM EDT Office Visit [facility] [place] [address] Vernell Bejarano APRN Paroxysmal atrial fibrillation (HCC) (Primary Dx); Chronic systolic heart failure (HCC); Coronary artery disease involving [place]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; Primary hypertension; Mitral valve disease; Hx of mitral valve replacement; PAD (peripheral artery disease); S/P CABG x 2; single chamber ICD 01/28/2024 Travel 01/26/2024 3:30 PM EDT - 01/26/2024 11:59 PM EDT Hospital Encounter [facility] W[facility] [place] [address] [place] [address] Devaughn Paris MD Non-pressure chronic ulcer of right lower leg with fat layer exposed (HCC) (Primary Dx); Non-pressure chronic ulcer of other part of left lower leg with fat layer exposed (HCC) Discharge Disposition: Home or Self Care 01/23/2024 Telephone [facility] [place] [address] [place] [address] Michela Castañeda, RT Schedule Appointment 01/23/2024 11:00 AM EDT Office Visit [facility] [place] [address] [place] [address] Dejon Capone MD Symptom of leg swelling (Primary Dx) 01/23/2024 9:00 AM EDT Office Visit [facility] [place] [address] [place] [address] Edema of both lower legs due to peripheral venous insufficiency (Primary Dx) 01/19/2024 2:00 PM EDT - 01/19/2024 11:59 PM EDT Hospital Encounter [facility] W[facility] Center [address] 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 (HCC) (Primary Dx); Edema of both lower legs due to peripheral venous insufficiency; Non-pressure chronic ulcer of other part of left lower leg with fat layer exposed (HCC) Discharge Disposition: Home or Self Care 01/16/2024 Orders Only [facility] [place] [address] [place], [place] [phone] Michela Castañeda, RT Bilateral leg edema (Primary Dx) 01/09/2024 Refill [facility] [place] [address] [place] [address] René Brown MD Medication Refill 01/09/2024 2:15 PM EDT Ancillary Procedure [facility] [address] [place] [address] René Nicholas PA-C Status post hip replacement, right 01/09/2024 2:00 PM EDT Office Visit [facility] [address] [place] [address] René Nicholas PA-C Status post hip replacement, right (Primary Dx) 01/07/2024 Travel 12/29/2023 Telephone [facility] W[facility] Center [place] [address] [facility] [place] [address] Ame Chirinos RN Cancelled Appointment 12/27/2023 Orders Only [facility] [address] [facility] [address] [place] [address] Radha Cotton MD Vector Remote Device 12/27/2023 Travel 12/27/2023 12:30 PM EDT - 12/27/2023 2:50 PM EDT Surgery [facility] [address] [place] [address] René Brown MD TOTAL HIP ARTHROPLASTY/REPLACEM ENT-ANTERIOR OR REVISION ANTERIOR (CHELLY/KAUSHIK) 12/27/2023 12:16 PM EDT Anesthesia Event [facility] [address] [place] [address] Howard Acuña, DO Record, Lanie Puga, ABLE BODIED TANKERMAN 12/27/2023 10:44 AM EDT - 12/27/2023 7:04 PM EDT Hospital Encounter [facility] [address] [place] [phone] René Brown MD Discharge Disposition: Home or Self Care 12/26/2023 Orders Only [facility] [address] [facility] [address] [place] [address] Radha Cotton MD Vector Remote Device 12/25/2023 Travel 12/25/2023 2:45 PM EDT - 12/25/2023 11:59 PM EDT Hospital Encounter [facility] PRE-ADMIT TESTING [facility] [place] [address] Preop testing (Primary Dx); Anticoagulation adequate Discharge Disposition: Home or Self Care 12/22/2023 Orders Only [facility] [address] [place] [address] René Brown MD Osteoarthritis of one hip, right (Primary Dx) 12/22/2023 [place] [address] René Brown MD Surgery Scheduling 12/22/2023 2:57 PM EDT - 12/22/2023 11:59 PM EDT Hospital Encounter [facility] Wound Care [place] [address] [place] [address] Devaughn Paris MD Edema of both lower legs due to peripheral venous insufficiency (Primary Dx) Discharge Disposition: Home or Self Care 12/21/2023 Telephone [place] [phone] René Brown MD Other 12/20/2023 2:00 PM EDT Office Visit [facility] [address] [place] [address] Gabrielle Alexander, DPM Ingrowing nail (Primary Dx); Pyogenic granuloma of skin; Pain in toe of right foot 12/19/2023 Telephone [place] [phone] René Brown MD Other 12/15/2023 3:00 PM EDT - 12/15/2023 11:59 PM EDT Hospital Encounter [facility] Wound Care Center [place] [address] [place] [address] Dejon Capone MD Venous insufficiency (Primary Dx) Discharge Disposition: Home or Self Care 12/08/2023 2:30 PM EDT - 12/08/2023 11:59 PM EDT Hospital Encounter [facility] Wound Care [place] [address] 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 [address] Kayleen Turcios Follow-up 12/03/2023 [place] [address] Jona Chau MD Medication Refill 12/01/2023 Orders Only [facility] [address] [place] [phone] Radha Cotton MD Vector Remote Device 12/01/2023 Telephone [facility] [address] [place] [phone] René Brown MD Other 11/30/2023 Refill [facility] [place] [id number] Jona Chau MD Medication Refill 11/30/2023 2:30 PM EDT Office Visit [facility] [address] [place] [phone] Funmi Aldrich APRN Paroxysmal atrial fibrillation (HCC) (Primary Dx); NSTEMI (non-ST elevated myocardial infarction) (HCC); Coronary artery disease involving [place]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; Ventricular fibrillation (HCC); single chamber ICD; Acute on chronic HFrEF (heart failure with reduced ejection fraction) (HCC); Hx of mitral valve replacement; NSVT (nonsustained ventricular tachycardia) (HCC) 11/30/2023 2:00 PM EDT Office Visit [facility] [address] [place] [phone] Evangelina Xiong RN Presence of automatic cardioverter/defibril lator (AICD) (Primary Dx); Implantable defibrillator reprogramming/check; Paroxysmal atrial fibrillation (HCC); Cardiogenic shock (HCC); Ventricular fibrillation (HCC); Chronic systolic heart failure (HCC) 11/28/2023 11:59 PM EDT Anesthesia Event EDG SURGERY [facility] [address] Mackenzie Irwin APRN 11/28/2023 1:00 PM EDT Office Visit [facility] [place] [facility] [address] [place] [address] Dejon Capone MD Bilateral leg edema (Primary Dx) 11/27/2023 Travel 11/24/2023 Orders Only [facility] [address] [place] [id number] René Brown MD Osteoarthritis of one hip, right (Primary Dx) 11/23/2023 [place] [address] Jona Chau MD Cardiology Clearance 11/23/2023 2:25 PM [place] [address] René Brown MD Osteoarthritis of one hip, right 11/23/2023 2:00 [place] [address] René Brown MD Osteoarthritis of one hip, right (Primary Dx) 11/21/2023 10:01 AM EDT - 11/21/2023 11:59 PM EDT Hospital Encounter [facility] Wound Care Center [place] [address] Alireza Clifton PA-C Venous stasis ulcer of right lower leg with edema of right lower leg (HCC) (Primary Dx); Venous insufficiency Discharge Disposition: Home or Self Care 11/14/2023 10:04 AM EDT - 11/14/2023 11:59 PM EDT Hospital Encounter [facility] [place] [address] Alireza Clifton PA-C Venous stasis [...] or Self Care 11/07/2023 Telephone [facility] [place] [address] [place] [address] Harsha Hayward, RT Follow-up 11/07/2023 10:10 AM EDT - 11/07/2023 11:59 PM EDT Hospital Encounter [facility] [address] [place] [address] Alireza Clifton PA-C Venous stasis ulcer of other part of right lower leg limited to breakdown of skin, unspecified whether varicose veins present (HCC) (Primary Dx); Venous stasis ulcer of right lower leg with edema of right lower leg (HCC); Venous insufficiency; Venous ulcer with fat layer exposed (HCC) Discharge Disposition: Home or Self Care 11/01/2023 [place] [address] René Brown MD Other 10/31/2023 10:00 AM EDT - 10/31/2023 11:59 PM EDT Hospital Encounter [facility] [place] [address] [place] [address] Alireza Clifton PA-C Venous stasis ulcer of right lower leg with edema of right lower leg (HCC) (Primary Dx); Chronic venous hypertension (idiopathic) with ulcer and inflammation of right lower extremity (HCC); Venous insufficiency Discharge Disposition: Home or Self Care 10/23/2023 12:17 PM EDT - 10/23/2023 11:59 PM EDT Hospital Encounter [facility] [place] [address] [place] [address] Alireza Clifton PA-C Chronic venous hypertension (idiopathic) with ulcer and inflammation of right lower extremity (HCC) (Primary Dx); Venous stasis ulcer of right lower leg with edema of right lower leg (HCC); Venous ulcer with fat layer exposed (HCC); Chronic systolic heart failure (HCC); Paroxysmal atrial fibrillation (HCC) Discharge Disposition: Home or Self Care 10/19/2023 [place] [address] Jona Chau MD Medication Refill 10/17/2023 Telephone [facility] [place] [address] [place], [place] [phone] Jona Chau MD Medication Question 10/17/2023 [place] [address] René Brown MD Other (cancel surgery) 10/17/2023 11:15 [place] [address] René Brown MD Open wound of right lower leg, initial encounter (Primary Dx); Osteoarthritis of one hip, right 10/12/2023 Telephone EDG PRE-ADMIT TESTING [facility] [place] [address] Chanell Kothari RN Cardiology Clearance 10/11/2023 [place] [address] René Brown MD Other 10/11/2023 Travel 10/11/2023 Telephone [facility] [address] [address] Jona Chau MD Cardiology Clearance 10/11/2023 12:45 PM EDT - 10/11/2023 11:59 PM EDT Hospital Encounter [facility]G PRE-ADMIT TESTING [facility] [place] [address] Discharge Disposition: Home or Self Care 10/11/2023 2:30 PM EDT Office Visit [facility] [address] [address] Arnulfo Sequeira MD Paroxysmal atrial fibrillation (HCC) (Primary Dx); Coronary artery disease involving [place]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; NSTEMI (non-ST elevated myocardial infarction) (HCC); Chronic systolic heart failure (HCC); Hx of mitral valve replacement; S/P CABG x 2; Primary hypertension 10/05/2023 Telephone CLINICAL OUTCOMES [facility] [place] [address] Margarita Díaz, SHA Follow-up (HF) 10/04/2023 Telephone [facility] [place] [address] [place] [address] Michelle De La O, RN Hospital Follow Up 10/04/2023 Patient Outreach [facility] [address] [facility] 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 [facility] [place] [address] Vinnie Crowell MD CORONARY ANGIOGRAM WITH GRAFTS / CARDIAC CATHETERIZATION 09/30/2023 2:09 PM EDT - 10/03/2023 6:27 PM EDT Hospital Encounter [place] [address] Amber Fuller MD Elliott, Andrew Wentworth, MD Jaligama, Deepthi, MD Chest pain, unspecified type (Primary Dx); Shortness of breath; Lower extremity edema Discharge Disposition: Home or Self Care 09/30/2023 Travel 09/25/2023 Orders Only [facility] [address] [facility] [address] [place] [address] Radha Cotton MD Vector Remote Device 08/10/2023 Orders Only [facility] [address] [id number] René Brown MD Osteoarthritis of one hip, right (Primary Dx) 08/10/2023 1:45 PM EST Office Visit [facility] [address] [place] [address] René Brown MD Osteoarthritis of one hip, right (Primary Dx) 08/08/2023 [place] [address] Jona Chau MD Medication Refill 07/31/2023 [place] [address] Clara Barrett CMA Coronary artery disease involving [place]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 (Primary Dx); ASHD (arteriosclerotic heart disease); SOB (shortness of breath) 07/27/2023 1:02 PM EST - 07/27/2023 11:59 PM EST Hospital Encounter [facility] ECHO [address] [place] [address] [address] [place] [address] Jona Chau MD ASHD (arteriosclerotic heart disease); SOB (shortness of breath) Discharge Disposition: Home or Self Care 07/18/2023 Patient Outreach [facility] [address] [place] [address] Gaye Stern MD Central Order Completion Outreach (Colon) 07/06/2023 2:15 PM EST [place] [address] Jona Chau MD ASHD (arteriosclerotic heart disease) (Primary Dx); SOB (shortness of breath) 06/26/2023 Orders Only [facility] [address] [place] [address] [address] [place] [address] Radha Cotton MD Vector Remote Device 06/26/2023 Telephone [facility] [address] [place] [address] [address] [place] [address] Evangelina Xiong, RN Results (Carelink results) 06/07/2023 [place] [address] Jona Chau MD Medication Refill (Transfer to [facility] patient Losartan) 05/31/2023 3:00 PM EST - [...] [facility]P [facility] [address] [place] [address] Gaye Stern MD Screening for cancer of the rectum; Screen for colon cancer 03/31/2023 Telephone [facility] [address] [place] [phone] Gaye Stern MD Paperwork/forms (copies of xray and MRI ) 03/27/2023 Telephone [facility] [address] [place] [address] [place] [phone] Chu Sr RN ICD Check (Remote results) 03/26/2023 Orders Only [facility] [address] [place] [address] [place] [phone] Radha Cotton MD Vector Remote Device 03/18/2023 [place] [address] Jona Chau MD Medication Refill 02/20/2023 Orders Only [facility] [address] [place] [address] [place] [phone] Radha Cotton MD Vector Remote Device 02/20/2023 Telephone [facility] [address] [place] [address] [address] [place] [address] Chu Sr, RN ICD Check (Remote results) 02/14/2023 Travel 02/14/2023 3:00 PM EDT - 02/14/2023 11:59 PM EDT Hospital Encounter [facility] [address] [place] [address] Right hip pain Discharge Disposition: Home or Self Care 01/19/2023 Orders Only [facility] [address] [facility] [address] [place] [address] Radha Cotton MD Vector Remote Device 01/19/2023 Telephone [facility] [address] [place] [address] [address] [place] [address] Evangelina Xiong RN Results 01/09/2023 1:45 PM EDT - 01/09/2023 11:59 PM EDT Hospital Encounter [facility] [address] [place] [phone] Louis Yadav MD Radiculopathy, unspecified spinal region (Primary Dx) Discharge Disposition: Home or Self Care 01/09/2023 Travel 01/09/2023 12:29 PM EDT - 01/09/2023 1:44 PM EDT Hospital Encounter [facility] [address] [place] [address] Louis Yadav MD Radiculopathy, lumbar region Discharge Disposition: Home or Self Care 12/26/2022 Telephone [facility] [address] [place] [address] [place] [phone] Evangelina Xiong, RN Results (Carelink results-) 12/25/2022 Orders Only [facility] [address] [place] [address] [place] [phone] Radha Cotton MD Vector Remote Device 12/19/2022 Telephone [facility] [address] [place] [address] [place] [phone] Radha Cotton MD Other (Medication refill- Metoprolol ER 100 mg ) 11/23/2022 3:00 PM EDT Office Visit [facility] [address] [address] Michela Abarca APRN Chronic systolic heart failure (HCC) (Primary Dx); Class 1 obesity due to excess calories without serious comorbidity with body mass index (BMI) of 33.0 to 33.9 in adult; Mitral valve disease; Paroxysmal atrial fibrillation (HCC); ICD (implantable cardioverter-defibril lator), single, in situ 11/23/2022 2:30 PM EDT Office Visit [facility] [address] [address] Chu Sr RN Implantable defibrillator reprogramming/check (Primary Dx); Ventricular fibrillation (HCC); Paroxysmal atrial fibrillation (HCC); Chronic systolic heart failure (HCC); ICD (implantable cardioverter-defibril lator), single, in situ 11/18/2022 Orders Only [facility] [address] [address] Radha Cotton MD Vector Remote Device 11/18/2022 Telephone [facility] [address] [address] Radha Cotton MD Other (MDT ICD beeping); Results (Device alert is not set to go off at 4 AM- only at 8 AM) 11/17/2022 Refill [facility] [place] [id number] Jona Chau MD Medication Refill 11/15/2022 Orders Only [facility] [address] [address] Radha Cotton MD Vector Remote Device 11/14/2022 Telephone [facility] [address] [address] Nicole Jacobsen Other (Carelink monitor reset) 11/01/2022 Refill [facility] [address] [id number] Jona Chau MD Medication Refill 10/27/2022 1:45 PM EDT Office Visit [facility] [place] [address] [place] [address] Jona Chau MD ASHD (arteriosclerotic heart disease) (Primary Dx) 10/25/2022 Orders Only [facility] [address] [facility] [address] [place] [address] Radha Cotton MD Vector Remote Device 10/25/2022 Telephone [facility] [address] [place] [address] [address] [place] [address] Radha Cotton MD Other 10/24/2022 Refill [facility] [place] [address] [place] [phone] Jona Chau MD Medication Refill 09/26/2022 Telephone [facility] [address] [place] [address] [place] [phone] Nicole Jacobsen Other (Carelink report) 09/25/2022 Orders Only [facility] [address] [place] [address] [place] [phone] Radha Cotton MD Vector Remote Device 09/08/2022 Travel 09/08/2022 2:56 PM EST - 09/08/2022 11:59 PM EST Hospital Encounter [facility] [address] [place] [address] [facility] Carpal tunnel syndrome of left wrist (Primary Dx); Cervical radiculopathy Discharge Disposition: Home or Self Care 09/07/2022 Orders Only [facility] [address] [facility] [address] [place] [address] Alvarez Jaimes MD Cervical radiculopathy (Primary Dx) 07/20/2022 Patient Outreach [facility] [address] [place] [address] Gaye Stern MD Central Order Completion Outreach (Colon) 06/26/2022 Orders Only [facility] [address] [place] [address] [address] [place] [address] Radha Cotton MD Vector Remote Device 06/17/2022 Refill SEP &V [address] [address] Jona Chau MD Medication Refill 05/18/2022 Telephone [facility] [address] [address] Jona Chau MD Follow-up 05/16/2022 Orders Only [facility] [address] [place] [address] Gaye Stern MD Screening for cancer of the rectum; Screen for colon cancer 05/13/2022 Refill [facility] [address] [place] [address] [address] [place] [address] Michela Abarca APRN Medication Refill 04/28/2022 1:45 PM EDT Office Visit [facility] [address] Jona Chau MD ASHD (arteriosclerotic heart disease) (Primary Dx) 04/26/2022 Telephone [facility] [place] [address] [place] [address] Gaye Stern MD Medication Management (pt requesting meds removed from med list) 04/26/2022 1:20 PM EDT Office Visit [facility] [place] [address] [place] [address] Helder Yung MD Pre-op examination (Primary Dx); Chronic systolic heart failure (HCC); PAD (peripheral artery disease); Coronary artery disease involving [place]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; Atypical nevus; Paroxysmal atrial fibrillation (HCC) 04/22/2022 Refill [facility] [address] [address] Jona Chau MD Medication Refill 04/20/2022 Telephone [facility] [address] [address] Jona Chau MD Cardiology Clearance (error) 03/25/2022 Orders Only [facility] [address] [place] [phone] Radha Cotton MD Vector Remote Device 03/04/2022 Travel 03/04/2022 2:50 PM EDT - 03/04/2022 11:59 PM EDT Hospital Encounter [facility] [address] [place] [address] Lumbar radiculopathy; Spinal stenosis, unspecified spinal region Discharge Disposition: Home or Self Care 02/08/2022 1:00 PM EDT Office Visit [facility] [address] [phone] Chu Sr RN Encounter for implantable defibrillator reprogramming or check (Primary Dx); Cardiogenic shock (HCC); Ventricular fibrillation (HCC); Permanent atrial fibrillation (HCC); ICD (implantable cardioverter-defibril lator), single, in situ 02/08/2022 1:30 PM EDT Office Visit [facility] [address] [address] Radha Cotton MD ICD (implantable cardioverter-defibril lator), single, in situ (Primary Dx) 01/20/2022 [place] [address] Jona Chau MD Medication Refill 12/23/2021 Orders Only [facility] [address] [place] [phone] Radha Cotton MD Vector Remote Device 12/10/2021 Refill [facility] [place] [address] [place] [address] Jona Chau MD Medication Refill 11/09/2021 Refill [facility] [address] [place] [phone] Michela Abarca APRN Medication Refill 10/27/2021 2:30 PM EDT [place] [address] Jona Chau MD ASHD (arteriosclerotic heart disease) (Primary Dx) 10/26/2021 Travel 10/26/2021 12:03 PM EDT - 10/26/2021 11:59 PM EDT Hospital Encounter [facility] [address] [place] [address] [address] [place] [address] Jona Chau MD S/P CABG x 2; SOB (shortness of breath) Discharge Disposition: Home or Self Care 10/15/2021 Travel 10/15/2021 12:23 PM EDT - 10/15/2021 11:59 PM EDT Hospital Encounter [facility] [address] Louis Yadav MD Radiculopathy, lumbar region Discharge Disposition: Home or Self Care 09/23/2021 9:00 AM EDT Clinical Support [facility] [address] [place] [address] [address] [place] [address] Nicole Jacobsen ICD (implantable cardioverter-defibril lator), single, in situ (Primary Dx); Ventricular fibrillation (HCC); NSVT (nonsustained ventricular tachycardia) (HCC) 08/20/2021 Travel 08/20/2021 10:15 AM EST [place] [address] Jona Chau MD S/P CABG x 2 (Primary Dx); SOB (shortness of breath) 08/14/2021 Refill [facility] [address] [place] [address] [address] [place] [address] Michela bAarca APRN Medication Refill 07/20/2021 Orders Only [facility] [address] [place] [address] [address] [place] [address] Radha Cotton MD 07/14/2021 Orders Only [facility] [address] [place], [place] [address] Yasmeen Acosta, STEPH Chronic pain of left knee (Primary Dx) 07/12/2021 Travel 07/12/2021 2:45 PM EST - 07/12/2021 11:59 PM EST Hospital Encounter [facility] [address], [place] [address] Gaye Stern MD Chronic pain of left knee; History of knee joint replacement Discharge Disposition: Home or Self Care 07/09/2021 Travel 07/09/2021 11:10 AM EST Office Visit [facility] [address] [place], [place] [phone] Gaye Stern MD Chronic pain of left knee (Primary Dx); History of knee joint replacement 07/06/2021 Refill [facility] [place] [address] [place] [address] Jona Chau MD Medication Refill 06/24/2021 Refill [facility]P [facility] [address] [address] Luciano Chou MD Medication Refill 06/14/2021 Telephone [facility] [address] [place] [phone] Chu Sr RN ICD Check (remote results) 06/14/2021 Travel 06/14/2021 4:00 PM EST Clinical Support [facility] [address] [place] [address] [place] [phone] Chu Sr RN NSTEMI (non-ST elevated myocardial infarction) (HCC) (Primary Dx); Ventricular fibrillation (HCC); ICD (implantable cardioverter-defibril lator), single, in situ 06/10/2021 Travel 06/10/2021 2:20 PM EST Office Visit [facility] [address] [address] Luciano Chou MD Permanent atrial fibrillation (HCC) (Primary Dx); S/P CABG x 2; Dyslipidemia 05/14/2021 Refill [facility] [address] [place] [address] [address] [place] [address] Radha Cotton MD Medication Refill 05/14/2021 Refill [facility] [place] [address] [place] [address] Anders New MD Medication Refill; Medication Refill 02/24/2021 Travel 02/24/2021 1:30 PM EDT Office Visit [facility] [place] [address] [place] [address] Althea Cole APRN Essential hypertension (Primary Dx); Chronic atrial fibrillation (HCC); Ischemic cardiomyopathy; S/P CABG x 2; Hx of mitral valve replacement 02/08/2021 Orders Only [facility] [address] [place] [address] [address] [place] [address] Radha Cotton MD 02/08/2021 Telephone [facility] [address] [place] [address] [address] [place] [address] Chu Sr, SHA Other (remote alert) 02/05/2021 Travel 02/05/2021 2:00 PM EDT Office Visit [facility] [address] [place] [address] [address] [place] [address] Radha Cotton MD ICD (implantable cardioverter-defibril lator) in place (Primary Dx); Encounter for implantable defibrillator reprogramming or check 01/28/2021 Telephone [facility] [place] [address] [place] [address] Anders New MD Results 01/19/2021 Travel 01/19/2021 1:00 PM EDT - 01/19/2021 11:59 PM EDT Hospital Encounter [facility] [address] [place] [address] Anders New MD Hx of mitral valve replacement; Ischemic cardiomyopathy Discharge Disposition: Home or Self Care 12/11/2020 Refill [facility] [place] [address] [place] [address] Anders New MD Medication Refill 11/27/2020 11:30 AM EDT Office Visit [facility] [place] [address] [facility] [address] [place] [address] Odilia Dumont DPEdd Pain in toes of both feet (Primary Dx); Ingrown left big toenail; Abrasion of lesser toe of left foot, subsequent encounter 11/26/2020 Travel 11/26/2020 2:00 PM EDT Office Visit [facility] [place] [address] [place] [address] Anders New MD Chronic atrial fibrillation (HCC) (Primary Dx); Hx of mitral valve replacement; Ischemic cardiomyopathy 11/09/2020 Telephone [facility] [address] [place] [address] [place] [phone] Evangelina Xiong, RN Other (carelink results) 11/09/2020 9:00 AM EDT Clinical Support [facility] [facility] [address] [place] [address] [place] [phone] Evangelina Xiong, RN Ventricular fibrillation (HCC) (Primary Dx); ICD (implantable cardioverter-defibril lator) in place; Cardiogenic shock (HCC) 11/09/2020 Travel 11/06/2020 Travel 11/06/2020 2:30 PM EDT Office Visit [facility] [place] [address] [facility] [address] [place] [address] Odilia Dumont DPM Abrasion of lesser toe of left foot, initial encounter (Primary Dx); Pain in toes of both feet; Ingrown left big toenail 10/16/2020 Refill [facility] [place] [address] [place] [address] Anders New MD Medication Refill 10/09/2020 Travel 10/09/2020 2:30 PM EDT Office [facility] [address] [facility] [address] [place] [address] Odilia Dumont, DPM Abscess of second toenail of left foot (Primary Dx); Ingrowing toenail with infection; Pain in toes of both feet; Onychauxis; Abscess of second toenail of right foot; Ingrown left big toenail 09/25/2020 Travel 09/25/2020 Abstract [facility] [place] [address] [place] [address] Anders New MD 09/25/2020 11:30 AM EDT Office Visit [facility] [place] [address] [address] Odilia Dumnot, DPM Pain in toes of both feet (Primary Dx); Ingrown left big toenail; Ingrowing toenail with infection; Abscess of second toenail of right foot; Abscess of second toenail of left foot; Onychauxis 09/18/2020 Travel 09/18/2020 3:00 PM EST Office Visit [facility] [place] [address] [address] Odilia Dumont, DPM Pain in toes of both feet (Primary Dx); Ingrown left big toenail; Ingrowing toenail with infection; Abscess of second toenail of right foot; Abscess of second toenail of left foot; Onychauxis 09/11/2020 Travel 09/11/2020 2:00 PM EST Office [facility] [address] [facility] [address] [place] [address] Odilia Dumont, DPM Ingrown left big toenail (Primary Dx); Ingrowing toenail with infection; Pain in toes of both feet; Abscess of second toenail of left foot; Abscess of second toenail of right foot 09/04/2020 Travel 09/04/2020 8:57 AM EST - 09/04/2020 11:59 PM EST Hospital Encounter [facility] [address] [place] [id number] Helder Yung MD PAD (peripheral artery disease); Open wound of left great toe, initial encounter Discharge Disposition: Home or Self Care 09/01/2020 Travel 09/01/2020 1:40 PM EST Office Visit [facility] [place] [address] Helder Yung MD PAD (peripheral artery disease) (Primary Dx); Open wound of left great toe, initial encounter; Ingrown toenail of left foot 08/31/2020 Travel 08/12/2020 Orders Only [facility] [place] [facility] [place] [address] Helder Yung MD Hyperkalemia (Primary Dx) 08/11/2020 Travel 08/11/2020 1:20 PM EST Office Visit [facility] [place] [facility] [place] [address] Helder Yung MD Encounter for Medicare annual wellness exam (Primary Dx); Coronary artery disease involving [place]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; Essential hypertension; Permanent atrial fibrillation (HCC); Screening for thyroid disorder; Encounter for screening for lipid disorder; Screening for metabolic disorder; Screening for iron deficiency anemia 08/10/2020 Telephone [facility] [address] [facility] [address] [place] [address] Evangelina Xiong RN Other (carelink results) 08/10/2020 Travel 08/08/2020 9:00 AM EST Clinical Support [facility] [address] [facility] [address] [place] [address] Evangelina Xiong RN Ventricular fibrillation (HCC) (Primary Dx); ICD (implantable cardioverter-defibril lator) in place 07/30/2020 Telephone [facility] [place] [address] [place] [address] Anders New MD Other 07/23/2020 Orders Only [place] [address] [place] [address] Temi Isabel APRN Need for vaccination (Primary Dx) 07/23/2020 1:20 PM EST Clinical Support [place] [address] [place] [address] Theodora Elizalde Essential hypertension; Ischemic cardiomyopathy 07/20/2020 Travel 07/20/2020 Telephone [place] [address] [place] [address] Temi Isabel APRN Appointment Needed (Lab & Shingles Vaccine) 06/26/2020 Refill [facility] [address] [place] [address] Anders New MD Medication Refill 05/28/2020 Travel 05/28/2020 2:20 PM EST Office Visit [facility] [address] [place] [address] Anders New MD Chronic atrial fibrillation (HCC) (Primary Dx); Essential hypertension; Ischemic cardiomyopathy 05/11/2020 Orders Only [facility] [address] [place] [address] Anders New MD PAF (paroxysmal atrial fibrillation) (HCC) (Primary Dx) 05/08/2020 Telephone [facility] [address] [place] [address] [place] [phone] Evangelina Xiong RN Other (carelink results) 05/08/2020 9:00 AM EDT Clinical Support [facility] [address] [place] [address] [address] [place] [address] Evangelina Xiong RN Ventricular fibrillation (HCC) (Primary Dx); ICD (implantable cardioverter-defibril lator) in place; Cardiogenic shock (HCC) 05/08/2020 Travel 04/22/2020 Travel 04/22/2020 1:20 PM EDT Clinical Support [facility] [address] [place] [address] Theodora Elizalde Essential hypertension; Chronic atrial fibrillation (HCC); Hx of mitral valve replacement 04/20/2020 Travel 04/20/2020 Telephone [facility] [address] [place] [address] Temi Isabel APRN Appointment Needed (lab) 03/09/2020 Refill [facility] [address] [place] [address] Anders New MD Medication Refill 02/07/2020 Travel 02/07/2020 1:00 PM EDT Office Visit [facility] [address] [place] [address] [address] [place] [address] Radha Cotton MD ICD (implantable cardioverter-defibril lator) in place (Primary Dx); Encounter for implantable defibrillator reprogramming or check 01/30/2020 Travel 01/30/2020 11:00 AM EDT Office Visit [facility] [address] [place] [address] Anders New MD Chronic atrial fibrillation (HCC) (Primary Dx); Hx of mitral valve replacement; Essential hypertension; S/P CABG x 2 01/07/2020 Telephone [facility] [address] [place] [address] Temi Isabel APRN Medicare Annual Wellness 01/01/2020 Patient Outreach [facility] Quality Transformation [address] [place] [address] Reena Benson RN Care Management - Chart Review 12/12/2019 Travel 12/12/2019 Telephone [facility] [address] [place] [address] Anders New MD Appointment Needed 12/05/2019 Travel 12/05/2019 9:40 AM EDT Office Visit [facility] Card[facility]geons [place] [address] [place] [address] [address] [place] [address] Helder Ariza MD S/P CABG x 2 (Primary Dx); Hx of mitral valve replacement 12/03/2019 Telephone [facility] [address] [place] [address] [address] [place] [address] Evangelina Xiong, RN Other (carelink results 6 wk check post op) 12/03/2019 2:30 PM EDT Clinical Support [facility] [address] [place] [address] [address] [place] [address] Evangelina Xiong, RN Ventricular fibrillation (HCC) (Primary Dx); Cardiogenic shock (HCC) 12/03/2019 Travel 11/29/2019 Telephone [facility] [place] [facility] [address] [place] [address] [address] [place] [address] Alethea Garcia, Clerical Staff Cardiac Rehab (Referral) 11/29/2019 Travel 11/29/2019 10:00 AM EDT - 11/29/2019 11:59 PM EDT Hospital Encounter [facility] [place] [address] Helder Ariza MD SOB (shortness of breath) Discharge Disposition: Home or Self Care 11/27/2019 Travel 11/23/2019 Refill [facility] [place] [address] [place] [address] Aga Stanley APRN Medication Refill 11/14/2019 Travel 11/14/2019 Orders Only [facility] Cardiac Surgeons [address] [place] [address] Helder Ariza MD SOB (shortness of breath) (Primary Dx) 11/14/2019 10:40 AM EDT Office Visit [facility] Cardiac Surgeons [address] [place] [address] Helder Ariza MD S/P CABG x 2 (Primary Dx); Hx of mitral valve replacement 11/13/2019 Patient Outreach [facility] [address] [place] [address] Reena Benson RN Cm- Transitional Care Continued 11/13/2019 Telephone [facility] [address] [place] [address] Helder Ariza MD Other (pre registeration ) 11/08/2019 Travel 11/07/2019 Travel 11/07/2019 8:40 AM EDT Telemedicine [facility] [address] [place] [address] Helder Ariza MD Hx of mitral valve replacement; S/P CABG x 2 11/06/2019 Lab Requisition [facility] [place], [place] [id number] Dejon Yung MD Atherosclerotic heart disease of [place] coronary artery with unspecified angina pectoris 11/05/2019 Telephone [facility] [place] [facility] [address] [place] [address] [address] [place] [address] Alethea Garcia, Clerical Staff Cardiac Rehab (Referral) 11/05/2019 Orders Only [facility] [place] [facility] [address] [place] [address] [address] [place], [place] [id number] Alethea Garcia, Clerical Staff S/P CABG (coronary artery bypass graft) (Primary Dx) 11/01/2019 Telephone [facility] [address] [place] [address] Temi Isabel APRN Orders 10/31/2019 Telephone [facility] [address] [place] [address] [address] [place] [address] Chu Sr RN Other (post op incision check) 10/31/2019 Travel 10/31/2019 Patient Outreach [facility] [address] [place] [address] Reena Benson, RN Hospital Follow Up; Cm- Transitional Care Initiation; CM- Telephonic Outreach; CM-Medication Assistance; CM-Resource Coordination 10/30/2019 Orders Only [facility] Sur[facility] [address] [place] [address] Helder Ariza MD S/P CABG (coronary artery bypass graft) (Primary Dx) 10/15/2019 2:55 PM EDT - 10/30/2019 12:50 PM EDT Hospital Encounter [facility] 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 [address] Anders New MD Kmety, Jamie, MD Locher, James P, MD Chest pain; Chest pain, unspecified type; ST elevation myocardial infarction (STEMI), unspecified artery (HCC); Coronary artery disease involving [place] heart with angina pectoris, unspecified vessel or lesion type; Cardiac arrhythmia; Cardiac arrhythmia, unspecified cardiac arrhythmia type Discharge Disposition: Home or Self Care 10/27/2019 Orders Only [facility] [address] [facility] [address] [place] [address] Radha Cotton MD 10/22/2019 Travel 10/22/2019 Orders Only [facility] [address] [facility] [address] [place] [address] Radha Cotton MD 10/21/2019 Travel 10/21/2019 11:54 AM EDT Anesthesia Event [facility] PREPARATORY TECHNICIAN [facility] [place] [address] Garfield [place] MD Powell, Jeanne, APRN 10/21/2019 11:45 AM EDT - 10/21/2019 1:15 PM EDT Surgery [facility] PREPARATORY TECHNICIAN [facility] [place] [address] Radha Cotton MD INTERNAL CARDIOVERTER DEFIBRILLATOR (ICD) IMPLANT 10/17/2019 10:31 AM EDT [facility] [place] [address] Nandini Amador MD Zimmermann, Anthony G, MD 10/17/2019 11:15 AM EDT - 10/17/2019 6:05 PM EDT Surgery [facility] [place] [address] Helder Ariza MD CORONARY ARTERY BYPASS GRAFT 10/17/2019 7:46 AM EDT - 10/17/2019 8:46 AM EDT Surgery [facility] PREPARATORY TECHNICIAN [facility] [place] [address] Anders New MD EMERGENT CORONARY ANGIOGRAM 10/15/2019 Travel 10/15/2019 3:00 PM EDT - 10/15/2019 4:00 PM EDT Surgery [facility] PREPARATORY TECHNICIAN [facility] [place] [address] Anders New MD LEFT HEART CATHETERIZATION 10/12/2019 2:19 PM EDT - 10/15/2019 2:24 PM EDT Hospital Encounter [facility] [address] [address] [place] [address] Louis Cassidy MD Renard, Cruff, MD Right-sided chest pain (Primary Dx); Elevated troponin; Shortness of breath; Suspected COVID-19 virus infection; Atrial fibrillation, unspecified type (HCC) Discharge Disposition: Discharge/Readmit 10/14/2019 Travel 10/12/2019 Travel 10/12/2019 Telephone [facility] [place] [address] [facility] [address] [place] [address] Vee Cervantes APRN Shortness of Breath 09/09/2019 Travel 09/09/2019 9:20 AM EST Office Visit [facility] [address] [place] [address] Anders New MD Chronic atrial fibrillation (HCC) (Primary Dx); Essential hypertension 08/12/2019 Refill [facility] [address] [place] [address] Anders New MD Medication Refill 07/19/2019 Telephone [facility] [place] [address] [place] [address] Anders New MD Reschedule 04/09/2019 1:20 PM EDT Office Visit [facility] [address] [place] [address] Temi Isabel APRN Annual physical exam [...] Transformation [address] [place] [address] Dior Ceron RN Results (Cologuard Results. ) 03/28/2019 Patient Outreach [facility] [address] [place], [place] [id number] Temi Isabel APRN Medicare Annual Wellness (Annual Wellness Questionnaire) 02/20/2019 Telephone [facility] [address] [place] [address] Temi Isabel APRN Visit Follow Up 02/11/2019 Telephone [facility] [address] [place] [address] Anders New MD Appointment Needed 02/06/2019 Refill [facility] [address] [place] [address] Aga Stanley APRN Medication Refill 11/08/2018 Orders Only [facility] Quality Transformation [address] [place], [place] [address] Temi Isabel APRN Screening for colon cancer; Screening for cancer of the rectum 05/21/2018 8:00 AM EST Clinical Support [facility] [place] [facility] [place] [address] Theodora Elizalde Hyperglycemia (Primary Dx); Annual physical exam; Screening for prostate cancer; Screening for deficiency anemia; Screening for diabetes mellitus; Screening for thyroid disorder; Low testosterone 05/08/2018 2:20 PM EDT Clinical Support [facility] [place] [address] [place] [address] Theodora Elizalde Low testosterone (Primary Dx) 05/07/2018 Refill [facility] [place] [address] [place] [address] Temi Isabel APRN Medication Refill 04/06/2018 1:20 PM EDT Clinical Support [address] [place] [address] Theodora Elizalde Low testosterone 04/02/[address] [place] [address] Temi Isabel APRN Medication Refill 03/08/2018 1:20 PM EDT Clinical Support [address] [place] [address] Theodora Elizalde Low testosterone (Primary Dx) 02/27/2018 10:00 AM EDT Office Visit [address] [place] [address] Temi Isabel, MARCELO Annual physical exam (Primary Dx); Ulnar neuropathy at elbow, right; Essential hypertension; DDD (degenerative disc disease), cervical; Paroxysmal atrial fibrillation (HCC); Screening for colon cancer; Screening for thyroid disorder; Screening for diabetes mellitus; Screening for hyperlipidemia; Chronic bilateral low back pain without sciatica; Screening for deficiency anemia; Screening for prostate cancer; Low testosterone 02/07/2018 9:30 AM EDT Office Visit [facility] [place] [address] [place] [address] Aga Stanley APRN Essential hypertension (Primary Dx); Chronic atrial fibrillation (HCC); Class 1 obesity due to excess calories without serious comorbidity with body mass index (BMI) of 33.0 to 33.9 in adult 02/05/2018 1:20 PM EDT Clinical Support [facility] [address] [place] [address] Theodora Elizalde Low testosterone (Primary Dx) 02/02/[address] [place] [address] Temi Isabel APRN Medication Management 02/02/[address] [place] [address] Temi Isabel APRN Medication Refill 01/22/2018 Telephone [facility] [address] [place] [address] Anders New MD Appointment Needed 01/18/2018 Refill [facility] [address] [place] [address] Anders New MD Medication Refill 01/18/2018 Refill [facility] [address] [place] [address] Anders New MD Medication Refill 01/05/2018 1:40 PM EDT Clinical Support [address] [place] [address] Theodora Elizalde Low testosterone (Primary Dx) 01/02/[address] [place] [address] Temi Isable APRN Medication Management 12/19/2017 Refill [facility] [address] [place] [address] Anders New MD Medication Refill 2017 2:40 PM EDT Clinical Support [address] [place] [address] Theodora Elizalde Low testosterone (Primary Dx) 11/28/2017 11:00 AM EDT Office Visit [address] [place] [address] Temi Isabel APRN Low testosterone (Primary Dx); Chronic atrial fibrillation (HCC); DDD (degenerative disc disease), lumbar; DDD (degenerative disc disease), cervical; Essential hypertension 11/20/2017 Patient Outreach [address] [place] [address] Lela Torres RN ED Follow-Up Call; Care Transition; Care Management - Chart Review 11/17/2017 8:28 PM EDT - 11/17/2017 11:05 PM EDT Emergency [facility] [address] [place] [address] Radha Fitzpatrick MD Laceration of left lower extremity, initial encounter (Primary Dx) Discharge Disposition: Home or Self Care 09/25/2017 2:15 PM EDT - 09/25/2017 11:59 PM EDT Hospital Encounter [facility] MRI [address] [place], [place] [address] Phu Schroeder MD Lumbago-sciatica due to displacement of lumbar intervertebral disc Discharge Disposition: Home or Self Care 08/02/2017 8:30 AM EST Clinical Support [facility] [place] [address] Trinity Irwin CCMA Male hypogonadism (Primary Dx) 06/23/2017 Refill [facility] [place] [address] [place] [address] Anders New MD Medication Refill 06/22/2017 Telephone [facility] [place] [address] [place] [address] Anders New MD Cardiology Clearance 06/22/2017 Telephone [facility] [place] [facility] [place] [address] Temi Isabel APRN Other 06/21/2017 Orders Only [facility] [place] [facility] [place] [address] Temi Isabel, MARCELO Chronic atrial fibrillation (HCC) (Primary Dx) 06/21/2017 11:00 AM EST - 06/21/2017 11:59 PM EST Hospital Encounter [facility] [address] [place] [phone] Chronic atrial fibrillation (HCC); Mitral valve disease; Pre-op examination Discharge Disposition: Home or Self Care 06/21/2017 8:00 AM EST Office Visit [facility] [place] [address] Temi Isabel APRN Pre-op examination (Primary Dx); Essential hypertension; Chronic atrial fibrillation (HCC); Mitral valve disease; Ulnar neuropathy at elbow, right 05/11/2017 2:30 PM EDT Office Visit [address] [phone] Shannan Guevara APRN Wrist sprain, left, initial encounter (Primary Dx); Injury of left hand, initial encounter; Fall, initial encounter 04/25/2017 11:13 AM EDT - 04/25/2017 11:59 PM EDT Hospital Encounter [facility] [place] [address] Essential hypertension; Screening for deficiency anemia Discharge Disposition: Home or Self Care 04/25/2017 10:15 AM EDT - 04/25/2017 11:12 AM EDT Hospital Encounter [facility] [place] [address] Itz Mai MD Cervical stenosis of spine; Hardware failure of anterior column of spine Discharge Disposition: Home or Self Care 04/25/2017 8:44 AM EDT - 04/25/2017 10:14 AM EDT Hospital Encounter [facility] EMG [address] [facility] [address] [place] [address] Emg, Dale Edg Ulnar neuropathy of both upper extremities (Primary Dx); Carpal tunnel syndrome of left wrist; Cervical radiculopathy Discharge Disposition: Home or Self Care 04/24/2017 Telephone [facility] [place] [address] [place] [address] Anders New MD Medication Refill 03/24/2017 Refill [facility] [place] [address] [place] [address] Anders New MD Medication Refill 02/27/2017 1:00 PM EDT Office Visit [facility] [place] [address] [place] [address] Isabel, Temi, ABLE BODIED TANKERMAN Well adult exam (Primary Dx); DDD (degenerative disc disease), cervical; DDD (degenerative disc disease), lumbar; Mitral valve disease; Essential hypertension; Paroxysmal atrial fibrillation (HCC); Screening for hyperlipidemia; Screening for deficiency anemia; Encounter for screening for nutritional disorder; Screening for colon cancer 01/23/2017 Refill [facility] [address] [place] [address] Anders New MD Medication Refill 01/16/2017 11:21 AM EDT - 01/16/2017 11:59 [place] [address] Anders New MD Chronic atrial fibrillation (HCC); Mitral valve disease Discharge Disposition: Home or Self Care 11/30/2016 1:30 PM EDT Office Visit [facility] [address] [place] [address] Anders New MD Chronic atrial fibrillation (HCC) (Primary Dx); Essential hypertension; Mitral valve disease 11/28/2016 Refill [facility] [address] [place] [address] Anders New MD Medication Refill 08/25/2016 Refill [facility] H&V [address] [address] Anders New MD Medication Refill 01/25/2016 Refill [facility] H&[facility] [address] [address] Anders New MD Medication Refill 12/18/2015 Telephone [facility] H&V [address] [address] Anders New MD Cardiology Clearance (Left Total Knee Replacement) 11/12/2015 2:20 PM EDT Office Visit [facility] [address] [place] [address] Anders New MD Chronic atrial fibrillation (HCC) (Primary Dx); Essential hypertension 11/03/2015 Telephone [facility] [place] [address] [place] [address] Anders New MD Note 10/28/2015 Refill [facility] [place] [address] [place] [place] [address] Anders New MD Medication Refill 06/19/2015 Refill [facility] [place] [address] [place] [address] Anders New MD Medication Refill 06/15/2015 2:00 PM EST Office Visit [facility] [address] [place] [address] Halley Mitchell APRN Chronic atrial fibrillation (HCC) (Primary Dx); Essential hypertension 06/10/2015 Telephone [facility] [place] [address] [place] [address] Anders New MD Other 05/19/2015 Refill [facility] [address] [place] [address] Anders New MD Medication Refill 12/29/2014 Telephone [facility] [address] [address] Anders New MD Visit Follow Up 12/22/2014 1:30 PM EDT Office Visit [facility] [address] [address] Anders New MD Chronic atrial fibrillation (HCC) (Primary Dx); Essential hypertension; Mitral valve disease 12/11/2014 Refill [facility] [address] [place] [address] Anders New MD Medication Refill 11/14/2014 Refill [facility] [address] [address] Anders New MD Medication Refill 11/14/2014 Refill [facility] [place] [facility] [place] [address] Anders New MD Medication Refill 07/08/2014 Refill [facility] [place] [address] [place] [address] Anders New MD Medication Refill 06/18/2014 Telephone [facility] [place] [facility] [address] [place] [facility] [place] [address] Anders New MD Appointment Needed 06/04/2014 Refill [facility] [place] [address] [address] Anders New MD Medication Refill 05/30/2014 Telephone [facility] [place] [address] [address] Anders New MD Cardiology Clearance 04/15/2014 Refill [facility] [place] [address] [address] Anders New MD Medication Refill 02/26/2014 Telephone [facility] [place] [address] [address] Anders New MD Cardiology Clearance 02/26/2014 2:15 PM EDT - 02/26/2014 3:30 PM EDT Surgery [place] [address] Ronaldo Briceno MD CARPAL TUNNEL RELEASE ENDOSCOPIC 02/26/2014 12:32 PM EDT - 02/26/2014 4:13 PM EDT Hospital Encounter FTT SAME DAY SURGERY [address] [place] [address] Ronaldo Briceno MD Discharge Disposition: Home or Self Care 02/25/2014 10:30 AM EDT - 02/25/2014 11:59 PM EDT Hospital Encounter FTT PRE-ADMIT [place] [address] Pat, Ftt Preoperative examination, unspecified (Primary Dx); Cubital tunnel syndrome on right Discharge Disposition: Home or Self Care 02/03/2014 12:57 PM EDT - 02/03/2014 11:59 PM EDT Hospital Encounter [facility] [address], [place] [address] Alvarez Jaimes MD Shoulder pain Discharge Disposition: Home or Self Care 01/27/2014 Refill [facility] [place] [address] [place] [address] Anders New MD Medication Refill 01/13/2014 3:19 PM EDT - 01/13/2014 11:59 PM EDT Hospital Encounter [facility] [address] [place] [address] Alvarez Jaimes MD Brachial neuritis or radiculitis NOS Discharge Disposition: Home or Self Care 12/10/2013 2:41 PM EDT - 12/10/2013 11:59 PM EDT Hospital Encounter [facility] [address] [place] [address] Anders New MD Atrial fibrillation (HCC) Discharge Disposition: Home or Self Care 11/21/2013 4:00 PM EDT Office Visit [facility] [place] [facility] [address] [place] [address] Anders New MD Atrial fibrillation (HCC) (Primary Dx); HTN (hypertension); Mitral valve disease 11/15/2013 Refill [facility] [place] [facility] [address] [place] [address] Anders New MD Medication Refill 09/16/2013 Refill [facility] [place] [facility] [address] [place] [address] Anders New MD Medication Refill 05/14/2013 Refill [facility] [place] [address] [place] [address] Anders New MD Medication Refill 04/22/2013 [place] [address] Anders New MD Appointment Needed 04/11/[address] [address] Anders New MD Medication Refill 08/30/[address] [phone] Anders New MD Medication Refill 08/17/[place] [address] Anders New MD Medication Refill 07/04/2012 12:03 PM EST - 07/04/2012 11:59 PM [place] [address] Anders New MD A-fib (HCC); HTN (hypertension) Discharge Disposition: Home or Self Care 07/04/2012 1:00 [place] [address] Anders New MD Atrial fibrillation (HCC) (Primary Dx); HTN (hypertension); Mitral valve disease 06/28/2012 [place] [address] Anders New MD 05/21/2012 Orders Only [address] [address] Anders New MD A-fib (HCC); HTN (hypertension) 04/16/2012 Orders Only [address] [phone] Estrella Fernandes, RMA A-fib (HCC); HTN (hypertension) 04/16/2012 Telephone [facility]P [facility] [address] [place] [address] Anders New MD Medication Refill 09/02/2011 12:00 PM EST - 09/02/2011 12:42 PM EST Surgery [facility] [address] [place] [address] Yuli Fermin MD KNEE ARTHROSCOPY MENISCECTOMY/REPAIR (ALSO COVERS ARTHROSCOPIC INCISION AND DRAINAGE/DEBRIDEMENT) 09/02/2011 10:59 AM EST - 09/02/2011 4:07 PM EST Hospital Encounter [facility] [address] [place] [address] Yuli Fermin MD Discharge Disposition: Home or Self Care 08/31/2011 3:30 PM EST - 08/31/2011 11:59 PM EST Hospital Encounter [facility] LABORATORY [address] [place] [address] Pre-operative cardiovascular examination, high risk surgery Discharge Disposition: Home or Self Care 08/31/2011 3:15 PM EST - 08/31/2011 3:29 PM EST Hospital Encounter [facility]TT EKG [address] [place] [address] IUD check up Discharge Disposition: Home or Self Care 08/15/2011 Refill [facility]P [facility] [address] [place] [address] Anders New MD Medication Refill 08/10/2011 4:35 PM EST - 08/10/2011 11:59 PM EST Hospital Encounter ED[facility] LAB BALA PROCESSING [facility] [place] [address] Joint pain Discharge Disposition: Home or Self Care 04/18/2011 3:00 PM EDT - 04/18/2011 11:59 PM EDT Hospital Encounter [facility] [address] [place] [address] Yuli Vogel MD Lumbago Discharge Disposition: Home or Self Care 11/06/2010 11:04 PM EDT - 11/10/2010 4:30 PM EDT Hospital Encounter [facility]D [facility] [address] Veronique Rehman MD Larkin, John J, MD Closed fracture of olecranon process of ulna; Closed fracture of multiple ribs, unspecified; Open wound of elbow, complicated Discharge Disposition: Home Health Care Svc 11/07/2010 1:00 PM EDT - 11/07/2010 3:00 PM EDT Surgery [facility] PERIOP [facility] [place] [address] Yuli Fermin MD ELBOW ARTHROTOMY 07/19/2010 1:02 PM EST - 07/19/2010 11:59 PM EST Hospital Encounter [facility] VASCULAR LAB [facility] [place] [address] Sushil Reid Leg pain Discharge Disposition: Home or Self Care 05/05/2010 3:30 PM EDT - 05/05/2010 11:59 PM EDT Hospital Encounter [facility] D-WING XRAY [facility] [address] Fall Discharge Disposition: Home or Self Care 10/27/2009 Orders Only [facility] [place] [facility] [address] [place] [address] Scottie Elkins MD 10/19/2009 3:12 PM EDT - 10/19/2009 3:58 PM EDT Emergency HST EPIC CON UNK COV Physicians, [facility] Emergency Josep Krueger MD 05/22/2009 12:01 AM EST - 05/22/2009 11:59 PM EST Hospital Encounter HST EPIC CON UNK EDG Alvarez Jamies MD 01/19/2009 11:21 AM EDT - 01/19/2009 11:59 PM EDT Hospital Encounter HST IMAGING DREW EDG Alvarez Jaimes MD 11/06/2008 Orders Only [facility] [place] [facility] [address] [place] [address] Arnulfo Sequeira MD 12/23/2007 12:46 [...] Hospital Encounter HST TCU Spring Varma MD [facility], 01/10/1999 6:37 PM EDT - 01/10/1999 7:48 [...] Dr. Cotton Coronary artery disease invo lving [place]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 10/16/2019 Overview (10/16/2019): [...] (10/15/2019): Added automatically from request for surgery [id number] Acute febrile illness 10/13/20192023 Immunizations Immunization Administration Dates Next Due Influenza Virus Vaccine Quadrivalant, Flublok Zoster Recombinant 09/24/2020 04/21/2022 Family History Medical History Relation Name Comments Alcohol Abuse Sister 1 Anesth Problems Neg Hx Relation Name Status Comments Brother Alive Father Mother Sister 1 Sister 2 Alive Social History Smoking Status as of 01/29/2025 Tobacco Use Types Packs/Day Years Used Date Smoking Tobacco: Never Assessed [facility] Utilities Answer Date Recorded In the past [...] Recorded PHQ-2 Total Score 0 10/01/2023 [facility] - Occupational Stress [...] 10/31/2019 Lack of Transportation (Non-Medical) No 10/31/2019 [facility] IP Transportation Answer D ate Recorded [...] 1:45 PM EST Office [place] [address] Jona Chau MD [address] [place] [address] 11/07/2025 1:30 PM EDT Office Visit [facility] [address] [place] [address] 11/07/2025 2:00 PM EDT Office Visit [facility] [address] [place] [phone] Funmi Aldrihc APRN [address] [place] [address] Medical Devices Implanted Type Area Electronic Scale Subassembler Device Identifier Shelf Expiration Date Model / Serial / Lot Visia Af Mri Vr Surescan - [id number] Implanted:Qty: 1 on 10/21/2019 by Radha Cotton MD at [facility] ICD MEDTRONIC:SHAWNA DRAKE [id number] / [id number] / Lead Pcng 62cm Rv Trplr Scr In Xtd-Retrac Hlx Eltrd Shahida Insl - [id number] Implanted:Qty: 1 on 10/21/2019 by Radha Cotton MD at [facility] Lead [employer]:SHAWNA Joseph SYS [id number] / [id number] / Valve Bioprosthesis Pericardial W/Termafix Process Mitral Perimount 29mm - [id number] Implanted:Qty: 1 on 10/17/2019 by Helder Ariza MD at [facility] N/A: Heart POLLACK LIFESCI 05/11/2023 [id number] / / [id number] Cup Actb Trident Ii Sz-F 56mm Clstr Scr 5hl Tritan Hap Prim - [id number] Implanted:Qty: 1 on 12/27/2023 by René Brown MD at [facility] Right: Hip CHELLY:ORTHOPE DICS [id number] 06/19/2028 702-04-56 F / / [id number] Insert O Degree Trident X 3 36mm Code F - [id number] Implanted:Qty: 1 on 12/27/2023 by René Brown MD at [facility] Right: Hip CHELLY:ORTHOPE DICS [id number] 07/13/2028 723-00-36 F / / [id number] Screw 6.5x25mm Trident Erick Ss Hex Thrd St Lpro Actb Hip - [id number] Implanted:Qty: 1 on 12/27/2023 by René Brown MD at [facility] Right: Hip CHELLY:ORTHOPE DICS [id number] 10/08/2028 4159-4014 / / [id number] Screw 6.5x25mm Trident Erick Ss Hex Thrd St Lpro Actb Hip - [id number] Implanted:Qty: 1 on 12/27/2023 by René Brown MD at [facility] Right: Hip CHELLY:ORTHOPE DICS [id number] 10/08/2028 6331-7495 / / [id number] Stem Sz7 50mm Ofst Accolade Ii Prim Recon Ti Plasm [place] Ctd - [id number] Implanted:Qty: 1 on 12/27/2023 by René Brown MD at [facility] Right: Hip CHELLY:ORTHOPE DICS [id number] 07/31/2027 0290-0635 / / [id number] Head Fem V-40 36mm +2.5mm Nk Biolox Delta Cerm Tapr Prim Mod - [id number] Implanted:Qty: 1 on 12/27/2023 by René Brown MD at [facility] Right: Hip CHELLY:ORTHOPE DICS [id number] 07/15/2028 6570-0-53 6 / / [id number] Procedures Procedure Name Priority Date/Time Associated Diagnosis Comments GA REM INTERROG ICPMS <30 D PHYS/QHP Routine 01/10/2025 12:00 AM EDT Vector Remote Device GA INTERROGATION EVAL REMOTE </90 D 1/2/IS/IT PROJECT MANAGER LD DFB Routine 01/09/2025 12:00 AM EDT Vector Remote Device GA REM INTERROG ICPMS <30 D PHYS/QHP Routine 12/10/2024 12:00 AM EDT Vector Remote Device EC ECHOCARDIOGRAM COMPLETE W DOPPLER AND COLOR FLOW MAPPING Routine 12/03/2024 2:12 PM EDT VT (ventricular tachycardia) ([facility]) Healthcare maintenance Shortness of breath NM BONE [...] Device GA INTERROGATION EVAL REMOTE </90 D 1/2/IS/IT PROJECT MANAGER LD DFB Routine 10/06/2024 12:00 AM [...] Device GA INTERROGATION EVAL REMOTE </90 D 1/2/IS/IT PROJECT MANAGER LD DFB Routine 07/04/2024 12:00 AM [...] heart failure (HCC) Coronary artery disease involving [place]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 Primary hypertension Mitral [...] right GA INTERROGATION EVAL REMOTE </90 D 1/2/IS/IT PROJECT MANAGER LD DFB Routine 03/26/2024 12:00 AM [...] heart failure (HCC) Coronary artery disease involving [place]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 Primary hypertension Mitral valve disease Hx of mitral valve replacement PAD (peripheral artery disease) S/P CABG x 2 single chamber ICD TSH REFLEX TO FT4 Routine 02/09/2024 4:23 PM EDT Paroxysmal atrial fibrillation (HCC) Chronic systolic heart failure (HCC) Coronary artery disease involving [place]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 Primary hypertension Mitral [...] Device GA INTERROGATION EVAL REMOTE </90 D 1/2/IS/IT PROJECT MANAGER LD DFB Routine 12/26/2023 12:00 AM [...] 12:47 PM EDT Chest pain, unspecified type PREPARATORY TECHNICIAN HEMODYNAMIC WAVEFORMS Routine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 indication: abnormal nuke Procedural consent: Risks and benefits reviewed directly with patient prior to the procedure Procedural details: Patient was prepped and draped in normal sterile fashion the right radial site was anesthetized using lidocaine. The right radial artery was accessed using Seldinger technique and a 6 Montenegrin glide sheath was advanced into the radial [...] Edited Result - Final [facility] * PREPARATORY TECHNICIAN HEMODYNAMIC WAVEFORMS (10/03/2023 12:09 PM EDT) Only the most recent of3 resultswithin the time period is included. 10/03/2023 12:0 9 PM EDT us Vinnie Crowell MD CARDIAC CATH ORDERABLES E dited Result - Final Performing Organization Address City/[facility]/ZIP Co de Phone Number [facility] [address] [place] [address] * ECG AND WAVEFORMS - TELEMETRY (10/03/2023 7:05 AM EDT) Only the most recent of36 resultswithin the time period is included. ECG INTERPRET Ventricular Paced [facility] 10/03/2023 7:05 AM EDT Narrative [facility] - 10/03/2023 8:15 AM EDT /AB/HICUITY/ROUTINE QRS 0.20 QT 0.48 See Clinical Report link for waveform capture us Unknown Provider POINT OF CARE CARDIOLOGY Final Result Performing Organization Address [facility] Co de Phone Number [facility] [address] [place] [address] * NM MYOCARDIAL PERFUSION SPECT STRESS AND [...] risk for cardiac events. us Amy Martinez ABLE BODIED TANKERMAN IMG NM CARDIAC ORDERABLES Coco l Result * ST STRESS TEST [facility] (10/02/2023 10:51 AM EDT) Anatomical Region Laterality Modality Cardiac Stress T esting 10/02/2023 10:2 6 AM EDT Impressions 10/02/2023 3:[address] [facility] Test Date: 2023-10-02 Pat Name: ODILIA CERON Department: DEPID Room: 44 Gender: Male Student Affairs Vice President: JENNY DALTON : 1955 Requested By: AMY MARTINEZ Order Number: [id number] Reading MD: Colton Varner Interpretive Statements Stress [...] CORRECTED BLOOD PRESSURES, WORKSHEET IS SCANNED IN [email or web address] UNDER THE CARDIOLOGY TAB AND MEDIA TAB [...] CERON Department: DEPID Room: 4430 Gender: Male Student Affairs Vice President: JENNY DALTON : 1955 Requested By: AMY MARTINEZ Order Number: [id number] Reading MD: Colton Varner Interpretive Statements Stress [...] EDT by Colton Varner us Amy Martinez ABLE BODIED TANKERMAN IMG STRESS ORDERABLES Final Re sult * [...] the mild claudication range. Evangelina Mcclure APRN [facility] VASCULAR ORDERABLES Fi nal Result * (ABNORMAL) CBC (10/01/2023 7:26 AM EDT) Only the most recent of12 resultswithin the time period is included. WBC 8.9 3.7 - 10.3 x10(3)/mcL 10/01/2023 7:51 AM EDT [facility] RBC 4.56(L) 4.60 - 6.10 x10(6)/mcL 10/01/2023 7:51 AM EDT [facility] Hgb 14.6 13.7 - 17.5 g/dL 10/01/2023 [...] 10/01/2023 7:51 AM EDT [facility] MPV 10.0 8.8 - 12.5 fL 10/01/2023 7:51 AM EDT [facility] Blood VENOUS BLOOD / Unknown Venipuncture / Unknown 10/01/2023 7:26 AM EDT 10/01/2023 7:42 AM EDT us Mayank Romero MD HEMATOLOGY ORDERABLES Final R esult [facility] [address] , [place] [address] * MAGNESIUM LEVEL (10/01/2023 7:26 AM EDT) Only the most recent of4 resultswithin the time period is included. Magnesium 2.2 1.6 - 2.4 mg/dL 10/01/2023 8:17 AM EDT [facility] Blood VENOUS BLOOD / Unknown Venipuncture / Unknown 10/01/2023 7:26 AM EDT 10/01/2023 7:42 AM EDT us Mayank Romero MD CHEMISTRY ORDERABLES Final Re sult [facility] [address], [place] [address] * TROPONIN-T HIGH SENSITIVITY 2HR (09/30/2023 5:08 PM EDT) Only the most recent of2 resultswithin the time period is included. qc-jQyqwmjcg-Q 2HR 12 <22 ng/L 09/30/2023 5:28 PM EDT [facility] Comment:See the website [employer] for rule out NM care pathway, conditions other than AMI that can cause elevated hs cTnT, and comparison of values from the 4th and 5th generation David tests. https://[employer].org/topic/clinical-answers/[email or web address]/cpm-[email or web address] 81507 hs-cTnT 2Hr Delta from Baseline 0 <4 ng/L 09/30/2023 5:28 PM EDT [facility] Blood VENOUS BLOOD / Unknown Venipuncture / Unknown 09/30/2023 5:08 PM EDT 09/30/2023 5:10 PM EDT Narrative [facility] - 09/30/2023 5:28 PM EDT Ingestion of daljit doses of biotin (>5 mg/day) taken within 8 hours of drawing blood sample can interfere with this immunoassay test. Andrae Tejada APRN CHEMISTRY ORDERABLES Final Result [facility] [address] [place] [address] * TROPONIN-T HIGH SENSITIVITY BASELINE W/ REFLEX (09/30/2023 3:28 PM EDT) Only the most recent of5 resultswithin the time period is included. iu-gTcvjfyci-M 12 <22 ng/L 09/30/2023 3:48 PM EDT [facility] Comment:See the website [employer] for rule out NM care pathway, conditions other than AMI that can cause elevated hs cTnT, and comparison of values from the 4th and 5th generation David tests. https://[employer].[email or web address]/topic/clinical-answers/gnt-46997897/cpm-203 29073 Blood VENOUS BLOOD / Unknown Venipuncture / Unknown 09/30/2023 3:28 PM EDT 09/30/2023 3:30 PM EDT Narrative [facility] - 09/30/2023 3:48 PM EDT Ingestion of daljit doses of biotin (>5 mg/day) taken within 8 hours of drawing blood sample can interfere with this immunoassay test. [employer] ABLE BODIED TANKERMAN CHEMISTRY ORDERABLES Final Result Performing Organization Address City/[facility]/ZIP Co de Phone Number [facility] [address] [place] [address] * POTASSIUM REPEAT (09/30/2023 3:28 PM EDT) Potassium 4.9 3.5 - 5.0 mmol/L 09/30/2023 3:43 PM EDT [facility] Blood VENOUS BLOOD / Unknown Venipuncture / Unknown 09/30/2023 3:28 PM EDT 09/30/2023 3:30 PM EDT [employer] ABLE BODIED TANKERMAN CHEMISTRY ORDERABLES Final Result Performing Organization Address City/[facility]/ZIP Co de Phone Number [facility] [address] [place] [address] * XR CHEST AP PORTABLE (09/30/2023 3:24 [...] clinician. Andrae Tejada APRN IM [facility]STIC [facility] Final Result * (ABNORMAL) BLOOD GAS, VENOUS [...] mmol/L 09/30/2023 3:02 PM EDT [facility] O2 Sat. Venous 87.7(H) 40.0 - 70.0 % 09/30/2023 3:02 PM EDT [facility] [employer] O2 RA 09/30/2023 3:02 PM EDT [facility] Blood VENOUS BLOOD / Unknown Venipuncture / Unknown 09/30/2023 2:53 PM EDT 09/30/2023 2:58 PM EDT [facility] ABLE BODIED TANKERMAN CHEMISTRY ORDERABLES Final Result Performing Organization Address City/[facility]/ZIP Co de Phone Number [facility] [address], [place] [address] * (ABNORMAL) NT PROBNP (09/30/2023 2:53 PM EDT) Only the most recent of3 resultswithin the time period is included. NT Pro-BNP 701(H) <=229 pg/mL 09/30/2023 3:14 PM EDT [facility] Blood VENOUS BLOOD / Unknown Venipuncture / Unknown 09/30/2023 2:53 PM EDT 09/30/2023 2:54 PM EDT Narrative [facility] - 09/30/2023 3:14 PM EDT An NT pro-BNP level less than 300 pg/mL in any patient, regardless of age, effectively rules out acute CHF with a 99% negative predictive value. Ingestion of daljit doses of biotin (>5 mg/day) taken within 8 hours of drawing blood sample can interfere with this immunoassay test. CumedN CHEMISTRY ORDERABLES Final Result Performing Organization Address [facility]/ZIP Co de Phone Number [facility] [address] [place] [address] * EK EKG 12 LEAD (09/30/2023 1:57 PM EDT) Only the most recent of12 resultswithin the time period is included. Anatomical Region Laterality Modality Electrocardiogra phy 09/30/2023 2:04 PM EDT Impressions 09/30/2023 5:[address] [facility] Test Date: 2023-09-30 Pat Name: ODILIA CERON Department: DEPID Room: Gender: Male Student Affairs Vice President: Rt : 1955 Requested By: [facility] Order Number: [id number] Reading MD: Mike Mullen MD Measurements Intervals Tyler Rate: 72 P: GA: QRS: 51 QRSD: 100 T: 29 QT: 360 QTc: 394 Interpretive Statements Probable underlying atrial fibrillatrion [employer] Nonspecific ST abnormalites. Electronically Signed On 09-30-2023 17:48:29 EDT by Mike Mullen MD Narrative Procedure Note Blake Mullen MD - 09/30/[address] Test Date: 2023-09-30 Pat Name: ODILIA CERON Department: DEPID Room: Gender: Male Student Affairs Vice President: Rt : 1955 Requested By: [facility] Order Number: [id number] Reading MD: Mike Mullen MD Measurements Intervals Tyler Rate: 72 P: GA: QRS: 51 QRSD: 100 T: 29 QT: 360 QTc: 394 Interpretive Statements Probable underlying atrial fibrillatrion [employer] ELECTRONIC VENTRICULAR PACEMAKER Nonspecific ST abnormalites. Electronically Signed On 09-30-2023 17:48:29 EDT by Mike Mullen MD Amber Fuller MD IMG ECG ORDERABLES Final Re sult * [facility] EXTREMITY ARTERIAL PHYSIOLOGICAL (05/31/2023 3:00 PM EST) Only the most recent of2 resultswithin the time period is included. Anatomical Region Laterality Modality Vascular, Leg Vascular Imaging 05/31/2023 2:13 PM EST Impressions 05/31/2023 5:56 PM EST Conclusions * Pressure gradients at the ankles indicate bilateral pteg-te-gcqcitxx tibial disease. Mildly dampened PVRs at calf [...] Pressure gradients at the ankles indicate bilateral ejah-cf-qlnnmmnm tibial disease. Mildly dampened PVRs at calf [...] the bilateral first digits. Andreina Stephens APRN [facility] VASCULAR ORDERABLES Final Result * CREATININE (01/09/2023 1:55 PM EDT) Creatinine 0.81 0.67 - 1.30 mg/dL 01/09/2023 2:22 PM EDT [facility] eGFR (CKD-EPIcr 2020) 97 >=60 mL/min/1.7 3 m2 01/09/2023 2:22 PM EDT [facility] Comment:Estimated GFR was ca lculated using the CKD-EPIcr (2020) equation refit without race. The equation is recommended by the National Kid[employer] - [place] [employer] of Nephrology Task Force. Blood VENOUS BLOOD / Unknown Venipuncture / Unknown 01/09/2023 1:55 PM EDT 01/09/2023 1:55 PM EDT Louis Yadav MD CHEMISTRY ORDERABLES Final Resu lt [facility] [address] [facility] [place] [address] * MRI LUMBAR SPINE W [...] 01/09/2023 12:59 PM CLINICAL HISTORY: M54.16-Radiculopathy, lumbar xzbziv-XJV-80-CM. COMPARISON: 09/25/2017, 10/15/2021 PROCEDURE COMMENTS: Multiplanar multiecho [...] 01/09/2023 12:59 PM CLINICAL HISTORY: M54.16-Radiculopathy, lumbar vzjhrr-ERB-65-CM. COMPARISON: 09/25/2017, 10/15/2021 PROCEDURE COMMENTS: Multiplanar multiecho [...] on this study. Yung Hunter M.D. Diplomate, [place] [employer] Electrodiagnostic Medicine Narrative SEP OFFICE [...] 10/15/2021 3:01 PM CLINICAL HISTORY: M54.16-Radiculopathy, lumbar nxordo-ZUJ-33-CM. COMPARISON: 09/25/2017 MR lumbar spine PROCEDURE COMMENTS: [...] 10/15/2021 3:01 PM CLINICAL HISTORY: M54.16-Radiculopathy, lumbar mkxlsv-TCE-71-CM. COMPARISON: 09/25/2017 MR lumbar spine PROCEDURE COMMENTS: [...] hypertrophy. Moderate to severe narrowing of left T9tfhurn foramen and moderate narrowing of right L4 [...] 2:56 PM CLINICAL HISTORY: M25.562-Pain in left egyn-QGM-55-CM G89.29-Other chronic rfcx-BXU-97-CM Z96.659-Presence of unspecified artificial knee xwxcb-RFQ-12-CM COMPARISON: None. PROCEDURE COMMENTS: XR KNEE LEFT AP LATERAL AND AXIAL FINDINGS: No evidence of knee fracture or malalignment. No significant effusion. Status post knee replacement with intact prosthesis. Procedure Note Chilo Evans MD - 07/12/2021 XR KNEE LEFT AP LATERAL AND AXIAL, 07/12/2021 2:56 PM CLINICAL HISTORY: M25.562-Pain in left qrle-XZM-10-CM G89.29-Other chronic rerf-JSA-47-CM Z96.659-Presence of unspecified artificial knee bvnzd-AVU-29-CM COMPARISON: None. PROCEDURE COMMENTS: XR KNEE LEFT [...] 5.6 % 08/11/2020 10:46 PM EST [facility] Est. Avg Glucose 117 mg/dL 08/11/2020 10:46 PM EST [facility] Blood VENOUS BLOOD / Unknown Venipuncture / Unknown 08/11/2020 1:43 PM EST 08/11/2020 1:46 PM EST Narrative [facility] - 08/11/2020 10:46 PM EST REFERENCE RANGE: Normal: 4.0-5.6% Pre-diabetes: 5.7-6.4% Provisional diagnosis of diabetes: >6.4% Hgb F>10% and anything which shortens red cell survival, such as hemolytic anemia, or unstable hemoglobin variants such as HbSS, HbSC, or HbCC, will lower the HbA1c value associated with a given level of glycemic control. us Helder Yung MD CHEMISTRY ORDERABLES Final Res ult [facility] [address] [place] [address] , [address] [place] [phone] * XR CHEST PA AND LATERAL (10/28/2019 [...] 10/23/2019 9:01 AM EDT [facility] UA Appear Turbid(A) Clear 10/23/2019 9:01 AM EDT [facility] UA Glucose Negative Negative mg/dL 10/23/2019 9:01 AM EDT [facility] UA Ketones Trace (5 mg/dL)(A) Negative mg/dL 10/23/2019 9:01 AM EDT [facility] UA Blood Large(A) Negative 10/23/2019 9:01 AM EDT [facility] UA pH 6.0 5.0 - 8.0 pH [...] 10/23/2019 9:01 AM EDT [facility] UA Bacteria 3+(A) Negative /HPF 10/23/2019 9:01 AM EDT [facility] UA Gran Cast 3(H) <=0 /LPF 10/23/2019 9:01 AM EDT [facility] UA Trans Epi <1(H) <=0 /HPF 10/23/2019 9:01 AM EDT [facility] Urine URINE SPECIMEN OBTAINED VIA INDWELLING URINARY CATHETER / Unknown 10/23/2019 8:36 AM EDT 10/23/2019 8:44 AM EDT Helder Ariza MD URINE ORDERABLES Final Result Performing Organization Address [facility] de Phone Number [address] , [place] [address] * POTASSIUM WHOLE BLOOD (10/22/2019 11:57 PM EDT) Only the most recent of16 resultswithin the time period is included. K-WB 3.9 3.5 - 5.0 mEq/L 10/23/2019 12:10 AM EDT [facility] Blood BLOOD SAMPLE TAKEN FROM CENTRAL LINE / Unknown Venipuncture / Unknown 10/22/2019 11:57 PM EDT 10/23/2019 12:08 AM EDT Helder Ariza MD CHEMISTRY ORDERABLES Final Res ult Performing Organization Address [facility] de Phone Number [facility] , [place] [address] * (ABNORMAL) POC OPEN HEART PROFILE (10/21/2019 1:36 PM EDT) Only the most recent of20 resultswithin the time period is included. pH 7.37 7.37 - 7.44 pH 10/21/2019 1:38 PM EDT [facility] pCO2 45 32 - 45 mmHg 10/21/2019 1:38 PM EDT [facility] pO2 78(L) 80 - 100 mmHg 10/21/2019 1:38 PM EDT [facility] HCO3 25.0 20.0 - 29.0 mmol/L 10/21/2019 1:38 PM EDT [facility] TCO2 27 21 - 30 mmol/L 10/21/2019 1:38 PM EDT [facility] Base Excess -0.3 -2.8 - 2.3 mmol/L 10/21/2019 1:38 PM EDT [facility] O2 Sat 94.0(L) 95.0 - 97.0 % 10/21/2019 1:38 PM EDT [facility] Sodium 138 135 - 148 mmol/L 10/21/2019 1:38 PM EDT [facility] K-WB 4.1 3.5 - 5.3 mEq/L 10/21/2019 1:38 PM EDT [facility] Calcium Ionized 1.11(L) 1.12 - 1.32 mmol/L 10/21/2019 1:38 PM EDT [facility] Chloride 103 98 - 108 mmol/L 10/21/2019 1:38 PM EDT [facility] Glucose WB 187(H) 72 - 112 mg/dL 10/21/2019 1:38 PM EDT [facility] Lactic Acid 1.9(H) 1.0 - 1.7 mmol/L 10/21/2019 1:38 PM EDT [facility] Hgb 10.5(L) 13.5 - 17.1 g/dL 10/21/2019 1:38 PM EDT [facility] Hct 31.0(L) 39.0 - 52.0 % 10/21/2019 1:38 PM EDT [facility] Blood ARTERIAL BLOOD / Unknown 10/21/2019 1:36 PM EDT 10/21/2019 1:38 PM EDT us Helder Ariza MD POINT OF CARE TEST ORDERABLES Final Result [facility] [address] [place] [address] * INTERNAL CARDIOVERTER DEFIBRILLATOR (ICD) IMPLANT (10/21/2019 1:18 PM EDT) Narrative [facility] - 10/28/2019 9:16 AM EDT Successful single chamber ICD DFT testing at 15 J us Radha Cotton MD ELECTROPHYSIOLOGY ORDERA BLES Final Result Performing Organization Address [facility] Co de Phone Number [facility] * INTRAOP AIRWAY PLACEMENT (10/21/2019 12:21 PM EDT) Narrative [facility] - 10/21/2019 12:21 PM EDT Valeria Beltrán, DIRECTOR OF INSTRUCTIONAL TECHNOLOGY 10/21/2019 12:21 PM Intraop Airway Placement: Airway type: Non-rebreather us Garfield Wilhelm MD [place] ANESTHESIA Final Re sult Performing Organization Address [facility] de Phone Number [facility] [address] [place] [phone] * (ABNORMAL) GLUCOSE METER POC (10/21/2019 8:06 AM EDT) Only the most recent of24 resultswithin the time period is included. [facility] Glucose Meter POC 125(H) 70 - 100 mg/dL 10/21/2019 8:06 AM EDT [facility] Sample Type Capillary 10/21/2019 8:06 AM EDT [facility] Patient Status Non-Critical Patient 10/21/2019 8:06 AM EDT [facility] Blood BLOOD SPECIMEN / Unknown 10/21/2019 8:06 AM EDT 10/21/2019 8:06 AM EDT us Helder Ariza MD POINT OF CARE TEST ORDERABLES Final Result Performing Organization Address [facility] de Phone Number [facility] [address] [place] [address] * XR ABDOMEN AP (10/21/2019 [...] - 1.9 mmol/L 10/21/2019 6:48 AM EDT [facility] Blood VENOUS BLOOD / Unknown Venipuncture / Unknown 10/21/2019 6:18 AM EDT 10/21/2019 6:31 AM EDT us Michael Malloy MD (Ronny) CHEMISTRY ORDER PARISH Final Result Performing Organization Address [facility] Co de Phone Number [facility] [address] [facility] , [place] [address] * (ABNORMAL) PARTIAL THROMBOPLASTIN TIME (10/21/2019 6:18 AM EDT) Only the most recent of2 resultswithin the time period is included. PTT 23.5(L) 26.0 - 36.4 second(s) 10/21/2019 6:47 AM EDT [facility] Comment: Therapeutic range for unfractionated heparin: 53.0 [...] ORDE RABLES Final Result Performing Organization Address [facility] de Phone Number [facility] [address] [facility] , [address] [place] [phone] * PHOSPHORUS LEVEL (10/21/2019 6:18 AM EDT) Pathologist [facility] Phosphorus 4.0 2.5 - 4.5 mg/dL 10/21/2019 7:03 AM EDT [facility] Blood VENOUS BLOOD / Unknown Venipuncture / Unknown 10/21/2019 6:18 AM EDT 10/21/2019 6:31 AM EDT Michael Malloy MD (Ronny) CHEMISTRY ORDER PARISH Final Result Performing Organization Address [facility] Co de Phone Number [facility] [address] [facility] , [place] [address] * (ABNORMAL) DIFFERENTIAL (10/20/2019 4:08 AM EDT) Only the most recent of5 resultswithin the time period is included. Segs Percent 80 % 10/20/2019 5:06 AM EDT [facility] Lymph Percent 9 % 10/20/2019 5:06 AM EDT [facility] [place] Percent 11 % 10/20/2019 5:06 AM EDT [facility] Neut # 13.6(H) 1.8 - 7.7 x10(3)/mcL 10/20/2019 5:06 AM EDT [facility] Lymph # 1.5 0.6 - 4.8 x10(3)/mcL 10/20/2019 5:06 AM EDT [facility] [place] # 1.9(H) 0.0 - 1.3 x10(3)/mcL 10/20/2019 5:06 AM EDT [facility] Blood VENOUS BLOOD / Unknown Venipuncture / Unknown 10/20/2019 4:08 AM EDT 10/20/2019 4:15 AM EDT Helder Ariza MD HEMATOLOGY ORDERABLES Final Re sult Performing Organization Address [facility] Co de Phone Number [facility] [address] [place] [address] , [place] [phone] * O2 SAT - MIXED VENOUS (10/19/2019 11:54 PM EDT) Only the most recent of4 resultswithin the time period is included. O2 Sat Mixed Venous 48.3 40.0 - 70.0 % 10/20/2019 12:07 AM EDT [facility] Blood VENOUS BLOOD / Unknown Venipuncture / Unknown 10/19/2019 11:54 PM EDT 10/20/2019 12:03 AM EDT Helder Ariza MD CHEMISTRY ORDERABLES Final Res ult Performing Organization Address [facility] Co de Phone Number [facility] [address] [place] [address] , [place] [address] * (ABNORMAL) POC OPEN HEART WHOLE BLOOD GLUCOSE (10/19/2019 12:48 PM EDT) Only the most recent of2 resultswithin the time period is included. Glucose WB 132(H) 72 - 112 mg/dL 10/19/2019 12:50 PM EDT [facility] Blood BLOOD SPECIMEN / Unknown 10/19/2019 12:48 PM EDT 10/19/2019 12:50 PM EDT us Helder Ariza MD POINT OF CARE TEST [place] [address] * CORTISOL (10/19/2019 5:18 AM EDT) Cortisol 8.56 mcg/dL 10/19/2019 6:2 2 AM EDT [facility] Blood ARTERIAL BLOOD / Unknown Venipuncture / Unknown 10/19/2019 5:18 AM EDT 10/19/2019 5:36 AM EDT Narrative [facility] - 10/19/2019 6:22 AM EDT AM: 4.82 [...] with this immunoassay test. us Dejon Osorio ABLE BODIED [place]ER[place] CHEMISTRY ORDERABL ES Final Result [facility] [address] [place] [address] DR, [place] [address] * PLATELETS REQUEST (10/18/2019 2:35 AM EDT) Product Code [id number] [facility] Unit Number [id number] [facility] Dispense Status TRANSFUSED [facility] Blood Expiration Date [facility] ISBT 128 Type 6200 [facility] BA CODING SYSTEM [id number] [facility] Blood Type (Unit) A POS [facility] Product Code [id number] [facility] Unit Number [id number] [facility] Dispense Status TRANSFUSED [facility] Blood Expiration Date [facility] ISBT 128 Type 6200 [facility] BA CODING SYSTEM [id number] [facility] Blood Type (Unit) A POS [facility] Blood 10/18/2019 2:35 AM EDT Helder Ariza MD BLOOD PRODUCT ORDERS Final Res ult [facility] [address] [place] [address] * FFP/PLASMA REQUEST (10/18/2019 2:35 AM EDT) Only the most recent of2 resultswithin the time period is included. Product Code [id number] [facility] Unit Number [id number] [facility] Dispense Status TRANSFUSED [facility] Blood Expiration Date [facility] ISBT 128 Type 6200 [facility] BA CODING SYSTEM [id number] [facility] Blood Type (Unit) A POS [facility] Product Code [id number] [facility] Unit Number [id number] [facility] Dispense Status TRANSFUSED [facility] Blood Expiration Date [facility] ISBT 128 Type 6200 [facility] BA CODING SYSTEM [id number] [facility] Blood Type (Unit) A POS [facility] Blood 10/18/2019 2:35 AM EDT Helder Ariza MD BLOOD PRODUCT ORDERS Final Res ult Performing Organization Address [facility] de Phone Number [facility] [address] [address] * CRYOPRECIPITATE REQUEST (10/18/2019 2:35 AM EDT) Only the most recent of3 resultswithin the time period is included. Product Code [id number] [facility] Unit Number [id number] [facility] Dispense Status TRANSFUSED [facility] Blood Expiration Date [facility] ISBT 128 Type [address] [facility] BLOOD [facility] BA CODING SYSTEM [id number] [facility] Blood Type (Unit) A POS [facility] Product Code [id number] [facility] Unit Number [id number] [facility] Dispense Status TRANSFUSED [facility] Blood Expiration Date [facility] ISBT 128 Type 6200 [facility] BA CODING SYSTEM [id number] [facility] Blood Type (Unit) A POS [facility] 10/18/2019 2:35 AM EDT Helder Ariza MD BLOOD PRODUCT ORDERS Final Res ult Performing Organization Address [facility] Co de Phone Number [facility] [address] [address] * (ABNORMAL) HEMOGLOBIN AND HEMATOCRIT (10/17/2019 8:04 [...] ORDERABLES Final Re sult Performing Organization Address [facility] de Phone Number [facility] [address] [facility] , [address] [place] [phone] * PLATELET COUNT (10/17/2019 8:04 PM EDT) Only the most recent of2 resultswithin the time period is included. Pathologist [facility] Platelet 182 155 - 369 x10(3)/mcL 10/17/2019 8:24 PM EDT [facility] MPV 10.3 8.8 - 12.5 fL 10/17/2019 8:24 PM EDT [facility] Blood ARTERIAL BLOOD / Unknown Venipuncture / Unknown 10/17/2019 8:04 PM EDT 10/17/2019 8:19 PM EDT Helder Ariza MD HEMATOLOGY ORDERABLES Final Re sult Performing Organization Address [facility] de Phone Number [facility] [address] [facility] , [place] [address] * (ABNORMAL) FIBRINOGEN (10/17/2019 5:07 PM EDT) Pathologist [facility] Fibrinogen 595(H) 196 - 447 mg/dL 10/17/2019 5:24 PM EDT [facility] Blood VENOUS BLOOD / Unknown Venipuncture / Unknown 10/17/2019 5:07 PM EDT 10/17/2019 5:10 PM EDT Helder Ariza MD HEMATOLOGY ORDERABLES Final Re sult Performing Organization Address [facility] Co de Phone Number [facility] [address] [facility] , [place] [address] * STAPHYLOCOCCUS AUREUS SCREEN (10/17/2019 4:15 PM EDT) Staph aureus PCR Not Detected Not Detected 10/17/2019 7:04 PM EDT [facility] MRSA PCR Not Detected Not Detected 10/17/2019 7:04 PM EDT [facility] Swab BOTH ANTERIOR NARES / Unknown 10/17/2019 4:15 PM EDT 10/17/2019 5:14 PM EDT Narrative [facility] - 10/17/2019 7:04 PM EDT Staphylococcus aureus target DNA sequence is not detected. This qualitative assay is intended for the detection of Staphylococcus aureus proprietary sequences for the staphylococcal protein A (spa) gene, the gene for methicillin resistance (mecA), and the staphylococcal cassette chromosome mec (SCCmec) inserted into the SA chromosomal attB site. This assay utilizes real time PCR on the [employer] GeneXpert Infinity, and its performance has been verified by the [facility]. A negative result does not rule [...] has been developed and validated by the [facility] laboratory. Detailed methodology is available upon request. Helder Ariza MD MICROBIOLOGY - GENERAL ORDERAB LES Final Result [facility], [address] , [place] [address] * TRANSFUSE CRYOPRECIPITATE (10/17/2019 3:59 PM EDT) [...] - 169 second(s) 10/17/2019 3:58 PM EDT [facility] Blood BLOOD SPECIMEN / Unknown 10/17/2019 3:41 PM EDT 10/17/2019 3:58 PM EDT Christ Soto MD POINT OF CARE TEST ORDERABLES Fi nal Result [facility] [address] [place] [address] * PATHOLOGY TISSUE REQUEST (10/17/2019 2:37 PM EDT) CASE REPORT Surgical Pathology Case: [id number] Authorizing Provider: Helder Ariza MD Collected: 10/17/2019 1437 Ordering Location: [facility] Received: 10/18/2019 1014 Pathologist: Osei Tyler MD Specimen: Mitral, mitral valve papillary muscle 10/21/2019 10:36 AM EDT [facility] 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 10/21/2019 10:36 AM EDT [facility] at 1036 EDT GROSS DESCRIPTION [...] cut surfaces. No distinct calcifications are identified. Tightening Machine Operator sections are submitted in A1. /MK 10/21/2019 10:36 AM EDT [facility] MICROSCOPIC DESCRIPTION Microscopic examination is performed and the findings corroborate the diagnosis. 10/21/2019 10:36 AM EDT [facility] EMBEDDED IMAGES 10/21/2019 10:36 AM EDT [facility] Tissue MITRAL VALVE STRUCTURE / Unknown 10/17/2019 2:37 PM EDT 10/18/2019 10:14 AM EDT us Helder Ariza MD PATHOLOGY ORDERABLES Final Res ult Performing Organization Address [facility] Co de Phone Number [facility] [address] [place] [address] [facility] [address] [place] [address] * DOMINICK (10/17/2019 12:01 PM EDT) Narrative [facility] - 10/17/2019 12:01 PM EDT [...] ORDERABLES Final Resu lt Performing Organization Address [facility] Co de Phone Number [facility] [address] [place], [place] [phone] * ANE SWAN JOSÉ MIGUEL PLACEMENT (10/17/2019 11:59 AM EDT) Narrative [facility] - 10/17/2019 11:59 AM EDT [...] ORDERABLES Final Resu lt Performing Organization Address [facility] de Phone Number [facility] [address] [place] [address] * ANE INTRODUCER PLACEMENT (10/17/2019 11:55 AM EDT) Narrative [facility] - 10/17/2019 11:55 AM EDT [...] ORDERABLES Final Resu lt Performing Organization Address [facility] Co de Phone Number [facility] [address] [place] [phone] * INTRAOP AIRWAY PLACEMENT (10/17/2019 11:50 AM EDT) Narrative [facility] - 10/17/2019 11:50 AM EDT [...] [place] ANESTHESIA Final Result Performing Organization Address [facility] Co de Phone Number [facility] [address] [place] [address] * BB HISTORY CHECK (10/17/2019 10:15 AM EDT) BB HISTORY CHECK (1) No Previous History 10/17/2019 10:32 AM EDT [facility] Blood ARTERIAL BLOOD / Unknown 10/17/2019 10:15 AM EDT Anders New MD BLOOD BANK ORDERABLES Final Result Performing Organization Address [facility] de Phone Number [facility] [address] [place] [address] * ABORH (10/17/2019 10:15 AM EDT) ABORH Int A POS 10/17/2019 10:57 AM EDT [facility] Blood ARTERIAL BLOOD / Unknown 10/17/2019 10:15 AM EDT us Anders New MD BLOOD BANK ORDERABLES Final Result Performing Organization Address [facility] de Phone Number [facility] [address] [place] [address] * RED BLOOD CELLS REQUEST (10/17/2019 10:15 AM EDT) Only the most recent of2 resultswithin the time period is included. [facility] Product Code [id number] [facility] Unit Number [id number] [facility] Crossmatch Interp Compatible [facility] Dispense Status RETURNED [facility] Blood Expiration Date [facility] ISBT 128 Type 6200 [facility] BA CODING SYSTEM [id number] [facility] Blood Type (Unit) A POS [facility] Product Code [id number] [facility] Unit Number [id number] [facility] Crossmatch Interp Compatible [facility] Dispense Status RETURNED [facility] Blood [facility]piration Date [facility] ISBT 128 Type [address] [facility] BA CODING SYSTEM [id number] [facility] Blood Type (Unit) A POS [facility] Blood 10/17/2019 10:1 5 AM EDT 10/17/2019 10:19 AM EDT us Helder Ariza MD BLOOD PRODUCT [place] [address] * ANTIBODY SCREEN IGG (10/17/2019 10:15 AM EDT) [facility] ABSC IgG Int Negative 10/17/2019 11:07 AM EDT [facility] BLOOD [facility] Blood ARTERIAL BLOOD / Unknown 10/17/2019 10:15 AM EDT us Anders New MD BLOOD BANK ORDERABLES Final Result Performing Organization Address City/[facility]/ZIP Co de Phone Number [address] [address] * (ABNORMAL) ACTIVATED CLOTTING TIME LR POC (10/17/2019 10:10 AM EDT) Only the most recent of4 resultswithin the time period is included. [facility] ACT-LR 354(H) 89 - 169 second(s) 10/17/2019 10:20 AM EDT [facility] Blood BLOOD SPECIMEN / Unknown 10/17/2019 10:10 AM EDT 10/17/2019 10:20 AM EDT Christ Soto MD POINT OF CARE TEST ORDERABLES Fi nal Result Performing Organization Address [facility] Phone Number [facility] [address] [place] [phone] * HEPARIN ANTI-XA, UNF (10/15/2019 9:39 AM EDT) Only the most recent of8 resultswithin the time period is included. Pathologist [facility] Heparin Level UNF 0.36 0.30 - 0.70 IU/mL 10/15/2019 9:55 AM EDT [facility] Comment:The therapeutic rang e for heparinized patients monitored by the Heparin Lvl UF is 0.30-0.70 IU/mL. Blood VENOUS BLOOD / Unknown Venipuncture / Unknown 10/15/2019 9:39 AM EDT 10/15/2019 9:43 AM EDT Delicia Ramesh MD HEMATOLOGY ORDERABLES Coco l Result Performing Organization Address [facility] Phone Number [facility] [address] [place] [address] * EXTRA LAVENDER (10/14/2019 6:09 PM EDT) Blood VENOUS BLOOD / Unknown Venipuncture / Unknown 10/14/2019 6:09 PM EDT 10/14/2019 6:27 PM EDT Helene Covington MD HEMATOLOGY ORDERABLES Final Resu lt Performing Organization Address [facility] Phone Number [facility] [address] [place] [address] * EXTRA TAFOYA URINE CX (10/14/2019 5:47 AM EDT) Urine URINE SPECIMEN COLLECTION, CLEAN CATCH / Unknown 10/14/2019 5:47 AM EDT 10/14/2019 6:02 AM EDT us Louis Cassidy MD MICROBIOLOGY - GENERAL ORDERABL ES Final Result Performing Organization Address [facility] Phone Number [facility] [address] [place] [address] * REPEAT LACTIC ACID (10/12/2019 4:34 PM EDT) Lactic Acid 1.6 0.5 - 1.9 mmol/L 10/12/2019 5:02 PM EDT [facility] Blood VENOUS BLOOD / Unknown Venipuncture / Unknown 10/12/2019 4:34 PM EDT 10/12/2019 4:47 PM EDT us Louis Cassidy MD CHEMISTRY ORDERABLES Final Resu lt Performing Organization Address [facility] Phone Number [facility] [address] [place] [phone] * CT CHEST W CONTRAST (10/12/2019 4:33 [...] 3:22 PM EDT) Pathologist [facility] CORONAVIRUS 1400-KTUM-TNG-2 Negative Not Detected 10/14/2019 10:01 PM EDT EXTERNAL LAB Swab NASOPHARYNGEAL STRUCTURE / Unknown 10/12/2019 3:22 PM EDT 10/12/2019 3:31 PM EDT Narrative EXTERNAL LAB - 10/14/2019 10:01 PM EDT Test performed by reference lab: Tram. See scanned report. Caution should be exercised when interpreting negative results. A negative result does not rule out COVID-19 and cannot be used as sole basis for treatment or patient management decisions. If COVID-19 is still suspected following a negative result, re-testing should be considered. Louis Cassidy MD LAB SEND OUT ORDERABLES Final R esult Performing Organization Address City/[facility] Co de Phone Number EXTERNAL LAB See Scanned Report * INFLUENZA A/B ANTIGENS (10/12/2019 3:22 PM EDT) Influ A Ag Not Detected Not Detected 10/12/2019 3:52 PM EDT [facility] Influ B Ag Not Detected Not Detected 10/12/2019 3:52 PM EDT [facility] Swab NASOPHARYNGEAL STRUCTURE / Unknown 10/12/2019 3:22 PM EDT 10/12/2019 3:39 PM EDT Narrative [facility] - 10/12/2019 3:52 PM EDT Negative or Invalid results in patients with high clinical suspicion should be verified with RT-PCR, available as Respiratory Viral Mini Panel ([id number]) in [facility]. The WHO recommends molecular testing (Respiratory [...] ORDERABL ES Final Result Performing Organization Address [facility] de Phone Number [facility] [address] [place] [address] * PROCALCITONIN (10/12/2019 2:56 PM EDT) Procalcitonin 0.06 <=0.49 ng/mL 10/12/2019 3:38 PM EDT [facility] Blood VENOUS BLOOD / Unknown Venipuncture / Unknown 10/12/2019 2:56 PM EDT 10/12/2019 3:04 PM EDT Narrative [facility] - 10/12/2019 3:38 PM [...] ORDERABLES Final Resu lt Performing Organization Address [facility] de Phone Number [address] [address] * BLOOD CULTURE (NO STAIN) (10/12/2019 2:56 PM EDT) Only the most recent of2 resultswithin the time period is included. Culture Result No Growth at 120 hours. BLOOD CULTURE (NO STAIN) 10/18/2019 6:01 AM EDT [facility] Blood VENOUS BLOOD / Unknown Venipuncture / Unknown 10/12/2019 2:56 PM EDT 10/12/2019 3:04 PM EDT Louis Cassidy MD MICROBIOLOGY - GENERAL ORDERABL ES Final Result Performing Organization Address [facility] Co de Phone Number [facility] [address] [place] [address] , [place] [address] * (ABNORMAL) COLOGUARD (03/27/2019 10:00 AM EDT) COLOGUARD CLINICAL REPORT Positive (A) Not Applicable [facility] Comment: It is recommended that [...] Maren Tobin al, N Engl J Med 2014;370(14):4002-7704.) Test Type: Composite algorithmic analysis of stool [...] can be accessed at the following location: [email or web address]. Additional description of the Cologuard test process, warnings and precautions can be found at [email or web address]. Rx Only. Stool specimen (specimen) 03/27/2019 10:00 AM EDT 03/28/2019 7:12 PM EDT Temi Isabel ABLE BODIED TANKERMAN EXACT SCIENCE - ORDERABLE S Final Result Performing Organization Address City/[facility]/ZIP Co de Phone Number [facility] [address] [place] [address], [facility] [email or web address] [address] [facility] [address] * PROSTATE SPECIFIC ANTIGEN (SCREENING) (05/21/2018 8:10 AM EST) Total Psa 2.82 <=4.00 ng/mL 05/21/2018 4:20 PM EST [facility] Blood Venipuncture / Unknown 05/21/2018 8:10 AM EST 05/21/2018 8:10 AM EST Narrative [facility] - 05/21/2018 4:20 PM EST Prostate cancer [...] interfere with this immunoassay test. Temi Isabel ABLE BODIED [employer]ANKERMAN CHEMISTRY ORDERABLES Coco l Result Performing Organization Address City/[facility]/ZIP Co de Phone Number [facility] [address] [facility] , [address] [place] [phone] * THYROID STIMULATING HORMONE (05/21/2018 8:10 AM EST) Only the most recent of2 resultswithin the time period is included. TSH 2.300 0.270 - 4.200 mcIU/mL 05/21/2018 4:49 PM EST [facility] Blood Venipuncture / Unknown 05/21/2018 8:10 AM EST 05/21/2018 8:10 AM EST Narrative [facility] - 05/21/2018 4:49 PM EST Ingestion of daljit doses of biotin (>5 mg/day) taken within 8 hours of drawing blood sample can interfere with this immunoassay test. Temi Isabel ABLE BODIED TANKERMAN CHEMISTRY ORDERABLES Coco l Result Performing Organization Address [facility] de Phone Number [facility] [employer] [address] [facility] , [address] [place] [phone] * TESTOSTERONE LEVEL TOTAL (05/21/2018 8:10 AM EST) Only the most recent of2 resultswithin the time period is included. Pathologist [facility] Testosterone Lvl 630 300 - 720 ng/dL 05/21/2018 4:49 PM EST [facility] Blood VENOUS BLOOD / Unknown Venipuncture / Unknown 05/21/2018 8:10 AM EST 05/21/2018 8:10 AM EST Narrative [facility] [employer] - 05/21/2018 4:49 PM EST Values less than 12 ng/dL are not reliable as the intermediate precision coefficient of variation is > 20%. Ingestion of daljit doses of biotin (>5 mg/day) taken within 8 hours of drawing blood sample can interfere with this immunoassay test. Temi Isabel APRN CHEMISTRY ORDERABLES Coco l Result Performing Organization Address [facility] de Phone Number [facility] [employer] [address] [facility] , [place] [address] * XR TIBIA FIBULA LEFT [...] since November 26, 2016. M48.02-Spinal stenosis, cervical pfzxxl-DVQ-85-CM T84.216A-Breakdown (mechanical) of internal fixation device of vertebrae, initial jptvwkgah-ZCG-30-CM. TECHNICAL FACTORS: Sagittal and axial T1 and [...] tingling since November 26, 2016.M48.02-Spinal stenosis, cervical mvliet-XTC-28-CM T84.216A-Breakdown (mechanical) of internal fixation device ofvertebratracy, initial qrqelbfzj-XWC-31-CM. TECHNICAL FACTORS: Sagittal and axial T1 and [...] at C4-C5 and C5-C6 are unremarkable. Right C4-U5qunxtl foramen is moderately narrowed. Left C5-C6 neural [...] EST) Final No growth at 3 days. [facility] GS Few WBC's Moderate RBC's No organisms seen [facility] Joint fluid specimen (specimen) STRUCTURE OF LEFT KNEE REGION / Unknown 08/10/2011 3:45 PM EST 08/10/2011 4:50 PM EST Narrative [facility] - 08/14/2011 7:55 AM EST Left knee Result [facility] Yuli Fermin MD MICROBIOLOGY - GENERAL ORDERABL ES Final Result Performing Organization Address [facility] Co de Phone Number [facility] [address] [place] [address] * ANAEROBIC CULTURE (08/10/2011 3:45 PM EST) Final No anaerobic growth at 5 days [facility] Joint fluid specimen (specimen) STRUCTURE OF LEFT KNEE REGION / Unknown 08/10/2011 3:45 PM EST 08/10/2011 4:50 PM EST Narrative [facility] - 08/16/2011 5:01 PM EST Left knee Result [facility] Yuli Fermin MD MICROBIOLOGY - GENERAL ORDERABL ES Final Result Performing Organization Address [facility] de Phone Number [facility] [address] [place] [address] * JOINT FLUID CRYSTALS (08/10/2011 3:45 PM EST) Crystal JF None Seen [facility] Joint fluid specimen (specimen) 08/10/2011 3:45 PM EST 08/10/2011 4:44 PM EST Narrative [facility] - 08/10/2011 8:32 PM EST Left knee us Yuli Fermin MD BODY FLUIDS AND STOOLS ORDERABL ES Final Result Performing Organization Address [facility] [place]/[facility] de Phone Number [facility] [address] [place] [address] * JOINT FLUID CELL COUNT (08/10/2011 3:45 [...] PM EST 08/10/2011 4:44 PM EST Narrative [facility] - 08/10/2011 6:10 PM EST Left knee us Yuli Fermin MD BODY FLUIDS AND STOOLS ORDERABL ES Final Result Performing Organization Address [facility] de Phone Number [facility] [address] [place] [address] * SCANNED PRE/POST PROCEDURES (11/12/2010 12:00 AM [...] Pathologist [facility] HIV Ag/AB Non-Reactiv e [facility] Blood specimen (specimen) 11/08/2010 12:15 PM EDT 11/08/2010 12:26 PM EDT Spring Varma MD IMMUNOLOGY ORDERABLES Final R esult Performing Organization Address [facility] Co de Phone Number [facility] [address] [place] [address] * TROPONIN-I (11/08/2010 12:15 PM EDT) [facility] Troponin-I 0.02 <=0.06 ng/mL [facility] Comment: Troponin Level Significance < [...] ORDERABLES Final Re sult Performing Organization Address [facility]/ZIP Co de Phone Number [facility] [address] [place] [address] * ACUTE HEPATITIS PANEL (11/08/2010 12:15 PM EDT) [facility] Hep Bs Ag Negative Negative [facility] Hep B Core IgM Negative Negative [facility] Hep A IgM Negative Negative [facility] Hep C Ab Negative Negative [facility] Blood specimen (specimen) UPPER LIMB STRUCTURE / Unknown 11/08/2010 12:15 PM EDT 11/08/2010 12:26 PM EDT Result [facility] Spring Varma MD CHEMISTRY ORDERABLES Edited Performing Organization Address [facility] de Phone Number [facility] [address] [place] [address] * HEPATIC FUNCTION PANEL (11/08/2010 12:15 PM EDT) Total Protein 6.5 6.0 - 8.2 gm/dL [facility] Albumin 3.6 3.6 - 4.7 gm/dL [facility] Bili Direct 0.2 0.0 - 0.4 mg/dL [facility] Bili Total 1.3 0.1 - 1.4 mg/dL [facility] AST 36 16 - 55 IU/L [facility] ALT 30 6 - 72 IU/L [facility] Alk Phos 94 41 - 119 IU/L [facility] Blood specimen (specimen) UPPER LIMB STRUCTURE / Unknown 11/08/2010 12:15 PM EDT 11/08/2010 12:26 PM EDT Result [facility] Spring Varma MD CHEMISTRY ORDERABLES Final Re sult Performing Organization Address [facility] de Phone Number [facility] [address] [place] [address] * SCANNED OR REPORT (11/08/2010 12:00 AM [...] fractures or bony lesions. Yuli Fermin MD [facility] DIAGNOSTIC IMAGING ORDERABL ES Final [...] No definite fracture seen. Yuli Fermin MD [facility] DIAGNOSTIC IMAGING ORDERABL ES Final [...] The pedicles appear intact. Yuli Fermin MD [facility] DIAGNOSTIC IMAGING ORDERABL ES Final [...] or subluxation is identified. Yuli Fermin MD [facility] DIAGNOSTIC IMAGING ORDERABL ES Final [...] without fracture. No hemo- or pneumothorax seen. Kizzy Wang NP IMG DIAGNOSTIC IMAGING ORDERABLE S Final Result * ECHO - HISTORICAL (10/27/2009 12:00 AM EDT) Only the most recent of2 resultswithin the time period is included. Anatomical Region Laterality Modality Other 10/27/2009 Narrative 07/12/2011 3:44 AM EST NOTICE: This report was electronically copied on 08/24/2011 from historical data generated by a practice prior to that practice using [facility] for Medical Records. Performing Provider: Scottie Elkins [...] Impression- Left basilar scar and/or recurrent atelectasis. Overhead Foreman- YULI HANSEN MD Reading Physician- YULI HANSEN [...] Impression- Left basilar scar and/or recurrent atelectasis. Overhead Foreman- YULI HANSEN MD Reading Physician- YULI HANSEN MD Released Date Time- 10/19/09 1541 us Carlene Barton APRN IMG [facility] STAR RAD HISTORICAL Fin al Result * EK EKG REG (10/19/2009 3:28 PM EDT) Only the most recent of2 resultswithin the time period is included. Anatomical Region Laterality Modality Other 10/19/2009 3:28 PM EDT Narrative 10/19/2009 8:29 PM EDT Atrial fibrillation Anterolateral T wave changes are nonspecific Compared to prior tracing, rhythm is no longer sinus Abnormal ECG Overhead Foreman- PAMELLA Green PhysicianFelix HAMMOND Released Date Time- 10/19/092028 Procedure Note Pamella Hammond MD - 10/19/2009 Atrial fibrillation Anterolateral T wave changes are nonspecific Compared to prior tracing, rhythm is no longer sinus Abnormal ECG Overhead Foreman- PAMELLA Green Physician- PAMELLA HAMMOND Released Date Time- 10/19/092028 Carlene Barton APRN [facility] CARD HISTORICAL Fi nal Result * CT [...] is most prominent at the C5-C6 level. Overhead Foreman- SPRING Green Physician- RAFFY HERNANDEZ M.D. Released [...] is most prominent at the C5-C6 level. Overhead Foreman- SPRING Green Physician- RAFFY HERNANDEZ M.D. Released Date Time- 05/22/09 1840 Alvarez Jaimes MD [facility] HISTORIC AL Final Result * MR CERVICAL [...] right side at C3-C4, C4-C5, and C6-C7. Overhead Foreman- JODEE Green Physician- GAYLE POWERS M.D. Released [...] right side at C3-C4, C4-C5, and C6-C7. Overhead Foreman- JODEE Green Physician- GAYLE POWERS M.D. Released Date Time- 01/19/09 1502 us Alvarez Jaimes MD [facility] AL Final Result * XR CHEST PA OR AP (12/23/2007 12:00 AM EDT) Anatomical Region Laterality Modality Other 12/23/2007 12/23/2007 Narrative 12/23/2007 12:00 AM EDT Name: SANTOS Story : 1955 VERIFIED [facility] Reason: ac3 Dict.Staff: ARNULFO HURT [id number] Verified By: ARNULFO HURT Niall: 12/23/07 12:55 [...] SANTOS Story : 1955 VERIFIED [facility] Reason: ac3 Dict.Staff: ARNULFO HURT [id number] Verified By: ARNULFO HURT Niall: 12/23/07 12:55 [...] end of result us U Unknown IMG [facility] RAD HISTORICAL Final Result * XR CHEST PA & LAT (05/19/2006 12:00 AM EST) Anatomical Region Laterality Modality Other 05/19/2006 05/19/2006 Narrative 05/19/2006 12:00 AM EST VERIFIED [facility] Reason: 427.31 272.4 401.9 Dict.Staff: DEVAUGHN PARIS Verified By: YULI HANSEN Niall: 05/22/06 6:27 pm Exams: DIAG-CHEST PA & LATERAL TWO-VIEW CHEST: 05/19/2006. INDICATION: 427.3. IMPRESSION: Normal. D.LETICIA:lkd end of result Procedure Note Unknown, U - 10/22/2009 VERIFIED [facility] Reason: 427.31 272.4 401.9 Dict.Staff: DEVAUGHN PARIS Verified By: YULI HANSEN Niall: 05/22/06 6:27 pm Exams: DIAG-CHEST PA & LATERAL TWO-VIEW CHEST: 05/19/2006. INDICATION: 427.3. IMPRESSION: Normal. D.CHADDST:lkd end of result us U Unknown [facility] RAD HISTORICAL Final Result Visit Diagnoses [...] hypertension 09/09/2019 NSTEMI (non-ST elevated myocardial infarction) ([facility]) Acute myocardial infarction, subendocardial infarction, episode of care unspecified 10/15/2019 Right-sided chest pain 10/12/2019 Elevated troponin Other abnormal blood chemistry 10/12/2019 Shortness of breath 10/12/2019 Suspected COVID-19 virus infection 10/12/2019 Atrial fibrillation, unspecified type (HCC) 10/12/2019 Coronary artery disease involving [place] heart with angina pectoris, unspecified vessel or lesion type 10/17/2019 Acute ischemic heart disease ([facility]) Acute myocardial infarction, unspecified site, episode of care unspecified 10/17/2019 Cardiogenic shock ([facility]) Cardiogenic shock 10/17/2019 Cardiac arrhythmia, unspecified cardiac arrhythmia type 10/21/2019 S/P CABG (coronary artery bypass graft) Postsurgical aortocoronary bypass status 10/30/2019 Chest pain, unspecified type 10/15/2019 ST elevation myocardial infarction (STEMI), unspecified artery ([facility]) 10/15/2019 Coronary artery disease involving [place] heart with angina pectoris, unspecified vessel or lesion type 10/15/2019 Cardiac arrhythmia, unspecified cardiac arrhythmia type 10/15/2019 S/P CABG (coronary artery bypass graft) Postsurgical aortocoronary bypass status 11/05/2019 Atherosclerotic heart disease of [place] coronary artery with unspecified angina pectoris 11/06/2019 [...] fibrillation (HCC) Ventricular fibrillation 12/03/2019 Cardiogenic shock ([facility]) Cardiogenic shock 12/03/2019 S/P CABG x 2 [...] care facility 08/11/2020 Coronary artery disease involving [place]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 08/11/2020 Essential hypertension [...] Coronary atherosclerosis of unspecified type of vessel, [place] or graft 10/27/2021 NSVT (nonsustained ventricular tachycardia) [...] and arterioles 04/26/2022 Coronary artery disease involving [place]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 04/26/2022 Atypical nevus Benign neoplasm of skin, site unspecified 04/26/2022 Paroxysmal atrial fibrillation (HCC) Atrial fibrillation 04/26/2022 ASHD (arteriosclerotic heart disease) Coronary atherosclerosis of unspecified type of vessel, [place] or graft 04/28/2022 NSVT (nonsustained ventricular tachycardia) [...] Coronary atherosclerosis of unspecified type of vessel, [place] or graft 10/27/2022 Vector Remote Device 11/15/2022 [...] Coronary atherosclerosis of unspecified type of vessel, [place] or graft 07/06/2023 SOB (shortness of breath) Shortness of breath 07/06/2023 ASHD (arteriosclerotic heart disease) Coronary atherosclerosis of unspecified type of vessel, [place] or graft 07/27/2023 SOB (shortness of breath) Shortness of breath 07/27/2023 Coronary artery disease involving [place]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 07/31/2023 ASHD (arteriosclerotic heart disease) Coronary atherosclerosis of unspecified type of vessel, [place] or graft 07/31/2023 SOB (shortness of breath) Shortness of breath 07/31/2023 ASHD (arteriosclerotic heart disease) Coronary atherosclerosis of unspecified type of vessel, [place] or graft 08/08/2023 SOB (shortness of breath) [...] Atrial fibrillation 10/11/2023 Coronary artery disease involving [place]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 10/11/2023 NSTEMI (non-ST elevated myocardial infarction) ([facility]) Acute myocardial infarction, subendocardial infarction, episode of care unspecified 10/11/2023 Chronic systolic heart failure ([facility]) Chronic systolic heart failure 10/11/2023 Hx of mitral valve replacement Heart valve replaced by other means 10/11/2023 S/P CABG x 2 Postsurgical aortocoronary bypass status 10/11/2023 Primary hypertension Unspecified essential hypertension 10/11/2023 Osteoarthritis of one hip, right 10/17/2023 Open wound of right lower leg, initial encounter 10/17/2023 Chronic venous hypertension (idiopathic) with ulcer and inflammation of right lower extremity ([facility]) 10/23/2023 Venous stasis ulcer of right lower leg with edema of right lower leg ([facility]) 10/23/2023 Venous ulcer with fat layer exposed ([facility]) 10/23/2023 Chronic systolic heart failure ([facility]) Chronic systolic heart failure 10/23/2023 Paroxysmal atrial fibrillation ([facility]) Atrial fibrillation 10/23/2023 Venous stasis ulcer of right lower leg with edema of right lower leg (HCC) 10/31/2023 Chronic venous hypertension (idiopathic) with ulcer and inflammation of right lower extremity ([facility]) 10/31/2023 Venous insufficiency Unspecified venous (peripheral) insufficiency 10/31/2023 Venous stasis ulcer of right lower leg with edema of right lower leg (HCC) 11/07/2023 Venous insufficiency Unspecified venous (peripheral) insufficiency 11/07/2023 Venous ulcer with fat layer exposed ([facility]) 11/07/2023 Venous stasis ulcer of other part of right lower leg limited to breakdown of skin, unspecified whether varicose veins present (HCC) 11/07/2023 Venous stasis ulcer of right lower leg with edema of right lower leg (HCC) 11/14/2023 Venous insufficiency Unspecified venous (peripheral) insufficiency 11/14/2023 Venous ulcer with fat layer exposed ([facility]) 11/14/2023 Venous stasis ulcer of other part of right lower leg limited to breakdown of skin, unspecified whether varicose veins present ([facility]) 11/14/2023 Contusion of lesser toe of left [...] fibrillation 11/30/2023 NSTEMI (non-ST elevated myocardial infarction) ([facility]) Acute myocardial infarction, subendocardial infarction, episode of care unspecified 11/30/2023 Coronary artery disease involving [place]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 11/30/2023 Ventricular fibrillation ([facility]) Ventricular fibrillation 11/30/2023 single chamber ICD 11/30/2023 Acute on chronic HFrEF (heart failure with reduced ejection fraction) ([facility]) 11/30/2023 Hx of mitral valve replacement Heart valve replaced by other means 11/30/2023 NSVT (nonsustained ventricular tachycardia) ([facility]) Paroxysmal ventricular tachycardia 11/30/2023 Presence of automatic cardioverter/defibrillator (AICD) Automatic implantable cardiac defibrillator in situ 11/30/2023 Implantable defibrillator reprogramming/check Fitting and adjustment of automatic implantable cardiac defibrillator 11/30/2023 Paroxysmal atrial fibrillation (HCC) Atrial fibrillation 11/30/2023 Cardiogenic shock ([facility]) Cardiogenic shock 11/30/2023 Ventricular fibrillation ([facility]) Ventricular fibrillation 11/30/2023 Chronic systolic heart failure ([facility]) Chronic systolic heart failure 11/30/2023 Vector Remote Device 12/01/2023 Non-pressure chronic ulcer of right lower leg with fat layer exposed ([facility]) Ulcer of lower limb, unspecified 12/08/2023 Edema [...] heart failure 01/29/2024 Coronary artery disease involving [place]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 01/29/2024 Primary hypertension [...] heart failure 02/09/2024 Coronary artery disease involving [place]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 02/09/2024 Primary hypertension [...] Coronary atherosclerosis of unspecified type of vessel, [place] or graft 04/04/2024 SOB (shortness of breath) Shortness of breath 04/04/2024 SI (sacroiliac) joint dysfunction Disorders of sacrum 04/05/2024 Sacroiliac joint pain Disorders of sacrum 04/05/2024 Sacroiliitis, not elsewhere classified 04/05/2024 Chronic low back pain, unspecified back pain laterality, unspecified whether sciatica present 04/05/2024 Vector Remote Device 04/11/2024 VT (ventricular tachycardia) ([facility]) Paroxysmal ventricular tachycardia 04/12/2024 Non-pressure chronic ulcer [...] Coronary atherosclerosis of unspecified type of vessel, [place] or graft 04/19/2024 SI (sacroiliac) joint dysfunction [...] heart failure 06/12/2024 Coronary artery disease involving [place]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 06/12/2024 Primary hypertension [...] Coronary atherosclerosis of unspecified type of vessel, [place] or graft 06/13/2024 Lumbar foraminal stenosis Spinal [...] Coronary atherosclerosis of unspecified type of vessel, [place] or graft 07/02/2024 SOB (shortness of breath) [...] Coronary atherosclerosis of unspecified type of vessel, [place] or graft 08/18/2024 Vector Remote Device 09/05/2024 [...] Coronary atherosclerosis of unspecified type of vessel, [place] or graft 10/02/2024 Vector Remote Device 10/06/2024 [...] essential hypertension 10/15/2019 Coronary artery disease involving [place]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 10/15/2019 Class 1 [...] HFrEF (heart failure with reduced ejection fraction) ([facility]) 09/30/2023 Osteoarthritis of one hip, right 12/27/2023 [...] Lifestyle No Temi Isabel APRN Care Teams Milk Runner Relationship Specialty Start Date End Date Yuli Caruso MD [facility] [address] [place] [address] PCP - General Family Medicine 10/05/23
--- OUTSIDE RECORDS SUMMARY | 2025-01-29 11:40 | XMS_ITS | Encounter Summary ---
Author Organization [place] [address] Care Team Providers Care Verse Writer Name Role Phone Temi Isabel APRN Primary Care Provider [phone] Reena Benson RN Unavailable Unavailable Helder Yung MD Primary Care Provider [phone] Temi Isabel APRN Primary Care Provider [phone] Gaye Stern MD Primary Care Provi sonal Unavailable Rene Caruso MD Primary Care Provider [phone] Encounter Details Date Type Department Care Team (Latest Contact Info) Description 11/06/2019 Lab Requisition [facility] [place] [address] [place] [address] Atherosclerotic heart disease of tribal coronary artery with unspecified angina pectoris Social [...] 1:45 PM EST Office [place] [address] Jona Chau MD [address] [facility] [place] [place] [address] 11/07/2025 1:30 PM EDT Office Visit [facility] [address] [place] [address] [address] [place] [address] 11/07/2025 2:00 PM EDT Office Visit [facility] [address] [place] [address] [address] [place] [address] Funmi Aldrich APRN [address] [place] [address] documented as of this encounter Goals [...] 1:30 PM EDT Atherosclerotic heart disease of tribal coronary artery with unspecified angina pectoris (HCC) [...] mg/dL 11/06/2019 5:44 PM EDT PREFERRED LAB [facility], [facility] Glucose Lvl 95 82 - 100 mg/dL 11/06/2019 5:44 PM EDT PREFERRED LAB [facility], [facility] BUN 14 8 - 23 mg/dL 11/06/2019 5:44 PM EDT [facility], [facility] Creatinine 1.14 0.67 - 1.30 mg/dL 11/06/2019 5:44 PM EDT [facility], [facility] GFR Afr Am 79 >=60 mL/min/1.7 3 m2 11/06/2019 5:44 PM EDT [facility] GFR Non Afr Am 69 >=60 mL/min/1.7 3 m2 11/06/2019 5:44 PM EDT [facility] Comment: This estimated GFR [...] CHEMISTRY ORDERABLES Final Res ult PREFERRED LAB [facility], [facility] [address] [facility], [place] [address] [address] documented in this encounter Visit Diagnoses Diagnosis Atherosclerotic heart disease of tribal coronary artery with unspecified angina pectoris documented in this encounter Care Teams Verse Writer Relationship Specialty Start Date End Date Temi Isabel APRN [address] [place] [address] [place] [address] PCP - General Nurse Practitioner-Family 02/27/1707/10 Helder Yung MD [address] [place] [address] [place] [address] PCP - General Family Medicine 07/23/20 08/10/20 Temi Isabel APRN [address] [place] [address] [place] [address] PCP - General Nurse Practitioner-Family 08/11/2002/07 Gaye Stern MD [address] [place] [address] [place] [address] PCP - General Family Medicine 04/26/22 10/03/23 Rene Caruso MD [facility] [address] [place] [address] PCP - General Family Medicine 10/05/23 Reena Benson, SHA Stock Clerk Self Service Store Registered Nurse 10/31/19 12/31/19 documented as of this encounter
== END 2025-01-28 23:59 | disposition home or self-care (01) ==
LOC: LAB.DROPOF 01-29 11:34
PROVIDERS: PCP Family Medicine; Visit Provider Family Medicine
DX: I73.9 Peripheral vascular disease, unspecified (principal); I10 Essential (primary) hypertension
CPT/HCPCS: 80048; 85025

== ENCOUNTER 2025-02-03 13:57 | Outpatient (RCR) | payer MEDICARE, SELFPAY ==
--- NOTE | 2025-02-03 15:56 | HMH.OPLYMPH ---
Rehab Inpt Wound Evaluation Rehab OP Lymphedema Evaluation Start: 02/03/25 15:02 Freq: Status: Active Protocol: Document 02/03/25 15:02 NELLIE (Rec: 02/03/25 15:56 PHORAL [id number]) E-signed By Blake Owusu, PT Subjective/History History History This is the initial PT Lymphedema/Wound Care eval for Amos Graham, 69 yowm who presents with c/o B LE increased edema with intermittent chronic open wounds x ~ 5-6 mos. He reports increased pain in B LE along with significant edema with any prolonged dependent positioning. He reports minimal tenderness to palpation , except when he has open sores which often result from blisters. 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 Subjective Subjective Pt reports pain in B lower legs 02/16 this date. Severe blanchable erythema noted to B lower legs with lipdermatosclerosis beginning and significant hemosiderin staining. 3+ pitting edema to B feet with 2 + pitting edema throughout the lower legs B. No current open wounds noted this date, but multiple areas of recently healed skin are present. Pt reports he has compression garments that he purchased, but has increasing difficulty with donning them and doesn't wear them often due to this reason. LE measurements: R LE: Ankle= 29.1 cm, Calf= 38.3 cm, Length (knee to heel)= 51.0 cm L LE: Ankle= 30.0 cm, Calf= 39.4 cm, Length (knee to heel)= 51.0 cm Lymphedema Eval Classification of Lymphedema Secondary Lymphedema Yes: CVI Stemmer's sign Stemmer's Sign yes Stage of Lymphedema Lymphedema stages Stage II (Pitting edema, increased fibrosis w/ decreased pitting) Skin Changes Dry Skin Yes Taut, Shiny Skin Yes Hyperkeratosis Yes Redness Yes Wounds Yes Brittle Uneven Nails Yes Discoloration of Yes Skin Other Changes Yes Pain Scale Pain Scale (0-10) 8 Affected Extremities Areas Affected by Right Lower Extremity,Left Lower Extremity Lymphedema/Edema Manual Lymphatic Drainage Treatment Area MLD Treatment Area Right Lower Extremity,Left Lower Extremity Wound Problems/Impairments Impairments Problems/ Palpation Tenderness,Impaired Walking,Impaired Standing Impairmments ,Impaired Dressing,Impaired Household Care,Impaired Recreational Activities,Increased Edema,Lymphedema Present,Wound Care Needs,Subjective C/O Pain,Impaired Self Care/Self Management Prognosis Rehab Potential Good Comment Skilled therapy is indicated to reduce overall edema burden and instruct patient on independent management of his condition in order to improve pt QOL. Clinical Impression Consistent with Yes Diagnosis Consistent with Also Additional details: I89.0 Lymphedema in B LE Short Term Goals Number of Weeks 2 Decrease Edema Yes: 2+ pitting edema throughout B lower legs Decrease Subjective Yes: 12/17 B LE C/O Pain Decrease Girth Yes: B LE total by 3 cm ea Measurments by (cm) Tube Inspector Goals Number of Weeks 4 Decrease Edema Yes: 1+ pitting edema to B lower legs Decrease Subjective Yes: 10/17 B LE C/O Pain Patient to be Ind w/ Yes Donning/[place] Compression Garments Decrease Girth Yes: B LE total by 5 cm ea Measurments by (cm) Outpatient Therapy Plan of Care Treatment Plan May Include Therapeutic Exercise Yes Including Home Exercise Program Manual Therapy Yes Techniques Neuromuscular Re- Yes education Therapeutic Yes Activities to Return to Previous Functional/Work Level ADL/Self Care Yes Education Orthotics/Bracing/ Yes Splinting Manual Lymphatic Yes Drainage Eval/Re-Eval Yes Frequency Times per week 2 Duration Number of Weeks 4 Addendums This patient is a No candidate for social or vocational rehab ? Patient/Guardian Yes verbally acknowledges understanding of treatment program and consents to further treatment? Patient/Guardian Yes verbally acknowledges understanding of diagnosis, prognosis and goals for treatment? Eval Complexity PT Charges 72802 - High Complexity PHYSICIAN CERTIFICATION: I certify the specified therapy services for Amos Graham are required, authorized, and reviewed every 30 days.
== END 2025-02-03 23:59 | disposition home or self-care (01) ==
LOC: PT 13:57
PROVIDERS: PCP Family Medicine; Visit Provider Nurse Practitioner Family
DX: L97.919 Non-pressure chronic ulcer of unspecified part of right lower leg with unspecified severity (principal); I89.0 Lymphedema, not elsewhere classified
CPT/HCPCS: 97163

== ENCOUNTER 2025-02-04 14:58 | Outpatient (CLI) | payer MEDICARE, SELFPAY ==
--- OUTSIDE RECORDS SUMMARY | 2025-02-05 11:10 | XMS_ITS | Clinical Summary ---
Author Organization [facility] Address [facility] [place] [address] Care Team Providers Care Skid Machine Operator Name Role Phone Pcp, Leeann Primary Care Provider [phone] Source Comments This information has been disclosed [...] therelease of HIV test results or diagnoses. [id number] Allergies Active Allergy Reactions Criticality Noted [...] 21 Insurance BLUE MEDICARE ADVANTAGE Care Teams Skid Machine Operator Relationship Specialty Start Date End Date Pcp, No [address] [place], [place] [id number] PCP - General 12/25/23
--- OUTSIDE RECORDS SUMMARY | 2025-02-05 11:10 | XMS_ITS | Encounter Summary ---
Author Organization [place] [address] Care Team Providers Care Dry Cleaning Counter Clerk Name Role Phone Jeanette Sushil Mick Primary Care Provider [phone] Temi Isabel APRN Primary Care Provider [phone] Reena Benson RN Unavailable Unavailable Helder Yung MD Primary Care Provider [phone] Temi Isabel APRN Primary Care Provider [phone] Gaye Stern MD Primary Care Provi sonal Unavailable Rene Caruso MD Primary Care Provider [phone] Encounter Details Date Type Department Care Team (Late st Contact Info) Description 11/06/2008 Orders Only [facility] [place] [address] [place] [address] Perico Sequeira MD [address] [place] [address] Social History Tobacco Use Types Packs/Day [...] 1:45 PM EST Office Visit [facility] [place] [address] [place] [address] Jona Chau MD [address] [place] [address] 11/07/2025 1:30 PM EDT Office Visit [facility] [address] [facility] [address] [place] [address] 11/07/2025 2:00 PM EDT Office Visit [facility] [address] [facility] [address] [place] [address] Funmi Aldrich, MARCELO [address] [place], [place] [id number] documented as of this encounter Procedures Procedure [...] a practice prior to that practice using [facility] for Medical Records. Performing Provider: Perico [...] documented as of this encounter Care Teams Dry Cleaning Counter Clerk Relationship Specialty Start Date End Date Sushil Reid [address] [facility] [address] [place] [address] PCP - General 05/05/10 02/26/17 Temi Isabel APRN [address] [facility] [place] [phone] PCP - General Nurse Practitioner-Family 02/27/1707/10 Helder Yung MD [address] [place] [address] [place] [address] PCP - General Family Medicine 07/23/20 08/10/20 Temi Isabel APRN [address] [place] [address] [place] [address] PCP - General Nurse Practitioner-[facility] 08/11/2002/07 Gaye Stern MD [address] [place] [address] [place] [address] PCP - General Family Medicine 04/26/22 10/03/23 Rene Caruso MD [facility] [address] [place] [address] PCP - General Family Medicine 10/05/23 Reena Benson, RN Wardrobe Consultant Registered Nurse 10/31/19 12/31/19 documented as of this encounter
--- OUTSIDE RECORDS SUMMARY | 2025-02-05 11:10 | XMS_ITS | Encounter Summary ---
Author Organization [place] [address] Care Team Providers Care Out Of School Hours Care Worker Name Role Phone Rene Caruso MD Primary Care Provider [phone] Encounter Details Date Type Department Care Team (Late st Contact Info) Description 01/10/2025 Orders Only [facility] [address] [facility] [address] [place] [address] Jorden Cotton MD [address] [place], [place] [phone] Vector Remote Device Social History Tobacco Use Types Packs/Day Years Used Date Smoking Tobacco: Former Cigarettes 1.5 15 0 07/10/1984 - 07/10/1999 Smokeless Tobacco: Never Alcohol Use Standard Drinks/Week Comments Yes 12 (1 standard drink = 0.6 oz pu re alcohol) couple beers daily [facility] Utilities Answer Date Recorded In the past 12 months has theDrop, gas, oil, or water [employer] (?) threatened to shut off services in your home? No 10/01/2023 Overall Financial Resource Strain (CARDIA) Answe r Date Recorded How hard is it for you to pa y for the very basics like food, housing, medical care, and heating? Not hard at all 10/01/2023 PHQ-2 Answer Date Recorded PHQ-2 Total Score 0 10/01/2023 [facility] [place] of Occupat ional Health - Occupational Stress [...] Transportation (Non-Medical) No 10/31/2019 [facility] IP Transportation Answer D ate Recorded [...] 1:45 PM EST Office Visit SEP H[facility]V [address] [address] Jona Chau MD [address] [place] [address] 11/07/2025 1:30 PM EDT Office Visit [facility] [address] [place] [address] 11/07/2025 2:00 PM EDT Office Visit [facility] [address] [place] [address] Funmi Aldrich APRN [address] [place] [phone] documented as of this encounter Goals Goal [...] Procedure Name Priority Date/Time Associated Diagnosis Comments IL REM INTERROG ICPMS <30 D PHYS/QHP Routine 01/10/2025 12:00 AM EDT Vector Remote Device documented in this encounter Results * VECTOR REMOTE HEART FAILURE DEVICE (01/10/2025 12:00 AM EDT) 01/10/2025 Narrative [facility] - 01/10/2025 12:00 AM EDT Stable trend. us Jorden Cotton MD [facility] CARDIAC CATH ORDERAB LES Final Result Performing Organization Address City/State/[facility] Co de Phone Number [facility] 1 [place] [address] documented in this encounter Visit Diagnoses Diagnosis Vector Remote Device documented in this encounter Additional Health Concerns Assessment Noted Time A fall risk assessment has been complete d for the patient 11/30/2023 2:14 PM EDT documented as of this encounter Care Teams Out Of School Hours Care Worker Relationship Specialty Start Date End Date Rene Caruso MD [address] [place] [address] [address] [facility] [place] [address] PCP - General Family Medicine 10/05/23 documented as of this encounter
--- OUTSIDE RECORDS SUMMARY | 2025-02-05 11:10 | XMS_ITS | Encounter Summary ---
Author Organization [place] [address] Care Team Providers Care Glaze Carrier Name Role Phone Sushil Reid Mick Primary Care Provider [phone] Temi Isabel APRN Primary Care Provider [phone] Reena Benson RN Unavailable Unavailable Helder Yung MD Primary Care Provider [phone] Temi Isabel APRN Primary Care Provider [phone] Gaye Stern MD Primary Care Provi sonal Unavailable Rene Caruso MD Primary Care Provider [phone] Encounter Details Date Type Department Care Team (Late st Contact Info) Description 10/27/2009 Orders Only SEP H[facility] [place] [place] [address] Scottie Elkins MD Social History [...] 1:45 PM EST [place] [address] Jona Chau MD [address] [place] [address] 11/07/2025 1:30 PM EDT Office Visit [facility] [address] [facility] [address] [place] [address] 11/07/2025 2:00 PM EDT Office Visit [facility] [address] [facility] [address] [place] [address] Funmi Aldrich APRN [address] [place] [address] documented as of this encounter [...] a practice prior to that practice using [facility] for Medical Records. Performing Provider: Scottie Elkins [...] documented as of this encounter Care Teams Glaze Carrier Relationship Specialty Start Date End Date Sushil Reid [address] [facility] [address] [place] [address] PCP - General 05/05/10 02/26/17 Temi Isabel APRN [employer] [place] [address] PCP - General Nurse Practitioner-Family 02/27/1707/10 Helder Yung MD [address] [place] [address] [place] [address] PCP - General Family Medicine 07/23/20 08/10/20 Temi Isabel APRN [address] [place] [address] [place] [address] PCP - General Nurse Practitioner-Family 08/11/2002/07 Gaye Stern MD [address] [place] [address] [place] [address] PCP - General Family Medicine 04/26/22 10/03/23 Rene Caruso MD [facility] [address] [place] [address] PCP - General Family Medicine 10/05/23 Reena Benson, SHA Speech Language Pathologist Assistant Registered Nurse 10/31/19 12/31/19 documented as of this encounter
--- OUTSIDE RECORDS SUMMARY | 2025-02-05 11:11 | XMS_ITS | Encounter Summary ---
Author Organization [place] [address] Care Team Providers Care Industrial Electrical Technician Name Role Phone Rene Caruso MD Primary Care Provider [phone] Encounter Details Date Type Department Care Team (Late st Contact Info) Description 12/10/2024 Orders Only [facility] [address] [facility] [address] [place] [address] Jorden Cotton MD [address] [place], [place] [phone] Vector Remote Device Social History Tobacco Use Types Packs/Day Years Used Date Smoking Tobacco: Former Cigarettes 1.5 15 0 07/10/1984 - 07/10/1999 Smokeless Tobacco: Never Alcohol Use Standard Drinks/Week Comments Yes 12 (1 standard drink = 0.6 oz pu re alcohol) couple beers daily [facility] Utilities Answer Date Recorded In the past 12 months has [employer], gas, oil, or water [employer] threatened to shut off services in your home? No 10/01/2023 Overall Financial Resource Strain (CARDIA) Answe r Date Recorded How hard is it for you to pa y for the very basics like food, housing, medical care, and heating? Not hard at all 10/01/2023 PHQ-2 Answer Date Recorded PHQ-2 Total Score 0 10/01/2023 [facility] [place] of Occupat ional Health - Occupational Stress [...] 10/31/2019 Lack of Transportation (Non-Medical) No 10/31/2019 [facility] IP Transportation Answer D ate Recorded [...] 1:45 PM EST Office Visit SEP H[facility]V [address] [address] Jona Chau MD [address] [place] [address] 11/07/2025 1:30 PM EDT Office Visit [facility] [address] [place] [address] 11/07/2025 2:00 PM EDT Office Visit [facility] [address] [place] [address] Funmi Aldrich APRN [address] [place] [phone] documented as of this encounter Goals Goal [...] DEVICE (12/10/2024 12:00 AM EDT) 12/10/2024 Narrative [facility] - 12/10/2024 12:00 AM EDT Stable trend. us Jorden Cotton MD [facility] CARDIAC CATH ORDERAB LES Final Result Performing Organization Address City/State/[facility] Co de Phone Number [facility] 1 [place] [address] documented in this encounter Visit Diagnoses Diagnosis Vector Remote Device documented in this encounter Additional Health Concerns Assessment Noted Time A fall risk assessment has been complete d for the patient 11/30/2023 2:14 PM EDT documented as of this encounter Care Teams Industrial Electrical Technician Relationship Specialty Start Date End Date Rene Caruso MD [address] [place] [address] [address] [facility] [address] PCP - General Family Medicine 10/05/23 documented as of this encounter
--- OUTSIDE RECORDS SUMMARY | 2025-02-05 11:11 | XMS_ITS | Encounter Summary ---
Author Organization [place] [address] Care Team Providers Care Automobile Spring Repairer Name Role Phone Gaye Stern MD Primary Care Provi Rene Sage MD Primary Care Provider +1 -[phone] Encounter Details Date Type Department Care Team (Late st Contact Info) Description 07/20/2021 Orders Only [facility] [address] [facility] [address] [place] [address] Jorden Cotton MD [address] [place] [address] Social History Tobacco Use Types Packs/Day Years [...] Assessment Author No 08/11/2020 1:05 PM EST Penyn Stearns MA documented as of this encounter [...] 1:45 PM EST Office Visit [facility] [address] [address] Jona Chau MD [address] [place] [address] 11/07/2025 1:30 PM EDT Office Visit [facility] [address] [place] [address] [address] [place] [address] 11/07/2025 2:00 PM EDT Office Visit [facility] [address] [place] [address] [address] [place] [address] Funmi Aldrich APRN [address] [place] [address] documented as of this encounter Goals Goal [...] PM EST) 07/20/2021 9:26 PM EST Narrative [facility] - 07/23/2021 3:49 PM EST Per Vector: CLINIC REQUESTED: No significant episodes. NSVT: 4.AT/AF [place]: 68.9%. Known AF, patient on AC. SCRIPT WRITER: 16.4%. Normal device function. 10.2 battery.- No sure who requested- no notes in Epic/paceart/ER or scheduled appointments. Alexandra Xiong RN us Jorden Cotton MD [facility] CARDIAC CATH ORDERAB LES Final Result [facility] 1 [place], [place] [id number] documented in this encounter Visit Diagnoses Not on filedocumented in this encounter Care Teams Automobile Spring Repairer Relationship Specialty Start Date End Date Gaye Stern MD PCP - General Family Medicine 04/26/22 10/03/23 Rene Caruso MD [address] [facility] [address] [facility] [address] PCP - General Family Medicine 10/05/23 documented as of this encounter
--- OUTSIDE RECORDS SUMMARY | 2025-02-05 11:11 | XMS_ITS | Encounter Summary ---
Author Organization [place] [address] Care Team Providers Care Ballpoint Pens Assembler Name Role Phone Rene Caruso MD Primary Care Provider +1 [phone] Encounter Details Date Type Department Care Team (Latest Contact Info) Description 12/05/2024 Results Follow-Up [facility] [address] [facility] [address] [place] [address] Funmi Aldrich APRN 7[address] [place], [place] [id number] EC ECHOCARDIOGRAM COMPLETE W DOPPLER AND COLOR FLOW MAPPING Social History Tobacco Use Types Packs/Day Years Used Date Smoking Tobacco: Former Cigarettes 1.5 15 0 07/10/1984 - 07/10/1999 Smokeless Tobacco: Never Alcohol Use Standard Drinks/Week Comments Yes 12 (1 standard drink = 0.6 oz pu re alcohol) couple beers daily [facility] Utilities Answer Date Recorded In the past 12 months has [employer], gas, oil, or water [employer] threatened to shut off services in your home? No 10/01/2023 Overall Financial Resource Strain (CARDIA) Answe r Date Recorded How hard is it for you to pa y for the very basics like food, housing, medical care, and heating? Not hard at all 10/01/2023 PHQ-2 Answer Date Recorded PHQ-2 Total Score 0 10/01/2023 [facility] [place] of Occupat ional Health - Occupational [...] 10/31/2019 Lack of Transportation (Non-Medical) No 10/31/2019 [facility] IP Transportation Answer D ate Recorded [...] PM EST Office Visit [facility] H[facility]V [address] [address] Jona Chau MD [address] [place] [address] 11/07/2025 1:30 PM EDT Office Visit [facility] [address] [place] [address] 11/07/2025 2:00 PM EDT Office Visit [facility] [address] [place] [address] Funmi Aldrich APRN [address] [place] [id number] documented as of this encounter Goals Goal [...] documented as of this encounter Care Teams Ballpoint Pens Assembler Relationship Specialty Start Date End Date Rene Caruso MD [facility] [address] [place] [address] PCP - General Family Medicine 10/05/23 documented as of this encounter
--- OUTSIDE RECORDS SUMMARY | 2025-02-05 11:11 | XMS_ITS | Clinical Summary ---
Author Organization [facility] Address [address] [place] [address] Care Team Providers Care Assembler Dc Field Ring Name Role Phone Scottie Reid MD Primary Care Provider [phone]- [phone] Immunizations Immunization Administration Dates Next Due Influenza, [...] 2006 UKY-Zoster Vaccines (1 of 2) 2006 [id number] Vaccine (1 - 20 24-25 season) 2024 [...] age to complete this topic Care Teams Assembler Dc Field Ring Relationship Specialty Start Date End Date Scottie Reid MD [address] [place] [address] PCP - General 11/20/20
--- OUTSIDE RECORDS SUMMARY | 2025-02-05 11:11 | XMS_ITS | Encounter Summary ---
Author Organization [place] [address] Care Team Providers Care University Relations Vice President Name Role Phone Temi Isabel MARCELO Primary Care Provider [phone] [phone] Gaye Stern MD Primary Care Provi Rene Sage MD Primary Care Provider +1 -[phone] Encounter Details Date Type Department Care Team (Late st Contact Info) Description 02/08/2021 Orders Only [facility]g [address] [facility] [address] [place] [address] Jorden Cotton MD [address] [place], [place] [phone] Social History Tobacco Use Types Packs/Day Years [...] 1:45 PM EST Office Visit [facility] [address] [place] [address] Jona Chau MD [address] [place] [address] 11/07/2025 1:30 PM EDT Office Visit [facility] [address] [facility] [address] [place] [address] 11/07/2025 2:00 PM EDT Office Visit [facility] [address] [facility] [address] [place] [address] Funmi Aldrich APRN [address] [place] [address] documented as of this encounter [...] v/uMark Mobley RN/CDS. us Jorden Cotton MD [facility] CARDIAC CATH ORDERAB LES Final Result [facility] 1 [place] [address] documented in this encounter Visit Diagnoses Not on filedocumented in this encounter Care Teams University Relations Vice President Relationship Specialty Start Date End Date Temi Isabel APRN [address] [facility] [place] [phone] PCP - General Nurse Practitioner-Family 08/11/2002/07 Gaye Stern MD [address] [place] [address] PCP - General Family Medicine 04/26/22 10/03/23 Rene Caruso MD [facility] [address] [place] [phone] PCP - General Family Medicine 10/05/23 documented as of this encounter
--- OUTSIDE RECORDS SUMMARY | 2025-02-05 11:11 | XMS_ITS | Encounter Summary ---
Author Organization [place] [address] Care Team Providers Care Product Line Manager Name Role Phone Temi Isabel APRN Primary Care Provider [phone] [phone] Reena Benson RN Unavailable Unavailable Helder Yung MD Primary Care Provider [phone] Temi Isabel APRN Primary Care Provider [phone] Gaye Stern MD Primary Care Provi sonal Unavailable Rene Caruso MD Primary Care Provider [phone] -[phone] Encounter Details Date Type Department Care Team (Late st Contact Info) Description 10/22/2019 Orders Only [facility] Edg 711 [facility] [address] [place] [address] Jorden Cotton MD [address]11 [place], [place] [phone] Social History Tobacco Use Types Packs/Day Years [...] 1:45 PM EST Office Visit [facility]P H&V [address] [address] Jona Chau MD [address] [place] [address] 11/07/2025 1:30 PM EDT Office Visit [facility] [address] [place] [address] 11/07/2025 2:00 PM EDT Office Visit [facility] [address] [place] [address] Funmi Aldrich APRN [address] [place], [place] [phone] documented as of this encounter Goals Goal [...] EDT) 10/22/2019 12:1 5 PM EDT Narrative [facility] - 10/22/2019 9:54 AM EDT [facility] transmission for POD #1 check. Karly Barrera, RN, BSN us Joredn Cotton MD [facility] CARDIAC CATH ORDERAB LES Final Result [facility] 1 [place] [address] documented in this encounter Visit Diagnoses Not on filedocumented in this encounter Care Teams Product Line Manager Relationship Specialty Start Date End Date Temi Isabel APRN [address] [place] [address] [place] [address] PCP - General Nurse Practitioner-Family 02/27/1707/10 Helder Yung MD [address] [place] [address] [place] [address] PCP - General Family Medicine 07/23/20 08/10/20 Temi Isabel APRN [address] [place] [address] [place] [address] PCP - General Nurse Practitioner-Family 08/11/2002/07 Gaye Stern MD [address] [place] [address] [place] [address] PCP - General Family Medicine 04/26/22 10/03/23 Rene Caruso MD [address] [place] [phone] PCP - General Family Medicine 10/05/23 Reena Benson, RN Valve Grinder Registered Nurse 10/31/19 12/31/19 documented as of this encounter
--- OUTSIDE RECORDS SUMMARY | 2025-02-05 11:11 | XMS_ITS | Clinical Summary ---
Author Organization [facility] Address [address] [place] [address] Care Team Providers Care Lean Six Sigma Senior Specialist Name Role Phone Alvarez Jaimes MD Unavailable [phone] Scottie Reid MD Primary Care Provider [phone] Allergies Active Allergy Reactions Criticality Noted Date [...] series) 12/08/2031 Medical Devices Implanted Type Area Deportation Officer Device Identifier Shelf Expiration Date Model / Serial / Lot Cervical Tissue 4.75 X 6.22mm Implanted:Qty : 1 on 01/24/2008 at [facility] Spine Cervical * [facility] [id number] / -[id number] Cervical Tissue 4.75 X 6.22mm Implanted:Qty : 1 on 01/24/2008 at [facility] Spine Cervical * [facility] [id number] / -[id number] Cervical Tissue 4.75 X 6.22mm Implanted:Qty : 1 on 01/24/2008 at [facility] Spine Cervical * [facility] [id number] / -[id number] Plate 48mm Implanted:Qty : 1 on 01/24/2008 at [facility] Spine Cervical * [employer] 911 [id number] / / Screw 14mm Implanted:Qty : 8 on 01/24/2008 at [facility] Spine Lumbar * [employer] 911 [id number] / / Venetie Ira+ Acp, 3 Level, 48mm - S1 Implanted:Qty : 1 on 08/06/2009 at [facility] N/A: Spine Cervical * USE JJ DEPU [id number] / / Screw Oversize 14mm - S1 Implanted:Qty : 8 on 08/06/2009 at [facility] N/A: Spine Cervical * USE J DEPU [id number] / / Insurance [employer] MEDICARE Advance Directives For more information, please contact: [phone] * Full Code (Latest Code Status on File) Date Activated Date Inactivated Comments 05/20/2022 2:32 PM Care Teams Lean Six Sigma Senior Specialist Relationship Specialty Start Date End Date Scottie Reid MD [address] [place] [id number] PCP - General Family Medicine 05/13/22 Alvarez Jaimes MD [address] [place] [address] Orthopedic Surgery 05/10/22
--- OUTSIDE RECORDS SUMMARY | 2025-02-05 11:11 | XMS_ITS | Encounter Summary ---
Author Organization [place] [address] Care Team Providers Care Palliative Care Coordinator Name Role Phone Temi Isabel APRN Primary Care Provider [phone] [phone] Reena Benson RN Unavailable Unavailable Helder Yung MD Primary Care Provider [phone] Temi Isabel APRN Primary Care Provider [phone] [phone] Gaye Stern MD Primary Care Provi sonal Unavailable Rene Caruso MD Primary Care Provider +1 -[phone] Encounter Details Date Type Department Care Team (Late st Contact Info) Description 10/27/2019 Orders Only [facility] Arrhythmia Ctr Edg [address] [facility] [address] [place] [address] Jorden Cotton MD [address]11 [place] [address] Social History Tobacco Use Types Packs/Day Years [...] 1:45 PM EST [place] [address] Jona Chau MD [address] [place] [address] 11/07/2025 1:30 PM EDT Office Visit [facility] [address] [facility] [address] [place] [address] 11/07/2025 2:00 PM EDT Office Visit [facility]tr [facility] [address] [facility] [address] [place] [address] Funmi Aldrich APRN [address] [place] [address] documented as of this encounter [...] PM EDT) 10/27/2019 1:33 PM EDT Narrative [facility] - 10/28/2019 8:46 AM EDT [facility] from [facility] notes Normal Device function, battery , leads function WNL, 1 AT/AF events 6 min. Alexandra Xiong RN us Jorden Cotton MD [facility] CARDIAC CATH ORDERAB LES Final Result [facility] 1 [place] [address] documented in this encounter Visit Diagnoses Not on filedocumented in this encounter Care Teams Palliative Care Coordinator Relationship Specialty Start Date End Date Temi Isabel APRN [address] [place] [phone] PCP - General Nurse Practitioner-Family 02/27/1707/10 Helder Yung MD [address] [place] [address] [place] [address] PCP - General Family Medicine 07/23/20 08/10/20 Temi Isabel APRN [address] [place] [address] [place] [address] PCP - General Nurse Practitioner-Family 08/11/2002/07 Gaye Stern MD [address] [place] [address] [place] [address] PCP - General Family Medicine 04/26/22 10/03/23 Rene Caruso MD [facility] [address] [place] [place] [address] PCP - General Family Medicine 10/05/23 Reena Benson, SHA Paint Stripper Registered Nurse 10/31/19 12/31/19 documented as of this encounter
--- OUTSIDE RECORDS SUMMARY | 2025-02-05 11:11 | XMS_ITS | Encounter Summary ---
Author Organization [place] [address] Care Team Providers Care Pulp Operator Name Role Phone Rene Caruso MD Primary Care Provider [phone] [phone] Encounter Details Date Type Department Care Team (Late st Contact Info) Description 01/09/2025 Orders Only [facility] Arrhythmia Ctr Edg 7[address] [facility] [address] [place] [address] Jorden Cotton MD [address] [place], [place] [phone] Vector Remote Device Social History Tobacco Use Types Packs/Day Years Used Date Smoking Tobacco: Former Cigarettes 1.5 15 0 07/10/1984 - 07/10/1999 Smokeless Tobacco: Never Alcohol Use Standard Drinks/Week Comments Yes 12 (1 standard drink = 0.6 oz pu re alcohol) couple beers daily [facility] Utilities Answer Date Recorded In the past 12 months has [employer], gas, oil, or water [employer] threatened to shut off services in your home? No 10/01/2023 Overall Financial Resource Strain (CARDIA) Answe r Date Recorded How hard is it for you to pa y for the very basics like food, housing, medical care, and heating? Not hard at all 10/01/2023 PHQ-2 Answer Date Recorded PHQ-2 Total Score 0 10/01/2023 [facility] of Occupat ional Health - Occupational Stress [...] 10/31/2019 Lack of Transportation (Non-Medical) No 10/31/2019 [facility] IP Transportation [...] 1:45 PM EST Office Visit SEP H&V [address] [address] Jona Chau MD [address] [place] [address] 11/07/2025 1:30 PM EDT Office Visit [facility] [address] [place] [address] 11/07/2025 2:00 PM EDT Office Visit [facility] [address] [place] [address] Funmi Aldrich APRN [address] [place] [phone] documented as of this encounter Goals Goal [...] Procedure Name Priority Date/Time Associated Diagnosis Comments [place] INTERROGATION EVAL REMOTE </90 D 07/11/NET TECHNICAL ARCHITECT LD DFB Routine 01/09/2025 12:00 AM EDT Vector Remote Device documented in this encounter Results * VECTOR REMOTE DEVICE (01/09/2025 12:00 AM EDT) 01/09/2025 Narrative [facility] - 01/09/2025 12:00 AM EDT No significant episodes. Atrial Episodes: 2. Longest atrial episode: . Patient on AC. Mode: VVIR. LOGISTICS PLANNING MANAGER: 98%. Normal device function. Device Advisory. us Jorden Cotton MD [facility] CARDIAC CATH ORDERAB LES Final Result [facility] 1 [place] [address] documented in this encounter Visit Diagnoses Diagnosis Vector Remote Device documented in this encounter Additional Health Concerns Assessment Noted Time A fall risk assessment has been complete d for the patient 11/30/2023 2:14 PM EDT documented as of this encounter Care Teams Pulp Operator Relationship Specialty Start Date End Date Rene Caruso MD [address] [place] [address] [address] [place] [address] PCP - General Family Medicine 10/05/23 documented as of this encounter
--- OUTSIDE RECORDS SUMMARY | 2025-02-05 11:12 | XMS_ITS ---
Author Organization Unknown [facility] Start Date Provider Encounter for Check-up [id number] [facility]
--- OUTSIDE RECORDS SUMMARY | 2025-02-05 11:13 | XMS_ITS | Clinical Summary ---
Author Organization [facility] Address [address] [place] [address] Phone Care Team Providers Care Needle Maker Name Role Phone Ya Peralta MD [phone] Conditions or Problems Problem Name Problem Code Onset Date Status Entry Date Provider Comment Standard Description Annotate SPONDYLOSIS, LUMBAR 520448721 (SNOMED CT) 03/08 Active 03/08 Ya Peralta MD Lumbosacral spondylosis LUMBAR RADICULOPATHY 441724214 (SNOMED CT) 03/03 Active 03/03 Teri Brito MA Lumbar radiculopathy SPINAL STENOSIS 20374999 (SNOMED CT) 03/03 Active 03/03 Teri Brito MA Spinal stenosis Medications Medication Instructions Start Date Stop Date Generic Name [facility] Provider ELIQUIS 5 MG TABS apixaban 22553408972 L joan Brito MA METOPROLOL SUCCINATE ER 100 MG [id number] metoprolol succinate 38348446444 Teri Brito MA LOSARTAN POTASSIUM 25 MG TABS losartan 88707157943 Teri Brito MA OXYCODONE HCL 5 MG TABS oxycodone 69541775823 Teri Brito MA TORSEMIDE 20 MG TABS torsemide 78211920736 Teri Brito MA METHOCARBAMOL 500 MG TABS methocarbamol 09016995579 Teri Brito MA ATORVASTATIN CALCIUM 40 MG TABS atorvastatin 39098761257 Teri Brito MA Medications Administered No information [...]
--- OUTSIDE RECORDS SUMMARY | 2025-02-05 11:14 | XMS_ITS | Continuity of Care Document ---
Author Organization [facility] BUSINESS OFFICE Address [facility]0 [facility] [address] [place] [address] Care Team Providers Care Manager Digital Name Role Phone Yuli Caruso MD Primary Care Provider [phone] Encounters Date Type Department Care Team Description 01/10/2025 Orders Only [facility] [address] [place] [address] [place] [phone] Radha Cotton MD Vector Remote Device 01/09/2025 Orders Only [facility] [address] [place] [address] [place] [phone] Radha Cotton MD Vector Remote Device 12/10/2024 Orders Only [facility] [address] [place] [address] [place] [phone] Radha Cotton MD Vector Remote Device 12/05/2024 Results Follow-Up [facility] [address] [facility] [address] [place] [phone] Funmi Aldrich APRN EC ECHOCARDIOGRAM COMPLETE W DOPPLER AND COLOR FLOW MAPPING 12/05/2024 2:00 PM EDT Office Visit [facility] [address] [place] [phone] René Brown MD Status post total hip replacement, right (Primary Dx) 12/03/2024 9:15 AM EDT - 12/03/2024 11:59 PM EDT Hospital Encounter [facility] [address] [place] [address] René Nicholas PA-C Status post total hip replacement, right Discharge Disposition: Home or Self Care 12/03/2024 9:15 AM EDT - 12/03/2024 11:59 PM EDT Hospital Encounter [facility] [address] [place] [address] René Nicholas PA-C Discharge Disposition: Home or Self Care 12/03/2024 9:15 AM EDT - 12/03/2024 11:59 PM EDT Hospital Encounter [facility] ECHO [address] [place] [address] Funmi Aldrich APRN [place] (ventricular tachycardia) ([facility]); Healthcare maintenance; Shortness of breath Discharge Disposition: Home or Self Care 11/25/2024 Telephone [facility] [address] [place] [address] Jose Solorio MD Other (RF Gabapentin) 11/25/2024 [facility] [employer] [facility] [employer] [address] [place] [address] René Brown MD Other (schedule f/p) 11/25/2024 Telephone [facility] [address] [place] [address] [address] [place] [address] Radha Cotton MD Medication Refill (metoprolol succinate ER (TOPROL-XL) 100 mg Oral Tablet Sustained Release 24 hr) 11/21/2024 Orders Only [facility] [address] [place] [address] [address] [place] [address] Radha Cotton MD Vector Remote Device 11/14/2024 1:30 PM EDT Ancillary Procedure [address] [address] René Nicholas PA-C Status post total hip replacement, right 11/14/2024 1:15 PM EDT Office Visit [address] [address] René Nicholas PA-C Status post total hip replacement, right (Primary Dx) 11/11/2024 Telephone Structural Hrt/Valve [address] [place] [address] [address] [place] [address] Jacque Ahn, SHA Other 11/07/2024 Orders Only [facility] [address] [place] [address] [address] [place] [phone] Radha Cotton MD Vector Remote Device 11/07/2024 2:30 PM EDT Office Visit [facility] [address] [place] [address] [address] [place] [phone] Funmi Aldrich APRN Healthcare maintenance (Primary Dx); VT (ventricular tachycardia) ([facility]); Shortness of breath 11/07/2024 2:00 PM EDT Office Visit [facility] [address] [place] [address] [address] [place] [phone] Dejon Mcqueen MA Ischemic cardiomyopathy (Primary Dx); Implantable defibrillator reprogramming/check; ICD (implantable cardioverter-defibril lator), single, in situ 10/23/2024 [place] [address] Jona Chau MD Cardiology Clearance 10/23/2024 [place] [address] Jona Chau MD Cardiology Clearance (([facility])) 10/18/2024 Telephone [facility] [address] [phone] Funmi Aldrich APRN Reschedule 10/07/2024 Orders Only [facility] [address] [place] [address] [place] [phone] Radha Cotton MD Vector Remote Device 10/06/2024 Orders Only [facility] [address] [place] [phone] Radha Cotton MD Vector Remote Device 10/02/2024 Refill [facility] [address] [address] Jona Chau MD Medication Refill 09/24/2024 Telephone [facility] [address] [place] [address] Michela Castañeda, RT Follow-up 09/23/2024 Travel 09/23/2024 12:00 PM EDT Anesthesia Event [facility] [address] [place] [phone] Jose Amador, Howard Nichole, 09/23/2024 11:30 AM EDT - 09/23/2024 11:59 PM EDT Hospital Encounter [facility] [address] [place] [phone] Dejon Capone MD Costantini, Oren M, Margarita Hyatt, DAMIAN Non-pressure chronic ulcer of right lower leg, unspecified ulcer stage (HCC); Coronary artery disease due to calcified coronary lesion Discharge Disposition: Home or Self Care 09/19/2024 12:20 PM EDT - 09/19/2024 11:59 PM EDT Hospital En[facility] [phone] PAD (peripheral artery disease); Coronary artery disease due to calcified coronary lesion Discharge Disposition: Home or Self Care 09/19/2024 11:15 AM EDT Office Visit [facility] [address] [place] [address] Jyothi Decker PA-C PAD (peripheral artery disease) (Primary Dx) 09/11/2024 Orders Only [facility] [place] [address] [place] [address] Michela Castañeda, RT PAD (peripheral artery disease) (Primary Dx); Coronary artery disease due to calcified coronary lesion 09/10/2024 Telephone [facility] [place] [address] [place], [place] [phone] Jona Chau MD Cardiology Clearance 09/05/2024 Orders Only [facility] [address] [facility] [address] [place] [address] Radha Cotton MD Vector Remote Device 08/23/2024 Telephone [facility] [place] [address] [place] [address] Michela Castañeda, RT Confirmation 08/18/2024 Refill [facility] [place] [address] [place] [phone] Jona Chau MD Medication Refill 08/07/2024 Telephone [facility] [place] [address] [place] [address] Michela Castañeda, RT Schedule Appointment 08/05/2024 Orders Only [facility] [address] [facility] [address] [place] [address] Radha Cotton MD Vector Remote Device 08/01/2024 2:15 PM EST Office Visit [facility] [address] [place] [address] Alvarez Alejo MD Lumbar spondylosis (Primary Dx) 07/22/2024 Telephone [facility] [place] [address] [place] [address] Michela Castañeda, RT Schedule Appointment 07/19/2024 10:30 AM EST - 07/19/2024 11:59 PM EST Hospital Encounter [facility] [place] [address] Jose Solorio MD Lumbar foraminal stenosis; Lumbar spondylosis; Degeneration of intervertebral disc of lumbar region with discogenic back pain; Lumbar pain; Myofascial pain; SI (sacroiliac) joint dysfunction Discharge Disposition: Home or Self Care 07/18/2024 [facility] [address] [place] [phone] Na Mathis, [facility] 07/17/2024 11:00 AM EST Office [facility] [address] [facility] [address] [place] [address] Alvarez Alejo MD Lumbar spondylosis (Primary Dx) 07/16/2024 Orders Only [facility] [place] [address] [place] [address] Michlea Castañeda, RT Non-pressure chronic ulcer of right lower leg, unspecified ulcer stage (HCC) (Primary Dx) 07/09/2024 2:30 PM EST Ancillary Procedure [facility] [address] [place] [address] René Nicholas, PA-C Status post total hip replacement, right 07/09/2024 2:15 PM EST Office Visit [facility] [address] [place] [address] René Nicholas, PA-C Status post total hip replacement, right (Primary Dx) 07/06/2024 [place] [address] Vernell Bejarano APRN Medication Refill 07/05/2024 Orders Only [facility] [address] [place], [place] [phone] Radha Cotton MD Vector Remote Device 07/05/2024 Telephone [facility] [address] [place] [phone] Temi Timmons MA Results 07/04/2024 Orders Only [facility] [address] [place] [phone] Radha Cotton MD Vector Remote Device 07/02/2024 [place] [address] Jona Chau MD Medication Refill 06/27/2024 8:45 AM EST [facility] [address] [place] [address] Alvarez Alejo MD Lumbar spondylosis (Primary Dx); Lumbar foraminal stenosis; Degeneration of intervertebral disc of lumbar region with discogenic back pain 06/26/2024 Orders Only [facility] [address] [facility] [address] [place] [address] Ceci Simms MA Lumbar foraminal stenosis (Primary [...] 06/25/2024 Telephone [facility] [place] 49[address] [facility] [address] [place] [address] Theresa Goff, Box Stacker New Patient 06/25/2024 Orders Only [facility] [address] [facility] [address] [place] [address] Ceci Simms MA Lumbar foraminal stenosis (Primary Dx); Lumbar spondylosis; Degeneration of intervertebral disc of lumbar region with discogenic back pain; Lumbar pain; Myofascial pain 06/25/2024 Telephone [facility] [address] [phone] Jose Solorio MD 06/13/2024 Travel 06/13/2024 2:15 PM EST Office Visit [facility] [place] [address] Jona Chau MD ASHD (arteriosclerotic heart disease) (Primary Dx) 06/12/2024 Telephone [facility] [address] [place] [address] Michela Castañeda RT Follow-up 06/12/2024 10:48 AM EST - 06/12/2024 11:59 PM EST Hospital Encounter [facility] E[facility] [address] [place] [address] Vernell Bejarano APRN Paroxysmal atrial fibrillation (HCC); Chronic systolic heart failure (HCC); Coronary artery disease involving [place] coronary artery of [place] heart with angina pectoris; Primary hypertension; Mitral valve disease; Hx of mitral valve replacement; PAD (peripheral artery disease); S/P CABG x 2; single chamber ICD Discharge Disposition: Home or Self Care 06/11/2024 Orders Only [facility] [address] [place] [address] Michela Castañeda, RT Non-pressure chronic ulcer of right lower leg, unspecified ulcer stage (HCC) (Primary Dx) 06/11/2024 3:00 PM EST Office Visit [facility] [address] [place] [address] Dejon Capone MD Leg swelling (Primary Dx) 06/11/2024 2:00 PM EST Clinical Support [facility] [address] [place] [address] Varicose veins of leg with edema, right (Primary Dx) 06/03/2024 Orders Only [facility] [address] [phone] Radha Cotton MD Vector Remote Device 05/24/2024 Refill [facility] [address] [address] Ceci Simms MA Medication Refill 05/24/2024 10:30 AM EST Office Visit [facility] [address] [address] Jose Solorio MD Lumbar foraminal stenosis (Primary Dx); Lumbar spondylosis; Degeneration of intervertebral disc of lumbar region with discogenic back pain; Lumbar pain; Myofascial pain; SI (sacroiliac) joint dysfunction; Pain in other specified joint; Low back pain, unspecified back pain laterality, unspecified chronicity, unspecified whether sciatica present; Postlaminectomy syndrome 05/03/2024 Orders Only [facility] [address]11 [facility] [address] [place] [phone] Radha Cotton MD Vector Remote Device 04/26/2024 Telephone [facility] [address] [place] [address] Arsen Kerr MD Missed Appointment (pt thought this appt was cancelled, he declined a r/s appt) 04/25/2024 Telephone [facility] [address] [place] [address] [place] [phone] Nicole Jacobsen (MDT ICD. Carelink monitor. ) 04/25/2024 9:30 AM EDT Office Visit [facility] [address] [facility] [address] [place], [place] [phone] René Perea MD SI (sacroiliac) joint dysfunction (Primary Dx) 04/22/2024 Telephone [facility] [address] [place] [address] Sofia Maciel MA Follow-up 04/19/2024 Telephone [facility] [address] [phone] Jona Chau MD Medication Refill 04/17/2024 1:30 PM EDT Office Visit [facility] [address] [place] [address] [place] [phone] Theodora Barrera RN Ischemic cardiomyopathy (Primary Dx); Chronic systolic heart failure (HCC); Cardiac arrest with ventricular fibrillation (HCC); ICD (implantable cardioverter-defibril lator), single, in situ; Paroxysmal atrial fibrillation (HCC); Implantable defibrillator reprogramming/check 04/17/2024 2:00 PM EDT Office Visit [facility] [address] [place] [address] [place] [phone] Radha Cotton MD Paroxysmal atrial fibrillation (HCC) (Primary Dx); ICD (implantable cardioverter-defibril lator), single, in situ 04/16/2024 1:30 PM EDT Office Visit [facility] [address] [place] [address] Dejon Capone MD Varicose veins of leg with edema, right (Primary Dx); Non-pressure chronic ulcer of right lower leg, unspecified ulcer stage (HCC); Varicose veins of leg with pain, right 04/12/2024 Telephone [facility] [address]11 [facility] [address] [place] [address] Evangelina Xiong RN Results (Carelink alert for shock delivered for VF @ 300 bpm) 04/11/2024 Orders Only [facility] 7[address] [facility] [address] [place] [address] Radha Cotton MD Vector Remote Device 04/05/2024 1:00 PM EDT Office Visit [facility] [address] [facility] [address] [place] [address] Theresa Corona PA SI (sacroiliac) joint dysfunction (Primary Dx); Sacroiliac joint pain; Sacroiliitis, not elsewhere classified; Chronic low back pain, unspecified back pain laterality, unspecified whether sciatica present 04/04/2024 Refill [facility] [place] [address] [place] [address] Jona Chau MD Medication Refill 04/02/2024 2:50 PM EDT Ancillary Procedure [facility] [address] [place] [address] René Brown MD Status post hip replacement, right 04/02/2024 2:30 PM EDT Office Visit [facility] [address] [place] [address] René Brown MD Status post hip replacement, right (Primary Dx); Chronic low back pain, unspecified back pain laterality, unspecified whether sciatica present 03/29/2024 1:54 PM EDT - 03/29/2024 11:59 PM EDT Hospital Encounter [facility] [place] [address] [place] [address] Arsen Kerr MD Non-pressure chronic [...] Orders Only [facility] [address] [place] [address] Radha Cotton MD Vector Remote Device 03/22/2024 Telephone [facility] [place] [address] [place] [address] Devaughn Paris MD Missed Appointment (Got caught in traffic. Rescheduled for 03/29) 03/21/2024 10:15 AM EDT Office Visit [facility] [address] [place] [address] René Perea MD DDD (degenerative disc disease), lumbar (Primary Dx); Sacroiliitis, not elsewhere classified 03/14/2024 2:15 PM EDT Ancillary Procedure [facility] [address] [address] Theresa Corona PA DDD (degenerative disc disease), lumbar 03/14/2024 2:00 PM EDT Office Visit [facility] [address] [address] Theresa Corona PA DDD (degenerative disc disease), lumbar (Primary Dx); Sacroiliac joint pain; SI (sacroiliac) joint dysfunction; Chronic low back pain, unspecified back pain laterality, unspecified whether sciatica present; Lumbar degenerative disc disease; Lumbar foraminal stenosis; Lumbar spondylosis; Lumbar radiculopathy; Lumbar pain; Myofascial pain 03/08/2024 3:13 PM EDT - 03/08/2024 11:59 PM EDT Hospital Encounter [facility] [place] [address] [place] [address] Devaughn Paris MD Edema of both lower legs due to peripheral venous insufficiency (Primary Dx); Venous stasis ulcer of left lower leg with edema of left lower leg (HCC); Non-pressure chronic ulcer of right lower leg with fat layer exposed (HCC); Non-pressure chronic ulcer of left lower leg, with fat layer exposed (HCC) Discharge Disposition: Home or Self Care 03/01/2024 Telephone [facility] [place] [address] [place] [address] Devaughn Paris MD Follow-up (Left VM asked pt to schedule apt with WC) 02/29/2024 [place] [address] René Nicholas PA-C 02/23/2024 2:45 [place] [address] René Nicholas PA-C DDD (degenerative disc disease), lumbar (Primary Dx); Status post hip replacement, right; Chronic left SI joint pain 02/16/2024 3:35 PM EDT - 02/16/2024 11:59 PM EDT Hospital Encounter [facility] [place] [address] [place] [address] Dejon Capone MD Non-pressure chronic ulcer of right lower leg with fat layer exposed (HCC) (Primary Dx); Non-pressure chronic ulcer of other part of left lower leg with fat layer exposed (HCC) Discharge Disposition: Home or Self Care 02/12/2024 7:59 AM EDT - 02/12/2024 11:59 PM EDT Hospital Encounter [facility] [place] [address] Dejon Capone MD Bilateral leg edema Discharge Disposition: Home or Self Care 02/09/2024 3:25 PM EDT - 02/09/2024 3:28 PM EDT Hospital Encounter [facility] [place] [address] [place] [address] Paroxysmal atrial fibrillation (HCC); Chronic systolic heart failure (HCC); Coronary artery disease involving [place] coronary artery of [place] heart with angina pectoris; Primary hypertension; Mitral valve disease; Hx of mitral valve replacement; PAD (peripheral artery disease); S/P CABG x 2; single chamber ICD; Bilateral leg edema Discharge Disposition: Home or Self Care 02/09/2024 3:29 PM EDT - 02/09/2024 11:59 PM EDT Hospital Encounter [facility] [place] [address] [place] [address] Dejon Capone MD Non-pressure chronic ulcer of right lower leg with fat layer exposed (HCC) (Primary Dx); Non-pressure chronic ulcer of other part of left lower leg with fat layer exposed (HCC); Edema of both lower legs due to peripheral venous insufficiency; Venous insufficiency Discharge Disposition: Home or Self Care 02/08/2024 3:20 [place] [address] René Nicholas PA-C Status post hip replacement, right 02/08/2024 4:00 [place] [address] René Nicholas PA-C Status post hip replacement, right (Primary Dx) 02/02/2024 2:00 PM EDT - 02/02/2024 11:59 PM EDT Hospital Encounter [facility] [place] [address] [place] [address] Devaughn Paris MD Non-pressure chronic ulcer of right lower leg with fat layer exposed (HCC) (Primary Dx); Non-pressure chronic ulcer of other part of left lower leg with fat layer exposed (HCC); Edema of both lower legs due to peripheral venous insufficiency Discharge Disposition: Home or Self Care 01/30/2024 Orders Only [facility] [address] [place] [address] Michela Castañeda RT Bilateral leg edema (Primary Dx) 01/30/2024 Telephone [facility] [address] [place] [address] Michela Castañeda RT Confirmation; Follow-up 01/29/2024 2:00 PM EDT Office Visit [facility] [place] [address] Vernell Bejarano APRN Paroxysmal atrial fibrillation (HCC) (Primary Dx); Chronic systolic heart failure (HCC); Coronary artery disease involving [place] coronary artery of [place] heart with angina pectoris; Primary hypertension; Mitral valve disease; Hx of mitral valve replacement; PAD (peripheral artery disease); S/P CABG x 2; single chamber ICD 01/28/2024 Travel 01/26/2024 3:30 PM EDT - 01/26/2024 11:59 PM EDT Hospital Encounter [facility] [place] [address] [place] [address] Devaughn Paris MD Non-pressure chronic ulcer of right lower leg with fat layer exposed (HCC) (Primary Dx); Non-pressure chronic ulcer of other part of left lower leg with fat layer exposed (HCC) Discharge Disposition: Home or Self Care 01/23/2024 Telephone [facility] [place] [address] [place] [address] Michela Castañeda, RT Schedule Appointment 01/23/2024 11:00 AM EDT Office Visit [facility] [place] [address] [place] [address] Dejon Capone MD Symptom of leg swelling (Primary Dx) 01/23/2024 9:00 AM EDT Office Visit [facility] [place] [address] [place] [address] Edema of both lower legs due to peripheral venous insufficiency (Primary Dx) 01/19/2024 2:00 PM EDT - 01/19/2024 11:59 PM EDT Hospital Encounter [facility] [address] [place] [address] Devaughn Paris MD Non-pressure chronic ulcer of right lower leg with fat layer exposed (HCC) (Primary Dx); Edema of both lower legs due to peripheral venous insufficiency; Non-pressure chronic ulcer of other part of left lower leg with fat layer exposed (HCC) Discharge Disposition: Home or Self Care 01/16/2024 Orders Only [facility] [address] [place], [place] [phone] Michela Castañeda, RT Bilateral leg edema (Primary Dx) 01/09/2024 Refill [facility] [place] [address] [place] [address] René Brown MD Medication Refill 01/09/2024 2:15 PM EDT Ancillary Procedure [facility] [address] [place] [address] René Nicholas PA-C Status post hip replacement, right 01/09/2024 2:00 PM EDT Office Visit [facility] [address] [place] [address] René Nicholas PA-C Status post hip replacement, right (Primary Dx) 01/07/2024 Travel 12/29/2023 Telephone [facility] [place] [address] [facility] [place] [address] Ame Chirinos RN Cancelled Appointment 12/27/2023 Orders Only [facility] [address] [facility] [address] [place] [address] Radha Cotton MD Vector Remote Device 12/27/2023 Travel 12/27/2023 12:30 PM EDT - 12/27/2023 2:50 PM EDT Surgery [facility] [address] [place] [address] René Brown MD TOTAL HIP ARTHROPLASTY/REPLACEM ENT-ANTERIOR OR REVISION ANTERIOR (CHELLY/KAUSHIK) 12/27/2023 12:16 PM EDT Anesthesia Event [facility] [address] [place] [address] Howard Acuña, DO Record, Lanie Puga, BIRD TENDER 12/27/2023 10:44 AM EDT - 12/27/2023 7:04 PM EDT Hospital Encounter [facility] [address] [place] [phone] René Brown MD Discharge Disposition: Home or Self Care 12/26/2023 Orders Only [facility] [address] [facility] [address] [place] [address] Radha Cotton MD Vector Remote Device 12/25/2023 Travel 12/25/2023 2:45 PM EDT - 12/25/2023 11:59 PM EDT Hospital Encounter [facility] PRE-ADMIT TESTING [place] [address] Preop testing (Primary Dx); Anticoagulation adequate Discharge Disposition: Home or Self Care 12/22/2023 Orders Only [facility] [address] [place] [address] René Brown MD Osteoarthritis of one hip, right (Primary Dx) 12/22/20[place] [address] René Brown MD Surgery Scheduling 12/22/2023 2:57 PM EDT - 12/22/2023 11:59 PM EDT Hospital Encounter [facility] [place] [address] [place] [address] Devaughn Paris MD Edema of both lower legs due to peripheral venous insufficiency (Primary Dx) Discharge Disposition: Home or Self Care 12/21/2023 Telephone [place] [phone] René Brown MD Other 12/20/2023 2:00 PM EDT Office Visit [facility] [address] [address] [place] [address] Gabrielle Alexander, DPM Ingrowing nail (Primary Dx); Pyogenic granuloma of skin; Pain in toe of right foot 12/19/2023 Telephone [place] [phone] René Brown MD Other 12/15/2023 3:00 PM EDT - 12/15/2023 11:59 PM EDT Hospital Encounter [facility] [place] [address] [place] [address] Dejon Capone MD Venous insufficiency (Primary Dx) Discharge Disposition: Home or Self Care 12/08/2023 2:30 PM EDT - 12/08/2023 11:59 PM EDT Hospital Encounter [facility] [place] [address] [place] [address] Dejon Capone MD Non-pressure chronic ulcer of right lower leg with fat layer exposed (HCC) (Primary Dx); Edema of both lower legs due to peripheral venous insufficiency Discharge Disposition: Home or Self Care 12/05/2023 Telephone [facility] [place] [address] Kayleen Turcios Follow-up 12/03/2023 [place] [address] Jona Chau MD Medication Refill 12/01/2023 Orders Only [facility] [address] [place] [phone] Radha Cotton MD Vector Remote Device 12/01/2023 Telephone [facility] [address] [id number] René Brown MD Other 11/30/2023 Refill [facility] [place] [id number] Jona Chau MD Medication Refill 11/30/2023 2:30 PM EDT Office Visit [facility] [address] [place] [phone] Funmi Aldrich APRN Paroxysmal atrial fibrillation (HCC) (Primary Dx); NSTEMI (non-ST elevated myocardial infarction) (HCC); Coronary artery disease involving [place] coronary artery of [place] heart with angina pectoris; Ventricular fibrillation (HCC); single chamber ICD; Acute on chronic HFrEF (heart failure with reduced ejection fraction) (HCC); Hx of mitral valve replacement; NSVT (nonsustained ventricular tachycardia) (HCC) 11/30/2023 2:00 PM EDT Office Visit [facility] [address] [place] [phone] Evangelina Xiong RN Presence of automatic cardioverter/defibril lator (AICD) (Primary Dx); Implantable defibrillator reprogramming/check; Paroxysmal atrial fibrillation (HCC); Cardiogenic shock (HCC); Ventricular fibrillation (HCC); Chronic systolic heart failure (HCC) 11/28/2023 11:59 PM EDT Anesthesia Event [facility] SURGERY [facility] [place] [address] Mackenzie Irwin APRN 11/28/2023 1:00 PM EDT Office Visit [facility] Arma Bridger [address] [place] [address] Dejon Capone MD Bilateral leg edema (Primary Dx) 11/27/2023 Travel 11/24/2023 Orders Only [facility] [address] [address] [id number] René Brown MD Osteoarthritis of one hip, right (Primary Dx) 11/23/2023 [place] [address] Jona Chau MD Cardiology Clearance 11/23/2023 2:25 [place] [address] René Brown MD Osteoarthritis of one hip, right 11/23/2023 2:00 [place] [address] René Brown MD Osteoarthritis of one hip, right (Primary Dx) 11/21/2023 10:01 AM EDT - 11/21/2023 11:59 PM EDT Hospital Encounter [facility] [place] [address] Alireza Clifton PA-C Venous stasis ulcer of right lower leg with edema of right lower leg (HCC) (Primary Dx); Venous insufficiency Discharge Disposition: Home or Self Care 11/14/2023 10:04 AM EDT - 11/14/2023 11:59 PM EDT Hospital Encounter [facility] [place] [address] Alireza Clifton PA-C Venous stasis [...] or Self Care 11/07/2023 Telephone [facility] [place] [address] [place] [address] Harsha Hayward, RT Follow-up 11/07/2023 10:10 AM EDT - 11/07/2023 11:59 PM EDT Hospital Encounter [facility] [address] [place] [address] Alireza Clifton PA-C Venous stasis ulcer of other part of right lower leg limited to breakdown of skin, unspecified whether varicose veins present (HCC) (Primary Dx); Venous stasis ulcer of right lower leg with edema of right lower leg (HCC); Venous insufficiency; Venous ulcer with fat layer exposed (HCC) Discharge Disposition: Home or Self Care 11/01/2023 [place] [address] René Brown MD Other 10/31/2023 10:00 AM EDT - 10/31/2023 11:59 PM EDT Hospital Encounter [facility] [place] [address] [place] [address] Alireza Clifton PA-C Venous stasis ulcer of right lower leg with edema of right lower leg (HCC) (Primary Dx); Chronic venous hypertension (idiopathic) with ulcer and inflammation of right lower extremity (HCC); Venous insufficiency Discharge Disposition: Home or Self Care 10/23/2023 12:17 PM EDT - 10/23/2023 11:59 PM EDT Hospital Encounter [facility] [place] [address] [place] [address] Alireza Clifton PA-C Chronic venous hypertension (idiopathic) with ulcer and inflammation of right lower extremity (HCC) (Primary Dx); Venous stasis ulcer of right lower leg with edema of right lower leg (HCC); Venous ulcer with fat layer exposed (HCC); Chronic systolic heart failure (HCC); Paroxysmal atrial fibrillation (HCC) Discharge Disposition: Home or Self Care 10/19/2023 [place] [address] Jona Chau MD Medication Refill 10/17/2023 Telephone [facility] [place] [address] [place], [place] [phone] Jona Chau MD Medication Question 10/17/2023 [place] [address] René Brown MD Other (cancel surgery) 10/17/2023 11:15 [place] [address] René Brown MD Open wound of right lower leg, initial encounter (Primary Dx); Osteoarthritis of one hip, right 10/12/2023 Telephone [facility]G PRE-ADMIT TESTING [facility] [place] [address] Chanell Kothari RN Cardiology Clearance 10/11/2023 [place] [address] René Brown MD Other 10/11/2023 Travel 10/11/2023 Telephone [facility] [address] [address] Jona Chau MD Cardiology Clearance 10/11/2023 12:45 PM EDT - 10/11/2023 11:59 PM EDT Hospital Encounter [facility] PRE-ADMIT TESTING [facility] [place] [address] Discharge Disposition: Home or Self Care 10/11/2023 2:30 PM EDT Office Visit [facility] [address] [address] Arnulfo Sequeira MD Paroxysmal atrial fibrillation (HCC) (Primary Dx); Coronary artery disease involving [place] coronary artery of [place] heart with angina pectoris; NSTEMI (non-ST elevated myocardial infarction) (HCC); Chronic systolic heart failure (HCC); Hx of mitral valve replacement; S/P CABG x 2; Primary hypertension 10/05/2023 Telephone CLINICAL OUTCOMES [facility] [place] [address] Margarita Díaz, SHA Follow-up (HF) 10/04/2023 Telephone [facility] [place] [address] [place] [address] Michelle De La O, RN Hospital Follow Up 10/04/2023 Patient Outreach [facility] [address] [facility] 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 [facility] [place] [address] Vinnie Crowell MD CORONARY ANGIOGRAM WITH GRAFTS / CARDIAC CATHETERIZATION 09/30/2023 2:09 PM EDT - 10/03/2023 6:27 PM EDT Hospital Encounter [place] [address] Amber Fuller MD Elliott, Andrew Wentworth, MD Jaligama, Deepthi, MD Chest pain, unspecified type (Primary Dx); Shortness of breath; Lower extremity edema Discharge Disposition: Home or Self Care 09/30/2023 Travel 09/25/2023 Orders Only [facility] [address] [facility] [address] [place] [address] Radha Cotton MD Vector Remote Device 08/10/2023 [facility] [address] [id number] René Brown MD Osteoarthritis of one hip, right (Primary Dx) 08/10/2023 1:45 PM EST Office Visit [facility] [address] [place] [address] René Brown MD Osteoarthritis of one hip, right (Primary Dx) 08/08/2023 [place] [address] Jona Chau MD Medication Refill 07/31/2023 [place] [address] Clara Barrett CMA Coronary artery disease involving [place] coronary artery of [place] heart with angina pectoris (Primary Dx); ASHD (arteriosclerotic heart disease); SOB (shortness of breath) 07/27/2023 1:02 PM EST - 07/27/2023 11:59 PM EST Hospital Encounter [facility] ECHO [address] [place] [address] [address] [place] [address] Jona Chau MD ASHD (arteriosclerotic heart disease); SOB (shortness of breath) Discharge Disposition: Home or Self Care 07/18/2023 Patient Outreach [facility] [address] [place] [address] Gaye Stern MD Central Order Completion Outreach (Colon) 07/06/2023 2:15 PM EST Office [place] [address] Jona Chau MD ASHD (arteriosclerotic heart disease) (Primary Dx); SOB (shortness of breath) 06/26/2023 Orders Only [facility] [address] [place] [address] [address] [place] [address] Radha Cotton MD Vector Remote Device 06/26/2023 Telephone [facility] [address] [place] [address] [address] [place] [address] Evagnelina Xiong, RN Results (Carelink results) 06/07/2023 [place] [address] Jona Chau MD Medication Refill (Transfer to [facility] patient Losartan) 05/31/2023 3:00 PM EST - [...] [facility]P [facility] [address] [place] [address] Gaye Stern MD Screening for cancer of the rectum; Screen for colon cancer 03/31/2023 Telephone [facility] [address] [place] [address] Gaye Stern MD Paperwork/forms (copies of xray and MRI ) 03/27/2023 Telephone [facility] [address] [place] [address] [place] [phone] Chu Sr RN ICD Check (Remote results) 03/26/2023 Orders Only [facility] [address] [place] [address] [place] [phone] Radha Cotton MD Vector Remote Device 03/18/2023 [place] [address] Jona Chau MD Medication Refill 02/20/2023 Orders Only [facility] [address] [place] [address] [place] [phone] Radha Cotton MD Vector Remote Device 02/20/2023 Telephone [facility] [address] [place] [address] [address] [place] [address] Chu Sr, RN ICD Check (Remote results) 02/14/2023 Travel 02/14/2023 3:00 PM EDT - 02/14/2023 11:59 PM EDT Hospital Encounter [facility] [address] [place] [address] Right hip pain Discharge Disposition: Home or Self Care 01/19/2023 Orders Only [facility] [address] [facility] [address] [place] [address] Radha Cotton MD Vector Remote Device 01/19/2023 Telephone [facility] [address] [place] [address] [address] [place] [address] Evangelina Xiong RN Results 01/09/2023 1:45 PM EDT - 01/09/2023 11:59 PM EDT Hospital Encounter [facility] [address] [place] [phone] Louis Yadav MD Radiculopathy, unspecified spinal region (Primary Dx) Discharge Disposition: Home or Self Care 01/09/2023 Travel 01/09/2023 12:29 PM EDT - 01/09/2023 1:44 PM EDT Hospital Encounter [facility] [address] [place] [address] Louis Yadav MD Radiculopathy, lumbar region Discharge Disposition: Home or Self Care 12/26/2022 Telephone [facility] [address] [place] [address] [place] [phone] Evangelina Xiong, RN Results (Carelink results-) 12/25/2022 Orders Only [facility] [address] [place] [address] [place] [phone] Radha Cotton MD Vector Remote Device 12/19/2022 Telephone [facility] [address] [place] [address] [place] [phone] Radha Cotton MD Other (Medication refill- Metoprolol ER 100 mg ) 11/23/2022 3:00 PM EDT Office Visit [facility] [address] [address] Michela Abarca APRN Chronic systolic heart failure (HCC) (Primary Dx); Class 1 obesity due to excess calories without serious comorbidity with body mass index (BMI) of 33.0 to 33.9 in adult; Mitral valve disease; Paroxysmal atrial fibrillation (HCC); ICD (implantable cardioverter-defibril lator), single, in situ 11/23/2022 2:30 PM EDT Office Visit [facility] [address] [address] Chu Sr RN Implantable defibrillator reprogramming/check (Primary Dx); Ventricular fibrillation (HCC); Paroxysmal atrial fibrillation (HCC); Chronic systolic heart failure (HCC); ICD (implantable cardioverter-defibril lator), single, in situ 11/18/2022 Orders Only [facility] [address] [address] Radha Cotton MD Vector Remote Device 11/18/2022 Telephone [facility] [address] [address] Radha Cotton MD Other (MDT ICD beeping); Results (Device alert is not set to go off at 4 AM- only at 8 AM) 11/17/2022 Refill [facility] [place] [id number] Jona Chau MD Medication Refill 11/15/2022 Orders Only [facility] [address] [phone] Radha Cotton MD Vector Remote Device 11/14/2022 Telephone [facility] [address] [address] Nicole Jacobsen Other (Carelink monitor reset) 11/01/2022 Refill [facility] [address] [id number] Jona Chau MD Medication Refill 10/27/2022 1:45 PM EDT Office Visit [facility] [place] [address] [place] [address] Jona Chau MD ASHD (arteriosclerotic heart disease) (Primary Dx) 10/25/2022 Orders Only [facility] 7[address] [facility] [address] [place] [address] Radha Cotton MD Vector Remote Device 10/25/2022 Telephone [facility] [address] [place] [address] [address] [place] [address] Radha Cotton MD Other 10/24/2022 Refill [facility] [place] [address] [place] [address] [phone] Jona Chau MD Medication Refill 09/26/2022 Telephone [facility] [address] [place] [address] [place] [phone] Nicole Jacobsen Other (Carelink report) 09/25/2022 Orders Only [facility] [address] [place] [address] [place] [phone] Radha Cotton MD Vector Remote Device 09/08/2022 Travel 09/08/2022 2:56 PM EST - 09/08/2022 11:59 PM EST Hospital Encounter [facility] [address] [place] [address] [facility] Carpal tunnel syndrome of left wrist (Primary Dx); Cervical radiculopathy Discharge Disposition: Home or Self Care 09/07/2022 Orders Only [facility] [address] [facility] [address] [place] [address] Alvarez Jaimes MD Cervical radiculopathy (Primary Dx) 07/20/2022 Patient Outreach [facility] [address] [place] [address] Gaye Stern MD Central Order Completion Outreach (Colon) 06/26/2022 Orders Only [facility] [address] [place] [address] [address] [place] [address] Radha Cotton MD Vector Remote Device 06/17/2022 Refill SEP &V [address] [address] Jona Chau MD Medication Refill 05/18/2022 Telephone [facility] [address] [address] Jona Chau MD Follow-up 05/16/2022 Orders Only [facility] [address] [place] [address] Gaye Stern MD Screening for cancer of the rectum; Screen for colon cancer 05/13/2022 Refill [facility] [address] [place] [address] [address] [place] [address] Michela Abarca APRN Medication Refill 04/28/2022 1:45 PM EDT Office Visit [facility]&[address] [address] Jona Chau MD ASHD (arteriosclerotic heart disease) (Primary Dx) 04/26/2022 Telephone [facility] [place] [address] [place] [address] Gaye Stern MD Medication Management (pt requesting meds removed from med list) 04/26/2022 1:20 PM EDT Office Visit [facility] [place] [address] [place] [address] Helder Yung MD Pre-op examination (Primary Dx); Chronic systolic heart failure (HCC); PAD (peripheral artery disease); Coronary artery disease involving [place] coronary artery of [place] heart with angina pectoris; Atypical nevus; Paroxysmal atrial fibrillation (HCC) 04/22/2022 Refill [facility] [address] [address] Jona Chau MD Medication Refill 04/20/2022 Telephone [facility] [address] [address] Jona Chau MD Cardiology Clearance (error) 03/25/2022 Orders Only [facility] [address] [place] [phone] Radha Cotton MD Vector Remote Device 03/04/2022 Travel 03/04/2022 2:50 PM EDT - 03/04/2022 11:59 PM EDT Hospital Encounter [facility] [address] [place] [address] Lumbar radiculopathy; Spinal stenosis, unspecified spinal region Discharge Disposition: Home or Self Care 02/08/2022 1:00 PM EDT Office Visit [facility] [address] [phone] Chu Sr RN Encounter for implantable defibrillator reprogramming or check (Primary Dx); Cardiogenic shock (HCC); Ventricular fibrillation (HCC); Permanent atrial fibrillation (HCC); ICD (implantable cardioverter-defibril lator), single, in situ 02/08/2022 1:30 PM EDT Office Visit [facility] [address] [address] Radha Cotton MD ICD (implantable cardioverter-defibril lator), single, in situ (Primary Dx) 01/20/2022 [place] [address] Jona Chau MD Medication Refill 12/23/2021 Orders Only [facility] [address] [place] [phone] Radha Cotton MD Vector Remote Device 12/10/2021 Refill [facility] [address] [place] [address] Jona Chau MD Medication Refill 11/09/2021 Refill [facility] [address] [place] [phone] Michela Abarca APRN Medication Refill 10/27/2021 2:30 PM EDT [place] [address] Jona Chau MD ASHD (arteriosclerotic heart disease) (Primary Dx) 10/26/2021 Travel 10/26/2021 12:03 PM EDT - 10/26/2021 11:59 PM EDT Hospital Encounter [facility] [address] [place] [address] [address] [place] [address] Jona Chau MD S/P CABG x 2; SOB (shortness of breath) Discharge Disposition: Home or Self Care 10/15/2021 Travel 10/15/2021 12:23 PM EDT - 10/15/2021 11:59 PM EDT Hospital Encounter [facility] [place] [address] Louis Yadav MD Radiculopathy, lumbar region Discharge Disposition: Home or Self Care 09/23/2021 9:00 AM EDT Clinical Support [facility] [address] [place] [address] [address] [place] [address] Nicole Jacobsen ICD (implantable cardioverter-defibril lator), single, in situ (Primary Dx); Ventricular fibrillation (HCC); NSVT (nonsustained ventricular tachycardia) (HCC) 08/20/2021 Travel 08/20/2021 10:15 AM EST [place] [address] Jona Chau MD S/P CABG x 2 (Primary Dx); SOB (shortness of breath) 08/14/2021 Refill [facility] [address] [place] [address] [address] [place] [address] Michela Abarca APRN Medication Refill 07/20/2021 Orders Only [facility] [address] [place] [address] [address] [place] [address] Radha Cotton MD 07/14/2021 Orders Only [facility] [address] [place], [place] [address] Yasmeen Acosta, TSEPH Chronic pain of left knee (Primary Dx) 07/12/2021 Travel 07/12/2021 2:45 PM EST - 07/12/2021 11:59 PM EST Hospital Encounter [facility] [address], [place] [address] Gaye Stern MD Chronic pain of left knee; History of knee joint replacement Discharge Disposition: Home or Self Care 07/09/2021 Travel 07/09/2021 11:10 AM EST Office Visit [facility] [address] [place], [place] [phone] Gaye Stern MD Chronic pain of left knee (Primary Dx); History of knee joint replacement 07/06/2021 Refill [facility] [address] [place] [address] Jona Chau MD Medication Refill 06/24/2021 Refill [facility] [address] [address] Luciano Chou MD Medication Refill 06/14/2021 Telephone [facility] [address] [place] [phone] Chu Sr RN ICD Check (remote results) 06/14/2021 Travel 06/14/2021 4:00 PM EST Clinical Support [facility] [address] [place] [address] [place] [phone] Chu Sr RN NSTEMI (non-ST elevated myocardial infarction) (HCC) (Primary Dx); Ventricular fibrillation (HCC); ICD (implantable cardioverter-defibril lator), single, in situ 06/10/2021 Travel 06/10/2021 2:20 PM EST Office Visit [facility] [address] [address] Luciano Chuo MD Permanent atrial fibrillation (HCC) (Primary Dx); S/P CABG x 2; Dyslipidemia 05/14/2021 Refill [facility] [address] [place] [address] [address] [place] [address] Radha Cotton MD Medication Refill 05/14/2021 Refill [facility] [address] [place] [address] Anders New MD Medication Refill; Medication Refill 02/24/2021 Travel 02/24/2021 1:30 PM EDT Office Visit [facility] [address] [place] [address] Althea Cole APRN Essential hypertension (Primary Dx); Chronic atrial fibrillation (HCC); Ischemic cardiomyopathy; S/P CABG x 2; Hx of mitral valve replacement 02/08/2021 Orders Only [facility] [address] [place] [address] [address] [place] [address] Radha Cotton MD 02/08/2021 Telephone [facility] [address] [place] [address] [address] [place] [address] Chu Sr, SHA Other (remote alert) 02/05/2021 Travel 02/05/2021 2:00 PM EDT Office Visit [facility] [address] [place] [address] [address] [place] [address] Radha Cotton MD ICD (implantable cardioverter-defibril lator) in place (Primary Dx); Encounter for implantable defibrillator reprogramming or check 01/28/2021 Telephone [facility] [address] [place] [address] Anders New MD Results 01/19/2021 Travel 01/19/2021 1:00 PM EDT - 01/19/2021 11:59 PM EDT Hospital Encounter [facility] [address] [place] [address] Anders New MD Hx of mitral valve replacement; Ischemic cardiomyopathy Discharge Disposition: Home or Self Care 12/11/2020 Refill [facility] [address] [place] [address] Anders New MD Medication Refill 11/27/2020 11:30 AM EDT Office Visit [facility] [place] [address] [facility] [address] [place] [address] Odilia Dumont DPEdd Pain in toes of both feet (Primary Dx); Ingrown left big toenail; Abrasion of lesser toe of left foot, subsequent encounter 11/26/2020 Travel 11/26/2020 2:00 PM EDT Office Visit [facility] [address] [place] [address] Anders New MD Chronic atrial fibrillation (HCC) (Primary Dx); Hx of mitral valve replacement; Ischemic cardiomyopathy 11/09/2020 Telephone [facility] [address] [place] [address] [place] [phone] Evangelina Xiong, RN Other (carelink results) 11/09/2020 9:00 AM EDT Clinical Support [facility] [address] [place] [address] [place] [phone] Evangelina Xiong, RN Ventricular fibrillation (HCC) (Primary Dx); ICD (implantable cardioverter-defibril lator) in place; Cardiogenic shock (HCC) 11/09/2020 Travel 11/06/2020 Travel 11/06/2020 2:30 PM EDT Office Visit [facility] [place] [address] [facility] [address] [place] [address] Odilia Dumont DPM Abrasion of lesser toe of left foot, initial encounter (Primary Dx); Pain in toes of both feet; Ingrown left big toenail 10/16/2020 Refill [facility] [address] [place] [address] Anders New MD Medication Refill 10/09/2020 Travel 10/09/2020 2:30 PM EDT Office Visit [facility] [address] [facility] [address] [place] [address] Odilia Dumont, DPM Abscess of second toenail of left foot (Primary Dx); Ingrowing toenail with infection; Pain in toes of both feet; Onychauxis; Abscess of second toenail of right foot; Ingrown left big toenail 09/25/2020 Travel 09/25/2020 Abstract [facility] [address] [place] [address] Anders New MD 09/25/2020 11:30 AM EDT Office Visit [facility] [place] [address] [address] Odilia Dumont, DPM Pain in toes of both feet (Primary Dx); Ingrown left big toenail; Ingrowing toenail with infection; Abscess of second toenail of right foot; Abscess of second toenail of left foot; Onychauxis 09/18/2020 Travel 09/18/2020 3:00 PM EST Office Visit [facility] [place] [address] [address] Odilia Dumont, DPM Pain in toes of both feet (Primary Dx); Ingrown left big toenail; Ingrowing toenail with infection; Abscess of second toenail of right foot; Abscess of second toenail of left foot; Onychauxis 09/11/2020 Travel 09/11/2020 2:00 PM EST Office Visit [facility] [address] [facility] [address] [place] [address] Odilia Dumont, DPM Ingrown left big toenail (Primary Dx); Ingrowing toenail with infection; Pain in toes of both feet; Abscess of second toenail of left foot; Abscess of second toenail of right foot 09/04/2020 Travel 09/04/2020 8:57 AM EST - 09/04/2020 11:59 PM EST Hospital Encounter [facility] [address] [place] [id number] Helder Yung MD PAD (peripheral artery disease); Open wound of left great toe, initial encounter Discharge Disposition: Home or Self Care 09/01/2020 Travel 09/01/2020 1:40 PM EST Office Visit [facility]P [facility] [place] [address] Helder Yung MD PAD (peripheral artery disease) (Primary Dx); Open wound of left great toe, initial encounter; Ingrown toenail of left foot 08/31/2020 Travel 08/12/[address] [facility] [place] [address] Helder Yung MD Hyperkalemia (Primary Dx) 08/11/2020 Travel 08/11/2020 1:20 PM EST Office Visit IDPTI [address] [facility] [place] [address] Helder Yung MD Encounter for Medicare annual wellness exam (Primary Dx); Coronary artery disease involving [place] coronary artery of [place] heart with angina pectoris; Essential hypertension; Permanent atrial fibrillation (HCC); Screening for thyroid disorder; Encounter for screening for lipid disorder; Screening for metabolic disorder; Screening for iron deficiency anemia 08/10/2020 Telephone [facility] [address] [facility] [address] [place] [address] Evangelina Xiong RN Other (carelink results) 08/10/2020 Travel 08/08/2020 9:00 AM EST Clinical Support [facility] [address] [facility] [address] [place] [address] Evangelina Xiong RN Ventricular fibrillation (HCC) (Primary Dx); ICD (implantable cardioverter-defibril lator) in place 07/30/2020 Telephone [facility] [place] [place] [address] Anders New MD Other 07/23/2020 Orders Only [place] [address] [place] [address] Temi Isabel APRN Need for vaccination (Primary Dx) 07/23/2020 1:20 PM EST Clinical Support [place] [address] [place] [address] Theodora Elizalde Essential hypertension; Ischemic cardiomyopathy 07/20/2020 Travel 07/20/2020 Telephone [place] [address] [place] [address] Temi Isabel APRN Appointment Needed (Lab & Shingles Vaccine) 06/26/2020 Refill [facility] [address] [place] [address] Anders New MD Medication Refill 05/28/2020 Travel 05/28/2020 2:20 PM EST Office Visit [facility] [address] [place] [address] Anders New MD Chronic atrial fibrillation (HCC) (Primary Dx); Essential hypertension; Ischemic cardiomyopathy 05/11/2020 Orders Only [facility] [address] [place] [address] Anders New MD PAF (paroxysmal atrial fibrillation) (HCC) (Primary Dx) 05/08/2020 Telephone [facility] Ar[facility] [address] [place] [address] [place] [address] Evangelina Xiong RN Other (carelink results) 05/08/2020 9:00 AM EDT Clinical Support [facility] [address] [place] [address] [address] [place] [address] Evangelina Xiong RN Ventricular fibrillation (HCC) (Primary Dx); ICD (implantable cardioverter-defibril lator) in place; Cardiogenic shock (HCC) 05/08/2020 Travel 04/22/2020 Travel 04/22/2020 1:20 PM EDT Clinical Support [facility] [address] [place] [address] Theodora Elizalde Essential hypertension; Chronic atrial fibrillation (HCC); Hx of mitral valve replacement 04/20/2020 Travel 04/20/2020 Telephone [facility] [address] [place] [address] Temi Isabel APRN Appointment Needed (lab) 03/09/2020 Refill [facility] [address] [place] [address] Anders New MD Medication Refill 02/07/2020 Travel 02/07/2020 1:00 PM EDT Office Visit [facility] [address] [place] [address] [address] [place] [address] Radha Cotton MD ICD (implantable cardioverter-defibril lator) in place (Primary Dx); Encounter for implantable defibrillator reprogramming or check 01/30/2020 Travel 01/30/2020 11:00 AM EDT Office Visit [facility] [address] [place] [address] Anders New MD Chronic atrial fibrillation (HCC) (Primary Dx); Hx of mitral valve replacement; Essential hypertension; S/P CABG x 2 01/07/2020 Telephone [facility] [address] [place] [address] Temi Isabel APRN Medicare Annual Wellness 01/01/2020 Patient Outreach [facility] [address] [place] [address] Reena Benson RN Care Management - Chart Review 12/12/2019 Travel 12/12/2019 Telephone [facility] [address] [place] [address] Anders New MD Appointment Needed 12/05/2019 Travel 12/05/2019 9:40 AM EDT Office Visit [facility] [place] [address] [place] [address] [address] [place] [address] Helder Ariza MD S/P CABG x 2 (Primary Dx); Hx of mitral valve replacement 12/03/2019 Telephone [facility] [address] [place] [address] [address] [place] [address] Evangelina Xiong, RN Other (carelink results 6 wk check post op) 12/03/2019 2:30 PM EDT Clinical Support [facility] [address] [place] [address] [address] [place] [address] Evangelina Xiong, RN Ventricular fibrillation (HCC) (Primary Dx); Cardiogenic shock (HCC) 12/03/2019 Travel 11/29/2019 Telephone [facility] [place] [facility] [address] [place] [address] [address] [place] [address] Alethea Garcia, Clerical Staff Cardiac Rehab (Referral) 11/29/2019 Travel 11/29/2019 10:00 AM EDT - 11/29/2019 11:59 PM EDT Hospital Encounter [facility] [place] [address] Helder Ariza MD SOB (shortness of breath) Discharge Disposition: Home or Self Care 11/27/2019 Travel 11/23/2019 Refill [facility] [place] [address] [place] [address] Aga Stanley APRN Medication Refill 11/14/2019 Travel 11/14/2019 Orders Only [facility] [address] [place] [address] Helder Ariza MD SOB (shortness of breath) (Primary Dx) 11/14/2019 10:40 AM EDT Office Visit [facility] [address] [place] [address] Helder Ariza MD S/P CABG x 2 (Primary Dx); Hx of mitral valve replacement 11/13/2019 Patient Outreach [facility] [address] [place] [address] Reena Benson RN Cm- Transitional Care Continued 11/13/2019 Telephone [facility] [address] [place] [address] Helder Ariza MD Other (pre registeration ) 11/08/2019 Travel 11/07/2019 Travel 11/07/2019 8:40 AM EDT Telemedicine [facility] [address] [place] [address] Helder Ariza MD Hx of mitral valve replacement; S/P CABG x 2 11/06/2019 Lab Requisition [facility] [place], [place] [id number] Dejon Yung MD Atherosclerotic heart disease of [place] coronary artery with unspecified angina pectoris 11/05/2019 Telephone [facility] [place] [facility] [address] [place] [address] [address] [place] [address] Alethea Garcia, Clerical Staff Cardiac Rehab (Referral) 11/05/2019 Orders Only [facility] [place] [address] [place] [address] [address] [place], [place] [id number] Alethea Garcia, Clerical Staff S/P CABG (coronary artery bypass graft) (Primary Dx) 11/01/2019 Telephone [facility] [address] [place] [address] Temi Isabel APRN Orders 10/31/2019 Telephone [facility] [address] [place] [address] [address] [place] [address] Chu Sr RN Other (post op incision check) 10/31/2019 Travel 10/31/2019 Patient Outreach [facility] [address] [place] [address] Reena Benson, RN Hospital Follow Up; Cm- Transitional Care Initiation; CM- Telephonic Outreach; CM-Medication Assistance; CM-Resource Coordination 10/30/2019 Orders Only [facility] [address] [place] [address] Helder Ariza MD S/P CABG (coronary artery bypass graft) (Primary Dx) 10/15/2019 2:55 PM EDT - 10/30/2019 12:50 PM EDT Hospital Encounter [facility] [place] [address] Anders New MD Kmety, Jamie, MD Locher, James P, MD Chest pain; Chest pain, unspecified type; ST elevation myocardial infarction (STEMI), unspecified artery (HCC); Coronary artery disease involving [place] heart with angina pectoris, unspecified vessel or lesion type; Cardiac arrhythmia; Cardiac arrhythmia, unspecified cardiac arrhythmia type Discharge Disposition: Home or Self Care 10/27/2019 Orders Only [facility] [address] [facility] [place] [address] Radha Cotton MD 10/22/2019 Travel 10/22/2019 Orders Only [facility] [address] [facility] [address] [place] [address] Radha Cotton MD 10/21/2019 Travel 10/21/2019 11:54 AM EDT Anesthesia Event [facility] [place] [address] Garfield [place] MD Powell, Jeanne, APRN 10/21/2019 11:45 AM EDT - 10/21/2019 1:15 PM EDT Surgery [facility] [place] [address] Radha Cotton MD INTERNAL CARDIOVERTER DEFIBRILLATOR (ICD) IMPLANT 10/17/2019 10:31 AM EDT Anesthesia Event [facility] [place] [address] Nandini Amador MD Zimmermann, Anthony G, MD 10/17/2019 11:15 AM EDT - 10/17/2019 6:05 PM EDT Surgery [facility] [place] [address] Helder Ariza MD CORONARY ARTERY BYPASS GRAFT 10/17/2019 7:46 AM EDT - 10/17/2019 8:46 AM EDT Surgery [facility]MENT PROC[facility] [place] [address] Anders New MD EMERGENT CORONARY ANGIOGRAM 10/15/2019 Travel 10/15/2019 3:00 PM EDT - 10/15/2019 4:00 PM EDT Surgery [facility] [place] [address] Anders New MD LEFT HEART CATHETERIZATION 10/12/2019 2:19 PM EDT - 10/15/2019 2:24 PM EDT Hospital Encounter [facility] [address] [address] Louis Cassidy MD Renard, Cruff, MD Right-sided chest pain (Primary Dx); Elevated troponin; Shortness of breath; Suspected COVID-19 virus infection; Atrial fibrillation, unspecified type (HCC) Discharge Disposition: Discharge/Readmit 10/14/2019 Travel 10/12/2019 Travel 10/12/2019 Telephone [facility] H[facility] [place] [address] [facility] [address] [place] [address] Vee Cervantes APRN Shortness of Breath 09/09/2019 Travel 09/09/2019 9:20 AM EST Office Visit [facility] H&V [facility] [address] [place] [address] Anders New MD Chronic atrial fibrillation (HCC) (Primary Dx); Essential hypertension 08/12/2019 Refill [facility] H&[facility] [address] [place] [address] Anders New MD Medication Refill 07/19/2019 Telephone [facility] [address] [place] [address] Anders New MD Reschedule 04/09/2019 1:20 PM EDT Office Visit [facility] [address] [place] [address] Temi Isabel APRN Annual physical exam [...] Transformation [address] [place] [address] Dior Ceron RN Results (Cologuard Results. ) 03/28/2019 Patient Outreach [facility] [address] [place], [place] [id number] Temi Isabel APRN Medicare Annual Wellness (Annual Wellness Questionnaire) 02/20/2019 Telephone [facility] [address] [place] [address] Temi Isabel APRN Visit Follow Up 02/11/2019 Telephone [facility] H&[facility] [address] [place] [address] Anders New MD Appointment Needed 02/06/2019 Refill [facility] [address] [place] [address] Aga Stanley APRN Medication Refill 11/08/2018 Orders Only [facility] [address] [place], [place] [address] Temi Isabel APRN Screening for colon cancer; Screening for cancer of the rectum 05/21/2018 8:00 AM EST Clinical Support DIPTI [place] [facility] [place] [address] Theodora Elizalde Hyperglycemia (Primary Dx); Annual physical exam; Screening for prostate cancer; Screening for deficiency anemia; Screening for diabetes mellitus; Screening for thyroid disorder; Low testosterone 05/08/2018 2:20 PM EDT Clinical Support [facility] [place] [address] [place] [address] Theodora Elizalde Low testosterone (Primary Dx) 05/07/2018 Refill [facility] [place] [address] [place] [address] Temi Isabel APRN Medication Refill 04/06/2018 1:20 PM EDT Clinical Support [address] [place] [address] Theodora Elizalde Low testosterone 04/02/[address] [place] [address] Temi Isabel APRN Medication Refill 03/08/2018 1:20 PM EDT Clinical Support [address] [place] [address] Theodora Elizalde Low testosterone (Primary Dx) 02/27/2018 10:00 AM EDT Office Visit [address] [place] [address] Temi Isabel, MARCELO Annual physical exam (Primary Dx); Ulnar neuropathy at elbow, right; Essential hypertension; DDD (degenerative disc disease), cervical; Paroxysmal atrial fibrillation (HCC); Screening for colon cancer; Screening for thyroid disorder; Screening for diabetes mellitus; Screening for hyperlipidemia; Chronic bilateral low back pain without sciatica; Screening for deficiency anemia; Screening for prostate cancer; Low testosterone 02/07/2018 9:30 AM EDT Office Visit [facility] H&[facility] [place] [address] [place] [address] Aga Stanley APRN Essential hypertension (Primary Dx); Chronic atrial fibrillation (HCC); Class 1 obesity due to excess calories without serious comorbidity with body mass index (BMI) of 33.0 to 33.9 in adult 02/05/2018 1:20 PM EDT Clinical Support [facility] [address] [place] [address] Theodora Elizalde Low testosterone (Primary Dx) 02/02/[address] [place] [address] Temi Isabel APRN Medication Management 02/02/[address] [place] [address] Temi Isabel APRN Medication Refill 01/22/2018 Telephone [facility] [address] [place] [address] Anders New MD Appointment Needed 01/18/2018 Refill [facility] [address] [place] [address] Anders New MD Medication Refill 01/18/2018 Refill [facility] [address] [place] [address] Anders New MD Medication Refill 01/05/2018 1:40 PM EDT Clinical Support [address] [place] [address] Theodora Elizalde Low testosterone (Primary Dx) 01/02/[address] [place] [address] Temi Isabel APRN Medication Management 12/19/2017 Refill [facility] H&[facility] NPT[facility] [address] [place] [address] Anders New MD Medication Refill 2017 2:40 PM EDT Clinical Support [address] [place] [address] Theodora Elizalde Low testosterone (Primary Dx) 11/28/2017 11:00 AM EDT Office Visit [address] [place] [address] Temi Isabel APRN Low testosterone (Primary Dx); Chronic atrial fibrillation (HCC); DDD (degenerative disc disease), lumbar; DDD (degenerative disc disease), cervical; Essential hypertension 11/20/2017 Patient Outreach [address] [place] [address] Lela Torres RN ED Follow-Up Call; Care Transition; Care Management - Chart Review 11/17/2017 8:28 PM EDT - 11/17/2017 11:05 PM EDT Emergency [facility] [address] [place] [address] Radha Fitzpatrick MD Laceration of left lower extremity, initial encounter (Primary Dx) Discharge Disposition: Home or Self Care 09/25/2017 2:15 PM EDT - 09/25/2017 11:59 PM EDT Hospital Encounter [facility] MRI [address], [place] [address] Phu Schroeder MD Lumbago-sciatica due to displacement of lumbar intervertebral disc Discharge Disposition: Home or Self Care 08/02/2017 8:30 AM EST Clinical Support SEP [facility] [place] [address] Trinity Irwin CCMA Male hypogonadism (Primary Dx) 06/23/2017 Refill [facility] H&V CV [address] [place] [address] Anders New MD Medication Refill 06/22/2017 Telephone [facility] H&V CV [place] [address] [place] [address] Anders New MD Cardiology Clearance 06/22/[address] [facility] [place] [address] Temi Isabel APRN Other 06/21/2017 Orders [address] [facility] [place] [address] Temi Isabel, MARCELO Chronic atrial fibrillation (HCC) (Primary Dx) 06/21/2017 11:00 AM EST - 06/21/2017 11:59 PM EST Hospital Encounter [facility] E[facility] [address] [place] [phone] Chronic atrial fibrillation (HCC); Mitral valve disease; Pre-op examination Discharge Disposition: Home or Self Care 06/21/2017 8:00 AM EST Office Visit [facility] [place] [address] Temi Isabel APRN Pre-op examination (Primary Dx); Essential hypertension; Chronic atrial fibrillation (HCC); Mitral valve disease; Ulnar neuropathy at elbow, right 05/11/2017 2:30 PM EDT Office Visit [address] [phone] Shannan Guevara APRN Wrist sprain, left, initial encounter (Primary Dx); Injury of left hand, initial encounter; Fall, initial encounter 04/25/2017 11:13 AM EDT - 04/25/2017 11:59 PM EDT Hospital Encounter [facility] [place] [address] Essential hypertension; Screening for deficiency anemia Discharge Disposition: Home or Self Care 04/25/2017 10:15 AM EDT - 04/25/2017 11:12 AM EDT Hospital Encounter [facility] 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); Carpal tunnel syndrome of left wrist; Cervical radiculopathy Discharge Disposition: Home or Self Care 04/24/2017 Telephone [facility]P H&V [facility] [address] [place] [address] Anders New MD Medication Refill 03/24/2017 Refill [facility] H&[facility] [address] [place] [address] Anders New MD Medication Refill 02/27/2017 1:00 PM EDT Office Visit [facility] [place] [address] [place] [address] Isabel, Etmi, BIRD TENDER Well adult exam (Primary Dx); DDD (degenerative disc disease), cervical; DDD (degenerative disc disease), lumbar; Mitral valve disease; Essential hypertension; Paroxysmal atrial fibrillation (HCC); Screening for hyperlipidemia; Screening for deficiency anemia; Encounter for screening for nutritional disorder; Screening for colon cancer 01/23/2017 Refill [facility]P H&V [facility] [address] [place] [address] Anders New MD Medication Refill 01/16/2017 11:21 AM EDT - 01/16/2017 11:59 PM EDT [place] [address] Anders New MD Chronic atrial fibrillation (HCC); Mitral valve disease Discharge Disposition: Home or Self Care 11/30/2016 1:30 PM EDT Office Visit [facility]P H&V [facility]PT[facility] [address] [place] [address] Anders New MD Chronic atrial fibrillation (HCC) (Primary Dx); Essential hypertension; Mitral valve disease 11/28/2016 Refill [facility]P H&V NPT[facility] [address] [place] [address] Anders New MD Medication Refill 08/25/2016 Refill SEP H&V [address] [address] Anders New MD Medication Refill 01/25/2016 Refill SEP H&V [address] [address] Anders New MD Medication Refill 12/18/2015 Telephone SEP H&V [address] [address] Anders New MD Cardiology Clearance (Left Total Knee Replacement) 11/12/2015 2:20 PM EDT Office Visit [facility]P H&[facility] NPT[facility] [address] [place] [address] Anders New MD Chronic atrial fibrillation (HCC) (Primary Dx); Essential hypertension 11/03/2015 Telephone [facility] H&[facility] [place] [address] [place] [facility] [place] [address] Anders New MD Note 10/28/2015 Refill [facility] [place] [address] [place] [facility] [place] [address] Anders New MD Medication Refill 06/19/2015 Refill [facility] [place] [address] [place] [address] Anders New MD Medication Refill 06/15/2015 2:00 PM EST Office Visit [facility] [address] [place] [address] Halley Mitchell APRN Chronic atrial fibrillation (HCC) (Primary Dx); Essential hypertension 06/10/2015 Telephone [facility] [address] [place] [address] Anders New MD Other 05/19/2015 Refill [facility]P H&[facility] [address] [place] [address] Anders New MD Medication Refill 12/29/2014 Telephone [facility] [address] [address] Anders New MD Visit Follow Up 12/22/2014 1:30 PM EDT Office Visit [facility] [address] [address] Anders New MD Chronic atrial fibrillation (HCC) (Primary Dx); Essential hypertension; Mitral valve disease 12/11/2014 Refill [facility] H&[facility] [address] [place] [address] Anders New MD Medication Refill 11/14/2014 Refill [facility] [address] [address] Anders New MD Medication Refill 11/14/2014 Refill [facility] H&V [facility] [address] [facility] [place] [address] Anders New MD Medication Refill 07/08/2014 Refill [facility] [address] [place] [address] Anders New MD Medication Refill 06/18/2014 Telephone [facility] H&[facility] [address] [facility] [address] [place] [facility] [place] [address] Anders New MD Appointment Needed 06/04/2014 Refill [facility] [address] [address] Anders New MD Medication Refill 05/30/2014 Telephone [facility] [address] [address] Anders New MD Cardiology Clearance 04/15/2014 Refill [facility] [address] [address] Anders New MD Medication Refill 02/26/2014 Telephone [facility] [address] [address] Anders New MD Cardiology Clearance 02/26/2014 2:15 PM EDT - 02/26/2014 3:30 PM EDT Surgery [place] [address] Ronaldo Briceno MD CARPAL TUNNEL RELEASE ENDOSCOPIC 02/26/2014 12:32 PM EDT - 02/26/2014 4:13 PM EDT Hospital Encounter FTT SAME DAY SURGERY [address] [place] [address] Ronaldo Briceno MD Discharge Disposition: Home or Self Care 02/25/2014 10:30 AM EDT - 02/25/2014 11:59 PM EDT Hospital Encounter FTT PRE-ADMIT [place] [address] Pat, Ftt Preoperative examination, unspecified (Primary Dx); Cubital tunnel syndrome on right Discharge Disposition: Home or Self Care 02/03/2014 12:57 PM EDT - 02/03/2014 11:59 PM EDT Hospital Encounter [facility] [address], [place] [address] Alvarez Jaimes MD Shoulder pain Discharge Disposition: Home or Self Care 01/27/2014 Refill [facility]P [facility] [address] [place] [address] Anders New MD Medication Refill 01/13/2014 3:19 PM EDT - 01/13/2014 11:59 PM EDT Hospital Encounter [facility] [address] [place] [address] Alvarez Jaimes MD Brachial neuritis or radiculitis NOS Discharge Disposition: Home or Self Care 12/10/2013 2:41 PM EDT - 12/10/2013 11:59 PM EDT Hospital Encounter [facility] ECHO [address] [place] [address] Anders New MD Atrial fibrillation (HCC) Discharge Disposition: Home or Self Care 11/21/2013 4:00 PM EDT Office Visit [facility] [address] [place] [address] Anders New MD Atrial fibrillation (HCC) (Primary Dx); HTN (hypertension); Mitral valve disease 11/15/2013 Refill [facility]P [facility] [address] [place] [address] Anders New MD Medication Refill 09/16/2013 Refill [facility]P [facility] [address] [place] [address] Anders New MD Medication Refill 05/14/2013 Refill [facility]P [facility] [address] [place] [address] Anders New MD Medication Refill 04/22/2013 [place] [address] Anders New MD Appointment Needed 04/11/[address] [address] Anders New MD Medication Refill 08/30/[address] [phone] Anders New MD Medication Refill 08/17/2012 [place] [address] Anders New MD Medication Refill 07/04/2012 12:03 PM EST - 07/04/2012 11:59 PM [place] [address] Anders New MD A-fib (HCC); HTN (hypertension) Discharge Disposition: Home or Self Care 07/04/2012 1:00 [place] [address] Anders New MD Atrial fibrillation (HCC) (Primary Dx); HTN (hypertension); Mitral valve disease 06/28/2012 [place] [address] Anders New MD 05/21/2012 Orders Only [address] [address] Anders New MD A-fib (HCC); HTN (hypertension) 04/16/2012 Orders Only [address] [phone] Estrella Fernandes, RMA A-fib (HCC); HTN (hypertension) 04/16/2012 Telephone SEP H&V [facility] [address] [place] [address] Anders New MD Medication Refill 09/02/2011 12:00 PM EST - 09/02/2011 12:42 PM EST Surgery EDG [address] [place] [address] Yuli Fermin MD KNEE ARTHROSCOPY MENISCECTOMY/REPAIR (ALSO COVERS ARTHROSCOPIC INCISION AND DRAINAGE/DEBRIDEMENT) 09/02/2011 10:59 AM EST - 09/02/2011 4:07 PM EST Hospital Encounter EDG [address] [place] [address] Yuli Fermin MD Discharge Disposition: Home or Self Care 08/31/2011 3:30 PM EST - 08/31/2011 11:59 PM EST Hospital Encounter [facility] LABORATORY [address] [place] [address] Pre-operative cardiovascular examination, high risk surgery Discharge Disposition: Home or Self Care 08/31/2011 3:15 PM EST - 08/31/2011 3:29 PM EST Hospital Encounter FTT EKG [address] [place] [address] IUD check up Discharge Disposition: Home or Self Care 08/15/2011 Refill SEP H&V [facility] [address] [place] [address] Anders New MD Medication Refill 08/10/2011 4:35 PM EST - 08/10/2011 11:59 PM EST Hospital Encounter EDG LAB BALA PROCESSING [address] [place] [address] Joint pain Discharge Disposition: Home or Self Care 04/18/2011 3:00 PM EDT - 04/18/2011 11:59 PM EDT Hospital Encounter [facility] [address] [place] [address] Yuli Vogel MD Lumbago Discharge Disposition: Home or Self Care 11/06/2010 11:04 PM EDT - 11/10/2010 4:30 PM EDT Hospital Encounter EDG 7D [facility] [place] [address] Veronique Rehman MD Larkin, John J, MD Closed fracture of olecranon process of ulna; Closed fracture of multiple ribs, unspecified; Open wound of elbow, complicated Discharge Disposition: Home Health Care Svc 11/07/2010 1:00 PM EDT - 11/07/2010 3:00 PM EDT Surgery EDG PERIOP [facility] [place] [address] Yuli Fermin MD ARTHROTOMY, ELBOW 07/19/2010 1:02 PM EST - 07/19/2010 11:59 PM EST Hospital Encounter EDG VASCULAR LAB [facility] [place] [address] Sushil Reid Leg pain Discharge Disposition: Home or Self Care 05/05/2010 3:30 PM EDT - 05/05/2010 11:59 PM EDT Hospital Encounter EDG D-WING XRAY [facility] [place] [address] Fall Discharge Disposition: Home or Self Care 10/27/2009 Orders Only [facility] [address] [place] [address] Scottie Elkins MD 10/19/2009 3:12 PM EDT - 10/19/2009 3:58 PM EDT Emergency HST EPIC CON UNK COV Physicians, [facility] Emergency Josep Krueger MD 05/22/2009 12:01 AM EST - 05/22/2009 11:59 PM EST Hospital Encounter HST EPIC CON UNK EDG Alvarez Jaimes MD 01/19/2009 11:21 AM EDT - 01/19/2009 11:59 PM EDT Hospital Encounter HST IMAGING DREW EDG Alvarez Jaimes MD 11/06/2008 Orders Only [facility]P [facility] [address] [place] [address] Arnulfo Sequeira MD 12/23/2007 12:46 [...] Hospital Encounter HST TCU Spring Varma MD [facility], 01/10/1999 6:37 PM EDT - 01/10/1999 7:48 [...] Hospital Encounter HST EPIC CON UNK EDG Axel Ralph Molina 03/29/1993 6:04 AM EDT - 03/29/1993 11:59 PM EDT Hospital Encounter HST EPIC CON UNK EDG Reyna Ralph Molina 03/26/1993 9:30 AM EDT - 03/26/1993 10:10 AM EDT Hospital Encounter HST 4CS Axel Ralph E 03/14/1992 9:44 AM EDT - 03/14/1992 [...] Dr. Cotton Coronary artery disease invo lving [place] coronary artery of [place] heart with angina pectoris 10/16/2019 Overview (10/16/2019): [...] (10/15/2019): Added automatically from request for surgery [id number] Acute febrile illness 10/13/20192023 Immunizations Immunization Administration Dates Next Due Influenza Virus Vaccine Quadrivalant, Flublok Zoster Recombinant 09/24/2020 04/21/2022 Family History Medical History Relation Name Comments Alcohol Abuse Sister 1 Anesth Problems Neg Hx Relation Name Status Comments Brother Alive Father Mother Sister 1 Sister 2 Alive Social History Smoking Status as of 02/05/2025 Tobacco Use Types Packs/Day Years Used Date Smoking Tobacco: Never Assessed [facility] Utilities Answer Date Recorded In [...] Date Recorded PHQ-2 Total Score 0 10/01/2023 [facility] - Occupational [...] 10/31/2019 Lack of Transportation (Non-Medical) No 10/31/2019 [facility] IP Transportation Answer D ate [...] 1:45 PM EST Office [place] [address] Jona Chau MD [address] [place] [address] 11/07/2025 1:30 PM EDT Office Visit [facility] [address] [place] [address] 11/07/2025 2:00 PM EDT Office Visit [facility] [address] [place] [phone] Funmi Aldrich APRN [address] [place] [address] Medical Devices Implanted Type Area Power Equipment Mechanics Instructor Device Identifier Shelf Expiration Date Model / Serial / Lot Visia Af Mri Vr Surescan - [id number] Implanted:Qty: 1 on 10/21/2019 by Radha Cotton MD at [facility] ICD MEDTRONIC:SHAWNA DRAKE [id number] / [id number] / Lead Pcng 62cm Rv Trplr Scr In Xtd-Retrac Hlx Eltrd Shahida Insl - [id number] Implanted:Qty: 1 on 10/21/2019 by Radha Cotton MD at [facility] Lead MEDTRON[employer]:SHAWNA Joseph SYS [id number] / [id number] / Valve Bioprosthesis Pericardial W/Termafix Process Mitral Perimount 29mm - [id number] Implanted:Qty: 1 on 10/17/2019 by Helder Ariza MD at [facility] N/A: Heart POLLACK LIFESCI 05/11/2023 [id number] / / [id number] Cup Actb Trident Ii Sz-F 56mm Clstr Scr 5hl Tritan Hap Prim - [id number] Implanted:Qty: 1 on 12/27/2023 by René Brown MD at [facility] Right: Hip CHELLY:ORTHOPE DICS [id number] 06/19/2028 702-04-56 F / / [id number] Insert O Degree Trident X 3 36mm Code F - [id number] Implanted:Qty: 1 on 12/27/2023 by René Brown MD at [facility] Right: Hip CHELLY:ORTHOPE DICS [id number] 07/13/2028 723-00-36 F / / [id number] Screw 6.5x25mm Trident Erick Ss Hex Thrd St Lpro Actb Hip - [id number] Implanted:Qty: 1 on 12/27/2023 by René Brown MD at [facility] Right: Hip CHELLY:ORTHOPE DICS [id number] 10/08/2028 0562-3359 / / [id number] Screw 6.5x25mm Trident Erick Ss Hex Thrd St Lpro Actb Hip - [id number] Implanted:Qty: 1 on 12/27/2023 by René Brown MD at [facility] Right: Hip CHELLY:ORTHOPE DICS [id number] 10/08/2028 3314-9852 / / [id number] Stem Sz7 50mm Ofst Accolade Ii Prim Recon Ti Plasm Melfa Ctd - [id number] Implanted:Qty: 1 on 12/27/2023 by René Brown MD at [facility] Right: Hip CHELLY:ORTHOPE DICS [id number] 07/31/2027 7448-9677 / / [id number] Head Fem V-40 36mm +2.5mm Nk Biolox Delta Cerm Tapr Prim Mod - [id number] Implanted:Qty: 1 on 12/27/2023 by René Brown MD at [facility] Right: Hip CHELLY:ORTHOPE DICS [id number] 07/15/2028 6570-0-53 6 / / [id number] Procedures Procedure Name Priority Date/Time Associated Diagnosis Comments [place] REM INTERROG ICPMS <30 D PHYS/QHP Routine 01/10/2025 12:00 AM EDT Vector Remote Device [place] INTERROGATION EVAL REMOTE </90 D 1/2/TRANSONIC ENGINEER LD DFB Routine 01/09/2025 12:00 AM EDT Vector Remote Device [place] REM INTERROG ICPMS <30 D PHYS/QHP Routine 12/10/2024 12:00 AM EDT Vector Remote Device EC ECHOCARDIOGRAM COMPLETE W DOPPLER AND COLOR FLOW MAPPING Routine 12/03/2024 2:12 PM EDT VT (ventricular tachycardia) ([facility]) Healthcare maintenance Shortness of breath NM BONE SCAN WHOLE BODY Routine 12/03/2024 12:45 PM EDT Status post total hip replacement, right VECTOR REMOTE DEVICE Routine 11/21/2024 12:00 AM EDT Vector Remote Device XR HIP RIGHT AP LATERAL W AP PELVIS Routine 11/14/2024 1:11 PM EDT Status post total hip replacement, right PACEART REPORT Routine 11/07/2024 5:12 PM EDT [place] REM INTERROG ICPMS <30 D PHYS/QHP Routine 11/07/2024 12:00 AM EDT Vector Remote Device [place] REM INTERROG ICPMS <30 D PHYS/QHP Routine 10/07/2024 12:00 AM EDT Vector Remote Device [place] INTERROGATION EVAL REMOTE </90 D 1/2/TRANSONIC ENGINEER LD DFB Routine 10/06/2024 12:00 AM EDT [...] 12:40 PM EDT PAD (peripheral artery disease) [place] REM INTERROG ICPMS <30 D PHYS/QHP Routine 09/05/2024 12:00 AM EST Vector Remote Device [place] REM INTERROG ICPMS <30 D PHYS/QHP Routine [...] EST Status post total hip replacement, right [place] REM INTERROG ICPMS <30 D PHYS/QHP Routine 07/05/2024 12:00 AM EST Vector Remote Device [place] INTERROGATION EVAL REMOTE </90 D 1/2/TRANSONIC ENGINEER LD DFB Routine 07/04/2024 12:00 AM EST [...] heart failure (HCC) Coronary artery disease involving [place] coronary artery of [place] heart with angina pectoris Primary hypertension Mitral valve disease Hx of mitral valve replacement PAD (peripheral artery disease) S/P CABG x 2 single chamber ICD [place] REM INTERROG ICPMS <30 D PHYS/QHP Routine 06/03/2024 12:00 AM EST Vector Remote Device [place] REM INTERROG ICPMS <30 D PHYS/QHP Routine 05/03/2024 12:00 AM EDT Vector Remote Device PACEART REPORT Routine 04/17/2024 6:00 PM EDT VECTOR REMOTE DEVICE Routine 04/11/2024 12:00 AM EDT Vector Remote Device XR HIP RIGHT AP LATERAL W AP PELVIS Routine 04/02/2024 2:56 PM EDT Status post hip replacement, right [place] INTERROGATION EVAL REMOTE </90 D 1/2/TRANSONIC ENGINEER LD DFB Routine 03/26/2024 12:00 AM EDT [...] heart failure (HCC) Coronary artery disease involving [place]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 vein [...] - 4.200 mcIU/mL 02/10/2024 1:41 AM EDT [facility] Blood VENOUS BLOOD / Unknown Venipuncture / Unknown 02/09/2024 4:23 PM EDT 02/09/2024 4:24 PM EDT Narrative [facility] - 02/10/2024 1:41 AM EDT Ingestion of daljit doses of biotin (>5 mg/day) taken within 8 hours of drawing blood sample can interfere with this immunoassay test. October Edd Carlee BIRD TENDER CHEMISTRY ORDERABLES Final Result [facility] [address], [place] [address] * LIPID SCREEN (02/09/2024 4:23 PM EDT) Only the most recent of3 resultswithin the time period is included. [facility] Signature Cholesterol 109 <200 mg/dL 02/10/2024 1:41 AM EDT [facility] Comment: < 200 Desirable 200 - 239 Borderline High >= 240 High Triglyceride 82 <150 mg/dL 02/10/2024 1:41 AM EDT [facility] Comment: < 150 Normal 150 - 199 Borderline High 200 - 499 High >= 500 Very High HDL 42 >=40 mg/dL 02/10/2024 1:41 AM EDT [facility] Comment: > 60 Optimal 40 - 60 Acceptable < 40 Low LDL Calculated 51 <100 mg/dL 02/10/2024 1:41 AM EDT [facility] Comment: < 100 Optimal 100 - 129 Near or above optimal 130 - 159 Borderline High 160 - 189 High >= 190 Very High Non-HDL-C Calculated 67 <=129 mg/dL 02/10/2024 1:41 AM EDT [facility] Comment: <130 Desirable 130-159 Above Desirable 160-189 Borderline High 190-219 High >= 220 Very High Fasting Specimen? No None 024 1:41 AM EDT [facility] Blood VENOUS BLOOD / Unknown Venipuncture / Unknown 02/09/2024 4:23 PM EDT 02/09/2024 4:24 PM EDT Vernell Edd Carlee THOMASN CHEMISTRY ORDERABLES Final Result [facility] [address] [place] [address] [facility] [address] [place] [address] * (ABNORMAL) POCT EKG (01/29/2024 2:14 PM EDT) Only the most recent of2 resultswithin the time period is included. 01/29/2024 2:14 PM EDT Impressions SEP OFFICE - 01/29/2024 2:14 PM EDT Suspect underlying AF, demand V pacing, similar to previous ECGs us Vernell Bejarano BIRD TENDER POINT OF CARE CARDIOLOGY Fi nal Result Performing Organization Address [facility] Co de Phone Number SEP [...] ORDERAB LES Final Result Performing Organization Address [facility] Co de Phone Number PACS [...] AIRWAY PLACEMENT (12/27/2023 12:22 PM EDT) Narrative [facility] - 12/27/2023 12:22 PM EDT [...] Unchanged Insertion attempts: 1 : Waits. Title: LABORER PLUMBING Ventilation: BMV lidocaine 4 % ([id number]) laryngotracheal solution - Laryngotracheal 4 mL - 12/27/2023 12:22:00 PM: Howard R Acuña DO [place] ANESTHESIA Final Result [facility] [address] [place] [id number] * (ABNORMAL) COMPREHENSIVE METABOLIC PANEL (12/25/2023 3:57 [...] mL/min/1.7 3 m2 12/25/2023 5:07 PM EDT [facility] Comment:Estimated GFR was ca lculated using the CKD-EPIcr (2020) equation refit without race. The equation is recommended by the National Kidney Foundation - [place] [employer] of Nephrology Task Force. Blood VENOUS BLOOD / Unknown Venipuncture / Unknown 12/25/2023 3:57 PM EDT 12/25/2023 4:01 PM EDT René Brown MD CHEMISTRY ORDERABLES Fi nal Result [facility] [address], [address] [place] [id number] [facility] [address] [place] [address] * XR HIP RIGHT 4 VIEW [...] -Patient is okay to be discharged today [facility] Procedure Details Procedural indication: abnormal nuke Procedural consent: Risks and benefits reviewed directly with patient prior to the procedure Procedural details: Patient was prepped and draped in normal sterile fashion the right radial site was anesthetized using lidocaine. The right radial artery was accessed using Seldinger technique and a 6 Welsh glide sheath was advanced into the radial [...] Edited Result - Final [facility] * EQUIPMENT PROCESSOR HEMODYNAMIC WAVEFORMS (10/03/2023 12:09 PM EDT) Only the most recent of3 resultswithin the time period is included. 10/03/2023 12:0 9 PM EDT us Vinnie Crowell MD CARDIAC CATH ORDERABLES E dited Result - Final Performing Organization Address City/[facility]/ZIP Co de Phone Number [facility] [address] [place] [address] * ECG AND WAVEFORMS - TELEMETRY (10/03/2023 7:05 AM EDT) Only the most recent of36 resultswithin the time period is included. ECG INTERPRET Ventricular Paced [facility] 10/03/2023 7:05 AM EDT Narrative [facility] - 10/03/2023 8:15 AM EDT /AB/HICUITY/ROUTINE QRS 0.20 QT 0.48 See Clinical Report link for waveform capture us Unknown Provider POINT OF CARE CARDIOLOGY Final Result Performing Organization Address [facility] Co de Phone Number [facility] [address] [place] [address] * NM MYOCARDIAL PERFUSION SPECT STRESS AND [...] indicates high risk for cardiac events. us Martinez BIRD TENDER IMG NM CARDIAC ORDERABLES Coco l Result * ST STRESS TEST LEXISCAN (10/02/2023 10:51 AM EDT) Anatomical Region Laterality Modality Cardiac Stress T esting 10/02/2023 10:2 6 AM EDT Impressions 10/02/2023 3:[address] [facility] Test Date: 2023-10-02 Pat Name: ODILIA CERON Department: DEPID Room: 44 Gender: Male Continuous Wave Operator: JENNY DALTON : 1955 Requested By: AMY MARTINEZ Order Number: [id number] Reading MD: Colton Varner Interpretive Statements Stress [...] CORRECTED BLOOD PRESSURES, WORKSHEET IS SCANNED IN [place] UNDER THE CARDIOLOGY TAB AND MEDIA TAB [...] CERON Department: DEPID Room: 4430 Gender: Male Continuous Wave Operator: JENNY DALTON : 1955 Requested By: AMY MARTINEZ Order Number: [id number] Reading MD: Colton Varner Interpretive Statements Stress [...] EDT by Colton Varner us Amy Martinez BIRD TENDER IMG STRESS ORDERABLES Final Re sult * VA US LOWER EXTREMITY ARTERIAL DUPLEX COMPLETE (10/01/2023 4:27 [...] range. Evangelina Mcclure APRN [facility] VASCULAR ORDERABLES Fi nal Result * (ABNORMAL) CBC (10/01/2023 7:26 AM EDT) Only the most recent of12 resultswithin the time period is included. WBC 8.9 3.7 - 10.3 x10(3)/mcL 10/01/2023 7:51 AM EDT [facility] RBC 4.56(L) 4.60 - 6.10 x10(6)/mcL 10/01/2023 7:51 AM EDT [facility] [employer] Hgb 14.6 13.7 - 17.5 g/dL 10/01/2023 7:51 AM EDT [facility] Hct 43.4 40.0 - 51.0 % 10/01/2023 7:51 AM EDT [facility] MCV 95.2 80.0 - 100.0 fL 10/01/2023 7:51 AM EDT [facility] MCH 32.0 26.0 - 34.0 pg 10/01/2023 7:51 AM EDT [facility] MCHC 33.6 30.7 - 35.5 g/dL 10/01/2023 7:51 AM EDT [facility] RDW 13.3 <=14.9 % 10/01/2023 7:51 AM EDT [facility] Platelet 203 155 - 369 x10(3)/mcL 10/01/2023 7:51 AM EDT [facility] MPV 10.0 8.8 - 12.5 fL 10/01/2023 7:51 AM EDT [facility] Blood VENOUS BLOOD / Unknown Venipuncture / Unknown 10/01/2023 7:26 AM EDT 10/01/2023 7:42 AM EDT us Mayank Romero MD HEMATOLOGY ORDERABLES Final R esult Performing Organization Address City/[facility]/ZIP Co de Phone Number [facility] [employer], [address], [place] [address] * MAGNESIUM LEVEL (10/01/2023 7:26 AM EDT) Only the most recent of4 resultswithin the time period is included. Magnesium 2.2 1.6 - 2.4 mg/dL 10/01/2023 8:17 AM EDT [facility] [employer] Blood VENOUS BLOOD / Unknown Venipuncture / Unknown 10/01/2023 7:26 AM EDT 10/01/2023 7:42 AM EDT us Mayank Romero MD CHEMISTRY ORDERABLES Final Re sult [facility] [employer] [facility] [facility] [address], [place] [address] * TROPONIN-T HIGH SENSITIVITY 2HR (09/30/2023 5:08 PM EDT) Only the most recent of2 resultswithin the time period is included. fk-qUyxejbuv-L 2HR 12 <22 ng/L 09/30/2023 5:28 PM EDT [facility] Comment:See the website [employer] for rule out DE care pathway, conditions other than AMI that can cause elevated hs cTnT, and comparison of values from the 4th and 5th generation David tests. https://Fab.[employer].org/topic/clinical-answers/gnt-76522823/cpm-203 98956 hs-cTnT 2Hr Delta from Baseline 0 <4 ng/L 09/30/2023 5:28 PM EDT [facility] Blood VENOUS BLOOD / Unknown Venipuncture / Unknown 09/30/2023 5:08 PM EDT 09/30/2023 5:10 PM EDT Narrative [facility] - 09/30/2023 5:28 PM EDT Ingestion of daljit doses of biotin (>5 mg/day) taken within 8 hours of drawing blood sample can interfere with this immunoassay test. Andrae Tejada APRN CHEMISTRY ORDERABLES Final Result [facility] [address] [place] [address] * TROPONIN-T HIGH SENSITIVITY BASELINE W/ REFLEX (09/30/2023 3:28 PM EDT) Only the most recent of5 resultswithin the time period is included. yq-mFiysvkjc-C 12 <22 ng/L 09/30/2023 3:48 PM EDT [facility] Comment:See the website [employer] for rule out DE care pathway, conditions other than AMI that can cause elevated hs cTnT, and comparison of values from the 4th and 5th generation David tests. [email or web address]/topic/clinical-[email or web address] [email or web address] Blood VENOUS BLOOD / Unknown Venipuncture / Unknown 09/30/2023 3:28 PM EDT 09/30/2023 3:30 PM EDT Narrative [facility] - 09/30/2023 3:48 PM EDT Ingestion of daljit doses of biotin (>5 mg/day) taken within 8 hours of drawing blood sample can interfere with this immunoassay test. [employer] CHEMISTRY ORDERABLES Final Result Performing Organization Address City/[facility]/ZIP Co de Phone Number [facility] [address] [place] [address] * POTASSIUM REPEAT (09/30/2023 3:28 PM EDT) Potassium 4.9 3.5 - 5.0 mmol/L 09/30/2023 3:43 PM EDT [facility] Blood VENOUS BLOOD / Unknown Venipuncture / Unknown 09/30/2023 3:28 PM EDT 09/30/2023 3:30 PM EDT [email or web address] B[employer]ER CHEMISTRY ORDERABLES Final Result Performing Organization Address City/[facility]/ZIP Co de Phone Number [facility] [address] [place] [address] * XR CHEST AP PORTABLE (09/30/2023 3:24 [...] clinician. Andrae Tejada APRN IM DIAGNOSTIC IMAGING ORDTracy ENNIS Final Result * (ABNORMAL) BLOOD GAS, VENOUS [...] 09/30/2023 3:02 PM EDT [facility] O2 Sat. Venous 87.7(H) 40.0 - 70.0 % 09/30/2023 3:02 PM EDT [facility] Inspired O2 RA 09/30/2023 3:02 PM EDT [facility] Blood VENOUS BLOOD / Unknown Venipuncture / Unknown 09/30/2023 2:53 PM EDT 09/30/2023 2:58 PM EDT [email or web address] BIRD T[employer]ER CHEMISTRY ORDERABLES Final Result Performing Organization Address City/[facility] Co de Phone Number [facility] [address], [place] [address] * (ABNORMAL) NT PROBNP (09/30/2023 2:53 PM EDT) Only the most recent of3 resultswithin the time period is included. NT Pro-BNP 701(H) <=229 pg/mL 09/30/2023 3:14 PM EDT [facility] Blood VENOUS BLOOD / Unknown Venipuncture / Unknown 09/30/2023 2:53 PM EDT 09/30/2023 2:54 PM EDT Narrative [facility] - 09/30/2023 3:14 PM EDT An NT pro-BNP level less than 300 pg/mL in any patient, regardless of age, effectively rules out acute CHF with a 99% negative predictive value. Ingestion of daljit doses of biotin (>5 mg/day) taken within 8 hours of drawing blood sample can interfere with this immunoassay test. Spot [employer] CHEMISTRY ORDERABLES Final Result Performing Organization Address [facility]/ZIP Co de Phone Number [facility] [address] [place] [address] * EK EKG 12 LEAD (09/30/2023 1:57 PM EDT) Only the most recent of12 resultswithin the time period is included. Anatomical Region Laterality Modality Electrocardiogra phy 09/30/2023 2:04 PM EDT Impressions 09/30/2023 5:[address] [facility] Test Date: 2023-09-30 Pat Name: ODILIA CERON Department: DEPID Room: Gender: Male Continuous Wave Operator: Rt : 1955 Requested By: [facility] Order Number: [id number] Reading MD: Mike Mullen MD Measurements Intervals Crane Rate: 72 P: [place]: QRS: 51 QRSD: 100 T: 29 QT: 360 QTc: 394 Interpretive Statements Probable underlying atrial fibrillatrion Demand ELECTRONIC VENTRICULAR PACEMAKER Nonspecific ST abnormalites. Electronically Signed On 09-30-2023 17:48:29 EDT by Mike Mullen MD Narrative Procedure Note Blake Mullen MD - 09/30/[address] [facility] Test Date: 2023-09-30 Pat Name: ODILIA CERON Department: DEPID Room: Gender: Male Continuous Wave Operator: Rt : 1955 Requested By: [facility] Order Number: [id number] Reading MD: Mike Mullen MD Measurements Intervals Crane Rate: 72 P: [place]: QRS: 51 QRSD: 100 T: 29 QT: 360 QTc: 394 Interpretive Statements Probable underlying atrial fibrillatrion Demand ELECTRONIC VENTRICULAR PACEMAKER Nonspecific ST abnormalites. Electronically Signed On 09-30-2023 17:48:29 EDT by Mike Mullen MD us Amber Fuller MD IMG ECG ORDERABLES Final Re sult * [facility] LOWER EXTREMITY ARTERIAL PHYSIOLOGICAL (05/31/2023 3:00 PM EST) Only the most recent of2 resultswithin the time period is included. Anatomical Region Laterality Modality Vascular, Leg Vascular Imaging 05/31/2023 2:13 PM EST Impressions 05/31/2023 5:56 PM EST Conclusions * Pressure gradients at the ankles indicate bilateral wmrq-pc-tzkahbkm tibial disease. Mildly dampened PVRs at calf [...] Pressure gradients at the ankles indicate bilateral ncko-mm-lkyhdrwj tibial disease. Mildly dampened PVRs at calf [...] the bilateral first digits. Andreina Stephens APRN IM VASCULAR ORDERABLES Final Result * CREATININE (01/09/2023 1:55 PM EDT) Creatinine 0.81 0.67 - 1.30 mg/dL 01/09/2023 2:22 PM EDT [facility] eGFR (CKD-EPIcr 2020) 97 >=60 mL/min/1.7 3 m2 01/09/2023 2:22 PM EDT [facility] Comment:Estimated GFR was ca lculated using the CKD-EPIcr (2020) equation refit without race. The equation is recommended by the National Kidney Foundation - [place] [employer] of Nephrology Task Force. Blood VENOUS BLOOD / Unknown Venipuncture / Unknown 01/09/2023 1:55 PM EDT 01/09/2023 1:55 PM EDT Louis Yadav MD CHEMISTRY ORDERABLES Final Resu lt [facility] [address] [facility] [place] [address] * MRI LUMBAR SPINE W [...] 01/09/2023 12:59 PM CLINICAL HISTORY: M54.16-Radiculopathy, lumbar zpxbij-UVO-50-CM. COMPARISON: 09/25/2017, 10/15/2021 PROCEDURE COMMENTS: Multiplanar multiecho [...] 01/09/2023 12:59 PM CLINICAL HISTORY: M54.16-Radiculopathy, lumbar wdbngl-JNM-70-CM. COMPARISON: 09/25/2017, 10/15/2021 PROCEDURE COMMENTS: Multiplanar multiecho [...] on this study. Yung Hunter M.D. Diplomate, [place] Board of Electrodiagnostic Medicine Narrative SEP OFFICE [...] 10/15/2021 3:01 PM CLINICAL HISTORY: M54.16-Radiculopathy, lumbar jpywqh-TXT-16-CM. COMPARISON: 09/25/2017 MR lumbar spine PROCEDURE COMMENTS: [...] of nerve root impingement. Procedure Note Alireza Valecnia MD - 10/15/2021 MRI LUMBAR SPINE WITHOUT CONTRAST, 10/15/2021 3:01 PM CLINICAL HISTORY: M54.16-Radiculopathy, lumbar gblvss-XDA-19-CM. COMPARISON: 09/25/2017 MR lumbar spine PROCEDURE COMMENTS: [...] hypertrophy. Moderate to severe narrowing of left T0zuzsez foramen and moderate narrowing of right L4 [...] 2:56 PM CLINICAL HISTORY: M25.562-Pain in left fcgc-OKA-28-CM G89.29-Other chronic vwki-VFR-35-CM Z96.659-Presence of unspecified artificial knee osvaq-BMI-05-CM COMPARISON: None. PROCEDURE COMMENTS: XR KNEE LEFT AP LATERAL AND AXIAL FINDINGS: No evidence of knee fracture or malalignment. No significant effusion. Status post knee replacement with intact prosthesis. Procedure Note Chilo Evans MD - 07/12/2021 XR KNEE LEFT AP LATERAL AND AXIAL, 07/12/2021 2:56 PM CLINICAL HISTORY: M25.562-Pain in left ngdv-BPY-89-CM G89.29-Other chronic uqon-KER-78-CM Z96.659-Presence of unspecified artificial knee eriho-CCJ-73-CM COMPARISON: None. PROCEDURE COMMENTS: XR KNEE LEFT [...] 5.6 % 08/11/2020 10:46 PM EST [facility], [employer] Est. Avg Glucose 117 mg/dL 08/11/2020 10:46 PM EST [facility] [employer] Blood VENOUS BLOOD / Unknown Venipuncture / Unknown 08/11/2020 1:43 PM EST 08/11/2020 1:46 PM EST Narrative [facility], [employer] - 08/11/2020 10:46 PM EST REFERENCE RANGE: Normal: 4.0-5.6% Pre-diabetes: 5.7-6.4% Provisional diagnosis of diabetes: >6.4% Hgb F>10% and anything which shortens red cell survival, such as hemolytic anemia, or unstable hemoglobin variants such as HbSS, HbSC, or HbCC, will lower the HbA1c value associated with a given level of glycemic control. us Helder Yung MD CHEMISTRY ORDERABLES Final Res ult [facility] [address] [place] [address] , [address] [place] [phone] * XR CHEST PA AND LATERAL (10/28/2019 [...] 9:01 AM EDT [facility] UA Appear Turbid(A) Clear 10/23/2019 9:01 AM EDT [facility] UA Glucose Negative Negative mg/dL 10/23/2019 9:01 AM EDT [facility] UA Ketones Trace (5 mg/dL)(A) Negative mg/dL 10/23/2019 9:01 AM EDT [facility] UA Blood Large(A) Negative 10/23/2019 9:01 AM EDT [facility] UA pH 6.0 5.0 - 8.0 [...] 9:01 AM EDT [facility] UA Bacteria 3+(A) Negative /HPF 10/23/2019 9:01 AM EDT [facility] UA Gran Cast 3(H) <=0 /LPF 10/23/2019 9:01 AM EDT [facility]A Trans Epi <1(H) <=0 /HPF 10/23/2019 9:01 AM EDT [facility] Urine URINE SPECIMEN OBTAINED VIA INDWELLING URINARY CATHETER / Unknown 10/23/2019 8:36 AM EDT 10/23/2019 8:44 AM EDT Helder Ariza MD URINE ORDERABLES Final Result Performing Organization Address [facility] de Phone Number [facility] [employer] , [place] [address] * POTASSIUM WHOLE BLOOD (10/22/2019 11:57 PM EDT) Only the most recent of16 resultswithin the time period is included. K-WB 3.9 3.5 - 5.0 mEq/L 10/23/2019 12:10 AM EDT [facility] [employer] [facility] Blood BLOOD SAMPLE TAKEN FROM CENTRAL LINE / Unknown Venipuncture / Unknown 10/22/2019 11:57 PM EDT 10/23/2019 12:08 AM EDT Helder Ariza MD CHEMISTRY ORDERABLES Final Res ult Performing Organization Address [facility] de Phone Number [facility] [employer] , [place] [address] * (ABNORMAL) POC OPEN HEART PROFILE (10/21/2019 1:36 PM EDT) Only the most recent of20 resultswithin the time period is included. pH 7.37 7.37 - 7.44 pH 10/21/2019 1:38 PM EDT [facility] pCO2 45 32 - 45 mmHg 10/21/2019 1:38 PM EDT [facility] pO2 78(L) 80 - 100 mmHg 10/21/2019 1:38 PM EDT [facility] HCO3 25.0 20.0 - 29.0 mmol/L 10/21/2019 1:38 PM EDT [facility] TCO2 27 21 - 30 mmol/L 10/21/2019 1:38 PM EDT [facility] Base Excess -0.3 -2.8 - 2.3 mmol/L 10/21/2019 1:38 PM EDT [facility] O2 Sat 94.0(L) 95.0 - 97.0 % 10/21/2019 1:38 PM EDT [facility] Sodium 138 135 - 148 mmol/L 10/21/2019 1:38 PM EDT [facility] K-WB 4.1 3.5 - 5.3 mEq/L 10/21/2019 1:38 PM EDT [facility] Calcium Ionized 1.11(L) 1.12 - 1.32 mmol/L 10/21/2019 1:38 PM EDT [facility] Chloride 103 98 - 108 mmol/L 10/21/2019 1:38 PM EDT [facility] Glucose WB 187(H) 72 - 112 mg/dL 10/21/2019 1:38 PM EDT [facility] Lactic Acid 1.9(H) 1.0 - 1.7 mmol/L 10/21/2019 1:38 PM EDT [facility] Hgb 10.5(L) 13.5 - 17.1 g/dL 10/21/2019 1:38 PM EDT [facility] Hct 31.0(L) 39.0 - 52.0 % 10/21/2019 1:38 PM EDT [facility] Blood ARTERIAL BLOOD / Unknown 10/21/2019 1:36 PM EDT 10/21/2019 1:38 PM EDT Helder Ariza MD POINT OF CARE TEST ORDERABLES Final Result [facility] [address] [place] [address] * INTERNAL CARDIOVERTER DEFIBRILLATOR (ICD) IMPLANT (10/21/2019 1:18 PM EDT) Narrative [facility] - 10/28/2019 9:16 AM EDT Successful single chamber ICD DFT testing at 15 J us Radha Cotton MD ELECTROPHYSIOLOGY ORDERA BLES Final Result Performing Organization Address [facility] Co de Phone Number [facility] * INTRAOP AIRWAY PLACEMENT (10/21/2019 12:21 PM EDT) Narrative [facility] - 10/21/2019 12:21 PM EDT Valeria Beltrán, LABORER [facility] 10/21/2019 12:21 PM Intraop Airway Placement: Airway type: Non-rebreather us Garfield Wilhelm MD [place] ANESTHESIA Final Re sult Performing Organization Address [facility] Co de Phone Number [facility] [address] [place] [phone] * (ABNORMAL) GLUCOSE METER POC (10/21/2019 8:06 AM EDT) Only the most recent of24 resultswithin the time period is included. [facility] Glucose Meter POC 125(H) 70 - 100 mg/dL 10/21/2019 8:06 AM EDT [facility] Sample Type Capillary 10/21/2019 8:06 AM EDT [facility] Patient Status Non-Critical Patient 10/21/2019 8:06 AM EDT [facility] Blood BLOOD SPECIMEN / Unknown 10/21/2019 8:06 AM EDT 10/21/2019 8:06 AM EDT us Helder Ariza MD POINT OF CARE TEST ORDERABLES Final Result Performing Organization Address [facility] de Phone Number [facility] [address] [place], [place] [id number] * XR ABDOMEN AP (10/21/2019 8:01 AM [...] - 1.9 mmol/L 10/21/2019 6:48 AM EDT [facility] [employer], [employer] Blood VENOUS BLOOD / Unknown Venipuncture / Unknown 10/21/2019 6:18 AM EDT 10/21/2019 6:31 AM EDT us Michael SalazarDelisa Malloy MD CHEMISTRY ORDER PARISH Final Result Performing Organization Address [facility] Co de Phone Number [facility] [address] [facility] , [place] [address] * (ABNORMAL) PARTIAL THROMBOPLASTIN TIME (10/21/2019 6:18 AM EDT) Only the most recent of2 resultswithin the time period is included. PTT 23.5(L) 26.0 - 36.4 second(s) 10/21/2019 6:47 AM EDT [facility] Comment: Therapeutic range for unfractionated heparin: 53.0 [...] ORDE RABLES Final Result Performing Organization Address [facility] Co de Phone Number [facility] [address] [facility] , [place] [address] * PHOSPHORUS LEVEL (10/21/2019 6:18 AM EDT) Pathologist [facility] Phosphorus 4.0 2.5 - 4.5 mg/dL 10/21/2019 7:03 AM EDT [facility] Blood VENOUS BLOOD / Unknown Venipuncture / Unknown 10/21/2019 6:18 AM EDT 10/21/2019 6:31 AM EDT Michael Malloy MD (Ronny) CHEMISTRY ORDER PARISH Final Result Performing Organization Address [facility] Co de Phone Number [facility] [address] [facility] , [address] [place] [phone] * (ABNORMAL) DIFFERENTIAL (10/20/2019 4:08 AM EDT) Only the most recent of5 resultswithin the time period is included. Segs Percent 80 % 10/20/2019 5:06 AM EDT [facility] Lymph Percent 9 % 10/20/2019 5:06 AM EDT [facility] [place] Percent 11 % 10/20/2019 5:06 AM EDT [facility] Neut # 13.6(H) 1.8 - 7.7 x10(3)/mcL 10/20/2019 5:06 AM EDT [facility] Lymph # 1.5 0.6 - 4.8 x10(3)/mcL 10/20/2019 5:06 AM EDT [facility] [place] # 1.9(H) 0.0 - 1.3 x10(3)/mcL 10/20/2019 5:06 AM EDT [facility] Blood VENOUS BLOOD / Unknown Venipuncture / Unknown 10/20/2019 4:08 AM EDT 10/20/2019 4:15 AM EDT Helder Ariza MD HEMATOLOGY ORDERABLES Final Re sult Performing Organization Address [facility] Co de Phone Number [facility] [address] [place] [address] , [place] [address] * O2 SAT - MIXED VENOUS (10/19/2019 11:54 PM EDT) Only the most recent of4 resultswithin the time period is included. Pathologist [facility] O2 Sat Mixed Venous 48.3 40.0 - 70.0 % 10/20/2019 12:07 AM EDT [facility] [facility], [employer] Blood VENOUS BLOOD / Unknown Venipuncture / Unknown 10/19/2019 11:54 PM EDT 10/20/2019 12:03 AM EDT us Helder Ariza MD CHEMISTRY ORDERABLES Final Res ult Performing Organization Address City/[facility]/ZIP Co de Phone Number [facility] [address] [place] [address] , [place] [phone] * (ABNORMAL) POC OPEN HEART WHOLE BLOOD GLUCOSE (10/19/2019 12:48 PM EDT) Only the most recent of2 resultswithin the time period is included. Glucose WB 132(H) 72 - 112 mg/dL 10/19/2019 12:50 PM EDT [facility] Blood BLOOD SPECIMEN / Unknown 10/19/2019 12:48 PM EDT 10/19/2019 12:50 PM EDT us Helder Ariza MD POINT OF CARE TEST ORDERABLES Final Result Performing Organization Address City/[facility]/ZIP Co de Phone Number [facility] [address] [place] [address] * CORTISOL (10/19/2019 5:18 AM EDT) Cortisol 8.56 mcg/dL 10/19/2019 6:2 2 AM EDT [facility] Blood ARTERIAL BLOOD / Unknown Venipuncture / Unknown 10/19/2019 5:18 AM EDT 10/19/2019 5:36 AM EDT Narrative [facility] - 10/19/2019 6:22 AM EDT AM: 4.82 [...] with this immunoassay test. us Dejon Osorio BIRD TENDER CHEMISTRY ORDERABL ES Final Result [facility] [address] [place] [address] DR, [place] [address] * PLATELETS REQUEST (10/18/2019 2:35 AM EDT) Product Code [id number] [facility] Unit Number [id number] [facility] Dispense Status TRANSFUSED [facility] Blood Expiration Date [facility] ISBT 128 Type [address]200 [facility] BA CODING SYSTEM [id number] [facility] Blood Type (Unit) A POS [facility] Product Code [id number] [facility] Unit Number [id number] [facility] Dispense Status TRANSFUSED [facility] Blood Expiration Date [facility] ISBT 128 Type 6200 [facility] BA CODING SYSTEM [id number] [facility] Blood Type (Unit) A POS [facility] Blood 10/18/2019 2:35 AM EDT Helder Ariza MD BLOOD PRODUCT ORDERS Final Res ult [facility] [address] [place] [address] * FFP/PLASMA REQUEST (10/18/2019 2:35 AM EDT) Only the most recent of2 resultswithin the time period is included. Product Code [id number] [facility] Unit Number [id number] [facility] Dispense Status TRANSFUSED [facility] Blood Expiration Date [facility] ISBT 128 Type [address]200 [facility] BA CODING SYSTEM [id number] [facility] Blood Type (Unit) A POS [facility] Product Code [id number] [facility] Unit Number [id number] [facility] Dispense Status TRANSFUSED [facility] Blood Expiration Date [facility] ISBT 128 Type 6200 [facility] BA CODING SYSTEM [id number] [facility] Blood Type (Unit) A POS [facility] Blood 10/18/2019 2:35 AM EDT Helder Ariza MD BLOOD PRODUCT ORDERS Final Res ult Performing Organization Address [facility] de Phone Number [facility] [place] [address] * CRYOPRECIPITATE REQUEST (10/18/2019 2:35 AM EDT) Only the most recent of3 resultswithin the time period is included. Product Code [id number] [facility] Unit Number [id number] [facility] Dispense Status TRANSFUSED [facility] Blood Expiration [facility] ISBT 128 Type [address] [facility] BLOOD [facility] BA CODING SYSTEM [id number] [facility] Blood Type (Unit) A POS [facility] Product Code [id number] [facility] Unit Number [id number] [facility] Dispense Status TRANSFUSED [facility] Blood Expiration Date [facility] ISBT 128 Type [address] [facility]OD [facility] BA CODING SYSTEM [id number] [facility] Blood Type (Unit) A POS [facility] 10/18/2019 2:35 AM EDT Helder Ariza MD BLOOD PRODUCT ORDERS Final Res ult Performing Organization Address City/[facility] Co de Phone Number [facility] [address] [address] * (ABNORMAL) HEMOGLOBIN AND HEMATOCRIT (10/17/2019 8:04 [...] ORDERABLES Final Re sult Performing Organization Address [facility] de Phone Number [facility] [address] [facility] , [address] [phone] * PLATELET COUNT (10/17/2019 8:04 PM EDT) Only the most recent of2 resultswithin the time period is included. Platelet 182 155 - 369 x10(3)/mcL 10/17/2019 8:24 PM EDT [facility] MPV 10.3 8.8 - 12.5 fL 10/17/2019 8:24 PM EDT [facility] Blood ARTERIAL BLOOD / Unknown Venipuncture / Unknown 10/17/2019 8:04 PM EDT 10/17/2019 8:19 PM EDT Helder Ariza MD HEMATOLOGY ORDERABLES Final Re sult Performing Organization Address [facility] Phone Number [facility] [address] [facility] , [place] [address] * (ABNORMAL) FIBRINOGEN (10/17/2019 5:07 PM EDT) Fibrinogen 595(H) 196 - 447 mg/dL 10/17/2019 5:24 PM EDT [facility] Blood VENOUS BLOOD / Unknown Venipuncture / Unknown 10/17/2019 5:07 PM EDT 10/17/2019 5:10 PM EDT Helder Ariza MD HEMATOLOGY ORDERABLES Final Re sult Performing Organization Address [facility] Co de Phone Number [facility] [address] [facility] , [place] [address] * STAPHYLOCOCCUS AUREUS SCREEN (10/17/2019 4:15 PM EDT) Staph aureus PCR Not Detected Not Detected 10/17/2019 7:04 PM EDT [facility] MRSA PCR Not Detected Not Detected 10/17/2019 7:04 PM EDT [facility] [facility] Swab BOTH ANTERIOR NARES / Unknown 10/17/2019 4:15 PM EDT 10/17/2019 5:14 PM EDT Narrative [facility] - 10/17/2019 7:04 PM EDT Staphylococcus aureus target DNA sequence is not detected. This qualitative assay is intended for the detection of Staphylococcus aureus proprietary sequences for the staphylococcal protein A (spa) gene, the gene for methicillin resistance (mecA), and the staphylococcal cassette chromosome mec (SCCmec) inserted into the SA chromosomal attB site. This assay utilizes real time PCR on the [employer] Gene[employer]pert Infinity, and its performance has been verified by the [facility]. A negative result does not [...] has been developed and validated by the [facility] laboratory. Detailed methodology is available upon request. Helder Ariza MD MICROBIOLOGY - GENERAL ORDERAB LES Final Result [facility] [employer], [address] , [address] [place] [id number] * TRANSFUSE CRYOPRECIPITATE (10/17/2019 3:59 PM EDT) [...] of4 resultswithin the time period is included. us Helder Ariza MD NURSING TREATMENT ORDERABLES - BLOOD ADMIN Final Result * ACTIVATED CLOTTING TIME + POC (10/17/2019 3:41 PM EDT) Only the most recent of10 resultswithin the time period is included. ACT+ 132 89 - 169 second(s) 10/17/2019 3:58 PM EDT [facility] Blood BLOOD SPECIMEN / Unknown 10/17/2019 3:41 PM EDT 10/17/2019 3:58 PM EDT Christ Soto MD POINT OF CARE TEST ORDERABLES Fi nal Result 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 10/21/2019 10:36 AM EDT [facility] at 1036 EDT GROSS DESCRIPTION [...] cut surfaces. No distinct calcifications are identified. School Attendance Secretary sections are submitted in A1. /MK 10/21/2019 10:36 AM EDT [facility] MICROSCOPIC DESCRIPTION Microscopic examination is performed and the findings corroborate the diagnosis. 10/21/2019 10:36 AM EDT [facility] EMBEDDED IMAGES 10/21/2019 10:36 AM EDT [facility] Tissue MITRAL VALVE STRUCTURE / Unknown 10/17/2019 2:37 PM EDT 10/18/2019 10:14 AM EDT us Helder Ariza MD PATHOLOGY ORDERABLES Final Res ult Performing Organization Address [facility] Co de Phone Number [facility] [address] [place] [address] [facility] [address] [place] [phone] * DOMINICK (10/17/2019 12:01 PM EDT) Narrative [facility] - 10/17/2019 12:01 PM EDT [...] ORDERABLES Final Resu lt Performing Organization Address [facility] Co de Phone Number [facility] [address] [place] [address] * ANE SWAN JOSÉ MIGUEL PLACEMENT (10/17/2019 11:59 AM EDT) Narrative [facility] - 10/17/2019 11:59 AM EDT [...] ORDERABLES Final Resu lt Performing Organization Address [facility] de Phone Number [facility] [address] [place] [address] * ANE INTRODUCER PLACEMENT (10/17/2019 11:55 AM EDT) Narrative [facility] - 10/17/2019 11:55 AM EDT Maggie Watt MD 10/17/2019 12:12 PM Central Line / Introducer Placement Procedure Date/Time: 10/17/2019 10:39 AM Patient Location: OR Indication: Central Venous Access Ultrasound-Guided: Ultrasound guided Anesthesiologist: Maggie Watt MD Other Staff: Shanai Castañeda RN Placed By: Anesthesiologist Sterility prep: [...] ORDERABLES Final Resu lt Performing Organization Address [facility] Co de Phone Number [facility] [address] [place] [address] * INTRAOP AIRWAY PLACEMENT (10/17/2019 11:50 AM EDT) Narrative [facility] - 10/17/2019 11:50 AM EDT [...] 1 Title: Anesthesiologist us Maggie Watt MD [place] ANESTHESIA Final Result Performing Organization Address City/[facility] Co de Phone Number [facility] [address] [place] [address] * BB HISTORY CHECK (10/17/2019 10:15 AM EDT) BB HISTORY CHECK (1) No Previous History 10/17/2019 10:32 AM EDT [facility] Blood ARTERIAL BLOOD / Unknown 10/17/2019 10:15 AM EDT Anders New MD BLOOD BANK ORDERABLES Final Result Performing Organization Address [facility] de Phone Number [facility] [address] [place] [address] * ABORH (10/17/2019 10:15 AM EDT) ABORH Int A POS 10/17/2019 10:57 AM EDT [facility] Blood ARTERIAL BLOOD / Unknown 10/17/2019 10:15 AM EDT us Anders New MD BLOOD BANK ORDERABLES Final Result Performing Organization Address [facility] de Phone Number [facility] [address] [place] [address] * RED BLOOD CELLS REQUEST (10/17/2019 10:15 AM EDT) Only the most recent of2 resultswithin the time period is included. Pathologist [facility] Product Code [id number] [facility] B[facility]OD [facility] Unit Number [id number] [facility] Crossmatch Interp Compatible [facility] Dispense Status RETURNED [facility] Blood Expiration Date [facility] ISBT [address] [facility] B[facility] BA CODING SYSTEM [id number] [facility] Blood Type (Unit) A POS [facility] Product Code [id number] [facility] BLOOD BANK Unit Number [id number] [facility] Crossmatch Interp Compatible [facility] Dispense Status RETURNED [facility]OD [facility] Blood Expiration Date [facility] ISBT [address] [facility] BLOOD BANK BA CODING SYSTEM [id number] [facility] Blood Type (Unit) A POS [facility] Blood 10/17/2019 10:1 5 AM EDT 10/17/2019 10:19 AM EDT us Helder Ariza MD BLOOD PRODUCT ORDERS Final Res ult Performing Organization Address City/[facility]/[place] [address] * ANTIBODY SCREEN IGG (10/17/2019 10:15 AM EDT) [facility] ABSC IgG Int Negative 10/17/2019 11:07 AM EDT [facility] Blood ARTERIAL BLOOD / Unknown 10/17/2019 10:15 AM EDT us Anders New MD BLOOD BANK ORDERABLES Final Result Performing Organization Address [facility]/ZIP Co de Phone Number [address] [address] * (ABNORMAL) ACTIVATED CLOTTING TIME LR POC (10/17/2019 10:10 AM EDT) Only the most recent of4 resultswithin the time period is included. [facility] ACT-LR 354(H) 89 - 169 second(s) 10/17/2019 10:20 AM EDT [facility] Blood BLOOD SPECIMEN / Unknown 10/17/2019 10:10 AM EDT 10/17/2019 10:20 AM EDT Christ Soto MD POINT OF CARE TEST ORDERABLES Fi nal Result Performing Organization Address [facility] Phone Number [place] [phone] * HEPARIN ANTI-XA, UNF (10/15/2019 9:39 AM EDT) Only the most recent of8 resultswithin the time period is included. [facility] Heparin Level UNF 0.36 0.30 - 0.70 IU/mL 10/15/2019 9:55 AM EDT [facility] Comment:The therapeutic rang e for heparinized patients monitored by the Heparin Lvl UF is 0.30-0.70 IU/mL. Blood VENOUS BLOOD / Unknown Venipuncture / Unknown 10/15/2019 9:39 AM EDT 10/15/2019 9:43 AM EDT Delicia Ramesh MD HEMATOLOGY ORDERABLES Coco l Result Performing Organization Address [facility] Phone Number [facility] [address] [place] [address] * EXTRA LAVENDER (10/14/2019 6:09 PM EDT) Blood VENOUS BLOOD / Unknown Venipuncture / Unknown 10/14/2019 6:09 PM EDT 10/14/2019 6:27 PM EDT Helene Covington MD HEMATOLOGY ORDERABLES Final Resu lt Performing Organization Address [facility] Phone Number [facility] [address] [place] [address] * EXTRA TAFOYA URINE CX (10/14/2019 5:47 AM EDT) Urine URINE SPECIMEN COLLECTION, CLEAN CATCH / Unknown 10/14/2019 5:47 AM EDT 10/14/2019 6:02 AM EDT us Louis Cassidy MD MICROBIOLOGY - GENERAL ORDERABL ES Final Result Performing Organization Address [facility] de Phone Number [facility] [address] [place] [address] * REPEAT LACTIC ACID (10/12/2019 4:34 PM EDT) Lactic Acid 1.6 0.5 - 1.9 mmol/L 10/12/2019 5:02 PM EDT [facility] Blood VENOUS BLOOD / Unknown Venipuncture / Unknown 10/12/2019 4:34 PM EDT 10/12/2019 4:47 PM EDT us Louis Cassidy MD CHEMISTRY ORDERABLES Final Resu lt Performing Organization Address [facility] Phone Number [facility] [address] [place] [address] * CT CHEST W CONTRAST (10/12/2019 4:33 [...] chest x-ray findings. - Louis Cassidy MD [facility] ORDERABLES Final Result * CORONAVIRUS 2018 (COVID-19) - REF LAB (10/12/2019 3:22 PM EDT) CORONAVIRUS 6330-YXUK-[id number]-2 Negative Not Detected 10/14/2019 10:01 PM EDT EXTER[facility] Swab NASOPHARYNGEAL STRUCTURE / Unknown 10/12/2019 3:22 PM EDT 10/12/2019 3:31 PM EDT Narrative EXTERNAL LAB - 10/14/2019 10:01 PM EDT Test performed by reference lab: [place]. See scanned report. Caution should be exercised when interpreting negative results. A negative result does not rule out COVID-19 and cannot be used as sole basis for treatment or patient management decisions. If COVID-19 is still suspected following a negative result, re-testing should be considered. Louis Cassidy MD LAB SEND OUT ORDERABLES Final R esult Performing Organization Address City/[facility] Co de Phone Number EXTERNAL LAB See Scanned Report * INFLUENZA A/B ANTIGENS (10/12/2019 3:22 PM EDT) Influ A Ag Not Detected Not Detected 10/12/2019 3:52 PM EDT [facility] Influ B Ag Not Detected Not Detected 10/12/2019 3:52 PM EDT [facility] Swab NASOPHARYNGEAL STRUCTURE / Unknown 10/12/2019 3:22 PM EDT 10/12/2019 3:39 PM EDT Narrative [facility] - 10/12/2019 3:52 PM EDT Negative or Invalid results in patients with high clinical suspicion should be verified with RT-PCR, available as Respiratory Viral Mini Panel ([id number]) in [facility]. The WHO recommends molecular testing (Respiratory [...] ORDERABL ES Final Result Performing Organization Address [facility] de Phone Number [facility] [address] [place] [address] * PROCALCITONIN (10/12/2019 2:56 PM EDT) Procalcitonin 0.06 <=0.49 ng/mL 10/12/2019 3:38 PM EDT [facility] Blood VENOUS BLOOD / Unknown Venipuncture / Unknown 10/12/2019 2:56 PM EDT 10/12/2019 3:04 PM EDT Narrative [facility] - 10/12/2019 3:38 PM [...] ORDERABLES Final Resu lt Performing Organization Address [facility] de Phone Number [address] [address] * BLOOD CULTURE (NO STAIN) (10/12/2019 2:56 PM EDT) Only the most recent of2 resultswithin the time period is included. Culture Result No Growth at 120 hours. BLOOD CULTURE (NO STAIN) 10/18/2019 6:01 AM EDT [facility] Blood VENOUS BLOOD / Unknown Venipuncture / Unknown 10/12/2019 2:56 PM EDT 10/12/2019 3:04 PM EDT Louis Cassidy MD MICROBIOLOGY - GENERAL ORDERABL ES Final Result Performing Organization Address [facility] Co de Phone Number [facility] [address] [place] [address] , [place] [address] * (ABNORMAL) COLOGUARD (03/27/2019 10:00 AM EDT) COLOGUARD CLINICAL REPORT Positive (A) Not Applicable [facility] Comment: It is recommended that [...] Maren Tobin al, N Engl J Med 2014;370(14):3979-7001.) Test Type: Composite algorithmic analysis of stool [...] can be accessed at the following location: [email or web address]. Additional description of the Cologuard test process, warnings and precautions can be found at [email or web address]. Rx Only. Stool specimen (specimen) 03/27/2019 10:00 AM EDT 03/28/2019 7:12 PM EDT Temi Isabel BIRD TENDER [employer] SCIENCE - ORDERABLE S Final Result Performing Organization Address City/[facility]/ZIP Co de Phone Number [employer] [address] [place] [address], [facility] [employer] [address] [place] [address] * PROSTATE SPECIFIC ANTIGEN (SCREENING) (05/21/2018 8:10 AM EST) Total Psa 2.82 <=4.00 ng/mL 05/21/2018 4:20 PM EST [facility] Blood Venipuncture / Unknown 05/21/2018 8:10 AM EST 05/21/2018 8:10 AM EST Narrative [facility] - 05/21/2018 4:20 PM EST Prostate cancer [...] interfere with this immunoassay test. Temi Isabel BIRD TENDER CHEMISTRY ORDERABLES Coco l Result [facility] [address] [facility] , [place] [address] * THYROID STIMULATING HORMONE (05/21/2018 8:10 AM EST) Only the most recent of2 resultswithin the time period is included. TSH 2.300 0.270 - 4.200 mcIU/mL 05/21/2018 4:49 PM EST [facility] Blood Venipuncture / Unknown 05/21/2018 8:10 AM EST 05/21/2018 8:10 AM EST Narrative [facility] - 05/21/2018 4:49 PM EST Ingestion of daljit doses of biotin (>5 mg/day) taken within 8 hours of drawing blood sample can interfere with this immunoassay test. Temi Isabel BIRD TENDER CHEMISTRY ORDERABLES Coco l Result Performing Organization Address [facility] de Phone Number [facility] [address] [facility] , [place] [address] * TESTOSTERONE LEVEL TOTAL (05/21/2018 8:10 AM EST) Only the most recent of2 resultswithin the time period is included. Testosterone Lvl 630 300 - 720 ng/dL 05/21/2018 4:49 PM EST [facility] Blood VENOUS BLOOD / Unknown Venipuncture / Unknown 05/21/2018 8:10 AM EST 05/21/2018 8:10 AM EST Narrative [facility] - 05/21/2018 4:49 PM EST Values less than 12 ng/dL are not reliable as the intermediate precision coefficient of variation is > 20%. Ingestion of daljit doses of biotin (>5 mg/day) taken within 8 hours of drawing blood sample can interfere with this immunoassay test. Temi Isabel APRN CHEMISTRY ORDERABLES Coco l Result Performing Organization Address [facility] de Phone Number [facility] [address] [facility] , [place] [address] * XR TIBIA FIBULA LEFT [...] Views Procedure Note Yuli Hansen MD - 05/11/2018 XR TIBIA FIBULA LEFT AP AND LATERAL, [...] since November 26, 2016. M48.02-Spinal stenosis, cervical [id number]-69-CM T84.216A-Breakdown (mechanical) of internal fixation device of vertebrae, initial [id number]-CM. TECHNICAL FACTORS: Sagittal and axial T1 and [...] tingling since November 26, 2016.M48.02-Spinal stenosis, cervical wovmmn-VNC-71-CM T84.216A-Breakdown (mechanical) of internal fixation device ofvertebrae, initial aaextfkvh-YYE-43-CM. TECHNICAL FACTORS: Sagittal and axial T1 and [...] at C4-C5 and C5-C6 are unremarkable. Right C4-Z6lvmlrx foramen is moderately narrowed. Left C5-C6 neural [...] grade partial-thickness undersurface tears supraspinatus and infraspinatustendons. Alvarez Jaimes MD [facility] ORDERABLES Final [...] EST) Final No growth at 3 days. [facility] GS Few WBC's Moderate RBC's No organisms seen [facility] Joint fluid specimen (specimen) STRUCTURE OF LEFT KNEE REGION / Unknown 08/10/2011 3:45 PM EST 08/10/2011 4:50 PM EST Narrative [facility] - 08/14/2011 7:55 AM EST Left knee Result [facility] Yuli Fermin MD MICROBIOLOGY - GENERAL ORDERABL ES Final Result Performing Organization Address [facility] Co de Phone Number [facility] [address] [place] [address] * ANAEROBIC CULTURE (08/10/2011 3:45 PM EST) Final No anaerobic growth at 5 days [facility] Joint fluid specimen (specimen) STRUCTURE OF LEFT KNEE REGION / Unknown 08/10/2011 3:45 PM EST 08/10/2011 4:50 PM EST Narrative [facility] - 08/16/2011 5:01 PM EST Left knee Result [facility] Yuli Fermin MD MICROBIOLOGY - GENERAL ORDERABL ES Final Result Performing Organization Address [facility] Co de Phone Number [facility] [address] [place] [address] * JOINT FLUID CRYSTALS (08/10/2011 3:45 PM EST) Crystal JF None Seen [facility] Joint fluid specimen (specimen) 08/10/2011 3:45 PM EST 08/10/2011 4:44 PM EST Narrative [facility] - 08/10/2011 8:32 PM EST Left knee us Yuli Fermin MD BODY FLUIDS AND STOOLS ORDERABL ES Final Result Performing Organization Address [facility] de Phone Number [facility] [address] [place] [address] * JOINT FLUID CELL COUNT (08/10/2011 3:45 [...] PM EST 08/10/2011 4:44 PM EST Narrative [facility] - 08/10/2011 6:10 PM EST Left knee Yuli Fermin MD BODY FLUIDS AND STOOLS ORDERABL ES Final Result Performing Organization Address [facility] Phone Number [facility] [address] [place] [address] * SCANNED PRE/POST PROCEDURES (11/12/2010 12:00 AM [...] * HIV AG/AB (11/08/2010 12:15 PM EDT) [facility] HIV Ag/AB Non-Reactiv e [facility] Blood specimen (specimen) 11/08/2010 12:15 PM EDT 11/08/2010 12:26 PM EDT Spring Varma MD IMMUNOLOGY ORDERABLES Final R esult Performing Organization Address [facility]/ZIP Co de Phone Number [facility] [address] [place] [address] * TROPONIN-I (11/08/2010 12:15 PM EDT) [facility] Troponin-I 0.02 <=0.06 ng/mL [facility] Comment: Troponin Level Significance < [...] ORDERABLES Final Re sult Performing Organization Address City/[facility]/ZIP Co de Phone Number [facility] [address] [place] [address] * ACUTE HEPATITIS PANEL (11/08/2010 12:15 PM EDT) [facility] Hep Bs Ag Negative Negative [facility] Hep B Core IgM Negative Negative [facility] Hep A IgM Negative Negative [facility] Hep C Ab Negative Negative [facility] Blood specimen (specimen) UPPER LIMB STRUCTURE / Unknown 11/08/2010 12:15 PM EDT 11/08/2010 12:26 PM EDT Result [facility] Spring Varma MD CHEMISTRY ORDERABLES Edited Performing Organization Address [facility] Phone Number [facility] [address] [place] [address] * HEPATIC FUNCTION PANEL (11/08/2010 12:15 PM EDT) Pathologist [facility] Total Protein 6.5 6.0 - 8.2 gm/dL [facility] Albumin 3.6 3.6 - 4.7 gm/dL [facility] Bili Direct 0.2 0.0 - 0.4 mg/dL [facility] Bili Total 1.3 0.1 - 1.4 mg/dL [facility] AST 36 16 - 55 IU/L [facility] ALT 30 6 - 72 IU/L [facility] Alk Phos 94 41 - 119 IU/L [facility] Blood specimen (specimen) UPPER LIMB STRUCTURE / Unknown 11/08/2010 12:15 PM EDT 11/08/2010 12:26 PM EDT Result [facility] Spring Varma MD CHEMISTRY ORDERABLES Final Re sult Performing Organization Address [facility] de Phone Number [facility] [address] [place] [address] * SCANNED OR REPORT (11/08/2010 12:00 AM [...] lesions. Yuli Fermin MD [facility] ORDERABL ES Final Result * [...] seen. Yuli Fermin MD [facility] ORDERABL ES Final Result * [...] intact. Yuli Fermin MD [facility] ORDERABL ES Final Result * [...] identified. Yuli Fermin MD [facility] ORDERABL ES Final Result * [...] pelvic fluid or pelvic fracture. Procedure Note HiramVinnie Sushil - 11/07/2010 11/07/2010 CT ABDOMEN/PELVIS WITH [...] DIAGNOSTIC IMAGING ORDERAB LES Final Result * [facility] LOWER EXTREMITY VENOUS RIGHT (07/19/2010 1:35 PM EST) PYRAMIS LINK PYRAMIS Anatomical Region Laterality Modality Vascular, Thigh, Leg Vascular Im aging 07/19/2010 12:4 9 PM EST us Sushil Beavert IMG VASCULAR ORDERABLES Final R esult * [...] a practice prior to that practice using [facility] for Medical Records. Performing Provider: Scottie Elkins [...] Impression- Left basilar scar and/or recurrent atelectasis. Professional Wrestler- YULI HANSEN MD Reading Physician- YULI HANSEN [...] Impression- Left basilar scar and/or recurrent atelectasis. Professional Wrestler- YULI HANSEN MD Reading Physician- YULI HANSEN MD Released Date Time- 10/19/09 1541 us Carlene Barton APRN IMG [facility] HISTORICAL Fin al Result * EK EKG REG (10/19/2009 3:28 PM EDT) Only the most recent of2 resultswithin the time period is included. Anatomical Region Laterality Modality Other 10/19/2009 3:28 PM EDT Narrative 10/19/2009 8:29 PM EDT Atrial fibrillation Anterolateral T wave changes are nonspecific Compared to prior tracing, rhythm is no longer sinus Abnormal ECG Professional Wrestler- PAMELLA Green PhysicianFelix HAMMOND Released Date Time- 10/19/092028 Procedure Note Pamella Hammond MD - 10/19/2009 Atrial fibrillation Anterolateral T wave changes are nonspecific Compared to prior tracing, rhythm is no longer sinus Abnormal ECG Professional Wrestler- PAMELLA Green PhysicianFelix HAMMOND Released Date Time- 10/19/092028 Carlene Barton APRN [facility] CARD HISTORICAL Fi nal Result * CT [...] is most prominent at the C5-C6 level. Professional Wrestler- SPRING Green Physician- RAFFY HERNANDEZ M.D. Released Date Time- 05/22/09 1840 Procedure Note Raffy Hernnadez - 09/18/2009 CT of the cervical spine- [...] is most prominent at the C5-C6 level. Professional Wrestler- SPRING Green Physician- RAFFY HERNANDEZ M.D. Released Date Time- 05/22/09 [address] Jaimes MD [facility] HISTORIC AL Final Result * MR [...] right side at C3-C4, C4-C5, and C6-C7. Professional Wrestler- JODEE Green Physician- GAYLE POWERS M.D. Released [...] right side at C3-C4, C4-C5, and C6-C7. Professional Wrestler- JODEE Green Physician- GAYLE POWERS M.D. Released Date Time- 01/19/09 1502 us Alvarez Jaimes MD [facility] AL Final Result * XR CHEST PA OR AP (12/23/2007 12:00 AM EDT) Anatomical Region Laterality Modality Other 12/23/2007 12/23/2007 Narrative 12/23/2007 12:00 AM EDT Name: SANTOS Story DOB: 1955 VERIFIED [facility] Reason: ac3 Dict.Staff: ARNULFO HURT [id number] Verified By: ARNULFO HURT Niall: 12/23/07 12:55 [...] SANTOS Story : 1955 VERIFIED [facility] Reason: ac3 Dict.Staff: ARNULFO HURT [id number] Verified By: ARNULFO HURT Niall: 12/23/07 12:55 [...] end of result us U Unknown [facility]G [facility] Final Result * XR CHEST PA & LAT (05/19/2006 12:00 AM EST) Anatomical Region Laterality Modality Other 05/19/2006 05/19/2006 Narrative 05/19/2006 12:00 AM EST VERIFIED [facility] Reason: 427.31 272.4 401.9 Dict.Staff: DEVAUGHN PARIS Verified By: YULI HANSEN Niall: 05/22/06 6:27 pm Exams: DIAG-CHEST PA & LATERAL TWO-VIEW CHEST: 05/19/2006. INDICATION: 427.3. IMPRESSION: Normal. D.LETICIA:lkd end of result Procedure Note Unknown, U - 10/22/2009 VERIFIED [facility] Reason: 427.31 272.4 401.9 Dict.Staff: DEVAUGHN PARIS Verified By: YULI HANSEN Niall: 05/22/06 6:27 pm Exams: DIAG-CHEST PA & LATERAL TWO-VIEW CHEST: 05/19/2006. INDICATION: 427.3. IMPRESSION: Normal. D.HURST:lkd end of result us U Unknown WESTERN [...] (HCC) Atrial fibrillation 08/12/2019 Chronic atrial fibrillation ([facility]) Atrial fibrillation 09/09/2019 Essential hypertension Unspecified essential hypertension 09/09/2019 NSTEMI (non-ST elevated myocardial infarction) ([facility]) Acute myocardial infarction, subendocardial infarction, episode of care unspecified 10/15/2019 Right-sided chest pain 10/12/2019 Elevated troponin Other abnormal blood chemistry 10/12/2019 Shortness of breath 10/12/2019 Suspected COVID-19 virus infection 10/12/2019 Atrial fibrillation, unspecified type ([facility]) 10/12/2019 Coronary artery disease involving [place] heart with angina pectoris, unspecified vessel or lesion type 10/17/2019 Acute ischemic heart disease ([facility]) Acute myocardial infarction, unspecified site, episode of care unspecified 10/17/2019 Cardiogenic shock ([facility]) Cardiogenic shock 10/17/2019 Cardiac arrhythmia, unspecified cardiac arrhythmia type 10/21/2019 S/P CABG (coronary artery bypass graft) Postsurgical aortocoronary bypass status 10/30/2019 Chest pain, unspecified type 10/15/2019 ST elevation myocardial infarction (STEMI), unspecified artery ([facility]) 10/15/2019 Coronary artery disease involving [place] heart with angina pectoris, unspecified vessel or lesion type 10/15/2019 Cardiac arrhythmia, unspecified cardiac arrhythmia type 10/15/2019 S/P CABG (coronary artery bypass graft) Postsurgical aortocoronary bypass status 11/05/2019 Atherosclerotic heart disease of [place] coronary artery with unspecified angina pectoris 11/06/2019 [...] fibrillation (HCC) Ventricular fibrillation 12/03/2019 Cardiogenic shock ([facility]) Cardiogenic shock 12/03/2019 S/P CABG [...] care facility 08/11/2020 Coronary artery disease involving [place] coronary artery of [place] heart with angina pectoris 08/11/2020 Essential hypertension [...] Coronary atherosclerosis of unspecified type of vessel, [place] or graft 10/27/2021 NSVT (nonsustained ventricular tachycardia) [...] and arterioles 04/26/2022 Coronary artery disease involving [place] coronary artery of [place] heart with angina pectoris 04/26/2022 Atypical nevus Benign neoplasm of skin, site unspecified 04/26/2022 Paroxysmal atrial fibrillation (HCC) Atrial fibrillation 04/26/2022 ASHD (arteriosclerotic heart disease) Coronary atherosclerosis of unspecified type of vessel, [place] or graft 04/28/2022 NSVT (nonsustained ventricular tachycardia) [...] Coronary atherosclerosis of unspecified type of vessel, [place] or graft 10/27/2022 Vector Remote Device 11/15/2022 [...] Coronary atherosclerosis of unspecified type of vessel, [place] or graft 07/06/2023 SOB (shortness of breath) Shortness of breath 07/06/2023 ASHD (arteriosclerotic heart disease) Coronary atherosclerosis of unspecified type of vessel, [place] or graft 07/27/2023 SOB (shortness of breath) Shortness of breath 07/27/2023 Coronary artery disease involving [place] coronary artery of [place] heart with angina pectoris 07/31/2023 ASHD (arteriosclerotic heart disease) Coronary atherosclerosis of unspecified type of vessel, [place] or graft 07/31/2023 SOB (shortness of breath) Shortness of breath 07/31/2023 ASHD (arteriosclerotic heart disease) Coronary atherosclerosis of unspecified type of vessel, [place] or graft 08/08/2023 SOB (shortness of breath) [...] Atrial fibrillation 10/11/2023 Coronary artery disease involving [place] coronary artery of [place] heart with angina pectoris 10/11/2023 NSTEMI (non-ST elevated myocardial infarction) ([facility]) Acute myocardial infarction, subendocardial infarction, episode of care unspecified 10/11/2023 Chronic systolic heart failure ([facility]) Chronic systolic heart failure 10/11/2023 Hx of mitral valve replacement Heart valve replaced by other means 10/11/2023 S/P CABG x 2 Postsurgical aortocoronary bypass status 10/11/2023 Primary hypertension Unspecified essential hypertension 10/11/2023 Osteoarthritis of one hip, right 10/17/2023 Open wound of right lower leg, initial encounter 10/17/2023 Chronic venous hypertension (idiopathic) with ulcer and inflammation of right lower extremity ([facility]) 10/23/2023 Venous stasis ulcer of right lower leg with edema of right lower leg ([facility]) 10/23/2023 Venous ulcer with fat layer exposed ([facility]) 10/23/2023 Chronic systolic heart failure ([facility]) Chronic systolic heart failure 10/23/2023 Paroxysmal atrial fibrillation ([facility]) Atrial fibrillation 10/23/2023 Venous stasis ulcer of right lower leg with edema of right lower leg ([facility]) 10/31/2023 Chronic venous hypertension (idiopathic) with ulcer and inflammation of right lower extremity ([facility]) 10/31/2023 Venous insufficiency Unspecified venous (peripheral) insufficiency 10/31/2023 Venous stasis ulcer of right lower leg with edema of right lower leg ([facility]) 11/07/2023 Venous insufficiency Unspecified venous (peripheral) insufficiency 11/07/2023 Venous ulcer with fat layer exposed ([facility]) 11/07/2023 Venous stasis ulcer of other part of right lower leg limited to breakdown of skin, unspecified whether varicose veins present ([facility]) 11/07/2023 Venous stasis ulcer of right lower leg with edema of right lower leg ([facility]) 11/14/2023 Venous insufficiency Unspecified venous (peripheral) insufficiency 11/14/2023 Venous ulcer with fat layer exposed ([facility]) 11/14/2023 Venous stasis ulcer of other part of right lower leg limited to breakdown of skin, unspecified whether varicose veins present ([facility]) 11/14/2023 Contusion of lesser toe [...] fibrillation 11/30/2023 NSTEMI (non-ST elevated myocardial infarction) ([facility]) Acute myocardial infarction, subendocardial infarction, episode of care unspecified 11/30/2023 Coronary artery disease involving [place] coronary artery of [place] heart with angina pectoris 11/30/2023 Ventricular fibrillation ([facility]) Ventricular fibrillation 11/30/2023 single chamber ICD 11/30/2023 Acute on chronic HFrEF (heart failure with reduced ejection fraction) ([facility]) 11/30/2023 Hx of mitral valve replacement Heart valve replaced by other means 11/30/2023 NSVT (nonsustained ventricular tachycardia) ([facility]) Paroxysmal ventricular tachycardia 11/30/2023 Presence of automatic cardioverter/defibrillator (AICD) Automatic implantable cardiac defibrillator in situ 11/30/2023 Implantable defibrillator reprogramming/check Fitting and adjustment of automatic implantable cardiac defibrillator 11/30/2023 Paroxysmal atrial fibrillation (HCC) Atrial fibrillation 11/30/2023 Cardiogenic shock ([facility]) Cardiogenic shock 11/30/2023 Ventricular fibrillation (HCC) Ventricular fibrillation 11/30/2023 Chronic systolic heart failure ([facility]) Chronic systolic heart failure 11/30/2023 Vector Remote Device 12/01/2023 Non-pressure chronic ulcer of right lower leg with fat layer exposed ([facility]) Ulcer of lower limb, unspecified [...] heart failure 01/29/2024 Coronary artery disease involving [place] coronary artery of [place] heart with angina pectoris 01/29/2024 Primary hypertension [...] heart failure 02/09/2024 Coronary artery disease involving [place] coronary artery of [place] heart with angina pectoris 02/09/2024 Primary hypertension [...] Coronary atherosclerosis of unspecified type of vessel, [place] or graft 04/04/2024 SOB (shortness of breath) Shortness of breath 04/04/2024 SI (sacroiliac) joint dysfunction Disorders of sacrum 04/05/2024 Sacroiliac joint pain Disorders of sacrum 04/05/2024 Sacroiliitis, not elsewhere classified 04/05/2024 Chronic low back pain, unspecified back pain laterality, unspecified whether sciatica present 04/05/2024 Vector Remote Device 04/11/2024 VT (ventricular tachycardia) ([facility]) Paroxysmal ventricular tachycardia 04/12/2024 Non-pressure [...] Coronary atherosclerosis of unspecified type of vessel, [place] or graft 04/19/2024 SI (sacroiliac) joint dysfunction [...] heart failure 06/12/2024 Coronary artery disease involving [place] coronary artery of [place] heart with angina pectoris 06/12/2024 Primary hypertension [...] Coronary atherosclerosis of unspecified type of vessel, [place] or graft 06/13/2024 Lumbar foraminal stenosis Spinal [...] Coronary atherosclerosis of unspecified type of vessel, [place] or graft 07/02/2024 SOB (shortness of breath) [...] Coronary atherosclerosis of unspecified type of vessel, [place] or graft 08/18/2024 Vector Remote Device 09/05/2024 [...] Coronary atherosclerosis of unspecified type of vessel, [place] or graft 10/02/2024 Vector Remote Device 10/06/2024 [...] essential hypertension 10/15/2019 Coronary artery disease involving [place] coronary artery of [place] heart with angina pectoris 10/15/2019 Class 1 [...] HFrEF (heart failure with reduced ejection fraction) ([facility]) 09/30/2023 Osteoarthritis of one hip, [...] therapy. Stay Tobacco Free Lifestyle No Temi Isabel, MARCELO Care Teams Manager Digital Relationship Specialty Start Date End Date Yuli Caruso MD [facility] [address] [place] [id number] PCP - General Family Medicine 10/05/23
--- OUTSIDE RECORDS SUMMARY | 2025-02-05 11:14 | XMS_ITS | Encounter Summary ---
Author Organization [place] [address] Care Team Providers Care Remote Control Assembler Name Role Phone Temi Isabel APRN Primary Care Provider [phone] Reena Benson RN Unavailable Unavailable Helder Yung MD Primary Care Provider [phone] Temi Isabel APRN Primary Care Provider [phone] Gaye Stern MD Primary Care Provi sonal Unavailable Rene Caruso MD Primary Care Provider [phone] Encounter Details Date Type Department Care Team (Latest Contact Info) Description 11/06/2019 Lab Requisition [facility] [place] [address] [place]jon [place] [phone] Atherosclerotic heart disease of [place] coronary artery with unspecified angina pectoris Social [...] 1:45 PM EST Office [place] [address] Jona Chau MD [address] [facility] [place] [address] 11/07/2025 1:30 PM EDT Office Visit [facility] [address] [place] [address] [address] [place] [address] 11/07/2025 2:00 PM EDT Office Visit [facility] [address] [place] [address] [address] [place] [address] Funmi Aldrich APRN [address] [place] [id number] documented as of this encounter Goals [...] 1:30 PM EDT Atherosclerotic heart disease of [place] coronary artery with unspecified angina pectoris (HCC) [...] mg/dL 11/06/2019 5:44 PM EDT [facility], [facility] Glucose Lvl 95 82 - 100 mg/dL 11/06/2019 5:44 PM EDT [facility], [facility] BUN 14 8 - 23 mg/dL 11/06/2019 5:44 PM EDT [facility], [facility] Creatinine 1.14 0.67 - 1.30 mg/dL 11/06/2019 5:44 PM EDT [facility], [facility] GFR Afr Am 79 >=60 mL/min/1.7 3 m2 11/06/2019 5:44 PM EDT [facility] GFR Non Afr Am 69 >=60 mL/min/1.7 3 m2 11/06/2019 5:44 PM EDT [facility] Comment: This estimated GFR was calculated [...] CHEMISTRY ORDERABLES Final Res ult [facility], [facility] [address] [facility], [place] [address] [address] documented in this encounter Visit Diagnoses Diagnosis Atherosclerotic heart disease of [place] coronary artery with unspecified angina pectoris documented in this encounter Care Teams Remote Control Assembler Relationship Specialty Start Date End Date Temi Isabel APRN [address] [place] [address] [place] [phone] PCP - General Nurse Practitioner-Family 02/27/1707/10 Helder Yung MD [address] [place] [address] [place] [id number] PCP - General Family Medicine 07/23/20 08/10/20 Temi Isabel APRN [address] [place] [address] DR [place] [phone] PCP - General Nurse Practitioner-Family 08/11/2002/07 Gaye Stern MD [address] [place] [address] [place] [address] PCP - General Family Medicine 04/26/22 10/03/23 Rene Caruso MD [facility] [address] [place] [address] PCP - General Family Medicine 10/05/23 Reena Benson, SHA [employer] Strip [employer] Registered Nurse 10/31/19 12/31/19 documented as of this encounter
== END 2025-02-04 23:59 | disposition home or self-care (01) ==
LOC: LAB.DROPOF 02-05 11:08
PROVIDERS: PCP Family Medicine; Visit Provider Family Medicine
DX: N40.0 Benign prostatic hyperplasia without lower urinary tract symptoms (principal)
CPT/HCPCS: G0103

== ENCOUNTER 2025-05-06 13:00 | Day surgery (SDC) | payer MEDICARE, SELFPAY ==
[2025-05-06 13:10] VITALS: BP 144/92; PULSE 87; RESP 16; O2SAT 95; BMI 35.9
[2025-05-06] MEDS: DEXAMETHASONE 10MG/ML 1ML VIAL 10 MG (13:26)
--- NOTE | 2025-05-06 13:26 | EXP.PAIN.PRO ---
Procedure Date: 05/06/25 Time: 13:20 Anesthesiologist:: Michael Baugh CRNA Complications:: None Pre-procedure Diagnosis:: Degenerative disc lumbar spine multilevels. Lumbar radiculopathy. Lumbar spondylosis. Multilevel lumbar facet arthropathy. Multilevel lumbar disc bulge. Lumbar postlaminectomy syndrome. Post-procedure Diagnosis:: Same. Indications for Procedure:: Patient is a very pleasant 69-year-old male who comes our clinic today for lumbar epidural steroid injection. Patient reports responding very well to lumbar epidural steroid injection in the past. Patient describes low lumbar back pain as constant, dull, aching. Also, bilateral hip and leg radicular symptoms to the foot. He rates his pain 7/10. Procedure Details:: Procedure: Lumbar epidural steroid injection under fluoroscopy Informed consent was obtained and the risks and benefits of the procedure were explained to the patient. The patient was taken to the procedure room and noninvasive monitors placed, including noninvasive blood pressure cuff and pulse oximeter. The back was viewed using C-arm Fluoroscopy and prepped using Chloraprep as a cleansing solution and the L4-L5 interspace was palpated. Skin and subcutaneous tissues were anesthetized using lidocaine 1.5% and a 25-gauge needle. After this, an 18-gauge Touhy epidural needle was placed into the L4-L5 interspace and advanced using fluoroscopic guidance and loss of resistance to air until the epidural space was encountered. After confirmation of needle placement in the epidural space, with dye, a solution containing normal saline, 3 mL and dexamethasone 10 mg were incrementally injected into the lumbar epidural space. The patient tolerated the procedure well with no complications. Lumbar epidural we will schedule that lumbar L4-5. However, unable to access the 4 5 intervertebral space. Injection was given at the L5-S1 level. The patient was observed in the Pain Clinic and then discharged home neurologically intact. Plan and Disposition:: Patient was discharged without incident.
[2025-05-06 14:55] VITALS: BP 149/98; PULSE 89; RESP 18; O2SAT 94
[2025-05-06 15:03] VITALS: BP 149/98; PULSE 89; RESP 18; O2SAT 94
== END 2025-05-06 13:40 | disposition home or self-care (01) ==
PROVIDERS: PCP Family Medicine; Visit Provider Nurse Anesthetist, Certified Registered
DX: M51.16 Intervertebral disc disorders with radiculopathy, lumbar region (principal); M47.26 Other spondylosis with radiculopathy, lumbar region; M96.1 Postlaminectomy syndrome, not elsewhere classified; I48.91 Unspecified atrial fibrillation; E11.51 Type 2 diabetes mellitus with diabetic peripheral angiopathy without gangrene; F32.A Depression, unspecified; Z88.5 Allergy status to narcotic agent; Z87.891 Personal history of nicotine dependence; Z79.01 Long term (current) use of anticoagulants; Z79.899 Other long term (current) drug therapy
CPT/HCPCS: 62323; J1100